=== PATIENT | female | born 1960 | race Caucasian/White ===

== ENCOUNTER 2017-06-08 17:14 | Observation (INO) | payer MEDICARE, MEDICAID, SELFPAY ==
[2017-06-08] VITALS (7 sets, daily range): BP systolic 146–157; BP diastolic 65–74; PULSE 63–88; RESP 16–32; TEMP 36.7–36.9; O2SAT 94–98; BMI 35.2; BMI 33.6
--- NOTE | 2017-06-08 17:37 | EKG12_ITS ---
Test Reason : CP Blood Pressure : / mmHG Vent. Rate : 083 BPM Atrial Rate : 083 BPM P-R Int : 174 ms QRS Dur : 108 ms QT Int : 386 ms P-R-T Axes : 030 -58 021 degrees QTc Int : 453 ms Normal sinus rhythm Left anterior fascicular block Abnormal ECG Confirmed by ALLYSON DEUTSCH, LETTY ([id number]), photograph editor EJSSY DAWN ([id number]) on 06/11/2017 2:13:55 PM Referred By: Confirmed By:LETTY VALADEZ MD
--- NOTE | 2017-06-08 17:37 | RAD_ITS ---
STUDY: X-RAY - LEFT SHOULDER REASON FOR EXAM: Female, 56 years old. Chest pain to left shoulder and neck TECHNIQUE: 4 view(s) of the shoulder. COMPARISON: None. FINDINGS: Normal glenohumeral articulation. Mild degenerative hypertrophy at the acromioclavicular joint. Normal acromion. Normal humeral head and visualized proximal humerus. The soft tissue structures are unremarkable. Normal visualized pulmonary apex. RAD/Shoulder min 2 Views IMPRESSION: No acute bony pathology of the shoulder. Electronically Signed: Fernando Walton DO at 18:15 EDT Tel [phone], Service support ,
--- NOTE | 2017-06-08 17:45 | RAD_ITS ---
STUDY: X-RAY CHEST REASON FOR EXAM: Female, 56 years old. Chest pain TECHNIQUE: Frontal and lateral views COMPARISON: December 02, 2013 FINDINGS: The lungs are clear and expanded. There is no demonstrated pleural abnormality. Normal size heart. Normal mediastinum and nathalie. Normal visualized pulmonary arteries. Normal visualized aortic arch and descending thoracic aorta. Mild degenerative changes of the thoracic spine. Normal visualized ribs, clavicles, and shoulders. There is no demonstrated abnormality of the visualized soft tissue structures of the upper abdomen. RAD/Chest PA and Lateral IMPRESSION: Normal x-ray examination of the chest. Electronically Signed: Fernando Walton DO at 18:16 EDT Tel [phone], Service support ,
[2017-06-08 17:59] LABS: Absolute Lymphocyte Count 3.46 X10^3/ul (0.83-4.51); Absolute Neutrophil Count 4.8 X10^3/uL (2.0-7.7); Basophil# 0.03 X10^3/uL; Basophil% 0.3 % (0-1); Eosinophil# 0.18 X10^3/uL; Hematocrit 47.4 % (37-47); Hemoglobin 15.7 g/dl (12.0-15.0); Lymphocyte # 3.46 X10^3/ul (4.0); Mean Corp Hgb Conc 33.1 g/gl (32-36); Mean Corpuscular Hgb 33.4 pg (27.0-32.0); Mean Corpuscular Volume 100.9 fL (81-99); Mean Platelet Vol. 10.6 fl (6.2-12.0); Monocyte# 0.42 X10^3/uL; Monocyte% 4.7 % (0-10); Neutrophil # 4.77 X10^3/uL (2.7-7.7); Neutrophil % 53.9 % (47-70); Platelet Count 179 K/mm3 (150-450); RBC Distribution Width CV 13.5 % (11.6-14.6); RBC Distribution Width SD 50.2 fl (35.1-43.9); White Blood Count 8.9 K/mm3 (4.4-11.0)
[2017-06-08] MEDS: Aspirin 81 MG TAB.CHEW 324 MG PO (18:01)
[2017-06-08 18:09] LABS: POSITIVE COUNT NO; POSITIVE DIFFERENTIAL NO; POSITIVE MORPHOLOGY NO
[2017-06-08 18:12] LABS: Anion Gap 9 (5-15); BUN 14 mg/dL (7-18); BUN/Creat Ratio 15.2 RATIO (10-20); Calcium,Total 10.6 mg/dL (8.5-10.1); Chloride 103 mmol/L (98-107); Creatinine, Serum 0.92 mg/dL (0.55-1.02); EST Glomerular Filtration Rate 66 mL/min (>60); Est Glom Filt Rate - Afr Amer 80 mL/min (>60); Estimated Creatinine Clearance 47.88 ml/min; Glucose 229 mg/dL (74-106); Potassium 3.8 mmol/L (3.5-5.1); Sodium Level 139 mmol/L (136-145)
--- NOTE | 2017-06-08 18:52 | ED.DCSUM_ITS ---
- ER Visit Summary Date of Service: 06/08/17 Chief Complaint: Chest pain History of Present Illness: The patient is a 56 F who presents with chest pain. She states over the last 2 weeks she has had left upper arm pain from her shoulder down to about the elbow. This is worse with movement or palpation. She had attributed this to a musculoskeletal etiology such as possible rotator cuff injury. However tonight she also developed chest pain. She complained of pain across her upper chest and radiating up into her neck. This is been intermittent over the last 2-1/2 hours. She states that it lasts about 10 minutes at a time and is associated with diaphoresis and sweats. She denies associated nausea vomiting or shortness of breath. There are no exacerbating or relieving factors. She does not have a history of coronary disease but does have diabetes hypertension hyperlipidemia family history of coronary disease in a sibling less than age 55 and she is a smoker. Physical Examination: Afebrile vitals are unremarkable Heart regular rate and rhythm Lungs are clear Abdomen soft 2+ radial pulses Patient has some anterior left shoulder tenderness but no chest or neck tenderness Test Results: EKG shows sinus rhythm with a left anterior fascicular block at a rate of 83. Shoulder x-ray is normal. Chest x-ray is normal. Laboratory studies are unremarkable with a negative troponin. Emergency Department Course and Treatment: She was given aspirin. Although she does have a reproducible component of shoulder pain she does not have reproducible chest pain. I would not expect a shoulder etiology to cause chest and neck pain and associated diaphoresis. Given her multiple cardiac risk factors I do feel she needs a rule out with repeat EKG enzymes and stress testing. Her ALIREZA risk score is 3, her heart score is 5. Treatment Plan: [] Disposition: Admit Impression: Chest pain Left shoulder pain This note was generated with [employer] dictation software. It may contain incorrect words, spelling, and punctuation that were not noted in review of the chart prior to signing ED Disposition - Plan for ED Patient: Chief Complaint: Chest Pain Referrals: Darlene Plascencia NP-C [Primary Care Provider] -
--- NOTE | 2017-06-08 19:41 | PCM.HP.STD ---
Problem List (1) Diabetes mellitus type 2 in obese Status: Chronic (2) Atypical chest pain Status: Acute (3) Hypertension Status: Chronic (4) Chronic back pain Status: Chronic (5) GERD (gastroesophageal reflux disease) Status: Chronic (6) COPD (chronic obstructive pulmonary disease) Status: Chronic History of Present Illness Date of Admission: 06/08/17 Chief Complaint: Chest pain today The patient is a 56 year old F with multiple comorbidities including COPD with active smoker about half a pack to a pack per day but no coronary artery disease history came to ER with sudden onset of chest pain which lasted for about 2 and half hours. She complained of left-sided chest pain, persistent with radiation to left neck along with diaphoresis but no shortness of breath, dizziness, near syncope or syncope. Prior to that, she had left arm/shoulder pain pain 2 weeks. ED, EKG shows normal sinus rhythm with LAD, LAFB at 83 bpm. No change from previous EKG in June 2013. [] Past Medical History Past Medical History (Chronic Problems): Chronic Problems Diabetes mellitus type 2 in obese (Chronic) Hypertension (Chronic) Chronic back pain (Chronic) GERD (gastroesophageal reflux disease) (Chronic) COPD (chronic obstructive pulmonary disease) (Chronic) Allergies No Known Allergies Allergy (Verified 06/08/17 17:27) Home Medications: Ambulatory Orders Medication Instructions Recorded Losartan Potassium [Cozaar] 25 mg PO DAILY 06/13/13 Multivitamins,Therapeutic 1 tablet PO DAILY 06/13/13 [Multivitamin] Polyethylene Glycol 3350 [Miralax] 17 gm PO DAILY PRN 06/13/13 Pravastatin [Pravachol] 80 mg PO DAILY 06/13/13 Pregabalin [Lyrica] 200 mg PO BID 06/13/13 Tizanidine HCl [Zanaflex] 4 mg PO TID PRN 06/13/13 Zolpidem Tartrate [Ambien] 10 mg PO QHS PRN PRN 06/13/13 Aspirin [Aspirin, Baby] 81 mg PO DAILY@0800 01/16/14 Budesonide/Formoterol 80-4.5 2 puff INHALATION BID 01/16/14 [Symbicort 80-4.5 Mcg Inhaler] Cholecalciferol (VIT D3) [Vitamin 1,000 unit PO DAILY 01/16/14 D3] Cyanocobalamin [Vitamin B12] 2,000 mg PO DAILY 01/16/14 Meloxicam [Mobic] 7.5 mg PO BID 09/17/15 Metformin HCl [Glucophage] 500 mg PO DAILY 09/17/15 Dexlansoprazole [Dexilant] 60 mg PO DAILY 11/22/16 Hydrocodone Bitartrate [Hysingla 40 mg PO DAILY 11/22/16 ER] Hydrocodone/Acetaminophen 1 each PO BID PRN 11/22/16 [Hydrocodon-Acetaminoph 7.5-325] Albuterol Sulfate [Ventolin Hfa] 2 puff INHALATION Q4H PRN PRN 06/08/17 Duloxetine HCl [Duloxetine HCl] 06/08/17 Estradiol [Estradiol] 06/08/17 Fluticasone 0.05% [Flonase Nasal 2 spray NASAL DAILY PRN 06/08/17 [place]] Lidocaine [Lidoderm Patch] 1 patch TOPICAL DAILY 06/08/17 Smoking Status: Current every day smoker Review of Systems Constitutional: Denies: Chills, Fever, Weight Change HEENT: Reports: Sinus Congestion. Denies: Head Aches, Sinus Drainage Cardiovascular: Reports: Chest Pain. Denies: Palpitations Respiratory: Denies: Cough, Shortness of breath at rest, Sputum production Gastrointestinal: Denies: Abdominal Pain, Nausea, Vomiting Genitourinary: Denies: Dysuria Musculoskeletal: Denies: Joint Pain, Joint Tenderness Skin: Denies: Rash, Wounds Neurological: Denies: Numbness, Tingling, Focal weakness Psychiatric: Denies: Anxiety, Depression, Homicidal Ideations, Suicidal Ideations Hematologic/ Lymphatic: Denies: Easy Bruising, Easy Bleeding VTE Information - Inpt Only VTE Present on Admission: No VTE Mechan Device Prophylaxis: SCD's VTE Pharm Prophylaxis ordered?: Yes Patient Problems: Active and Suspected Problems Atypical chest pain (Acute) - Physical Exam General: Alert, Oriented x3, Cooperative HEENT: Atraumatic, PERRLA, EOMI, Normocephalic Neck: Supple, No JVD, Negative Carotid Bruits Lungs: Clear to auscultation, No rhonchi, No wheeze, No rales, Diminished Cardiovascular: Regular rate, Normal S1, Normal S2, No murmurs Abdomen: Bowel Sounds Present, Soft, Non Tender, Non-Distended Extremities: No edema, Capillary Refill Less than 3 Seconds Skin: No rashes, No breakdown Musculoskeletal: No Tenderness to Palpation of Joints or Extremities Neurological: Cranial nerves II-XII grossly intact Psych/Mental Status: Normal Affect, Appropriate Vital Signs Temp Pulse Resp BP Pulse Ox 98.4 F 65 16 157/65 H 94 06/08/17 17:23 06/08/17 19:00 06/08/17 19:00 06/08/17 19:00 06/08/17 19:00 Assessment/Plan Active and Suspected Problems Atypical chest pain (Acute) The patient is a 56 year old F with multiple comorbidities including COPD with active smoker about half a pack to a pack per day but no coronary artery disease history came to ER with sudden onset of chest pain which lasted for about 2 and half hours. She complained of left-sided chest pain, persistent with radiation to left neck along with diaphoresis but no shortness of breath, dizziness, near syncope or syncope. Her chest pain aggravates on deep inspiration. Prior to that, she had left arm/shoulder pain pain 2 weeks. ED, EKG shows normal sinus rhythm with LAD, LAFB at 83 bpm. No change from previous EKG in June 2013. 1. Atypical chest pain pleuritic in nature rule out acute coronary syndrome: Her ALIREZA score is 3. She had a stress test and [facility] about in 2014 and was negative as per the patient. The patient is being admitted in PCU. Cycle cardiac enzymes. Treadmill nuclear stress test tomorrow morning. Continue aspirin, nitro ointment 1% as needed for chest pain, statin and losartan. 2. COPD with active smoker: Stable not in exacerbation. Smoking cessation counseling done. Continue Symbicort and albuterol inhaler as needed. Chest x-ray reported normal. 3. Hypertension: Blood pressure slightly elevated. On losartan 25 mg daily first dose now; titrate up if needed. 4. Diabetes mellitus type 2 with uncontrolled hyperglycemia: Glucose 229. A1c tomorrow a.m. Accu-Chek before meals and at bedtime and cover with NovoLog sliding scale. 5. Other comorbidities include chronic arthritis involving lumbar spine with chronic back pain, GERD/PUD and possible diabetic neuropathy: Home medication reconciliation done. On chronic pain medication including hydrocodone 7.5/325 twice daily as needed and hydrocodone extended release 40 mg daily. Discussed with the pharmacist. She is to OxyContin 50 mg twice daily and Vicodin 10/325 twice daily. DVT prophylaxis: On heparin 5000 subcu units twice daily and bilateral SCDs Laboratory Results 06/08/17 17:35: WBC 8.9, RBC 4.70, Hgb 15.7 H, Hct 47.4 H, MCV 100.9 H, MCH 33.4 H, MCHC 33.1, RDW 13.5, RDW Differential 50.2 H, Plt Count 179, MPV 10.6, Immature Gran % (Auto) 0.100, Neut % (Auto) 53.9, Lymph % (Auto) 39.0, [place] % (Auto) 4.7, Eos % (Auto) 2.0, Baso % (Auto) 0.3, Absolute Neuts (auto) 4.8, Absolute Lymphs (auto) 3.46, Total Counted Not Reportable 06/08/17 17:35: Sodium 139, Potassium 3.8, Chloride 103, Carbon Dioxide 27.0, Anion Gap 9, BUN 14, Creatinine 0.92, Estim Creat Clear Calc 47.88, Est GFR (MDRD) Af Amer 80, Est GFR (MDRD) Non-Af 66, BUN/Creatinine Ratio 15.2, Glucose 229 H, Calcium 10.6 H, Troponin I < 0.02 Clinical Impression(s) from Imaging Studies Shoulder X-Ray 06/08/17 17:37 IMPRESSION: No acute bony pathology of the shoulder. Electronically Signed: Fernando Walton DO at 18:15 EDT Tel [phone], Service support , Chest X-Ray 06/08/17 17:45 IMPRESSION: Normal x-ray examination of the chest. Code Visit OBSV E&M: 35755 Initial observation care L3
--- NOTE | 2017-06-08 19:54 | HP.PCM_ITS ---
Problem List (1) Diabetes mellitus type 2 in obese Status: Chronic (2) Atypical chest pain Status: Acute (3) Hypertension Status: Chronic (4) Chronic back pain Status: Chronic (5) GERD (gastroesophageal reflux disease) Status: Chronic (6) COPD (chronic obstructive pulmonary disease) Status: Chronic History of Present Illness Date of Admission: 06/08/17 Chief Complaint: Chest pain today The patient is a 56 year old F with multiple comorbidities including COPD with active smoker about half a pack to a pack per day but no coronary artery disease history came to ER with sudden onset of chest pain which lasted for about 2 and half hours. She complained of left-sided chest pain, persistent with radiation to left neck along with diaphoresis but no shortness of breath, dizziness, near syncope or syncope. Prior to that, she had left arm/shoulder pain pain 2 weeks. ED, EKG shows normal sinus rhythm with LAD, LAFB at 83 bpm. No change from previous EKG in June 2013. [] Past Medical History Past Medical History (Chronic Problems): Chronic Problems Diabetes mellitus type 2 in obese (Chronic) Hypertension (Chronic) Chronic back pain (Chronic) GERD (gastroesophageal reflux disease) (Chronic) COPD (chronic obstructive pulmonary disease) (Chronic) Allergies No Known Allergies Allergy (Verified 06/08/17 17:27) Home Medications: Ambulatory Orders Medication Instructions Recorded Losartan Potassium [Cozaar] 25 mg PO DAILY 06/13/13 Multivitamins,Therapeutic 1 tablet PO DAILY 06/13/13 [Multivitamin] Polyethylene Glycol 3350 [Miralax] 17 gm PO DAILY PRN 06/13/13 Pravastatin [Pravachol] 80 mg PO DAILY 06/13/13 Pregabalin [Lyrica] 200 mg PO BID 06/13/13 Tizanidine HCl [Zanaflex] 4 mg PO TID PRN 06/13/13 Zolpidem Tartrate [Ambien] 10 mg PO QHS PRN PRN 06/13/13 Aspirin [Aspirin, Baby] 81 mg PO DAILY@0800 01/16/14 Budesonide/Formoterol 80-4.5 2 puff INHALATION BID 01/16/14 [Symbicort 80-4.5 Mcg Inhaler] Cholecalciferol (VIT D3) [Vitamin 1,000 unit PO DAILY 01/16/14 D3] Cyanocobalamin [Vitamin B12] 2,000 mg PO DAILY 01/16/14 Meloxicam [Mobic] 7.5 mg PO BID 09/17/15 Metformin HCl [Glucophage] 500 mg PO DAILY 09/17/15 Dexlansoprazole [Dexilant] 60 mg PO DAILY 11/22/16 Hydrocodone Bitartrate [Hysingla 40 mg PO DAILY 11/22/16 ER] Hydrocodone/Acetaminophen 1 each PO BID PRN 11/22/16 [Hydrocodon-Acetaminoph 7.5-325] Albuterol Sulfate [Ventolin Hfa] 2 puff INHALATION Q4H PRN PRN 06/08/17 Duloxetine HCl [Duloxetine HCl] 06/08/17 Estradiol [Estradiol] 06/08/17 Fluticasone 0.05% [Flonase Nasal 2 spray NASAL DAILY PRN 06/08/17 [place]] Lidocaine [Lidoderm Patch] 1 patch TOPICAL DAILY 06/08/17 Smoking Status: Current every day smoker Review of Systems Constitutional: Denies: Chills, Fever, Weight Change HEENT: Reports: Sinus Congestion. Denies: Head Aches, Sinus Drainage Cardiovascular: Reports: Chest Pain. Denies: Palpitations Respiratory: Denies: Cough, Shortness of breath at rest, Sputum production Gastrointestinal: Denies: Abdominal Pain, Nausea, Vomiting Genitourinary: Denies: Dysuria Musculoskeletal: Denies: Joint Pain, Joint Tenderness Skin: Denies: Rash, Wounds Neurological: Denies: Numbness, Tingling, Focal weakness Psychiatric: Denies: Anxiety, Depression, Homicidal Ideations, Suicidal Ideations Hematologic/ Lymphatic: Denies: Easy Bruising, Easy Bleeding VTE Information - Inpt Only VTE Present on Admission: No VTE Mechan Device Prophylaxis: SCD's VTE Pharm Prophylaxis ordered?: Yes Patient Problems: Active and Suspected Problems Atypical chest pain (Acute) - Physical Exam General: Alert, Oriented x3, Cooperative HEENT: Atraumatic, PERRLA, EOMI, Normocephalic Neck: Supple, No JVD, Negative Carotid Bruits Lungs: Clear to auscultation, No rhonchi, No wheeze, No rales, Diminished Cardiovascular: Regular rate, Normal S1, Normal S2, No murmurs Abdomen: Bowel Sounds Present, Soft, Non Tender, Non-Distended Extremities: No edema, Capillary Refill Less than 3 Seconds Skin: No rashes, No breakdown Musculoskeletal: No Tenderness to Palpation of Joints or Extremities Neurological: Cranial nerves II-XII grossly intact Psych/Mental Status: Normal Affect, Appropriate Vital Signs Temp Pulse Resp BP Pulse Ox 98.4 F 65 16 157/65 H 94 06/08/17 17:23 06/08/17 19:00 06/08/17 19:00 06/08/17 19:00 06/08/17 19:00 Assessment/Plan Active and Suspected Problems Atypical chest pain (Acute) The patient is a 56 year old F with multiple comorbidities including COPD with active smoker about half a pack to a pack per day but no coronary artery disease history came to ER with sudden onset of chest pain which lasted for about 2 and half hours. She complained of left-sided chest pain, persistent with radiation to left neck along with diaphoresis but no shortness of breath, dizziness, near syncope or syncope. Her chest pain aggravates on deep inspiration. Prior to that, she had left arm/shoulder pain pain 2 weeks. ED, EKG shows normal sinus rhythm with LAD, LAFB at 83 bpm. No change from previous EKG in June 2013. 1. Atypical chest pain pleuritic in nature rule out acute coronary syndrome: Her ALIREZA score is 3. She had a stress test and [facility] about in 2014 and was negative as per the patient. The patient is being admitted in PCU. Cycle cardiac enzymes. Treadmill nuclear stress test tomorrow morning. Continue aspirin, nitro ointment 1% as needed for chest pain, statin and losartan. 2. COPD with active smoker: Stable not in exacerbation. Smoking cessation counseling done. Continue Symbicort and albuterol inhaler as needed. Chest x- ray reported normal. 3. Hypertension: Blood pressure slightly elevated. On losartan 25 mg daily first dose now; titrate up if needed. 4. Diabetes mellitus type 2 with uncontrolled hyperglycemia: Glucose 229. A1c tomorrow a.m. Accu-Chek before meals and at bedtime and cover with NovoLog sliding scale. 5. Other comorbidities include chronic arthritis involving lumbar spine with chronic back pain, GERD/PUD and possible diabetic neuropathy: Home medication reconciliation done. On chronic pain medication including hydrocodone 7.5/325 twice daily as needed and hydrocodone extended release 40 mg daily. Discussed with the pharmacist. She is to OxyContin 50 mg twice daily and Vicodin 10/325 twice daily. DVT prophylaxis: On heparin 5000 subcu units twice daily and bilateral SCDs Laboratory Results 06/08/17 17:35: WBC 8.9, RBC 4.70, Hgb 15.7 H, Hct 47.4 H, MCV 100.9 H, MCH 33.4 H, MCHC 33.1, RDW 13.5, RDW Differential 50.2 H, Plt Count 179, MPV 10.6, Immature Gran % (Auto) 0.100, Neut % (Auto) 53.9, Lymph % (Auto) 39.0, [place] % ( Auto) 4.7, Eos % (Auto) 2.0, Baso % (Auto) 0.3, Absolute Neuts (auto) 4.8, Absolute Lymphs (auto) 3.46, Total Counted Not Reportable 06/08/17 17:35: Sodium 139, Potassium 3.8, Chloride 103, Carbon Dioxide 27.0, Anion Gap 9, BUN 14, Creatinine 0.92, Estim Creat Clear Calc 47.88, Est GFR ( MDRD) Af Amer 80, Est GFR (MDRD) Non-Af 66, BUN/Creatinine Ratio 15.2, Glucose 229 H, Calcium 10.6 H, Troponin I < 0.02 Clinical Impression(s) from Imaging Studies Shoulder X-Ray 06/08/17 17:37 IMPRESSION: No acute bony pathology of the shoulder. Electronically Signed: Fernando Walton DO at 18:15 EDT Tel [phone], Service support , Chest X-Ray 06/08/17 17:45 IMPRESSION: Normal x-ray examination of the chest. Code Visit OBSV E&M: 51981 Initial observation care L3
[2017-06-08] MEDS: HYDROcodone Bitartrate/Apap 5/325 Tablet PO (20:29)
[2017-06-08] MEDS: 0.9% Normal Saline 1,000 ML 75 ML IV (20:29)
[2017-06-08] MEDS: 0.9% NaCl Peripheral Flush Adult/Peds IV (20:31)
[2017-06-08 21:01] LABS: Bedside Glucose 113 mg/dL (70-110)
[2017-06-08 21:30] LABS: D-Dimer Quantitative (DVT/PE) 0.39 FEU/ug/m (0.27-0.49)
[2017-06-08] MEDS: Albuterol 2.5 MG/3 ML VIAL.NEB. INHALATION (23:10)
[2017-06-08] MEDS: Budesonide Respules 0.5 MG/2 ML AMPUL.NEB. INHALATION (23:10)
[2017-06-08] MEDS: Famotidine 20 MG Tablet PO (23:38)
[2017-06-08] MEDS: Losartan Potassium 25 MG Tablet PO (23:39)
[2017-06-08] MEDS: Pravastatin 80 MG Tablet PO (23:40)
[2017-06-08] MEDS: Zolpidem Tartrate 5 MG Tablet PO (23:49)
[2017-06-08] MEDS: Pregabalin 50 MG Capsule 200 MG PO (23:50)
[2017-06-09] MEDS: tiZANidine HCl 2 MG Tablet 4 MG PO (00:02)
[2017-06-09] MEDS: oxyCODONE CR 15 MG Tablet PO ×2 (00:09→09:45)
[2017-06-09 02:50] VITALS: BP 106/72; PULSE 65; RESP 20; TEMP 36.6; O2SAT 94
[2017-06-09 03:24] VITALS: PULSE 61
--- NOTE | 2017-06-09 05:00 | EKG12_ITS ---
Test Reason : AM EKG Blood Pressure : / mmHG Vent. Rate : 062 BPM Atrial Rate : 062 BPM P-R Int : 188 ms QRS Dur : 104 ms QT Int : 420 ms P-R-T Axes : 036 -54 -06 degrees QTc Int : 426 ms Normal sinus rhythm Left axis deviation Nonspecific T wave abnormality Abnormal ECG When compared with ECG of 08-JUN-2017 17:18, MANUAL COMPARISON REQUIRED, DATA IS UNCONFIRMED Confirmed by ALLYSON DEUTSCH, LETTY ([id number]), publishing editor JESSY DAWN ([id number]) on 06/13/2017 2:33:29 PM Referred By: DR MONTANEZ Confirmed By:LETTY VALADEZ MD
[2017-06-09 06:18] LABS: Prothrombin Time (Protime)PT. 13.4 SECONDS (11.7-14.9)
[2017-06-09 06:19] LABS: Partial Thromboplast Time 31.9 Seconds (24.1-36.2)
[2017-06-09 06:20] LABS: Hematocrit 43.2 % (37-47); Hemoglobin 14.1 g/dl (12.0-15.0); Mean Corp Hgb Conc 32.6 g/gl (32-36); Mean Corpuscular Volume 101.2 fL (81-99); Mean Platelet Vol. 10.4 fl (6.2-12.0); Platelet Count 168 K/mm3 (150-450); RBC Distribution Width CV 13.8 % (11.6-14.6); RBC Distribution Width SD 51.3 fl (35.1-43.9); Red Blood Count 4.27 M/mm3 (4.2-5.4); White Blood Count 6.7 K/mm3 (4.4-11.0)
[2017-06-09 06:21] LABS: Bedside Glucose 181 mg/dL (70-110)
[2017-06-09] MEDS: Aspirin E.C. 81 MG Tablet PO (06:44)
[2017-06-09] MEDS: Losartan Potassium 25 MG Tablet PO (06:44)
[2017-06-09 06:50] LABS: Cholesterol 139 mg/dL (200); High Density Lipoprotein 41 mg/dL; Scan Indicated on CBC? Y/N NO; Thyroid Stim Hormone (TSH) 2.01 uIU/mL (0.358-3.74); Triglycerides 184 mg/dL; Very Low Density Lipoprotein 37 mg/dL (5-40)
[2017-06-09 07:05] VITALS: PULSE 67; RESP 18; O2SAT 96
[2017-06-09] MEDS: Budesonide Respules 0.5 MG/2 ML AMPUL.NEB. INHALATION (07:05)
[2017-06-09] MEDS: Albuterol 2.5 MG/3 ML VIAL.NEB. INHALATION (07:05)
[2017-06-09 08:01] VITALS: PULSE 63
[2017-06-09 08:51] LABS: Hemoglobin A1c 7.8 % (4.2-6.3)
[2017-06-09] MEDS: Multivitamins,Therapeutic Tablet 1 TABLET PO (09:31)
[2017-06-09] MEDS: Pantoprazole Sodium 40 MG Tablet PO (09:31)
[2017-06-09] MEDS: Famotidine 20 MG Tablet PO (09:32)
[2017-06-09] MEDS: Cyanocobalamin 500 MCG Tablet 1000 MCG PO (09:33)
[2017-06-09] MEDS: DULoxetine Hcl 30 MG Capsule PO (09:45)
[2017-06-09 09:46] LABS: Anion Gap 7 (5-15); BUN 13 mg/dL (7-18); BUN/Creat Ratio 15.9 RATIO (10-20); Calcium,Total 9.7 mg/dL (8.5-10.1); Chloride 107 mmol/L (98-107); Creatinine, Serum 0.82 mg/dL (0.55-1.02); EST Glomerular Filtration Rate 76 mL/min (>60); Est Glom Filt Rate - Afr Amer 92 mL/min (>60); Estimated Creatinine Clearance 53.72 ml/min; Glucose 176 mg/dL (74-106); Potassium 4.3 mmol/L (3.5-5.1); Sodium Level 140 mmol/L (136-145)
[2017-06-09] MEDS: Lidocaine 5% Patch 1 PATCH TOPICAL (09:46)
[2017-06-09] MEDS: Pregabalin 50 MG Capsule 200 MG PO ×2 (09:46→11:39)
[2017-06-09] MEDS: Glucerna Shake 120 ML LIQUID PO (09:47)
[2017-06-09 10:00] VITALS: BP 109/65; PULSE 68; RESP 16; TEMP 36.8; O2SAT 96
--- NOTE | 2017-06-09 10:07 | STRESSREP ---
Stress Test Report Exercise myocardial perfusion stress test. 56-year-old lady with a history of chest pain. Stress protocol Resting EKG demonstrates sinus bradycardia with a rate of 59 beats minute normal intervals and noted resting blood pressure is 132/72 mmHg. The patient exercised according to regular Enrique protocol for total duration of 6 minutes and 42 seconds the maximum heart rate attained was 131 bpm which was 80% of maximum predicted heart rate the maximum workload attained was 8 metabolic equivalents. The patient maintained sinus rhythm throughout the recording. At rest there were no ST or T-wave changes noted suggest ischemia peak exercise upsloping ST changes only were noted with no meet the criteria for ischemia. The resting blood pressure is 132/72 with a peak blood pressure 158/72 mmHg. Myocardial perfusion protocol. 12.0 mCi of technetium 99m sestamibi was injected at rest. The patient exercised according to regular Enrique protocol for 6 minutes 42 seconds attaining 80% of maximum predicted heart rate at peak exercise 35.8 mCi of technetium 99m sestamibi was injected stress images were obtained stress and rest images were reconstructed and compared in the short axis vertical long and horizontal long axis. Gated images were also obtained pre- Perfusion SPECT analysis: Review of the stress images demonstrate normal uptake of tracer noted in all areas of the myocardium. The resting images similarly demonstrate normal uptake of tracer noted in all areas of the myocardium. No areas of reversibility are noted suggest ischemia no previous infarct is noted. Gated SPECT analysis. The gated ejection fraction is 77%. Conclusion: Normal exercise myocardial perfusion stress test at a moderate workload. No clinical angina noted. Preserved ejection fraction.
--- NOTE | 2017-06-09 11:13 | PCM.DC ---
- Discharge Diagnoses Current Active Problems: Current Active and Chronic Problems Diabetes mellitus type 2 in obese (Chronic) Atypical chest pain (Acute) Hypertension (Chronic) Chronic back pain (Chronic) GERD (gastroesophageal reflux disease) (Chronic) COPD (chronic obstructive pulmonary disease) (Chronic) You will use the following diet at home:: Calorie/Carbohydrate Controlled (specify 1200, 1400, etc) - 1800 hue / day, Cardiac Your food should be the consistency of: Regular Your liquids should be the consistency of: Regular/Thin Discharge Activity: Return to Normal Activity Allergies/Adverse Reactions: Allergies No Known Allergies Allergy (Verified 06/08/17 17:27) Medications to take at Discharge Losartan Potassium [Cozaar] 25 mg PO DAILY 06/13/13 Multivitamins,Therapeutic [Multivitamin] 1 tablet PO DAILY 06/13/13 Polyethylene Glycol 3350 [Miralax] 17 gm PO DAILY PRN 06/13/13 Pravastatin [Pravachol] 80 mg PO DAILY 06/13/13 Pregabalin [Lyrica] 200 mg PO BID 06/13/13 Tizanidine HCl [Zanaflex] 4 mg PO TID PRN 06/13/13 Zolpidem Tartrate [Ambien] 10 mg PO QHS PRN PRN 06/13/13 Aspirin [Aspirin, Baby] 81 mg PO DAILY@0800 01/16/14 Budesonide/Formoterol 80-4.5 [Symbicort 80-4.5 Mcg Inhaler] 2 puff INHALATION BID 01/16/14 Cholecalciferol (VIT D3) [Vitamin D3] 1,000 unit PO DAILY 01/16/14 Cyanocobalamin [Vitamin B12] 2,000 mg PO DAILY 01/16/14 Meloxicam [Mobic] 7.5 mg PO BID 09/17/15 Dexlansoprazole [Dexilant] 60 mg PO QHS 11/22/16 Hydrocodone Bitartrate [Hysingla ER] 40 mg PO DAILY 11/22/16 Hydrocodone/Acetaminophen [Hydrocodone-Acetamin 7.5-325] 1 each PO BID PRN 11/22/16 Albuterol Sulfate [Ventolin Hfa] 2 puff INHALATION Q4H PRN PRN 06/08/17 Duloxetine HCl 30 mg PO DAILY 06/08/17 Estradiol 1 applicatio TOPICAL PRN PRN 06/08/17 Fluticasone 0.05% [Flonase Nasal [place]] 2 spray NASAL DAILY PRN 06/08/17 Lidocaine [Lidoderm Patch] 1 patch TOPICAL DAILY 06/08/17 Metformin HCl [Glucophage] 500 mg PO BID #30 tab 06/09/17 The following prescriptions were given: Metformin HCl [Glucophage] 500 mg PO BID #30 tab Primary Care Physician: Darlene Plascencia NP-C [Primary Care Provider] - Please follow up with your Primary Care Physician in: 1-2 weeks Please Follow Up With: orthopedic surgery When: 1-2 weeks Proposed Discharge Date: 06/09/17
[2017-06-09 11:14] VITALS: BP 116/68; PULSE 65; RESP 16; TEMP 36.8; O2SAT 96
[2017-06-09 11:46] LABS: Bedside Glucose 246 mg/dL (70-110)
--- NOTE | 2017-06-09 13:42 | PCM.DC.SUM ---
<Shiraz Schneider - Last Filed: 06/09/17 13:42> Discharge Date and Diagnosis Date of Admission: 06/08/17 Date of Discharge: 06/09/17 - Primary Discharge Diagnosis Chest pain - musculoskeletal GERD Nicotine abuse T2DM Obesity COPD - Secondary Discharge Diagnosis Chronic Problems Diabetes mellitus type 2 in obese (Chronic) Hypertension (Chronic) Chronic back pain (Chronic) GERD (gastroesophageal reflux disease) (Chronic) COPD (chronic obstructive pulmonary disease) (Chronic) Hospital Course and Treatment Imaging Results: RAD/Shoulder min 2 Views IMPRESSION: No acute bony pathology of the shoulder. RAD/Chest PA and Lateral IMPRESSION: Normal x-ray examination of the chest. Conclusion: Normal exercise myocardial perfusion stress test at a moderate workload. No clinical angina noted. Preserved ejection fraction. Operations: None Procedures: Stress test Summary of Care Provided: Physical exam on day of discharge: General: Resting comfortably NAD Psych: A/Ox3 normal affect HEENT: PEARRLA AT NC Neck: Supple NT CV: RRR no m/t/r/g/h Resp: CTA Abd: [id number] Soft NT no guarding or rigidity, obese Ext: DP2+= no edema Skin: W/D normal turgor Lymph/Heme: No active bleeding or adenopathy Neuro: CN2-12 intact Hospital course: The patient is a 56 year old F who presented to the ER with chest pain on the left side radiating into her neck and 2 weeks of prior left shoulder pain. She has a hx of t2DM, nicotine abuse, obesity, COPD, arthritis, GERD. In the ER she had negative troponin, negative EKG, and negative chest and shoulder xrays. She is admitted for chest pain workup as she has significant risk factors for coronary disease. She was maintained on telemetry with no events. Troponins were cycled which remained negative. Following morning she has stress test which was negative as well. We also checked her A1c while she was here as her blood sugars were elevated and it demonstrated poor control at 7.8. At this time I recommended that she increase her metformin from 500 daily to 500 twice daily. She also been recently recommended to follow-up with her orthopedic surgeon who did the rotator cuff on her right shoulder. She was complaining significantly that her shoulder pain neck pain and chest pain were related and I feel that this could be related to her underlying arthritis or possible soft tissue injury. She did report having injured her left shoulder 2 weeks ago when lifting a laundry basket. Encouraged her to follow-up with her orthopedic surgeon as well as with her PCP in 1-2 weeks. She was discharged home in stable condition. This patient was seen by Shiraz Schneider PA-C under the supervision of Doctor Mead. [] Discharge Diet: Low fat/ Low Cholesterol, 1600 Calorie Control Diet, 2000 mg Sodium Diet Discharge Activity: Return to Normal Activity Home Medications: Medications to take at Discharge Losartan Potassium [Cozaar] 25 mg PO DAILY 06/13/13 Multivitamins,Therapeutic [Multivitamin] 1 tablet PO DAILY 06/13/13 Polyethylene Glycol 3350 [Miralax] 17 gm PO DAILY PRN 06/13/13 Pravastatin [Pravachol] 80 mg PO DAILY 06/13/13 Pregabalin [Lyrica] 200 mg PO BID 06/13/13 Tizanidine HCl [Zanaflex] 4 mg PO TID PRN 06/13/13 Zolpidem Tartrate [Ambien] 10 mg PO QHS PRN PRN 06/13/13 Aspirin [Aspirin, Baby] 81 mg PO DAILY@0800 01/16/14 Budesonide/Formoterol 80-4.5 [Symbicort 80-4.5 Mcg Inhaler] 2 puff INHALATION BID 01/16/14 Cholecalciferol (VIT D3) [Vitamin D3] 1,000 unit PO DAILY 01/16/14 Cyanocobalamin [Vitamin B12] 2,000 mg PO DAILY 01/16/14 Meloxicam [Mobic] 7.5 mg PO BID 09/17/15 Dexlansoprazole [Dexilant] 60 mg PO QHS 11/22/16 Hydrocodone Bitartrate [Hysingla ER] 40 mg PO DAILY 11/22/16 Hydrocodone/Acetaminophen [Hydrocodone-Acetamin 7.5-325] 1 each PO BID PRN 11/22/16 Albuterol Sulfate [Ventolin Hfa] 2 puff INHALATION Q4H PRN PRN 06/08/17 Duloxetine HCl 30 mg PO DAILY 06/08/17 Estradiol 1 applicatio TOPICAL PRN PRN 06/08/17 Fluticasone 0.05% [Flonase Nasal [place]] 2 spray NASAL DAILY PRN 06/08/17 Lidocaine [Lidoderm Patch] 1 patch TOPICAL DAILY 06/08/17 Metformin HCl [Glucophage] 500 mg PO BID #30 tab 06/09/17 Following Prescrptions Were Given to Patient: Metformin HCl [Glucophage] 500 mg PO BID #30 tab Primary Care Physician: Darlene Plascencia NP-C [Primary Care Provider] - Please follow up with your Primary Care Physician in: 1-2 weeks Please Follow Up With: orthopedic surgery When: 1-2 weeks Disposition: Home Minutes spent on discharge:: 35 Patient Condition:: Stable Medical Necessity - Tobacco Use Smoking Status: Current every day smoker Tobacco Use: Cigarettes Meaningful Use Info Meaningful Use Diagnoses (Choose all that apply): None applicable <Sumi Mead - Last Filed: 06/09/17 14:14> Discharge Date and Diagnosis - Secondary Discharge Diagnosis Chronic Problems Diabetes mellitus type 2 in obese (Chronic) Hypertension (Chronic) Chronic back pain (Chronic) GERD (gastroesophageal reflux disease) (Chronic) COPD (chronic obstructive pulmonary disease) (Chronic) Hospital Course and Treatment Imaging Results: 06/09/17 05:55 Nuclear Stress Test - Treadmil [NM] AM (NON MEDS) Summary of Care Provided: The patient is a 56 year old F [] Code Visit Inpatient E&M: 95571 Disch Hosp
--- NOTE | 2017-06-09 14:03 | DS.PCM_ITS ---
<Shiraz Schneider - Last Filed: 06/09/17 13:42> Discharge Date and Diagnosis Date of Admission: 06/08/17 Date of Discharge: 06/09/17 - Primary Discharge Diagnosis Chest pain - musculoskeletal GERD Nicotine abuse T2DM Obesity COPD - Secondary Discharge Diagnosis Chronic Problems Diabetes mellitus type 2 in obese (Chronic) Hypertension (Chronic) Chronic back pain (Chronic) GERD (gastroesophageal reflux disease) (Chronic) COPD (chronic obstructive pulmonary disease) (Chronic) Hospital Course and Treatment Imaging Results: RAD/Shoulder min 2 Views IMPRESSION: No acute bony pathology of the shoulder. RAD/Chest PA and Lateral IMPRESSION: Normal x-ray examination of the chest. Conclusion: Normal exercise myocardial perfusion stress test at a moderate workload. No clinical angina noted. Preserved ejection fraction. Operations: None Procedures: Stress test Summary of Care Provided: Physical exam on day of discharge: General: Resting comfortably NAD Psych: A/Ox3 normal affect HEENT: PEARRLA AT NC Neck: Supple NT CV: RRR no m/t/r/g/h Resp: CTA Abd: [id number] Soft NT no guarding or rigidity, obese Ext: DP2+= no edema Skin: W/D normal turgor Lymph/Heme: No active bleeding or adenopathy Neuro: CN2-12 intact Hospital course: The patient is a 56 year old F who presented to the ER with chest pain on the left side radiating into her neck and 2 weeks of prior left shoulder pain. She has a hx of t2DM, nicotine abuse, obesity, COPD, arthritis, GERD. In the ER she had negative troponin, negative EKG, and negative chest and shoulder xrays. She is admitted for chest pain workup as she has significant risk factors for coronary disease. She was maintained on telemetry with no events. Troponins were cycled which remained negative. Following morning she has stress test which was negative as well. We also checked her A1c while she was here as her blood sugars were elevated and it demonstrated poor control at 7.8. At this time I recommended that she increase her metformin from 500 daily to 500 twice daily. She also been recently recommended to follow-up with her orthopedic surgeon who did the rotator cuff on her right shoulder. She was complaining significantly that her shoulder pain neck pain and chest pain were related and I feel that this could be related to her underlying arthritis or possible soft tissue injury. She did report having injured her left shoulder 2 weeks ago when lifting a laundry basket. Encouraged her to follow-up with her orthopedic surgeon as well as with her PCP in 1-2 weeks. She was discharged home in stable condition. This patient was seen by Shiraz Schneider PA-C under the supervision of Doctor Mead. [] Discharge Diet: Low fat/ Low Cholesterol, 1600 Calorie Control Diet, 2000 mg Sodium Diet Discharge Activity: Return to Normal Activity Home Medications: Medications to take at Discharge Losartan Potassium [Cozaar] 25 mg PO DAILY 06/13/13 Multivitamins,Therapeutic [Multivitamin] 1 tablet PO DAILY 06/13/13 Polyethylene Glycol 3350 [Miralax] 17 gm PO DAILY PRN 06/13/13 Pravastatin [Pravachol] 80 mg PO DAILY 06/13/13 Pregabalin [Lyrica] 200 mg PO BID 06/13/13 Tizanidine HCl [Zanaflex] 4 mg PO TID PRN 06/13/13 Zolpidem Tartrate [Ambien] 10 mg PO QHS PRN PRN 06/13/13 Aspirin [Aspirin, Baby] 81 mg PO DAILY@0800 01/16/14 Budesonide/Formoterol 80-4.5 [Symbicort 80-4.5 Mcg Inhaler] 2 puff INHALATION BID 01/16/14 Cholecalciferol (VIT D3) [Vitamin D3] 1,000 unit PO DAILY 01/16/14 Cyanocobalamin [Vitamin B12] 2,000 mg PO DAILY 01/16/14 Meloxicam [Mobic] 7.5 mg PO BID 09/17/15 Dexlansoprazole [Dexilant] 60 mg PO QHS 11/22/16 Hydrocodone Bitartrate [Hysingla ER] 40 mg PO DAILY 11/22/16 Hydrocodone/Acetaminophen [Hydrocodone-Acetamin 7.5-325] 1 each PO BID PRN 11/22 Albuterol Sulfate [Ventolin Hfa] 2 puff INHALATION Q4H PRN PRN 06/08/17 Duloxetine HCl 30 mg PO DAILY 06/08/17 Estradiol 1 applicatio TOPICAL PRN PRN 06/08/17 Fluticasone 0.05% [Flonase Nasal [place]] 2 spray NASAL DAILY PRN 06/08/17 Lidocaine [Lidoderm Patch] 1 patch TOPICAL DAILY 06/08/17 Metformin HCl [Glucophage] 500 mg PO BID #30 tab 06/09/17 Following Prescrptions Were Given to Patient: Metformin HCl [Glucophage] 500 mg PO BID #30 tab Primary Care Physician: Darlene Plascencia NP-C [Primary Care Provider] - Please follow up with your Primary Care Physician in: 1-2 weeks Please Follow Up With: orthopedic surgery When: 1-2 weeks Disposition: Home Minutes spent on discharge:: 35 Patient Condition:: Stable Medical Necessity - Tobacco Use Smoking Status: Current every day smoker Tobacco Use: Cigarettes Meaningful Use Info Meaningful Use Diagnoses (Choose all that apply): None applicable <Sumi Mead - Last Filed: 06/09/17 14:14> Discharge Date and Diagnosis - Secondary Discharge Diagnosis Chronic Problems Diabetes mellitus type 2 in obese (Chronic) Hypertension (Chronic) Chronic back pain (Chronic) GERD (gastroesophageal reflux disease) (Chronic) COPD (chronic obstructive pulmonary disease) (Chronic) Hospital Course and Treatment Imaging Results: 06/09/17 05:55 Nuclear Stress Test - Treadmil [NM] AM (NON MEDS) Summary of Care Provided: The patient is a 56 year old F [] Code Visit Inpatient E&M: 36729 Disch Hosp
== END 2017-06-09 11:14 | disposition home or self-care (01) ==
LOC: ED 17:39 → PCU 19:04
PROVIDERS: Admitting Provider Internal Medicine; Emergency Provider Emergency Medicine; Family Provider Nurse Practitioner Family; PCP Nurse Practitioner Family; Visit Provider Internal Medicine
DX: R07.89 Other chest pain (principal); M79.622 Pain in left upper arm; E11.9 Type 2 diabetes mellitus without complications; I10 Essential (primary) hypertension; E78.5 Hyperlipidemia, unspecified; I44.4 Left anterior fascicular block; E66.9 Obesity, unspecified; K21.9 Gastro-esophageal reflux disease without esophagitis; G89.29 Other chronic pain; M54.9 Dorsalgia, unspecified; J44.9 Chronic obstructive pulmonary disease, unspecified; Z71.3 Dietary counseling and surveillance; Z82.49 Family history of ischemic heart disease and other diseases of the circulatory system; Z79.899 Other long term (current) drug therapy; Z79.84 Long term (current) use of oral hypoglycemic drugs; Z68.33 Body mass index [BMI] 33.0-33.9, adult; F17.210 Nicotine dependence, cigarettes, uncomplicated
CPT/HCPCS: 36415; 71046; 73030; 78452; 80048; 80061; 82962; 83036; 84443; 84484; 85025; 85027; 85379; 85610; 85730; 93005; 93017; 94640; 96360; 96361; 97802; 99218; 99283; A9500; J7030; A4216; G0378

== ENCOUNTER 2017-12-16 18:22 | Emergency (ER) | payer OTHER, SELFPAY ==
[2017-12-16 18:23] VITALS: BP 126/77; PULSE 91; RESP 18; TEMP 36.5; O2SAT 95; BMI 32.3
--- NOTE | 2017-12-16 18:38 | RAD_ITS ---
STUDY: X-RAY - LEFT SHOULDER REASON FOR EXAM: Female, 57 years old. Left shoulder pain TECHNIQUE: 4 view(s) of the shoulder. COMPARISON: None. FINDINGS: There is mild degenerative arthrosis of the glenohumeral articulation. There is degenerative arthrosis of the acromioclavicular joint without inferior osseous spur formation. Normal acromion. Normal humeral head and visualized proximal humerus. The soft tissue structures are unremarkable. Normal visualized pulmonary apex. RAD/Shoulder min 2 Views IMPRESSION: Mild degenerative changes of the left shoulder Electronically Signed: Adrian Munoz DO at 19:22 EST Tel , Service support ,
--- NOTE | 2017-12-16 18:42 | ED.DCSUM_ITS ---
- ER Visit Summary Date of Service: 12/16/17 Chief Complaint: Left shoulder pain History of Present Illness: The patient is a 57 F presenting with left shoulder pain. She states it started on Sunday. She does not recall any specific injury or lifting. She states she had similar pain in June 2017. At that time she had a cortisone injection which improved her pain. Pain is worse with movement. She denies chest pain or shortness of breath. She is currently in pain management for her chronic back pain. She is on Vicodin, muscle relaxer, and just finished a course of prednisone. She denies fever or other complaints. Physical Examination: Vitals are stable. Patient is afebrile. Alert no acute distress. HEENT exam is unremarkable. Neck is supple. Lungs are clear and equal bilaterally. Heart is regular rate and rhythm. Extremities diffuse left shoulder tenderness with painful range of motion. Neurovascular intact distally. No erythema or warmth. Skin is warm and dry. No focal neurologic deficit. Remainder of exam is unremarkable. Emergency Department Course and Treatment: Patient is given morphine, Zofran IM. X-ray left shoulder shows mild degenerative changes of the left shoulder. On reevaluation, patient is feeling improved. She is advised to follow-up with her orthopedic surgeon and pain management. Advised return to ED for worsening complaints. Disposition: Discharge home Impression: Left shoulder pain This note was generated with [employer] dictation software. It may contain incorrect words, spelling, and punctuation that were not noted in review of the chart prior to signing ED Disposition - Plan for ED Patient: Chief Complaint: Upper Extremity Injury Referrals: Darlene Plascencia, MIKHAIL-C [Primary Care Provider] -
[2017-12-16] MEDS: Ondansetron 4 MG/2 ML Vial IM (18:46)
[2017-12-16] MEDS: morphine 8 MG/ML Syringe IM (18:46)
--- NOTE | 2017-12-16 19:38 | ED.DEP ---
ED Disposition - Plan for ED Patient: Chief Complaint: Upper Extremity Injury Instructions: ED Sprain Shoulder Referrals: Darlene Plascencia NP-C [Primary Care Provider] -
[2017-12-16 19:43] VITALS: BP 119/71; PULSE 76; RESP 16
== END 2017-12-16 19:47 | disposition home or self-care (01) ==
LOC: ED 18:46
PROVIDERS: Emergency Provider Emergency Medicine; Family Provider Nurse Practitioner Family; PCP Nurse Practitioner Family
DX: M25.512 Pain in left shoulder (principal); I10 Essential (primary) hypertension; E11.9 Type 2 diabetes mellitus without complications; Z79.82 Long term (current) use of aspirin; Z79.84 Long term (current) use of oral hypoglycemic drugs; Z79.899 Other long term (current) drug therapy; Z72.0 Tobacco use
CPT/HCPCS: 73030; 96372; 99282; J2405

== ENCOUNTER 2018-02-18 09:43 | Emergency (ER) | payer BC, MEDICAID, MEDICARE, SELFPAY ==
[2018-02-18 09:43] VITALS: BP 152/77; PULSE 82; RESP 18; TEMP 36.2; O2SAT 96; BMI 32.0
--- NOTE | 2018-02-18 09:55 | CT_ITS ---
STUDY: CT ABDOMEN AND PELVIS WITHOUT CONTRAST REASON FOR EXAM: Female, 57 years old. Left flank pain, history of kidney stones RADIATION DOSAGE (If Supplied By Facility): CTDIvol = ( 13.84 ) mGy, DLP = ( 653.37 ) mGycm TECHNIQUE: Transaxial images were obtained from the dome of the diaphragm to the symphysis pubis without oral contrast, and without intravenous contrast. Sagittal and coronal images were reconstructed. Individualized dose optimization techniques were used for this CT. COMPARISON: CT abdomen and pelvis 09/17/2015, 03/30/2015, 04/27/2014. FINDINGS: Body wall soft tissues: No acute process. Osseous structures: Scoliosis. Mild multilevel lumbar spondylosis contributing to mild foraminal narrowing at multiple levels L3-L4, L4-L5. Posterior shreya and pedicle screw fixation with laminectomy and interbody spacer at L5-S1. Mild hip DJD bilaterally. Inferior chest: Small focus of coronary calcium visible in the RCA. No cardiomegaly. Normal distal esophagus. Lung bases clear. Hepatobiliary: Hepatic steatosis with hepatomegaly, craniocaudal right liver 19.3 cm. Gallbladder surgically absent. Nondilated biliary tree. Pancreas: Moderately severe pancreatic atrophy. There are 3 borderline enlarged lymph nodes adjacent to the michelel hepatis, and head of the pancreas, the largest measuring short axis I cm. Spleen: Normal. Adrenal glands: Normal. Urogenital: 3 mm nonobstructing calyceal calculus of the right kidney superior pole calyx. No right hydronephrosis or hydroureter. Acute left hydronephrosis with perinephric stranding, plethora of the kidney, hydroureter, 4.5 x 6 mm calculus in the proximal 3rd of the ureter. Single punctate retained calyceal calculus, less than 2 mm, nonobstructing. No distal ureteral calculi. Normal urinary bladder. Uterus absent. No adnexal mass or cyst. Pelvic floor and sidewalls and retroperitoneum: No mass or adenopathy. Vasculature: No acute process. Stomach: No acute process. Small bowel and mesentery: No acute process. Large bowel: The appendix is not visible. Large bowel and rectum normal. Free fluid or free air: None. CT/Abdomen/Pelvis without Cont IMPRESSION: Acute urinary calculus passage on the left, with hydronephrosis and hydroureter. The calculus measures approximately 4.5 x 6 mm and lies within the proximal 3rd of the left ureter. There are single punctate nonobstructing calculi retained within each kidney. Hepatic steatosis with hepatomegaly. Prominent pancreatic atrophy. Electronically Signed: Pablo Muñoz MD at 11:10 EST Tel , Service support ,
[2018-02-18 10:21] VITALS: TEMP 36.2
[2018-02-18] MEDS: Morphine 4 MG/ML Syringe IV ×2 (10:32→12:33)
[2018-02-18] MEDS: 0.9% Normal Saline 1,000 ML 250 ML IV (10:32)
[2018-02-18] MEDS: Ondansetron 4 MG/2 ML Vial IV (10:33)
[2018-02-18 10:36] LABS: Absolute Lymphocyte Count 1.94 X10^3/ul (0.83-4.51); Absolute Neutrophil Count 7.3 X10^3/uL (2.0-7.7); Basophil# 0.03 X10^3/uL; Basophil% 0.3 % (0-1); Eosinophils% 1.9 % (0-5); Hematocrit 48.2 % (37-47); Hemoglobin 16.3 g/dl (12.0-15.0); Lymphocyte # 1.94 X10^3/ul (4.0); Lymphocyte % 18.8 % (19-41); Mean Corp Hgb Conc 33.8 g/gl (32-36); Mean Corpuscular Hgb 34.5 pg (27.0-32.0); Mean Corpuscular Volume 102.1 fL (81-99); Mean Platelet Vol. 10.7 fl (6.2-12.0); Monocyte# 0.86 X10^3/uL; Monocyte% 8.3 % (0-10); Neutrophil # 7.26 X10^3/uL (2.7-7.7); Neutrophil % 70.4 % (47-70); Platelet Count 180 K/mm3 (150-450); RBC Distribution Width CV 14.3 % (11.6-14.6); RBC Distribution Width SD 53.5 fl (35.1-43.9); Red Blood Count 4.72 M/mm3 (4.2-5.4); White Blood Count 10.3 K/mm3 (4.4-11.0)
[2018-02-18 10:37] LABS: POSITIVE COUNT NO; POSITIVE DIFFERENTIAL NO; POSITIVE MORPHOLOGY NO
[2018-02-18 10:48] LABS: Anion Gap 9 (5-15); BUN 18 mg/dL (7-18); BUN/Creat Ratio 18.3 RATIO (10-20); Calcium,Total 10.7 mg/dL (8.5-10.1); Chloride 101 mmol/L (98-107); Creatinine, Serum 0.98 mg/dL (0.55-1.02); EST Glomerular Filtration Rate 61 mL/min (>60); Est Glom Filt Rate - Afr Amer 74 mL/min (>60); Estimated Creatinine Clearance 48.89 ml/min; Glucose 188 mg/dL (74-106); Potassium 4.2 mmol/L (3.5-5.1); Sodium Level 137 mmol/L (136-145)
[2018-02-18 11:25] LABS: Mucous, Urine 0 SEEN /hpf (<or=2+)
[2018-02-18 11:28] LABS: Color, Urine Yellow (Yellow); Glucose, Dipstick Normal (Normal); Ketone-Dipstick Negative (Negative); Leukocyte Esterase-Dipstick 100 /ul (Negative); Nitrite-Dipstick Negative (Negative); Occult Blood-Urine 10 /ul (Negative); Protein-Dipstick Negative (Negative); Urine Bilirubin Dipstick Negative (Negative); Urine Clarity Sl. Cloudy (Clear); Urine Urobilinogen Normal (Normal)
[2018-02-18 11:50] LABS: Bacteria RARE /hpf (None Seen); Red Blood Cells-Urine 0-5 SEEN /hpf (0-5); Squamous Epithelial Cells - UA 0-5 SEEN /hpf (5-10); White Blood Cells 0-5 SEEN /hpf (0-5)
--- NOTE | 2018-02-18 12:22 | ED.DCSUM_ITS ---
- ER Visit Summary Date of Service: 02/18/18 Chief Complaint: Left flank pain History of Present Illness: The patient is a 57 F who [facility] She had abrupt onset of left flank pain at 3 AM. She describes it as a sharp pain senna 10 at worst and 7-10 currently. Is worsened by nothing relieved by nothing. She had nausea but no vomiting. She denies any diarrhea. Last bowel was yesterday. No melena hematochezia. No dysuria frequency. However, she does report she is having hematuria. This is similar to when she had kidney stones in the past Physical Examination: Vitals: Stable. Afebrile. General: Well-nourished and well-developed. Head: Normocephalic atraumatic. Neck: Supple, no lymphadenopathy. No JVD. Nontender. Cardiovascular: Regular rate and rhythm. No murmurs. Respiratory: No respiratory distress. Clear to auscultation bilaterally. Abdominal: Soft, mild left lower quadrant tenderness to palpation, nondistended, normal bowel sounds. No guarding, rebound, or peritoneal signs. Back: Nontender. No CVA tenderness. Extremities: Nontender, no edema. Skin: Normal color, no rash. Neurologic: Alert and oriented ?3. Cranial nerves II through XII are intact. Normal strength and sensation. Psych: Normal affect. Test Results: CBC is more for an H&H 16.3 and 48.2, lymphs lites of 19. Chem-7 is more for glucose 188 and calcium of 10.7. UA shows no evidence of infection. CT flank shows a 4.5 x 6 mm calculus proximal third of the left ureter. Emergency Department Course and Treatment: Patient had an IV placed. She was treated Toradol, morphine, and Zofran IV. She is resting comfortably. Treatment Plan: Patient will be discharged with naproxen and Zofran. States that she cannot have any further pain medications at home because she is in pain management. She will be instructed to follow-up Dr. Mcmullen in 1 week if not improving. Return to the emergency department for any worsening symptoms. Disposition: To home in improved and stable condition. Impression: 1. Left ureterolithiasis. This note was generated with [employer] software. It may contain incorrect words, spelling, and punctuation that were not noted in review of the chart prior to signing ED Disposition - Plan for ED Patient: Disposition: Home or Assisted Living Chief Complaint: Flank Pain Instructions: ED Stone Renal W Colic Prescriptions: Ondansetron [Zofran Odt] 4 mg PO Q8H PRN PRN #10 tablet PRN Reason: Nausea Naproxen [Naprosyn] 500 mg PO BID #14 tablet Referrals: Sandeep Mcmullen MD [STAFF PHYSICIAN] - 1 Week if not improving
[2018-02-18] MEDS: Ketorolac 30 MG/ML Syringe IV (12:34)
[2018-02-18 12:41] VITALS: PULSE 84; RESP 16; TEMP 36.6; O2SAT 97
== END 2018-02-18 12:44 | disposition home or self-care (01) ==
PROVIDERS: Emergency Provider Emergency Medicine; Family Provider Nurse Practitioner Family; PCP Nurse Practitioner Family
DX: N13.2 Hydronephrosis with renal and ureteral calculous obstruction (principal); Z87.442 Personal history of urinary calculi; E11.9 Type 2 diabetes mellitus without complications; I10 Essential (primary) hypertension; J44.9 Chronic obstructive pulmonary disease, unspecified; Z72.0 Tobacco use; Z79.82 Long term (current) use of aspirin; Z79.84 Long term (current) use of oral hypoglycemic drugs; Z79.899 Other long term (current) drug therapy
CPT/HCPCS: 74176; 80048; 81001; 85025; 96361; 96374; 96375; 96376; 99284; J7030; A4216; J2405

== ENCOUNTER → 2018-02-19 09:59 | Outpatient (CLI) | payer BC, MEDICARE, MEDICAID, SELFPAY ==
[2018-02-18 09:43] VITALS: BMI 32.0
--- NOTE | 2018-02-19 10:05 | EKG12_ITS ---
Test Reason : DM2 Blood Pressure : / mmHG Vent. Rate : 081 BPM Atrial Rate : 081 BPM P-R Int : 174 ms QRS Dur : 106 ms QT Int : 368 ms P-R-T Axes : 036 -55 -09 degrees QTc Int : 427 ms Normal sinus rhythm Left anterior fascicular block Nonspecific T wave abnormality Poor R wave progression Abnormal ECG Confirmed by GUILLERMINA DEUTSCH, PADMINI ([id number]), editor at large JESSY DAWN ([id number]) on 02/20/2018 1:54:09 PM Referred By: Darlene HAND Confirmed By:PADMINI SARMIENTO MD
== END ==
PROVIDERS: Family Provider Nurse Practitioner Family; PCP Nurse Practitioner Family; Referring Provider Nurse Practitioner Family; Visit Provider Nurse Practitioner Family
DX: E11.9 Type 2 diabetes mellitus without complications (principal)
CPT/HCPCS: 93005

== ENCOUNTER 2018-02-23 22:04 | Inpatient (IN) | payer MEDICARE, BC, MEDICAID, SELFPAY ==
[2018-02-23 22:05] VITALS: BP 131/90; PULSE 91; RESP 14; TEMP 37; O2SAT 96; BMI 34.2
--- NOTE | 2018-02-23 22:14 | ED.RN ---
pt asked if she had any alcohol to drink this evening due to the smell of alcohol on her breath. pt stated no I haven't drank in 10 years. pt informed that some medications that we give can be affect by ingestion on alcohol. She was upset and stated you can drug test me. I told her we hand no indication to drug test her and my only concern was her being adversely affected by medication. maame fraire, rn [id number]
--- NOTE | 2018-02-23 22:20 | CT_ITS ---
STUDY: CT ABDOMEN AND PELVIS WITHOUT CONTRAST REASON FOR EXAM: Female, 57 years old. Left flank pain RADIATION DOSAGE (If Supplied By Facility): CTDIvol = ( 24.87 ) mGy, DLP = ( 1096.50 ) mGycm TECHNIQUE: Transaxial 3.75 mm images were obtained from the dome of the diaphragm to the symphysis pubis without oral contrast, and without intravenous contrast. Sagittal and coronal images were reconstructed. This examination is limited for the evaluation of gastrointestinal, solid organs and vascular structures due to the lack of intravenous and oral contrast. Individualized dose optimization techniques were used for this CT. COMPARISON: CT abdomen pelvis 02/18/2018. 09/17/2015. FINDINGS: The visualized lung bases are unremarkable. The visualized portions of the heart are within normal limits. There is decreased attenuation of the enlarged liver consistent with steatosis. There is lobular liver contour. There are surgical clips in the gallbladder fossa consistent with a prior cholecystectomy. Normal spleen. There is fat deposition in the pancreas. Normal bilateral adrenal glands. Stable nonobstructing bilateral small renal calculi. Stable right perirenal stranding.. Small to the moderate left hydronephrosis and hydroureter with perirenal and ureteral stranding and an obstructing calculus of 0.6 cm previously seen in the proximal to mid left ureter currently the left proximal external iliac level in the mid pelvis Normal visualized stomach. Normal small intestine. There is moderate amount of fecal material. There is no obstruction. There are multiple colonic diverticula consistent with diverticulosis. The appendix is visualized and appears normal. There is diffuse atherosclerotic calcification of the abdominal aorta and pelvic arteries, without a demonstrated aneurysm. Normal inferior vena cava. Normal retroperitoneum. Normal urinary bladder. There is absence of the uterus consistent with a prior hysterectomy. Normal abdominal wall. Lower lumbar laminectomy with pedicle fusion. CT/Abdomen/Pelvis without Cont IMPRESSION: Mild to moderate left hydronephrosis and hydroureter with the previously seen proximally left ureteral calculus currently located in the left mid pelvis of 0.6cm. Stable bilateral nonobstructing small renal calculi, hepatomegaly, hepatic steatosis, cholecystectomy, hysterectomy, pancreas involution, atherosclerosis, osseous changes as above. Electronically Signed: Yovana Gerenwood MD at 23:25 EST , Service support ,
[2018-02-23 22:32] LABS: Absolute Lymphocyte Count 2.74 X10^3/ul (0.83-4.51); Absolute Neutrophil Count 7.9 X10^3/uL (2.0-7.7); Basophil# 0.04 X10^3/uL; Basophil% 0.3 % (0-1); Eosinophil# 0.41 X10^3/uL; Eosinophils% 3.4 % (0-5); Hematocrit 44.2 % (37-47); Lymphocyte # 2.74 X10^3/ul (4.0); Lymphocyte % 22.4 % (19-41); Mean Corp Hgb Conc 33.9 g/gl (32-36); Mean Corpuscular Hgb 34.2 pg (27.0-32.0); Mean Corpuscular Volume 100.9 fL (81-99); Mean Platelet Vol. 10.9 fl (6.2-12.0); Monocyte# 1.12 X10^3/uL; Monocyte% 9.2 % (0-10); Neutrophil # 7.86 X10^3/uL (2.7-7.7); Neutrophil % 64.4 % (47-70); POSITIVE COUNT NO; POSITIVE DIFFERENTIAL NO; POSITIVE MORPHOLOGY NO; Platelet Count 222 K/mm3 (150-450); RBC Distribution Width SD 51.3 fl (35.1-43.9); Red Blood Count 4.38 M/mm3 (4.2-5.4); White Blood Count 12.2 K/mm3 (4.4-11.0)
[2018-02-23] MEDS: HYDROmorphone 1 MG/ML Syringe IV (22:40)
[2018-02-23] MEDS: Ketorolac 30 MG/ML Syringe 15 MG IV (22:40)
[2018-02-23] MEDS: Ondansetron 4 MG/2 ML Vial IV (22:40)
[2018-02-23] MEDS: 0.9% Normal Saline 1,000 ML 125 ML IV (22:40)
[2018-02-23 22:42] LABS: Anion Gap 7 (5-15); BUN 16 mg/dL (7-18); BUN/Creat Ratio 11.4 RATIO (10-20); Calcium,Total 10.7 mg/dL (8.5-10.1); Chloride 103 mmol/L (98-107); EST Glomerular Filtration Rate 41 mL/min (>60); Est Glom Filt Rate - Afr Amer 49 mL/min (>60); Estimated Creatinine Clearance 31.08 ml/min; Glucose 233 mg/dL (74-106); Potassium 5.1 mmol/L (3.5-5.1); Sodium Level 137 mmol/L (136-145)
[2018-02-23 22:46] VITALS: BP 156/77; PULSE 80; PULSE 81; RESP 16; TEMP 37.1; O2SAT 95
--- NOTE | 2018-02-23 22:52 | ED.VISSUMM ---
- ER Visit Summary Date of Service: 02/23/18 Chief Complaint: [Flank pain] History of Present Illness: The patient is a 57 F [presents to the emergency department with left-sided flank pain that started about a week ago. Patient was seen in the emergency department 5 days ago diagnosed with a ureteral stone on the left measuring approximately 6 x 4.5 mm. Patient states that she had been doing relatively well although she is had some hematuria intermittently. Pain became more severe today. Patient also states she has not had a good bowel movement in over 8 days. Patient's been using laxatives at home. She denies any fevers. Patient had some nausea.] Physical Examination: [HEENT-PERRLA, EOMI. Cranial nerves II through XII grossly intact. TMs clear. Mucous membranes moist. No adenopathy. Cardiovascular-regular rate and rhythm without murmur or ectopy Lungs-clear to auscultation, chest wall stable without crepitus or subcu emphysema Abdomen-normoactive bowel sounds, soft. Patient does have some tenderness palpation over left lower quadrant with some guarding. Patient has CVA tenderness on the left. There is no rebound, rigidity, or perineal signs. Extremities-intact ?4, normal range of motion, normal pulses, atraumatic] Test Results: [CBC with differential showed a white count 12.2, hemoglobin 15, hematocrit 44, platelets 222. Chemistries unremarkable. BUN was 16 and creatinine 1.4. Glucose was 233. Urinalysis showed 500 leukocyte esterase, 5-10 WBCs, 5-10 RBCs, rare bacteria. CT scan of the abdomen pelvis without contrast showed a 6 mm stone left mid pelvis which is more distal than 5 days ago however patient continues to have mild to moderate hydroureter and hydronephrosis.] Emergency Department Course and Treatment: Patient was medicated with Toradol, Zofran, and Dilaudid. She had good improvement in her pain. [] Treatment Plan: [Admit for pain control and possible evaluation for intervention given the stone is 6 mm and may or may not pass.] Disposition: [Admit] Impression: [Urolithiasis Intractable pain] This note was generated with [employer] software. It may contain incorrect words, spelling, and punctuation that were not noted in review of the chart prior to signing ED Disposition - Plan for ED Patient: Chief Complaint: Flank Pain Referrals: Darlene Plascencia, [employer] [Primary Care Provider] -
[2018-02-23 22:57] LABS: Mucous, Urine 0 SEEN /hpf (<or=2+); Squamous Epithelial Cells - UA 0 SEEN /hpf (5-10)
[2018-02-23 23:02] LABS: Color, Urine Yellow (Yellow); Glucose, Dipstick 50 mg/dl (Normal); Ketone-Dipstick Negative (Negative); Leukocyte Esterase-Dipstick 500 /ul (Negative); Nitrite-Dipstick Negative (Negative); Occult Blood-Urine 250 /ul (Negative); Protein-Dipstick Negative (Negative); Urine Bilirubin Dipstick Negative (Negative); Urine Clarity Clear (Clear); Urine Urobilinogen Normal (Normal)
[2018-02-23 23:10] LABS: Bacteria RARE /hpf (None Seen); Red Blood Cells-Urine 5-10 SEEN /hpf (0-5); White Blood Cells 5-10 SEEN /hpf (0-5)
--- NOTE | 2018-02-23 23:40 | PCM.HP.STD ---
Problem List (1) Nephrolithiasis Status: Acute (2) REINALDO (acute kidney injury) Status: Acute (3) Obesity (BMI 30.0-34.9) Status: Chronic (4) Diabetes mellitus type 2 in obese Status: Chronic (5) Hypertension Status: Chronic Qualifiers: Hypertension type: essential hypertension Qualified Code(s): I10 - Essential (primary) hypertension (6) Chronic back pain Status: Chronic Qualifiers: Back pain location: back pain in unspecified location Back pain laterality: unspecified Qualified Code(s): M54.9 - Dorsalgia, unspecified; G89.29 - Other chronic pain (7) GERD (gastroesophageal reflux disease) Status: Chronic Qualifiers: Esophagitis presence: esophagitis presence not specified Qualified Code(s): K21.9 - Gastro-esophageal reflux disease without esophagitis (8) COPD (chronic obstructive pulmonary disease) Status: Chronic Qualifiers: COPD type: unspecified COPD Qualified Code(s): J44.9 - Chronic obstructive pulmonary disease, unspecified (9) Tobacco use Status: Chronic History of Present Illness Date of Admission: 02/23/18 Chief Complaint: L flank pain, ongoing, recent kidney stone diagnosis 1 week prior The patient is a 57 y/o F w/ PMHx: Obesity, HTN, HLD, Diabetes mellitus type II, Chronic Pain Syndrome, GERD, Chronic COPD, Tobacco use who presents to the [facility] ED on 02/23/18 with history of ongoing L flank discomfort, severe in nature, 10/10 with notable nausea without emesis, hematuria x 1 week w/ ED evaluation on 02/18/18 secondary to symptoms w/ CT A/P notable for kidney stone who now re-presents to the [facility] secondary to ongoing symptoms, not improving with no associated fever or chills. She notes secondary to increased pain regimen she has had recently constipation. Prior ED with CT A/P at that time w/ noted acute urinary calculus passage on the left with hydronephrosis and hydroureter with calculus measuring 4.5 x 6 mm and lying within the proximal third of the left ureter. Current work-up in the ED included T 98.6, heart rate 91, BP 131/90, 96% on room air, CBC with WBC 12.2, hemoglobin 15, platelets 222 with left shift, BMP with BUN/creatinine 16/1.40 with prior baseline noted 0.9, glucose 233, calcium 10.7, urinalysis with no evidence of acute infection, CT abdomen and pelvis with mild to moderate left hydronephrosis and hydroureter with previously seen proximal left ureteral caliculus currently located in the left mid pelvis of 0.6 cm, stable bilateral nonobstructing small renal calculi, hepatomegaly, hepatic steatosis, cholecystectomy, hysterectomy, pancreas involution, atherosclerosis, osseous changes. In the ED patient administered normal saline, Dilaudid, Toradol, Zofran. Past Medical History Past Medical History (Chronic Problems): Chronic Problems Diabetes mellitus type 2 in obese (Chronic) Hypertension (Chronic) Chronic back pain (Chronic) GERD (gastroesophageal reflux disease) (Chronic) COPD (chronic obstructive pulmonary disease) (Chronic) Obesity (BMI 30.0-34.9) (Chronic) Tobacco use (Chronic) Allergies No Known Allergies Allergy (Verified 02/23/18 22:10) Home Medications: Ambulatory Orders Medication Instructions Recorded Losartan Potassium [Cozaar] 25 mg PO DAILY 06/13/13 Multivitamins,Therapeutic 1 tablet PO DAILY 06/13/13 [Multivitamin] Polyethylene Glycol 3350 [Miralax] 17 gm PO DAILY PRN 06/13/13 Pravastatin [Pravachol] 80 mg PO DAILY 06/13/13 Pregabalin [Lyrica] 200 mg PO BID 06/13/13 Tizanidine HCl [Zanaflex] 4 mg PO TID PRN 06/13/13 Zolpidem Tartrate [Ambien] 10 mg PO QHS PRN PRN 06/13/13 Aspirin [Aspirin, Baby] 81 mg PO DAILY@0800 01/16/14 Budesonide/Formoterol 80-4.5 2 puff INHALATION BID 01/16/14 [Symbicort 80-4.5 Mcg Inhaler] Cholecalciferol (VIT D3) [Vitamin 1,000 unit PO DAILY 01/16/14 D3] Meloxicam [Mobic] 7.5 mg PO BID 09/17/15 Dexlansoprazole [Dexilant] 60 mg PO QHS 11/22/16 Hydrocodone Bitartrate [Hysingla 40 mg PO DAILY 11/22/16 ER] Albuterol Sulfate [Ventolin Hfa] 2 puff INHALATION Q4H PRN PRN 06/08/17 Duloxetine HCl 30 mg PO DAILY 06/08/17 Lidocaine [Lidoderm Patch] 1 patch TOPICAL DAILY 06/08/17 Metformin HCl [Glucophage] 500 mg PO BID #30 tab 06/09/17 Hydrocodone/Acetaminophen 1 tab PO BID 02/18/18 [Hydrocodone-Acetamin 10-325 mg] Ondansetron [Zofran Odt] 4 mg PO Q8H PRN PRN #10 tablet 02/18/18 Ascorbic Acid/Ascorbate Sodium 500 mg PO TID 02/24/18 [Vitamin C 500 mg Wafer] Surgical History: - - Appendectomy, cholecystectomy, hysterectomy, right shoulder surgery, lumbar back surgery. 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 Tobacco Use: Cigarettes Alcohol: None Drugs: None - *Family History Maternal History Items: Diabetes, Hypertension Paternal History Items: Diabetes, Heart Disease, Hypertension Review of Systems Constitutional: Reports: Anorexia, Malaise, Weakness, Fatigue. Denies: Chills, Fever, Weight Change HEENT: Denies: Head Aches, Sinus Congestion, Sinus Drainage Cardiovascular: Denies: Chest Pain, Palpitations Respiratory: Denies: Cough, Shortness of breath at rest, Sputum production Gastrointestinal: Reports: Abdominal Pain, Constipation, Nausea. Denies: Vomiting Genitourinary: Reports: Hematuria. Denies: Dysuria Musculoskeletal: Reports: Back Pain, Joint Pain, Neck Pain. Denies: Joint Tenderness Skin: Denies: Rash, Wounds Neurological: Denies: Numbness, Tingling, Focal weakness Psychiatric: Reports: Anxiety, Depression. Denies: Homicidal Ideations, Suicidal Ideations Hematologic/ Lymphatic: Denies: Easy Bruising, Easy Bleeding VTE Information - Inpt Only VTE Present on Admission: No VTE Mechan Device Prophylaxis: SCD's VTE Pharm Prophylaxis ordered?: Yes Patient Problems: Active and Suspected Problems Nephrolithiasis (Acute) REINALDO (acute kidney injury) (Acute) Subjective: Seated upright in the ED bed, uncomfortable appearing. Objective: Physical Examination: General: awake, alert, oriented x 3 and cooperative, seated upright in the ED bed, fatigued and uncomfortable appearing. Skin: normal color, turgor, no icterus, cyanosis. HEENT: AT/NC, EOMI, PERRLA, dry MM, no carotid bruits or JVD noted. Lungs: Diminished breath sounds bases, moderate effort, mild soft end expiratory wheeze occasionally, no rhonchi or rales noted. Heart: Regular rate and rhythm; no gallop, rub audible. Abdomen: soft, obese, L flank discomfort and L sided TTP, ND, normal BS, no HSM. Extremities: no cyanosis, clubbing, or edema. Neurological: patient awake, alert, oriented x 3; cognitive function intact; pupils equally reactive to light and accomodation; cranial nerves II-XII grossly normal, moving all 4 extremities, no focal deficits, strength moderately to severely globally decreased secondary to acute presentation. Psychiatric: affect appears fatigued, no acute evidence of depressive or anxiety feelings. - Physical Exam Vital Signs Temp Pulse Resp BP Pulse Ox 98.8 F 81 16 156/77 H 95 02/23/18 22:46 02/23/18 22:46 02/23/18 22:46 02/23/18 22:46 02/23/18 22:46 Oxygen Delivery Method Room Air Weight: 175 lb 0.752 oz Body Mass Index (BMI) 34.2 Laboratory Tests Past 24 Hrs 02/23/18 02/23/18 02/23/18 22:20 22:20 22:49 WBC 12.2 H RBC 4.38 Hgb 15.0 Hct 44.2 MCV 100.9 H MCH 34.2 H MCHC 33.9 RDW 14.0 RDW Differential 51.3 H Plt Count 222 MPV 10.9 Immature Gran % (Auto) 0.300 Neut % (Auto) 64.4 Lymph % (Auto) 22.4 [place] % (Auto) 9.2 Eos % (Auto) 3.4 Baso % (Auto) 0.3 Absolute Neuts (auto) 7.9 H Absolute Lymphs (auto) 2.74 Total Counted Not Reportable Sodium 137 Potassium 5.1 Chloride 103 Carbon Dioxide 27.0 Anion Gap 7 BUN 16 Creatinine 1.40 H Estim Creat Clear Calc 31.08 Est GFR (MDRD) Af Amer 49 L Est GFR (MDRD) Non-Af 41 L BUN/Creatinine Ratio 11.4 Glucose 233 H Calcium 10.7 H Urine Color Yellow Urine Clarity Clear Urine pH 7.0 Ur Specific [place] 1.010 Urine Protein Negative Urine Glucose (UA) 50 H Urine Ketones Negative Urine Occult Blood 250 H Urine Nitrite Negative Urine Bilirubin Negative Urine Urobilinogen Normal Ur Leukocyte Esterase 500 H Urine RBC 5-10 SEEN Urine WBC 5-10 SEEN Ur Squamous Epith Cells 0 SEEN Urine Bacteria RARE Urine Mucus 0 SEEN Assessment/Plan All Active Problems Atypical chest pain (Acute) Nephrolithiasis (Acute) REINALDO (acute kidney injury) (Acute) The patient is a 57 y/o F w/ PMHx: Obesity, HTN, HLD, Diabetes mellitus type II, Chronic Pain Syndrome, GERD, Chronic COPD, Tobacco use who presents to the [facility] ED on 02/23/18 with history of ongoing L flank discomfort, severe in nature, 11/14 with notable nausea without emesis, hematuria x 1 week. (1) Acute Flank Pain, secondary to Acute Nephrolithiasis: WBC w/ 12.2 w/ L shift, UA not remarkable, CT abdomen and pelvis with mild to moderate left hydronephrosis and hydroureter with previously seen proximal left ureteral caliculus currently located in the left mid pelvis of 0.6 cm, stable bilateral nonobstructing small renal calculi, hepatomegaly, hepatic steatosis, cholecystectomy, hysterectomy, pancreas involution, atherosclerosis, osseous changes.. Will admit to MS, maintain on aggressive hydration, defer abx as UA not marked appearing, afebrile, maintain NPO for possible intervention needs if ongoing pain, not improving, worsened renal function, IV/Oral pain regimen, PRN anti-emetics, monitor I&Os. Given size of calculus may possibly pass; however, no increased Cr, ongoing pain over 1 week, will request urology involvement. (2) Acute kidney injury: Secondary to acute nephrolithasis as noted, poor intake. Admission BUN/Cr 16/1.40, prior baseline creatinine noted to be 0.9. Will hydrate, hold nephrotoxic medications and repeat chemistry in AM. (3) Hypertension: Holding ARB given mild REINALDO, PRN hydralazine in interim. (4) Hyperlipidemia: Continue home statin regimen. (5) Chronic COPD: ATC duonebs, PRN albuterol, HOB, IS parameters. (6) Chronic Pain Syndrome: Chronic back pain, prior lumbar surgery, pending cervical intervention, holding mobic and IBU given REINALDO, continue home cymbalta, will continue Lyrica but if worsened renal function will need to discontinue, as well as hydrocodone bitartrate to maintain baseline with additional IV/oral as needed regimen for acute presentation. (7) Diabetes mellitus type II w/ Hyperglycemia: Hold oral home regimen, NPO status, HgbA1c pending, accu checks w/ ISS. (8) Obesity: Weight loss and lifestyle changes encouraged. (9) Anxiety and Depression: Continue home cymbalta regimen. (10) GERD: PPI. (11) DVT Prophylaxis: SCDs, heparin. Code Visit OBSV E&M: 08768 Initial observation care L3
[2018-02-23 23:50] VITALS: BP 133/49; PULSE 80; RESP 13; RESP 16; TEMP 36.8; O2SAT 93
[2018-02-24] VITALS (8 sets, daily range): BP systolic 127–147; BP diastolic 61–72; PULSE 70–82; RESP 16–20; TEMP 36.4–37.4; O2SAT 93–98; BMI 32.5
[2018-02-24 00:55] LABS: Magnesium 2.2 mg/dL (1.6-2.6)
[2018-02-24] MEDS: 0.9% Normal Saline 1,000 ML 125 ML IV ×2 (00:59→06:39)
[2018-02-24] MEDS: Magnesium Hydroxide 30 ML UDC PO ×2 (01:18→15:31)
[2018-02-24] MEDS: Pregabalin 50 MG Capsule 200 MG PO ×3 (01:18→21:08)
[2018-02-24] MEDS: oxyCODONE 5 MG Tablet PO ×2 (01:19→08:12)
[2018-02-24] MEDS: Temazepam 15 MG Capsule PO (01:19)
[2018-02-24] MEDS: Pravastatin 80 MG Tablet PO ×2 (01:19→21:07)
[2018-02-24] MEDS: tiZANidine HCl 2 MG Tablet 4 MG PO (01:19)
[2018-02-24] MEDS: HYDROmorphone 1 MG/ML Syringe IV ×5 (06:29→21:59)
[2018-02-24] MEDS: Ondansetron 4 MG/2 ML Vial IV (06:30)
[2018-02-24] MEDS: 0.9% NaCl Peripheral Flush Adult/Peds IV ×4 (06:30→18:48)
[2018-02-24 06:37] LABS: Absolute Lymphocyte Count 2.94 X10^3/ul (0.83-4.51); Absolute Neutrophil Count 5.1 X10^3/uL (2.0-7.7); Basophil# 0.03 X10^3/uL; Basophil% 0.3 % (0-1); Eosinophils% 3.2 % (0-5); Hematocrit 39.8 % (37-47); Hemoglobin 13.3 g/dl (12.0-15.0); Lymphocyte # 2.94 X10^3/ul (4.0); Lymphocyte % 31.6 % (19-41); Mean Corp Hgb Conc 33.4 g/gl (32-36); Mean Corpuscular Hgb 33.4 pg (27.0-32.0); Mean Platelet Vol. 10.6 fl (6.2-12.0); Monocyte# 0.88 X10^3/uL; Monocyte% 9.5 % (0-10); Neutrophil # 5.11 X10^3/uL (2.7-7.7); Neutrophil % 55.1 % (47-70); Platelet Count 177 K/mm3 (150-450); RBC Distribution Width CV 13.8 % (11.6-14.6); RBC Distribution Width SD 50.1 fl (35.1-43.9); Red Blood Count 3.98 M/mm3 (4.2-5.4); White Blood Count 9.3 K/mm3 (4.4-11.0)
[2018-02-24 06:39] LABS: POSITIVE COUNT NO; POSITIVE DIFFERENTIAL NO; POSITIVE MORPHOLOGY NO
[2018-02-24 06:50] LABS: Bedside Glucose 138 mg/dL (70-110)
[2018-02-24 06:59] LABS: Anion Gap 7 (5-15); BUN 19 mg/dL (7-18); BUN/Creat Ratio 14.6 RATIO (10-20); Calcium,Total 9.9 mg/dL (8.5-10.1); Chloride 106 mmol/L (98-107); EST Glomerular Filtration Rate 45 mL/min (>60); Est Glom Filt Rate - Afr Amer 54 mL/min (>60); Estimated Creatinine Clearance 35.16 ml/min; Glucose 166 mg/dL (74-106); Potassium 4.7 mmol/L (3.5-5.1); Sodium Level 140 mmol/L (136-145)
[2018-02-24] MEDS: Ipratropium/Albuterol Sulfate 3 ML AMPUL.NEB INHALATION ×3 (07:07→19:35)
[2018-02-24 07:39] LABS: Hemoglobin A1c 8.2 % (4.2-6.3)
--- NOTE | 2018-02-24 08:03 | PN_ITS ---
Patient Problems: Active and Suspected Problems Nephrolithiasis (Acute) REINALDO (acute kidney injury) (Acute) Subjective: Patient seen and examined. Her pain is controlled at the time of exam. Denies any fever or chills or dysuria or hematuria. Urology consulted, plans on intervention on 02/25/2018. Vitals/I&O's: Vital Signs Temp Pulse Resp BP Pulse Ox 99.4 F H 75 16 147/63 H 96 02/24/18 00:56 02/24/18 00:56 02/24/18 00:56 02/24/18 00:56 02/24/18 00:56 Oxygen Delivery Method Room Air Weight: 78.1 kg Body Mass Index (BMI) 32.5 Intake and Output for Last 24 Hours 02/22/18 02/23/18 02/24/18 23:59 23:59 23:59 Intake Total 597 / 597 Output Total 150 / 150 Balance 447 / 447 General: Alert, Oriented x3, Cooperative, No apparent distress, - - obese HEENT: Atraumatic, PERRLA, EOMI, Normocephalic Oral: Moist Mucosa Neck: Supple, No JVD, Negative Carotid Bruits Lungs: Clear to auscultation, Normal air movement Cardiovascular: Regular rate, Regular Rhythm, Normal S1, Normal S2, No murmurs Abdomen: Bowel Sounds Present, Soft, Non-Distended, No Hepato-splenomegaly, Tender - left flank tenderness Extremities: No edema, Capillary Refill Less than 3 Seconds Skin: No rashes, No breakdown Musculoskeletal: No Tenderness to Palpation of Joints or Extremities Lymphatic: No Cervical, Supraclavicular, or Inguinal Adenopathy Neurological: Cranial nerves II-XII grossly intact, Neuro grossly intact Psych/Mental Status: Normal Affect, Appropriate Laboratory Results 02/23/18 22:20: WBC 12.2 H, RBC 4.38, Hgb 15.0, Hct 44.2, MCV 100.9 H, MCH 34.2 H, MCHC 33.9, RDW 14.0, RDW Differential 51.3 H, Plt Count 222, MPV 10.9, Immature Gran % (Auto) 0.300, Neut % (Auto) 64.4, Lymph % (Auto) 22.4, [place] % (Auto) 9.2, Eos % (Auto) 3.4, Baso % (Auto) 0.3, Absolute Neuts (auto) 7.9 H, Absolute Lymphs (auto) 2.74, Total Counted Not Reportable 02/23/18 22:20: Sodium 137, Potassium 5.1, Chloride 103, Carbon Dioxide 27.0, Anion Gap 7, BUN 16, Creatinine 1.40 H, Estim Creat Clear Calc 31.08, Est GFR (MDRD) Af Amer 49 L, Est GFR (MDRD) Non-Af 41 L, BUN/Creatinine Ratio 11.4, Glucose 233 H, Calcium 10.7 H 02/23/18 22:20: Magnesium 2.2 02/23/18 22:49: Urine Color Yellow, Urine Clarity Clear, Urine pH 7.0, Ur Specific [place] 1.010, Urine Protein Negative, Urine Glucose (UA) 50 H, Urine Ketones Negative, Urine Occult Blood 250 H, Urine Nitrite Negative, Urine Bilirubin Negative, Urine Urobilinogen Normal, Ur Leukocyte Esterase 500 H, Urine RBC 5-10 SEEN, Urine WBC 5-10 SEEN, Ur Squamous Epith Cells 0 SEEN, Urine Bacteria RARE, Urine Mucus 0 SEEN 02/24/18 05:55: WBC 9.3, RBC 3.98 L, Hgb 13.3, Hct 39.8, MCV 100.0 H, MCH 33.4 H , MCHC 33.4, RDW 13.8, RDW Differential 50.1 H, Plt Count 177, MPV 10.6, Immature Gran % (Auto) 0.300, Neut % (Auto) 55.1, Lymph % (Auto) 31.6, [place] % (Auto) 9.5, Eos % (Auto) 3.2, Baso % (Auto) 0.3, Absolute Neuts (auto) 5.1, Absolute Lymphs (auto) 2.94, Total Counted Not Reportable 02/24/18 05:55: Sodium 140, Potassium 4.7, Chloride 106, Carbon Dioxide 27.0, Anion Gap 7, BUN 19 H, Creatinine 1.30 H, Estim Creat Clear Calc 35.16, Est GFR (MDRD) Af Amer 54 L, Est GFR (MDRD) Non-Af 45 L, BUN/Creatinine Ratio 14.6, Glucose 166 H, Calcium 9.9 02/24/18 05:55: Hemoglobin A1c 8.2 H 02/24/18 06:33: POC Glucose 138 H Current Medications Acetaminophen (Tylenol) 650 mg PO Q6H PRN PRN PRN Reason: Non-cardiac pain (mod-severe) Al Hydroxide/Mg Hydroxide (Mylanta Ii) 30 ml PO Q6H PRN PRN PRN Reason: Gastric burning Albuterol Sulfate (Ventolin Aerosols) 2.5 mg INHALATION Q2H PRN PRN PRN Reason: dyspnea, wheezing Albuterol/Ipratropium (Duoneb) 3 ml INHALATION Q6HWA.RT [facility] Last Admin: 02/24/18 07:07 Dose: 3 ml Aspirin (Aspirin, Baby) 81 mg PO DAILY@0800 CANDACE Duloxetine HCl (Cymbalta) 30 mg PO DAILY [facility] Fluticasone Propionate (Flonase Nasal [place]) 2 spray NASAL DAILY PRN PRN Reason: ALLERGIES Heparin Sodium (Porcine) (Heparin Na) 5,000 unit SC Q12 [facility] Hydralazine HCl (Apresoline Iv) 10 mg IV Q4H PRN PRN PRN Reason: SBP > 160 Hydromorphone HCl (Dilaudid Inj) 1 mg IV Q3H PRN PRN PRN Reason: SEVERE PAIN (6-10/10) Last Admin: 02/24/18 06:29 Dose: 1 mg Sodium Chloride () 1,000 mls @ 125 mls/hr IV .Q8H CANDACE Last Admin: 02/24/18 06:39 Dose: 125 mls/hr Lidocaine (Lidoderm Patch) 1 patch TOPICAL DAILY [facility]; Protocol Magnesium Hydroxide (Milk Of Magnesia) 30 ml PO DAILY PRN PRN PRN Reason: Constipation Last Admin: 02/24/18 01:18 Dose: 30 ml Nicotine (Nicoderm Cq (Pbkc)) 21 mg TRANSDERM. DAILY [facility] Last Admin: 02/24/18 01:18 Dose: 21 mg Non-Formulary Medication (Hydrocodone Bitartrate) 40 mg PO DAILY [facility] Ondansetron HCl (Zofran) 4 mg IV Q8H PRN PRN PRN Reason: NAUSEA/VOMITING Last Admin: 02/24/18 06:30 Dose: 4 mg Oxycodone HCl (Oxyir) 5 - 10 mg PO Q4H PRN PRN PRN Reason: SEVERE PAIN (6-10/10) Last Admin: 02/24/18 01:19 Dose: 10 mg Pantoprazole Sodium (Protonix) 40 mg PO QHS [facility] Polyethylene Glycol (Miralax) 17 gm PO DAILY PRN PRN PRN Reason: Constipation Pravastatin Sodium (Pravachol) 80 mg PO QHS [facility] Last Admin: 02/24/18 01:19 Dose: 80 mg Pregabalin (Lyrica) 200 mg PO BID [facility] Last Admin: 02/24/18 01:18 Dose: 200 mg Sodium Chloride () 5 - 15 ml IV UD PRN PRN Reason: SALINE FLUSH Last Admin: 02/24/18 06:30 Dose: 10 ml Temazepam (Restoril) 15 mg PO QHS PRN PRN PRN Reason: insomnia Last Admin: 02/24/18 01:19 Dose: 15 mg Tizanidine HCl (Zanaflex) 4 mg PO TID PRN PRN PRN Reason: SPASMS Last Admin: 02/24/18 01:19 Dose: 4 mg Medical Necessity - Tobacco Use Smoking Status: Current every day smoker Tobacco Use: Cigarettes Assessment/Plan All Active Problems Atypical chest pain (Acute) Nephrolithiasis (Acute) REINALDO (acute kidney injury) (Acute) 57 y/o female with PMHx of Type 2 DM, hypertension, hyperlipidemia, obesity, nicotine dependence comes in with complains of left flank pain and found to have an obstructing proximal left ureteral calculus, 0.6cm. 1. Acute left obstructing proximal ureter nephrolithiasis with hydroureter and hydronephrosis, 0.6 cm, urology consulted, pain controlled, continue gentle IV fluids, intervention planned for 02/25/2018 2. REINALDO, post-renal, related to obstruction from kidney stone, continue gentle IV fluids, continue to trend labs. 3. Hypertension, fairly controlled, on losartan. Losartan on hold on account of AKA, on as needed hydralazine, continue to monitor 4. Type 2 DM, on metformin, metformin on hold, on insulin sliding scale with Accu-Cheks. 5. Hyperlipidemia, on statin 6. Obesity, BMI 3.5, diet and exercises recommended. 7. Nicotine dependence, on replacement 8. DVT prophylaxis with heparin subcu Code Visit Inpatient E&M: 90662 Subs Hosp L2
[2018-02-24] MEDS: Aspirin 81 MG TAB.CHEW PO (08:12)
[2018-02-24] MEDS: DULoxetine Hcl 30 MG Capsule PO (08:12)
[2018-02-24] MEDS: Lidocaine 5% Patch 1 PATCH TOPICAL (08:12)
[2018-02-24] MEDS: Heparin Injection (Vial) 5,000 UNIT/ML VIAL 5000 UNIT SC ×2 (08:13→21:08)
[2018-02-24] MEDS: Polyethylene Glycol 3350 17 GM PACKET PO (08:20)
--- NOTE | 2018-02-24 09:39 | PCM.CONS.U ---
Reason for Consult Date of Consultation: 02/24/18 Reason for Consultation: left ureteral calculi History of Present Illness: The patient is a 57 year old female admitted with a 5-6mm left ureteral calculi. patient stable, I have been asked to see her. Past Medical History Past Medical History (Chronic Problems): Chronic Problems Diabetes mellitus type 2 in obese (Chronic) Hypertension (Chronic) Chronic back pain (Chronic) GERD (gastroesophageal reflux disease) (Chronic) COPD (chronic obstructive pulmonary disease) (Chronic) Obesity (BMI 30.0-34.9) (Chronic) Tobacco use (Chronic) Allergies No Known Allergies Allergy (Verified 02/23/18 22:10) Home Medications: Ambulatory Orders Medication Instructions Recorded Losartan Potassium [Cozaar] 25 mg PO DAILY 06/13/13 Multivitamins,Therapeutic 1 tablet PO DAILY 06/13/13 [Multivitamin] Polyethylene Glycol 3350 [Miralax] 17 gm PO DAILY PRN 06/13/13 Pravastatin [Pravachol] 80 mg PO QHS 06/13/13 Pregabalin [Lyrica] 200 mg PO BID 06/13/13 Tizanidine HCl [Zanaflex] 4 mg PO TID PRN 06/13/13 Zolpidem Tartrate [Ambien] 10 mg PO QHS PRN PRN 06/13/13 Aspirin [Aspirin, Baby] 81 mg PO DINNER 01/16/14 Budesonide/Formoterol 80-4.5 2 puff INHALATION BID 01/16/14 [Symbicort 80-4.5 Mcg Inhaler] Cholecalciferol (VIT D3) [Vitamin 1,000 unit PO DAILY 01/16/14 D3] Meloxicam [Mobic] 7.5 mg PO BID 09/17/15 Dexlansoprazole [Dexilant] 60 mg PO QHS 11/22/16 Hydrocodone Bitartrate [Hysingla 40 mg PO DAILY 11/22/16 ER] Albuterol Sulfate [Ventolin Hfa] 2 puff INHALATION Q4H PRN PRN 06/08/17 Duloxetine HCl 30 mg PO DAILY 06/08/17 Lidocaine [Lidoderm Patch] 1 patch TOPICAL DAILY 06/08/17 Metformin HCl [Glucophage] 500 mg PO BID #30 tab 06/09/17 Hydrocodone/Acetaminophen 1 tab PO BID 02/18/18 [Hydrocodone-Acetamin 10-325 mg] Ondansetron [Zofran Odt] 4 mg PO Q8H PRN PRN #10 tablet 02/18/18 Ascorbic Acid/Ascorbate Sodium 500 mg PO TID 02/24/18 [Vitamin C 500 mg Wafer] Surgical History: noncontributory, - - Appendectomy, cholecystectomy, hysterectomy, right shoulder surgery, lumbar back surgery. 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 Lives: Spouse/ Significant Other Smoking Status: Current every day smoker Tobacco Use: Cigarettes Alcohol: None Drugs: None - *Family History Maternal History Items: Diabetes, Hypertension Paternal History Items: Diabetes, Heart Disease, Hypertension Review of Systems Constitutional: Denies: Chills, Fever, Weight Change HEENT: Denies: Head Aches, Sinus Congestion, Sinus Drainage Cardiovascular: Denies: Chest Pain, Palpitations Respiratory: Denies: Cough, Shortness of breath at rest, Sputum production Gastrointestinal: Reports: Abdominal Pain Genitourinary: Denies: Dysuria Musculoskeletal: Denies: Joint Pain, Joint Tenderness Physical Exam - Physical Exam Vital Signs Temp 98.1 F 02/24/18 08:21 Pulse 74 02/24/18 08:21 Resp 18 02/24/18 08:21 BP 127/70 H 02/24/18 08:21 Pulse Ox 94 02/24/18 08:21 Intake & Output 02/22/18 02/23/18 02/24/18 23:59 23:59 23:59 Intake Total 597 / 597 Output Total 150 / 150 Balance 447 / 447 Weight: 79.4 kg 78.1 kg Intake: IV fluid/meds 597 / 597 Output: Urine 150 / 150 Laboratory Tests Past 24 Hrs 02/23/18 02/23/18 02/23/18 22:20 22:20 22:20 WBC 12.2 H RBC 4.38 Hgb 15.0 Hct 44.2 MCV 100.9 H MCH 34.2 H MCHC 33.9 RDW 14.0 RDW Differential 51.3 H Plt Count 222 MPV 10.9 Immature Gran % (Auto) 0.300 Neut % (Auto) 64.4 Lymph % (Auto) 22.4 [place] % (Auto) 9.2 Eos % (Auto) 3.4 Baso % (Auto) 0.3 Absolute Neuts (auto) 7.9 H Absolute Lymphs (auto) 2.74 Total Counted Not Reportable Sodium 137 Potassium 5.1 Chloride 103 Carbon Dioxide 27.0 Anion Gap 7 BUN 16 Creatinine 1.40 H Estim Creat Clear Calc 31.08 Est GFR (MDRD) Af Amer 49 L Est GFR (MDRD) Non-Af 41 L BUN/Creatinine Ratio 11.4 Glucose 233 H Hemoglobin A1c Calcium 10.7 H Magnesium 2.2 Urine Color Urine Clarity Urine pH Ur Specific [place] Urine Protein Urine Glucose (UA) Urine Ketones Urine Occult Blood Urine Nitrite Urine Bilirubin Urine Urobilinogen Ur Leukocyte Esterase Urine RBC Urine WBC Ur Squamous Epith Cells Urine Bacteria Urine Mucus 02/23/18 02/24/18 02/24/18 22:49 05:55 05:55 WBC 9.3 RBC 3.98 L Hgb 13.3 Hct 39.8 MCV 100.0 H MCH 33.4 H MCHC 33.4 RDW 13.8 RDW Differential 50.1 H Plt Count 177 MPV 10.6 Immature Gran % (Auto) 0.300 Neut % (Auto) 55.1 Lymph % (Auto) 31.6 [place] % (Auto) 9.5 Eos % (Auto) 3.2 Baso % (Auto) 0.3 Absolute Neuts (auto) 5.1 Absolute Lymphs (auto) 2.94 Total Counted Not Reportable Sodium 140 Potassium 4.7 Chloride 106 Carbon Dioxide 27.0 Anion Gap 7 BUN 19 H Creatinine 1.30 H Estim Creat Clear Calc 35.16 Est GFR (MDRD) Af Amer 54 L Est GFR (MDRD) Non-Af 45 L BUN/Creatinine Ratio 14.6 Glucose 166 H Hemoglobin A1c Calcium 9.9 Magnesium Urine Color Yellow Urine Clarity Clear Urine pH 7.0 Ur Specific [place] 1.010 Urine Protein Negative Urine Glucose (UA) 50 H Urine Ketones Negative Urine Occult Blood 250 H Urine Nitrite Negative Urine Bilirubin Negative Urine Urobilinogen Normal Ur Leukocyte Esterase 500 H Urine RBC 5-10 SEEN Urine WBC 5-10 SEEN Ur Squamous Epith Cells 0 SEEN Urine Bacteria RARE Urine Mucus 0 SEEN 02/24/18 05:55 WBC RBC Hgb Hct MCV MCH MCHC RDW RDW Differential Plt Count MPV Immature Gran % (Auto) Neut % (Auto) Lymph % (Auto) [place] % (Auto) Eos % (Auto) Baso % (Auto) Absolute Neuts (auto) Absolute Lymphs (auto) Total Counted Sodium Potassium Chloride Carbon Dioxide Anion Gap BUN Creatinine Estim Creat Clear Calc Est GFR (MDRD) Af Amer Est GFR (MDRD) Non-Af BUN/Creatinine Ratio Glucose Hemoglobin A1c 8.2 H Calcium Magnesium Urine Color Urine Clarity Urine pH Ur Specific [place] Urine Protein Urine Glucose (UA) Urine Ketones Urine Occult Blood Urine Nitrite Urine Bilirubin Urine Urobilinogen Ur Leukocyte Esterase Urine RBC Urine WBC Ur Squamous Epith Cells Urine Bacteria Urine Mucus Assessment/Plan All Active Problems Atypical chest pain (Acute) Nephrolithiasis (Acute) REINALDO (acute kidney injury) (Acute) admitted for left ureteral calculi will plan for intervention on sunday either ureteroscopy and laser or just a stent npo at midnight.
[2018-02-24 11:51] LABS: Bedside Glucose 232 mg/dL (70-110)
[2018-02-24] MEDS: 0.9% Normal Saline 1,000 ML 100 ML IV (15:22)
[2018-02-24] MEDS: Insulin Lispro 100 UNIT/ML INSULN.PEN SQ ×2 (15:22→21:07)
[2018-02-24 15:46] LABS: Bedside Glucose 227 mg/dL (70-110)
[2018-02-24] MEDS: Acetaminophen 325 MG Tablet 650 MG PO (20:30)
--- NOTE | 2018-02-24 20:32 | NURSING ---
Medicated with Tylenol for pain level of 6. Advised pt that she was not due for Dilaudid yet and that she had scheduled Oxy & Lyrica that could be given a little early.
[2018-02-24] MEDS: Pantoprazole Sodium 40 MG Tablet PO (21:07)
[2018-02-24 21:20] LABS: Bedside Glucose 259 mg/dL (70-110)
[2018-02-25] VITALS (14 sets, daily range): BP systolic 99–154; BP diastolic 54–80; PULSE 69–81; RESP 16–20; TEMP 36–37.5; O2SAT 92–99; BMI 32.5
[2018-02-25] MEDS: Bisacodyl 10 MG Suppository RECTAL (00:33)
[2018-02-25] MEDS: Ondansetron 4 MG/2 ML Vial IV ×2 (01:50→10:45)
[2018-02-25] MEDS: 0.9% Normal Saline 1,000 ML 100 ML IV ×3 (01:50→18:03)
[2018-02-25] MEDS: HYDROmorphone 1 MG/ML Syringe IV ×3 (01:50→08:03)
--- NOTE | 2018-02-25 05:00 | EKG12_ITS ---
Test Reason : AM EKG Blood Pressure : / mmHG Vent. Rate : 070 BPM Atrial Rate : 070 BPM P-R Int : 174 ms QRS Dur : 100 ms QT Int : 364 ms P-R-T Axes : 050 -56 -11 degrees QTc Int : 393 ms Normal sinus rhythm Left axis deviation Poor R wave progression Abnormal ECG Confirmed by GUILLERMINA DEUTSCH, PADMINI ([id number]), film editor supervisor JESSY DAWN ([id number] on 02/27/2018 1:56:21 PM Referred By: Sienna Winchester Confirmed By:PADMINI SARMIENTO MD
[2018-02-25 06:24] LABS: Absolute Lymphocyte Count 2.59 X10^3/ul (0.83-4.51); Absolute Neutrophil Count 4.4 X10^3/uL (2.0-7.7); Basophil# 0.02 X10^3/uL; Basophil% 0.2 % (0-1); Eosinophil# 0.24 X10^3/uL; Hematocrit 38.8 % (37-47); Hemoglobin 12.7 g/dl (12.0-15.0); Lymphocyte # 2.59 X10^3/ul (4.0); Lymphocyte % 32.1 % (19-41); Mean Corp Hgb Conc 32.7 g/gl (32-36); Mean Corpuscular Hgb 33.5 pg (27.0-32.0); Mean Corpuscular Volume 102.4 fL (81-99); Mean Platelet Vol. 10.8 fl (6.2-12.0); Monocyte# 0.83 X10^3/uL; Monocyte% 10.3 % (0-10); Neutrophil # 4.38 X10^3/uL (2.7-7.7); Neutrophil % 54.2 % (47-70); Platelet Count 184 K/mm3 (150-450); RBC Distribution Width CV 14.1 % (11.6-14.6); RBC Distribution Width SD 51.7 fl (35.1-43.9); Red Blood Count 3.79 M/mm3 (4.2-5.4); White Blood Count 8.1 K/mm3 (4.4-11.0)
[2018-02-25 06:28] LABS: Anion Gap 5 (5-15); BUN 16 mg/dL (7-18); BUN/Creat Ratio 13.1 RATIO (10-20); Calcium,Total 9.8 mg/dL (8.5-10.1); Chloride 106 mmol/L (98-107); Creatinine, Serum 1.22 mg/dL (0.55-1.02); EST Glomerular Filtration Rate 48 mL/min (>60); Est Glom Filt Rate - Afr Amer 58 mL/min (>60); Estimated Creatinine Clearance 37.47 ml/min; Glucose 191 mg/dL (74-106); Sodium Level 139 mmol/L (136-145)
[2018-02-25 06:42] LABS: POSITIVE COUNT NO; POSITIVE DIFFERENTIAL NO; POSITIVE MORPHOLOGY NO
[2018-02-25 06:51] LABS: Bedside Glucose 202 mg/dL (70-110)
[2018-02-25] MEDS: Insulin Lispro 100 UNIT/ML INSULN.PEN SQ ×4 (07:01→22:58)
[2018-02-25] MEDS: Ipratropium/Albuterol Sulfate 3 ML AMPUL.NEB INHALATION ×2 (07:15→19:32)
[2018-02-25] MEDS: Pregabalin 50 MG Capsule 200 MG PO ×2 (07:48→22:57)
[2018-02-25] MEDS: DULoxetine Hcl 30 MG Capsule PO (07:49)
[2018-02-25] MEDS: Acetaminophen 325 MG Tablet 650 MG PO (07:49)
[2018-02-25] MEDS: Magnesium Hydroxide 30 ML UDC PO (07:50)
[2018-02-25] MEDS: 0.9% NaCl Peripheral Flush Adult/Peds IV ×3 (08:03→10:45)
[2018-02-25 08:51] LABS: Hemoglobin A1c 8.4 % (4.2-6.3)
[2018-02-25] MEDS: Ketorolac 30 MG/ML Syringe IV (09:23)
[2018-02-25 11:06] LABS: Bedside Glucose 183 mg/dL (70-110)
--- NOTE | 2018-02-25 12:41 | PCM.OPRPT ---
Report of Operation Date of Procedure: 02/25/18 Pre-Operative Diagnosis: Left ureteral calculi causing hydronephrosis and obstruction Post-Operative Diagnosis: same Surgery/Procedure Performed:: Cystoscopy, balloon dilation of the ureter, left ureteroscopy laser lithotripsy of the stone no stent Description of Surgical Findings:: 57-year-old female with a history of ureteral calculi presented to the hospital with obstructing large mid left ureteral calculi with a high-grade obstruction. 57-year-old female taken back to the operating room after smooth induction of anesthesia she was placed in dorsolithotomy position the urethra and vaginal area prepped and draped in usual sterile fashion went into the bladder with a 21 [place] rigid cystourethroscope cannulated the left ureteral orifice there was fabienne blood coming out of the orifice I then advanced the balloon dilator over the wire and balloon dilated the distal ureter left the wire in place and then next the wire I went in with a 7.9 [place] rigid offset ureteroscope was able to get up to the ureter quite easily got to the mid ureter and encountered the stone I then used a laser 270 ?m fiber laser laser the stone with settings of 0.6 J and 6 Hz after lasering the stone completely then I basketed some of the fragments and also some of the debris in the ureter until the urine was clear and I worked my way down the ureter stone fragments were passing are quite small side not to leave a stent patient anesthetic is currently being reversed. Patient's bladder was drained. Type of Anesthesia:: General Drains: none - Admit VTE Documentation VTE Present on Admission: No VTE Mechan Device Prophylaxis: SCD's
--- NOTE | 2018-02-25 12:44 | OP.PCM_ITS ---
Report of Operation Date of Procedure: 02/25/18 Pre-Operative Diagnosis: Left ureteral calculi causing hydronephrosis and obstruction Post-Operative Diagnosis: same Surgery/Procedure Performed:: Cystoscopy, balloon dilation of the ureter, left ureteroscopy laser lithotripsy of the stone no stent Description of Surgical Findings:: 57-year-old female with a history of ureteral calculi presented to the hospital with obstructing large mid left ureteral calculi with a high-grade obstruction. 57-year-old female taken back to the operating room after smooth induction of anesthesia she was placed in dorsolithotomy position the urethra and vaginal area prepped and draped in usual sterile fashion went into the bladder with a 21 [place] rigid cystourethroscope cannulated the left ureteral orifice there was fa[place] blood coming out of the orifice I then advanced the balloon dilator over the wire and balloon dilated the distal ureter left the wire in place and then next the wire I went in with a 7.9 [place] rigid offset ureteroscope was able to get up to the ureter quite easily got to the mid ureter and encountered the stone I then used a laser 270 ?m fiber laser laser the stone with settings of 0.6 J and 6 Hz after lasering the stone completely then I basketed some of the fragments and also some of the debris in the ureter until the urine was clear and I worked my way down the ureter stone fragments were passing are quite small side not to leave a stent patient anesthetic is currently being reversed. Patient's bladder was drained. Type of Anesthesia:: General Drains: none - Admit VTE Documentation VTE Present on Admission: No VTE Mechan Device Prophylaxis: SCD's
--- NOTE | 2018-02-25 13:11 | PCM.PN.HOSP ---
Patient Problems: Active and Suspected Problems Nephrolithiasis (Acute) REINALDO (acute kidney injury) (Acute) Subjective: Patient was seen and examined. Complains of severe pain in the left side. Denies any fever or chills or shortness of breath. Going for cystoscopy, uteroscopy and lithotripsy today. 12 point ROS was negative Objective: General: Alert, Oriented x3, Cooperative, No apparent distress, - - obese HEENT: Atraumatic, PERRLA, EOMI, Normocephalic Oral: Moist Mucosa Neck: Supple, No JVD, Negative Carotid Bruits Lungs: Clear to auscultation, Normal air movement Cardiovascular: Regular rate, Regular Rhythm, Normal S1, Normal S2, No murmurs Abdomen: Bowel Sounds Present, Soft, Non-Distended, No Hepato-splenomegaly, Tender - left flank tenderness Extremities: No edema, Capillary Refill Less than 3 Seconds Skin: No rashes, No breakdown Musculoskeletal: No Tenderness to Palpation of Joints or Extremities Lymphatic: No Cervical, Supraclavicular, or Inguinal Adenopathy Neurological: Cranial nerves II-XII grossly intact, Neuro grossly intact Psych/Mental Status: Normal Affect, Appropriate Vitals/I&O's: Vital Signs Temp Pulse Resp BP Pulse Ox 98.0 F 81 18 122/61 H 96 02/25/18 10:47 02/25/18 10:47 02/25/18 10:47 02/25/18 10:47 02/25/18 10:47 Oxygen Delivery Method Room Air Weight: 78.1 kg Body Mass Index (BMI) 32.5 Intake and Output for Last 24 Hours 02/23/18 02/24/18 02/25/18 23:59 23:59 23:59 Intake Total 2757 / 2757 1721 / 1721 Output Total 1900 / 1900 1950 / 1950 Balance 857 / 857 -229 / -229 Laboratory Results 02/24/18 15:15: POC Glucose 227 H 02/24/18 21:06: POC Glucose 259 H 02/25/18 05:35: WBC 8.1, RBC 3.79 L, Hgb 12.7, Hct 38.8, MCV 102.4 H, MCH 33.5 H, MCHC 32.7, RDW 14.1, RDW Differential 51.7 H, Plt Count 184, MPV 10.8, Immature Gran % (Auto) 0.200, Neut % (Auto) 54.2, Lymph % (Auto) 32.1, [place] % (Auto) 10.3 H, Eos % (Auto) 3.0, Baso % (Auto) 0.2, Absolute Neuts (auto) 4.4, Absolute Lymphs (auto) 2.59, Total Counted Not Reportable 02/25/18 05:35: Sodium 139, Potassium 5.0, Chloride 106, Carbon Dioxide 28.0, Anion Gap 5, BUN 16, Creatinine 1.22 H, Estim Creat Clear Calc 37.47, Est GFR (MDRD) Af Amer 58 L, Est GFR (MDRD) Non-Af 48 L, BUN/Creatinine Ratio 13.1, Glucose 191 H, Calcium 9.8 02/25/18 05:35: Hemoglobin A1c 8.4 H 02/25/18 06:40: POC Glucose 202 H 02/25/18 10:56: POC Glucose 183 H Current Medications Acetaminophen (Tylenol) 650 mg PO Q6H PRN PRN PRN Reason: Non-cardiac pain (mod-severe) Last Admin: 02/25/18 07:49 Dose: 650 mg Al Hydroxide/Mg Hydroxide (Mylanta Ii) 30 ml PO Q6H PRN PRN PRN Reason: Gastric burning Albuterol Sulfate (Ventolin Aerosols) 2.5 mg INHALATION Q2H PRN PRN PRN Reason: dyspnea, wheezing Albuterol/Ipratropium (Duoneb) 3 ml INHALATION Q6HWA.RT [facility] Last Admin: 02/25/18 07:15 Dose: 3 ml Aspirin (Aspirin, Baby) 81 mg PO DAILY@0800 [facility] Last Admin: 02/25/18 07:43 Dose: Not Given Dextrose (D50w Syringe) 0 gm IV X1 PRN; Protocol PRN Reason: Hypoglycemia Duloxetine HCl (Cymbalta) 30 mg PO DAILY [facility] Last Admin: 02/25/18 07:49 Dose: 30 mg Fluticasone Propionate (Flonase Nasal [place]) 2 spray NASAL DAILY PRN PRN Reason: ALLERGIES Glucagon () 1 mg IM .X1 PRN PRN Reason: Hypoglycemia Heparin Sodium (Porcine) (Heparin Na) 5,000 unit SC Q12 [facility] Last Admin: 02/25/18 07:43 Dose: Not Given Hydralazine HCl (Apresoline Iv) 10 mg IV Q4H PRN PRN PRN Reason: SBP > 160 Hydromorphone HCl (Dilaudid Inj) 1 mg IV Q3H PRN PRN PRN Reason: SEVERE PAIN (6-10/10) Last Admin: 02/25/18 08:03 Dose: 1 mg Sodium Chloride () 1,000 mls @ 100 mls/hr IV .Q10H [facility] Last Admin: 02/25/18 10:59 Dose: 100 mls/hr Insulin Human Lispro (Humalog Kwikpen (Bkc)) 0 unit SQ ACHS [facility]; Protocol Last Admin: 02/25/18 10:56 Dose: 1 units Lidocaine (Lidoderm Patch) 1 patch TOPICAL DAILY [facility]; Protocol Last Admin: 02/25/18 09:19 Dose: Not Given Magnesium Hydroxide (Milk Of Magnesia) 30 ml PO DAILY PRN PRN PRN Reason: Constipation Last Admin: 02/25/18 07:50 Dose: 30 ml Nicotine (Nicoderm Cq (Pbkc)) 21 mg TRANSDERM. DAILY [facility] Last Admin: 02/25/18 09:16 Dose: Not Given Ondansetron HCl (Zofran) 4 mg IV Q8H PRN PRN PRN Reason: NAUSEA/VOMITING Last Admin: 02/25/18 10:45 Dose: 4 mg Oxycodone HCl (Oxyir) 5 - 10 mg PO Q4H PRN PRN PRN Reason: SEVERE PAIN (6-10/10) Last Admin: 02/24/18 08:12 Dose: 10 mg Oxycodone HCl (Oxycontin) 20 mg PO BID [facility] Last Admin: 02/25/18 07:49 Dose: 20 mg Pantoprazole Sodium (Protonix) 40 mg PO QHS [facility] Last Admin: 02/24/18 21:07 Dose: 40 mg Polyethylene Glycol (Miralax) 17 gm PO DAILY PRN PRN PRN Reason: Constipation Last Admin: 02/24/18 08:20 Dose: 17 gm Pravastatin Sodium (Pravachol) 80 mg PO QHS [facility] Last Admin: 02/24/18 21:07 Dose: 80 mg Pregabalin (Lyrica) 200 mg PO BID [facility] Last Admin: 02/25/18 07:48 Dose: 200 mg Senna/Docusate Sodium (Senokot-S, Judy-Colace) 2 tablet PO DAILY PRN PRN PRN Reason: CONSTIPATION Sodium Chloride () 5 - 15 ml IV UD PRN PRN Reason: SALINE FLUSH Last Admin: 02/25/18 10:45 Dose: 10 ml Temazepam (Restoril) 15 mg PO QHS PRN PRN PRN Reason: insomnia Last Admin: 02/24/18 01:19 Dose: 15 mg Tizanidine HCl (Zanaflex) 4 mg PO TID PRN PRN PRN Reason: SPASMS Last Admin: 02/24/18 01:19 Dose: 4 mg Medical Necessity - Tobacco Use Smoking Status: Current every day smoker Tobacco Use: Cigarettes Assessment/Plan All Active Problems Atypical chest pain (Acute) Nephrolithiasis (Acute) REINALDO (acute kidney injury) (Acute) 57 y/o female with PMHx of Type 2 DM, hypertension, hyperlipidemia, obesity, nicotine dependence comes in with complains of left flank pain and found to have an obstructing proximal left ureteral calculus, 0.6cm. 1. Acute left obstructing proximal ureter nephrolithiasis with hydroureter and hydronephrosis, 0.6 cm, urology consulted, Going for cystoscopy, ureteroscopy and lithotripsy today, continue IV fluids, continue pain control, follow-up with urological recommendation postprocedure 2. REINALDO, post-renal, related to obstruction from kidney stone, resolving, will continue to trend labs 3. Hypertension, controlled, on losartan. Losartan on hold on account of REINALDO, on as needed hydralazine, will resume Losartan after procedure is successful and patient improves. 4. Type 2 DM, on metformin, metformin on hold, Bs are slightly uncontrolled, on insulin sliding scale with Accu-Cheks. 5. Hyperlipidemia, on statin 6. Obesity, BMI 3.5, diet and exercises recommended. 7. Nicotine dependence, on replacement 8. DVT prophylaxis with heparin subcu Code Visit Inpatient E&M: 78866 Subs Hosp L2
--- NOTE | 2018-02-25 13:15 | PN_ITS ---
Patient Problems: Active and Suspected Problems Nephrolithiasis (Acute) REINALDO (acute kidney injury) (Acute) Subjective: Patient was seen and examined. Complains of severe pain in the left side. Denies any fever or chills or shortness of breath. Going for cystoscopy, uteroscopy and lithotripsy today. 12 point ROS was negative Objective: General: Alert, Oriented x3, Cooperative, No apparent distress, - - obese HEENT: Atraumatic, PERRLA, EOMI, Normocephalic Oral: Moist Mucosa Neck: Supple, No JVD, Negative Carotid Bruits Lungs: Clear to auscultation, Normal air movement Cardiovascular: Regular rate, Regular Rhythm, Normal S1, Normal S2, No murmurs Abdomen: Bowel Sounds Present, Soft, Non-Distended, No Hepato-splenomegaly, Tender - left flank tenderness Extremities: No edema, Capillary Refill Less than 3 Seconds Skin: No rashes, No breakdown Musculoskeletal: No Tenderness to Palpation of Joints or Extremities Lymphatic: No Cervical, Supraclavicular, or Inguinal Adenopathy Neurological: Cranial nerves II-XII grossly intact, Neuro grossly intact Psych/Mental Status: Normal Affect, Appropriate Vitals/I&O's: Vital Signs Temp Pulse Resp BP Pulse Ox 98.0 F 81 18 122/61 H 96 02/25/18 10:47 02/25/18 10:47 02/25/18 10:47 02/25/18 10:47 02/25/18 10:47 Oxygen Delivery Method Room Air Weight: 78.1 kg Body Mass Index (BMI) 32.5 Intake and Output for Last 24 Hours 02/23/18 02/24/18 02/25/18 23:59 23:59 23:59 Intake Total 2757 / 2757 1721 / 1721 Output Total 1900 / 1900 1950 / 1950 Balance 857 / 857 -229 / -229 Laboratory Results 02/24/18 15:15: POC Glucose 227 H 02/24/18 21:06: POC Glucose 259 H 02/25/18 05:35: WBC 8.1, RBC 3.79 L, Hgb 12.7, Hct 38.8, MCV 102.4 H, MCH 33.5 H , MCHC 32.7, RDW 14.1, RDW Differential 51.7 H, Plt Count 184, MPV 10.8, Immature Gran % (Auto) 0.200, Neut % (Auto) 54.2, Lymph % (Auto) 32.1, [place] % (Auto) 10.3 H, Eos % (Auto) 3.0, Baso % (Auto) 0.2, Absolute Neuts (auto) 4.4, Absolute Lymphs (auto) 2.59, Total Counted Not Reportable 02/25/18 05:35: Sodium 139, Potassium 5.0, Chloride 106, Carbon Dioxide 28.0, Anion Gap 5, BUN 16, Creatinine 1.22 H, Estim Creat Clear Calc 37.47, Est GFR (MDRD) Af Amer 58 L, Est GFR (MDRD) Non-Af 48 L, BUN/Creatinine Ratio 13.1, Glucose 191 H, Calcium 9.8 02/25/18 05:35: Hemoglobin A1c 8.4 H 02/25/18 06:40: POC Glucose 202 H 02/25/18 10:56: POC Glucose 183 H Current Medications Acetaminophen (Tylenol) 650 mg PO Q6H PRN PRN PRN Reason: Non-cardiac pain (mod-severe) Last Admin: 02/25/18 07:49 Dose: 650 mg Al Hydroxide/Mg Hydroxide (Mylanta Ii) 30 ml PO Q6H PRN PRN PRN Reason: Gastric burning Albuterol Sulfate (Ventolin Aerosols) 2.5 mg INHALATION Q2H PRN PRN PRN Reason: dyspnea, wheezing Albuterol/Ipratropium (Duoneb) 3 ml INHALATION Q6HWA.RT [facility] Last Admin: 02/25/18 07:15 Dose: 3 ml Aspirin (Aspirin, Baby) 81 mg PO DAILY@0800 [facility] Last Admin: 02/25/18 07:43 Dose: Not Given Dextrose (D50w Syringe) 0 gm IV X1 PRN; Protocol PRN Reason: Hypoglycemia Duloxetine HCl (Cymbalta) 30 mg PO DAILY [facility] Last Admin: 02/25/18 07:49 Dose: 30 mg Fluticasone Propionate (Flonase Nasal [place]) 2 spray NASAL DAILY PRN PRN Reason: ALLERGIES Glucagon () 1 mg IM .X1 PRN PRN Reason: Hypoglycemia Heparin Sodium (Porcine) (Heparin Na) 5,000 unit SC Q12 [facility] Last Admin: 02/25/18 07:43 Dose: Not Given Hydralazine HCl (Apresoline Iv) 10 mg IV Q4H PRN PRN PRN Reason: SBP > 160 Hydromorphone HCl (Dilaudid Inj) 1 mg IV Q3H PRN PRN PRN Reason: SEVERE PAIN (6-10/10) Last Admin: 02/25/18 08:03 Dose: 1 mg Sodium Chloride () 1,000 mls @ 100 mls/hr IV .Q10H [facility] Last Admin: 02/25/18 10:59 Dose: 100 mls/hr Insulin Human Lispro (Humalog Kwikpen (Bkc)) 0 unit SQ ACHS [facility]; Protocol Last Admin: 02/25/18 10:56 Dose: 1 units Lidocaine (Lidoderm Patch) 1 patch TOPICAL DAILY [facility]; Protocol Last Admin: 02/25/18 09:19 Dose: Not Given Magnesium Hydroxide (Milk Of Magnesia) 30 ml PO DAILY PRN PRN PRN Reason: Constipation Last Admin: 02/25/18 07:50 Dose: 30 ml Nicotine (Nicoderm Cq (Pbkc)) 21 mg TRANSDERM. DAILY [facility] Last Admin: 02/25/18 09:16 Dose: Not Given Ondansetron HCl (Zofran) 4 mg IV Q8H PRN PRN PRN Reason: NAUSEA/VOMITING Last Admin: 02/25/18 10:45 Dose: 4 mg Oxycodone HCl (Oxyir) 5 - 10 mg PO Q4H PRN PRN PRN Reason: SEVERE PAIN (6-10/10) Last Admin: 02/24/18 08:12 Dose: 10 mg Oxycodone HCl (Oxycontin) 20 mg PO BID [facility] Last Admin: 02/25/18 07:49 Dose: 20 mg Pantoprazole Sodium (Protonix) 40 mg PO QHS [facility] Last Admin: 02/24/18 21:07 Dose: 40 mg Polyethylene Glycol (Miralax) 17 gm PO DAILY PRN PRN PRN Reason: Constipation Last Admin: 02/24/18 08:20 Dose: 17 gm Pravastatin Sodium (Pravachol) 80 mg PO QHS [facility] Last Admin: 02/24/18 21:07 Dose: 80 mg Pregabalin (Lyrica) 200 mg PO BID [facility] Last Admin: 02/25/18 07:48 Dose: 200 mg Senna/Docusate Sodium (Senokot-S, Judy-Colace) 2 tablet PO DAILY PRN PRN PRN Reason: CONSTIPATION Sodium Chloride () 5 - 15 ml IV UD PRN PRN Reason: SALINE FLUSH Last Admin: 02/25/18 10:45 Dose: 10 ml Temazepam (Restoril) 15 mg PO QHS PRN PRN PRN Reason: insomnia Last Admin: 02/24/18 01:19 Dose: 15 mg Tizanidine HCl (Zanaflex) 4 mg PO TID PRN PRN PRN Reason: SPASMS Last Admin: 02/24/18 01:19 Dose: 4 mg Medical Necessity - Tobacco Use Smoking Status: Current every day smoker Tobacco Use: Cigarettes Assessment/Plan All Active Problems Atypical chest pain (Acute) Nephrolithiasis (Acute) REINALDO (acute kidney injury) (Acute) 57 y/o female with PMHx of Type 2 DM, hypertension, hyperlipidemia, obesity, nicotine dependence comes in with complains of left flank pain and found to have an obstructing proximal left ureteral calculus, 0.6cm. 1. Acute left obstructing proximal ureter nephrolithiasis with hydroureter and hydronephrosis, 0.6 cm, urology consulted, Going for cystoscopy, ureteroscopy and lithotripsy today, continue IV fluids, continue pain control, follow-up with urological recommendation postprocedure 2. REINALDO, post-renal, related to obstruction from kidney stone, resolving, will continue to trend labs 3. Hypertension, controlled, on losartan. Losartan on hold on account of REINALDO, on as needed hydralazine, will resume Losartan after procedure is successful and patient improves. 4. Type 2 DM, on metformin, metformin on hold, Bs are slightly uncontrolled, on insulin sliding scale with Accu-Cheks. 5. Hyperlipidemia, on statin 6. Obesity, BMI 3.5, diet and exercises recommended. 7. Nicotine dependence, on replacement 8. DVT prophylaxis with heparin subcu Code Visit Inpatient E&M: 98148 Subs Hosp L2
[2018-02-25 13:46] LABS: Bedside Glucose 148 mg/dL (70-110)
[2018-02-25] MEDS: Senna/Docusate Sodium 1 Tablet 2 TABLET PO (14:59)
[2018-02-25] MEDS: Polyethylene Glycol 3350 17 GM PACKET PO (14:59)
[2018-02-25] MEDS: Phenazopyridine 95 MG Tablet PO (16:39)
[2018-02-25 16:41] LABS: Bedside Glucose 204 mg/dL (70-110)
[2018-02-25] MEDS: Temazepam 15 MG Capsule PO (22:57)
[2018-02-25] MEDS: Pravastatin 80 MG Tablet PO (22:58)
[2018-02-25] MEDS: Pantoprazole Sodium 40 MG Tablet PO (22:58)
[2018-02-25] MEDS: Heparin Injection (Vial) 5,000 UNIT/ML VIAL 5000 UNIT SC (22:58)
[2018-02-25 23:11] LABS: Bedside Glucose 246 mg/dL (70-110)
[2018-02-26] MEDS: 0.9% Normal Saline 1,000 ML 100 ML IV ×2 (02:34→11:59)
[2018-02-26] MEDS: Phenazopyridine 95 MG Tablet PO (02:34)
[2018-02-26] MEDS: Bisacodyl 10 MG Suppository RECTAL (02:34)
[2018-02-26] MEDS: Acetaminophen 325 MG Tablet 650 MG PO (02:41)
[2018-02-26 02:48] VITALS: BP 122/62; PULSE 85; RESP 16; TEMP 38.1; O2SAT 94
[2018-02-26] MEDS: Insulin Lispro 100 UNIT/ML INSULN.PEN SQ ×2 (06:45→11:49)
[2018-02-26] MEDS: Magnesium Hydroxide 30 ML UDC PO (06:46)
[2018-02-26 06:48] VITALS: TEMP 37.2
[2018-02-26 06:55] LABS: Bedside Glucose 155 mg/dL (70-110)
[2018-02-26 07:36] VITALS: BP 114/63; PULSE 69; PULSE 70; RESP 18; TEMP 36.8; O2SAT 95
[2018-02-26] MEDS: Aspirin 81 MG TAB.CHEW PO (07:46)
--- NOTE | 2018-02-26 08:43 | PCM.DC ---
- Discharge Diagnoses Current Active Problems: Current Active and Chronic Problems Nephrolithiasis (Acute) REINALDO (acute kidney injury) (Acute) Obesity (BMI 30.0-34.9) (Chronic) Tobacco use (Chronic) Reason(s) for Visit for Discharge Instructions: Abdominal pain You will use the following diet at home:: Calorie/Carbohydrate Controlled (specify 1200, 1400, etc), Cardiac Your food should be the consistency of: Regular Your liquids should be the consistency of: Regular/Thin Discharge Activity: Return to Normal Activity Additional Instructions: Complete your antibiotics as prescribed. Continue to hydrate yourself. Follow-up with [facility] primary doctor within a week for repeat blood work. Follow-up with urologist as planned. Allergies/Adverse Reactions: Allergies No Known Allergies Allergy (Verified 02/23/18 22:10) Medications to take at Discharge Losartan Potassium [Cozaar] 25 mg PO DAILY 06/13/13 Multivitamins,Therapeutic [Multivitamin] 1 tablet PO DAILY 06/13/13 Polyethylene Glycol 3350 [Miralax] 17 gm PO DAILY PRN 06/13/13 Pravastatin [Pravachol] 80 mg PO QHS 06/13/13 Pregabalin [Lyrica] 200 mg PO BID 06/13/13 Tizanidine HCl [Zanaflex] 4 mg PO TID PRN 06/13/13 Zolpidem Tartrate [Ambien] 10 mg PO QHS PRN PRN 06/13/13 Aspirin [Aspirin, Baby] 81 mg PO DINNER 01/16/14 Budesonide/Formoterol 80-4.5 [Symbicort 80-4.5 Mcg Inhaler] 2 puff INHALATION BID 01/16/14 Cholecalciferol (VIT D3) [Vitamin D3] 1,000 unit PO DAILY 01/16/14 Dexlansoprazole [Dexilant] 60 mg PO QHS 11/22/16 Hydrocodone Bitartrate [Hysingla ER] 40 mg PO DAILY 11/22/16 Albuterol Sulfate [Ventolin Hfa] 2 puff INHALATION Q4H PRN PRN 06/08/17 Duloxetine HCl 30 mg PO DAILY 06/08/17 Lidocaine [Lidoderm Patch] 1 patch TOPICAL DAILY 06/08/17 Metformin HCl [Glucophage] 500 mg PO BID #30 tab 06/09/17 Hydrocodone/Acetaminophen [Hydrocodone-Acetamin 10-325 mg] 1 tab PO BID 02/18/18 Ondansetron [Zofran Odt] 4 mg PO Q8H PRN PRN #10 tablet 02/18/18 Ascorbic Acid/Ascorbate Sodium [Vitamin C 500 mg Wafer] 500 mg PO TID 02/24/18 Acetaminophen [Tylenol Tablet] 650 mg PO Q6H PRN PRN tablet 02/26/18 Cefdinir [Omnicef [equiv]] 300 mg PO Q12H #14 capsule 02/26/18 Nicotine [Nicoderm Cq] 21 mg TRANSDERM. DAILY #30 patch 02/26/18 Senna/Docusate Sodium [Senokot-S] 2 tablet PO DAILY PRN PRN #60 tablet 02/26/18 The following prescriptions were given: Cefdinir [Omnicef [equiv]] 300 mg PO Q12H #14 capsule Nicotine [Nicoderm Cq] 21 mg TRANSDERM. DAILY #30 patch Senna/Docusate Sodium [Senokot-S] 2 tablet PO DAILY PRN PRN #60 tablet PRN Reason: CONSTIPATION Primary Care Physician: Darlene Plascencia SOCIAL MEDIA STRATEGIST-C [Primary Care Provider] - Please follow up with your Primary Care Physician in: within 2 weeks Test Results: Test results from this visit will be discussed in further detail at your follow-up appointment, if applicable. Please Follow Up With: Sandeep Mcmullen MD When: within 2 weeks or as scheduled Proposed Discharge Date: 02/26/18
--- NOTE | 2018-02-26 08:47 | DCINST_ITS ---
- Discharge Diagnoses Current Active Problems: Current Active and Chronic Problems Nephrolithiasis (Acute) REINALDO (acute kidney injury) (Acute) Obesity (BMI 30.0-34.9) (Chronic) Tobacco use (Chronic) Reason(s) for Visit for Discharge Instructions: Abdominal pain You will use the following diet at home:: Calorie/Carbohydrate Controlled (specify 1200, 1400, etc), Cardiac Your food should be the consistency of: Regular Your liquids should be the consistency of: Regular/Thin Discharge Activity: Return to Normal Activity Additional Instructions: Complete your antibiotics as prescribed. Continue to hydrate yourself. Follow-up with [facility] primary doctor within a week for repeat blood work. Follow-up with urologist as planned. Allergies/Adverse Reactions: Allergies No Known Allergies Allergy (Verified 02/23/18 22:10) Medications to take at Discharge Losartan Potassium [Cozaar] 25 mg PO DAILY 06/13/13 Multivitamins,Therapeutic [Multivitamin] 1 tablet PO DAILY 06/13/13 Polyethylene Glycol 3350 [Miralax] 17 gm PO DAILY PRN 06/13/13 Pravastatin [Pravachol] 80 mg PO QHS 06/13/13 Pregabalin [Lyrica] 200 mg PO BID 06/13/13 Tizanidine HCl [Zanaflex] 4 mg PO TID PRN 06/13/13 Zolpidem Tartrate [Ambien] 10 mg PO QHS PRN PRN 06/13/13 Aspirin [Aspirin, Baby] 81 mg PO DINNER 01/16/14 Budesonide/Formoterol 80-4.5 [Symbicort 80-4.5 Mcg Inhaler] 2 puff INHALATION BID 01/16/14 Cholecalciferol (VIT D3) [Vitamin D3] 1,000 unit PO DAILY 01/16/14 Dexlansoprazole [Dexilant] 60 mg PO QHS 11/22/16 Hydrocodone Bitartrate [Hysingla ER] 40 mg PO DAILY 11/22/16 Albuterol Sulfate [Ventolin Hfa] 2 puff INHALATION Q4H PRN PRN 06/08/17 Duloxetine HCl 30 mg PO DAILY 06/08/17 Lidocaine [Lidoderm Patch] 1 patch TOPICAL DAILY 06/08/17 Metformin HCl [Glucophage] 500 mg PO BID #30 tab 06/09/17 Hydrocodone/Acetaminophen [Hydrocodone-Acetamin 10-325 mg] 1 tab PO BID 02/18/18 Ondansetron [Zofran Odt] 4 mg PO Q8H PRN PRN #10 tablet 02/18/18 Ascorbic Acid/Ascorbate Sodium [Vitamin C 500 mg Wafer] 500 mg PO TID 02/24/18 Acetaminophen [Tylenol Tablet] 650 mg PO Q6H PRN PRN tablet 02/26/18 Cefdinir [Omnicef [equiv]] 300 mg PO Q12H #14 capsule 02/26/18 Nicotine [Nicoderm Cq] 21 mg TRANSDERM. DAILY #30 patch 02/26/18 Senna/Docusate Sodium [Senokot-S] 2 tablet PO DAILY PRN PRN #60 tablet 02/26/18 The following prescriptions were given: Cefdinir [Omnicef [equiv]] 300 mg PO Q12H #14 capsule Nicotine [Nicoderm Cq] 21 mg TRANSDERM. DAILY #30 patch Senna/Docusate Sodium [Senokot-S] 2 tablet PO DAILY PRN PRN #60 tablet PRN Reason: CONSTIPATION Primary Care Physician: Darlene Plascencia OPERATIONS SUPERVISOR 2ND SHIFT-C [Primary Care Provider] - Please follow up with your Primary Care Physician in: within 2 weeks Test Results: Test results from this visit will be discussed in further detail at your follow- up appointment, if applicable. Please Follow Up With: Sandeep Mcmullen MD When: within 2 weeks or as scheduled Proposed Discharge Date: 02/26/18
--- NOTE | 2018-02-26 10:56 | PCM.DC.SUM ---
Discharge Date and Diagnosis Date of Admission: 02/23/18 Date of Discharge: 02/26/18 - Primary Discharge Diagnosis Active and Suspected Problems Nephrolithiasis (Acute) REINALDO (acute kidney injury) (Acute) Constipation Suspected complicated UTI - Secondary Discharge Diagnosis Chronic Problems Diabetes mellitus type 2 in obese (Chronic) Hypertension (Chronic) Chronic back pain (Chronic) GERD (gastroesophageal reflux disease) (Chronic) COPD (chronic obstructive pulmonary disease) (Chronic) Obesity (BMI 30.0-34.9) (Chronic) Tobacco use (Chronic) Hospital Course and Treatment Imaging Results: Clinical Impression(s) from Imaging Studies Abdomen/Pelvis CT 02/23/18 22:20 IMPRESSION: Mild to moderate left hydronephrosis and hydroureter with the previously seen proximally left ureteral calculus currently located in the left mid pelvis of 0.6cm. Stable bilateral nonobstructing small renal calculi, hepatomegaly, hepatic steatosis, cholecystectomy, hysterectomy, pancreas involution, atherosclerosis, osseous changes as above. Electronically Signed: Yovana Greenwood MD at 23:25 EST , Service support , Urology - Dr. Mcmullen Operations: None Procedures: - - Cystoscopy, ureteroscopy, lithotripsy Summary of Care Provided: 57 y/o female with PMHx of Type 2 DM, hypertension, hyperlipidemia, obesity, nicotine dependence comes in with complains of left flank pain and found to have an obstructing proximal left ureteral calculus, 0.6cm. 1. Acute left obstructing proximal ureter nephrolithiasis with hydroureter and hydronephrosis, 0.6 cm, s/p cystoscopy, ureteroscopy and lithotripsy, will follow up with urology in the outpatient. 2. Episode of fever, recent urological instrumentation, will treat as suspected complicated UTI with IV cefdinir for 7 days 3. REINALDO, post-renal, related to obstruction from kidney stone, improved 4. Hypertension, controlled, on losartan. Losartan was held on account of REINALDO, resumed at discharge. 5. Constipation, likely opioid-induced, on bowel regimen, resolved Subjective: Patient was seen and examined. Complained of constipation for 11 days. Previous stool regimen have not helped. Had a cystoscopy/ureteroscopy done yesterday. No more abdominal pain; just abdominal discomfort from constipation. ROS was negative. Objective: Physical exam: General: Alert, Oriented x3, Cooperative, No apparent distress, - - obese HEENT: Atraumatic, PERRLA, EOMI, Normocephalic Oral: Moist Mucosa Neck: Supple, No JVD, Negative Carotid Bruits Lungs: Clear to auscultation, Normal air movement Cardiovascular: Regular rate, Regular Rhythm, Normal S1, Normal S2, No murmurs Abdomen: Bowel Sounds Present, Soft, Non-Distended, No Hepato-splenomegaly, Tender - left flank tenderness Extremities: No edema, Capillary Refill Less than 3 Seconds Skin: No rashes, No breakdown Musculoskeletal: No Tenderness to Palpation of Joints or Extremities Lymphatic: No Cervical, Supraclavicular, or Inguinal Adenopathy Neurological: Cranial nerves II-XII grossly intact, Neuro grossly intact Psych/Mental Status: Normal Affect, Appropriate - Physical Exam Vital Signs Temp Pulse Resp BP Pulse Ox 98.3 F 70 18 114/63 95 02/26/18 07:36 02/26/18 07:36 02/26/18 07:36 02/26/18 07:36 02/26/18 07:36 Oxygen Flow Rate (L/min) 2 Oxygen Delivery Method Room Air Weight: 78.1 kg Body Mass Index (BMI) 32.5 Finger Stick Blood Glucose 148 Intake and Output for Last 24 Hours 02/24/18 02/25/18 02/26/18 23:59 23:59 23:59 Intake Total 2757 / 2757 2871 / 2871 2565 / 2565 Output Total 1900 / 1900 2200 / 2200 1400 / 1400 Balance 857 / 857 671 / 671 1165 / 1165 POC Glucose 02/26/18 02/25/18 02/25/18 06:42 22:56 16:32 POC Glucose 155 H 246 H 204 H 02/25/18 02/25/18 13:42 10:56 POC Glucose 148 H 183 H Discharge Diet: Low fat/ Low Cholesterol, 2000 mg Sodium Diet, Carb Control Diet Discharge Activity: Return to Normal Activity Home Medications: Medications to take at Discharge Losartan Potassium [Cozaar] 25 mg PO DAILY 06/13/13 Multivitamins,Therapeutic [Multivitamin] 1 tablet PO DAILY 06/13/13 Polyethylene Glycol 3350 [Miralax] 17 gm PO DAILY PRN 06/13/13 Pravastatin [Pravachol] 80 mg PO QHS 06/13/13 Pregabalin [Lyrica] 200 mg PO BID 06/13/13 Tizanidine HCl [Zanaflex] 4 mg PO TID PRN 06/13/13 Zolpidem Tartrate [Ambien] 10 mg PO QHS PRN PRN 06/13/13 Aspirin [Aspirin, Baby] 81 mg PO DINNER 01/16/14 Budesonide/Formoterol 80-4.5 [Symbicort 80-4.5 Mcg Inhaler] 2 puff INHALATION BID 01/16/14 Cholecalciferol (VIT D3) [Vitamin D3] 1,000 unit PO DAILY 01/16/14 Dexlansoprazole [Dexilant] 60 mg PO QHS 11/22/16 Hydrocodone Bitartrate [Hysingla ER] 40 mg PO DAILY 11/22/16 Albuterol Sulfate [Ventolin Hfa] 2 puff INHALATION Q4H PRN PRN 06/08/17 Duloxetine HCl 30 mg PO DAILY 06/08/17 Lidocaine [Lidoderm Patch] 1 patch TOPICAL DAILY 06/08/17 Metformin HCl [Glucophage] 500 mg PO BID #30 tab 06/09/17 Hydrocodone/Acetaminophen [Hydrocodone-Acetamin 10-325 mg] 1 tab PO BID 02/18/18 Ondansetron [Zofran Odt] 4 mg PO Q8H PRN PRN #10 tablet 02/18/18 Ascorbic Acid/Ascorbate Sodium [Vitamin C 500 mg Wafer] 500 mg PO TID 02/24/18 Acetaminophen [Tylenol Tablet] 650 mg PO Q6H PRN PRN tablet 02/26/18 Cefdinir [Omnicef [equiv]] 300 mg PO Q12H #14 capsule 02/26/18 Nicotine [Nicoderm Cq] 21 mg TRANSDERM. DAILY #30 patch 02/26/18 Senna/Docusate Sodium [Senokot-S] 2 tablet PO DAILY PRN PRN #60 tablet 02/26/18 Following Prescrptions Were Given to Patient: Cefdinir [Omnicef [equiv]] 300 mg PO Q12H #14 capsule Nicotine [Nicoderm Cq] 21 mg TRANSDERM. DAILY #30 patch Senna/Docusate Sodium [Senokot-S] 2 tablet PO DAILY PRN PRN #60 tablet PRN Reason: CONSTIPATION Primary Care Physician: Darlene Plascencia NP-C [Primary Care Provider] - Please follow up with your Primary Care Physician in: within 2 weeks Please Follow Up With: Sandeep Mcmullen MD When: within 2 weeks or as scheduled Disposition: Home Minutes spent on discharge:: 45 Patient Condition:: Stable Medical Necessity - Tobacco Use Smoking Status: Current every day smoker Tobacco Use: Cigarettes Meaningful Use Info Meaningful Use Diagnoses (Choose all that apply): None applicable Code Visit Inpatient E&M: 07429 Disch Hosp
[2018-02-26] MEDS: Pregabalin 50 MG Capsule 200 MG PO (11:46)
[2018-02-26] MEDS: Heparin Injection (Vial) 5,000 UNIT/ML VIAL 5000 UNIT SC (11:48)
[2018-02-26] MEDS: DULoxetine Hcl 30 MG Capsule PO (11:48)
[2018-02-26] MEDS: Lidocaine 5% Patch 1 PATCH TOPICAL (11:48)
[2018-02-26 11:56] LABS: Bedside Glucose 190 mg/dL (70-110)
[2018-02-26 12:25] LABS: Anion Gap 5 (5-15); BUN 15 mg/dL (7-18); BUN/Creat Ratio 11.1 RATIO (10-20); Calcium,Total 9.5 mg/dL (8.5-10.1); Chloride 108 mmol/L (98-107); Creatinine, Serum 1.35 mg/dL (0.55-1.02); EST Glomerular Filtration Rate 43 mL/min (>60); Est Glom Filt Rate - Afr Amer 52 mL/min (>60); Estimated Creatinine Clearance 33.86 ml/min; Glucose 174 mg/dL (74-106); Potassium 4.9 mmol/L (3.5-5.1); Sodium Level 141 mmol/L (136-145)
[2018-02-26 13:30] VITALS: BP 148/72; PULSE 82; RESP 18; TEMP 36.5; O2SAT 97
--- NOTE | 2018-02-26 13:36 | CASEMGMT ---
RN CM Assessment. Intro role of CM to patient who states she lives independently with her . No DME use @ this time. Pt drives or has family drive her. No aides/HHC at home and pt declined any needs @ this time. PCP: Darlene Plascencia ADVANCED MANUFACTURING ENGINEER [facility]: [facility] Prescription Coverage: yes through insurance [place] PLAN: Home on dc. No needs identified @ this time. GA Gant BSN ACM
[2018-02-26 13:54] VITALS: PULSE 80; RESP 16; O2SAT 97
[2018-02-26] MEDS: Ipratropium/Albuterol Sulfate 3 ML AMPUL.NEB INHALATION (13:54)
--- NOTE | 2018-03-01 13:36 | CASEMGMT ---
GA SORENSON Discharge Follow-Up Phone Call. ZECHARIAH: Shola Strata: 4 Discharge Date: 02-26-18 Adm Dx: Nephrolithiasis. Call placed to pt to inquire about how she has been feeling since she left the hospital. Pt states, I'm feeling a little bit better today. Pt states she was very tired yesterday but today is getting better. Pt states she was able to slat pickler her new prescriptions except for the Nicotine patches. Pt states they were not covered under her insurance and that they were too expensivet to pay for [id number]. Pt states she is getting new insurance next month and is going to see if it is covered under her new insurance. Pt states she is aware of both of the appts coming up with Darlene Plascencia and with Dr Mcmullen. She states she has no questions about the discharge instructions or medications. GA SORENSON thanked pt for choosing [facility]. Juan CAMERON RN, CM
--- OUTSIDE RECORDS SUMMARY | 2018-04-29 10:53 | XMS RPT_ITS ---
:1960 Author Organization OHIP Support Name Relationship Address Phone COVER JR CARLITA Unavailable [address] + [place] [address] D Unavailable Unavailable Unavailable JUSTICE, GEO Unavailable [address] + [place] [address] COVER JR, CARLITA Unavailable [address] + [place] [address] D Unavailable Unavailable Unavailable JUSTICE, GEO Unavailable [address] + [place] [address] COVER JR, CARLITA Unavailable [address] + [place] [address] D Unavailable Unavailable Unavailable JUSTICE, GEO Unavailable [address] + [place] [address] COVER JR, CARLITA Unavailable [address] + [place] [address] D Unavailable Unavailable Unavailable JUSTICE, GEO Unavailable [address] + [place] [address] COVER JR, CARLITA Unavailable [address] + [place] [address] D Unavailable Unavailable Unavailable JUSTICE, GEO Unavailable [address] + [place] [address] COVER JR, CARLITA Unavailable [address] + [place] [address] D Unavailable Unavailable Unavailable JUSTICE, GEO Unavailable [address] + [place] [address] COVER JR, CARLITA Unavailable [address] + [place] [address] D Unavailable Unavailable Unavailable JUSTICE, GEO Unavailable [address] + [place] [address] JUSTICE, MAGGIE Unavailable COVER,SENIA + COVER CARLITA FITZPATRICK Unavailable [address] + [place] [address] D Unavailable Unavailable Unavailable KANG COOKE Unavailable [address] + [place] [address] JUSTICEKANGEN Unavailable COVER,SENIA + JUSTICEKANGEN Unavailable COVER,SENIA + JUSTICEKANGEN Unavailable COVER,SENIA + JUSTICEKANGEN Unavailable [address] + [place] [address] JUSTICEKANGEN Unavailable [address] + [place] [address] D Unavailable Unavailable Unavailable JUSTICE, GEO Unavailable [address] + [place] [address] D Unavailable Unavailable Unavailable JUSTICE, GEO Unavailable [address] + [place] [address] D Unavailable Unavailable Unavailable JUSTICE, GEO Unavailable [address] + [place] [address] D Unavailable Unavailable Unavailable JUSTICE, GEO Unavailable [address] + [place] [address] D Unavailable Unavailable Unavailable JUSTICE, GEO Unavailable [address] + [place] [address] KANG COOKEN Unavailable COVER,SENIA + KANG COOKEN Unavailable COVER,SENIA + Care Team Providers Name Role Phone Glenn Vogel Primary Care Unavailable Lars Polk Attending Unavailable Glenn Vogel Attending Unavailable Glenn Vogel Referring Unavailable Glenn Vogel Primary Care Unavailable Glenn Vogel Primary Care Unavailable White, Sienna Admitting Unavailable White, Sienna Referring Unavailable Sandeep Mcmullen Consulting Unavailable Paintsil, Modale Attending Unavailable White, Sienna Admitting Unavailable White, Sienna Attending Unavailable White, Sienna Referring Unavailable Swimelissat Glenn HAND Primary Care Unavailable White, Sienna Consulting Unavailable White, Sienna Admitting Unavailable Paintsil, Modale Attending Unavailable White, Sienna Referring Unavailable Thais HAND Glenn Primary Care Unavailable Sandeep Mcmullen Consulting Unavailable Paintsil, Modale Consulting Unavailable White, Sienna Admitting Unavailable Paintsil, Modale Attending Unavailable White, Sienna Referring Unavailable Swihart HEAD WRESTLING COACH, Glenn Primary Care Unavailable Benedict, Aiden Consulting Unavailable Paintsil, Modale Consulting Unavailable White, Sienna Admitting Unavailable Paintsil, Modale Attending Unavailable White, Sienna Referring Unavailable Swihart HEAD WRESTLING COACH, Glenn Primary Care Unavailable Benedict, Aiden Consulting Unavailable Paintsil, Modale Consulting Unavailable Swihart HEAD WRESTLING COACH, Glenn Primary Care Unavailable Nathanael, Dilshad Admitting Unavailable Paintsil, Modale Attending Unavailable Nathanael, Dilshad Admitting Unavailable Nathanael, Dilshad Attending Unavailable Swihart HEAD WRESTLING COACH, Glenn Primary Care Unavailable Nathanael, Dilshad Consulting Unavailable Nathanael, Dilshad Admitting Unavailable Shiraz Schneider Attending Unavailable Swihart HEAD WRESTLING COACH, Glenn Primary Care Unavailable Paintsil, Modale Consulting Unavailable Gustavo, Rafy Attending Unavailable Gustavo, Rafy Attending Unavailable Nathanael, Dilshad Referring Unavailable Swihart HEAD WRESTLING COACH, Glenn Primary Care Unavailable Iris Arias Attending Unavailable REKHA CHAMBERS Attending Unavailable SWIHART HANDS HANGER, GLENN L Primary Care Unavailable Lina Lam Attending Unavailable Lina Lam Attending Unavailable FautaKarena sampson Attending Unavailable Swierz, Adeline Primary Care Unavailable Karena Laurent Attending Unavailable No Family Physician given Primary Care Unavailable Karena Laurent Attending Unavailable Swihart, Glenn HEAD WRESTLING COACH Primary Care Unavailable Meet Lara Attending Unavailable No Family Physician given Primary Care Unavailable PROBLEMS PROBLEMS DATE TYPE CONDITION / CODE ATTENDING STATUS SOURCE Unknown E11.9 - Type 2 Swihart HEAD WRESTLING COACH, Active [place] 9 diabetes mellitus [facility] without complications Hospital / E11.9(ICD-10) Repository Unknown R10.9 - Unspecified Felicitas, Active [place] 9 abdominal pain / [facility] R10.9(ICD-10) Hospital Repository Unknown R07.9 - Chest pain, Gustavo, Rafy Active [place] 8 unspecified / Community R07.9(ICD-10) Hospital Repository Unknown R07.89 - Other chest Gustavo, Rafy Active [place] 8 pain / R07.89(ICD-10) [facility] Repository Unknown R94.31 - Abnormal Gustavo, Rafy Active [place] 8 electrocardiogram Community [ECG] [EKG] / Hospital R94.31(ICD-10) Repository Unknown I44.4 - Left anterior Gustavo, [place] Active [place] 8 fascicular block / Community I44.4(ICD-10) Hospital Repository Admitting Unknown / UNK(Unknown) [facility]ressa [facility] 8 diagnosis [facility] Repository PROCEDURES PROCEDURES No Procedure Records FoundRESULTS RESULTS EMERGENCY DEPARTMENT Observed: 02/28/2018 Status: F Source: [place] SUMMARY 4:12 PM [facility] [facility] Medical Records Department [address] [address] Emergency Department Summary 02/23/18 2252 MR#: [id number] Acct: [id number] Name: JACOBY COOK Rep #: [id number] : 1960 57 From: Amy Mcneil DO PCP: Glenn Vogel Status: DIS IN - ER Visit Summary Date of Service: 02/23/18 Chief Complaint: [Flank pain] History of Present Illness: The patient is a 57 F [presents to the emergency department with left-sided flank pain that started about a week ago. Patient was seen in the emergency department 5 days ago diagnosed with a ureteral stone on the left measuring approximately 6 x 4.5 mm. Patient states that she had been doing relatively well although she is had some hematuria intermittently. Pain became more severe today. Patient also states she has not had a good bowel movement in over 8 days. Patient's been using laxatives at home. She denies any fevers. Patient had some nausea.] Physical Examination: [HEENT-PERRLA, EOMI. Cranial nerves II through XII grossly intact. TMs clear. Mucous membranes moist. No adenopathy. Cardiovascular-regular rate and rhythm without murmur or ectopy Lungs-clear to auscultation, chest wall stable without crepitus or subcu emphysema Abdomen-normoactive bowel sounds, soft. Patient does have some tenderness palpation over left lower quadrant with some guarding. Patient has CVA tenderness on the left. There is no rebound, rigidity, or perineal signs. Extremities-intact 4, normal range of motion, normal pulses, atraumatic] Test Results: [CBC with differential showed a white count 12.2, hemoglobin 15, hematocrit 44, platelets 222. Chemistries unremarkable. BUN was 16 and creatinine 1.4. Glucose was 233. Urinalysis showed 500 leukocyte esterase, 5-10 WBCs, 5-10 RBCs, rare bacteria. CT scan of the abdomen pelvis without contrast showed a 6 mm stone left mid pelvis which is more distal than 5 days ago however patient continues to have mild to moderate hydroureter and hydronephrosis.] Emergency Department Course and Treatment: Patient was medicated with Toradol, Zofran, and Dilaudid. She had good improvement in her pain. [] Treatment Plan: [Admit for pain control and possible evaluation for intervention given the stone is 6 mm and may or may not pass.] Disposition: [Admit] Impression: [Urolithiasis Intractable pain] This note was generated with [employer] dictation software. It may contain incorrect words, spelling, and punctuation that were not noted in review of the chart prior to signing ED Disposition - Plan for ED Patient: Chief Complaint: Flank Pain Referrals: Glenn Plascencia, MIKHAIL-C [Primary Care Provider] - What to do if you have Problems For any increased pain, shortness of breath, bleeding, nausea or vomiting, chest pain, or any unexpected problems, contact your Primary Care Provider. Call [facility] ([phone]) or report to the closest Emergency Room. Call 911 if necessary. 02/28/18 1612 <Electronically signed by Amy Mcneil DO> Date Amy Mcneil DO Cosigner Signature (If Indicated): Date CC: Glenn HAND 12 LEAD ELECTROCARDIOGRAM Observed: 02/27/2018 Status: F Source: [place] 1:57 PM [facility] [facility] Cardiovascular Services [address] [place] [address] 12 Lead EKG 02/25/18 0521 MR#: [id number] Acct: [id number] Name: JACOBY COOK Rep #: [id number] : 1960 57 From: Akshat Sarmiento MD Attending Dr: Sumi Mead MD Status: DIS IN Ordering Dr: Bill Dias MD Date: 02/25/18 [place] [facility] [facility] [place] C Admitted: 02/23/18 Test Reason : AM EKG Blood Pressure : / mmHG Vent. Rate : 070 BPM Atrial Rate : 070 BPM P-R Int : 174 ms QRS Dur : 100 ms QT Int : 364 ms P-R-T Axes : 050 -56 -11 degrees QTc Int : 393 ms Normal sinus rhythm Left axis deviation Poor R wave progression Abnormal ECG Confirmed by GUILLERMINA DEUTSCH, AKSHAT ([id number]), online content editor JESSY DAWN ([id number]) on 02/27/2018 1:56:21 PM Referred By: Sienna Winchester Confirmed By:AKSHAT SARMIENTO MD 02/27/18 1356 Date Akshat Sarmiento MD CC: Sumi Mead MD; Sienna Winchester; Bill Dias MD; Glenn HAND Signed DISCHARGE SUMMARY Observed: 02/26/2018 Status: F Source: [place] 4:01 PM [facility] [facility] Medical Records Department [address] [facility] [address] Discharge Summary 02/26/18 1056 MR#: [id number] Acct: [id number] Name: JACOBY COOK Rep #: [id number] : 1960 57 From: Sumi Mead MD PCP: Glenn Vogel Status: DIS IN Y [place] [facility] [id number] Discharge Date and Diagnosis Date of Admission: 02/23/18 Date of Discharge: 02/26/18 - Primary Discharge Diagnosis Active and Suspected Problems Nephrolithiasis (Acute) REINALDO (acute kidney injury) (Acute) Constipation Suspected complicated UTI - Secondary Discharge Diagnosis Chronic Problems Diabetes mellitus type 2 in obese (Chronic) Hypertension (Chronic) Chronic back pain (Chronic) GERD (gastroesophageal reflux disease) (Chronic) COPD (chronic obstructive pulmonary disease) (Chronic) Obesity (BMI 30.0-34.9) (Chronic) Tobacco use (Chronic) Hospital Course and Treatment Imaging Results: Clinical Impression(s) from Imaging Studies Abdomen/Pelvis CT 02/23/18 22:20 IMPRESSION: Mild to moderate left hydronephrosis and hydroureter with the previously seen proximally left ureteral calculus currently located in the left mid pelvis of 0.6cm. Stable bilateral nonobstructing small renal calculi, hepatomegaly, hepatic steatosis, cholecystectomy, hysterectomy, pancreas involution, atherosclerosis, osseous changes as above. Electronically Signed: Yovana Greenwood MD at 23:25 EST , Service support , Urology - Dr. Mcmullen Operations: None Procedures: - - Cystoscopy, ureteroscopy, lithotripsy Summary of Care Provided: 57 y/o female with PMHx of Type 2 DM, hypertension, hyperlipidemia, obesity, nicotine dependence comes in with complains of left flank pain and found to have an obstructing proximal left ureteral calculus, 0.6cm. 1. Acute left obstructing proximal ureter nephrolithiasis with hydroureter and hydronephrosis, 0.6 cm, s/p cystoscopy, ureteroscopy and lithotripsy, will follow up with urology in the outpatient. 2. Episode of fever, recent urological instrumentation, will treat as suspected complicated UTI with IV cefdinir for 7 days 3. REINALDO, post-renal, related to obstruction from kidney stone, improved 4. Hypertension, controlled, on losartan. Losartan was held on account of REINALDO, resumed at discharge. 5. Constipation, likely opioid-induced, on bowel regimen, resolved Subjective: Patient was seen and examined. Complained of constipation for 11 days. Previous stool regimen have not helped. Had a cystoscopy/ureteroscopy done yesterday. No more abdominal pain; just abdominal discomfort from constipation. ROS was negative. Objective: Physical exam: General: Alert, Oriented x3, Cooperative, No apparent distress, - - obese HEENT: Atraumatic, PERRLA, EOMI, Normocephalic Oral: Moist Mucosa Neck: Supple, No JVD, Negative Carotid Bruits Lungs: Clear to auscultation, Normal air movement Cardiovascular: Regular rate, Regular Rhythm, Normal S1, Normal S2, No murmurs Abdomen: Bowel Sounds Present, Soft, Non-Distended, No Hepato- splenomegaly, Tender - left flank tenderness Extremities: No edema, Capillary Refill Less than 3 Seconds Skin: No rashes, No breakdown Musculoskeletal: No Tenderness to Palpation of Joints or Extremities Lymphatic: No Cervical, Supraclavicular, or Inguinal Adenopathy Neurological: Cranial nerves II-XII grossly intact, Neuro grossly intact Psych/Mental Status: Normal Affect, Appropriate - Physical Exam Vital Signs Temp Pulse Resp BP Pulse Ox 98.3 F 70 18 114/63 95 02/26/18 07:36 02/26/18 07:36 02/26/18 07:36 02/26/18 07:36 02/26/18 07:36 Oxygen Flow Rate (L/min) 2 Oxygen Delivery Method Room Air Weight: 78.1 kg Body Mass Index (BMI) 32.5 Finger Stick Blood Glucose 148 Intake and Output for Last 24 Hours Intake Total 2757 / 2757 2871 / 2871 2565 / 2565 Output Total 1900 / 1900 2200 / 2200 1400 / 1400 Balance 857 / 857 671 / 671 1165 / 1165 POC Glucose POC Glucose 155 H 246 H 204 H POC Glucose 148 H 183 H Discharge Diet: Low fat/ Low Cholesterol, 2000 mg Sodium Diet, Carb Control Diet Discharge Activity: Return to Normal Activity Home Medications: Medications to take at Discharge Losartan Potassium [Cozaar] 25 mg PO DAILY 06/13/13 Multivitamins,Therapeutic [Multivitamin] 1 tablet PO DAILY 06/13/13 Polyethylene Glycol 3350 [Miralax] 17 gm PO DAILY PRN 06/13/13 Pravastatin [Pravachol] 80 mg PO QHS 06/13/13 Pregabalin [Lyrica] 200 mg PO BID 06/13/13 Tizanidine HCl [Zanaflex] 4 mg PO TID PRN 06/13/13 Zolpidem Tartrate [Ambien] 10 mg PO QHS PRN PRN 06/13/13 Aspirin [Aspirin, Baby] 81 mg PO DINNER 01/16/14 Budesonide/Formoterol 80-4.5 [Symbicort 80-4.5 Mcg Inhaler] 2 puff INHALATION BID 01/16/14 Cholecalciferol (VIT D3) [Vitamin D3] 1,000 unit PO DAILY 01/16/14 Dexlansoprazole [Dexilant] 60 mg PO QHS 11/22/16 Hydrocodone Bitartrate [Hysingla ER] 40 mg PO DAILY 11/22/16 Albuterol Sulfate [Ventolin Hfa] 2 puff INHALATION Q4H PRN PRN 06/08/17 Duloxetine HCl 30 mg PO DAILY 06/08/17 Lidocaine [Lidoderm Patch] 1 patch TOPICAL DAILY 06/08/17 Metformin HCl [Glucophage] 500 mg PO BID #30 tab 06/09/17 Hydrocodone/Acetaminophen [Hydrocodone-Acetamin 10-325 mg] 1 tab PO BID 02/18/18 Ondansetron [Zofran Odt] 4 mg PO Q8H PRN PRN #10 tablet 02/18/18 Ascorbic Acid/Ascorbate Sodium [Vitamin C 500 mg Wafer] 500 mg PO TID 02/24/18 Acetaminophen [Tylenol Tablet] 650 mg PO Q6H PRN PRN tablet 02/26/18 Cefdinir [Omnicef [equiv]] 300 mg PO Q12H #14 capsule 02/26/18 Nicotine [Nicoderm Cq] 21 mg TRANSDERM. DAILY #30 patch 02/26/18 Senna/Docusate Sodium [Senokot-S] 2 tablet PO DAILY PRN PRN #60 tablet 02/26/18 Following Prescrptions Were Given to Patient: Cefdinir [Omnicef [equiv]] 300 mg PO Q12H #14 capsule Nicotine [Nicoderm Cq] 21 mg TRANSDERM. DAILY #30 patch Senna/Docusate Sodium [Senokot-S] 2 tablet PO DAILY PRN PRN #60 tablet PRN Reason: CONSTIPATION Primary Care Physician: Glenn Plascencia NP-C [Primary Care Provider] - Please follow up with your Primary Care Physician in: within 2 weeks Please Follow Up With: Sandeep Mcmullen MD When: within 2 weeks or as scheduled Disposition: Home Minutes spent on discharge:: 45 Patient Condition:: Stable Medical Necessity - Tobacco Use Smoking Status: Current every day smoker Tobacco Use: Cigarettes Meaningful Use Info Meaningful Use Diagnoses (Choose all that apply): None applicable Code Visit Inpatient E AND M: 78310 Disch Hosp 02/26/18 1601 <Electronically signed by Sumi Mead MD> Date Sumi Mead MD Cosigner Signature (if applicable): Date CC: Sumi Mead MD; Glenn HAND Signed BASIC METABOLIC Collected: 02/26/2018 Status: F Source: [place] PROFILE (BMP) 11:55 AM [facility] [place] TYPE CODE TESTS RESULT OUT OF RANGE REFERENCE UNITS LAB L501.0100 74-106 mg/dL High GLU 174 Result Comment: Fasting Glucose result greater than or equal to 126 mg/dL suggests DIABETES MELLITUS per A.D.A. criteria. Please note revised GLUCOSE reference range effective 2017. LAB L501.1000 7-18 mg/dL Normal BUN 15 LAB L501.1100 0.55-1.02 mg/dL High CREAT,SERUM 1.35 Result Comment: The validity of the calculated GFR AND GFRAA in patients over 70 years has not been determined. Clinical correlation is essential. LAB L501.1110 >60 mL/min Low EST GFR 43 Result Comment: Non- GFR Calc LAB L501.1115 >60 mL/min Low EST GFR - AA 52 Result Comment: GFR Calc LAB L501.1255 ml/min Normal Estimated CRCL 33.86 LAB L501.1300 10-20 RATIO Normal BUN/CRE 11.1 LAB L501.2200 8.5-10 mg/dL Normal .1 CA 9.5 LAB L501.5300 136-14 mmol/L Normal 5 NA 141 LAB L501.5600 3.5-5. mmol/L Normal 1 K 4.9 LAB L501.5900 98-107 mmol/L High CL 108 LAB L501.6100 21.0-3 mmol/L Normal 2.0 CO2 28.0 LAB L501.6200 5-15 Normal GAP 5 Performed By: #### L500.2500 #### [facility] [address] [place], [address] BEDSIDE GLUCOSE Collected: 02/26/2018 Status: F Source: [place] 11:44 AM [facility] [place] TYPE CODE TESTS RESULT OUT OF REFERENCE UNITS RANGE LAB L501.080 70-110 mg/dL High BEDSIDE GLU 190 Result Comment: MANAGEMENT OF PATIENT CARE PER NURSING PROTOCOL Performed By: #### L501.080 #### [facility] Point of Care [address] [place] [place] [address] DISCHARGE INSTRUCTION Observed: 02/26/2018 Status: F Source: [place] 10:56 AM [facility] [place] [facility] Medical Records Department [address] [place] [address] Instructions for Home/Discharge Instructions 02/26/18 0843 MR#: [id number] Acct: [id number] Name: JACOBY COOK Rep #: [id number] : 1960 57 From: Sumi Mead MD PCP: Glenn Vogel Status: ADM IN - Discharge Diagnoses Current Active Problems: Current Active and Chronic Problems Nephrolithiasis (Acute) REINALDO (acute kidney injury) (Acute) Obesity (BMI 30.0-34.9) (Chronic) Tobacco use (Chronic) Reason(s) for Visit for Discharge Instructions: Abdominal pain You will use the following diet at home:: Calorie/Carbohydrate Controlled (specify 1200, 1400, etc), Cardiac Your food should be the consistency of: Regular Your liquids should be the consistency of: Regular/Thin Discharge Activity: Return to Normal Activity Additional Instructions: Complete your antibiotics as prescribed. Continue to hydrate yourself. Follow-up with [facility] primary doctor within a week for repeat blood work. Follow-up with urologist as planned. Allergies/Adverse Reactions: Allergies No Known Allergies Allergy (Verified 02/23/18 22:10) Medications to take at Discharge Losartan Potassium [Cozaar] 25 mg PO DAILY 06/13/13 Multivitamins,Therapeutic [Multivitamin] 1 tablet PO DAILY 06/13/13 Polyethylene Glycol 3350 [Miralax] 17 gm PO DAILY PRN 06/13/13 Pravastatin [Pravachol] 80 mg PO QHS 06/13/13 Pregabalin [Lyrica] 200 mg PO BID 06/13/13 Tizanidine HCl [Zanaflex] 4 mg PO TID PRN 06/13/13 Zolpidem Tartrate [Ambien] 10 mg PO QHS PRN PRN 06/13/13 Aspirin [Aspirin, Baby] 81 mg PO DINNER 01/16/14 Budesonide/Formoterol 80-4.5 [Symbicort 80-4.5 Mcg Inhaler] 2 puff INHALATION BID 01/16/14 Cholecalciferol (VIT D3) [Vitamin D3] 1,000 unit PO DAILY 01/16/14 Dexlansoprazole [Dexilant] 60 mg PO QHS 11/22/16 Hydrocodone Bitartrate [Hysingla ER] 40 mg PO DAILY 11/22/16 Albuterol Sulfate [Ventolin Hfa] 2 puff INHALATION Q4H PRN PRN 06/08/17 Duloxetine HCl 30 mg PO DAILY 06/08/17 Lidocaine [Lidoderm Patch] 1 patch TOPICAL DAILY 06/08/17 Metformin HCl [Glucophage] 500 mg PO BID #30 tab 06/09/17 Hydrocodone/Acetaminophen [Hydrocodone-Acetamin 10-325 mg] 1 tab PO BID 02/18/18 Ondansetron [Zofran Odt] 4 mg PO Q8H PRN PRN #10 tablet 02/18/18 Ascorbic Acid/Ascorbate Sodium [Vitamin C 500 mg Wafer] 500 mg PO TID 02/24/18 Acetaminophen [Tylenol Tablet] 650 mg PO Q6H PRN PRN tablet 02/26/18 Cefdinir [Omnicef [equiv]] 300 mg PO Q12H #14 capsule 02/26/18 Nicotine [Nicoderm Cq] 21 mg TRANSDERM. DAILY #30 patch 02/26/18 Senna/Docusate Sodium [Senokot-S] 2 tablet PO DAILY PRN PRN #60 tablet 02/26/18 The following prescriptions were given: Cefdinir [Omnicef [equiv]] 300 mg PO Q12H #14 capsule Nicotine [Nicoderm Cq] 21 mg TRANSDERM. DAILY #30 patch Senna/Docusate Sodium [Senokot-S] 2 tablet PO DAILY PRN PRN #60 tablet PRN Reason: CONSTIPATION Primary Care Physician: Glenn Plascencia, ENTER[employer] SYSTEM[employer] ADMINISTRATOR-C [Primary Care Provider] - Please follow up with your Primary Care Physician in: within 2 weeks Test Results: Test results from this visit will be discussed in further detail at your follow-up appointment, if applicable. Please Follow Up With: Sandeep Mcmullen MD When: within 2 weeks or as scheduled Proposed Discharge Date: 02/26/18 02/26/18 1056 <Electronically signed by Sumi Mead MD> Date Sumi Mead MD CC: Glenn HAND; Sandeep Mcmullen MD Signed BEDSIDE GLUCOSE Collected: 02/26/2018 Status: F Source: [place] 6:42 AM [facility] [place] TYPE CODE TESTS RESULT OUT OF REFERENCE UNITS RANGE LAB L501.080 70-110 mg/dL High BEDSIDE GLU 155 Result Comment: MANAGEMENT OF PATIENT CARE PER NURSING PROTOCOL Performed By: #### L501.080 #### [facility] Point of Care [address] [place] [address] BEDSIDE GLUCOSE Collected: 02/25/2018 Status: F Source: [place] 10:56 PM [facility] [place] TYPE CODE TESTS RESULT OUT OF REFERENCE UNITS RANGE LAB L501.080 70-110 mg/dL High BEDSIDE GLU 246 Result Comment: MANAGEMENT OF PATIENT CARE PER NURSING PROTOCOL Performed By: #### L501.080 #### [facility] Point of Care [address] [place] [address] BEDSIDE GLUCOSE Collected: 02/25/2018 Status: F Source: [place] 4:32 PM [facility] [place] TYPE CODE TESTS RESULT OUT OF REFERENCE UNITS RANGE LAB L501.080 70-110 mg/dL High BEDSIDE GLU 204 Result Comment: MANAGEMENT OF PATIENT CARE PER NURSING PROTOCOL Performed By: #### L501.080 #### [facility] Point of Care [address] [place] [address] BEDSIDE GLUCOSE Collected: 02/25/2018 Status: F Source: [place] 1:42 PM [facility] REPOSITORY TYPE CODE TESTS RESULT OUT OF REFERENCE UNITS RANGE LAB L501.080 70-110 mg/dL High BEDSIDE GLU 148 Result Comment: MANAGEMENT OF PATIENT CARE PER NURSING PROTOCOL Performed By: #### L501.080 #### [facility] Point of Care [address] [address] OPERATIVE REPORT Observed: 02/25/2018 Status: F Source: [place] 12:44 PM [facility] [place] [facility] Medical Records Department [address] [place] [id number] Operative Report 02/25/18 1241 MR#: [id number] Acct: [id number] Name: JACOBY COOK Rep #: [id number] : 1960 57 From: Sandeep Mcmullen MD PCP: Glenn Vogel Status: ADM IN Location: [place] [address] Report of Operation Date of Procedure: 02/25/18 Pre-Operative Diagnosis: Left ureteral calculi causing hydronephrosis and obstruction Post-Operative Diagnosis: same Surgery/Procedure Performed:: Cystoscopy, balloon dilation of the ureter, left ureteroscopy laser lithotripsy of the stone no stent Description of Surgical Findings:: 57-year-old female with a history of ureteral calculi presented to the hospital with obstructing large mid left ureteral calculi with a high-grade obstruction. 57-year-old female taken back to the operating room after smooth induction of anesthesia she was placed in dorsolithotomy position the urethra and vaginal area prepped and draped in usual sterile fashion went into the bladder with a 21 Stateless rigid cystourethroscope cannulated the left ureteral orifice there was fabienne blood coming out of the orifice I then advanced the balloon dilator over the wire and balloon dilated the distal ureter left the wire in place and then next the wire I went in with a 7.9 Stateless rigid offset ureteroscope was able to get up to the ureter quite easily got to the mid ureter and encountered the stone I then used a laser 270 m fiber laser laser the stone with settings of 0.6 J and 6 Hz after lasering the stone completely then I basketed some of the fragments and also some of the debris in the ureter until the urine was clear and I worked my way down the ureter stone fragments were passing are quite small side not to leave a stent patient anesthetic is currently being reversed. Patient's bladder was drained. Type of Anesthesia:: General Drains: none - Admit VTE Documentation VTE Present on Admission: No VTE Mechan Device Prophylaxis: SCD's 02/25/18 1244 <Electronically signed by Sandeep Mcmullen MD> Date Sandeep Mcmullen MD CC: Sienna Winchester; Glenn HAND; Sandeep Mcmullen MD Signed BEDSIDE GLUCOSE Collected: 02/25/2018 Status: F Source: [place] 10:56 AM [facility] [place] TYPE CODE TESTS RESULT OUT OF REFERENCE UNITS RANGE LAB L501.080 70-110 mg/dL High BEDSIDE GLU 183 Result Comment: MANAGEMENT OF PATIENT CARE PER NURSING PROTOCOL Performed By: #### L501.080 #### [facility] Point of Care [address] [place] [place] [address] BEDSIDE GLUCOSE Collected: 02/25/2018 Status: F Source: [place] 6:40 AM [facility] [place] TYPE CODE TESTS RESULT OUT OF REFERENCE UNITS RANGE LAB L501.080 70-110 mg/dL High BEDSIDE GLU 202 Result Comment: MANAGEMENT OF PATIENT CARE PER NURSING PROTOCOL Performed By: #### L501.080 #### [facility] Point of Care [address] [facility] [place] [address] BASIC METABOLIC Collected: 02/25/2018 Status: F Source: [place] PROFILE (BMP) 5:35 AM [facility] [place] TYPE CODE TESTS RESULT OUT OF RANGE REFERENCE UNITS LAB L501.0100 74-106 mg/dL High GLU 191 Result Comment: Fasting Glucose result greater than or equal to 126 mg/dL suggests DIABETES MELLITUS per A.D.A. criteria. Please note revised GLUCOSE reference range effective 2017. LAB L501.1000 7-18 mg/dL Normal BUN 16 LAB L501.1100 0.55-1.02 mg/dL High CREAT,SERUM 1.22 Result Comment: The validity of the calculated GFR AND GFRAA in patients over 70 years has not been determined. Clinical correlation is essential. LAB L501.1110 >60 mL/min Low EST GFR 48 Result Comment: Non- GFR Calc LAB L501.1115 >60 mL/min Low EST GFR - AA 58 Result Comment: GFR Calc LAB L501.1255 ml/min Normal Estimated CRCL 37.47 LAB L501.1300 10-20 RATIO Normal BUN/CRE 13.1 LAB L501.2200 8.5-10 mg/dL Normal .1 CA 9.8 LAB L501.5300 136-14 mmol/L Normal 5 NA 139 LAB L501.5600 3.5-5. mmol/L Normal 1 K 5.0 LAB L501.5900 98-107 mmol/L Normal CL 106 LAB L501.6100 21.0-3 mmol/L Normal 2.0 CO2 28.0 LAB L501.6200 5-15 Normal GAP 5 Performed By: #### L500.2500 #### [facility] [address], [address] CBC W/DIFF, AUTOMATED Collected: 02/25/2018 Status: F Source: [place] 5:35 AM [facility] [facility] [place] TYPE CODE TESTS RESULT OUT OF RANGE REFERENCE UNITS LAB L100.1000 4.4-11.0 K/mm3 Normal WBC 8.1 LAB L100.1200 4.2-5.4 M/mm3 Low RBC 3.79 LAB L100.1300 12.0-15.0 g/dl Normal HGB 12.7 LAB L100.1400 37-47 % Normal HCT 38.8 LAB L100.1500 81-99 fL High MCV 102.4 LAB L100.1600 27.0-32.0 pg High MCH 33.5 LAB L100.1700 32-36 g/gl Normal MCHC 32.7 LAB L100.1810 11.6-14.6 % Normal RDW CV 14.1 LAB L100.1820 35.1-43.9 fl High RDW SD 51.7 LAB L100.1900 150-450 K/mm3 Normal PLT 184 LAB L100.2000 6.2-12.0 fl Normal MPV 10.8 LAB L100.2100 47-70 % Normal NEUT% 54.2 LAB L100.2200 19-41 % Normal LY% 32.1 LAB L100.2300 0-10 % High MONO% 10.3 LAB L100.2400 0-5 % Normal EO% 3.0 LAB L100.2500 0-1 % Normal BASO% 0.2 LAB L100.2550 0.0-0.9 % Normal IM GRAN % 0.200 Result Comment: IG% - Immature Granulocytes (promyelocytes, myelocytes and metamyelocytes) > 1% indicates that a LEFT SHIFT is Present. LAB L100.2620 2.0-7.7 X10 3/uL Normal Absolute Neut 4.4 LAB L100.2720 0.83-4.51 X10 3/ul Normal Absolute Lymph 2.59 Performed By: #### L100.0100 #### [facility] [address] [facility] [place], [address] HEMOGLOBIN A1C Collected: 02/25/2018 Status: F Source: [place] 5:35 AM [facility] [place] TYPE CODE TESTS RESULT OUT OF RANGE REFERENCE UNITS LAB L501.9985 4.2-6.3 % High HGB A1C 8.4 Performed By: #### L501.9985 #### [facility] [address] [facility] [facility] [address] BEDSIDE GLUCOSE Collected: 02/24/2018 Status: F Source: [place] 9:06 PM [facility] [facility] [place] TYPE CODE TESTS RESULT OUT OF REFERENCE UNITS RANGE LAB L501.080 70-110 mg/dL High BEDSIDE GLU 259 Result Comment: MANAGEMENT OF PATIENT CARE PER NURSING PROTOCOL Performed By: #### L501.080 #### [facility] Point of Care [address] [facility] [place] [address] BEDSIDE GLUCOSE Collected: 02/24/2018 Status: F Source: [place] 3:15 PM [facility] [place] TYPE CODE TESTS RESULT OUT OF REFERENCE UNITS RANGE LAB L501.080 70-110 mg/dL High BEDSIDE GLU 227 Result Comment: MANAGEMENT OF PATIENT CARE PER NURSING PROTOCOL Performed By: #### L501.080 #### [facility] Point of Care [address] [place] [address] BEDSIDE GLUCOSE Collected: 02/24/2018 Status: F Source: [place] 11:27 AM [facility] [place] TYPE CODE TESTS RESULT OUT OF REFERENCE UNITS RANGE LAB L501.080 70-110 mg/dL High BEDSIDE GLU 232 Result Comment: MANAGEMENT OF PATIENT CARE PER NURSING PROTOCOL Performed By: #### L501.080 #### [facility] Point of Care [address] [place] [address] CONSULTATION Observed: 02/24/2018 Status: F Source: [place] 9:42 AM [facility] [facility] Medical Records Department [address] [place] [address] Consultation 02/24/18 0939 MR#: [id number] Acct: [id number] Name: JACOBY COOK Rep #: [id number] : 1960 57 From: Sandeep Mcmullen MD PCP: Glenn Vogel Status: ADM TAMMIE Y Location: [place] [address] Reason for Consult Date of Consultation: 02/24/18 Reason for Consultation: left ureteral calculi History of Present Illness: The patient is a 57 year old female admitted with a 5-6mm left ureteral calculi. patient stable, I have been asked to see her. Past Medical History Past Medical History (Chronic Problems): Chronic Problems Diabetes mellitus type 2 in obese (Chronic) Hypertension (Chronic) Chronic back pain (Chronic) GERD (gastroesophageal reflux disease) (Chronic) COPD (chronic obstructive pulmonary disease) (Chronic) Obesity (BMI 30.0-34.9) (Chronic) Tobacco use (Chronic) Allergies No Known Allergies Allergy (Verified 02/23/18 22:10) Home Medications: Ambulatory Orders Medication Instructions Recorded Losartan Potassium [Cozaar] 25 mg PO DAILY 06/13/13 Surgical History: noncontributory, - - Appendectomy, cholecystectomy, hysterectomy, right shoulder surgery, lumbar back surgery. 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 Lives: Spouse/ Significant Other Smoking Status: Current every day smoker Tobacco Use: Cigarettes Alcohol: None Drugs: None - *Family History Maternal History Items: Diabetes, Hypertension Paternal History Items: Diabetes, Heart Disease, Hypertension Review of Systems Constitutional: Denies: Chills, Fever, Weight Change HEENT: Denies: Head Aches, Sinus Congestion, Sinus Drainage Cardiovascular: Denies: Chest Pain, Palpitations Respiratory: Denies: Cough, Shortness of breath at rest, Sputum production Gastrointestinal: Reports: Abdominal Pain Genitourinary: Denies: Dysuria Musculoskeletal: Denies: Joint Pain, Joint Tenderness Physical Exam - Physical Exam Vital Signs Temp 98.1 F 02/24/18 08:21 Pulse 74 02/24/18 08:21 Resp 18 02/24/18 08:21 BP 127/70 H 02/24/18 08:21 Pulse Ox 94 02/24/18 08:21 Intake AND Output Laboratory Tests Past 24 Hrs WBC 12.2 H RBC 4.38 Hgb 15.0 Hct 44.2 MCV 100.9 H MCH 34.2 H MCHC 33.9 RDW 14.0 WBC 9.3 RBC 3.98 L Hgb 13.3 WBC RBC Hgb Hct MCV MCH Assessment/Plan All Active Problems Atypical chest pain (Acute) Nephrolithiasis (Acute) REINALDO (acute kidney injury) (Acute) admitted for left ureteral calculi will plan for intervention on sunday either ureteroscopy and laser or just a stent npo at midnight. 02/24/18 0942 <Electronically signed by Sandeep Mcmullen MD> Date Sandeep Mcmullen MD Cosigner Signature (if applicable): Date CC: Sienna Winchester; Glenn HAND; Sandeep Mcmullen MD Signed BEDSIDE GLUCOSE Collected: 02/24/2018 Status: F Source: [place] 6:33 AM [facility] [facility] [place] TYPE CODE TESTS RESULT OUT OF REFERENCE UNITS RANGE LAB L501.080 70-110 mg/dL High BEDSIDE GLU 138 Result Comment: MANAGEMENT OF PATIENT CARE PER NURSING PROTOCOL Performed By: #### L501.080 #### [facility] Point of Care [address] [place], [place] [address] CBC W/DIFF, AUTOMATED Collected: 02/24/2018 Status: F Source: [place] 5:55 AM [facility] [place] TYPE CODE TESTS RESULT OUT OF RANGE REFERENCE UNITS LAB L100.1000 4.4-11.0 K/mm3 Normal WBC 9.3 LAB L100.1200 4.2-5.4 M/mm3 Low RBC 3.98 LAB L100.1300 12.0-15.0 g/dl Normal HGB 13.3 LAB L100.1400 37-47 % Normal HCT 39.8 LAB L100.1500 81-99 fL High MCV 100.0 LAB L100.1600 27.0-32.0 pg High MCH 33.4 LAB L100.1700 32-36 g/gl Normal MCHC 33.4 LAB L100.1810 11.6-14.6 % Normal RDW CV 13.8 LAB L100.1820 35.1-43.9 fl High RDW SD 50.1 LAB L100.1900 150-450 K/mm3 Normal PLT 177 LAB L100.2000 6.2-12.0 fl Normal MPV 10.6 LAB L100.2100 47-70 % Normal NEUT% 55.1 LAB L100.2200 19-41 % Normal LY% 31.6 LAB L100.2300 0-10 % Normal MONO% 9.5 LAB L100.2400 0-5 % Normal EO% 3.2 LAB L100.2500 0-1 % Normal BASO% 0.3 LAB L100.2550 0.0-0.9 % Normal IM GRAN % 0.300 Result Comment: IG% - Immature Granulocytes (promyelocytes, myelocytes and metamyelocytes) > 1% indicates that a LEFT SHIFT is Present. LAB L100.2620 2.0-7.7 X10 3/uL Normal Absolute Neut 5.1 LAB L100.2720 0.83-4.51 X10 3/ul Normal Absolute Lymph 2.94 Performed By: #### L100.0100 #### [facility] [address] [place], [place], [address] BASIC METABOLIC Collected: 02/24/2018 Status: F Source: [place] PROFILE (BMP) 5:55 AM [facility] [facility] [place] TYPE CODE TESTS RESULT OUT OF RANGE REFERENCE UNITS LAB L501.0100 74-106 mg/dL High GLU 166 Result Comment: Fasting Glucose result greater than or equal to 126 mg/dL suggests DIABETES MELLITUS per A.D.A. criteria. Please note revised GLUCOSE reference range effective 2017. LAB L501.1000 7-18 mg/dL High BUN 19 LAB L501.1100 0.55-1.02 mg/dL High CREAT,SERUM 1.30 Result Comment: The validity of the calculated GFR AND GFRAA in patients over 70 years has not been determined. Clinical correlation is essential. LAB L501.1110 >60 mL/min Low EST GFR 45 Result Comment: Non- GFR Calc LAB L501.1115 >60 mL/min Low EST GFR - AA 54 Result Comment: GFR Calc LAB L501.1255 ml/min Normal Estimated CRCL 35.16 LAB L501.1300 10-20 RATIO Normal BUN/CRE 14.6 LAB L501.2200 8.5-10 mg/dL Normal .1 CA 9.9 LAB L501.5300 136-14 mmol/L Normal 5 NA 140 LAB L501.5600 3.5-5. mmol/L Normal 1 K 4.7 LAB L501.5900 98-107 mmol/L Normal CL 106 LAB L501.6100 21.0-3 mmol/L Normal 2.0 CO2 27.0 LAB L501.6200 5-15 Normal GAP 7 Performed By: #### L500.2500 #### [facility] [address] [facility] [place], [address] HEMOGLOBIN A1C Collected: 02/24/2018 Status: F Source: [place] 5:55 AM [facility] [facility] [place] TYPE CODE TESTS RESULT OUT OF RANGE REFERENCE UNITS LAB L501.9985 4.2-6.3 % High HGB A1C 8.2 Performed By: #### L501.9985 #### [facility] [address] [facility] [place], [place], [address] HISTORY AND PHYSICAL Observed: 02/24/2018 Status: F Source: [place] EXAM 12:38 AM [facility] [facility] Medical Records Department [address] [place] [id number] History and Physical 02/23/18 2340 MR#: [id number] Acct: [id number] Name: JACOBY COOK Rep #: [id number] : 1960 57 From: Sienna Winchester PCP: Glenn Vogel Status: ADM TAMMIE Y Location: [place] [address] Problem List (1) Nephrolithiasis Status: Acute (2) REINALDO (acute kidney injury) Status: Acute (3) Obesity (BMI 30.0-34.9) Status: Chronic (4) Diabetes mellitus type 2 in obese Status: Chronic (5) Hypertension Status: Chronic Qualifiers: Hypertension type: essential hypertension Qualified Code(s): I10 - Essential (primary) hypertension (6) Chronic back pain Status: Chronic Qualifiers: Back pain location: back pain in unspecified location Back pain laterality: unspecified Qualified Code(s): M54.9 - Dorsalgia, unspecified; G89.29 - Other chronic pain (7) GERD (gastroesophageal reflux disease) Status: Chronic Qualifiers: Esophagitis presence: esophagitis presence not specified Qualified Code(s): K21.9 - Gastro-esophageal reflux disease without esophagitis (8) COPD (chronic obstructive pulmonary disease) Status: Chronic Qualifiers: COPD type: unspecified COPD Qualified Code(s): J44.9 - Chronic obstructive pulmonary disease, unspecified (9) Tobacco use Status: Chronic History of Present Illness Date of Admission: 02/23/18 Chief Complaint: L flank pain, ongoing, recent kidney stone diagnosis 1 week prior The patient is a 57 y/o F w/ PMHx: Obesity, HTN, HLD, Diabetes mellitus type II, Chronic Pain Syndrome, GERD, Chronic COPD, Tobacco use who presents to the [facility] ED on 02/23/18 with history of ongoing L flank discomfort, severe in nature, 10/10 with notable nausea without emesis, hematuria x 1 week w/ ED evaluation on 02/18/18 secondary to symptoms w/ CT A/P notable for kidney stone who now re-presents to the [facility] secondary to ongoing symptoms, not improving with no associated fever or chills. She notes secondary to increased pain regimen she has had recently constipation. Prior ED with CT A/P at that time w/ noted acute urinary calculus passage on the left with hydronephrosis and hydroureter with calculus measuring 4.5 x 6 mm and lying within the proximal third of the left ureter. Current work-up in the ED included T 98.6, heart rate 91, BP 131/90, 96% on room air, CBC with WBC 12.2, hemoglobin 15, platelets 222 with left shift, BMP with BUN/creatinine 16/1.40 with prior baseline noted 0.9, glucose 233, calcium 10.7, urinalysis with no evidence of acute infection, CT abdomen and pelvis with mild to moderate left hydronephrosis and hydroureter with previously seen proximal left ureteral caliculus currently located in the left mid pelvis of 0.6 cm, stable bilateral nonobstructing small renal calculi, hepatomegaly, hepatic steatosis, cholecystectomy, hysterectomy, pancreas involution, atherosclerosis, osseous changes. In the ED patient administered normal saline, Dilaudid, Toradol, Zofran. Past Medical History Past Medical History (Chronic Problems): Chronic Problems Diabetes mellitus type 2 in obese (Chronic) Hypertension (Chronic) Chronic back pain (Chronic) GERD (gastroesophageal reflux disease) (Chronic) COPD (chronic obstructive pulmonary disease) (Chronic) Obesity (BMI 30.0-34.9) (Chronic) Tobacco use (Chronic) Allergies No Known Allergies Allergy (Verified 02/23/18 22:10) Home Medications: Ambulatory Orders Medication Instructions Recorded Losartan Potassium [Cozaar] 25 mg PO DAILY 06/13/13 Surgical History: - - Appendectomy, cholecystectomy, hysterectomy, right shoulder surgery, lumbar back surgery. 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 Tobacco Use: Cigarettes Alcohol: None Drugs: None - *Family History Maternal History Items: Diabetes, Hypertension Paternal History Items: Diabetes, Heart Disease, Hypertension Review of Systems Constitutional: Reports: Anorexia, Malaise, Weakness, Fatigue. Denies: Chills, Fever, Weight Change HEENT: Denies: Head Aches, Sinus Congestion, Sinus Drainage Cardiovascular: Denies: Chest Pain, Palpitations Respiratory: Denies: Cough, Shortness of breath at rest, Sputum production Gastrointestinal: Reports: Abdominal Pain, Constipation, Nausea. Denies: Vomiting Genitourinary: Reports: Hematuria. Denies: Dysuria Musculoskeletal: Reports: Back Pain, Joint Pain, Neck Pain. Denies: Joint Tenderness Skin: Denies: Rash, Wounds Neurological: Denies: Numbness, Tingling, Focal weakness Psychiatric: Reports: Anxiety, Depression. Denies: Homicidal Ideations, Suicidal Ideations Hematologic/ Lymphatic: Denies: Easy Bruising, Easy Bleeding VTE Information - Inpt Only VTE Present on Admission: No VTE Mechan Device Prophylaxis: SCD's VTE Pharm Prophylaxis ordered?: Yes Patient Problems: Active and Suspected Problems Nephrolithiasis (Acute) REINALDO (acute kidney injury) (Acute) Subjective: Seated upright in the ED bed, uncomfortable appearing. Objective: Physical Examination: General: awake, alert, oriented x 3 and cooperative, seated upright in the ED bed, fatigued and uncomfortable appearing. Skin: normal color, turgor, no icterus, cyanosis. HEENT: AT/NC, EOMI, PERRLA, dry MM, no carotid bruits or JVD noted. Lungs: Diminished breath sounds bases, moderate effort, mild soft end expiratory wheeze occasionally, no rhonchi or rales noted. Heart: Regular rate and rhythm; no gallop, rub audible. Abdomen: soft, obese, L flank discomfort and L sided TTP, ND, normal BS, no HSM. Extremities: no cyanosis, clubbing, or edema. Neurological: patient awake, alert, oriented x 3; cognitive function intact; pupils equally reactive to light and accomodation; cranial nerves II-XII grossly normal, moving all 4 extremities, no focal deficits, strength moderately to severely globally decreased secondary to acute presentation. Psychiatric: affect appears fatigued, no acute evidence of depressive or anxiety feelings. - Physical Exam Vital Signs Temp Pulse Resp BP Pulse Ox 98.8 F 81 16 156/77 H 95 02/23/18 22:46 02/23/18 22:46 02/23/18 22:46 02/23/18 22:46 02/23/18 22:46 Oxygen Delivery Method Room Air Weight: 175 lb 0.752 oz Body Mass Index (BMI) 34.2 Laboratory Tests Past 24 Hrs WBC 12.2 H Assessment/Plan All Active Problems Atypical chest pain (Acute) Nephrolithiasis (Acute) REIANLDO (acute kidney injury) (Acute) The patient is a 57 y/o F w/ PMHx: Obesity, HTN, HLD, Diabetes mellitus type II, Chronic Pain Syndrome, GERD, Chronic COPD, Tobacco use who presents to the [facility] ED on 02/23/18 with history of ongoing L flank discomfort, severe in nature, 10/10 with notable nausea without emesis, hematuria x 1 week. (1) Acute Flank Pain, secondary to Acute Nephrolithiasis: WBC w/ 12.2 w/ L shift, UA not remarkable, CT abdomen and pelvis with mild to moderate left hydronephrosis and hydroureter with previously seen proximal left ureteral caliculus currently located in the left mid pelvis of 0.6 cm, stable bilateral nonobstructing small renal calculi, hepatomegaly, hepatic steatosis, cholecystectomy, hysterectomy, pancreas involution, atherosclerosis, osseous changes.. Will admit to MS, maintain on aggressive hydration, defer abx as UA not marked appearing, afebrile, maintain NPO for possible intervention needs if ongoing pain, not improving, worsened renal function, IV/Oral pain regimen, PRN anti-emetics, monitor I AND Os. Given size of calculus may possibly pass; however, no increased Cr, ongoing pain over 1 week, will request urology involvement. (2) Acute kidney injury: Secondary to acute nephrolithasis as noted, poor intake. Admission BUN/Cr 16/1.40, prior baseline creatinine noted to be 0.9. Will hydrate, hold nephrotoxic medications and repeat chemistry in AM. (3) Hypertension: Holding ARB given mild REINALDO, PRN hydralazine in interim. (4) Hyperlipidemia: Continue home statin regimen. (5) Chronic COPD: ATC duonebs, PRN albuterol, HOB, IS parameters. (6) Chronic Pain Syndrome: Chronic back pain, prior lumbar surgery, pending cervical intervention, holding mobic and IBU given REINALDO, continue home cymbalta, will continue Lyrica but if worsened renal function will need to discontinue, as well as hydrocodone bitartrate to maintain baseline with additional IV/oral as needed regimen for acute presentation. (7) Diabetes mellitus type II w/ Hyperglycemia: Hold oral home regimen, NPO status, HgbA1c pending, accu checks w/ ISS. (8) Obesity: Weight loss and lifestyle changes encouraged. (9) Anxiety and Depression: Continue home cymbalta regimen. (10) GERD: PPI. (11) DVT Prophylaxis: SCDs, heparin. Code Visit OBSV E AND M: [id number] Initial observation care L3 02/24/18 0038 <Electronically signed by Sienna Winchester > Date Sienna Masoud Winchester Cosigner Signature: Date (if applicable) CC: Sienna Winchester; Glenn HAND Signed URINALYSIS, COMPLETE Collected: 02/23/2018 Status: F Source: [place] 10:49 PM [facility] [place] Order Comment: Order Date: 02/23/18 Has pt arrived? Y How was Urine Obtained? CLEAN CATCH TYPE CODE TESTS RESULT OUT OF RANGE REFERENCE UNITS LAB L400.3000 Yellow COLOR Normal Yellow LAB L400.3050 Clear Normal CLARITY Clear LAB L400.3200 Normal mg/dl High 50 GLUCOSE, UR LAB L400.3300 Negative mg/dL Normal BILIRUBIN URINE Negative LAB L400.3400 Negative mg/dl Normal KETONE UR Negative LAB L400.3465 1.002-1.030 Normal SP.GR. DIPSTX 1.010 LAB L400.3550 5.0 - 8.0 pH UR Normal 7.0 LAB L400.3600 Negative mg/dl PROT Normal DIPSTX Negative LAB L400.3700 Normal mg/dl Normal UROBILI Normal LAB L400.3750 Negative Normal NITRITE UR Negative LAB L400.3780 Negative /ul High OCCULT BLOOD-UR 250 LAB L400.3800 Negative /ul High LEUK ESTERASE 500 LAB L400.4050 0-5 /hpf WBC Normal 5-10 SEEN LAB L400.4100 0-5 /hpf Normal RBC-UA 5-10 SEEN LAB L400.4150 5-10 /hpf SQUAM 0 Normal EPI SEEN LAB L400.4300 None Seen /hpf Normal BACTERIA RARE LAB L400.4350 <or=2+ /hpf 0 Normal MUCUS, URINE SEEN Performed By: #### L400.0001 #### [facility] [address] [place], [address] ABDOMEN/PELVIS WITHOUT Observed: 02/23/2018 Status: F Source: [place] CONT 10:21 PM [facility] [place] [facility] Imaging Services [address] [place] [address] Abdomen/Pelvis without Cont MR#: [id number] Acct: [id number] Name: JACOBY COOK Rep #: [id number] : 1960 F 57 From: Yovana Greenwood MD PCP: Glenn Vogel Status: REG ER Study: Abdomen/Pelvis without Cont Date of Exam: 02/23/18 Exam# [id number] Ordering Dr: Amy Mcneil DO STUDY: CT ABDOMEN AND PELVIS WITHOUT CONTRAST REASON FOR EXAM: Female, 57 years old. Left flank pain RADIATION DOSAGE (If Supplied By Facility): CTDIvol = ( 24.87 ) mGy, DLP = ( 1096.50 ) mGycm TECHNIQUE: Transaxial 3.75 mm images were obtained from the dome of the diaphragm to the symphysis pubis without oral contrast, and without intravenous contrast. Sagittal and coronal images were reconstructed. This examination is limited for the evaluation of gastrointestinal, solid organs and vascular structures due to the lack of intravenous and oral contrast. Individualized dose optimization techniques were used for this CT. COMPARISON: CT abdomen pelvis 02/18/2018. 09/17/2015. FINDINGS: The visualized lung bases are unremarkable. The visualized portions of the heart are within normal limits. There is decreased attenuation of the enlarged liver consistent with steatosis. There is lobular liver contour. There are surgical clips in the gallbladder fossa consistent with a prior cholecystectomy. Normal spleen. There is fat deposition in the pancreas. Normal bilateral adrenal glands. Stable nonobstructing bilateral small renal calculi. Stable right perirenal stranding.. Small to the moderate left hydronephrosis and hydroureter with perirenal and ureteral stranding and an obstructing calculus of 0.6 cm previously seen in the proximal to mid left ureter currently the left proximal external iliac level in the mid pelvis Normal visualized stomach. Normal small intestine. There is moderate amount of fecal material. There is no obstruction. There are multiple colonic diverticula consistent with diverticulosis. The appendix is visualized and appears normal. There is diffuse atherosclerotic calcification of the abdominal aorta and pelvic arteries, without a demonstrated aneurysm. Normal inferior vena cava. Normal retroperitoneum. Normal urinary bladder. There is absence of the uterus consistent with a prior hysterectomy. Normal abdominal wall. Lower lumbar laminectomy with pedicle fusion. CT/Abdomen/Pelvis without Cont IMPRESSION: Mild to moderate left hydronephrosis and hydroureter with the previously seen proximally left ureteral calculus currently located in the left mid pelvis of 0.6cm. Stable bilateral nonobstructing small renal calculi, hepatomegaly, hepatic steatosis, cholecystectomy, hysterectomy, pancreas involution, atherosclerosis, osseous changes as above. Electronically Signed: Yovana Greenwood MD at 23:25 EST , Service support , CC: Glenn HAND; Amy Mcneil DO Apparatus Cleaner: Signed CBC W/DIFF, AUTOMATED Collected: 02/23/2018 Status: F Source: [place] 10:20 PM [facility] [place] TYPE CODE TESTS RESULT OUT OF RANGE REFERENCE UNITS LAB L100.1000 4.4-11.0 K/mm3 High WBC 12.2 LAB L100.1200 4.2-5.4 M/mm3 Normal RBC 4.38 LAB L100.1300 12.0-15.0 g/dl Normal HGB 15.0 LAB L100.1400 37-47 % Normal HCT 44.2 LAB L100.1500 81-99 fL High MCV 100.9 LAB L100.1600 27.0-32.0 pg High MCH 34.2 LAB L100.1700 32-36 g/gl Normal MCHC 33.9 LAB L100.1810 11.6-14.6 % Normal RDW CV 14.0 LAB L100.1820 35.1-43.9 fl High RDW SD 51.3 LAB L100.1900 150-450 K/mm3 Normal PLT 222 LAB L100.2000 6.2-12.0 fl Normal MPV 10.9 LAB L100.2100 47-70 % Normal NEUT% 64.4 LAB L100.2200 19-41 % Normal LY% 22.4 LAB L100.2300 0-10 % Normal MONO% 9.2 LAB L100.2400 0-5 % Normal EO% 3.4 LAB L100.2500 0-1 % Normal BASO% 0.3 LAB L100.2550 0.0-0.9 % Normal IM GRAN % 0.300 Result Comment: IG% - Immature Granulocytes (promyelocytes, myelocytes and metamyelocytes) > 1% indicates that a LEFT SHIFT is Present. LAB L100.2620 2.0-7.7 X10 3/uL High Absolute Neut 7.9 LAB L100.2720 0.83-4.51 X10 3/ul Normal Absolute Lymph 2.74 Performed By: #### L100.0100 #### [facility] [address] [place], [address] BASIC METABOLIC Collected: 02/23/2018 Status: F Source: [place] PROFILE (BMP) 10:20 PM [facility] [place] TYPE CODE TESTS RESULT OUT OF RANGE REFERENCE UNITS LAB L501.0100 74-106 mg/dL High GLU 233 Result Comment: Glucose result greater than or equal to 200 mg/dL suggests DIABETES MELLITUS per A.D.A. criteria. Please note revised GLUCOSE reference range effective 2017. LAB L501.1000 7-18 mg/dL Normal BUN 16 LAB L501.1100 0.55-1.02 mg/dL High CREAT,SERUM 1.40 Result Comment: The validity of the calculated GFR AND GFRAA in patients over 70 years has not been determined. Clinical correlation is essential. LAB L501.1110 >60 mL/min Low EST GFR 41 Result Comment: Non- GFR Calc LAB L501.1115 >60 mL/min Low EST GFR - AA 49 Result Comment: GFR Calc LAB L501.1255 ml/min Normal Estimated CRCL 31.08 LAB L501.1300 10-20 RATIO Normal BUN/CRE 11.4 LAB L501.2200 8.5-10 mg/dL High .1 CA 10.7 LAB L501.5300 136-14 mmol/L Normal 5 NA 137 LAB L501.5600 3.5-5. mmol/L Normal 1 K 5.1 Result Comment: Slight Hemolysis, Result may be falsely increased. LAB L501.5900 98-107 mmol/L Normal CL 103 LAB L501.6100 21.0-32.0 mmol/L Normal CO2 27.0 LAB L501.6200 5-15 Normal 7 GAP Performed By: #### L500.2500 #### [facility] [address] [place], [address] MAGNESIUM Collected: 02/23/2018 Status: F Source: [place] 10:20 PM [facility] [place] TYPE CODE TESTS RESULT OUT OF RANGE REFERENCE UNITS LAB L501.5200 1.6-2.6 mg/dL Normal MG 2.2 Result Comment: Slight Hemolysis, Result may be falsely increased. Performed By: #### L501.5200 #### [facility] [address] [place], [address] EMERGENCY DEPARTMENT Observed: 02/22/2018 Status: F Source: [place] SUMMARY 12:13 AM [facility] [place] [facility] Medical Records Department [address] [place] [address] Emergency Department Summary 02/18/18 1221 MR#: [id number] Acct: [id number] Name: JACOBY COOK Rep #: [id number] : 1960 57 From: Lars Polk MD PCP: Glenn Vogel Status: DEP ER - ER Visit Summary Date of Service: 02/18/18 Chief Complaint: Left flank pain History of Present Illness: The patient is a 57 F who [facility]. She had abrupt onset of left flank pain at 3 AM. She describes it as a sharp pain senna 10 at worst and 7-10 currently. Is worsened by nothing relieved by nothing. She had nausea but no vomiting. She denies any diarrhea. Last bowel was yesterday. No melena hematochezia. No dysuria frequency. However, she does report she is having hematuria. This is similar to when she had kidney stones in the past Physical Examination: Vitals: Stable. Afebrile. General: Well-nourished and well-developed. Head: Normocephalic atraumatic. Neck: Supple, no lymphadenopathy. No JVD. Nontender. Cardiovascular: Regular rate and rhythm. No murmurs. Respiratory: No respiratory distress. Clear to auscultation bilaterally. Abdominal: Soft, mild left lower quadrant tenderness to palpation, nondistended, normal bowel sounds. No guarding, rebound, or peritoneal signs. Back: Nontender. No CVA tenderness. Extremities: Nontender, no edema. Skin: Normal color, no rash. Neurologic: Alert and oriented 3. Cranial nerves II through XII are intact. Normal strength and sensation. Psych: Normal affect. Test Results: CBC is more for an H AND H 16.3 and 48.2, lymphs lites of 19. Chem-7 is more for glucose 188 and calcium of 10.7. UA shows no evidence of infection. CT flank shows a 4.5 x 6 mm calculus proximal third of the left ureter. Emergency Department Course and Treatment: Patient had an IV placed. She was treated Toradol, morphine, and Zofran IV. She is resting comfortably. Treatment Plan: Patient will be discharged with naproxen and Zofran. States that she cannot have any further pain medications at home because she is in pain management. She will be instructed to follow-up Dr. Mcmullen in 1 week if not improving. Return to the emergency department for any worsening symptoms. Disposition: To home in improved and stable condition. Impression: 1. Left ureterolithiasis. This note was generated with Green[employer] Reality dictation software. It may contain incorrect words, spelling, and punctuation that were not noted in review of the chart prior to signing ED Disposition - Plan for ED Patient: Disposition: Home or Assisted Living Chief Complaint: Flank Pain Instructions: ED Stone Renal W Colic Prescriptions: Ondansetron [Zofran Odt] 4 mg PO Q8H PRN PRN #10 tablet PRN Reason: Nausea Naproxen [Naprosyn] 500 mg PO BID #14 tablet Referrals: Sandeep Mcmullen MD [STAFF PHYSICIAN] - 1 Week if not improving What to do if you have Problems For any increased pain, shortness of breath, bleeding, nausea or vomiting, chest pain, or any unexpected problems, contact your Primary Care Provider. Call [facility] ([phone]) or report to the closest Emergency Room. Call 911 if necessary. 02/22/18 0013 <Electronically signed by Lars Polk MD> Date Lars Polk MD Cosigner Signature (If Indicated): Date CC: Glenn HAND 12 LEAD ELECTROCARDIOGRAM Observed: 02/20/2018 Status: F Source: [place] 1:54 PM [facility] [place] [facility] Cardiovascular Services [address] [place] [address] 12 Lead EKG 02/19/18 1021 MR#: [id number] Acct: [id number] Name: JACOBY COOK Rep #: [id number] : 1960 57 From: Akshat Sarmiento MD Attending Dr: Glenn Vogel Status: REG CLI Ordering Dr: Glenn Plascencia ENTERPRISE SYSTEMS ADMINISTRATOR-C Date: 02/19/18 Location: [facility] Sex: F C Admitted: Test Reason : DM2 Blood Pressure : / mmHG Vent. Rate : 081 BPM Atrial Rate : 081 BPM P-R Int : 174 ms QRS Dur : 106 ms QT Int : 368 ms P-R-T Axes : 036 -55 -09 degrees QTc Int : 427 ms Normal sinus rhythm Left anterior fascicular block Nonspecific T wave abnormality Poor R wave progression Abnormal ECG Confirmed by GUILLERMINA DEUTSCH, AKSHAT ([id number]), online content editor JESSY DAWN ([id number]) on 02/20/2018 1:54:09 PM Referred By: Glenn HAND Confirmed By:AKSHAT SARMIENTO MD 02/20/18 0868 Date Akshat Sarmiento MD CC: Glenn HAND Signed CBC AND DIFFERENTIAL Collected: 02/19/2018 Status: F Source: [place] 9:45 AM CLINIC REFERENCE REPOSITORY TYPE CODE TESTS RESULT OUT OF REFERENCE UNITS RANGE LAB WBC(LOINC) 3.70-11.00 k/uL WBC 10.74 LAB RBC(LOINC) 3.90-5.20 m/uL RBC 4.19 LAB HGB(LOINC) 11.5-15.5 g/dL Hemoglobin 13.9 LAB HCT(LOINC) 36.0-46.0 % Hematocrit 43.5 LAB MCV(LOINC) 80.0-100.0 fL MCV High 103.8 LAB MCH(LOINC) 26.0-34.0 pG MCH 33.2 LAB MCHC(LOINC 30.5-36.0 g/dL ) MCHC 32.0 LAB RDWCV(LOIN 11.5-15.0 % C) RDW-CV 14.6 LAB PLTCT(LOIN 150-400 k/uL C) Platelet Count 171 LAB MPV(LOINC) 9.0-12.7 fL MPV 11.8 LAB ANEUT(LOIN % C) Neut% 59.2 LAB AANEUT(PATRICIO 1.45-7.50 k/uL NC) Abs Neut 6.36 LAB ALYMP(LOIN % C) Lymph% 28.3 LAB AALYMP(PATRICIO 1.00-4.00 k/uL NC) Abs Lymph 3.04 LAB AMONO(LOIN % C) [place]% 9.0 LAB AAMONO(PATRICIO <0.87 k/uL NC) Abs [place] High 0.97 LAB AEOS(LOINC % ) Eosin% 2.9 LAB AAEOS(LOIN <0.46 k/uL C) Abs Eosin 0.31 LAB ABASO(LOIN % C) Baso% 0.6 LAB AABASO(PATRICIO <0.11 k/uL NC) Abs Baso 0.06 LAB AUNRBC(PATRICIO 0 /100 WBC NC) NRBCs 0.0 LAB ABNRBC(PATRICIO <0.01 k/uL NC) Absolute nRBC <0.01 LAB DTYP(LOINC ) DTYPE ADIFF Performed By: #### CBCDIF, CMP, LIPB, HBA1C, VITD #### [facility] Routine Lab [address] [facility] [place] [address] COMP METABOLIC PANEL Collected: 02/19/2018 Status: F Source: [place] 9:45 AM CLINIC REFERENCE REPOSITORY TYPE CODE TESTS RESULT OUT OF REFERENCE UNITS RANGE LAB TP(LOINC) 6.3-8.0 g/dL Protein, Total 6.7 LAB ALB(LOINC) 3.9-4.9 g/dL Low Albumin 3.8 LAB CA(LOINC) 8.5-10.2 mg/dL Calcium, High Total 11.3 LAB TBIL(LOINC 0.2-1.3 mg/dL ) Bilirubin, Total 0.2 LAB ALKP(LOINC 34-123 U/L ) Alkaline Phosphatase 44 LAB AST(LOINC) 13-35 U/L AST 35 LAB GLU(LOINC) 74-99 mg/dL Glucose High 200 LAB BUN(LOINC) 7-21 mg/dL BUN High 23 LAB CRET(LOINC 0.58-0.96 mg/dL ) Creatinine High 1.26 LAB NA(LOINC) 136-144 mmol/L Sodium 138 LAB K(LOINC) 3.7-5.1 mmol/L Potassium 4.8 LAB CL(LOINC) 97-105 mmol/L Chloride 100 LAB CO2(LOINC) 22-30 mmol/L CO2 25 LAB AGAP(LOINC 9-18 mmol/L ) Anion Gap 13 LAB ALT(LOINC) 7-38 U/L ALT High 51 LAB GFRAA(LOIN C) eGFR- 53 Amer. LAB GFRNAA(PATRICIO . NC) eGFR-All Other Races 43 Performed By: #### CBCDIF, CMP, LIPB, HBA1C, VITD #### [facility] Routine Lab [address] [place], [place] [address] LIPID PANEL, BASIC Collected: 02/19/2018 Status: F Source: [place] 9:45 AM CLINIC REFERENCE REPOSITORY TYPE CODE TESTS RESULT OUT OF REFERENCE UNITS RANGE LAB CHOL(LOINC <200 mg/dL ) Cholesterol 116 LAB TRIGLY(PATRICIO <150 mg/dL NC) Triglyceride High 155 LAB HDL(LOINC) >39 mg/dL Low HDL-Cholesterol 37 LAB LDL(LOINC) <100 mg/dL LDL-Cholesterol 48 LAB NONHDL(PATRICIO <130 mg/dL NC) Non HDL Cholesterol 79 LAB FT(LOINC) hrs Fasting Time 12 LAB VLDL(LOINC <30 mg/dL ) VLDL High Cholesterol 31 LAB TCHDL(LOIN <5.10 C) TC:HDL Ratio 3.14 LAB LDLHDL(PATRICIO <2.54 NC) LDL:HDL Ratio 1.30 Performed By: #### CBCDIF, CMP, LIPB, HBA1C, VITD #### [facility] Routine Lab [address] [place] [address] HEMOGLOBIN A1C Collected: 02/19/2018 Status: F Source: [place] 9:45 AM CLINIC REFERENCE REPOSITORY TYPE CODE TESTS RESULT OUT OF REFERENCE UNITS RANGE LAB HGBA1C(PATRICIO 4.3-5.6 % NC) High Hemoglobin A1c 8.0 LAB HBA0(LOINC mg/dL ) Est. Average Glucose 183 Performed By: #### CBCDIF, CMP, LIPB, HBA1C, VITD #### [facility] Routine Lab [address] [address] VITAMIN D 25 HYDROXY Collected: 02/19/2018 Status: F Source: [place] 9:[address] [facility] REFERENCE REPOSITORY TYPE CODE TESTS RESULT OUT OF REFERENCE UNITS RANGE LAB VITD(LOINC) 31.0-80.0 ng/mL Vitamin D 25 37.6 Hydroxy Performed By: #### CBCDIF, CMP, LIPB, HBA1C, VITD #### [facility] Routine Lab [address] [address] URINALYSIS, COMPLETE Collected: 02/18/2018 Status: F Source: [place] 11:20 AM [facility] [place] Order Comment: How was Urine Obtained? SALES SERVICE COORDINATOR TO SPECIFY TYPE CODE TESTS RESULT OUT OF RANGE REFERENCE UNITS LAB L400.3000 Yellow COLOR Normal Yellow LAB L400.3050 Clear Normal CLARITY Sl. Cloudy LAB L400.3200 Normal mg/dl Normal GLUCOSE, UR Normal LAB L400.3300 Negative mg/dL Normal BILIRUBIN URINE Negative LAB L400.3400 Negative mg/dl Normal KETONE UR Negative LAB L400.3465 1.002-1.030 Normal SP.GR. DIPSTX 1.020 LAB L400.3550 5.0 - 8.0 pH UR Normal 6.0 LAB L400.3600 Negative mg/dl PROT Normal DIPSTX Negative LAB L400.3700 Normal mg/dl Normal UROBILI Normal LAB L400.3750 Negative Normal NITRITE UR Negative LAB L400.3780 Negative /ul High 10 OCCULT BLOOD-UR LAB L400.3800 Negative /ul High LEUK ESTERASE 100 LAB L400.4050 0-5 /hpf WBC Normal 0-5 SEEN LAB L400.4100 0-5 /hpf Normal RBC-UA 0-5 SEEN LAB L400.4150 5-10 /hpf SQUAM Normal EPI 0-5 SEEN LAB L400.4300 None Seen /hpf Normal BACTERIA RARE LAB L400.4350 <or=2+ /hpf 0 Normal MUCUS, URINE SEEN Performed By: #### L400.0001 #### [facility] [address] [place], [address] CBC W/DIFF, AUTOMATED Collected: 02/18/2018 Status: F Source: [place] 10:20 AM [facility] [place] TYPE CODE TESTS RESULT OUT OF RANGE REFERENCE UNITS LAB L100.1000 4.4-11.0 K/mm3 Normal WBC 10.3 LAB L100.1200 4.2-5.4 M/mm3 Normal RBC 4.72 LAB L100.1300 12.0-15.0 g/dl High HGB 16.3 LAB L100.1400 37-47 % High HCT 48.2 LAB L100.1500 81-99 fL High MCV 102.1 LAB L100.1600 27.0-32.0 pg High MCH 34.5 LAB L100.1700 32-36 g/gl Normal MCHC 33.8 LAB L100.1810 11.6-14.6 % Normal RDW CV 14.3 LAB L100.1820 35.1-43.9 fl High RDW SD 53.5 LAB L100.1900 150-450 K/mm3 Normal PLT 180 LAB L100.2000 6.2-12.0 fl Normal MPV 10.7 LAB L100.2100 47-70 % High NEUT% 70.4 LAB L100.2200 19-41 % Low LY% 18.8 LAB L100.2300 0-10 % Normal MONO% 8.3 LAB L100.2400 0-5 % Normal EO% 1.9 LAB L100.2500 0-1 % Normal BASO% 0.3 LAB L100.2550 0.0-0.9 % Normal IM GRAN % 0.300 Result Comment: IG% - Immature Granulocytes (promyelocytes, myelocytes and metamyelocytes) > 1% indicates that a LEFT SHIFT is Present. LAB L100.2620 2.0-7.7 X10 3/uL Normal Absolute Neut 7.3 LAB L100.2720 0.83-4.51 X10 3/ul Normal Absolute Lymph 1.94 Performed By: #### L100.0100 #### [facility] [address], [address] BASIC METABOLIC Collected: 02/18/2018 Status: F Source: [place] PROFILE (BMP) 10:20 AM [facility] [place] TYPE CODE TESTS RESULT OUT OF RANGE REFERENCE UNITS LAB L501.0100 74-106 mg/dL High GLU 188 Result Comment: Fasting Glucose result greater than or equal to 126 mg/dL suggests DIABETES MELLITUS per A.D.A. criteria. Please note revised GLUCOSE reference range effective 2017. LAB L501.1000 7-18 mg/dL Normal BUN 18 LAB L501.1100 0.55-1.02 mg/dL Normal CREAT,SERUM 0.98 Result Comment: The validity of the calculated GFR AND GFRAA in patients over 70 years has not been determined. Clinical correlation is essential. LAB L501.1110 >60 mL/min Normal EST GFR 61 Result Comment: Non- GFR Calc LAB L501.1115 >60 mL/min Normal EST GFR - AA 74 Result Comment: GFR Calc LAB L501.1255 ml/min Normal Estimated CRCL 48.89 LAB L501.1300 10-20 RATIO Normal BUN/CRE 18.3 LAB L501.2200 8.5-10 mg/dL High .1 CA 10.7 LAB L501.5300 136-14 mmol/L Normal 5 NA 137 LAB L501.5600 3.5-5. mmol/L Normal 1 K 4.2 LAB L501.5900 98-107 mmol/L Normal CL 101 LAB L501.6100 21.0-3 mmol/L Normal 2.0 CO2 27.0 LAB L501.6200 5-15 Normal GAP 9 Performed By: #### L500.2500 #### [facility] [address], [address] ABDOMEN/PELVIS WITHOUT Observed: 02/18/2018 Status: F Source: [place] CONT 9:56 AM [facility] [place] [facility] Imaging Services [address] [place] [address] Abdomen/Pelvis without Cont MR#: [id number] Acct: [id number] Name: JACOBY COOK Rep #: [id number] : 1960 F 57 From: Pablo Muñoz MD PCP: Glenn Vogel Status: REG ER Study: Abdomen/Pelvis without Cont Date of Exam: 02/18/18 Exam# [id number] Ordering Dr: Lars Polk MD STUDY: CT ABDOMEN AND PELVIS WITHOUT CONTRAST REASON FOR EXAM: Female, 57 years old. Left flank pain, history of kidney stones RADIATION DOSAGE (If Supplied By Facility): CTDIvol = ( 13.84 ) mGy, DLP = ( 653.37 ) mGycm TECHNIQUE: Transaxial images were obtained from the dome of the diaphragm to the symphysis pubis without oral contrast, and without intravenous contrast. Sagittal and coronal images were reconstructed. Individualized dose optimization techniques were used for this CT. COMPARISON: CT abdomen and pelvis 09/17/2015, 03/30/2015, 04/27/2014. FINDINGS: Body wall soft tissues: No acute process. Osseous structures: Scoliosis. Mild multilevel lumbar spondylosis contributing to mild foraminal narrowing at multiple levels L3-L4, L4-L5. Posterior shreya and pedicle screw fixation with laminectomy and interbody spacer at L5-S1. Mild hip DJD bilaterally. Inferior chest: Small focus of coronary calcium visible in the RCA. No cardiomegaly. Normal distal esophagus. Lung bases clear. Hepatobiliary: Hepatic steatosis with hepatomegaly, craniocaudal right liver 19.3 cm. Gallbladder surgically absent. Nondilated biliary tree. Pancreas: Moderately severe pancreatic atrophy. There are 3 borderline enlarged lymph nodes adjacent to the michelle hepatis, and head of the pancreas, the largest measuring short axis I cm. Spleen: Normal. Adrenal glands: Normal. Urogenital: 3 mm nonobstructing calyceal calculus of the right kidney superior pole calyx. No right hydronephrosis or hydroureter. Acute left hydronephrosis with perinephric stranding, plethora of the kidney, hydroureter, 4.5 x 6 mm calculus in the proximal 3rd of the ureter. Single punctate retained calyceal calculus, less than 2 mm, nonobstructing. No distal ureteral calculi. Normal urinary bladder. Uterus absent. No adnexal mass or cyst. Pelvic floor and sidewalls and retroperitoneum: No mass or adenopathy. Vasculature: No acute process. Stomach: No acute process. Small bowel and mesentery: No acute process. Large bowel: The appendix is not visible. Large bowel and rectum normal. Free fluid or free air: None. CT/Abdomen/Pelvis without Cont IMPRESSION: Acute urinary calculus passage on the left, with hydronephrosis and hydroureter. The calculus measures approximately 4.5 x 6 mm and lies within the proximal 3rd of the left ureter. There are single punctate nonobstructing calculi retained within each kidney. Hepatic steatosis with hepatomegaly. Prominent pancreatic atrophy. Electronically Signed: Pablo Muñoz MD at 11:10 EST Tel , Service support , CC: Glenn HAND; Lars Polk MD Apparatus Cleaner: Signed DISCHARGE INSTRUCTION Observed: 12/16/2017 Status: F Source: [place] 7:39 PM [facility] [place] [facility] Medical Records Department [address] [place] [address] Discharge Instruction 12/16/171937 MR#: [id number] Acct: [id number] Name: JACOBY COOK Rep #: [id number] : 1960 57 From: Iris Arias MD PCP: Glenn Vogel Status: REG ER ED Disposition - Plan for ED Patient: Chief Complaint: Upper Extremity Injury Instructions: ED Sprain Shoulder Referrals: Glenn Plascencia, MIKHAIL-C [Primary Care Provider] - What to do if you have Problems For any increased pain, shortness of breath, bleeding, nausea or vomiting, chest pain, or any unexpected problems, contact your Primary Care Provider. Call [facility] ([phone]) or report to the closest Emergency Room. Call 911 if necessary. 12/16/171938 <Electronically signed by Iris Arias MD> Date Iris Arias MD Cosigner Signature (If Indicated): Date CC: Glenn HAND EMERGENCY DEPARTMENT Observed: 12/16/2017 Status: F Source: [place] SUMMARY 7:38 PM [facility] [place] [facility] Medical Records Department [address] [place] [address] Emergency Department Summary 12/16/17 1840 MR#: [id number] Acct: [id number] Name: JACOBY COOK Rep #: [id number] : 1960 57 From: Iris Arias MD PCP: Glenn Vogel Status: REG ER - ER Visit Summary Date of Service: 12/16/17 Chief Complaint: Left shoulder pain History of Present Illness: The patient is a 57 F presenting with left shoulder pain. She states it started on Sunday. She does not recall any specific injury or lifting. She states she had similar pain in June 2017. At that time she had a cortisone injection which improved her pain. Pain is worse with movement. She denies chest pain or shortness of breath. She is currently in pain management for her chronic back pain. She is on Vicodin, muscle relaxer, and just finished a course of prednisone. She denies fever or other complaints. Physical Examination: Vitals are stable. Patient is afebrile. Alert no acute distress. HEENT exam is unremarkable. Neck is supple. Lungs are clear and equal bilaterally. Heart is regular rate and rhythm. Extremities diffuse left shoulder tenderness with painful range of motion. Neurovascular intact distally. No erythema or warmth. Skin is warm and dry. No focal neurologic deficit. Remainder of exam is unremarkable. Emergency Department Course and Treatment: Patient is given morphine, Zofran IM. X-ray left shoulder shows mild degenerative changes of the left shoulder. On reevaluation, patient is feeling improved. She is advised to follow-up with her orthopedic surgeon and pain management. Advised return to ED for worsening complaints. Disposition: Discharge home Impression: Left shoulder pain This note was generated with [employer] dictation software. It may contain incorrect words, spelling, and punctuation that were not noted in review of the chart prior to signing ED Disposition - Plan for ED Patient: Chief Complaint: Upper Extremity Injury Referrals: Glenn Plascencia, ENTERPRISE SYSTEMS ADMINISTRATOR-C [Primary Care Provider] - What to do if you have Problems For any increased pain, shortness of breath, bleeding, nausea or vomiting, chest pain, or any unexpected problems, contact your Primary Care Provider. Call [facility] ([phone]) or report to the closest Emergency Room. Call 911 if necessary. 12/16/171937 <Electronically signed by Iris Arias MD> Date Iris Arias MD Cosigner Signature (If Indicated): Date CC: Glenn HAND SHOULDER MIN 2 VIEWS Observed: 12/16/2017 Status: F Source: [place] 6:38 PM [facility] Imaging Services [address] [address] Shoulder min 2 Views MR#: [id number] Acct: [id number] Name: JACOBY COOK Rep #: [id number] : 1960 F 57 From: Adrian Munoz DO PCP: Glenn Vogel Status: REG ER Study: Shoulder min 2 Views Date of Exam: 12/16/17 Exam# [id number] Ordering Dr: Iris Arias MD STUDY: X-RAY - LEFT SHOULDER REASON FOR EXAM: Female, 57 years old. Left shoulder pain TECHNIQUE: 4 view(s) of the shoulder. COMPARISON: None. FINDINGS: There is mild degenerative arthrosis of the glenohumeral articulation. There is degenerative arthrosis of the acromioclavicular joint without inferior osseous spur formation. Normal acromion. Normal humeral head and visualized proximal humerus. The soft tissue structures are unremarkable. Normal visualized pulmonary apex. RAD/Shoulder min 2 Views IMPRESSION: Mild degenerative changes of the left shoulder Electronically Signed: Adrian Munoz DO at 19:22 EST Tel , Service support , CC: Iris Arias MD; Glenn HAND Apparatus Cleaner: Signed CBC AND DIFFERENTIAL Collected: 11/20/2017 Status: F Source: [place] 8:40 AM CLINIC REFERENCE REPOSITORY TYPE CODE TESTS RESULT OUT OF REFERENCE UNITS RANGE LAB WBC(LOINC) 3.70-11.00 k/uL WBC 7.92 LAB RBC(LOINC) 3.90-5.20 m/uL RBC 5.03 LAB HGB(LOINC) 11.5-15.5 g/dL High Hemoglobin 16.7 LAB HCT(LOINC) 36.0-46.0 % High Hematocrit 50.9 LAB MCV(LOINC) 80.0-100.0 fL MCV High 101.2 LAB MCH(LOINC) 26.0-34.0 pG MCH 33.2 LAB MCHC(LOINC 30.5-36.0 g/dL ) MCHC 32.8 LAB RDWCV(LOIN 11.5-15.0 % C) RDW-CV 13.2 LAB PLTCT(LOIN 150-400 k/uL C) Platelet Count 197 LAB MPV(LOINC) 9.0-12.7 fL MPV 12.1 LAB ANEUT(LOIN % C) Neut% 43.1 LAB AANEUT(PATRICIO 1.45-7.50 k/uL NC) Abs Neut 3.39 LAB ALYMP(LOIN % C) Lymph% 45.2 LAB AALYMP(PATRICIO 1.00-4.00 k/uL NC) Abs Lymph 3.58 LAB AMONO(LOIN % C) [place]% 8.3 LAB AAMONO(PATRICIO <0.87 k/uL NC) Abs [place] 0.66 LAB AEOS(LOINC % ) Eosin% 2.8 LAB AAEOS(LOIN <0.46 k/uL C) Abs Eosin 0.22 LAB ABASO(LOIN % C) Baso% 0.6 LAB AABASO(PATRICIO <0.11 k/uL NC) Abs Baso 0.05 LAB AUNRBC(PATRICIO 0 /100 WBC NC) NRBCs 0.0 LAB ABNRBC(PATRICIO <0.01 k/uL NC) Absolute nRBC <0.01 LAB DTYP(LOINC ) DTYPE ADIFF Performed By: #### CBCDIF, CMP, LIPB, TSH, FT4, HBA1C, VITD #### [facility] Routine Lab [address] [place], [place] [address] COMP METABOLIC PANEL Collected: 11/20/2017 Status: F Source: [place] 8:40 AM CLINIC REFERENCE REPOSITORY TYPE CODE TESTS RESULT OUT OF REFERENCE UNITS RANGE LAB TP(LOINC) 6.3-8.0 g/dL Protein, Total 7.6 LAB ALB(LOINC) 3.9-4.9 g/dL Albumin 4.2 LAB CA(LOINC) 8.5-10.2 mg/dL Calcium, High Total 11.8 LAB TBIL(LOINC 0.2-1.3 mg/dL ) Bilirubin, Total 0.4 LAB ALKP(LOINC 34-123 U/L ) Alkaline Phosphatase 61 LAB AST(LOINC) 13-35 U/L AST High 51 LAB GLU(LOINC) 74-99 mg/dL Glucose High 192 LAB BUN(LOINC) 7-21 mg/dL BUN 17 LAB CRET(LOINC 0.58-0.96 mg/dL ) Creatinine 0.85 LAB NA(LOINC) 136-144 mmol/L Sodium 140 LAB K(LOINC) 3.7-5.1 mmol/L Potassium 5.1 LAB CL(LOINC) 97-105 mmol/L Low Chloride 96 LAB CO2(LOINC) 22-30 mmol/L CO2 High 31 LAB AGAP(LOINC 9-18 mmol/L ) Anion Gap 13 LAB ALT(LOINC) 7-38 U/L ALT High 43 LAB GFRAA(LOIN C) eGFR- >60 Amer. LAB GFRNAA(PATRICIO . NC) eGFR-All Other Races >60 Performed By: #### CBCDIF, CMP, LIPB, TSH, FT4, HBA1C, VITD #### [facility] Routine Lab [address], [place] [address] LIPID PANEL, BASIC Collected: 11/20/2017 Status: F Source: [place] 8:40 AM CLINIC REFERENCE REPOSITORY TYPE CODE TESTS RESULT OUT OF REFERENCE UNITS RANGE LAB CHOL(LOINC <200 mg/dL ) Cholesterol 139 LAB TRIGLY(PATRICIO <150 mg/dL NC) Triglyceride High 177 LAB HDL(LOINC) >39 mg/dL Low HDL-Cholesterol 39 LAB LDL(LOINC) <100 mg/dL LDL-Cholesterol 65 LAB NONHDL(PATRICIO <130 mg/dL NC) Non HDL Cholesterol 100 LAB FT(LOINC) hrs Fasting Time 12 LAB VLDL(LOINC <30 mg/dL ) VLDL High Cholesterol 35 LAB TCHDL(LOIN <5.10 C) TC:HDL Ratio 3.56 LAB LDLHDL(PATRICIO <2.54 NC) LDL:HDL Ratio 1.67 Performed By: #### CBCDIF, CMP, LIPB, TSH, FT4, HBA1C, VITD #### [facility] Routine Lab [address] [place], [place] [address] TSH Collected: 11/20/2017 Status: F Source: [place] 8:40 AM CLINIC REFERENCE REPOSITORY TYPE CODE TESTS RESULT OUT OF RANGE REFERENCE UNITS LAB TSH(LOINC) 0.400-5.500 uU/mL TSH 4.100 Performed By: #### CBCDIF, CMP, LIPB, TSH, FT4, HBA1C, VITD #### [facility] Routine Lab [address] [place] [address] FREE T4 Collected: 11/20/2017 Status: F Source: [place] 8:[address] [facility] REFERENCE REPOSITORY TYPE CODE TESTS RESULT OUT OF RANGE REFERENCE UNITS LAB FT4(LOINC) 0.9-1.7 ng/dL Free T4 1.4 Performed By: #### CBCDIF, CMP, LIPB, TSH, FT4, HBA1C, VITD #### [facility] Routine Lab [address] [place] [address] HEMOGLOBIN A1C Collected: 11/20/2017 Status: F Source: [place] 8:[address] [facility] REFERENCE REPOSITORY TYPE CODE TESTS RESULT OUT OF REFERENCE UNITS RANGE LAB HGBA1C(PATRICIO 4.3-5.6 % NC) High Hemoglobin A1c 9.4 LAB HBA0(LOINC mg/dL ) Est. Average Glucose 223 Performed By: #### CBCDIF, CMP, LIPB, TSH, FT4, HBA1C, VITD #### [facility] Routine Lab [address] [place] [address] VITAMIN D 25 HYDROXY Collected: 11/20/2017 Status: F Source: [place] 8:[address] [facility] REFERENCE REPOSITORY TYPE CODE TESTS RESULT OUT OF REFERENCE UNITS RANGE LAB VITD(LOINC) 31.0-80.0 ng/mL Vitamin D 25 58.7 Hydroxy Performed By: #### CBCDIF, CMP, LIPB, TSH, FT4, HBA1C, VITD #### [facility] Routine Lab [address] [place] [address] ALBUMIN/CREAT RATIO Collected: 11/20/2017 Status: F Source: [place] 8:[address] [facility] REFERENCE REPOSITORY TYPE CODE TESTS RESULT OUT OF REFERENCE UNITS RANGE LAB UCRR(LOINC) 20-300 mg/dL Creatinine,Uri 207.6 ne,Ran LAB UALBR(LOINC 0.0-23.0 mg/L ) High Albumin Urine 30.4 Random LAB UALBCR(LOIN 0-30 mg/g C) Albumin/Creat 15 Ratio Performed By: #### UACR #### [facility] Routine Lab [address] [place], [place] [address] CBC AND DIFFERENTIAL Collected: 08/10/2017 Status: F Source: [place] 8:12 PM CLINIC REFERENCE REPOSITORY TYPE CODE TESTS RESULT OUT OF REFERENCE UNITS RANGE LAB WBC(LOINC) 3.70-11.00 k/uL WBC 7.78 LAB RBC(LOINC) 3.90-5.20 m/uL RBC 4.66 LAB HGB(LOINC) 11.5-15.5 g/dL Hemoglobin 15.5 LAB HCT(LOINC) 36.0-46.0 % High Hematocrit 46.5 LAB MCV(LOINC) 80.0-100.0 fL MCV 99.8 LAB MCH(LOINC) 26.0-34.0 pG MCH 33.3 LAB MCHC(LOINC 30.5-36.0 g/dL ) MCHC 33.3 LAB RDWCV(LOIN 11.5-15.0 % C) RDW-CV 14.2 LAB PLTCT(LOIN 150-400 k/uL C) Platelet Count 236 LAB MPV(LOINC) 9.0-12.7 fL MPV 11.8 LAB ANEUT(LOIN % C) Neut% 42.6 LAB AANEUT(PATRICIO 1.45-7.50 k/uL NC) Abs Neut 3.31 LAB ALYMP(LOIN % C) Lymph% 46.0 LAB AALYMP(PATRICIO 1.00-4.00 k/uL NC) Abs Lymph 3.58 LAB AMONO(LOIN % C) [place]% 7.2 LAB AAMONO(PATRICIO <0.87 k/uL NC) Abs [place] 0.56 LAB AEOS(LOINC % ) Eosin% 3.3 LAB AAEOS(LOIN <0.46 k/uL C) Abs Eosin 0.26 LAB ABASO(LOIN % C) Baso% 0.9 LAB AABASO(PATRICIO <0.11 k/uL NC) Abs Baso 0.07 LAB AUNRBC(PATRICIO 0 /100 WBC NC) NRBCs 0.0 LAB ABNRBC(PATRICIO <0.01 k/uL NC) Absolute nRBC <0.01 LAB DTYP(LOINC ) DTYPE ADIFF Performed By: #### CBCDIF, CMP, LIPB, TSH, FT4, HBA1C, VITD #### [facility] Routine Lab [address] [place], [place] [address] COMP METABOLIC PANEL Collected: 08/10/2017 Status: F Source: [place] 8:12 PM CLINIC REFERENCE REPOSITORY TYPE CODE TESTS RESULT OUT OF REFERENCE UNITS RANGE LAB TP(LOINC) 6.3-8.0 g/dL Protein, Total 6.7 LAB ALB(LOINC) 3.9-4.9 g/dL Albumin 4.0 LAB CA(LOINC) 8.5-10.2 mg/dL Calcium, High Total 10.9 LAB TBIL(LOINC 0.2-1.3 mg/dL ) Bilirubin, Total 0.3 LAB ALKP(LOINC 32-117 U/L ) Alkaline Phosphatase 51 LAB AST(LOINC) 13-35 U/L AST High 56 LAB GLU(LOINC) 74-99 mg/dL Glucose High 150 LAB BUN(LOINC) 7-21 mg/dL BUN 18 LAB CRET(LOINC 0.58-0.96 mg/dL ) Creatinine 0.76 LAB NA(LOINC) 136-144 mmol/L Sodium 141 LAB K(LOINC) 3.7-5.1 mmol/L Potassium 4.5 LAB CL(LOINC) 97-105 mmol/L Chloride 101 LAB CO2(LOINC) 22-30 mmol/L CO2 28 LAB AGAP(LOINC 9-18 mmol/L ) Anion Gap 12 LAB ALT(LOINC) 7-38 U/L ALT High 59 LAB GFRAA(LOIN C) eGFR- >60 Amer. LAB GFRNAA(PATRICIO . NC) eGFR-All Other Races >60 Performed By: #### CBCDIF, CMP, LIPB, TSH, FT4, HBA1C, VITD #### [facility] Routine Lab [address] [place], [place] [address] LIPID PANEL, BASIC Collected: 08/10/2017 Status: F Source: [place] 8:12 PM CLINIC REFERENCE REPOSITORY TYPE CODE TESTS RESULT OUT OF REFERENCE UNITS RANGE LAB CHOL(LOINC <200 mg/dL ) Cholesterol 170 LAB TRIGLY(PATRICIO <150 mg/dL NC) Triglyceride High 220 LAB HDL(LOINC) >39 mg/dL HDL-Cholesterol 40 LAB LDL(LOINC) <100 mg/dL LDL-Cholesterol 86 LAB NONHDL(PATRICIO <130 mg/dL NC) Non HDL High Cholesterol 130 LAB FT(LOINC) hrs Fasting Time 12 LAB VLDL(LOINC <30 mg/dL ) VLDL High Cholesterol 44 LAB TCHDL(LOIN <5.10 C) TC:HDL Ratio 4.25 LAB LDLHDL(PATRICIO <2.54 NC) LDL:HDL Ratio 2.15 Performed By: #### CBCDIF, CMP, LIPB, TSH, FT4, HBA1C, VITD #### [facility] Routine Lab [address] [place] [address] TSH Collected: 08/10/2017 Status: F Source: [place] 8:12 PM CLINIC REFERENCE REPOSITORY TYPE CODE TESTS RESULT OUT OF RANGE REFERENCE UNITS LAB TSH(LOINC) 0.400-5.500 uU/mL TSH 3.090 Performed By: #### CBCDIF, CMP, LIPB, TSH, FT4, HBA1C, VITD #### [facility] Routine Lab [address] [place] [address] FREE T4 Collected: 08/10/2017 Status: F Source: [place] 8:12 PM CLINIC REFERENCE REPOSITORY TYPE CODE TESTS RESULT OUT OF RANGE REFERENCE UNITS LAB FT4(LOINC) 0.9-1.7 ng/dL Free T4 1.4 Performed By: #### CBCDIF, CMP, LIPB, TSH, FT4, HBA1C, VITD #### [facility] Routine Lab [address] [place] [address] HEMOGLOBIN A1C Collected: 08/10/2017 Status: F Source: [place] 8:12 PM CLINIC REFERENCE REPOSITORY TYPE CODE TESTS RESULT OUT OF REFERENCE UNITS RANGE LAB HGBA1C(PATRICIO 4.3-5.6 % NC) High Hemoglobin A1c 7.5 LAB HBA0(LOINC mg/dL ) Est. Average Glucose 169 Performed By: #### CBCDIF, CMP, LIPB, TSH, FT4, HBA1C, VITD #### [facility] Routine Lab [address] [place], [place] [address] VITAMIN D 25 HYDROXY Collected: 08/10/2017 Status: F Source: [place] 8:12 PM CLINIC REFERENCE REPOSITORY TYPE CODE TESTS RESULT OUT OF REFERENCE UNITS RANGE LAB VITD(LOINC) 31.0-80.0 ng/mL Low Vitamin D 25 30.7 Hydroxy Performed By: #### CBCDIF, CMP, LIPB, TSH, FT4, HBA1C, VITD #### [facility] Routine Lab [address] [place], [place] [address] 12 LEAD ELECTROCARDIOGRAM Observed: 06/13/2017 Status: F Source: [place] 2:33 PM [facility] [place] Cardiovascular Services [address] [place] [address] 12 Lead EKG 06/09/17521 MR#: [id number] Acct: [id number] Name: JACOBY COOK Rep #: [id number] : 1960 56 From: Rafy Chen MD Attending Dr: Sumi Mead MD Status: DIS TAMMIE Ordering Dr: Dilshad Montanez MD Date: 06/09/17 Location: [facility] Sex: F C Admitted: 06/08/17 Test Reason : AM EKG Blood Pressure : / mmHG Vent. Rate : 062 BPM Atrial Rate : 062 BPM P-R Int : 188 ms QRS Dur : 104 ms QT Int : 420 ms P-R-T Axes : 036 -54 -06 degrees QTc Int : 426 ms Normal sinus rhythm Left axis deviation Nonspecific T wave abnormality Abnormal ECG When compared with ECG of 08-JUN-2017 17:18, MANUAL COMPARISON REQUIRED, DATA IS UNCONFIRMED Confirmed by GUSTAVO DEUTSCH, RAFY ([id number]), online content editor JESSY DAWN ([id number]) on 06/13/2017 2:33:29 PM Referred By: DR MONTANEZ Confirmed By:RAFY CHEN MD 06/13/17 1433 Date Rafy Chen MD CC: Sumi Mead MD; Glenn HAND; Dilshad Montanez MD Signed XR SHOULDER MINIMUM 2 Observed: 06/12/2017 Status: F Source: [facility] VIEWS LEFT 8:25 AM [facility] [place] REPOSITORY ORIGINAL XR SHOULDER MINIMUM 2 VIEWS LEFT CLINICAL STATEMENT: shoulder pain, Shoulder pain for one month, getting worse. No known injury Comparison: 10/24/2015 FINDINGS: No fracture or dislocation of the shoulder is seen. The coracoclavicular and acromioclavicular relationships are maintained. The humerus appears appropriately seated within the glenoid. The in cluded thoracic structures are unremarkable. IMPRESSION: No acute fracture or subluxation. I have personally reviewed the images of this examination and agree with the resident's findings and interpretation. Interpreted By: Juliet Deluca MD Preliminary Report By: Calixto Pritchard MD Electronically Signed By: Juliet Deluca MD Dictated Date: 06/12/2017 8:32:17 AM Prelim Date: 06/12/2017 8:33:20 AM Sign Date: 06/12/2017 8:48:15 AM 12 LEAD ELECTROCARDIOGRAM Observed: 06/11/2017 Status: F Source: [place] 2:14 PM [facility] Cardiovascular Services [address] [place] [address] 12 Lead EKG 06/08/17 1718 MR#: [id number] Acct: [id number] Name: JACOBY COOK Rep #: [id number] : 1960 56 From: Rafy Chen MD Attending Dr: Sumi Mead MD Status: DIS TAMMIE Ordering Dr: Pawel Abdi MD Date: 06/08/17 Location: [facility] Sex: F C Admitted: 06/08/17 Test Reason : CP Blood Pressure : / mmHG Vent. Rate : 083 BPM Atrial Rate : 083 BPM P-R Int : 174 ms QRS Dur : 108 ms QT Int : 386 ms P-R-T Axes : 030 -58 021 degrees QTc Int : 453 ms Normal sinus rhythm Left anterior fascicular block Abnormal ECG Confirmed by RAFY CHEN MD ([id number]), online content editor JESSY DAWN ([id number]) on 06/11/2017 2:13:55 PM Referred By: Confirmed By:RAFY CHEN MD 06/11/17 1414 Date Rafy Chen MD CC: Sumi Mead MD; Glenn HAND; Pawel Abdi MD Signed DISCHARGE SUMMARY Observed: 06/09/2017 Status: F Source: [place] 2:14 PM [facility] Medical Records Department [address] [address] Discharge Summary 06/09/17 1342 MR#: [id number] Acct: [id number] Name: JACOBY COOK Rep #: [id number] : 1960 56 From: Shiraz GUEVARA PCP: Glenn Vogel Status: DIS TAMMIE Y Location: [place] [address] <Shiraz Schneider - Last Filed: 06/09/17 13:42> Discharge Date and Diagnosis Date of Admission: 06/08/17 Date of Discharge: 06/09/17 - Primary Discharge Diagnosis Chest pain - musculoskeletal GERD Nicotine abuse T2DM Obesity COPD - Secondary Discharge Diagnosis Chronic Problems Diabetes mellitus type 2 in obese (Chronic) Hypertension (Chronic) Chronic back pain (Chronic) GERD (gastroesophageal reflux disease) (Chronic) COPD (chronic obstructive pulmonary disease) (Chronic) Hospital Course and Treatment Imaging Results: RAD/Shoulder min 2 Views IMPRESSION: No acute bony pathology of the shoulder. RAD/Chest PA and Lateral IMPRESSION: Normal x-ray examination of the chest. Conclusion: Normal exercise myocardial perfusion stress test at a moderate workload. No clinical angina noted. Preserved ejection fraction. Operations: None Procedures: Stress test Summary of Care Provided: Physical exam on day of discharge: General: Resting comfortably NAD Psych: A/Ox3 normal affect HEENT: [place] AT NC Neck: Supple NT CV: RRR no m/t/r/g/h Resp: CTA Abd: [id number] Soft NT no guarding or rigidity, obese Ext: DP2+= no edema Skin: W/D normal turgor Lymph/Heme: No active bleeding or adenopathy Neuro: CN2-12 intact Hospital course: The patient is a 56 year old F who presented to the ER with chest pain on the left side radiating into her neck and 2 weeks of prior left shoulder pain. She has a hx of t2DM, nicotine abuse, obesity, COPD, arthritis, GERD. In the ER she had negative troponin, negative EKG, and negative chest and shoulder xrays. She is admitted for chest pain workup as she has significant risk factors for coronary disease. She was maintained on telemetry with no events. Troponins were cycled which remained negative. Following morning she has stress test which was negative as well. We also checked her A1c while she was here as her blood sugars were elevated and it demonstrated poor control at 7.8. At this time I recommended that she increase her metformin from 500 daily to 500 twice daily. She also been recently recommended to follow-up with her orthopedic surgeon who did the rotator cuff on her right shoulder. She was complaining significantly that her shoulder pain neck pain and chest pain were related and I feel that this could be related to her underlying arthritis or possible soft tissue injury. She did report having injured her left shoulder 2 weeks ago when lifting a laundry basket. Encouraged her to follow-up with her orthopedic surgeon as well as with her PCP in 1-2 weeks. She was discharged home in stable condition. This patient was seen by Shiraz Schneider PA-C under the supervision of Doctor Mead. [] Discharge Diet: Low fat/ Low Cholesterol, 1600 Calorie Control Diet, 2000 mg Sodium Diet Discharge Activity: Return to Normal Activity Home Medications: Medications to take at Discharge Losartan Potassium [Cozaar] 25 mg PO DAILY 06/13/13 Multivitamins,Therapeutic [Multivitamin] 1 tablet PO DAILY 06/13/13 Polyethylene Glycol 3350 [Miralax] 17 gm PO DAILY PRN 06/13/13 Pravastatin [Pravachol] 80 mg PO DAILY 06/13/13 Pregabalin [Lyrica] 200 mg PO BID 06/13/13 Tizanidine HCl [Zanaflex] 4 mg PO TID PRN 06/13/13 Zolpidem Tartrate [Ambien] 10 mg PO QHS PRN PRN 06/13/13 Aspirin [Aspirin, Baby] 81 mg PO DAILY@0800 01/16/14 Budesonide/Formoterol 80-4.5 [Symbicort 80-4.5 Mcg Inhaler] 2 puff INHALATION BID 01/16/14 Cholecalciferol (VIT D3) [Vitamin D3] 1,000 unit PO DAILY 01/16/14 Cyanocobalamin [Vitamin B12] 2,000 mg PO DAILY 01/16/14 Meloxicam [Mobic] 7.5 mg PO BID 09/17/15 Dexlansoprazole [Dexilant] 60 mg PO QHS 11/22/16 Hydrocodone Bitartrate [Hysingla ER] 40 mg PO DAILY 11/22/16 Hydrocodone/Acetaminophen [Hydrocodone-Acetamin 7.5-325] 1 each PO BID PRN 11/22/16 Albuterol Sulfate [Ventolin Hfa] 2 puff INHALATION Q4H PRN PRN 06/08/17 Duloxetine HCl 30 mg PO DAILY 06/08/17 Estradiol 1 applicatio TOPICAL PRN PRN 06/08/17 Fluticasone 0.05% [Flonase Nasal [place]] 2 spray NASAL DAILY PRN 06/08/17 Lidocaine [Lidoderm Patch] 1 patch TOPICAL DAILY 06/08/17 Metformin HCl [Glucophage] 500 mg PO BID #30 tab 06/09/17 Following Prescrptions Were Given to Patient: Metformin HCl [Glucophage] 500 mg PO BID #30 tab Primary Care Physician: Glenn Plascencia NP-C [Primary Care Provider] - Please follow up with your Primary Care Physician in: 1-2 weeks Please Follow Up With: orthopedic surgery When: 1-2 weeks Disposition: Home Minutes spent on discharge:: 35 Patient Condition:: Stable Medical Necessity - Tobacco Use Smoking Status: Current every day smoker Tobacco Use: Cigarettes Meaningful Use Info Meaningful Use Diagnoses (Choose all that apply): None applicable <Paintsil,Modale - Last Filed: 06/09/17 14:14> Discharge Date and Diagnosis - Secondary Discharge Diagnosis Chronic Problems Diabetes mellitus type 2 in obese (Chronic) Hypertension (Chronic) Chronic back pain (Chronic) GERD (gastroesophageal reflux disease) (Chronic) COPD (chronic obstructive pulmonary disease) (Chronic) Hospital Course and Treatment Imaging Results: 06/09/17 05:55 Nuclear Stress Test - Treadmil [NM] AM (NON MEDS) Summary of Care Provided: The patient is a 56 year old F [] Code Visit Inpatient E AND M: 20301 Disch Hosp 06/09/17 1404 <Electronically signed by Shiraz GUEVARA> Date Shiraz GUEVARA 06/09/17 1414<Electronically signed by Sumi Mead MD> Cosigner Signature (if applicable): Date Sumi Mead MD CC: ISMAEL Schneider; Sumi Mead MD; Glenn HAND Signed BEDSIDE GLUCOSE Collected: 06/09/2017 Status: F Source: [place] 11:36 AM [facility] [place] TYPE CODE TESTS RESULT OUT OF REFERENCE UNITS RANGE LAB L501.080 70-110 mg/dL High BEDSIDE GLU 246 Result Comment: MANAGEMENT OF PATIENT CARE PER NURSING PROTOCOL Performed By: #### L501.080 #### [facility] Point of Care [address] [facility] [place] [address] DISCHARGE INSTRUCTION Observed: 06/09/2017 Status: F Source: [place] 11:14 AM [facility] [place] Medical Records Department [address] [place] [address] Instructions for Home/Discharge Instructions 06/09/17 1113 MR#: [id number] Acct: [id number] Name: JACOBY COOK Rep #: [id number] : 1960 56 From: Shiraz GUEVARA PCP: Glenn Vogel Status: ADM TAMMIE - Discharge Diagnoses Current Active Problems: Current Active and Chronic Problems Diabetes mellitus type 2 in obese (Chronic) Atypical chest pain (Acute) Hypertension (Chronic) Chronic back pain (Chronic) GERD (gastroesophageal reflux disease) (Chronic) COPD (chronic obstructive pulmonary disease) (Chronic) You will use the following diet at home:: Calorie/Carbohydrate Controlled (specify 1200, 1400, etc) - 1800 hue / day, Cardiac Your food should be the consistency of: Regular Your liquids should be the consistency of: Regular/Thin Discharge Activity: Return to Normal Activity Allergies/Adverse Reactions: Allergies No Known Allergies Allergy (Verified 06/08/17 17:27) Medications to take at Discharge Losartan Potassium [Cozaar] 25 mg PO DAILY 06/13/13 Multivitamins,Therapeutic [Multivitamin] 1 tablet PO DAILY 06/13/13 Polyethylene Glycol 3350 [Miralax] 17 gm PO DAILY PRN 06/13/13 Pravastatin [Pravachol] 80 mg PO DAILY 06/13/13 Pregabalin [Lyrica] 200 mg PO BID 06/13/13 Tizanidine HCl [Zanaflex] 4 mg PO TID PRN 06/13/13 Zolpidem Tartrate [Ambien] 10 mg PO QHS PRN PRN 06/13/13 Aspirin [Aspirin, Baby] 81 mg PO DAILY@0800 01/16/14 Budesonide/Formoterol 80-4.5 [Symbicort 80-4.5 Mcg Inhaler] 2 puff INHALATION BID 01/16/14 Cholecalciferol (VIT D3) [Vitamin D3] 1,000 unit PO DAILY 01/16/14 Cyanocobalamin [Vitamin B12] 2,000 mg PO DAILY 01/16/14 Meloxicam [Mobic] 7.5 mg PO BID 09/17/15 Dexlansoprazole [Dexilant] 60 mg PO QHS 11/22/16 Hydrocodone Bitartrate [Hysingla ER] 40 mg PO DAILY 11/22/16 Hydrocodone/Acetaminophen [Hydrocodone-Acetamin 7.5-325] 1 each PO BID PRN 11/22/16 Albuterol Sulfate [Ventolin Hfa] 2 puff INHALATION Q4H PRN PRN 06/08/17 Duloxetine HCl 30 mg PO DAILY 06/08/17 Estradiol 1 applicatio TOPICAL PRN PRN 06/08/17 Fluticasone 0.05% [Flonase Nasal [place]] 2 spray NASAL DAILY PRN 06/08/17 Lidocaine [Lidoderm Patch] 1 patch TOPICAL DAILY 06/08/17 Metformin HCl [Glucophage] 500 mg PO BID #30 tab 06/09/17 The following prescriptions were given: Metformin HCl [Glucophage] 500 mg PO BID #30 tab Primary Care Physician: Glenn Plascencia, MIKHAIL-C [Primary Care Provider] - Please follow up with your Primary Care Physician in: 1-2 weeks Please Follow Up With: orthopedic surgery When: 1-2 weeks Proposed Discharge Date: 06/09/17 06/09/17 1114 <Electronically signed by Shiraz GUEVARA> Date Shiraz GUEVARA CC: Glenn HAND STRESS REPORT Observed: 06/09/2017 Status: F Source: [place] 10:10 AM [facility] [place] Cardiovascular Services [address] [address] MR#: [id number] Acct: [id number] Name: JACOBY COOK Rep #: [id number] : 1960 56 From: Rafy Chen MD Primary Care: Glenn Vogel Status: ADM TAMMIE Ordering Dr: Sex: F C Stress Test Report Exercise myocardial perfusion stress test. 56-year-old lady with a history of chest pain. Stress protocol Resting EKG demonstrates sinus bradycardia with a rate of 59 beats minute normal intervals and noted resting blood pressure is 132/72 mmHg. The patient exercised according to regular Enrique protocol for total duration of 6 minutes and 42 seconds the maximum heart rate attained was 131 bpm which was 80% of maximum predicted heart rate the maximum workload attained was 8 metabolic equivalents. The patient maintained sinus rhythm throughout the recording. At rest there were no ST or T-wave changes noted suggest ischemia peak exercise upsloping ST changes only were noted with no meet the criteria for ischemia. The resting blood pressure is 132/72 with a peak blood pressure 158/72 mmHg. Myocardial perfusion protocol. 12.0 mCi of technetium 99m sestamibi was injected at rest. The patient exercised according to regular Enrique protocol for 6 minutes 42 seconds attaining 80% of maximum predicted heart rate at peak exercise 35.8 mCi of technetium 99m sestamibi was injected stress images were obtained stress and rest images were reconstructed and compared in the short axis vertical long and horizontal long axis. Gated images were also obtained pre- Perfusion SPECT analysis: Review of the stress images demonstrate normal uptake of tracer noted in all areas of the myocardium. The resting images similarly demonstrate normal uptake of tracer noted in all areas of the myocardium. No areas of reversibility are noted suggest ischemia no previous infarct is noted. Gated SPECT analysis. The gated ejection fraction is 77%. Conclusion: Normal exercise myocardial perfusion stress test at a moderate workload. No clinical angina noted. Preserved ejection fraction. 06/09/17 1010 <Electronically signed by Rafy Chen MD> Date Rafy Chen MD CC: Sumi Mead MD; Glenn HAND Date Dictated: 06/09/17 1007 Date Transcribed: 06/09/17 1007 Apparatus Cleaner: CO Signed TROPONIN-I Collected: 06/09/2017 Status: F Source: [place] 9:03 AM [facility] Order Comment: 'TROP' Serial specimen #1, #2, #3, or #4: 4 TYPE CODE TESTS RESULT OUT OF RANGE REFERENCE UNITS LAB L501.4010 <0.06 ng/mL Normal < 0.02 TROPONIN-I Result Comment: TROPONIN-I EXPECTED VALUES <0.05 NEGATIVE 0.06 - 0.59 AT RISK OF MO > OR = 0.60 SUGGEST MO Performed By: #### L501.4010 #### [facility] [address] [place], [place], [id number] BEDSIDE GLUCOSE Collected: 06/09/2017 Status: F Source: [place] 6:04 AM [facility] TYPE CODE TESTS RESULT OUT OF REFERENCE UNITS RANGE LAB L501.080 70-110 mg/dL High BEDSIDE GLU 181 Result Comment: MANAGEMENT OF PATIENT CARE PER NURSING PROTOCOL Performed By: #### L501.080 #### [facility] Point of Care [address] [facility] [place], [place] [address] PROTHROMBIN TIME W/INR Collected: 06/09/2017 Status: F Source: [place] 5:00 AM [facility] TYPE CODE TESTS RESULT OUT OF RANGE REFERENCE UNITS LAB L300.4150 11.7-14.9 SECONDS Normal PROTIME 13.4 LAB L300.4200 Normal INR 1.0 Performed By: #### L300.3900, L300.4310 #### [facility] [address] [place], [address] PARTIAL THROMBOPLAST Collected: 06/09/2017 Status: F Source: [place]LLY TIME 5:00 AM [facility] TYPE CODE TESTS RESULT OUT OF RANGE REFERENCE UNITS LAB L300.4310 24.1-36.2 Seconds Normal PTT 31.9 Performed By: #### L300.3900, L300.4310 #### [facility] [address] [place], [address] LIPID PROFILE Collected: 06/09/2017 Status: F Source: [place] 5:00 AM [facility] TYPE CODE TESTS RESULT OUT OF RANGE REFERENCE UNITS LAB L501.4900 200 mg/dL Normal CHOL 139 Result Comment: <200 mg/dL Desirable 200-240 mg/dL Borderline >240 mg/dL High Risk LAB L501.5000 mg/dL Normal TRIG 184 Result Comment: The drugs N-Acetylcysteine and Metamizole may falsely depress this assay. Serum Triglycerides Reference Interval Normal <150 mg/dL Borderline high 150 - 199 mg/dL High 200 - 499 mg/dL Very High > or = 500 mg/dL LAB L501.6400 mg/dL Normal HDL 41 Result Comment: The drugs N-Acetylcysteine and Metamizole may falsely depress this assay. Reference Range HDL <40 mg/dL Low HDL Cholesterol HDL >or= 60 mg/dL High HDL Cholesterol LAB L501.6500 0-130 mg/dL Normal LDL 61 LAB L501.6600 5-40 mg/dL Normal VLDL 37 Performed By: #### L500.4100, L501.9520 #### [facility] [address] [place], [address] THYROID STIM HORMONE Collected: 06/09/2017 Status: F Source: KELLY (TSH) 5:00 AM [facility] TYPE CODE TESTS RESULT OUT OF RANGE REFERENCE UNITS LAB L501.9520 0.358-3.74 uIU/mL Normal TSH 2.01 Performed By: #### L500.4100, L501.9520 #### [facility] [address] [place], [address] CBC-COMPLETE BLOOD CNT Collected: 06/09/2017 Status: F Source: KELLY NO DIFF 5:00 AM [facility] TYPE CODE TESTS RESULT OUT OF RANGE REFERENCE UNITS LAB L100.1000 4.4-11.0 K/mm3 Normal WBC 6.7 LAB L100.1200 4.2-5.4 M/mm3 Normal RBC 4.27 LAB L100.1300 12.0-15.0 g/dl Normal HGB 14.1 LAB L100.1400 37-47 % Normal HCT 43.2 LAB L100.1500 81-99 fL High MCV 101.2 LAB L100.1600 27.0-32.0 pg High MCH 33.0 LAB L100.1700 32-36 g/gl Normal MCHC 32.6 LAB L100.1810 11.6-14.6 % Normal RDW CV 13.8 LAB L100.1820 35.1-43.9 fl High RDW SD 51.3 LAB L100.1900 150-450 K/mm3 Normal PLT 168 LAB L100.2000 6.2-12.0 fl Normal MPV 10.4 Performed By: #### L100.0500 #### [facility] [address] [place], [place], [address] HEMOGLOBIN A1C Collected: 06/09/2017 Status: F Source: [place] 5:00 AM [facility] TYPE CODE TESTS RESULT OUT OF RANGE REFERENCE UNITS LAB L501.9985 4.2-6.3 % High HGB A1C 7.8 Performed By: #### L501.9985 #### [facility] [address] [place], [address] BASIC METABOLIC Collected: 06/09/2017 Status: F Source: [place]LLY PROFILE (BMP) 5:00 AM [facility] TYPE CODE TESTS RESULT OUT OF RANGE REFERENCE UNITS LAB L501.0100 74-106 mg/dL High GLU 176 Result Comment: Fasting Glucose result greater than or equal to 126 mg/dL suggests DIABETES MELLITUS per A.D.A. criteria. Please note revised GLUCOSE reference range effective 2017. LAB L501.1000 7-18 mg/dL Normal BUN 13 LAB L501.1100 0.55-1.02 mg/dL Normal CREAT,SERUM 0.82 Result Comment: The validity of the calculated GFR AND GFRAA in patients over 70 years has not been determined. Clinical correlation is essential. LAB L501.1110 >60 mL/min Normal EST GFR 76 Result Comment: Non- GFR Calc LAB L501.1115 >60 mL/min Normal EST GFR - AA 92 Result Comment: GFR Calc LAB L501.1255 ml/min Normal Estimated CRCL 53.72 LAB L501.1300 10-20 RATIO Normal BUN/CRE 15.9 LAB L501.2200 8.5-10 mg/dL Normal .1 CA 9.7 LAB L501.5300 136-14 mmol/L Normal 5 NA 140 LAB L501.5600 3.5-5. mmol/L Normal 1 K 4.3 LAB L501.5900 98-107 mmol/L Normal CL 107 LAB L501.6100 21.0-3 mmol/L Normal 2.0 CO2 26.0 LAB L501.6200 5-15 Normal GAP 7 Performed By: #### L500.2500 #### [facility] [address] [facility] [place], [place], [address] TROPONIN-I Collected: 06/09/2017 Status: F Source: [place] 1:05 AM [facility] Order Comment: 'TROP' Serial specimen #1, #2, #3, or #4: 3 TYPE CODE TESTS RESULT OUT OF RANGE REFERENCE UNITS LAB L501.4010 <0.06 ng/mL Normal < 0.02 TROPONIN-I Result Comment: TROPONIN-I EXPECTED VALUES <0.05 NEGATIVE 0.06 - 0.59 AT RISK OF MO > OR = 0.60 SUGGEST MO Performed By: #### L501.4010 #### [facility] [address] [facility] [facility] [place], [place], [id number] TROPONIN-I Collected: 06/08/2017 Status: F Source: [place]LLY 9:13 PM [facility] Order Comment: 'TROP' Serial specimen #1, #2, #3, or #4: 2 TYPE CODE TESTS RESULT OUT OF RANGE REFERENCE UNITS LAB L501.4010 <0.06 ng/mL Normal < 0.02 TROPONIN-I Result Comment: TROPONIN-I EXPECTED VALUES <0.05 NEGATIVE 0.06 - 0.59 AT RISK OF MO > OR = 0.60 SUGGEST MO Performed By: #### L501.4010 #### [facility] [address] [place], [address] BEDSIDE GLUCOSE Collected: 06/08/2017 Status: F Source: [place] 8:53 PM [facility] TYPE CODE TESTS RESULT OUT OF REFERENCE UNITS RANGE LAB L501.080 70-110 mg/dL High BEDSIDE GLU 113 Result Comment: MANAGEMENT OF PATIENT CARE PER NURSING PROTOCOL Performed By: #### L501.080 #### [facility] Point of Care [address] [place] [address] HISTORY AND PHYSICAL Observed: 06/08/2017 Status: F Source: [place] EXAM 7:56 PM [facility] Medical Records Department [address] [facility] [place] [address] History and Physical 06/08/17 194 MR#: [id number] Acct: [id number] Name: JACOBY COOK Rep #: [id number] : 1960 56 From: Dilshad Montanze MD PCP: Glenn Vogel Status: ADM TAMMIE Y Location: [place] [address] Problem List (1) Diabetes mellitus type 2 in obese Status: Chronic (2) Atypical chest pain Status: Acute (3) Hypertension Status: Chronic (4) Chronic back pain Status: Chronic (5) GERD (gastroesophageal reflux disease) Status: Chronic (6) COPD (chronic obstructive pulmonary disease) Status: Chronic History of Present Illness Date of Admission: 06/08/17 Chief Complaint: Chest pain today The patient is a 56 year old F with multiple comorbidities including COPD with active smoker about half a pack to a pack per day but no coronary artery disease history came to ER with sudden onset of chest pain which lasted for about 2 and half hours. She complained of left-sided chest pain, persistent with radiation to left neck along with diaphoresis but no shortness of breath, dizziness, near syncope or syncope. Prior to that, she had left arm/shoulder pain pain 2 weeks. ED, EKG shows normal sinus rhythm with LAD, LAFB at 83 bpm. No change from previous EKG in June 2013. [] Past Medical History Past Medical History (Chronic Problems): Chronic Problems Diabetes mellitus type 2 in obese (Chronic) Hypertension (Chronic) Chronic back pain (Chronic) GERD (gastroesophageal reflux disease) (Chronic) COPD (chronic obstructive pulmonary disease) (Chronic) Allergies No Known Allergies Allergy (Verified 06/08/17 17:27) Home Medications: Ambulatory Orders Medication Instructions Recorded Losartan Potassium [Cozaar] 25 mg PO DAILY 06/13/13 Multivitamins,Therapeutic 1 tablet PO DAILY 06/13/13 Smoking Status: Current every day smoker Review of Systems Constitutional: Denies: Chills, Fever, Weight Change HEENT: Reports: Sinus Congestion. Denies: Head Aches, Sinus Drainage Cardiovascular: Reports: Chest Pain. Denies: Palpitations Respiratory: Denies: Cough, Shortness of breath at rest, Sputum production Gastrointestinal: Denies: Abdominal Pain, Nausea, Vomiting Genitourinary: Denies: Dysuria Musculoskeletal: Denies: Joint Pain, Joint Tenderness Skin: Denies: Rash, Wounds Neurological: Denies: Numbness, Tingling, Focal weakness Psychiatric: Denies: Anxiety, Depression, Homicidal Ideations, Suicidal Ideations Hematologic/ Lymphatic: Denies: Easy Bruising, Easy Bleeding VTE Information - Inpt Only VTE Present on Admission: No VTE Mechan Device Prophylaxis: SCD's VTE Pharm Prophylaxis ordered?: Yes Patient Problems: Active and Suspected Problems Atypical chest pain (Acute) - Physical Exam General: Alert, Oriented x3, Cooperative HEENT: Atraumatic, PERRLA, EOMI, Normocephalic Neck: Supple, No JVD, Negative Carotid Bruits Lungs: Clear to auscultation, No rhonchi, No wheeze, No rales, Diminished Cardiovascular: Regular rate, Normal S1, Normal S2, No murmurs Abdomen: Bowel Sounds Present, Soft, Non Tender, Non-Distended Extremities: No edema, Capillary Refill Less than 3 Seconds Skin: No rashes, No breakdown Musculoskeletal: No Tenderness to Palpation of Joints or Extremities Neurological: Cranial nerves II-XII grossly intact Psych/Mental Status: Normal Affect, Appropriate Vital Signs Temp Pulse Resp BP Pulse Ox 98.4 F 65 16 157/65 H 94 06/08/17 17:23 06/08/17 19:00 06/08/17 19:00 06/08/17 19:00 06/08/17 19:00 Assessment/Plan Active and Suspected Problems Atypical chest pain (Acute) The patient is a 56 year old F with multiple comorbidities including COPD with active smoker about half a pack to a pack per day but no coronary artery disease history came to ER with sudden onset of chest pain which lasted for about 2 and half hours. She complained of left-sided chest pain, persistent with radiation to left neck along with diaphoresis but no shortness of breath, dizziness, near syncope or syncope. Her chest pain aggravates on deep inspiration. Prior to that, she had left arm/shoulder pain pain 2 weeks. ED, EKG shows normal sinus rhythm with LAD, LAFB at 83 bpm. No change from previous EKG in June 2013. 1. Atypical chest pain pleuritic in nature rule out acute coronary syndrome: Her ALIREZA score is 3. She had a stress test and [facility] about in 2014 and was negative as per the patient. The patient is being admitted in PCU. Cycle cardiac enzymes. Treadmill nuclear stress test tomorrow morning. Continue aspirin, nitro ointment 1% as needed for chest pain, statin and losartan. 2. COPD with active smoker: Stable not in exacerbation. Smoking cessation counseling done. Continue Symbicort and albuterol inhaler as needed. Chest x-ray reported normal. 3. Hypertension: Blood pressure slightly elevated. On losartan 25 mg daily first dose now; titrate up if needed. 4. Diabetes mellitus type 2 with uncontrolled hyperglycemia: Glucose 229. A1c tomorrow a.m. Accu-Chek before meals and at bedtime and cover with NovoLog sliding scale. 5. Other comorbidities include chronic arthritis involving lumbar spine with chronic back pain, GERD/PUD and possible diabetic neuropathy: Home medication reconciliation done. On chronic pain medication including hydrocodone 7.5/325 twice daily as needed and hydrocodone extended release 40 mg daily. Discussed with the pharmacist. She is to OxyContin 50 mg twice daily and Vicodin 10/325 twice daily. DVT prophylaxis: On heparin 5000 subcu units twice daily and bilateral SCDs Laboratory Results 06/08/17 17:35: WBC 8.9, RBC 4.70, Hgb 15.7 H, Hct 47.4 H, MCV 100.9 H, MCH 33.4 H, MCHC 33.1, RDW 13.5, RDW Differential 50.2 H, Plt Count 179, MPV 10.6, Immature Gran % (Auto) 0.100, Neut % (Auto) 53.9, Lymph % (Auto) 39.0, [place] % (Auto) 4.7, Eos % (Auto) 2.0, Baso % (Auto) 0.3, Absolute Neuts (auto) 4.8, Absolute Lymphs (auto) 3.46, Total Counted Not Reportable 06/08/17 17:35: Sodium 139, Potassium 3.8, Chloride 103, Carbon Dioxide 27.0, Anion Gap 9, BUN 14, Creatinine 0.92, Estim Creat Clear Calc 47.88, Est GFR (MDRD) Af Amer 80, Est GFR (MDRD) Non-Af 66, BUN/Creatinine Ratio 15.2, Glucose 229 H, Calcium 10.6 H, Troponin I < 0.02 Clinical Impression(s) from Imaging Studies Shoulder X-Ray 06/08/17 17:37 IMPRESSION: No acute bony pathology of the shoulder. Electronically Signed: Fernando Walton DO at 18:15 EDT Tel [phone], Service support , Chest X-Ray 06/08/17 17:45 IMPRESSION: Normal x-ray examination of the chest. Code Visit OBSV E AND M: 12078 Initial observation care L3 06/08/171955 <Electronically signed by Dilshad Montanez MD> Date Dilshad Montanez MD Cosigner Signature: Date (if applicable) CC: Glenn HAND; Dilshad Montanez MD Signed EMERGENCY DEPARTMENT Observed: 06/08/2017 Status: F Source: [place] SUMMARY 6:52 PM [facility] Medical Records Department [address] [address] [address] Emergency Department Summary 06/08/17 151 MR#: [id number] Acct: [id number] Name: JACOBY COOK Rep #: [id number] : 1960 56 From: Pawel Abdi MD PCP: Glenn Vogel Status: REG ER - ER Visit Summary Date of Service: 06/08/17 Chief Complaint: Chest pain History of Present Illness: The patient is a 56 F who presents with chest pain. She states over the last 2 weeks she has had left upper arm pain from her shoulder down to about the elbow. This is worse with movement or palpation. She had attributed this to a musculoskeletal etiology such as possible rotator cuff injury. However tonight she also developed chest pain. She complained of pain across her upper chest and radiating up into her neck. This is been intermittent over the last 2-1/2 hours. She states that it lasts about 10 minutes at a time and is associated with diaphoresis and sweats. She denies associated nausea vomiting or shortness of breath. There are no exacerbating or relieving factors. She does not have a history of coronary disease but does have diabetes hypertension hyperlipidemia family history of coronary disease in a sibling less than age 55 and she is a smoker. Physical Examination: Afebrile vitals are unremarkable Heart regular rate and rhythm Lungs are clear Abdomen soft 2+ radial pulses Patient has some anterior left shoulder tenderness but no chest or neck tenderness Test Results: EKG shows sinus rhythm with a left anterior fascicular block at a rate of 83. Shoulder x-ray is normal. Chest x-ray is normal. Laboratory studies are unremarkable with a negative troponin. Emergency Department Course and Treatment: She was given aspirin. Although she does have a reproducible component of shoulder pain she does not have reproducible chest pain. I would not expect a shoulder etiology to cause chest and neck pain and associated diaphoresis. Given her multiple cardiac risk factors I do feel she needs a rule out with repeat EKG enzymes and stress testing. Her ALIREZA risk score is 3, her heart score is 5. Treatment Plan: [] Disposition: Admit Impression: Chest pain Left shoulder pain This note was generated with [employer] dictation software. It may contain incorrect words, spelling, and punctuation that were not noted in review of the chart prior to signing ED Disposition - Plan for ED Patient: Chief Complaint: Chest Pain Referrals: Glenn Plascencia, [employer] [Primary Care Provider] - What to do if you have Problems For any increased pain, shortness of breath, bleeding, nausea or vomiting, chest pain, or any unexpected problems, contact your Primary Care Provider. Call [facility] ([phone]) or report to the closest Emergency Room. Call 911 if necessary. 06/08/17 1852 <Electronically signed by Pawel Abdi MD> Date Pawel Abdi MD Cosigner Signature (If Indicated): Date CC: Glenn HAND SHOULDER MIN 2 VIEWS Observed: 06/08/2017 Status: F Source: [place] 5:38 PM [facility] Imaging Services [address] [place] [address] Shoulder min 2 Views MR#: [id number] Acct: [id number] Name: JACOBY COOK Rep #: [id number] : 1960 F 56 From: Fernando Walton DO PCP: Glenn Vogel Status: REG ER Study: Shoulder min 2 Views Date of Exam: 06/08/17 Exam# [id number] Ordering Dr: Pawel Abdi MD STUDY: X-RAY - LEFT SHOULDER REASON FOR EXAM: Female, 56 years old. Chest pain to left shoulder and neck TECHNIQUE: 4 view(s) of the shoulder. COMPARISON: None. FINDINGS: Normal glenohumeral articulation. Mild degenerative hypertrophy at the acromioclavicular joint. Normal acromion. Normal humeral head and visualized proximal humerus. The soft tissue structures are unremarkable. Normal visualized pulmonary apex. RAD/Shoulder min 2 Views IMPRESSION: No acute bony pathology of the shoulder. Electronically Signed: Fernando Walton DO at 18:15 EDT Tel [phone], Service support , CC: Glenn HAND; Pawel Abdi MD Apparatus Cleaner: Signed CHEST PA AND LATERAL Observed: 06/08/2017 Status: F Source: [place] 5:38 PM [facility] Imaging Services [address] [address] Chest PA and Lateral MR#: [id number] Acct: [id number] Name: JACOBY COOK Rep #: [id number] : 1960 F 56 From: Fernando Walton DO PCP: Glenn Vogel Status: REG ER Study: Chest PA and Lateral Date of Exam: 06/08/17 Exam# [id number] Ordering Dr: Pawel Abdi MD STUDY: X-RAY CHEST REASON FOR EXAM: Female, 56 years old. Chest pain TECHNIQUE: Frontal and lateral views COMPARISON: December 02, 2013 FINDINGS: The lungs are clear and expanded. There is no demonstrated pleural abnormality. Normal size heart. Normal mediastinum and nathalie. Normal visualized pulmonary arteries. Normal visualized aortic arch and descending thoracic aorta. Mild degenerative changes of the thoracic spine. Normal visualized ribs, clavicles, and shoulders. There is no demonstrated abnormality of the visualized soft tissue structures of the upper abdomen. RAD/Chest PA and Lateral IMPRESSION: Normal x-ray examination of the chest. Electronically Signed: Fernando Walton DO at 18:16 EDT Tel [phone], Service support , CC: Glenn HAND; Pawel Abdi MD Apparatus Cleaner: Signed CBC W/DIFF, AUTOMATED Collected: 06/08/2017 Status: F Source: [place] 5:35 PM [facility] TYPE CODE TESTS RESULT OUT OF RANGE REFERENCE UNITS LAB L100.1000 4.4-11.0 K/mm3 Normal WBC 8.9 LAB L100.1200 4.2-5.4 M/mm3 Normal RBC 4.70 LAB L100.1300 12.0-15.0 g/dl High HGB 15.7 LAB L100.1400 37-47 % High HCT 47.4 LAB L100.1500 81-99 fL High MCV 100.9 LAB L100.1600 27.0-32.0 pg High MCH 33.4 LAB L100.1700 32-36 g/gl Normal MCHC 33.1 LAB L100.1810 11.6-14.6 % Normal RDW CV 13.5 LAB L100.1820 35.1-43.9 fl High RDW SD 50.2 LAB L100.1900 150-450 K/mm3 Normal PLT 179 LAB L100.2000 6.2-12.0 fl Normal MPV 10.6 LAB L100.2100 47-70 % Normal NEUT% 53.9 LAB L100.2200 19-41 % Normal LY% 39.0 LAB L100.2300 0-10 % Normal MONO% 4.7 LAB L100.2400 0-5 % Normal EO% 2.0 LAB L100.2500 0-1 % Normal BASO% 0.3 LAB L100.2550 0.0-0.9 % Normal IM GRAN % 0.100 Result Comment: IG% - Immature Granulocytes (promyelocytes, myelocytes and metamyelocytes) > 1% indicates that a LEFT SHIFT is Present. LAB L100.2620 2.0-7.7 X10 3/uL Normal Absolute Neut 4.8 LAB L100.2720 0.83-4.51 X10 3/ul Normal Absolute Lymph 3.46 Performed By: #### L100.0100 #### [facility] [address] [place], [address] BASIC METABOLIC Collected: 06/08/2017 Status: F Source: [place] PROFILE (BMP) 5:35 PM [facility] Order Comment: 'TROP' Serial specimen #1, #2, #3, or #4: 1 TYPE CODE TESTS RESULT OUT OF RANGE REFERENCE UNITS LAB L501.0100 74-106 mg/dL High GLU 229 Result Comment: Glucose result greater than or equal to 200 mg/dL suggests DIABETES MELLITUS per A.D.A. criteria. Please note revised GLUCOSE reference range effective 2017. LAB L501.1000 7-18 mg/dL Normal BUN 14 LAB L501.1100 0.55-1.02 mg/dL Normal CREAT,SERUM 0.92 Result Comment: The validity of the calculated GFR AND GFRAA in patients over 70 years has not been determined. Clinical correlation is essential. LAB L501.1110 >60 mL/min Normal EST GFR 66 Result Comment: Non- GFR Calc LAB L501.1115 >60 mL/min Normal EST GFR - AA 80 Result Comment: GFR Calc LAB L501.1255 ml/min Normal Estimated CRCL 47.88 LAB L501.1300 10-20 RATIO Normal BUN/CRE 15.2 LAB L501.2200 8.5-10 mg/dL High .1 CA 10.6 LAB L501.5300 136-14 mmol/L Normal 5 NA 139 LAB L501.5600 3.5-5. mmol/L Normal 1 K 3.8 LAB L501.5900 98-107 mmol/L Normal CL 103 LAB L501.6100 21.0-3 mmol/L Normal 2.0 CO2 27.0 LAB L501.6200 5-15 Normal GAP 9 Performed By: #### L500.2500, L501.4010 #### [facility] [address] [place], [address] TROPONIN-I Collected: 06/08/2017 Status: F Source: [place] 5:35 PM [facility] Order Comment: 'TROP' Serial specimen #1, #2, #3, or #4: 1 TYPE CODE TESTS RESULT OUT OF RANGE REFERENCE UNITS LAB L501.4010 <0.06 ng/mL Normal < 0.02 TROPONIN-I Result Comment: TROPONIN-I EXPECTED VALUES <0.05 NEGATIVE 0.06 - 0.59 AT RISK OF MO > OR = 0.60 SUGGEST MO Performed By: #### L500.2500, L501.4010 #### [facility] [address], [address] D-DIMER QUANTITATIVE Collected: 06/08/2017 Status: F Source: [place]LLY (DVT/PE) 5:35 PM [facility] TYPE CODE TESTS RESULT OUT OF RANGE REFERENCE UNITS LAB L300.8000 0.27-0.49 FEU/ug/m Normal D-DIMER 0.39 QUANT Result Comment: NORMAL D-Dimer level (<0.50) indicates no DVT or PE. Performed By: #### L300.8000 #### [facility] [address], [address] FLUOROSCOPY IN OR/PAIN Observed: 05/23/2017 Status: F Source: [facility] MGT 9:35 AM [facility] REPOSITORY FLUOROSCOPY IN OR/PAIN MGT Ordering Physician: Lina Lam DO 05/23/2017 9:35 AM [facility] FLUOROSCOPY Clinical Statement: Low back pain FINDINGS: 61 seconds fluoroscopy time was utilized by Dr. Lam. 8 C-arm images of the lumbar spine were obtained. IMPRESSION: 61 seconds fluoroscopy time utilized by Dr. Lam. ---- Electronic Signature on File ---- Signed By: Charles Arroyo MD FACR [email or web address] Dictated: 05/23/2017 10:57 AM Signed: 05/23/2017 10:58 AM Reported By: CHARLES ARROYO M.D. Signed By: CHARLES ARROYO M.D. CBC AND DIFFERENTIAL Collected: 04/11/2017 Status: F Source: [place] 10:04 AM CLINIC REFERENCE REPOSITORY TYPE CODE TESTS RESULT OUT OF REFERENCE UNITS RANGE LAB WBC(LOINC) 3.70-11.00 k/uL WBC 6.78 LAB RBC(LOINC) 3.90-5.20 m/uL RBC 4.88 LAB HGB(LOINC) 11.5-15.5 g/dL High Hemoglobin 16.1 LAB HCT(LOINC) 36.0-46.0 % High Hematocrit 48.6 LAB MCV(LOINC) 80.0-100.0 fL MCV 99.6 LAB MCH(LOINC) 26.0-34.0 pG MCH 33.0 LAB MCHC(LOINC 30.5-36.0 g/dL ) MCHC 33.1 LAB RDWCV(LOIN 11.5-15.0 % C) RDW-CV 13.6 LAB PLTCT(LOIN 150-400 k/uL C) Platelet Count 185 LAB MPV(LOINC) 9.0-12.7 fL MPV 11.2 LAB ANEUT(LOIN % C) Neut% 44.5 LAB AANEUT(PATRICIO 1.45-7.50 k/uL NC) Abs Neut 3.00 LAB ALYMP(LOIN % C) Lymph% 43.1 LAB AALYMP(PATRICIO 1.00-4.00 k/uL NC) Abs Lymph 2.92 LAB AMONO(LOIN % C) [place]% 7.8 LAB AAMONO(PATRICIO <0.87 k/uL NC) Abs [place] 0.53 LAB AEOS(LOINC % ) Eosin% 3.7 LAB AAEOS(LOIN <0.46 k/uL C) Abs Eosin 0.25 LAB ABASO(LOIN % C) Baso% 0.9 LAB AABASO(PATRICIO <0.11 k/uL NC) Abs Baso 0.06 LAB AUNRBC(PATRICIO 0 /100 WBC NC) NRBCs 0.0 LAB ABNRBC(PATRICIO <0.01 k/uL NC) Absolute nRBC <0.01 LAB DTYP(LOINC ) DTYPE ADIFF COMP METABOLIC PANEL Collected: 04/11/2017 Status: F Source: [place] 10:04 AM CLINIC REFERENCE REPOSITORY TYPE CODE TESTS RESULT OUT OF REFERENCE UNITS RANGE LAB TP(LOINC) 6.3-8.0 g/dL Protein, Total 7.2 LAB ALB(LOINC) 3.9-4.9 g/dL Albumin 4.1 LAB CA(LOINC) 8.5-10.2 mg/dL Calcium, High Total 10.6 LAB TBIL(LOINC 0.2-1.3 mg/dL ) Bilirubin, Total 0.3 LAB ALKP(LOINC 32-117 U/L ) Alkaline Phosphatase 49 LAB AST(LOINC) 13-35 U/L AST High 50 LAB GLU(LOINC) 74-99 mg/dL Glucose High 127 LAB BUN(LOINC) 7-21 mg/dL BUN 17 LAB CRET(LOINC 0.58-0.96 mg/dL ) Creatinine 0.85 LAB NA(LOINC) 136-144 mmol/L Sodium 138 LAB K(LOINC) 3.7-5.1 mmol/L Potassium 4.7 LAB CL(LOINC) 97-105 mmol/L Chloride 98 LAB CO2(LOINC) 22-30 mmol/L CO2 27 LAB AGAP(LOINC 9-18 mmol/L ) Anion Gap 13 LAB ALT(LOINC) 7-38 U/L ALT High 47 LAB GFRAA(LOIN C) eGFR- >60 Amer. LAB GFRNAA(PATRICIO . NC) eGFR-All Other Races >60 LIPID PANEL, BASIC Collected: 04/11/2017 Status: F Source: [place] 10:04 AM CLINIC REFERENCE REPOSITORY TYPE CODE TESTS RESULT OUT OF REFERENCE UNITS RANGE LAB CHOL(LOINC <200 mg/dL ) Cholesterol 152 LAB TRIGLY(PATRICIO <150 mg/dL NC) Triglyceride High 157 LAB HDL(LOINC) >39 mg/dL HDL-Cholesterol 45 LAB LDL(LOINC) <100 mg/dL LDL-Cholesterol 76 LAB NONHDL(PATRICIO <130 mg/dL NC) Non HDL Cholesterol 107 LAB FT(LOINC) hrs Fasting Time 15 LAB VLDL(LOINC <30 mg/dL ) VLDL High Cholesterol 31 LAB TCHDL(LOIN <5.10 C) TC:HDL Ratio 3.38 LAB LDLHDL(PATRICIO <2.54 NC) LDL:HDL Ratio 1.69 FREE T4 Collected: 04/11/2017 Status: F Source: [place] 10:04 AM CLINIC REFERENCE REPOSITORY TYPE CODE TESTS RESULT OUT OF RANGE REFERENCE UNITS LAB FT4(LOINC) 0.9-1.7 ng/dL Free T4 1.3 TSH Collected: 04/11/2017 Status: F Source: [place] 10:04 AM CLINIC REFERENCE REPOSITORY TYPE CODE TESTS RESULT OUT OF RANGE REFERENCE UNITS LAB TSH(LOINC) 0.400-5.500 uU/mL TSH 2.700 PTH, INTACT Collected: 04/11/2017 Status: F Source: [place] 10:04 AM CLINIC REFERENCE REPOSITORY TYPE CODE TESTS RESULT OUT OF REFERENCE UNITS RANGE LAB PTH(LOINC) 15-65 pg/mL PTH, Intact 26 HEMOGLOBIN A1C Collected: 04/11/2017 Status: F Source: [place] 10:04 AM CLINIC REFERENCE REPOSITORY TYPE CODE TESTS RESULT OUT OF REFERENCE UNITS RANGE LAB HGBA1C(PATRICIO 4.3-5.6 % NC) High Hemoglobin A1c 7.2 LAB HBA0(LOINC mg/dL ) Est. Average Glucose 160 VITAMIN D 25 HYDROXY Collected: 04/11/2017 Status: F Source: [place] 10:04 AM CLINIC REFERENCE REPOSITORY TYPE CODE TESTS RESULT OUT OF REFERENCE UNITS RANGE LAB VITD(LOINC) 31.0-80.0 ng/mL Low Vitamin D 25 29.9 Hydroxy ALT Collected: 11/28/2016 Status: F Source: [place] 8:59 AM CLINIC REFERENCE REPOSITORY TYPE CODE TESTS RESULT OUT OF RANGE REFERENCE UNITS LAB ALT(LOINC) 7-38 U/L High ALT 43 AST Collected: 11/28/2016 Status: F Source: [place] 8:59 AM CLINIC REFERENCE REPOSITORY TYPE CODE TESTS RESULT OUT OF RANGE REFERENCE UNITS LAB AST(LOINC) 13-35 U/L High AST 41 BASIC METABOLIC PANL Collected: 11/28/2016 Status: F Source: [place] 8:59 AM CLINIC REFERENCE REPOSITORY TYPE CODE TESTS RESULT OUT OF REFERENCE UNITS RANGE LAB GLU(LOINC) 74-99 mg/dL Glucose High 118 LAB BUN(LOINC) 7-21 mg/dL BUN High 24 LAB CRET(LOINC 0.58-0.96 mg/dL ) Creatinine 0.83 LAB NA(LOINC) 136-144 mmol/L Sodium 139 LAB K(LOINC) 3.7-5.1 mmol/L Potassium 4.8 LAB CL(LOINC) 97-105 mmol/L Chloride 99 LAB CO2(LOINC) 22-30 mmol/L CO2 28 LAB AGAP(LOINC 9-18 mmol/L ) Anion Gap 12 LAB CA(LOINC) 8.5-10.2 mg/dL Calcium, High Total 11.1 LAB GFRAA(LOIN C) eGFR- >60 Amer. LAB GFRNAA(PATRICIO . NC) eGFR-All Other Races >60 LIPID PANEL, BASIC Collected: 11/28/2016 Status: F Source: [place] 8:59 AM CLINIC REFERENCE REPOSITORY TYPE CODE TESTS RESULT OUT OF REFERENCE UNITS RANGE LAB TRIGLY(PATRICIO 30-149 mg/dL NC) Triglyceride 114 LAB CHOL(LOINC 100-199 mg/dL ) Cholesterol 174 LAB HDL(LOINC) >55 mg/dL Low HDL-Cholesterol 53 LAB VLDL(LOINC 6-40 mg/dL ) VLDL Cholesterol 23 LAB LDL(LOINC) 60-129 mg/dL LDL-Cholesterol 98 LAB FT(LOINC) hrs Fasting Time 12 LAB TCHDL(LOIN 1.00-5.00 C) TC:HDL Ratio 3.28 LAB LDLHDL(PATRICIO 0.50-3.55 NC) LDL:HDL Ratio 1.85 LAB NONHDL(PATRICIO 90-159 mg/dL NC) Non HDL Cholesterol 121 HEMOGLOBIN A1C Collected: 11/28/2016 Status: F Source: [place] 8:59 AM CLINIC REFERENCE REPOSITORY TYPE CODE TESTS RESULT OUT OF REFERENCE UNITS RANGE LAB HGBA1C(PATRICIO 4.3-5.6 % NC) High Hemoglobin A1c 7.5 LAB HBA0(LOINC mg/dL ) Est. Average Glucose 169 CBC AND DIFFERENTIAL Collected: 08/04/2016 Status: F Source: [place] 8:31 AM CLINIC REFERENCE REPOSITORY TYPE CODE TESTS RESULT OUT OF REFERENCE UNITS RANGE LAB WBC(LOINC) 3.70-11.00 k/uL WBC 6.55 LAB RBC(LOINC) 3.90-5.20 m/uL RBC 4.49 LAB HGB(LOINC) 11.5-15.5 g/dL Hemoglobin 15.3 LAB HCT(LOINC) 36.0-46.0 % High Hematocrit 47.2 LAB MCV(LOINC) 80.0-100.0 fL MCV High 105.1 LAB MCH(LOINC) 26.0-34.0 pG MCH High 34.1 LAB MCHC(LOINC 30.5-36.0 g/dL ) MCHC 32.4 LAB RDWCV(LOIN 11.5-15.0 % C) RDW-CV 14.1 LAB PLTCT(LOIN 150-400 k/uL C) Platelet Count 207 LAB MPV(LOINC) 9.0-12.7 fL MPV 11.9 LAB ANEUT(LOIN % C) Neut% 30.6 LAB AANEUT(PATRICIO 1.45-7.50 k/uL NC) Abs Neut 2.00 LAB ALYMP(LOIN % C) Lymph% 55.1 LAB AALYMP(PATRICIO 1.00-4.00 k/uL NC) Abs Lymph 3.61 LAB AMONO(LOIN % C) [place]% 8.5 LAB AAMONO(PATRICIO 0.00-0.86 k/uL NC) Abs [place] 0.56 LAB AEOS(LOINC % ) Eosin% 5.2 LAB AAEOS(LOIN 0.00-0.45 k/uL C) Abs Eosin 0.34 LAB ABASO(LOIN % C) Baso% 0.6 LAB AABASO(PATRICIO 0.00-0.10 k/uL NC) Abs Baso 0.04 LAB AUNRBC(PATRICIO 0 /100 WBC NC) NRBCs 0.0 LAB NRBC(LOINC 0 /100 WBC ) NRBCs 0 LAB ABNRBC(PATRICIO k/uL NC) Absolute nRBC 0.00 LAB DTYP(LOINC ) DTYPE ADIFF ALT Collected: 08/04/2016 Status: F Source: [place] 8:31 AM CLINIC REFERENCE REPOSITORY TYPE CODE TESTS RESULT OUT OF RANGE REFERENCE UNITS LAB ALT(LOINC) 7-38 U/L High ALT 45 AST Collected: 08/04/2016 Status: F Source: [place] 8:31 AM CLINIC REFERENCE REPOSITORY TYPE CODE TESTS RESULT OUT OF RANGE REFERENCE UNITS LAB AST(LOINC) 13-35 U/L High AST 45 BASIC METABOLIC PANL Collected: 08/04/2016 Status: F Source: [place] 8:31 AM CLINIC REFERENCE REPOSITORY TYPE CODE TESTS RESULT OUT OF REFERENCE UNITS RANGE LAB GLU(LOINC) 74-99 mg/dL Glucose High 170 LAB BUN(LOINC) 7-21 mg/dL BUN High 25 LAB CRET(LOINC 0.58-0.96 mg/dL ) Creatinine 0.89 LAB NA(LOINC) 136-144 mmol/L Sodium 142 LAB K(LOINC) 3.7-5.1 mmol/L Potassium 5.1 LAB CL(LOINC) 97-105 mmol/L Chloride 101 LAB CO2(LOINC) 22-30 mmol/L CO2 26 LAB AGAP(LOINC 9-18 mmol/L ) Anion Gap 15 LAB CA(LOINC) 8.5-10.2 mg/dL Calcium, High Total 10.7 LAB GFRAA(LOIN C) eGFR- >60 Amer. LAB GFRNAA(PATRICIO . NC) eGFR-All Other Races >60 LIPID PANEL, BASIC Collected: 08/04/2016 Status: F Source: [place] 8:31 AM CLINIC REFERENCE REPOSITORY TYPE CODE TESTS RESULT OUT OF REFERENCE UNITS RANGE LAB TRIGLY(PATRICIO 30-149 mg/dL NC) Triglyceride High 364 LAB CHOL(LOINC 100-199 mg/dL ) Cholesterol 135 LAB HDL(LOINC) >55 mg/dL Low HDL-Cholesterol 29 LAB VLDL(LOINC 6-40 mg/dL ) VLDL High Cholesterol 73 LAB LDL(LOINC) 60-129 mg/dL Low LDL-Cholesterol 33 LAB FT(LOINC) hrs Fasting Time 12 LAB TCHDL(LOIN 1.00-5.00 C) TC:HDL Ratio 4.66 LAB LDLHDL(PATRICIO 0.50-3.55 NC) LDL:HDL Ratio 1.14 LAB NONHDL(PATRICIO 90-159 mg/dL NC) Non HDL Cholesterol 106 HEMOGLOBIN A1C Collected: 08/04/2016 Status: F Source: [place] 8:31 AM CLINIC REFERENCE REPOSITORY TYPE CODE TESTS RESULT OUT OF REFERENCE UNITS RANGE LAB HGBA1C(PATRICIO 4.3-5.6 % NC) High Hemoglobin A1c 6.9 LAB HBA0(LOINC mg/dL ) Est. Average Glucose 151 ALLERGIES ALLERGIES DATE TYPE / CODE NAME / CODE REACTION SEVERITY SOURCE 02/23/2018 Drug No Known Unknown [facility] Allergy/4160 Allergies/F00 Hospital 49762(SNOMED 5777085(RXNOR Repository CT) M) ENCOUNTERS ENCOUNTERS ADMIT/DISCHARGE ACCOUNT NUMBER ADMITTING ENCOUNTER LOCATION SOURCE CLASS 02/23/2018/02/26/19 [id number] [place] ding:[id number] Repository : OT404Avm: 1 02/23/2018 [id number] [place], Ambulatory BMSBuilding: [place] BMS.[facility] Repository 02/23/2018 [id number] [place], Ambulatory BMSBuilding: [place] BMS.[facility] Repository 02/23/2018 [id number] [place], Ambulatory BMSBuilding: [place] BMS.[facility] Repository 02/23/2018 [id number] [place], Ambulatory BMSBuilding: [place] BMS.[facility] Repository 02/19/2018 [id number] Ambulatory [facility] ding:[facility] Repository 02/18/2018/02/18/19 [id number] Emergency [address] ding:ED Repository 01/17/2018 [id number] [place] [facility] [place] ng:H.PM 12/16/2017/12/17/19 [id number] Emergency [address] ding:ED Repository 12/11/2017 [id number] [place] [facility] [place] ng:H.PM 10/11/2017 [id number] Amb[place] [facility] [place] ng:H.PM 07/23/2017 [id number] [place] [facility] [place] ng:H.PM 06/12/2017/06/13/19 [id number] Emergency BBuilding:[address] Repository 06/09/2017/06/10/19 [id number] Ambulatory BMSBuilding: [address] Repository 06/09/2017/06/10/19 [id number] Ambulatory BMSBuilding: [address] Repository 06/08/2017/06/10/19 [id number] [facility], Ambulatory [address] ding:PCURoom Repository : [id number]: 1 06/08/2017 [id number] [facility], Ambulatory BMSBuilding: [facility] Repository 06/08/2017 [id number] [facility], Ambulatory BMSBuilding: [facility] Repository 05/23/2017 [id number] Inpatient [facility] Repository ng:H.PM 04/24/2017 [id number] [place] [facility] [place] ng:H.PM PAYERS PAYERS ENCOUNTER GUARANTOR PAYER SUBSCRIBER SOURCE 02/23/2018 MAGGIE [id number] [place] Insurance:KYLE PRUITT: [place] [id number] Number: Repository [id number]: (330 [id number] [phone] (HP) Date:1154-79-76WL [address] [place] [address] 94866BK: 02/23/2018 Secondary MAGGIE R Kelly Insurance:ANTHEMPolic JUSTICEDOB: Community y Number: [id number] House Health [id number] Repository Date:9024-08-03CU [address] [place] [address] 17902EP: 02/23/2018 Tertiary NOT GIVENUNK [place] Insurance:SELF PAY [facility] Number: Effective Repository Date:2018-02-23 02/23/2018 MAGGIE R Primary JACOBY M Kelly [id number] [place] Insurance:ANTHEM JUSTICEDOB: Community [place] [id number] ADV[place]APolicy Number: Repository [id number]: (330 [id number] [phone] (HP) Date:3148-85-13JH [address] [place] [address] 24306UI: 02/23/2018 Secondary MAGGIE R [place] Insurance:ANTHEMPolic JUSTICEDOB: Community y Number: [id number] House Health [id number] Repository Date:3416-44-86MI [address] [place] [address] 58168MW: 02/23/2018 Tertiary NOT GIVENUNK [place] Insurance:SELF PAY [facility] Number: Effective Repository Date:2018-02-23 02/23/2018 MAGGIE R Primary JACOBY M [place] [id number] [place] Insurance:ANTHEM JUSTICEDOB: Community [place] [id number] ADV[place]APolicy Number: Repository [id number]: (330) [id number] [phone] (HP) Date:2457-70-00CE [address] [place] [address] 25244XE: 02/23/2018 Secondary MAGGIE R [place] Insurance:ANTHEMPolic JUSTICEDOB: Community y Number: [id number] House Health [id number] Repository Date:2043-16-28JP [address] [place] [address] 24780IA: 02/23/2018 Tertiary NOT GIVENUNK [place] Insurance:SELF PAY [facility] Number: Effective Repository Date:2018-02-23 02/23/2018 MAGGIE R Primary MAGGIE R Kelly [id number] [place] Insurance:ANTHEMPolic JUSTICEDOB: [facility] y Number: [id number] Baptist Hospital-[id number] Repository 81608Krr: (330) Date:3043-23-03CE [phone] () [address] [place] [address] 67831MD: 02/23/2018 Secondary JACOBY M [place] Insurance:ANTHEM JUSTICEDOB: Community MEDICARE SENIOR [id number] Hospital ADVANTAPolicy Number: Repository [id number] Date:1039-06-03DW [address] [place] [address] 91920HE: 02/23/2018 Tertiary NOT GIVENUNK [place] Insurance:SELF PAY [facility] Number: Effective Repository Date:2018-02-23 02/23/2018 MAGGIE R Primary JACOBY M [place] [id number] [place] Insurance:ANTHEM JUSTICEDOB: Community [place] [id number] ADV[place]APolicy Number: Repository [id number]: 330 [id number] [phone] (HP) Date:8930-84-33TZ [address] [place] [address] 01624PM: 02/23/2018 Secondary MAGGIE R Kelly Insurance:ANTHEMPolic JUSTICEDOB: Community y Number: [id number] House Health [id number] Repository Date:1109-35-57KO [address]NGUMJQG, [place] [address]NM: 02/23/2018 Tertiary NOT GIVENUNK [place] Insurance:SELF PAY [facility] Number: Effective Repository Date:2018-02-23 02/19/2018 MAGGIE R Primary MAGGIE R [place] [id number] [place] Insurance:ANTHEMPolic JUSTICEDOB: [facility] y Number: [id number] Baptist Hospital-[id number] Repository 44425Wtr: (330) Date:8253-51-57UX [phone] () [id number] [place] [address]SH: 02/19/2018 Secondary JACOBY M [place] Insurance:ANTHEM JUSTICEDOB: Community MEDICARE SENIOR [id number] Hospital ADVANTAPolicy Number: Repository [id number] Date:9223-28-36JI [address]GAUDNV [place] [address]GG: 02/19/2018 Tertiary JACOBY M [place] Insurance:MEDICAIDPol JUSTICEDOB: [facility] Number: [id number] Hospital [id number] Repository Date:2018-02-19 02/19/2018 Tertiary NOT GIVENUNK [place] Insurance:SELF PAY [facility] Number: Effective Repository Date:2018-02-19 02/18/2018 MAGGIE R Primary MAGGIE R Kelly [id number] [place] Insurance:ANTHEMPolic JUSTICEDOB: [facility] y Number: [id number] Baptist Hospital-[id number] Repository 396[address]Rvi: (330) Date:8723-04-61YF [phone] () [id number] [place] [address] 84842PK: 02/18/2018 Secondary JACOBY M [place] Insurance:[facility] JUSTICEDOB: [facility] [id number] Hospital Number: Repository [id number] Date:8950-29-02MS [address] [place] [address] 632[address]SL: 02/18/2018 Tertiary JACOBY M [place] Insurance:ANTHEM JUSTICEDOB: Community MEDICARE SENIOR [id number] Hospital AD[facility]ANTSent[facility] Hospitaly Number: Repository [id number] Date:9456-23-04KE [address]TUPUDFK [place] [address]BH: 02/18/2018 Tertiary NOT GIVENUNK [place] Insurance:SELF PAY [facility] Number: Effective Repository Date:2018-02-18 01/17/2018 JACOBY Bailey Primary Insurance:[facility] JACOBY [facility] [id number] [facility] Number: Repository [place]MO k[place] [id number] 48[address]Yzd: (330) Date:7165-34-16Mju [phone] () Joe Saini[address] [address]RL: 12/16/2017 MAGGIE Coyne Primary JACOBY Baliey Kelly [id number] [place] Insurance:[facility] JUSTICEDOB: [facility] [id number] [id number] Hospital [place] Number: Repository 90[address]Lea: 330 [id number] [phone] (HP) Date:9336-59-65HP [address]IWUIUUC, [place] [address]FL: 12/16/2017 Secondary NOT GIVENUNK Kelly Insurance:SELF PAY [facility] Number: Effective Repository Date:2017-12-16 12/11/2017 JACOBY Bailey Primary Insurance:[facility] JACOBY [facility] [id number] [facility] Number: Repository [place] [id number]: (330) Date:1071-44-98Olp [phone] () Joe Healy[address] [address]FV: 10/11/2017 JACOBY M Primary Insurance:[facility] JACOBY Guzmán [id number] [facility] Number: Repository [place] [id number]: (330) Date:0222-69-55Oxh [phone] () Joe Healy[address] [address]NX: 07/23/2017 JACOBY M Primary Insurance:[facility] JACOBY [facility] [id number] [facility] Number: Repository [place]ISTA [place] [id number] [address]Vqn: (330) Date:9668-63-68Spx [phone] (HP) Joe Calderon [address] [place] [address]GC: 06/12/2017 JACOBY M Primary JACOBY M [facility] JUSTICEDOB: Insurance:ANTHEM JUSTICEDOB: Foundation MEDIB[facility]UEWell[facility]ar[facility] Hospitaly [id number] Repository [place] Number: [address] [facility] H[facility]PITALBAUTISTAELMDALE, [place] [id number] [place] [address]~[id number] Date:2017-06-12 20909Dzw: 330) @AO.COMTel: [phone] [phone] Name:ZACK Cheng ()Tel: (000) ()Tel: (547) 053733Yrojvmz, [place] [phone] (WP) [phone] () 565[address]ZN: 06/09/2017 Maggie Primary JACOBY Bailey Kelly [id number] [place] Insurance:ANTHEM JUSTICEDOB: [place] [id number] [place] ADV[place]APolicy Number: Repository [id number]: 330) [id number] [phone] (HP) Date:8838-32-21HJ NADIA [address] [place] [address] 17856PK: 06/09/2017 Secondary JACOBY M [place] Insurance:MEDICAIDPol JUSTICEDOB: [facility] Number: [id number] Hospital [id number] Repository Date:2017-06-08 06/09/2017 Tertiary NOT GIVENUNK [place] Insurance:SELF PAY [facility] Number: Effective Repository Date:2017-06-09 06/09/2017 Maggie Primary JACOBY Bailey Kelly [id number] [place] Insurance:ANTHEM JUSTICEDOB: [place] [id number] [place]APolicy Number: Repository [id number]: 330 [id number] [phone] (HP) Date:6001-81-74FI [address]SVSPDMN[address] [place] [address] 039[address]JA: 06/09/2017 Secondary JACOBY M [place] Insurance:MEDICAIDPol JUSTICEDOB: Community icy Number: [id number] Hospital [id number] Repository Date:2017-06-08 06/09/2017 Tertiary NOT GIVENUNK [place] Insurance:SELF PAY [facility] Number: Effective Repository Date:2017-06-09 06/08/2017 Maggie Primary JACOBYHER Leo Hernándezoster [id number] [place] Insurance:ANTHEM JUSTICEDOB: [place] [id number] [place]AP[place] Number: Repository [id number]: 330 [id number] [phone] (HP) Date:0469-19-47WB [address]AOVRBWG[address] [place] [address] 61165DR: 06/08/2017 Secondary JACOBY M Kelly Insurance:MEDICAIDPol JUSTICEDOB: Community icy Number: [id number] Hospital [id number] Repository Date:2017-06-08 06/08/2017 Tertiary NOT GIVENUNK Kelly Insurance:SELF PAY [facility] Number: Effective Repository Date:2017-06-08 06/08/2017 Maggie Primary JACOBY M [place] [id number] [place] Insurance:ANTHEM JUSTICEDOB: [place] [id number] [place] AD[place]APolicy Number: Repository [id number]: 330 [id number] [phone] (HP) Date:0321-86-67BN [address]UCBVDPN [place] [address]FY: 06/08/2017 Secondary JACOBY M [place] Insurance:MEDICAIDPol JUSTICEDOB: Community icy Number: [id number] Hospital [id number] Repository Date:2017-06-08 06/08/2017 Tertiary NOT GIVENUNK [place] Insurance:SELF PAY Community [facility] Number: Effective Repository Date:2017-06-08 06/08/2017 Maggie Primary JACOBY Bailey Kelly [id number] [place] Insurance:ANTHEM JUSTICEDOB: Community [place] MED[place] SENIOR [id number] Hospital RdSmitbautista [place] ADVANTAPolicy Number: Repository [id number]: (330) [id number] (HP) Date:[id number] [id number] [place] [address]WR: 06/08/2017 Secondary JACOBY Bailey Kelly Insurance:MEDICAIDPol JUSTICEDOB: Community y Number: [id number] [id number] Repository Date:2017-06-08 06/08/2017 Tertiary NOT GIVENUNK Kelly Insurance:SELF PAY [facility] Number: Effective Repository Date:2017-06-08 05/23/2017 JACOBY Bailey Primary Insurance:[facility]Y [facility] [id number] [facility] Number: Repository [place], [place] [id number]: (330) Date:[id number] [phone] (HP) Rosariokarthikraul [address] [address]VM: 04/24/2017 JACOBY Bailey Primary Insurance:[facility] JACOBY [facility] [id number] [facility] Number: Repository [place], [place] [id number]: (330) Date:[id number] [phone] (HP) Rosario[address] [address]XF:
== END 2018-02-26 15:18 | disposition home or self-care (01) | DRG 670 ==
LOC: ED 22:59 → MS3 02-24 00:20
PROVIDERS: Anesthesiology; Urology; Admitting Provider Family Medicine; Emergency Provider Emergency Medicine; Family Provider Nurse Practitioner Family; PCP Nurse Practitioner Family; Referring Provider Family Medicine; Visit Provider Internal Medicine
PROC: 0TJ98ZZ Inspection of Ureter, Via Natural or Artificial Opening Endoscopic (ICD-10-PCS; CPT 52352; principal; 2018-02-25 11:50)
DX: N13.2 Hydronephrosis with renal and ureteral calculous obstruction (principal); N17.9 Acute kidney failure, unspecified; E11.9 Type 2 diabetes mellitus without complications; E78.5 Hyperlipidemia, unspecified; E66.9 Obesity, unspecified; I10 Essential (primary) hypertension; F17.210 Nicotine dependence, cigarettes, uncomplicated; K59.00 Constipation, unspecified; K21.9 Gastro-esophageal reflux disease without esophagitis; N39.0 Urinary tract infection, site not specified; G89.29 Other chronic pain; M54.9 Dorsalgia, unspecified; J44.9 Chronic obstructive pulmonary disease, unspecified; Z68.32 Body mass index [BMI] 32.0-32.9, adult; Z79.84 Long term (current) use of oral hypoglycemic drugs
CPT/HCPCS: 36415; 74176; 80048; 81001; 82962; 83036; 83735; 85025; 93005; 94640; 99282; 99406; J7030; A4216; J2405

== ENCOUNTER → 2018-03-12 09:33 | Outpatient (CLI) | payer MEDICARE, BC, SELFPAY ==
[2018-02-25 10:47] VITALS: BMI 32.5
--- NOTE | 2018-03-12 09:36 | RAD_ITS ---
STUDY: X-RAY - ABDOMEN/PELVIS REASON FOR EXAM: Female, 57 years old. Left-sided kidney stone follow-up. Right-sided pain. TECHNIQUE: Two AP supine views of the abdomen and pelvis. COMPARISON: CT abdomen pelvis 02/23/2018. FINDINGS: There is obesity, the entirety of soft tissue is not imaged. There is an unremarkable bowel gas pattern. There is no demonstrated free abdominal air. Status post cholecystectomy. Stable enlarged liver. The distal left ureteral calculus at the sacroiliac joint level as seen on CT is not visualized on current exam. Normal soft tissue structures. There are diffuse degenerative changes of the visualized lumbar spine, sacroiliac and joints with postsurgical changes lower lumbar spine and laminectomy.. RAD/Abdomen Single View IMPRESSION: Previously seen obstructing distal left ureteral calculus is not visualized currently. The previously seen small nonobstructing right mid renal calculus is not visualized. Hepatomegaly, cholecystectomy, postsurgical osseous changes, obesity, nonobstructive bowel gas pattern. Electronically Signed: Yovana Greenwood MD at 5:59 EST , Service support ,
== END ==
PROVIDERS: Family Provider Nurse Practitioner Family; PCP Nurse Practitioner Family; Referring Provider Urology; Visit Provider Urology
DX: N20.0 Calculus of kidney (principal)
CPT/HCPCS: 74018

== ENCOUNTER 2018-06-21 09:08 | Emergency (ER) | payer OTHER, MEDICARE, SELFPAY ==
[2018-02-25 10:47] VITALS: BMI 32.5
[2018-06-21 09:08] VITALS: BP 159/84; PULSE 72; RESP 17; TEMP 35.7; O2SAT 95; BMI 32.8
--- NOTE | 2018-06-21 09:45 | ED.VIS.BACK ---
History of Present Illness Chief Complaint: Back Informant: Patient, Significant Other Onset: Yesterday - Worse Context: Sudden Onset Injury: - - Patient states she was sitting when the discomfort started Timing: Continuous Quality: Dull Location: Lumbar, Buttock, Left Leg - Posterior left leg to toes Current Severity: Mild Maximum Severity: Moderate Relieved by: Nothing Associated Symptoms: - - Patient reports chronic numbness left leg. She denies bowel bladder dysfunction. She denies saddle paresthesia or anesthesia. She denies foot drop. She denies weakness in her quadricep muscles going up or down steps. She would prefer to stand versus sitting. Narrative: Patient is a middle-aged woman with history of L5-S1 fusion by Dr. Prince Massey. She recently had cervical disc surgery with an anterior approach. She presents because exacerbation of chronic low back pain with radicular pain. Only new symptom is increased pain. Prior similar symptoms: Yes Recent Illness/Hospitalization: Yes Past Medical History - Allergies and Home Meds Allergies/Adverse Reactions: Allergies No Known Allergies Allergy (Verified 06/21/18 09:12) Primary Care Physician: Darlene Plascencia NP-C [Primary Care Provider] - Doctor,Your [STAFF PHYSICIAN] - 5-7 Days Prior records reviewed: Yes Surgical History: noncontributory, - - Appendectomy, cholecystectomy, hysterectomy, right shoulder surgery, lumbar back surgery. Lives: Spouse/ Significant Other Smoking Status: Current every day smoker Alcohol: None Drugs: None - Family History Maternal Family History: Reports: Diabetes, Hypertension Paternal Family History: Reports: Diabetes, Heart Disease, Hypertension Review of Systems General: Denies: Chills, Fever, Sweats Eyes: Denies: Visual changes - bilaterally, Blurred Vision - bilaterally, Diplopia ENT: Denies: Rhinorrhea, Sore throat Cardiovascular: Denies: Chest pain, Palpitations Respiratory: Denies: Dyspnea, Cough, Dyspnea on exertion Gastrointestinal: Denies: Abdominal pain, Nausea, Vomiting, Diarrhea, Constipation, Melena, Hematochezia, -, - Genitourinary: Denies: Dysuria, Hematuria, Frequency Musculoskeletal: Reports: Back pain, Extremity Pain. Denies: Myalgias, Arthralgias, Neck pain, Swelling Skin: Denies: Rash, Wounds Neurological: Reports: Parasthesia - Left lower extremity, which is chronic, Numbness - Left lower extremity, which is chronic, -. Denies: Headache, Weakness Endocrine: Denies: Polyuria, Polydipsia Hematologic: Denies: Easy bruising, Easy bleeding Allergy: Denies: Uticaria, Swelling of the mouth Physical Exam Vital Signs/Narrative: Vital Signs Temp Pulse Resp BP Pulse Ox 06/21/18 09:08 96.2 F L 72 17 159/84 H 95 Inital Vital Signs reviewed: Yes General: Well nourished, Well developed, Obese Head: Normocephalic, Atraumatic Eyes: Perrl, EOMI. Negative for: Pale conjunctiva, Scleral icterus, - ENT: Moist mucous membranes, No rhinorrhea Cardiovascular: Regular rate, Regular rhythm, No murmurs, Normal S1, Normal S2 Abdomen: Soft, Nontender, Nondistended, Normal bowel sounds, No masses Rectal: Deferred Back: Normal Inspection, Nontender, Surgical Scar, Well-Healed, Negative SLR - Right, Positive SLR - Left, - - Negative crossover test. Negative for: Spinal tenderness, Paraspinal Tenderness, CVA tenderness, Positive SLR - Right, Negative SLR - Left Extremeties: Nontender, No edema, Strong Pulses - 2+ PT and DP, Symmetric. Negative for: Tenderness Skin: Normal color, No rash, No Trauma. Negative for: Cyanosis, Jaundice Neuro: Alert, Oriented, Normal Strength, Normal Sensation, Normal DTR. Negative for: Normal Gait - Slight limp noted. Patient able to walk on heels and toes. Patient able to perform 1 legged squat right and left. Reflexes: Right Patellar, Right Achilles, Left Patellar, Left Achilles, - - Patella and ankle reflex are 2+ and symmetric. EHL is intact bilaterally.. Negative for: Right Clonus, Right Babinski, Left Clonus, Left Babinski Psychological: Depressed Diagnostic/Tx/Re-eval - Medical Decision Making With positive straight leg test and pain consistent with sciatica will treat her pain with 4 mg of morphine and 15 mg of Toradol IV push. She also received 4 mill grams of Zofran to prevent nausea and vomiting secondary to morphine. Goal is to control pain. She does have opiate analgesia at home. Since there is no history of trauma imaging was not obtained. She does not meet criteria for emergent MRI. Patient was reassessed at 1040. She reports improvement. She will receive an additional dose of morphine and will reassess in 30 to 60 minutes. ED Disposition - Plan for ED Patient: Disposition: Home or Assisted Living Diagnosis: Acute left-sided low back pain without sciatica Instructions: ED Sciatica Referrals: Darlene Plascencia NP-C [Primary Care Provider] - Doctor,Your [STAFF PHYSICIAN] - 5-7 Days
[2018-06-21] MEDS: Morphine 4 MG/ML Syringe IV ×2 (09:50→11:32)
[2018-06-21] MEDS: Ketorolac 15 MG/ML Vial IV (09:50)
[2018-06-21] MEDS: Ondansetron 4 MG/2 ML Vial IV (09:50)
[2018-06-21 11:51] VITALS: BP 124/69; PULSE 77; RESP 15; O2SAT 98
== END 2018-06-21 11:52 | disposition home or self-care (01) ==
PROVIDERS: Emergency Provider Emergency Medicine; Family Provider Nurse Practitioner Family; PCP Nurse Practitioner Family
DX: M54.5 Low back pain (principal); G89.29 Other chronic pain; Z98.1 Arthrodesis status; F17.200 Nicotine dependence, unspecified, uncomplicated
CPT/HCPCS: 96374; 96375; 96376; 99283; A4216; J2405

== ENCOUNTER 2018-07-06 07:56 | Emergency (ER) | payer OTHER, MEDICARE, SELFPAY ==
[2018-07-06 07:58] VITALS: BP 113/76; PULSE 80; RESP 16; TEMP 36.6; O2SAT 97; BMI 32.8
--- NOTE | 2018-07-06 08:19 | ED.DCSUM_ITS ---
- ER Visit Summary Date of Service: 07/06/18 Chief Complaint: Back pain History of Present Illness: The patient is a 57 F who presents with back pain that has been getting worse over the past 3 days. Patient was seen here recently and was given injections of morphine and Toradol. Patient states this did help initially. Patient states she followed up with her pain management physician who prescribed a Medrol Dosepak. Patient states this is not helping much. Patient states it has caused her blood sugars to be elevated. Patient states she fell after her recent cervical fusion surgery. Patient denies any recent trauma or injury. Patient states the pain is over the lower lumbar area and radiates to her buttock and down to her left foot. Patient admits to some numbness and tingling in her foot. Patient denies any bowel or bladder changes. Patient denies any saddle anesthesia. Physical Examination: Vital signs are stable. Patient is afebrile. Patient is in no acute distress. Musculoskeletal exam reveals tenderness and spasm of the left lumbar paraspinal muscles. There is no bony crepitance or step-off. Range of motion was limited in all motions of the lumbar spine secondary to pain. Straight leg was positive on the left at approximately 60 degrees of flexion. Strength is 5/5 bilaterally in the lower extremities. Deep tendon reflexes were 2+/4 in the patellar and Achilles reflexes bilaterally. Emergency Department Course and Treatment: Patient was given an injection of morphine, Norflex, and Toradol. Patient was given repeat dose of morphine. Patient states that she felt somewhat better after this while she is laying flat. Patient states she does have increasing pain with movement. Patient was given a dose of Dilaudid. Patient was instructed to continue her pain medications at home. Patient was instructed to follow-up with her pain management physician in 5 to 7 days. Patient understood and was agreeable with the plan. All questions were answered. Disposition: Discharge home Impression: 1. Acute exacerbation of chronic back pain This note was generated with [employer] dictation software. It may contain incorrect words, spelling, and punctuation that were not noted in review of the chart prior to signing ED Disposition - Plan for ED Patient: Disposition: Home or Assisted Living Diagnosis: Acute exacerbation of chronic low back pain Instructions: ED Neck Back Pain General Referrals: Darlene Plascencia, MIKHAIL-C [Primary Care Provider] - 3-5 Days
[2018-07-06] MEDS: Morphine 4 MG/ML Syringe IM ×2 (08:40→10:07)
[2018-07-06] MEDS: Orphenadrine 60 MG/2 ML Ampul IM (08:41)
[2018-07-06] MEDS: Ketorolac 15 MG/ML Vial IM (08:41)
[2018-07-06] MEDS: HYDROmorphone 0.5 MG/0.5 ML SYRINGE IM (11:24)
[2018-07-06 11:34] VITALS: BP 124/67; PULSE 67; RESP 18; O2SAT 96
== END 2018-07-06 11:35 | disposition home or self-care (01) ==
LOC: ED 08:26
PROVIDERS: Emergency Provider Emergency Medicine; Family Provider Nurse Practitioner Family; PCP Nurse Practitioner Family
DX: M54.5 Low back pain (principal); G89.29 Other chronic pain; E11.9 Type 2 diabetes mellitus without complications; Z79.84 Long term (current) use of oral hypoglycemic drugs; Z79.82 Long term (current) use of aspirin; Z79.899 Other long term (current) drug therapy; Z72.0 Tobacco use
CPT/HCPCS: 96372; 99282

== ENCOUNTER → 2018-11-01 13:03 | Outpatient (CLI) | payer OTHER, MEDICARE, SELFPAY ==
--- NOTE | 2018-11-01 13:05 | BI_ITS ---
MAMMOGRAPHY - BILATERAL SCREENING REASON FOR EXAM: Female, 58 years old. Routine annual screening examination. PERTINENT HISTORY: Grandmother with breast cancer. Remote right stereotactic breast biopsy. TECHNIQUE: Digital bilateral breast todd (3D mammographic acquisition) in the CC and MLO projections. 2-D mediolateral oblique (MLO) and craniocaudad (CC) views of both breasts were obtained. CAD: Full Field Digital Mammography with Computer Added Detection was performed. COMPARISON: Comparison is made with prior study dated February 19, 2017 and February 14, 2013. FINDINGS: Breast Composition: The breasts are almost entirely fatty. There are no dominant masses or suspicious calcifications. A tissue clip marker is seen in the inferior central portion of the right breast. No other significant abnormalities are identified. There has been no significant change since the prior study. BI/SCREEN MAMM (CAD) W/TODD BILAT IMPRESSION: Stable bilateral screening mammogram. Yearly follow-up mammogram recommended. (A) ASSESSMENT CATEGORY: BIRADS Category 2: Benign. A letter regarding these results will be sent to the patient by the facility within 30 days. Approximately 10% of breast cancers are not detected by mammography. A normal mammogram should not delay biopsy of a clinically suspicious abnormality. [id number] Electronically Signed: Zafar Sue, at 10:32 EDT , Service support ,
== END ==
PROVIDERS: Family Provider Nurse Practitioner Family; PCP Nurse Practitioner Family
DX: Z12.31 Encounter for screening mammogram for malignant neoplasm of breast (principal); Z80.3 Family history of malignant neoplasm of breast
CPT/HCPCS: 77063; 77067

== ENCOUNTER → 2019-09-12 08:50 | Outpatient (CLI) | payer MEDICARE, SELFPAY ==
[2019-09-12 09:09] LABS: Hematocrit 42.7 % (37-47); Hemoglobin 13.9 g/dL (12.0-15.0); Mean Corp Hgb Conc 32.6 g/dL (32-36); Mean Corpuscular Hgb 32.4 pg (27.0-32.0); Mean Corpuscular Volume 99.5 fL (81-99); Mean Platelet Vol. 10.7 fl (6.2-12.0); Platelet Count 188 K/mm3 (150-450); RBC Distribution Width CV 14.2 % (11.6-14.6); RBC Distribution Width SD 52.3 fl (35.1-43.9); Red Blood Count 4.29 M/mm3 (4.2-5.4); White Blood Count 7.1 K/mm3 (4.4-11.0)
[2019-09-12 09:27] LABS: ALB/GLOB Ratio 0.7 RATIO (0.9-2.4); AST(SGOT) 49 U/L (15-37); Alanine Aminotransfer ALT/SGPT 48 U/L (13-56); Albumin, Serum 3.4 g/dL (3.2-5.0); Alkaline Phosphatase 49 U/L (45-117); Anion Gap 7 (5-15); BUN 11 mg/dL (7-18); BUN/Creat Ratio 11.8 RATIO (10-20); Calcium,Total 10.5 mg/dL (8.5-10.1); Chloride 102 mmol/L (98-107); Cholesterol 121 mg/dL (200); Creatinine, Serum 0.94 mg/dL (0.55-1.02); EST Glomerular Filtration Rate 65 mL/min (>60); Est Glom Filt Rate - Afr Amer 78 mL/min (>60); Globulin 4.6 g/dL (2.2-4.2); Glucose 161 mg/dL (74-106); High Density Lipoprotein 44 mg/dL; Potassium 4.4 mmol/L (3.5-5.1); Sodium Level 137 mmol/L (136-145); Triglycerides 166 mg/dL; Very Low Density Lipoprotein 33 mg/dL (5-40)
[2019-09-12 09:30] LABS: Hemoglobin A1c 7.5 % (3.8-5.6)
== END ==
PROVIDERS: PCP Nurse Practitioner Family; Referring Provider Nurse Practitioner Family; Visit Provider Nurse Practitioner Family
DX: E11.65 Type 2 diabetes mellitus with hyperglycemia (principal); I10 Essential (primary) hypertension; E78.2 Mixed hyperlipidemia
CPT/HCPCS: 36415; 80053; 80061; 83036; 85027

== ENCOUNTER 2019-10-12 20:29 | Emergency (ER) | payer MEDICARE, SELFPAY ==
[2019-10-12 20:30] VITALS: BP 143/91; PULSE 100; RESP 18; TEMP 36.7; O2SAT 97; BMI 34.3
--- NOTE | 2019-10-12 20:47 | ED.DCSUM_ITS ---
History of Present Illness Chief Complaint: Upper Extremity Injury Informant: Patient Onset: Today Current Severity: Moderate Maximum Severity: Moderate Narrative: She presents after mechanical fall at home. She was wearing some [id number] slippers and fell. She did put her right hand out to catch her self. She is complaining of pain to the right wrist as well as abrasions to the left forearm. She did not strike her head or lose consciousness. She is not on anticoagulants. - Past Medical History (1) Nephrolithiasis Status: Resolved (2) COPD (chronic obstructive pulmonary disease) Status: Chronic (3) Chronic back pain Status: Chronic (4) Diabetes mellitus type 2 in obese Status: Chronic (5) GERD (gastroesophageal reflux disease) Status: Chronic (6) Hypertension Status: Chronic Past Medical History - Allergies and Home Meds Allergies/Adverse Reactions: Allergies No Known Allergies Allergy (Verified 10/12/19 20:32) Primary Care Physician: Darlene Plascencia COMPUTER NUMERICAL CONTROL PROGRAMMER, COMPUTER NUMERICAL CONTROL PROGRAMMER-C [Primary Care Provider] - Surgical History: noncontributory, - - Appendectomy, cholecystectomy, hysterectomy, right shoulder surgery, lumbar back surgery. Lives: Spouse/ Significant Other Smoking Status: Never smoker - Family History Maternal Family History: Reports: Diabetes, Hypertension Paternal Family History: Reports: Diabetes, Heart Disease, Hypertension Review of Systems General: Denies: Chills, Fever Eyes: Denies: Visual changes - bilaterally ENT: Denies: Bilateral ear pain Cardiovascular: Denies: Chest pain Respiratory: Denies: Dyspnea, Cough Gastrointestinal: Denies: Abdominal pain, Nausea, Vomiting, Diarrhea Musculoskeletal: Reports: Extremity Pain Skin: Reports: Wounds Neurological: Denies: Headache Hematologic: Denies: Easy bruising, Easy bleeding Allergy: Denies: Uticaria Physical Exam Vital Signs/Narrative: Vital Signs Temp Pulse Resp BP Pulse Ox 10/12/19 20:30 98.1 F 100 18 143/91 H 97 Inital Vital Signs reviewed: Yes General: Well nourished, Well developed Head: Normocephalic, Atraumatic Eyes: EOMI ENT: Moist mucous membranes Neck: Supple, - - No C-spine tenderness. Cardiovascular: Regular rate, Regular rhythm Respiratory: No distress, CTA bilaterally Abdomen: Soft, Nontender, Nondistended Extremities: - - Diffuse tenderness around the right wrist. No obvious de formity. Palpable pulses noted. Good cap refill and sensation distally. She can wiggle fingers. No tenderness at the elbow or shoulder. Abrasions noted to the mid left forearm without bony tenderness. Neurological: Alert, Oriented x3 Psychological: Normal affect Diagnostic/Tx/Re-eval Impressions Wrist X-Ray 10/12/19 21:05 IMPRESSION: 1. Unremarkable wrist. Electronically Signed: Darcy Henderson, at 21:17 EDT Tel , Service support , 10/12/19 21:05 Wrist min 3 Views [RAD] Stat - Medical Decision Making She was given 1 tab of Thorp here. Left forearm abrasions are cleansed and dressed by nursing staff. Right wrist x-ray reveals no evidence of fracture. She will be placed in a Velcro wrist splint. She follows with an orthopedic doctor in [place] as needed and will see them as needed. ED Disposition - Plan for ED Patient: Disposition: Home or Assisted Living Diagnosis: Fall, Wrist sprain Instructions: ED Sprain Wrist Referrals: Darlene Plascencia COMPUTER NUMERICAL CONTROL PROGRAMMER, COMPUTER NUMERICAL CONTROL PROGRAMMER-C [Primary Care Provider] - 1 Week if not improving Additional Instructions: You can follow-up with your orthopedist in [place] if not improving.
--- NOTE | 2019-10-12 21:05 | RAD_ITS ---
STUDY: X-RAY - RIGHT WRIST REASON FOR EXAM: Female, 59 years old. Fall right wrist pain TECHNIQUE: 3 view(s) of the wrist were obtained. COMPARISON: None. FINDINGS: The bones of the wrist are intact and located. Mineralization is normal. Soft tissues are intact. RAD/Wrist min 3 Views IMPRESSION: 1. Unremarkable wrist. Electronically Signed: Darcy Henderson, at 21:17 EDT Tel , Service support ,
[2019-10-12] MEDS: HYDROcodone Bitartrate/Apap 5/325 Tablet PO (21:17)
[2019-10-12] MEDS: Diphth,Pertuss(Acell),Tet Vac 0.5 ML Vial IM (21:17)
[2019-10-12 21:32] VITALS: BP 126/62; PULSE 90; RESP 15; O2SAT 96
== END 2019-10-12 21:51 | disposition home or self-care (01) ==
PROVIDERS: Emergency Provider Emergency Medicine; PCP Nurse Practitioner Family
DX: S63.501A Unspecified sprain of right wrist, initial encounter (principal); E66.9 Obesity, unspecified; W19.XXXA Unspecified fall, initial encounter
CPT/HCPCS: 73110; 90471; 90715; 99283

== ENCOUNTER → 2019-10-15 15:27 | Outpatient (CLI) | payer MEDICARE, SELFPAY ==
[2019-10-12 20:30] VITALS: BMI 34.3
--- NOTE | 2019-10-15 15:31 | RAD_ITS ---
STUDY: X-RAY - RIGHT WRIST REASON FOR EXAM: Female, 59 years old. RIGHT WRIST PAIN AFTER FALL 2 DAYS AGO TECHNIQUE: 2 view(s) of the wrist were obtained. COMPARISON: None. FINDINGS: There is a nondisplaced ulnar styloid process fracture. Normal radiocarpal articulation. Normal distal radioulnar articulation. Normal carpal bones. Normal carpal articulations. Normal carpometacarpal articulation of the thumb. Normal second through fifth carpometacarpal articulations. Normal visualized metacarpal bones. The soft tissue structures are unremarkable. RAD/Wrist 2 Views IMPRESSION: Nondisplaced ulnar styloid process fracture. Electronically Signed: Aly Hunt MD at 16:17 EDT , Service support ,
--- NOTE | 2019-10-15 15:38 | RAD_ITS ---
STUDY: X-RAY - RIGHT RADIUS AND ULNA REASON FOR EXAM: Female, 59 years old. RIGHT FOREARM PAIN AFTER FALL 2 DAYS AGO TECHNIQUE: 2 view(s) of the forearm. COMPARISON: None. FINDINGS: There is no demonstrated soft tissue swelling. Normal visualized radius. Normal visualized ulna. RAD/Forearm 2 Views IMPRESSION: Normal x-ray examination of the radius and ulna. Electronically Signed: Aly Hunt MD at 16:15 EDT , Service support ,
== END ==
PROVIDERS: PCP Nurse Practitioner Family; Referring Provider Nurse Practitioner Family; Visit Provider Nurse Practitioner Family
DX: M79.601 Pain in right arm (principal)
CPT/HCPCS: 73090; 73100

== ENCOUNTER 2019-11-17 06:58 | Day surgery (SDC) | payer MEDICARE, SELFPAY ==
[2019-10-30 09:49] VITALS: BMI 34.3
--- NOTE | 2019-11-17 06:00 | HP_ITS ---
Intake Vital Signs 10/30/19 BMI 34.3 10/30/19 Height 5 ft 10/30/19 Weight: 173 lb 4 oz 10/30/19 BMI 33.8 10/30/19 BP 131/84 H 10/30/19 Blood Pressure Location Lt brachial 10/30/19 Position Sitting 10/30/19 Respiration 20 H 10/30/19 Pulse 103 H 10/30/19 Pulse Source Monitor 10/30/19 Temp 97.8 F 10/30/19 Temp Source Temporal 10/30/19 Pulse Oximetry (%) 95 10/30/19 Oxygen Delivery Method room air Intake Visit Reasons: CSCOPE/ EGD, GERD, CONSTIPATION Chief Complaint: c-scope/EGD consult [employer]acer Required: No Accompanied by: Is patient in pain?: No Allergies No Known Allergies Allergy (Verified 10/30/19 09:36) Medications Losartan Potassium [Cozaar] 25 mg PO DAILY 06/13/13 [History Confirmed 10/30/19] Multivitamins,Therapeutic [Multivitamin] 1 tab PO DAILY 06/13/13 [History Confirmed 10/30/19] Pravastatin [Pravachol] 80 mg PO QHS 06/13/13 [History Confirmed 10/30/19] Pregabalin [Lyrica] 200 mg PO BID 06/13/13 [History Confirmed 10/30/19] Aspirin [Aspirin, Baby] 81 mg PO DINNER 01/16/14 [History Confirmed 10/30/19] Cholecalciferol (VIT D3) [Vitamin D3] 1,000 unit PO DAILY 01/16/14 [History Confirmed 10/30/19] Albuterol Sulfate [Ventolin Hfa] 2 puff INHALATION Q4H PRN PRN 06/08/17 [History Confirmed 10/30/19] Duloxetine HCl 30 mg PO DAILY 06/08/17 [History Confirmed 10/30/19] metFORMIN HCl [Glucophage] 500 mg PO BID #30 tab 06/09/17 [Rx Confirmed 10/30/19] Ascorbic Acid/Ascorbate Sodium [Vitamin C 500 mg Wafer] 500 mg PO TID 02/24/18 [History Confirmed 10/30/19] Acetaminophen [Tylenol Tablet] 650 mg PO Q6H PRN PRN tab 02/26/18 [Rx Confirmed 10/30/19] dexlansoprazole 60 mg capsule,biphase delayed release 60 mg PO QHS 10/30/19 [History Confirmed 10/30/19] insulin glargine 100 unit/mL subcutaneous solution 20 unit SC QPM 10/30/19 [History Confirmed 10/30/19] lansoprazole 15 mg capsule,delayed release 15 mg PO DAILY 10/30/19 [History Confirmed 10/30/19] meloxicam 7.5 mg tablet 7.5 mg PO DAILY 10/30/19 [History Confirmed 10/30/19] oxycodone myristate 13.5 mg capsule sprinkle extend release 12hr(DON'T CRUSH) 13.5 mg PO BID 10/30/19 [History Confirmed 10/30/19] oxycodone-acetaminophen 5 mg-325 mg tablet 1 tab PO TID PRN 10/30/19 [History Confirmed 10/30/19] pregabalin 200 mg capsule 200 mg PO BID 10/30/19 [History Confirmed 10/30/19] PFSH Medical History Depression with anxiety (Acute) Fracture of right wrist (Acute) Arthritis (Acute) History of back problems (Acute) Diabetes mellitus type 2 in obese (Chronic) Atypical chest pain (Acute) Hypertension (Chronic) Chronic back pain (Chronic) GERD (gastroesophageal reflux disease) (Chronic) COPD (chronic obstructive pulmonary disease) (Chronic) Nephrolithiasis (Resolved) REINALDO (acute kidney injury) (Acute) Obesity (BMI 30.0-34.9) (Chronic) Tobacco use (Chronic) Surgical History History of (Acute) History of cholecystectomy (Acute) History of discectomy (Acute) History of fusion of cervical spine (Acute) History of hysterectomy (Acute) history right shoulder surgery (Acute) Family History Mother Arthritis Diabetes Heart disease Hypertension High cholesterol Sister Asthma Arthritis Diabetes Grandmother Colon cancer Aunt Lupus Daughter Seizures Social History (Updated 11/05/19 @ 12:[address] Saulo Torres MD) Smoking Status: Never smoker alcohol intake: never substance use type: does not use HPI HPI HPI: JACOBY COOK, is a 59 F who presents to the office today for HPI HPI Surgical H&P: Yes HPI: JACOBY COOK, is a 59 F who presents to the office today for Evaluation for endoscopy. Patient has been experiencing some epigastric abdominal pain with meals. She has occasional nausea and vomiting but no blood in no signs of coffee grounds. She is also been noticing some right lower quadrant abdominal discomfort with her bowel movements she has a history of constipation she has had no blood in her stools. The last time she has had any scopes was in 1985 both an upper and lower but I do not have any reports from this. ROS General General: Yes fatigue; no weight change, appetite, colon cancer, breast cancer or weakness HEENT HEENT: Yes difficulty swallowing and eye surgery; no eye injury, swollen glands or hoarseness Endo Endocrine: Yes diabetes mellitus; no thyroid disease, thyroid cancer, Hair loss, heat intolerance or cold intolerance Skin Skin: No rash or changing moles Breast Breast: No left breast lump, right breast lump, nipple discharge, breast pain, abnormal mammogram, abnormal US or breast enlargement Musc Musculoskeletal: Yes back problems and arthritis; no rheumatoid arthritis, gout or joint pain Cardio Cardiovascular: Yes high blood pressure; no murmur, pacemaker, heart disease, atrial fibrillation, heart attack, heart stent, palpitations, shortness of breat with exertion or chest pain Psych Psychiatric: Yes depression and anxiety; no hearing voices Resp Respiratory: No shortness of breath, No sleep apnea, No cough, Yes COPD, No asthma, No emphysema, No wheezing Gastro Gastrointestinal: Yes abdominal pain, Yes nausea or vomiting, Yes diarrhea, Yes constipation, No blood in stool, Yes acid reflux, Yes hemorrhoids, No ulcers, No gallbladder problem, No black,tarry stools Eulogio Hematologic: Yes blood thinners, No blood disorders, No bleeding, No anemia, No blood clots Neuro Neurologic: No system reviewed and no additional complaints, except as docu, No as per HPI, No abnormal walking, No abnormal hearing, No abnormal movements, No abnormal speech, No behavioral changes, No burning sensations, No confusion, No seizure-like activity, No unsteadiness, No dizziness, No localized weakness, No frequent falls, No headache(s), No lack of coordination, No loss of vision, No memory loss, Yes numbness, No other visual disturbances, No radiating pain, No restless legs, No sensory deficit, No fainting, Yes tingling, No tremor(s), No weakness, No other Exam Const General: no acute distress, well developed, well hydrated Orientation: oriented to person, oriented to place, oriented to time [facility] Head: normocephalic, atraumatic Ears: external ears normal Mouth: moist mucous membranes Eyes Sclera: sclerae normal Pupils: normal by confrontation Neck Neck: no lymphadenopathy noted Neck mass: No Thyroid: thyroid normal, symmetrical Chest Chest palpation & inspection: normal inspection of the chest Breast Palpation: No nipple discharge Resp Effort & Inspection: normal respiratory effort Auscultation: clear to auscultation bilaterally Percussion: percussion normal Cardio Rate: regular rate Rhythm: regular rhythm Heart Sounds: no murmurs GI Palpation: soft, no hepatosplenomegaly, no masses, nontender Rectal Exam: other Other: Rectal exam deferred. Extrem General: normal to inspection, no clubbing, cyanosis or edema Assessment & Plan Problems 1. Epigastric pain R10.13 2. Nausea and vomiting, intractability of vomiting not specified, unspecified vomiting type R11.2 3. Encounter for screening colonoscopy Z12.11 Plan I have discussed the above with the patient. I have offered the patient colonoscopy As well as an EGD for evaluation. I have explained the risks/benefits of the procedure and described the procedure. I have discussed the risks with the patient, including but not limited to: infection, bleeding, perforation of the GI tract requiring emergency surgery, inability to complete the procedure, injury to any internal organs, complications of anesthesia, etc. - the patient understands and agrees to proceed. I have answered all the patient's questions to the patient's satisfaction and the patient has no further questions. The patient has been given instructions for the colon cleansing preparation. Coding Level of Care Code Off vis,new,level 3 Diagnoses Epigastric pain R10.13 Nausea and vomiting, intractability of vomiting not specified, unspecified vomiting type R11.2 ??Vomiting type: unspecified ??Vomiting Intractability: unspecified Encounter for screening colonoscopy Z12.11 COVID (Procedure Consent) Procedure Criteria Procedure Criteria: Yes Elective The surgeon/proceduralist and patient have discussed in detail the risk of exposure to and/or potential harm posed by the COVID-19 virus with having a surgery/procedure at this time versus the risk of? delaying the surgery/procedure. It is not possible to know either the risk of delaying the surgery or procedure or chance of getting an infection with perfect accuracy, but a joint decision was made between the patient and the surgeon/proceduralist ?to proceed at this time with the scheduled surgery/procedure as indicated on the consent form. I have re-examined the patient. There are no clinical changes since date of exam.
[2019-11-17 07:28] VITALS: BP 126/58; PULSE 84; RESP 14; TEMP 36.6; O2SAT 93; BMI 32.3
[2019-11-17 07:50] LABS: Bedside Glucose 180 mg/dL (70-110)
[2019-11-17] MEDS: Lactated Ringers 1,000 ML 100 ML IV (07:50)
--- NOTE | 2019-11-17 08:00 | COLBX_PTH ---
PATIENT: JACOBY COOK LOC: EN U#:[id number] AGE/SX: 59/F ROOM: RE11/17/[address]: Dr. Saulo Torres MD : 1960 BED: DIS: 11/17/2019 SPEC #: [id number] RECD: 11/17/19 11:53 STATUS: RHONDA DARIEL #: [id number] MERLIN: 11/17/19 08:[address]: Saulo Torres DEPT: SURGICAL PATHOLOGY RECD BY: Mary Sal ENTERED: 11/17/19 12:16 SP TYPE: COLON BX OTHR DR: Darlene Plascencia, MARKETING INSTRUCTOR-C [facility] Tissues: Gastric mucous membrane Procedures: Surgery Specimen Level IV HEADER OPERATION: Colonoscopy, EGD ([facility]) PRE-OP DIAGNOSIS: Epigastric pain, nausea and vomiting. TISSUE SUBMITTED: Antrum biopsy for H. pylori and path MICROSCOPIC DIAGNOSIS Gastric antrum, biopsy: Mild chronic inflammation. See comment. AM:catalino 11/18/19 COMMENT The results of immunohistochemistry for Helicobacter pylori will be reported separately ([id number]). MICROSCOPIC DESCRIPTION Slides are reviewed. GROSS DESCRIPTION Received in fixative is one container labeled with the patient's name and designated antrum. The specimen consists of multiple irregular fragments of light singh soft tissue that in aggregate measure 0.7 x 0.3 x 0.1 cm. The specimen is totally submitted in one cassette. / AM:catalino 11/17/19 TC:3 CPT: 79387
--- NOTE | 2019-11-17 08:00 | IMM_PTH ---
PATIENT: JACOBY COOK LOC: EN U#:[id number] AGE/SX: 59/F ROOM: RE11/17/[address]: Dr. Saulo Torres MD : 1960 BED: DIS: 11/17/2019 SPEC #: [id number] RECD: 11/17/19 13:39 STATUS: RHONDA REQ #: [id number] MERLIN: 11/17/19 08:[address]: Saulo Torres DEPT: IMMUNOHISTOCHEMISTRY RECD BY: Philly Rush ENTERED: 11/17/19 13:40 SP TYPE: IMMUNO OTHR DR: Darlene Plascencia, AUTOMOTIVE SERVICE MANAGEMENT TEACHER-C [facility] Tissues: Stomach, NOS Procedures: H Pylori (initial) PHYSICIAN & INSTITUTION [place] [address] SPECIMEN INFORMATION: Tissue Source: Antrum biopsy Clinical Info: Epigastric pain, nausea and vomiting Specimen Number: [id number] CPT code: 13182 METHODOLOGY: Deparaffinized sections of prefer/formalin-fixed tissue or PAP/DQ stained slides are incubated with monoclonal/polyclonal antibodies/oligonucleotide probes. Localization is made via biotin free immunoperoxidase method. Appropriate controls are performed and reacted as expected. Results on target cell population are indicated in the following table: RESULTS: ANTIBODY / CLONE RESULT H Pylori (polyclonal) negative These tests were developed and their performance characteristics determined by [facility]. They may not have been cleared or approved by the U.S. Food and Drug Administration. The FDA has determined that such clearance or approval is not necessary. INTERPRETATION: Antrum biopsy: Negative for Helicobacter pylori organisms. AM:catalino 11/18/19
--- NOTE | 2019-11-17 08:26 | OP.EGD_ITS ---
Patient Name: Estela Kenney Procedure Date: 11/17/2019 8:03 AM Date of : 1960 Age: 59 Procedure: Upper GI endoscopy Indications: Epigastric abdominal pain, Nausea with vomiting Providers: Saulo Torres MD Referring MD: Flor Thorne [facility] Medicines: See the Anesthesia note for documentation of the administered medications Patient Profile: This is a 59 year old female. Refer to note in patient chart for documentation of history and physical. Complications: No immediate complications. Procedure: Pre-Anesthesia Assessment: - Prior to the procedure, a History and Physical was performed, and patient medications and allergies were reviewed. The patient's tolerance of previous anesthesia was also reviewed. The risks and benefits of the procedure and the sedation options and risks were discussed with the patient. All questions were answered, and informed consent was obtained. Prior Anticoagulants: The patient has taken no previous anticoagulant or antiplatelet agents. ASA Grade Assessment: II - A patient with mild systemic disease. After reviewing the risks and benefits, the patient was deemed in satisfactory condition to undergo the procedure. After obtaining informed consent, the endoscope was passed under direct vision. Throughout the procedure, the patient's blood pressure, pulse, and oxygen saturations were monitored continuously. The gastroscope was introduced through the mouth, and advanced to the second part of duodenum. The upper GI endoscopy was accomplished without difficulty. The patient tolerated the procedure well. Scope In: 8:14:25 AM Scope Out: 8:17:21 AM Total Procedure Duration Time 0 hours 2 minutes 56 seconds Findings: The examined esophagus was normal. Diffuse moderately erythematous mucosa without bleeding was found in the entire examined stomach. Biopsies were taken with a cold forceps for Helicobacter pylori testing. The examined duodenum was normal. No biopsies or other specimens were collected for this exam. Impression: - Normal esophagus. - Erythematous mucosa in the stomach. Biopsied. - Normal examined duodenum. No specimens collected. Recommendation: - Discharge patient to home. - Resume previous diet. - Continue present medications. - Await pathology results. - Repeat upper endoscopy at appointment to be scheduled for surveillance. - Return to my office in 1 week. - Use Prilosec OTC 20 mg PO daily. Procedure Code(s): --- Professional --- 08287, Esophagogastroduodenoscopy, flexible, transoral; with biopsy, single or multiple Diagnosis Code(s): --- Professional --- K31.89, Other diseases of stomach and duodenum R10.13, Epigastric pain R11.2, Nausea with vomiting, unspecified CPT copyright 2017 [employer]. All rights reserved. The codes documented in this report are preliminary and upon cotton expert review may be revised to meet current compliance requirements. MD Saulo Mathis MD 11/17/2019 8:26:20 AM This report has been signed electronically. Number of Addenda: 0 Note Initiated On: 11/17/2019 8:03 AM
--- NOTE | 2019-11-17 08:26 | OP.CCLET_ITS ---
11/17/2019 [place] Mati [facility] Re : Upper GI endoscopy procedure for Estela Parisi [facility] This procedure was performed on Sunday, November 17, 2019. My impressions and recommendations are as follows: Impressions : - Normal esophagus. - Erythematous mucosa in the stomach. Biopsied. - Normal examined duodenum. No specimens collected. Recommendations : - Discharge patient to home. - Resume previous diet. - Continue present medications. - Await pathology results. - Repeat upper endoscopy at appointment to be scheduled for surveillance. - Return to my office in 1 week. - Use Prilosec OTC 20 mg PO daily. My findings are described in the full procedure note, which is enclosed. If I can be of further assistance, please feel free to contact me at Doctor phone number(s): , Fax: [phone], Work: . Sincerely, MD Saulo Mathis MD 11/17/2019 8:26:20 AM This report has been signed electronically.
[2019-11-17 08:29] VITALS: BP 107/65; BP 126/58; PULSE 85; RESP 16; TEMP 36.7; O2SAT 92
--- NOTE | 2019-11-17 08:31 | OP.CCLET_ITS ---
11/17/2019 [place] [facility] Re : Colonoscopy procedure for Estela Parisi [facility] This procedure was performed on Sunday, November 17, 2019. My impressions and recommendations are as follows: Impressions : - The procedure was aborted due to inadequate bowel prep. - Stool in the rectum. - No specimens collected. - The procedure was aborted. Recommendations : - Discharge patient to home. - Resume previous diet. - Continue present medications. - Repeat colonoscopy at next available appointment (within 3 months) because the bowel preparation was poor. We will need to use GoLYTELY for the next bowel prep. - Return to my office in 1 week. My findings are described in the full procedure note, which is enclosed. If I can be of further assistance, please feel free to contact me at Doctor phone number(s): , Fax: [phone], Work: . Sincerely, MD Saulo Mathis MD 11/17/2019 8:30:52 AM This report has been signed electronically.
--- NOTE | 2019-11-17 08:31 | OP.COLON_ITS ---
Patient Name: Estela Kenney Procedure Date: 11/17/2019 8:17 AM Date of : 1960 Age: 59 Procedure: Colonoscopy Indications: Screening for colorectal malignant neoplasm Providers: Saulo Torres MD Referring MD: Flor Thorne [facility] Medicines: See the Anesthesia note for documentation of the administered medications Patient Profile: This is a 59 year old female. Refer to note in patient chart for documentation of history and physical. Last Colonoscopy: 1985. Complications: No immediate complications. Procedure: Pre-Anesthesia Assessment: - Prior to the procedure, a History and Physical was performed, and patient medications and allergies were reviewed. The patient's tolerance of previous anesthesia was also reviewed. The risks and benefits of the procedure and the sedation options and risks were discussed with the patient. All questions were answered, and informed consent was obtained. Prior Anticoagulants: The patient has taken no previous anticoagulant or antiplatelet agents. ASA Grade Assessment: II - A patient with mild systemic disease. After reviewing the risks and benefits, the patient was deemed in satisfactory condition to undergo the procedure. After I obtained informed consent, the scope was passed under direct vision. Throughout the procedure, the patient's blood pressure, pulse, and oxygen saturations were monitored continuously. The adult colonoscope was introduced through the anus with the intention of advancing to the cecum. The scope was advanced to the sigmoid colon before the procedure was aborted. Medications were given. The colonoscopy was aborted due to inadequate bowel prep. Scope In: 8:19:11 AM Scope Out: 8:20:52 AM Total Procedure Duration Time 0 hours 1 minute 41 seconds Findings: Copious quantities of solid stool was found in the rectum, precluding visualization. Impression: - The procedure was aborted due to inadequate bowel prep. - Stool in the rectum. - No specimens collected. - The procedure was aborted. Recommendation: - Discharge patient to home. - Resume previous diet. - Continue present medications. - Repeat colonoscopy at next available appointment (within 3 months) because the bowel preparation was poor. We will need to use GoLYTELY for the next bowel prep. - Return to my office in 1 week. Procedure Code(s): --- Professional --- 19194, 53, Colonoscopy, flexible; diagnostic, including collection of specimen(s) by brushing or washing, when performed (separate procedure) Diagnosis Code(s): --- Professional --- Z12.11, Encounter for screening for malignant neoplasm of colon Z53.8, Procedure and treatment not carried out for other reasons CPT copyright 2017 [employer]. All rights reserved. The codes documented in this report are preliminary and upon signal operator review may be revised to meet current compliance requirements. MD Saulo Mathis MD 11/17/2019 8:30:52 AM This report has been signed electronically. Number of Addenda: 0 Note Initiated On: 11/17/2019 8:17 AM
[2019-11-17 08:32] VITALS: BP 107/65; BP 126/58; PULSE 82; RESP 16; O2SAT 92
[2019-11-17 08:34] VITALS: BP 106/63; BP 126/58; PULSE 79; RESP 16; O2SAT 93
[2019-11-17 08:38] VITALS: BP 107/61; BP 126/58; PULSE 77; RESP 16; TEMP 36.6; O2SAT 92
[2019-11-17 09:12] VITALS: BP 126/58
== END 2019-11-17 09:13 | disposition home or self-care (01) ==
LOC: EN 06:58 → AC 06:59
PROVIDERS: Anesthesiology; Visit Provider Surgery
PROC: 0DJD8ZZ Inspection of Lower Intestinal Tract, Via Natural or Artificial Opening Endoscopic (ICD-10-PCS; CPT 45378; principal; 2019-11-17 07:55)
DX: Z12.11 Encounter for screening for malignant neoplasm of colon (principal); M19.90 Unspecified osteoarthritis, unspecified site; K21.9 Gastro-esophageal reflux disease without esophagitis; E11.9 Type 2 diabetes mellitus without complications; R11.2 Nausea with vomiting, unspecified; R10.13 Epigastric pain; E66.9 Obesity, unspecified; I10 Essential (primary) hypertension; J44.9 Chronic obstructive pulmonary disease, unspecified; Z79.82 Long term (current) use of aspirin; Z79.899 Other long term (current) drug therapy; Z79.4 Long term (current) use of insulin; Z53.09 Procedure and treatment not carried out because of other contraindication
CPT/HCPCS: 43239; G0121; 82962; 87635; 88305; 88342; C9803; J7120; J2405; U0003

== ENCOUNTER 2019-12-03 09:49 | Day surgery (SDC) | payer MEDICARE, SELFPAY ==
[2019-12-03] VITALS (7 sets, daily range): BP systolic 121–146; BP diastolic 63–73; PULSE 70–80; RESP 16; TEMP 36.6; O2SAT 92–95; BMI 32.4
--- NOTE | 2019-12-03 10:29 | HP_ITS ---
Intake Vital Signs 10/30/19 BMI 34.3 10/30/19 Height 5 ft 10/30/19 Weight: 173 lb 4 oz 10/30/19 BMI 33.8 10/30/19 BP 131/84 H 10/30/19 Blood Pressure Location Lt brachial 10/30/19 Position Sitting 10/30/19 Respiration 20 H 10/30/19 Pulse 103 H 10/30/19 Pulse Source Monitor 10/30/19 Temp 97.8 F 10/30/19 Temp Source Temporal 10/30/19 Pulse Oximetry (%) 95 10/30/19 Oxygen Delivery Method room air Intake Visit Reasons: CSCOPE/ EGD, GERD, CONSTIPATION Chief Complaint: c-scope/EGD consult Ink Grinder Required: No Accompanied by: Is patient in pain?: No Allergies No Known Allergies Allergy (Verified 10/30/19 09:36) Medications Losartan Potassium [Cozaar] 25 mg PO DAILY 06/13/13 [History Confirmed 10/30/19] Multivitamins,Therapeutic [Multivitamin] 1 tab PO DAILY 06/13/13 [History Confirmed 10/30/19] Pravastatin [Pravachol] 80 mg PO QHS 06/13/13 [History Confirmed 10/30/19] Pregabalin [Lyrica] 200 mg PO BID 06/13/13 [History Confirmed 10/30/19] Aspirin [Aspirin, Baby] 81 mg PO DINNER 01/16/14 [History Confirmed 10/30/19] Cholecalciferol (VIT D3) [Vitamin D3] 1,000 unit PO DAILY 01/16/14 [History Confirmed 10/30/19] Albuterol Sulfate [Ventolin Hfa] 2 puff INHALATION Q4H PRN PRN 06/08/17 [History Confirmed 10/30/19] Duloxetine HCl 30 mg PO DAILY 06/08/17 [History Confirmed 10/30/19] metFORMIN HCl [Glucophage] 500 mg PO BID #30 tab 06/09/17 [Rx Confirmed 10/30/19] Ascorbic Acid/Ascorbate Sodium [Vitamin C 500 mg Wafer] 500 mg PO TID 02/24/18 [History Confirmed 10/30/19] Acetaminophen [Tylenol Tablet] 650 mg PO Q6H PRN PRN tab 02/26/18 [Rx Confirmed 10/30/19] dexlansoprazole 60 mg capsule,biphase delayed release 60 mg PO QHS 10/30/19 [History Confirmed 10/30/19] insulin glargine 100 unit/mL subcutaneous solution 20 unit SC QPM 10/30/19 [History Confirmed 10/30/19] lansoprazole 15 mg capsule,delayed release 15 mg PO DAILY 10/30/19 [History Confirmed 10/30/19] meloxicam 7.5 mg tablet 7.5 mg PO DAILY 10/30/19 [History Confirmed 10/30/19] oxycodone myristate 13.5 mg capsule sprinkle extend release 12hr(DON'T CRUSH) 13.5 mg PO BID 10/30/19 [History Confirmed 10/30/19] oxycodone-acetaminophen 5 mg-325 mg tablet 1 tab PO TID PRN 10/30/19 [History Confirmed 10/30/19] pregabalin 200 mg capsule 200 mg PO BID 10/30/19 [History Confirmed 10/30/19] PFSH Medical History Depression with anxiety (Acute) Fracture of right wrist (Acute) Arthritis (Acute) History of back problems (Acute) Diabetes mellitus type 2 in obese (Chronic) Atypical chest pain (Acute) Hypertension (Chronic) Chronic back pain (Chronic) GERD (gastroesophageal reflux disease) (Chronic) COPD (chronic obstructive pulmonary disease) (Chronic) Nephrolithiasis (Resolved) REINALDO (acute kidney injury) (Acute) Obesity (BMI 30.0-34.9) (Chronic) Tobacco use (Chronic) Surgical History History of (Acute) History of cholecystectomy (Acute) History of discectomy (Acute) History of fusion of cervical spine (Acute) History of hysterectomy (Acute) history right shoulder surgery (Acute) Family History Mother Arthritis Diabetes Heart disease Hypertension High cholesterol Sister Asthma Arthritis Diabetes Grandmother Colon cancer Aunt Lupus Daughter Seizures Social History (Updated 11/05/19 @ 12:[address] Saulo Torres MD) Smoking Status: Never smoker alcohol intake: never substance use type: does not use HPI HPI Surgical H&P: Yes HPI: JACOBY COOK, is a 59 F who presents to the office today for Evaluation for endoscopy. Patient has been experiencing some epigastric abdominal pain with meals. She has occasional nausea and vomiting but no blood in no signs of coffee grounds. She is also been noticing some right lower quadrant abdominal discomfort with her bowel movements she has a history of constipation she has had no blood in her stools. The last time she has had any scopes was in 1985 both an upper and lower but I do not have any reports from this. ROS General General: Yes fatigue; no weight change, appetite, colon cancer, breast cancer or weakness HEENT HEENT: Yes difficulty swallowing and eye surgery; no eye injury, swollen glands or hoarseness Endo Endocrine: Yes diabetes mellitus; no thyroid disease, thyroid cancer, Hair loss, heat intolerance or cold intolerance Skin Skin: No rash or changing moles Breast Breast: No left breast lump, right breast lump, nipple discharge, breast pain, abnormal mammogram, abnormal US or breast enlargement Musc Musculoskeletal: Yes back problems and arthritis; no rheumatoid arthritis, gout or joint pain Cardio Cardiovascular: Yes high blood pressure; no murmur, pacemaker, heart disease, atrial fibrillation, heart attack, heart stent, palpitations, shortness of breat with exertion or chest pain Psych Psychiatric: Yes depression and anxiety; no hearing voices Resp Respiratory: No shortness of breath, No sleep apnea, No cough, Yes COPD, No asthma, No emphysema, No wheezing Gastro Gastrointestinal: Yes abdominal pain, Yes nausea or vomiting, Yes diarrhea, Yes constipation, No blood in stool, Yes acid reflux, Yes hemorrhoids, No ulcers, No gallbladder problem, No black,tarry stools Eulogio Hematologic: Yes blood thinners, No blood disorders, No bleeding, No anemia, No blood clots Neuro Neurologic: No system reviewed and no additional complaints, except as docu, No as per HPI, No abnormal walking, No abnormal hearing, No abnormal movements, No abnormal speech, No behavioral changes, No burning sensations, No confusion, No seizure-like activity, No unsteadiness, No dizziness, No localized weakness, No frequent falls, No headache(s), No lack of coordination, No loss of vision, No memory loss, Yes numbness, No other visual disturbances, No radiating pain, No restless legs, No sensory deficit, No fainting, Yes tingling, No tremor(s), No weakness, No other Exam Const General: no acute distress, well developed, well hydrated Orientation: oriented to person, oriented to place, oriented to time [facility] Head: normocephalic, atraumatic Ears: external ears normal Mouth: moist mucous membranes Eyes Sclera: sclerae normal Pupils: normal by confrontation Neck Neck: no lymphadenopathy noted Neck mass: No Thyroid: thyroid normal, symmetrical Chest Chest palpation & inspection: normal inspection of the chest Breast Palpation: No nipple discharge Resp Effort & Inspection: normal respiratory effort Auscultation: clear to auscultation bilaterally Percussion: percussion normal Cardio Rate: regular rate Rhythm: regular rhythm Heart Sounds: no murmurs GI Palpation: soft, no hepatosplenomegaly, no masses, nontender Rectal Exam: other Other: Rectal exam deferred. Extrem General: normal to inspection, no clubbing, cyanosis or edema Assessment & Plan Problems 1. Epigastric pain R10.13 2. Nausea and vomiting, intractability of vomiting not specified, unspecified vomiting type R11.2 3. Encounter for screening colonoscopy Z12.11 Plan I have discussed the above with the patient. I have offered the patient colonoscopy As well as an EGD for evaluation. I have explained the risks/benefits of the procedure and described the procedure. I have discussed the risks with the patient, including but not limited to: infection, bleeding, perforation of the GI tract requiring emergency surgery, inability to complete the procedure, injury to any internal organs, complications of anesthesia, etc. - the patient understands and agrees to proceed. I have answered all the patient's questions to the patient's satisfaction and the patient has no further questions. The patient has been given instructions for the colon cleansing preparation. Coding Level of Care Code Off vis,new,level 3 Diagnoses Epigastric pain R10.13 Nausea and vomiting, intractability of vomiting not specified, unspecified vomiting type R11.2 ??Vomiting type: unspecified ??Vomiting Intractability: unspecified Encounter for screening colonoscopy Z12.11 COVID (Procedure Consent) Procedure Criteria Procedure Criteria: Yes Elective The surgeon/proceduralist and patient have discussed in detail the risk of exposure to and/or potential harm posed by the COVID-19 virus with having a surgery/procedure at this time versus the risk of? delaying the surgery/procedure. It is not possible to know either the risk of delaying the surgery or procedure or chance of getting an infection with perfect accuracy, but a joint decision was made between the patient and the surgeon/proceduralist ?to proceed at this time with the scheduled surgery/procedure as indicated on the consent form. I have re-examined the patient. There are no clinical changes since date of exam.
[2019-12-03] MEDS: Lactated Ringers 1,000 ML 100 ML IV (10:31)
--- NOTE | 2019-12-03 11:33 | OP.COLON_ITS ---
Patient Name: Estela Kenney Procedure Date: 12/03/2019 11:08 AM Date of : 1960 Age: 59 Procedure: Colonoscopy Indications: Screening for colorectal malignant neoplasm Providers: Saulo Torres MD Referring MD: Flor Thorne [facility] Medicines: See the Anesthesia note for documentation of the administered medications Patient Profile: This is a 59 year old female. Refer to note in patient chart for documentation of history and physical. Last Colonoscopy: more than 10 years ago. Complications: No immediate complications. Procedure: Pre-Anesthesia Assessment: - Prior to the procedure, a History and Physical was performed, and patient medications and allergies were reviewed. The patient's tolerance of previous anesthesia was also reviewed. The risks and benefits of the procedure and the sedation options and risks were discussed with the patient. All questions were answered, and informed consent was obtained. Prior Anticoagulants: The patient has taken no previous anticoagulant or antiplatelet agents. ASA Grade Assessment: III - A patient with severe systemic disease. After reviewing the risks and benefits, the patient was deemed in satisfactory condition to undergo the procedure. After I obtained informed consent, the scope was passed under direct vision. Throughout the procedure, the patient's blood pressure, pulse, and oxygen saturations were monitored continuously. The adult colonoscope was introduced through the anus and advanced to the cecum, identified by appendiceal orifice and ileocecal valve. The colonoscopy was performed without difficulty. The patient tolerated the procedure well. The quality of the bowel preparation was good. Scope In: 11:11:04 AM Scope Withdrawal Time 0 hours 7 minutes 23 seconds Scope Out: 11:29:13 AM Total Procedure Duration Time 0 hours 18 minutes 9 seconds Findings: Non-bleeding internal hemorrhoids were found during retroflexion. The hemorrhoids were mild and small. No biopsies or other specimens were collected for this exam. A few small-mouthed diverticula were found in the sigmoid colon. No biopsies or other specimens were collected for this exam. The exam was otherwise without abnormality. Impression: - Non-bleeding internal hemorrhoids. No specimens collected. - Diverticulosis in the sigmoid colon. No specimens collected. - The examination was otherwise normal. Recommendation: - Discharge patient to home. - Resume previous diet. - Continue present medications. - Repeat colonoscopy in 10 years for screening purposes. - Return to primary care physician PRN. Procedure Code(s): --- Professional --- 67582, Colonoscopy, flexible; diagnostic, including collection of specimen(s) by brushing or washing, when performed (separate procedure) Diagnosis Code(s): --- Professional --- Z12.11, Encounter for screening for malignant neoplasm of colon K64.8, Other hemorrhoids K57.30, Diverticulosis of large intestine without perforation or abscess without bleeding CPT copyright 2017 [employer]. All rights reserved. The codes documented in this report are preliminary and upon torch cutter review may be revised to meet current compliance requirements. MD Saulo Mathis MD 12/03/2019 11:33:30 AM This report has been signed electronically. Number of Addenda: 0 Note Initiated On: 12/03/2019 11:08 AM
--- NOTE | 2019-12-03 11:34 | OP.CCLET_ITS ---
12/03/2019 [place] [facility] Re : Colonoscopy procedure for Estela Parisi [facility] This procedure was performed on Tuesday, December 03, 2019. My impressions and recommendations are as follows: Impressions : - Non-bleeding internal hemorrhoids. No specimens collected. - Diverticulosis in the sigmoid colon. No specimens collected. - The examination was otherwise normal. Recommendations : - Discharge patient to home. - Resume previous diet. - Continue present medications. - Repeat colonoscopy in 10 years for screening purposes. - Return to primary care physician PRN. My findings are described in the full procedure note, which is enclosed. If I can be of further assistance, please feel free to contact me at Doctor phone number(s): , Fax: [phone], Work: . Sincerely, MD Saulo Mathis MD 12/03/2019 11:33:30 AM This report has been signed electronically.
== END 2019-12-03 12:28 | disposition home or self-care (01) ==
LOC: EN 09:49 → AC 09:50
PROVIDERS: Anesthesiology; Visit Provider Surgery
PROC: 0DJD8ZZ Inspection of Lower Intestinal Tract, Via Natural or Artificial Opening Endoscopic (ICD-10-PCS; CPT 45378; principal; 2019-12-03 10:55)
DX: Z12.11 Encounter for screening for malignant neoplasm of colon (principal); Z20.828 Contact with and (suspected) exposure to other viral communicable diseases; K57.30 Diverticulosis of large intestine without perforation or abscess without bleeding; K64.8 Other hemorrhoids; K21.9 Gastro-esophageal reflux disease without esophagitis; K59.00 Constipation, unspecified; M19.90 Unspecified osteoarthritis, unspecified site; E11.9 Type 2 diabetes mellitus without complications; I10 Essential (primary) hypertension; J44.9 Chronic obstructive pulmonary disease, unspecified; F41.8 Other specified anxiety disorders; E66.9 Obesity, unspecified; Z68.32 Body mass index [BMI] 32.0-32.9, adult; Z79.899 Other long term (current) drug therapy; Z79.82 Long term (current) use of aspirin; Z79.4 Long term (current) use of insulin; R11.2 Nausea with vomiting, unspecified
CPT/HCPCS: G0121; 87635; C9803; J7120; J1610; J2405; U0003

== ENCOUNTER → 2020-01-06 20:00 | Outpatient (CLI) | payer MEDICARE, SELFPAY | DX: G47.10 Hypersomnia, unspecified (principal) | CPT/HCPCS: 95810 ==

== ENCOUNTER → 2020-01-13 13:25 | Outpatient (CLI) | payer MEDICARE, SELFPAY ==
[2019-12-03 10:25] VITALS: BMI 32.4
--- NOTE | 2020-01-13 13:26 | BI_ITS ---
MAMMOGRAPHY - BILATERAL SCREENING REASON FOR EXAM: Female, 59 years old. Routine annual screening examination. PERTINENT HISTORY: Grandmother with breast cancer. TECHNIQUE: Digital bilateral breast todd (3D mammographic acquisition) in the CC and MLO projections. 2-D mediolateral oblique (MLO) and craniocaudad (CC) views of both breasts were obtained. CAD: Full Field Digital Mammography with Computer Added Detection was performed. COMPARISON: Comparison is made with prior study dated 11/01/2018 and 02/19/2017. FINDINGS: Breast Composition: The breasts are almost entirely fatty. There are no dominant masses or suspicious calcifications. A tissue clip marker is once again seen in the deep slightly inferior medial aspect of the right breast. No other significant abnormalities are identified. There has been no significant change since the prior study. BI/SCREEN MAMM (CAD) W/TODD BILAT IMPRESSION: Stable bilateral screening mammogram. Yearly follow-up mammogram recommended. (A) ASSESSMENT CATEGORY: BIRADS Category 2: Benign. A letter regarding these results will be sent to the patient by the facility within 30 days. Approximately 10% of breast cancers are not detected by mammography. A normal mammogram should not delay biopsy of a clinically suspicious abnormality. [id number] Electronically Signed: Zafar Sue, at 14:41 EST , Service support ,
== END ==
DX: Z12.31 Encounter for screening mammogram for malignant neoplasm of breast (principal)
CPT/HCPCS: 77063; 77067

== ENCOUNTER → 2020-03-12 09:54 | Outpatient (CLI) | payer MEDICARE, SELFPAY ==
[2019-12-03 10:25] VITALS: BMI 32.4
[2020-03-12 11:04] LABS: ALB/GLOB Ratio 0.8 RATIO (0.9-2.4); AST(SGOT) 41 U/L (15-37); Alanine Aminotransfer ALT/SGPT 42 U/L (13-56); Albumin, Serum 3.5 g/dL (3.2-5.0); Alkaline Phosphatase 55 U/L (45-117); Anion Gap 6 (5-15); BUN 12 mg/dL (7-18); BUN/Creat Ratio 12.5 RATIO (10-20); Calcium,Total 10.7 mg/dL (8.5-10.1); Chloride 104 mmol/L (98-107); Creatinine, Serum 0.96 mg/dL (0.55-1.02); EST Glomerular Filtration Rate 63 mL/min (>60); Est Glom Filt Rate - Afr Amer 76 mL/min (>60); Globulin 4.5 g/dL (2.2-4.2); Glucose 217 mg/dL (74-106); Potassium 4.1 mmol/L (3.5-5.1); Sodium Level 136 mmol/L (136-145)
[2020-03-12 11:05] LABS: Hemoglobin A1c 8.8 % (3.8-5.6)
[2020-03-12 11:09] LABS: Microalbumin,Random Urine 56.1 mg/L (NO RANGE EST.); Microalbumin:Creatinine Ratio 36.4 mg/g CRE (<30 mg/g CRE)
--- NOTE | 2020-03-12 11:10 | EKG12_ITS ---
Test Reason : Blood Pressure : / mmHG Vent. Rate : 096 BPM Atrial Rate : 096 BPM P-R Int : 154 ms QRS Dur : 104 ms QT Int : 358 ms P-R-T Axes : 047 -55 018 degrees QTc Int : 452 ms Normal sinus rhythm Left anterior fascicular block Poor R wave progression Abnormal ECG Confirmed by GUILLERMINA DEUTSCH, PADMINI ([id number]), editorial clerk AMAURY LENNON ([id number]) on 03/15/2020 1:22:20 PM Referred By: Stef Wildre Confirmed By:PADMINI SARMIENTO MD
[2020-03-12 18:40] LABS: Xtra Tube EP Lab EXTRA TUBE
== END ==
PROVIDERS: Nurse Practitioner Adult Health; Referring Provider Family Medicine; Visit Provider Family Medicine
DX: R10.31 Right lower quadrant pain (principal); E11.9 Type 2 diabetes mellitus without complications; G25.81 Restless legs syndrome; K57.92 Diverticulitis of intestine, part unspecified, without perforation or abscess without bleeding
CPT/HCPCS: 36415; 80053; 82043; 82570; 83036; 93005

== ENCOUNTER → 2020-05-20 07:14 | Outpatient (CLI) | payer MEDICARE, SELFPAY ==
[2020-05-06 15:07] VITALS: BMI 34.4
--- NOTE | 2020-05-20 07:16 | ECHOD_ITS ---
Reason For Study: Murmur Procedure This was a 2D Doppler, Color Flow transthoracic echocardiogram. The study was technically difficult. Exam performed in department. Left Ventricle Normal LV size. Left ventricular systolic function is normal. The estimated ejection fraction is 70 %. No evidence for diastolic dysfunction. No regional wall motion abnormalities noted. Right Ventricle Normal RV size. Normal systolic function. Atria Normal left atrium. Normal right atrium. No doppler evidence for ASD. Mitral Valve There is no mitral annular calcification. Normal mitral valve. Trivial mitral valve insufficiency. Tricuspid Valve Normal tricuspid valve. Trivial tricuspid valve insufficiency. Right ventricular systolic pressure estimated to be 22 mmHg. Aortic Valve Trisinus/trileaflet aortic valve. Mild focal aortic valve thickening. Pulmonic Valve The pulmonic valve is not well visualized. Great Vessels Normal sized aortic root. Pericardium/Pleural No pericardial effusion. MMode/2D Measurements & Calculations LVIDd: 3.8 cm IVSd: 1.2 cm Ao root diam: 2.9 cm LVIDs: 2.0 cm LVPWd: 1.1 cm RVDd: 3.0 cm FS: 46.4 % LAV(MOD-bp): 25.8 ml LVAd ap4: 19.3 cm2 SV(MOD-sp4): 29.9 ml LAV(MOD-bp) Indexed: 14.5 ml/m2 EDV(MOD-sp4): 44.5 ml LAV(MOD-sp2): 24.3 ml EDV(sp4-el): 44.9 ml LAV(MOD-sp4): 26.9 ml LVAs ap4: 10.0 cm2 ESV(MOD-sp4): 14.6 ml ESV(sp4-el): 13.9 ml EF(MOD-sp4): 67.2 % EF(sp4-el): 69.1 % SV(sp4-el): 31.0 ml LA A4 area: 12.8 cm2 RA A4 area: 12.1 cm2 Doppler Measurements & Calculations MV E max carson: 82.0 cm/sec Lat Peak E' Carson: 9.4 cm/sec Med Peak E' Carson: 6.7 cm/sec MV A max carson: 88.0 cm/sec E/E' lat: 8.7 E/E' med: 12.2 MV E/A: 0.93 Ao V2 max: 169.0 cm/sec LV V1 max: 123.7 cm/sec PA V2 max: 133.7 cm/sec Ao max P.4 mmHg LV V1 max P.1 mmHg TR max carson: 218.8 cm/sec TR max P.2 mmHg ECHO/Echo Complete Interpretation Summary The study was technically difficult. Left ventricular systolic function is normal. The estimated ejection fraction is 70 %. Trivial mitral valve insufficiency. Trivial tricuspid valve insufficiency. Mild focal aortic valve thickening. Right ventricular systolic pressure estimated to be 22 mmHg. No evidence for diastolic dysfunction. Ordering Physician: Akshat Caraballo Referring Physician: Akshat Caraballo Performed By: Marie Olmedo [facility]
--- NOTE | 2020-05-20 09:45 | RAD_ITS ---
STUDY: X-RAY CHEST REASON FOR EXAM: Female, 59 years old. chest pain TECHNIQUE: PA and lateral views of the chest. COMPARISON: 06/08/2017 FINDINGS: Status post anterior cervical discectomy and fusion lower cervical spine. The lungs are clear and expanded. There is no demonstrated pleural abnormality. Normal size heart. Normal mediastinum and nathalie. Normal visualized pulmonary arteries. Normal visualized aortic arch and descending thoracic aorta. Normal visualized thoracic spine. Normal visualized ribs, clavicles, and shoulders. There is no demonstrated abnormality of the visualized soft tissue structures of the upper abdomen. RAD/Chest PA and Lateral IMPRESSION: Normal x-ray examination of the chest. Electronically Signed: Pablo Dumont MD at 9:37 EDT Tel , Service support ,
--- NOTE | 2020-05-20 10:01 | STRESSREP_ITS ---
Stress Test Report Date: 05-20-2020 Procedure: Pharmacologic stress nuclear imaging study Indications: Chest pain; abnormal ECG Consent: Per the patient Procedure: The patient underwent pharmacologic (Regadenoson 0.4mg ) evaluation with a peak heart rate of 94 beats per minute (59% %predicted maximal heart rate) and a peak blood pressure of 150/70 mmHg. The baseline ECG demonstrated sinus rhythm. The peak pharmacologic ECG demonstrated no obvious ECG changes. There was an isolated PVC in recovery. There was no complaint of chest discomfort during pharmacologic infusion or recovery. The examination was discontinued secondary to completion of protocol. Impression: 1. Pharmacologic (Regadenoson) evaluation 2. Peak pharmacologic ECG with no obvious ECG changes. 3. There were no cardiac dysrhythmias pretest, during pharmacologic infusion, or recovery. 4. Nuclear images pending Myocardial perfusion imaging study: Technique: The patient was injected with 10.6 millicuries of technetium 99m Cardiolite and subsequently rest SPECT Cardiolite nuclear imaging was obtained in the horizontal long, vertical long, and short axis views. The patient underwent pharmacologic (Regadenoson) evaluation with a peak heart rate of 94 beats per minute (59% percent predicted maximal heart rate) and a peak blood pressure of 150/70 mmHg. The patient was injected with 33.7 millicuries of technetium 99m Cardiolite and subsequently stress SPECT Cardiolite nuclear imaging was obtained in the horizontal long, vertical long, and short axis views. A gated Cardiolite study at peak stress was obtained. Interpretation: Rest and stress SPECT Cardiolite nuclear imaging status post realignment, normalization, and attenuation correction demonstrate relative uniform tracer uptake and myocardial perfusion appearing within normal limits. There is end systolic thickening and brightening. The gated Cardiolite study demonstrates myocardial thickening and inward wall motion. The reported LVEF is 85%. Impression: 1. Rest and stress SPECT Cardiolite nuclear imaging demonstrate relative uniform tracer uptake and myocardial perfusion appearing within normal limits. 2. The gated Cardiolite study reports an LVEF of 85%. This note was generated with [employer] software. It may contain incorrect words, spelling, and punctuation that were not noted in checking the note before signing.
== END ==
PROVIDERS: Referring Provider Internal Medicine Cardiovascular Disease; Visit Provider Internal Medicine Cardiovascular Disease
DX: R07.89 Other chest pain (principal); R01.1 Cardiac murmur, unspecified; R94.31 Abnormal electrocardiogram [ECG] [EKG]; I10 Essential (primary) hypertension
CPT/HCPCS: 71046; 78452; 93017; 93306; A9500; A4216; J2785

== ENCOUNTER 2020-07-15 15:02 | Outpatient (RCR) | payer MEDICARE, SELFPAY ==
[2020-05-06 15:07] VITALS: BMI 34.4
--- NOTE | 2020-07-15 16:16 | HP.PTEVAL ---
Patient's Visit Information JACOBY COOK is a 59 year old F referred to Physical Therapy by JOSE Hwang with a diagnosis of INTERVERTBRAL DISC DISPLACEMENT ,LUMBAR SCACRAL REGION. Date of Evaluation: 07/15/20 Physical Therapist: Roque Benitez PT, Cert MDT, [facility] - Visit Plan Frequency: 1 VISITS Plan: ALONG WITH COMORBITIES,THIS PATIENT WILL BENIFIT FROM SCOOTER DUE TO DECREASE ENDURANCE WALKING 150 FT BEFORE RESTING WITH CANE ,STANDING < LESS 10MIN ,DECREASE BALANCE SCORES ON CATRSIB,AND FUNCTIONAL GAIT ASSESSEMENT ,H/O FALLS ,WEAKNESS IN LEGS ,BACK AND LEG PAIN WITH H/O OF LUMBAR FUSION AND SCOOTER WILL BENIFIT SIGNIFICANTLY TO IMPROVE ABILITY TO PARTICIPATE IN MRADL'S AND WILLINGNESS TO USE THE SCOOTER IN HOME THUS SCOOTER WILL BENIFIT TO MAXIMIZE LEVEL OF FUNCTIONAL INDEPENANCE.PATIENT IS UNABLE TO USE PUSH MANUAL W/C DUE TO WEAKNES AND PAIN IN SHOULDER. - Subjective This 59 y/o female presents to physical therapy with evaluation with scooter. Patient major c/o has difficulty walking 400 ft with cane due to weakness and SOB along with LBP. Patient has had 2 lumbar surgeries in lumbar 1995 fusion lumbar fusion ,2019 lumbar fusion L3 - S1 and cervical fusion 2019. Pain is located upper back to lumbar with radicular symptoms. Aggravating factors < than 10 min standing ,walking about 150 pain increases. Patient us unable to bend or lift .Patient asends/desends steps one step at time. C/O parathesia in left > right leg. Patient had fall 6 months ago . Patient fracture right wrist walking out of house. Coughing/sneezing -.Bowel/bladder -. Patient sleeps with sleeping pill. Patient has h/o vertigo. Patient condition will benefit from scooter to maximize functional I with gait and and moblity in community and in home. SOCIAL: . VOCATION: disability - Pain Bilateral Back Pain Intensity (Out of 10): 3 Pain Intensity Range: 10 Bilateral Lower Extremity Pain Intensity (Out of 10): 8 Pain Intensity Range: 10 Comment: walking - Objective POSTURE: mild forward posture. GAIT: 2 point pattern with cane ~ 400 ft slow yadira mild forward posture. NEURO: C/O parathesia/tingling in legs .,light touch intact, reflexes L3-4,L4-5,L5 S1 1/3. SYMMTRIES : align. BALANCE: fair+ with cane. STAIRS: one step at time with rails. MMT : quads/hams 4-/5,hip flexion 3+/5,ankle 4/5,hip abduction 3+/5. BUE MMT : 4-/5 SHOULDER 3+/5. FLEXABILITY: hamstrings min tight - Balance Scores Functional Gait Assessment Score: 8 % Disability: 73.3400 CATSIB Score (Max score 120 seconds): 60 - Goals Goal 1:: RECOMMEND SCOOTER FOR MOBLITY TO USE IN HOME AND COOMUNITY - Rehabilitation Potential Physical Therapy Diagnosis: THIS PATIENT WILL BENIFIT FROM SCOOTER DUE TO DECREASE ENDURANCE WALKING 150 FT BEFORE RESTING WITH CANE ,STANDING < LESS 10MIN ,DECREASE BALANCE SCORES ON CATSIB,AND FUNCTIONAL GAIT ASSESSEMENT ,H/O FALLS ,WEAKNESS IN LEGS ,BACK AND LEG PAIN WITH H/O OF LUMBAR FUSION AND SCOOTER WILL BENIFIT SIGNIFICANTLY TO IMPROVE ABILITY TO PARTICIPATE IN MRADL'S AND WILLINGNESS TO USE THE SCOOTER IN HOME THUS SCOOTER WILL BENIFIT TO MAXIMIZE LEVEL OF FUNCTIONAL INDEPENANCE.PATIENT IS UNABLE TO USE PUSH MANUAL W/C DUE TO WEAKNES AND PAIN IN SHOULDER Rehabilitation Potential: Good - Anticipated Interventions Patient/Client Instruction: Educate patient on: Condition, Plan of Care For the Purpose of:: Other Other: KRISTEN Thank you for the opportunity to evaluate your patient. For Medicare and Medicare HMO plans, please review the plan of care and approve it. It will need to be FAXED BACK to us at [phone] for Medicare purposes. For Medicare only, by signing this I certify the plan of care. Please let me know if there are questions or concerns regarding this plan of care. Physician Signature: Date:
== END 2020-07-15 19:00 | disposition home or self-care (01) ==
LOC: PT 15:02
PROVIDERS: Referring Provider Nurse Practitioner Adult Health; Visit Provider Nurse Practitioner Adult Health
DX: M51.27 Other intervertebral disc displacement, lumbosacral region (principal)
CPT/HCPCS: 97162

== ENCOUNTER 2020-09-03 15:38 | Inpatient (IN) | payer MEDICARE, SELFPAY ==
[2020-08-19 15:40] VITALS: BMI 32.7
[2020-09-03 15:39] VITALS: BP 106/52
[2020-09-03 15:40] VITALS: PULSE 64; RESP 15; TEMP 36.9; O2SAT 95; BMI 36.3
--- NOTE | 2020-09-03 16:51 | EKG12_ITS ---
Test Reason : BACK PAIN Blood Pressure : / mmHG Vent. Rate : 059 BPM Atrial Rate : 059 BPM P-R Int : 182 ms QRS Dur : 110 ms QT Int : 412 ms P-R-T Axes : 015 -48 017 degrees QTc Int : 407 ms Sinus bradycardia Left anterior fascicular block Poor R wave progression Abnormal ECG Confirmed by GUILLERMINA DEUTSCH, PADMINI ([id number]), society editor AMAURY LENNON ([id number]) on 09/09/2020 1:11:58 PM Referred By: DEON Confirmed By:PADMINI SARMIENTO MD
--- NOTE | 2020-09-03 16:52 | EDS_ITS ---
HPI History of Present Illness Chief Complaint: Back Informant: patient and spouse/S.O. Onset/Context/Timing Onset: Month(s) (6) Context: Gradual Onset Timing: Intermittent and Waxes and wanes Current Severity: Severe Maximum Severity: Severe Associated Symptoms Associated Symptoms: Tingling intermittently in all 4 extremities, this a.m. was RUE Narrative Narrative: Patient has been having progressively worsening confusion, lethargy, speech problems, nonsensical thinking and speech, tremors of arms and legs all since February according to the spouse, when she had her Covid vaccines. She had back surgery a year or so before that, January 2019, as well as in her neck at the same time due to disc issues. She has had weakness in her leg since the surgery but has been able to ambulate. She and the state that her legs and arms have been progressively weakening in the past 6 or so months, the patient states it has been in all 4 extremities equally and symmetrically, nothing ascending. She has not lost control of her bladder or bowels, but she has been falling due to the weakness in her legs and dropping things due to the weakness in her arms. The states she has hit her head multiple times. She was rolling out of bed but he bought something to prevent that, but when he is at work and she is at home she is still falling. Yesterday and today were especially bad with regards to lethargy, confusion, weakness, and more of the tremor. PFSH [facility] Medical History Abnormal EKG REINALDO (acute kidney injury) Arthritis Atypical chest pain Chronic back pain COPD (chronic obstructive pulmonary disease) Depression with anxiety Diabetes mellitus type 2 in obese Essential hypertension Fracture of right wrist GERD (gastroesophageal reflux disease) History of back problems Left anterior fascicular block (LAFB) Nephrolithiasis Obesity (BMI 30.0-34.9) Tobacco use Home Medications multivitamin with folic acid 1 tab PO DAILY 06/13/13 [History Last Taken 02/23/18 08:00] pravastatin 80 mg PO QHS 06/13/13 [History Last Taken 02/23/18 20:00] dexlansoprazole 60 mg capsule,biphase delayed release 60 mg PO QHS 10/30/19 [History Last Taken Unknown] metformin 1,000 mg PO BID 11/10/19 [History Last Taken 11/17/19 06:30 1000 MG] cetirizine 10 mg tablet 10 mg PO DAILY PRN 04/20/20 [History Last Taken Unknown] duloxetine 60 mg capsule,delayed release 60 mg PO DAILY 04/20/20 [History Last Taken Unknown] glimepiride 1 mg tablet 1 mg PO DAILY 04/20/20 [History Last Taken Unknown] losartan 25 mg tablet 25 mg PO DAILY 04/20/20 [History Last Taken Unknown] oxycodone myristate 13.5 mg capsule sprinkle extend release 12hr(DON'T CRUSH) 13.5 mg PO BID 04/20/20 [History Last Taken Unknown] polyethylene glycol 3350 17 gram oral powder packet 17 g PO .3xweek ea 04/20/20 [History Last Taken Unknown] zolpidem 10 mg tablet 10 mg PO QHS PRN 04/20/20 [History Last Taken Unknown] aspirin 81 mg tablet,delayed release 81 mg PO DAILY 05/06/20 [History Last Taken Unknown] cyclobenzaprine 10 mg tablet 10 ea PO TID 05/06/20 [History Last Taken Unknown] docusate sodium 100 mg capsule 100 mg PO BID 05/06/20 [History Last Taken Unknown] famotidine 20 mg tablet 20 mg PO BID 05/06/20 [History Last Taken Unknown] insulin glargine 100 unit/mL subcutaneous solution 35 unit SC QHS ml 05/06/20 [History Last Taken Unknown] meloxicam 7.5 mg tablet 7.5 ea PO BID 05/06/20 [History Last Taken Unknown] oxycodone-acetaminophen 5 mg-325 mg tablet 1 tab PO TID PRN tablet 05/06/20 [History Last Taken Unknown] pregabalin 100 mg capsule 100 mg PO BID cap 05/06/20 [History Last Taken Unknown] propranolol 60 mg capsule,24 hr,extended release 60 mg PO DAILY 08/19/20 [History Last Taken Unknown] Allergy/AdvReac Type Severity Reaction Status Date / Time No Known Allergies Allergy Verified 09/03/20 15:45 Family History Mother Arthritis Diabetes Heart disease Hypertension High cholesterol Sister Asthma Arthritis Diabetes Grandmother Colon cancer Aunt Lupus Daughter Seizures Sister Diabetes Surgical History History of History of cholecystectomy History of discectomy History of fusion of cervical spine History of hysterectomy history right shoulder surgery Social History Smoking Status: Former smoker how long ago did patient quit smokin year ago alcohol intake: never substance use type: does not use caffeine: Yes Type: carbonated beverages Number of servings: 1 ROS ROS ED Constitutional Constitutional ED: Reports as per HPI, lethargy and malaise; Denies chills or fever(s) Eyes Eyes: Denies change in vision or diplopia ENT ENT ED: Denies rhinorrhea or sore throat Cardiovascular Cardiovascular: Denies chest pain or palpitations Respiratory/Chest Respiratory/Chest: Denies cough or dyspnea Gastrointestinal Gastrointestinal: Denies abdominal pain, diarrhea, nausea or vomiting Genitourinary Genitourinary ED: Denies dysuria or hematuria Musculoskeletal Musculoskeletal: Denies back pain or neck pain Integumentary Denies abscess or rash Neurologic Neurologic: Reports as per HPI, paresthesias RUE, RLE, LUE and LLE, tremor(s) and weakness; Denies headache(s) or syncope Psychiatric Psychiatric: Denies anxiety or suicidal thoughts EXAM Physical Exam Const Vital Signs: 09/03/20 15:39 09/03/20 15:40 09/03/20 19:39 Temperature 98.4 F Temperature Source Oral Pulse Rate 64 66 Respiratory Rate 15 16 Blood Pressure 106/52 L 104/79 Blood Pressure Mean 70 87 Pulse Ox 95 99 Oxygen Delivery Method Room Air Room Air Positive well nourished and well developed General Appearance ED: well developed and NAD HEENT Reports moist mucous membranes normocephalic and atraumatic Eyes PERRL and EOMs intact bilaterally Neck full ROM and supple Resp normal respiratory effort and clear to auscultation bilaterally Cardio regular rate, regular rhythm and no murmurs GI non-tender and non-distended Auscultation: normoactive bowel sounds Palpation: soft Back/Spine no CVA tenderness General Back: other FROM Extremity normal to inspection General Extremety ED: Negative for edema, pulses abnormal or tenderness General Extremity: Negative for edema or pulses abnormal Neuro CN's II-XII intact bilaterally and no sensory deficits noted Neuro Narrative: Frequent tremors, seems to occur in all 4 extremities simultaneously, very brief like myoclonus. 4/5 strength throughout all 4 extremities fairly equal throughout all muscle groups. [place] Coma Scale: document GCS findings To Voice Obeys Commands Confused 13 Sensorium / Orientation: awake, alert, oriented to person and orientation impaired; Negative for oriented to place or oriented to time Meningeal Signs: no meningeal signs Speech: speech abnormal Details: Positive for other (Occasionally slurred, occasionally nonsensical, at times sounds normal) Motor Exam: muscle tone normal throughout, general weakness and clonus absent Deep Tendon Reflexes: Rt Biceps (C5, C6): 2+, Lt Biceps (C5, C6): 2+, Rt Patellar (L4): 2+, Rt Ankle (S1): 1+ and Lt Ankle (S1): 1+ Deep Tendon Reflexes Back: Rt Patellar (L4): 2+, Rt Ankle (S1): 1+ and Lt Ankle (S1): 1+ Plantar Reflex: Downgoing: bilateral Skin no rashes or lesions noted and no wounds MDM MDM MDM Narrative Medical decision making narrative: Screening labs and imaging were obtained, results as noted below were reviewed. She appears to have acute renal failure with hyperkalemia, she does not have any major EKG changes from it but it is at 6.1. She was given Kayexalate for that. Her blood counts are good, she appears to have a urine infection, when discussing this with the patient and they state that she has some antibiotics that she occasionally takes when she feels like she is getting a urine infection and apparently she took 1 of these yesterday and they have no idea what the antibiotic is but it is only 1 pill taken once. On reevaluation her blood pressure is 80s/50s, so the rest of a septic work-up was obtained, she was given a fluid bolus, antibiotics after cultures sent, and plan is for admission. Lab Data Attestation: I reviewed the patient's lab results. Labs: Laboratory Results - last 24 hr 09/03/20 09/03/20 09/03/20 17:10 17:10 17:10 WBC 8.3 RBC 4.15 L Hgb 13.5 Hct 43.2 MCV 104.1 H MCH 32.5 H MCHC 31.3 L RDW Std Deviation 56.8 H RDW Coeff of Autumn 14.7 H Plt Count 213 MPV 10.7 Immature Gran % (Auto) 0.400 Neut % (Auto) 47.9 Lymph % (Auto) 38.0 Imperial % (Auto) 9.5 Eos % (Auto) 3.5 Baso % (Auto) 0.7 Absolute Neuts (auto) 4.0 Absolute Lymphs (auto) 3.15 Nucleated RBC % 0 Sodium 140 Potassium 6.1 H* Chloride 108 H Carbon Dioxide 24.0 Anion Gap 8 BUN 46 H Creatinine 2.93 H Estim Creat Clear Calc 14.48 Est GFR (MDRD) Af Amer 21 L Est GFR (MDRD) Non-Af 17 L BUN/Creatinine Ratio 15.7 Glucose 103 Calcium 9.8 Total Bilirubin 0.40 AST 63 H ALT 44 Alkaline Phosphatase 38 L Troponin I High Sens 8.5 Total Protein 7.7 Albumin 3.6 Globulin 4.1 Albumin/Globulin Ratio 0.9 Urine Color Urine Clarity Urine pH Ur Specific [place] Urine Protein Urine Glucose (UA) Urine Ketones Urine Occult Blood Urine Nitrite Urine Bilirubin Urine Urobilinogen Ur Leukocyte Esterase Urine RBC Urine WBC Ur Squamous Epith Cells Ur Renal Epithelial Cell Urine Bacteria Hyaline Casts Urine Mucus Urine Opiates Screen Urine Methadone Screen Ur Barbiturates Screen Ur Phencyclidine Scrn Ur Amphetamines Screen U Methamphetamin-MDMA U Benzodiazepines Scrn Urine Cocaine Screen U Cannabinoids Screen Ur Drug Screen Comment Ethyl Alcohol < 3.0 09/03/20 09/03/20 18:26 18:26 WBC RBC Hgb Hct MCV MCH MCHC RDW Std Deviation RDW Coeff of Autumn Plt Count MPV Immature Gran % (Auto) Neut % (Auto) Lymph % (Auto) Imperial % (Auto) Eos % (Auto) Baso % (Auto) Absolute Neuts (auto) Absolute Lymphs (auto) Nucleated RBC % Sodium Potassium Chloride Carbon Dioxide Anion Gap BUN Creatinine Estim Creat Clear Calc Est GFR (MDRD) Af Amer Est GFR (MDRD) Non-Af BUN/Creatinine Ratio Glucose Calcium Total Bilirubin AST ALT Alkaline Phosphatase Troponin I High Sens Total Protein Albumin Globulin Albumin/Globulin Ratio Urine Color Rosita Urine Clarity Clear Urine pH 5.0 Ur Specific Ipava 1.025 Urine Protein 30 H Urine Glucose (UA) Normal Urine Ketones 5 H Urine Occult Blood 10 H Urine Nitrite Negative Urine Bilirubin 3 H Urine Urobilinogen 1 H Ur Leukocyte Esterase 500 H Urine RBC 0 SEEN Urine WBC 10-25 SEEN Ur Squamous Epith Cells 0-5 SEEN Ur Renal Epithelial Cell 0-5 SEEN Urine Bacteria 0 SEEN Hyaline Casts 10-25 SEEN Urine Mucus 0 SEEN Urine Opiates Screen POSITIVE H Urine Methadone Screen NEGATIVE Ur Barbiturates Screen NEGATIVE Ur Phencyclidine Scrn NEGATIVE Ur Amphetamines Screen NEGATIVE U Methamphetamin-MDMA NEGATIVE U Benzodiazepines Scrn NEGATIVE Urine Cocaine Screen NEGATIVE U Cannabinoids Screen NEGATIVE Ur Drug Screen Comment Ethyl Alcohol Radiography Chest X-Ray - ED: 1 View, Read by ED Physician and No Acute Disease Diagnostic Testing: Radiology Impression Chest X-Ray 09/03/20 17:05 IMPRESSION: No acute cardiopulmonary process. Electronically Signed: Kristin Crouch MD at 17:45 EDT Tel , Service support , Brain CT 09/03/20 17:20 IMPRESSION: No acute intracranial hemorrhage or mass effect. Electronically Signed: Dale Rios MD ([place]) at 17:33 EDT , Service support , EKG Initial EKG: Attestation: I personally reviewed and interpreted this EKG as follows: Interpretation: Sinus Rhythm, No Acute Injury Pattern and LAFB Prior EKG tracings: available for review Prior: Unchanged Discharge Plan Dx/Rx/DC Orders Clinical Impression: Acute encephalopathy, REINALDO (acute kidney injury), Occasional tremors, Acute hyperkalemia, Sepsis due to urinary tract infection Disposition Disposition: Acute Care Hospital [facility]
--- NOTE | 2020-09-03 17:05 | RAD_ITS ---
STUDY: X-RAY CHEST REASON FOR EXAM: Female, 59 years old. Weakness TECHNIQUE: Single frontal view of the chest. COMPARISON: 05/20/2020 FINDINGS: There is no new focal consolidation. Normal size heart. Normal mediastinum and nathalie. Normal visualized pulmonary arteries. Normal visualized aortic arch and descending thoracic aorta. Normal visualized thoracic spine. Normal visualized ribs, clavicles, and shoulders. There are postsurgical changes of the cervical spine. There is no demonstrated abnormality of the visualized soft tissue structures of the upper abdomen. RAD/Chest 1 View (Portable) IMPRESSION: No acute cardiopulmonary process. Electronically Signed: Kristin Crouch MD at 17:45 EDT Tel , Service support ,
--- NOTE | 2020-09-03 17:20 | CT_ITS ---
STUDY: CT BRAIN WITHOUT CONTRAST REASON FOR EXAM: Female, 59 years old. confusion, tremors RADIATION DOSAGE (If Supplied By Facility): CTDIvol = ( 44.99 ) mGy, DLP = ( 796.11 ) mGycm TECHNIQUE: Transaxial CT imaging of the brain was performed without administration of intravenous contrast material. Individualized dose optimization techniques were used for this CT. COMPARISON: No relevant priors. FINDINGS: Normal soft tissue structures. Normal calvarium. Normal size ventricles and extra-axial spaces for the patient''s age. Small ossification along the posterior/parietal calvarium on image 33 of series 4 likely represents a calcified meningioma. No underlying mass effect; doubtful clinical significance. Normal white matter tracts of the cerebral hemispheres. Normal basal ganglia and thalami. Normal brainstem. Normal cerebellum. There is no intracranial hemorrhage. There are no findings of an acute ischemic infarction. Normal visualized paranasal sinuses. CT/Brain/Head without Contrast IMPRESSION: No acute intracranial hemorrhage or mass effect. Electronically Signed: Dale Rios MD ([place]) at 17:33 EDT , Service support ,
[2020-09-03 17:29] LABS: Absolute Lymphocyte Count 3.15 X10^3/uL (0.83-4.51); Basophil# 0.06 X10^3/uL; Basophil% 0.7 % (0-1); Eosinophil# 0.29 X10^3/uL; Eosinophils% 3.5 % (0-5); Hematocrit 43.2 % (37-47); Hemoglobin 13.5 g/dL (12.0-15.0); Lymphocyte # 3.15 X10^3/ul (0.83-4.51); Mean Corp Hgb Conc 31.3 g/dL (32-36); Mean Corpuscular Hgb 32.5 pg (27.0-32.0); Mean Corpuscular Volume 104.1 fL (81-99); Mean Platelet Vol. 10.7 fl (6.2-12.0); Monocyte# 0.79 X10^3/uL; Monocyte% 9.5 % (0-10); NRBC Flagged by Analyzer 0 % (0-5); Neutrophil # 3.98 X10^3/uL (2.7-7.7); Neutrophil % 47.9 % (47-70); Platelet Count 213 K/mm3 (150-450); RBC Distribution Width CV 14.7 % (11.6-14.6); RBC Distribution Width SD 56.8 fl (35.1-43.9); Red Blood Count 4.15 M/mm3 (4.2-5.4); White Blood Count 8.3 K/mm3 (4.4-11.0)
[2020-09-03 17:56] LABS: ALB/GLOB Ratio 0.9 RATIO (0.9-2.4); AST(SGOT) 63 U/L (15-37); Alanine Aminotransfer ALT/SGPT 44 U/L (13-56); Albumin, Serum 3.6 g/dL (3.2-5.0); Alkaline Phosphatase 38 U/L (45-117); Anion Gap 8 (5-15); BUN 46 mg/dL (7-18); BUN/Creat Ratio 15.7 RATIO (10-20); Calcium,Total 9.8 mg/dL (8.5-10.1); Chloride 108 mmol/L (98-107); Creatinine, Serum 2.93 mg/dL (0.55-1.02); EST Glomerular Filtration Rate 17 mL/min (>60); Est Glom Filt Rate - Afr Amer 21 mL/min (>60); Estimated Creatinine Clearance 14.48 ml/min; Globulin 4.1 g/dL (2.2-4.2); Glucose 103 mg/dL (74-106); Potassium 6.1 mmol/L (3.5-5.1); Protein, Total 7.7 g/dL (6.4-8.2); Sodium Level 140 mmol/L (136-145); Troponin-I HS 8.5 pg/mL (3.0-53.7)
[2020-09-03 18:15] LABS: Alcohol, Blood (Medical)-Serum < 3.0 mg/dL
[2020-09-03 18:38] LABS: Bacteria 0 SEEN /hpf (None Seen); Mucous, Urine 0 SEEN /hpf (<or=2+); Red Blood Cells-Urine 0 SEEN /hpf (0-5)
[2020-09-03 18:39] LABS: Color, Urine Amber (Yellow); Glucose, Dipstick Normal (Normal); Ketone-Dipstick 5 mg/dl (Negative); Leukocyte Esterase-Dipstick 500 /ul (Negative); Nitrite-Dipstick Negative (Negative); Occult Blood-Urine 10 /ul (Negative); Protein-Dipstick 30 mg/dl (Negative); Specific Gravity, Urine 1.025 (1.002-1.030); Urine Clarity Clear (Clear); Urine Urobilinogen 1 mg/dl (Normal)
[2020-09-03 18:40] LABS: Urine Bilirubin Dipstick 3 mg/dL (Negative)
[2020-09-03 18:45] LABS: Squamous Epithelial Cells - UA 0-5 SEEN /hpf (5-10); White Blood Cells 10-25 SEEN /hpf (0-5)
[2020-09-03 18:46] LABS: Hyaline Cast 10-25 SEEN /lpf (0-5)
[2020-09-03 18:48] LABS: Renal Epithelial Cells 0-5 SEEN /hpf (0-5)
[2020-09-03 18:54] LABS: Amphetamine Urine VISTA NEGATIVE (<1000 ng/mL); Barbiturate Urine VISTA NEGATIVE (< 200 ng/mL); Benzodiazepine Urine VISTA NEGATIVE (< 200 ng/mL); Cocaine Urine VISTA NEGATIVE (< 300 ng/mL); Ecstacy Urine VISTA NEGATIVE (< 500 ng/mL); Methadone Urine VISTA NEGATIVE (< 300 ng/mL); PCP Urine VISTA NEGATIVE (< 25 ng/mL); THC Urine VISTA NEGATIVE (< 50 ng/mL); Vista UDS pH Range 5
[2020-09-03 19:39] VITALS: BP 104/79; PULSE 66; RESP 16; O2SAT 99
--- NOTE | 2020-09-03 19:52 | PCM.HP.STD ---
HPI - General General Date of Admission: 09/03/20 Date of Service: 09/03/20 Chief Complaint: Worsening weakness, debility since back surgery, Confusion/fatigue HPI Narrative The patient is a 59 y/o F w/ PMHx: Anxiety and Depression, Obesity, GERD, Diabetes mellitus type II, HTN, HLD, Chronic COPD, Tobacco use, Chronic cervical back pain s/p intervention 01/2019 who presents to the [facility] ED on 09/03/20 with complaint of ongoing weakness to her legs since the surgery with difficulty ambulating as well as worsened debility also in upper extremities more pronounced both but not ascending over the last 6 months with no alteration or loss of bowel or bladder but frequent falls secondary to her weakness including unfortunate trauma to the head with recent worsening tremors, confusion and lethargy prompting to bring him to the ED for evaluation. Patient also with reported speech difficulty and nonsensical thinking which has been ongoing since February following COVID vaccinations per spouse report but upon further questioning does not specifically state that this was following vaccination just the approximate timeline. Work-up in the ED included T 98.4, heart rate 64, BP 106/52, respiratory rate 15, 95 to 96% on room air, CBC with WBC 8.3, hemoglobin 13.5, platelet 213 without marked shift, CMP with potassium 6.1, chloride 108, BUN/: 46/2.93, AST/ALT 63/44, alk phos 38, high-sensitivity troponin 8.5, urinalysis with specific gravity 1.025, protein 30, ketone 5, occult blood 10, negative nitrite, leukocyte esterase 500, urine WBCs 10-25, 0 urine bacteria noted, UDS with positive opiates otherwise negative, ethyl alcohol less than 3, CT the brain with no acute intracranial findings. [facility] Medical History Abnormal EKG REINALDO (acute kidney injury) Arthritis Atypical chest pain Chronic back pain COPD (chronic obstructive pulmonary disease) Depression with anxiety Diabetes mellitus type 2 in obese Essential hypertension Fracture of right wrist GERD (gastroesophageal reflux disease) History of back problems Left anterior fascicular block (LAFB) Nephrolithiasis Obesity (BMI 30.0-34.9) Tobacco use Home Medications multivitamin with folic acid 1 tab PO DAILY 06/13/13 [History Last Taken 02/23/18 08:00] pravastatin 80 mg PO QHS 06/13/13 [History Last Taken 02/23/18 20:00] dexlansoprazole 60 mg capsule,biphase delayed release 60 mg PO QHS 10/30/19 [History Last Taken Unknown] metformin 1,000 mg PO BID 11/10/19 [History Last Taken 11/17/19 06:30 1000 MG] cetirizine 10 mg tablet 10 mg PO DAILY PRN 04/20/20 [History Last Taken Unknown] duloxetine 60 mg capsule,delayed release 60 mg PO DAILY 04/20/20 [History Last Taken Unknown] glimepiride 1 mg tablet 1 mg PO DAILY 04/20/20 [History Last Taken Unknown] losartan 25 mg tablet 25 mg PO DAILY 04/20/20 [History Last Taken Unknown] oxycodone myristate 13.5 mg capsule sprinkle extend release 12hr(DON'T CRUSH) 13.5 mg PO BID 04/20/20 [History Last Taken Unknown] polyethylene glycol 3350 17 gram oral powder packet 17 g PO .3xweek ea 04/20/20 [History Last Taken Unknown] zolpidem 10 mg tablet 10 mg PO QHS PRN 04/20/20 [History Last Taken Unknown] aspirin 81 mg tablet,delayed release 81 mg PO DAILY 05/06/20 [History Last Taken Unknown] cyclobenzaprine 10 mg tablet 10 ea PO TID 05/06/20 [History Last Taken Unknown] docusate sodium 100 mg capsule 100 mg PO BID 05/06/20 [History Last Taken Unknown] famotidine 20 mg tablet 20 mg PO BID 05/06/20 [History Last Taken Unknown] insulin glargine 100 unit/mL subcutaneous solution 35 unit SC QHS ml 05/06/20 [History Last Taken Unknown] meloxicam 7.5 mg tablet 7.5 ea PO BID 05/06/20 [History Last Taken Unknown] oxycodone-acetaminophen 5 mg-325 mg tablet 1 tab PO TID PRN tablet 05/06/20 [History Last Taken Unknown] pregabalin 100 mg capsule 100 mg PO BID cap 05/06/20 [History Last Taken Unknown] propranolol 60 mg capsule,24 hr,extended release 60 mg PO DAILY 08/19/20 [History Last Taken Unknown] Allergy/AdvReac Type Severity Reaction Status Date / Time No Known Allergies Allergy Verified 09/03/20 15:45 Family History Mother Arthritis Diabetes Heart disease Hypertension High cholesterol Sister Asthma Arthritis Diabetes Grandmother Colon cancer Aunt Lupus Daughter Seizures Sister Diabetes Surgical History History of History of cholecystectomy History of discectomy History of fusion of cervical spine History of hysterectomy history right shoulder surgery Social History (Updated 09/03/20 @ 22:[address] Sienna Winchester MD) household members: spouse Smoking Status: Former smoker how long ago did patient quit smokin year ago alcohol intake: never substance use type: does not use caffeine: Yes Type: carbonated beverages Number of servings: 1 ROS ROS Narrative Admission Review of Systems: CONSTITUTIONAL: No weight loss, fever, chills, + weakness or fatigue. HEENT: Eyes: No visual loss, blurred vision, double vision or yellow sclerae. Ears, Nose, Throat: No hearing loss, sneezing, congestion, runny nose or sore throat. SKIN: No rash or itching, lesions, wounds. CARDIOVASCULAR: No chest pain, chest pressure or chest discomfort, palpitations, edema, orthopnea, syncopal events. RESPIRATORY: No shortness of breath, cough or sputum, wheezing, hemoptysis. GASTROINTESTINAL: No anorexia, nausea, vomiting or diarrhea, abdominal pain, melena, BRBPR. GENITOURINARY: No dysuria, frequency, urgency or retention. NEUROLOGICAL: + Tremors, extremity jerking, generalized weakness, paresthesias, No headache, dizziness, syncope, paralysis, ataxia, focal weakness, change in bowel or bladder control, seizure. MUSCULOSKELETAL: + muscle, back pain, joint pain or stiffness. HEMATOLOGIC: + anemia, bleeding or bruising. LYMPHATICS: No enlarged nodes. No history of splenectomy. PSYCHIATRIC: + history of depression or anxiety. ENDOCRINOLOGIC: No reports of sweating, cold or heat intolerance. No polyuria or polydipsia. ALLERGIES: No history of asthma, hives, eczema or rhinitis. Vital Signs Vital Signs Vital Signs: 09/03/20 15:39 09/03/20 15:40 Temperature 98.4 F Temperature Source Oral Pulse Rate 64 Respiratory Rate 15 Blood Pressure 106/52 L Blood Pressure Mean 70 Pulse Ox 95 Oxygen Delivery Method Room Air Weight Weight: 186 lb 4.65 oz Body Mass Index (BMI) 36.3 Physical Exam Narrative In the physical Examination: General: Awakens to stimuli, initially sleeping and very lethargic, more alert over time, oriented to self, place and year but did take some time to respond, eyes are bloodshot, fatigued appearing, remains cooperative, seated upright in the ED bed, no acute distress, did witness some mild jerking of her lower extremities while sleeping no specific jerking upon awakening despite startle. Skin: Normal color, normal turgor, no icterus, no cyanosis. HEENT: AT/NC, EOMI, PERRLA, dry MM, no carotid bruits or JVD noted. Lungs: Mildly diminished breath sounds, greater BL bases, moderate effort, no rales, ronchi or wheezing. Heart: Regular rate and rhythm; no gallop, rub audible. Abdomen: Soft, obese, NTTP, ND, distant normal BS, no obvious HSM. Extremities: No cyanosis, clubbing, or edema. Neurological: Awakens to stimuli, initially sleeping and very lethargic, more alert over time, oriented to self, place and year but did take some time to respond, eyes are bloodshot, fatigued appearing, remains cooperative, seated upright in the ED bed, no acute distress, did witness some mild jerking of her lower extremities while sleeping no specific jerking upon awakening despite startle, cognitive function improved, initially very lethargic, suspect near baseline intact; pupils equally reactive to light and accommodation, cranial nerves II-XII grossly normal, moving all 4 extremities, no specific focal deficits, strength moderately to severely globally decreased, negative Babinski. Psychiatric: Affect appears fatigued, flat no acute evidence of depressive or anxiety feelings. Results Lab / Micro Data Result Diagrams: 09/03/20 17:10 09/03/20 17:10 Labs: Laboratory Results - last 24 hr 09/03/20 17:10: WBC 8.3, RBC 4.15 L, Hgb 13.5, Hct 43.2, MCV 104.1 H, MCH 32.5 H, MCHC 31.3 L, RDW Std Deviation 56.8 H, RDW Coeff of Autumn 14.7 H, Plt Count 213, MPV 10.7, Immature Gran % (Auto) 0.400, Neut % (Auto) 47.9, Lymph % (Auto) 38.0, [place] % (Auto) 9.5, Eos % (Auto) 3.5, Baso % (Auto) 0.7, Absolute Neuts (auto) 4.0, Absolute Lymphs (auto) 3.15, Nucleated RBC % 0 09/03/20 17:10: Sodium 140, Potassium 6.1 H*, Chloride 108 H, Carbon Dioxide 24.0, Anion Gap 8, BUN 46 H, Creatinine 2.93 H, Estim Creat Clear Calc 14.48, Est GFR (MDRD) Af Amer 21 L, Est GFR (MDRD) Non-Af 17 L, BUN/Creatinine Ratio 15.7, Glucose 103, Calcium 9.8, Total Bilirubin 0.40, AST 63 H, ALT 44, Alkaline Phosphatase 38 L, Troponin I High Sens 8.5, Total Protein 7.7, Albumin 3.6, Globulin 4.1, Albumin/Globulin Ratio 0.9 09/03/20 17:10: Ethyl Alcohol < 3.0 09/03/20 18:26: Urine Opiates Screen POSITIVE H, Urine Methadone Screen NEGATIVE, Ur Barbiturates Screen NEGATIVE, Ur Phencyclidine Scrn NEGATIVE, Ur Amphetamines Screen NEGATIVE, U Methamphetamin-MDMA NEGATIVE, U Benzodiazepines Scrn NEGATIVE, Urine Cocaine Screen NEGATIVE, U Cannabinoids Screen NEGATIVE, Ur Drug Screen Comment 09/03/20 18:26: Urine Color Rosita, Urine Clarity Clear, Urine pH 5.0, Ur Specific [place] 1.025, Urine Protein 30 H, Urine Glucose (UA) Normal, Urine Ketones 5 H, Urine Occult Blood 10 H, Urine Nitrite Negative, Urine Bilirubin 3 H, Urine Urobilinogen 1 H, Ur Leukocyte Esterase 500 H, Urine RBC 0 SEEN, Urine WBC 10-25 SEEN, Ur Squamous Epith Cells 0-5 SEEN, Ur Renal Epithelial Cell 0-5 SEEN, Urine Bacteria 0 SEEN, Hyaline Casts 10-25 SEEN, Urine Mucus 0 SEEN Radiology Impression Chest X-Ray 09/03/20 17:05 IMPRESSION: No acute cardiopulmonary process. Electronically Signed: Kristin Crouch MD at 17:45 EDT Tel , Service support , Brain CT 09/03/20 17:20 IMPRESSION: No acute intracranial hemorrhage or mass effect. Electronically Signed: Dale Rios MD ([place]) at 17:33 EDT , Service support , Assessment & Plan Assessment/Plan (1) Acute hyperkalemia: PLAN: The patient is a 59 y/o F w/ PMHx: Anxiety and Depression, Obesity, GERD, Diabetes mellitus type II, HTN, HLD, Chronic COPD, Tobacco use, Chronic cervical back pain s/p intervention 01/2019 who presents to the [facility] ED on 09/03/20 with complaint of ongoing weakness to her legs since the surgery with difficulty ambulating as well as worsened debility also in upper extremities more pronounced both but not ascending over the last 6 months with no alteration or loss of bowel or bladder but frequent falls secondary to her weakness including unfortunate trauma to the head with recent worsening tremors, confusion and lethargy prompting to bring him to the ED for evaluation. 1. Acute Encephalopathy secondary to Acute Urinary Tract Infection, #2: UA upon ED evaluation remarkable, pending UCx, continue IVFs, monitor I/Os, continue IV Rocephin w/ transition as able pending sensitivities and speciation. 2. Acute kidney injury: Unclear specific etiology but suspect hypovolemic component with concurrent suspected UTI. Admission BUN/Cr 46/2.93, prior baseline creatinine noted to be 0.9. Will hydrate, hold nephrotoxic medications and repeat chemistry in AM. If no improvement would plan FeNa and renal ultrasound assessment. 3. Hyperkalemia: Admission potassium 6.1, will aggressively hydrate, likely associated with as noted recent REINALDO with possible UTI, administered single dose Kayexalate in the ED, repeat potassium this evening. 4. Worsening Diffuse Weakness, Paresthesias, Tremors, Myoclonus: Presentation as not been ascending, occurring equally, will maintain on telemetry, continue neuro checks, will plan to obtain MRI brain with and without contrast as well as MRI cervical spine given timeline but will wait for improvement of her renal function prior to obtaining, would plan to obtain following imaging Neurology consultation. May need to consider EMG outpatient. From description per spouse significant extremity jerking seems to occur when she is falling asleep and also upon awakening or being startled more consistent almost with hypnogogic jerking but given poor historian preference to be cautious. 5. Diabetes mellitus type II with peripheral neuropathy: Hold oral home regimen, continue home insulin regimen, ADA diet, accu checks w/ ISS, continue patient home pregabalin regimen however if renal function worsens further would require alteration. 6. Chronic pain syndrome, chronic back pain, cervical: Patient is on long-acting and short acting narcotic therapy, given presentation with renal dysfunction will hold long-acting and transition to short acting regimen with oral and IV breakthrough with hold for sedation. 7. Anxiety and depression: We will continue patient home duloxetine regimen. 8. Chronic COPD: Not on chronic regimen, as needed albuterol, head of bed and I-S. 9. Chronic constipation: We will continue bowel regimen. 10. Hypertension: Holding patient home losartan, continue propranolol, as needed hydralazine. 11. Obesity: Weight loss and lifestyle changes encouraged. 12. Hyperlipidemia: Continue home statin regimen. 13. DVT prophylaxis: SCDs, heparin. Charges/Coding Visit Charges Inpatient E&M: 83566 Init Hosp L3
[2020-09-03] MEDS: Ceftriaxone 1 GM/50 ML BAG IV (19:59)
[2020-09-03] MEDS: 0.9% Normal Saline 1,000 ML 999 ML IV (19:59)
[2020-09-03 20:31] LABS: Lactic Acid 3.5 mmol/L (0.4-1.9)
[2020-09-03 20:37] VITALS: BP 104/79; PULSE 66; RESP 16; TEMP 36.9; O2SAT 99
[2020-09-03] MEDS: Sodium Polystyrene Sulfonate 15 GM/60 ML UDC PO (20:39)
[2020-09-03 21:15] VITALS: BP 105/62; PULSE 64; RESP 18; TEMP 37; O2SAT 92
[2020-09-03 21:19] LABS: Magnesium 2.1 mg/dL (1.6-2.6)
[2020-09-03 21:30] VITALS: BMI 35.1
[2020-09-03] MEDS: 0.9% Normal Saline 1,000 ML 125 ML IV (21:35)
[2020-09-03] MEDS: Pregabalin 50 MG Capsule 100 MG PO (23:13)
[2020-09-03] MEDS: Heparin Injection (Vial) 5,000 UNIT/ML VIAL 5000 UNIT SC (23:14)
[2020-09-03] MEDS: Docusate Sodium 100 MG Capsule PO (23:14)
[2020-09-03] MEDS: Pantoprazole Sodium 40 MG Tablet PO (23:14)
[2020-09-03] MEDS: Pravastatin 80 MG Tablet PO (23:14)
[2020-09-03 23:25] LABS: Bedside Glucose 51 mg/dL (70-110)
[2020-09-03 23:32] VITALS: PULSE 63
[2020-09-03 23:59] LABS: Anion Gap 5 (5-15); BUN 49 mg/dL (7-18); BUN/Creat Ratio 16.3 RATIO (10-20); Calcium,Total 9.5 mg/dL (8.5-10.1); Chloride 112 mmol/L (98-107); EST Glomerular Filtration Rate 17 mL/min (>60); Est Glom Filt Rate - Afr Amer 20 mL/min (>60); Estimated Creatinine Clearance 14.15 ml/min; Glucose 57 mg/dL (74-106); Potassium 6.1 mmol/L (3.5-5.1); Sodium Level 140 mmol/L (136-145)
[2020-09-04] VITALS (11 sets, daily range): BP systolic 104–112; BP diastolic 46–68; PULSE 61–68; RESP 16–20; TEMP 36.8–37.2; O2SAT 94–97
[2020-09-04] LABS: Reflex Lactate? Y
[2020-09-04 00:25] LABS: Lactic Acid 2.5 mmol/L (0.4-1.9)
[2020-09-04 00:26] LABS: Bedside Glucose 67 mg/dL (70-110)
[2020-09-04] MEDS: Sodium Polystyrene Sulfonate 15 GM/60 ML UDC PO (01:06)
[2020-09-04] MEDS: 0.9% Saline Lock 10 ML Syringe IV (01:09)
[2020-09-04] MEDS: Dextrose 50%-Water 25 GM/50 ML DISP.SYRIN IV (01:10)
[2020-09-04] MEDS: Insulin Lispro 100 UNIT/ML INSULN.PEN SC ×4 (01:10→22:16)
[2020-09-04] MEDS: Albuterol 2.5 MG/3 ML VIAL.NEB. INHALATION (01:16)
[2020-09-04] MEDS: Calcium Gluconate 1 GM/10 ML Vial IV (01:21)
[2020-09-04 02:26] LABS: Bedside Glucose 180 mg/dL (70-110)
[2020-09-04 03:28] LABS: Anion Gap 6 (5-15); BUN 48 mg/dL (7-18); BUN/Creat Ratio 18.4 RATIO (10-20); Calcium,Total 9.3 mg/dL (8.5-10.1); Chloride 112 mmol/L (98-107); Creatinine, Serum 2.61 mg/dL (0.55-1.02); EST Glomerular Filtration Rate 20 mL/min (>60); Est Glom Filt Rate - Afr Amer 24 mL/min (>60); Estimated Creatinine Clearance 16.26 ml/min; Glucose 167 mg/dL (74-106); Potassium 5.5 mmol/L (3.5-5.1); Sodium Level 140 mmol/L (136-145)
[2020-09-04 06:07] LABS: Absolute Lymphocyte Count 3.37 X10^3/uL (0.83-4.51); Absolute Neutrophil Count 1.9 X10^3/uL (2.0-7.7); Basophil# 0.02 X10^3/uL; Basophil% 0.3 % (0-1); Eosinophil# 0.21 X10^3/uL; Eosinophils% 3.5 % (0-5); Hematocrit 36.4 % (37-47); Hemoglobin 11.6 g/dL (12.0-15.0); Lymphocyte # 3.37 X10^3/ul (0.83-4.51); Lymphocyte % 55.6 % (19-41); Mean Corp Hgb Conc 31.9 g/dL (32-36); Mean Corpuscular Hgb 33.2 pg (27.0-32.0); Mean Corpuscular Volume 104.3 fL (81-99); Mean Platelet Vol. 10.9 fl (6.2-12.0); Monocyte# 0.59 X10^3/uL; Monocyte% 9.7 % (0-10); NRBC Flagged by Analyzer 0 % (0-5); Neutrophil # 1.86 X10^3/uL (2.7-7.7); Neutrophil % 30.7 % (47-70); Platelet Count 156 K/mm3 (150-450); RBC Distribution Width CV 14.8 % (11.6-14.6); RBC Distribution Width SD 57.1 fl (35.1-43.9); Red Blood Count 3.49 M/mm3 (4.2-5.4); White Blood Count 6.1 K/mm3 (4.4-11.0)
[2020-09-04] MEDS: 0.9% Normal Saline 1,000 ML 125 ML IV ×2 (06:10→16:19)
[2020-09-04 06:41] LABS: Bedside Glucose 94 mg/dL (70-110)
[2020-09-04 06:44] LABS: ALB/GLOB Ratio 0.9 RATIO (0.9-2.4); AST(SGOT) 44 U/L (15-37); Alanine Aminotransfer ALT/SGPT 33 U/L (13-56); Albumin, Serum 2.9 g/dL (3.2-5.0); Alkaline Phosphatase 32 U/L (45-117); Anion Gap 8 (5-15); BUN 46 mg/dL (7-18); BUN/Creat Ratio 17.8 RATIO (10-20); Calcium,Total 9.1 mg/dL (8.5-10.1); Chloride 112 mmol/L (98-107); Creatinine, Serum 2.58 mg/dL (0.55-1.02); EST Glomerular Filtration Rate 20 mL/min (>60); Est Glom Filt Rate - Afr Amer 24 mL/min (>60); Estimated Creatinine Clearance 16.45 ml/min; Globulin 3.4 g/dL (2.2-4.2); Glucose 107 mg/dL (74-106); Potassium 5.3 mmol/L (3.5-5.1); Protein, Total 6.3 g/dL (6.4-8.2); Sodium Level 142 mmol/L (136-145); Thyroid Stim Hormone (TSH) 1.09 uIU/mL (0.358-3.74)
[2020-09-04] MEDS: Docusate Sodium 100 MG Capsule PO (07:46)
[2020-09-04] MEDS: Aspirin E.C. 81 MG Tablet PO (07:47)
[2020-09-04] MEDS: DULoxetine Hcl 60 MG Capsule PO (07:47)
[2020-09-04] MEDS: Heparin Injection (Vial) 5,000 UNIT/ML VIAL 5000 UNIT SC ×2 (07:47→22:15)
[2020-09-04] MEDS: Polyethylene Glycol 3350 17 GM PACKET PO (07:48)
[2020-09-04] MEDS: Pregabalin 50 MG Capsule 100 MG PO ×2 (07:55→22:26)
[2020-09-04] MEDS: Glucerna Shake 120 ML LIQUID PO ×3 (07:56→16:19)
--- NOTE | 2020-09-04 11:03 | PN.HOSP_ITS ---
Documented by User: Angeles Jauregui NP, MEDICAL IMAGING SPECIALIST-C 09/04/20 11:27 Subjective Subjective Patient seen and examined. Complains of generalized weakness. Denies unilateral weakness, focal deficits, vision or speech changes. Patient states she has had memory difficulties for the past year. Denies fever, chills. Objective Data Objective Data Vital Signs: Vital Signs Temp Pulse Resp BP Pulse Ox 98.8 F 62 18 104/57 L 95 09/04/20 07:42 09/04/20 07:42 09/04/20 07:42 09/04/20 07:42 09/04/20 07:42 Oxygen Delivery Method Room Air Weight: 186 lb 4.65 oz Body Mass Index (BMI) 35.1 Intake & Output: Intake and Output for Last 24 Hours 09/02/20 09/03/20 09/04/20 23:59 23:59 23:59 Intake Total 1590 / 1590 1360.41 / 1360.41 Balance 1590 / 1590 1360.41 / 1360.41 Lab / Micro Data Result Diagrams: 09/04/20 05:31 09/04/20 05:31 Labs: Laboratory Results - last 24 hr 09/03/20 17:10: WBC 8.3, RBC 4.15 L, Hgb 13.5, Hct 43.2, MCV 104.1 H, MCH 32.5 H , MCHC 31.3 L, RDW Std Deviation 56.8 H, RDW Coeff of Autumn 14.7 H, Plt Count 213, MPV 10.7, Immature Gran % (Auto) 0.400, Neut % (Auto) 47.9, Lymph % (Auto) 38.0, [place] % (Auto) 9.5, Eos % (Auto) 3.5, Baso % (Auto) 0.7, Absolute Neuts (auto) 4.0, Absolute Lymphs (auto) 3.15, Nucleated RBC % 0 09/03/20 17:10: Sodium 140, Potassium 6.1 H*, Chloride 108 H, Carbon Dioxide 24.0, Anion Gap 8, BUN 46 H, Creatinine 2.93 H, Estim Creat Clear Calc 14.48, Est GFR (MDRD) Af Amer 21 L, Est GFR (MDRD) Non-Af 17 L, BUN/Creatinine Ratio 15.7, Glucose 103, Calcium 9.8, Total Bilirubin 0.40, AST 63 H, ALT 44, Alkaline Phosphatase 38 L, Troponin I High Sens 8.5, Total Protein 7.7, Albumin 3.6, Globulin 4.1, Albumin/Globulin Ratio 0.9 09/03/20 17:10: Ethyl Alcohol < 3.0 09/03/20 17:10: Phosphorus 5.0 H, Magnesium 2.1 09/03/20 18:26: Urine Opiates Screen POSITIVE H, Urine Methadone Screen NEGATIVE, Ur Barbiturates Screen NEGATIVE, Ur Phencyclidine Scrn NEGATIVE, Ur Amphetamines Screen NEGATIVE, U Methamphetamin-MDMA NEGATIVE, U Benzodiazepines Scrn NEGATIVE, Urine Cocaine Screen NEGATIVE, U Cannabinoids Screen NEGATIVE, Ur Drug Screen Comment 09/03/20 18:26: Urine Color Rosita, Urine Clarity Clear, Urine pH 5.0, Ur Specific [place] 1.025, Urine Protein 30 H, Urine Glucose (UA) Normal, Urine Ketones 5 H, Urine Occult Blood 10 H, Urine Nitrite Negative, Urine Bilirubin 3 H, Urine Urobilinogen 1 H, Ur Leukocyte Esterase 500 H, Urine RBC 0 SEEN, Urine WBC 10-25 SEEN, Ur Squamous Epith Cells 0-5 SEEN, Ur Renal Epithelial Cell 0-5 SEEN, Urine Bacteria 0 SEEN, Hyaline Casts 10-25 SEEN, Urine Mucus 0 SEEN 09/03/20 18:50: Lactic Acid 3.5 H* 09/03/20 23:03: Sodium 140, Potassium 6.1 H*, Chloride 112 H, Carbon Dioxide 23.0, Anion Gap 5, BUN 49 H, Creatinine 3.00 H, Estim Creat Clear Calc 14.15, Est GFR (MDRD) Af Amer 20 L, Est GFR (MDRD) Non-Af 17 L, BUN/Creatinine Ratio 16.3, Glucose 57 L, Calcium 9.5 09/03/20 23:07: POC Glucose 51 L 09/03/20 23:10: Lactic Acid 2.5 H* 09/04/20 00:18: POC Glucose 67 L 09/04/20 02:14: POC Glucose 180 H 09/04/20 03:00: Sodium 140, Potassium 5.5 H, Chloride 112 H, Carbon Dioxide 22.0, Anion Gap 6, BUN 48 H, Creatinine 2.61 H, Estim Creat Clear Calc 16.26, Est GFR (MDRD) Af Amer 24 L, Est GFR (MDRD) Non-Af 20 L, BUN/Creatinine Ratio 18.4, Glucose 167 H, Calcium 9.3 09/04/20 05:31: WBC 6.1, RBC 3.49 L, Hgb 11.6 L, Hct 36.4 L, MCV 104.3 H, MCH 33.2 H, MCHC 31.9 L, RDW Std Deviation 57.1 H, RDW Coeff of Autumn 14.8 H, Plt Count 156, MPV 10.9, Immature Gran % (Auto) 0.200, Neut % (Auto) 30.7 L, Lymph % (Auto) 55.6 H, [place] % (Auto) 9.7, Eos % (Auto) 3.5, Baso % (Auto) 0.3, Absolute Neuts (auto) 1.9 L, Absolute Lymphs (auto) 3.37, Nucleated RBC % 0 09/04/20 05:31: Sodium 142, Potassium 5.3 H, Chloride 112 H, Carbon Dioxide 22.0, Anion Gap 8, BUN 46 H, Creatinine 2.58 H, Estim Creat Clear Calc 16.45, Est GFR (MDRD) Af Amer 24 L, Est GFR (MDRD) Non-Af 20 L, BUN/Creatinine Ratio 17.8, Glucose 107 H, Calcium 9.1, Total Bilirubin 0.30, AST 44 H, ALT 33, Alkaline Phosphatase 32 L, Total Protein 6.3 L, Albumin 2.9 L, Globulin 3.4, Albumin/Globulin Ratio 0.9, TSH 1.09 09/04/20 06:32: POC Glucose 94 Radiography Diagnostic Testing: Radiology Impression Chest X-Ray 09/03/20 17:05 IMPRESSION: No acute cardiopulmonary process. Electronically Signed: Kristin Crouch MD at 17:45 EDT Tel , Service support , Brain CT 09/03/20 17:20 IMPRESSION: No acute intracranial hemorrhage or mass effect. Electronically Signed: Dale Rios MD ([place]) at 17:33 EDT , Service support , Physical Exam Const alert, oriented x3 and no apparent distress Orientation / Consciousness: awake, oriented to person, oriented to place and or iented to time HEENT normocephalic and moist oral mucous membranes Eyes PERRL, EOMs intact bilaterally and conjunctivae normal Neck no lymphadenopathy Resp normal respiratory effort and clear to auscultation bilaterally Cardio regular rate, regular rhythm and no murmurs Peripheral Pulses: pulses 2+ throughout GI normal to inspection, nondistended, normoactive bowel sounds, non-tender and non-distended Extremity normal to inspection Skin no rashes or lesions noted Lesions: no lesions Rashes: no rashes Trauma: no lacerations or abrasions Neuro CN's II-XII intact bilaterally, no focal motor deficits, no sensory deficits noted and deep tendon reflexes 2+ bilaterally Psych mental status grossly normal Mood & Affect: flat affect Assessment & Plan Assessment/Plan (1) Acute encephalopathy: (2) REINALDO (acute kidney injury): (3) UTI (urinary tract infection): PLAN: 1. Acute metabolic and infectious encephalopathy secondary to acute UTI, acute kidney injury-patient reports she has had some underlying confusion for at least 1 year. Mental status improving. Continue treatment of underlying processes. 2. Acute UTI-IV Rocephin pending cultures 3. Acute kidney injury with hyperkalemia-prior kidney function appears normal. IV fluids, trend BMP. Will check urine studies and renal ultrasound as well. 4. Worsening generalized weakness, paresthesias, myoclonus-plan for MRI of brain with and without contrast and MRI of cervical spine pending improvement in renal function. PT/OT. Case management consult. Will need outpatient neuro and spine surgery follow-up. 5. Type 2 diabetes [id number] with sliding scale insulin. Oral regimen on hold. 6. Chronic pain syndrome-on chronic opioid regimen 7. Anxiety/depression-on duloxetine. 8. Chronic COPD-as needed albuterol aerosol. 9. Hypertension-stable, continue losartan, propanolol. 10. Hyperlipidemia-continue statin 11. Obesity-encouraged diet lifestyle modifications. DVT prophylaxis-Heparin subcu This patient was seen by JOSE Damian under the supervision of Dr. Parker. Documented by User: Dr. Todd Parker MD 09/04/20 12:26 Objective Data Lab / Micro Data Result Diagrams: 09/04/20 05:31 09/04/20 05:31 Assessment & Plan Addt'l Comments This patient was seen in conjunction with JOSE Damian . I have independently interviewed and examined the patient and reviewed pertinent historical, laboratory, and other data. Please refer to JOSE Damian note for details of this patient's presentation, findings, and recommendations. I have reviewed JOSE Damian note and concur with documented findings. In brief, patient is a 59-year-old lady admitted with altered mental status and assessment of acute metabolic encephalopathy secondary to acute cystitis made admitted to a monitored bed for further management. Patient was also found to have acute kidney injury with hyperkalemia on admission Physical Examination: GENERAL: cooperative but appears ill looking HEENT: Atraumatic; EYES; Anicteric, Normal Conjunctiva NECK; supple, normal thyroid, RESPIRATORY: Diminished to auscultation CARDIOVASCULAR: Regular S1 S2, GI: soft, normoactive bowel sounds, : No Renal angle tenderness; EXTREMITIES: No edema, no clubbing, MUSCULOSKELETAL: no muscle waisting NEURO: Awake; no lateralizing signs. SKIN: No Rash PSYCH; Flat affect Assessment: 1. Acute metabolic encephalopathy 2. Acute cystitis 3. Acute kidney injury 4. Hyperkalemia 5. Physical deconditioning 6. Diabetes mellitus type 2 7. Depression with anxiety 8. Essential potential 9. Dyslipidemia 10. Chronic pain syndrome 11. Obesity with BMI of 36.4 12. COPD 13. DVT prophylaxis Recommendations: 1. I have discussed the results of my overview and impressions with the patient 2. Options for management were reviewed Charges/Coding Visit Charges Inpatient E&M: 27276 Subs Hosp L3
--- NOTE | 2020-09-04 11:12 | US_ITS ---
EXAM: US RETROPERITONEAL COMPLETE, RENAL CLINICAL INDICATION: Acute kidney ultrasound TECHNIQUE: Grayscale and color Doppler sonographic evaluation of the retroperitoneum was performed. This report was created using [employer] report generation technology. COMPARISON: None. FINDINGS: RIGHT KIDNEY: No hydronephrosis. No shadowing calculus. No perinephric collection is demonstrated. LEFT KIDNEY: No hydronephrosis. No shadowing calculus. No perinephric collection is demonstrated. BLADDER: Urinary bladder is distended with volume measuring approximately 921 mL. US/Kidney and Bladder IMPRESSION: Significantly distended (nearly 1 L volume) urinary bladder. INGRAM catheter should be considered, if clinically appropriate. Electronically Signed: Dale Rios MD ([place]) at 14:29 EDT , Service support ,
--- NOTE | 2020-09-04 12:36 | CASEMGMT ---
GA SORENSON assessment: Face to Face with patient for initial transition planning/care coordination assessment. RN DELTA introduced self and role at [facility], pt voices understanding and consent to assessment. Pt is sitting up in chair in no distress. Pt is A/Ox4 and answers all questions appropriately. Care providers, pharmacy, and demographics verified. Presentation: back surgery in 01/24 and pt with muscle tremors/weakness Admitting dx: Encephalopathy, UTI, REINALDO, Hyperkalemia PCP: Flor Thorne Specialists: [facility], cardio; [facility] neuro Preferred Pharmacy: [facility] Insurance: [facility] Prescription Benefit: [facility] Living Will/HPOA: Pt does not have LW/HPOA but would like AD info and info provided. LNOK: Travis Kenney, ; Dakota Petty Jr, son Living Arrangements: Pt lives with in 1 story home and states has had difficulty caring for self lately. Pt states has been having difficulty with ADL's and works. Transportation: Pt states [address] and states no transportation concerns. DME/HHC: Pt states has the following DME: shower chair, cane, walker and scooter. Pt states no need for any further DME. Pt states no hx of HHC or SNF, but per /pt, may need rehab prior to returning home. Pt states some concerns with going home at time of discharge. Pt is disabled. Pt states does not smoke cigarettes or drink ETOH. Pt states no further concerns/needs. CM to follow for PT/OT evals and any further discharge planning/needs. Advised pt to ask for CM if any further questions/concerns/needs arise, voices understanding. Pt Goal: Home Plan: [place]
[2020-09-04 15:02] LABS: Urine Sodium 72 mmol/L (Not Establ.)
--- NOTE | 2020-09-04 20:09 | NURSING ---
Bladder scanned for 833 ml at this time. .
--- NOTE | 2020-09-04 20:30 | NURSING ---
Straight cathed for 1100 at this time.
[2020-09-04] MEDS: Pravastatin 80 MG Tablet PO (22:17)
[2020-09-04] MEDS: Pantoprazole Sodium 40 MG Tablet PO (22:18)
[2020-09-04] MEDS: Ceftriaxone 1 GM/50 ML BAG IV (22:25)
[2020-09-04 22:40] LABS: Bedside Glucose 222 mg/dL (70-110)
[2020-09-04] MEDS: Acetaminophen 325 MG Tablet 650 MG PO (22:40)
[2020-09-05] VITALS (10 sets, daily range): BP systolic 110–155; BP diastolic 45–65; PULSE 58–73; RESP 16–18; TEMP 35.8–37.2; O2SAT 95–97
[2020-09-05] MEDS: 0.9% Normal Saline 1,000 ML 125 ML IV ×2 (00:16→08:24)
[2020-09-05] MEDS: oxyCODONE 5 MG Tablet PO ×2 (00:21→11:12)
--- NOTE | 2020-09-05 03:23 | NURSING ---
Pt continues to only void small amounts since straight cath. Bladder scanned for 523 at this time. Inserted 16 F orosco x 1 attempt at this time. 600 ml urine returned. Secured to right leg with stat lock.
[2020-09-05 06:03] LABS: Absolute Lymphocyte Count 2.15 X10^3/uL (0.83-4.51); Absolute Neutrophil Count 1.6 X10^3/uL (2.0-7.7); Basophil# 0.03 X10^3/uL; Basophil% 0.7 % (0-1); Eosinophil# 0.15 X10^3/uL; Eosinophils% 3.4 % (0-5); Hematocrit 35.7 % (37-47); Hemoglobin 11.5 g/dL (12.0-15.0); Lymphocyte # 2.15 X10^3/ul (0.83-4.51); Lymphocyte % 48.8 % (19-41); Mean Corp Hgb Conc 32.2 g/dL (32-36); Mean Corpuscular Volume 102.6 fL (81-99); Mean Platelet Vol. 10.7 fl (6.2-12.0); Monocyte# 0.44 X10^3/uL; NRBC Flagged by Analyzer 0 % (0-5); Neutrophil # 1.62 X10^3/uL (2.7-7.7); Neutrophil % 36.6 % (47-70); Platelet Count 135 K/mm3 (150-450); RBC Distribution Width CV 14.5 % (11.6-14.6); RBC Distribution Width SD 54.2 fl (35.1-43.9); Red Blood Count 3.48 M/mm3 (4.2-5.4); White Blood Count 4.4 K/mm3 (4.4-11.0)
[2020-09-05 06:30] LABS: Anion Gap 4 (5-15); BUN 27 mg/dL (7-18); BUN/Creat Ratio 21.6 RATIO (10-20); Calcium,Total 9.5 mg/dL (8.5-10.1); Chloride 114 mmol/L (98-107); Creatinine, Serum 1.25 mg/dL (0.55-1.02); EST Glomerular Filtration Rate 46 mL/min (>60); Est Glom Filt Rate - Afr Amer 56 mL/min (>60); Estimated Creatinine Clearance 33.95 ml/min; Glucose 117 mg/dL (74-106); Potassium 5.3 mmol/L (3.5-5.1); Sodium Level 142 mmol/L (136-145)
[2020-09-05 07:00] LABS: Bedside Glucose 105 mg/dL (70-110)
[2020-09-05] MEDS: Docusate Sodium 100 MG Capsule PO ×2 (08:24→21:20)
[2020-09-05] MEDS: Glucerna Shake 120 ML LIQUID PO ×3 (08:24→16:08)
[2020-09-05] MEDS: Heparin Injection (Vial) 5,000 UNIT/ML VIAL 5000 UNIT SC ×2 (08:25→21:20)
[2020-09-05] MEDS: DULoxetine Hcl 60 MG Capsule PO (08:25)
[2020-09-05] MEDS: Aspirin E.C. 81 MG Tablet PO (08:25)
[2020-09-05] MEDS: Propranolol LA 60 MG Capsule PO (08:28)
[2020-09-05] MEDS: Pregabalin 50 MG Capsule 100 MG PO ×2 (08:28→21:30)
--- NOTE | 2020-09-05 10:42 | PCM.PN.HOSP ---
Documented by User: Angeles Jauregui NP, [employer] 09/05/20 11:00 Subjective Subjective Patient seen and examined. Ingram in place due to retention. Patient continues to report generalized weakness, no new symptoms or complaints. Amendable to SNF for rehab at discharge. Objective Data Objective Data Vital Signs: Vital Signs Temp Pulse Resp BP Pulse Ox 96.4 F L 71 18 127/57 H 95 09/05/20 08:20 09/05/20 08:20 09/05/20 08:20 09/05/20 08:20 09/05/20 08:20 Oxygen Delivery Method Room Air Weight: 188 lb 14.978 oz Body Mass Index (BMI) 35.1 Intake & Output: Intake and Output for Last 24 Hours 09/03/20 09/04/20 09/05/20 23:59 23:59 23:59 Intake Total 1590 / 1590 2410.41 / 2910.41 2793.75 / 2793.75 Output Total / 5 1900 / 1900 Balance 1590 / 1590 1485.41 / 885.41 893.75 / 893.75 Medical Nutrition Assessment Dietitian: Nutrition Therapy Diagnosis Start: 09/04/20 11:00 Freq: Status: Active Protocol: Document 09/04/20 11:14 GELY (Rec: 09/04/20 11:14 GELY [id number]) Nutrition Malnutrition Evidence of Malnutrition Exists No Intake Problem Inadequate Oral Intake Etiology related to acute illness ( encephalopathy) Signs/Symptoms as evidenced by not feeling like eating and po intake only fair at meals. Status Active Problem Recommendation Dietitian Recommendations/Changes Will continue diet as ordered Will continue oral nutrition supplement at [facility]. Lab / Micro Data Result Diagrams: 09/05/20 04:45 09/05/20 04:45 Labs: Laboratory Results - last 24 hr 09/04/20 14:10: Ur Random Sodium 72, Urine Creatinine 137.00 09/04/20 22:13: POC Glucose 222 H 09/05/20 04:45: WBC 4.4, RBC 3.48 L, Hgb 11.5 L, Hct 35.7 L, MCV 102.6 H, MCH 33.0 H, MCHC 32.2, RDW Std Deviation 54.2 H, RDW Coeff of Autumn 14.5, Plt Count 135 L, MPV 10.7, Immature Gran % (Auto) 0.500, Neut % (Auto) 36.6 L, Lymph % (Auto) 48.8 H, [place] % (Auto) 10.0, Eos % (Auto) 3.4, Baso % (Auto) 0.7, Absolute Neuts (auto) 1.6 L, Absolute Lymphs (auto) 2.15, Nucleated RBC % 0 09/05/20 04:45: Sodium 142, Potassium 5.3 H, Chloride 114 H, Carbon Dioxide 24.0, Anion Gap 4 L, BUN 27 H, Creatinine 1.25 H, Estim Creat Clear Calc 33.95, Est GFR (MDRD) Af Amer 56 L, Est GFR (MDRD) Non-Af 46 L, BUN/Creatinine Ratio 21.6 H, Glucose 117 H, Calcium 9.5 09/05/20 06:30: POC Glucose 105 Micro: Microbiology 09/03/20 18:35 Urine, Clean Catch Urine Culture - Preliminary Culture exhibits no growth. Radiography Diagnostic Testing: Radiology Impression Renal Ultrasound 09/04/20 11:12 IMPRESSION: Significantly distended (nearly 1 L volume) urinary bladder. INGRAM catheter should be considered, if clinically appropriate. Electronically Signed: Dale Rios MD (Brooks) at 14:29 EDT , Service support , Physical Exam Const alert, oriented x3 and no apparent distress Orientation / Consciousness: awake, oriented to person, oriented to place and oriented to time HEENT normocephalic and moist oral mucous membranes Eyes PERRL, EOMs intact bilaterally and conjunctivae normal Neck no lymphadenopathy Resp normal respiratory effort and clear to auscultation bilaterally Cardio regular rate, regular rhythm and no murmurs Peripheral Pulses: pulses 2+ throughout GI normal to inspection, nondistended, normoactive bowel sounds, non-tender and non-distended Extremity normal to inspection Skin no rashes or lesions noted Lesions: no lesions Rashes: no rashes Trauma: no lacerations or abrasions Neuro CN's II-XII intact bilaterally, no focal motor deficits, no sensory deficits noted and deep tendon reflexes 2+ bilaterally Psych mental status grossly normal Mood & Affect: flat affect Assessment & Plan Assessment/Plan (1) UTI (urinary tract infection): (2) Acute encephalopathy: (3) REINALDO (acute kidney injury): PLAN: 1. Acute metabolic encephalopathy-patient reports she has had some underlying confusion for at least 1 year. Mental status improved. Continue treatment of underlying processes. 2. Acute UTI-ruled out. Urine culture with no growth. Rocephin discontinued. 3. Acute kidney injury with hyperkalemia-prior kidney function appears normal. Renal ultrasound showed no hydronephrosis however significantly distended urinary bladder. Ingram placed for retention with improvement in creatinine. FENa 0.5% indicating prerenal. DC further IV fluids. Suspect REINALDO due to retention. Will need voiding trial prior to DC. Trend BMP. 4. Worsening generalized weakness, paresthesias, myoclonus- MRI of brain with and without contrast and MRI of cervical spine ordered. PT/OT. Case management consult. Will need outpatient neuro and spine surgery follow-up. Amenable to SNF for rehab at discharge. 5. Type 2 diabetes [id number]-[id number] with sliding scale insulin. Oral regimen on hold. 6. Chronic pain syndrome-on chronic opioid regimen 7. Anxiety/depression-on duloxetine. 8. Chronic COPD-as needed albuterol aerosol. 9. Hypertension-stable, continue losartan, propanolol. 10. Hyperlipidemia-continue statin 11. Obesity-encouraged diet lifestyle modifications. DVT prophylaxis-Heparin subcu Discharge planning: SNF at discharge pending acceptance, imaging results. This patient was seen by JOSE Damian under the supervision of Dr. Parker. Documented by User: Dr. Todd Parker MD 09/05/20 11:35 Objective Data Lab / Micro Data Result Diagrams: 09/05/20 04:45 09/05/20 04:45 Assessment & Plan Addt'l Comments This patient was seen in conjunction with JOSE Damian . I have independently interviewed and examined the patient and reviewed pertinent historical, laboratory, and other data. Please refer to Angeles Juventino, [employer] note for details of this patient's presentation, findings, and recommendations. I have reviewed JOSE Damian note and concur with documented findings. In brief, patient is a 59-year-old lady admitted with altered mental status and assessment of acute metabolic encephalopathy secondary to acute cystitis made admitted to a monitored bed for further management. Patient was also found to have acute kidney injury with hyperkalemia on admission 09/05/2020; urine cultures came back and grew mixed organisms. Patient however remains significantly deconditioned plan therefore is for patient to be discharged to longterm facility pending insurance approval Physical Examination: GENERAL: cooperative but appears ill looking HEENT: Atraumatic; EYES; Anicteric, Normal Conjunctiva NECK; supple, normal thyroid, RESPIRATORY: Diminished to auscultation CARDIOVASCULAR: Regular S1 S2, GI: soft, normoactive bowel sounds, : No Renal angle tenderness; EXTREMITIES: No edema, no clubbing, MUSCULOSKELETAL: no muscle waisting NEURO: Awake; no lateralizing signs. SKIN: No Rash PSYCH; Flat affect Assessment: 1. Acute metabolic encephalopathy 2. Acute cystitis 3. Acute kidney injury 4. Hyperkalemia 5. Physical deconditioning 6. Diabetes mellitus type 2 7. Depression with anxiety 8. Essential potential 9. Dyslipidemia 10. Chronic pain syndrome 11. Obesity with BMI of 36.4 12. COPD 13. DVT prophylaxis Recommendations: 1. I have discussed the results of my overview and impressions with the patient 2. Options for management were reviewed Charges/Coding Visit Charges Inpatient E&M: 92952 Subs Hosp L2
[2020-09-05] MEDS: Insulin Lispro 100 UNIT/ML INSULN.PEN SC ×3 (11:14→21:20)
[2020-09-05] MEDS: Sodium Polystyrene Sulfonate 15 GM/60 ML UDC 30 GM PO (11:20)
[2020-09-05] MEDS: Acetaminophen 325 MG Tablet 650 MG PO (16:12)
[2020-09-05] MEDS: Pantoprazole Sodium 40 MG Tablet PO (21:24)
[2020-09-05] MEDS: Pravastatin 80 MG Tablet PO (21:24)
[2020-09-06] MEDS: oxyCODONE 5 MG Tablet PO ×2 (01:24→08:09)
[2020-09-06 03:00] VITALS: PULSE 65
[2020-09-06 03:30] VITALS: BP 158/65; PULSE 68; RESP 14; TEMP 36.8; O2SAT 95
[2020-09-06] MEDS: Acetaminophen 325 MG Tablet 650 MG PO (03:31)
[2020-09-06 05:36] LABS: Absolute Lymphocyte Count 2.18 X10^3/uL (0.83-4.51); Absolute Neutrophil Count 3.2 X10^3/uL (2.0-7.7); Basophil# 0.02 X10^3/uL; Basophil% 0.3 % (0-1); Eosinophil# 0.12 X10^3/uL; Hemoglobin 11.7 g/dL (12.0-15.0); Lymphocyte # 2.18 X10^3/ul (0.83-4.51); Lymphocyte % 36.6 % (19-41); Mean Corp Hgb Conc 33.4 g/dL (32-36); Mean Corpuscular Hgb 33.1 pg (27.0-32.0); Mean Corpuscular Volume 98.9 fL (81-99); Mean Platelet Vol. 10.6 fl (6.2-12.0); Monocyte# 0.48 X10^3/uL; Monocyte% 8.1 % (0-10); NRBC Flagged by Analyzer 0 % (0-5); Neutrophil # 3.15 X10^3/uL (2.7-7.7); Neutrophil % 52.8 % (47-70); Platelet Count 127 K/mm3 (150-450); RBC Distribution Width SD 51.4 fl (35.1-43.9); Red Blood Count 3.54 M/mm3 (4.2-5.4)
[2020-09-06 05:53] LABS: Anion Gap 6 (5-15); BUN 16 mg/dL (7-18); BUN/Creat Ratio 17.7 RATIO (10-20); Calcium,Total 9.6 mg/dL (8.5-10.1); Chloride 112 mmol/L (98-107); EST Glomerular Filtration Rate 67 mL/min (>60); Est Glom Filt Rate - Afr Amer 81 mL/min (>60); Estimated Creatinine Clearance 47.15 ml/min; Glucose 121 mg/dL (74-106); Potassium 4.2 mmol/L (3.5-5.1); Sodium Level 142 mmol/L (136-145)
[2020-09-06 07:00] VITALS: PULSE 71
[2020-09-06] MEDS: Glucerna Shake 120 ML LIQUID PO ×2 (08:10→12:03)
--- NOTE | 2020-09-06 09:00 | MRI_ITS ---
STUDY: MRI BRAIN WITH AND WITHOUT CONTRAST REASON FOR EXAM: Female, 59 years old. Weakness, confusion, tremors TECHNIQUE: Standardized multiplanar fat and water weighted pulse sequences were obtained. 17 ml IV Dotarem was administered for the contrast portion of the examination. COMPARISON: CT 09/03/2020 FINDINGS: Normal size of the ventricles and extra-axial spaces for the patient''s age. Normal white matter tracts of the supratentorial brain. There is no evidence for recent intracranial ischemia or other cause of cytotoxic edema on diffusion weighted imaging (DWI). Normal T2* images of the brain without demonstrated susceptibility artifact. There is no demonstrated hemosiderin stain. Normal bilateral basal ganglia. Normal thalami. There is no extra-axial fluid accumulation. Normal flow voids within the major intracranial circulation suggesting patency by spin echo criteria. Normal venous enhancement. There is no enhancing intra-axial or extra-axial abnormality. Normal sella turcica, pituitary gland, infundibular stalk, optic chiasm and hypothalamus. Normal tectal plate and pineal gland. Normal midbrain, mateus and medulla. Normal cerebellum. Normal basal cisterns. Normal bilateral temporal bones. Normal bilateral internal auditory canals. There are bilateral ocular lens implants with otherwise normal intraorbital contents. Normal visualized paranasal sinuses. Normal calvarium and skull base. Normal visualized soft tissue structures. Normal visualized upper cervical spine. MRI/Brain W/WO Contrast IMPRESSION: Normal unenhanced and enhanced MRI of the brain. Electronically Signed: Pablo Dumont MD at 11:12 EDT Tel , Service support ,
--- NOTE | 2020-09-06 09:00 | MRI_ITS ---
STUDY: MRI CERVICAL SPINE WITHOUT CONTRAST REASON FOR EXAM: Female, 59 years old. weakness, parasthesias TECHNIQUE: Standardized fat and water weighted pulse sequences were obtained in the sagittal and axial planes. COMPARISON: None FINDINGS: Normal foramen magnum and brainstem-cervical cord junction. Normal craniovertebral junction. Normal anterior atlantoaxial articulation. Normal odontoid process. Normal cervical lordosis. Normal vertebral bodies and posterior osseous elements. C2-3: Normal endplates. Normal disc height, signal and morphology. Normal central canal and intervertebral neural foramina. C3-4: Normal endplates. Normal disc height, signal and morphology. Normal central canal and intervertebral neural foramina. C4-5: Normal endplates. Normal disc height, signal and morphology. Normal central canal and intervertebral neural foramina. C5-6: Status post anterior cervical discectomy and fusion with anatomic alignment with moderate spinal stenosis with abutment of the right hemicord. C6-7: Status post anterior cervical discectomy and fusion with anatomic alignment and moderate spinal stenosis. C7-T1: Normal endplates. Normal disc height, signal and morphology. Normal central canal and intervertebral neural foramina. Normal cervical cord. Normal visualized soft tissue structures. MRI/Spine Cervical (Routine) IMPRESSION: Postsurgical changes as described above. Electronically Signed: Pablo Dumont MD at 11:15 EDT Tel , Service support ,
[2020-09-06] MEDS: Pregabalin 50 MG Capsule 100 MG PO (11:49)
[2020-09-06] MEDS: Docusate Sodium 100 MG Capsule PO (11:49)
[2020-09-06] MEDS: Polyethylene Glycol 3350 17 GM PACKET PO (11:50)
[2020-09-06] MEDS: Propranolol LA 60 MG Capsule PO (11:50)
[2020-09-06] MEDS: Aspirin E.C. 81 MG Tablet PO (11:50)
--- NOTE | 2020-09-06 11:50 | CASEMGMT ---
Social Work Met with patient in room per Angeles Jiménez for possible assisted placement. Patient spouse and patient daughter present. Patient agreeable to this social secretary speaking openly with family present. This social secretary inquired about discharge plan and possible assisted. Patient reports I am feeling much better. Patient spouse reports plan for patient to return to home with spouse. Patient sister plans to check in with patient during the day when patient spouse is working. Patient is requesting for home health care, physical and occupational therapy to work towards strengthening and endurance. Patient request for home health to be set up through [facility] ([facility]). Patient also request for an order for a shower chair and grab bars. Patient aware that there is no guarantee of DME being covered but a script can be provided with doctor/N.P. finds appropriate. Dr. Chappell then entering the room. Patient family with multiple questions about medical needs/status. This social secretary leaving room. Talia KOROMA CM update on above information and is to make referral to [facility] This social secretary to follow for scripts for requested DME. Will continue to follow as needed. Isaac MONTANO, SHANA
[2020-09-06] MEDS: Heparin Injection (Vial) 5,000 UNIT/ML VIAL 5000 UNIT SC (11:51)
[2020-09-06] MEDS: Insulin Lispro 100 UNIT/ML INSULN.PEN SC (11:52)
[2020-09-06 12:00] VITALS: BP 146/72; PULSE 70; RESP 16; TEMP 36.7; O2SAT 95
--- NOTE | 2020-09-06 12:05 | CASEMGMT ---
Per Beba HOLLAND, pt/ would like to go home with [facility] for PT/OT. Order placed and message left with Leilani at [facility] in regards to same. Pt still has orosco in place but will have removed and voiding trial prior to discharge. SN to be added if pt needs orosco to go home. CM to follow. Brad KOROMA CM
[2020-09-06 12:15] LABS: Bedside Glucose 204 mg/dL (70-110)
--- NOTE | 2020-09-06 12:27 | CASEMGMT ---
Social Work Signed script for shower chair and grab bars provided to patient and patient spouse. Isaac Betts MSW, SHARIFAS
[2020-09-06 13:00] VITALS: PULSE 72
--- NOTE | 2020-09-06 13:07 | DCINST_ITS ---
Discharge Instructions Diet Discharge Diet: Carb Control Diet Activity Discharge Activity: Return to Normal Activity Dressing / Incision Call your doctor if you observe: Inability to urinate, Shortness of breath, Dizziness and Chest pain Follow Up Care Test Results: Test results from this visit will be discussed in further detail at your follow-up appointment, if applicable. Discharge Plan Admission Admit Date/Time: 09/03/20 20:54 Primary Reason for Your Visit: Confusion, weakness Attending Provider: Stef Chappell [facility] Orders/Prescriptions Prescriptions: Continued oxycodone-acetaminophen [Percocet] 5-325 mg tablet 1 tab PO TID PRN (Reason: Pain Or Fever) RF: 0 Lantus U-100 Insulin 100 unit/mL solution 35 unit SC QHS RF: 0 pregabalin 100 mg capsule 100 mg PO BID RF: 0 meloxicam 7.5 mg tablet 7.5 ea PO BID RF: 0 aspirin [Adult Low Dose Aspirin] 81 mg tablet,delayed release (DR/EC) 81 mg PO DAILY RF: 0 docusate sodium 100 mg capsule 100 mg PO BID RF: 0 cetirizine 10 mg tablet 10 mg PO DAILY PRN (Reason: Pain) RF: 0 duloxetine 60 mg capsule,delayed release(DR/EC) 60 mg PO DAILY RF: 0 glimepiride 1 mg tablet 1 mg PO DAILY RF: 0 losartan 25 mg tablet 25 mg PO DAILY RF: 0 polyethylene glycol 3350 [Miralax] 17 gram powder in packet 17 g PO .3xweek RF: 0 Xtampza ER 13.5 mg cap,sprinkl,ER12hr(DONT CRUSH) 13.5 mg PO BID RF: 0 zolpidem 10 mg tablet 10 mg PO QHS PRN (Reason: Sleep) RF: 0 famotidine 20 mg tablet 20 mg PO BID RF: 0 propranolol [Inderal LA] 60 mg capsule,extended release 24 hr 60 mg PO DAILY RF: 0 pravastatin 80 MG tablet 80 mg PO QHS RF: 0 multivitamin with folic acid 1 TABLET tablet 1 tab PO DAILY RF: 0 dexlansoprazole 60 mg capsule,biphase delayed releas 60 mg PO QHS RF: 0 metformin 1,000 MG tablet 1,000 mg PO BID RF: 0 Discontinued cyclobenzaprine 10 mg tablet 10 ea PO TID RF: 0 Referrals / Follow Up: Damion Castillo MD [STAFF PHYSICIAN] - [facility] [Primary [facility] Provider[facility] - In 1 Week Disposition Disposition (needs filled in before D/C Order can be placed): Home Health Service
[2020-09-06] MEDS: DULoxetine Hcl 60 MG Capsule PO (13:19)
--- NOTE | 2020-09-06 13:20 | PCM.DC.SUM ---
Documented by User: Angeles Jauregui NP, [employer] 09/06/20 13:41 Providers Date of Admission: 09/03/20 Date of Discharge: 09/06/20 Primary Care Physician: [facility] Reason For Visit: ENCEPHALOPATHY, UTI, REINALDO,HYPER K Diagnosis Discharge Diagnosis (1) UTI (urinary tract infection): Status: Acute Code(s): N39.0 - Urinary tract infection, site not specified (2) Acute encephalopathy: Status: Acute Code(s): G93.40 - Encephalopathy, unspecified (3) REINALDO (acute kidney injury): Status: Acute Code(s): N17.9 - Acute kidney failure, unspecified Medications at Discharge Home Medications multivitamin with folic acid 1 tab PO DAILY 06/13/13 pravastatin 80 mg PO QHS 06/13/13 dexlansoprazole 60 mg capsule,biphase delayed release 60 mg PO QHS 10/30/19 metformin 1,000 mg PO BID 11/10/19 cetirizine 10 mg tablet 10 mg PO DAILY PRN 04/20/20 duloxetine 60 mg capsule,delayed release 60 mg PO DAILY 04/20/20 glimepiride 1 mg tablet 1 mg PO DAILY 04/20/20 losartan 25 mg tablet 25 mg PO DAILY 04/20/20 oxycodone myristate 13.5 mg capsule sprinkle extend release 12hr(DON'T CRUSH) 13.5 mg PO BID 04/20/20 polyethylene glycol 3350 17 gram oral powder packet 17 g PO .3xweek ea 04/20/20 zolpidem 10 mg tablet 10 mg PO QHS PRN 04/20/20 aspirin 81 mg tablet,delayed release 81 mg PO DAILY 05/06/20 docusate sodium 100 mg capsule 100 mg PO BID 05/06/20 famotidine 20 mg tablet 20 mg PO BID 05/06/20 insulin glargine 100 unit/mL subcutaneous solution 35 unit SC QHS ml 05/06/20 meloxicam 7.5 mg tablet 7.5 ea PO BID 05/06/20 oxycodone-acetaminophen 5 mg-325 mg tablet 1 tab PO TID PRN tablet 05/06/20 pregabalin 100 mg capsule 100 mg PO BID cap 05/06/20 propranolol 60 mg capsule,24 hr,extended release 60 mg PO DAILY 08/19/20 Hospital Course Operations None Procedures None Summary of Care Provided Minutes Spent on Discharge: 35 Hospital Course: Patient is a 59-year-old female admitted 09/03/2020 due to worsening weakness, confusion. 1. Acute metabolic encephalopathy-patient reports she has had some underlying confusion for at least 1 year. Mental status improved. Continue treatment of underlying processes. Suspect related to polypharmacy as well. Home muscle relaxer discontinued. Home with home health/therapies at discharge. 2. Acute UTI-ruled out. Urine culture with no growth. Rocephin discontinued. 3. Acute kidney injury with hyperkalemia-prior kidney function appears normal. Renal ultrasound showed no hydronephrosis however significantly distended urinary bladder. Madison placed for retention and creatinine returned to normal. FENa 0.5% indicating prerenal. DC further IV fluids. REINALDO due to retention. Voiding trial prior to discharge. If patient has recurrent retention, will need urology referral. 4. Worsening generalized weakness, paresthesias, myoclonus- MRI of brain with and without contrast and MRI of cervical spine unremarkable. Will need outpatient neuro and spine surgery follow-up. Referred to neurology for further outpatient evaluation. Follow-up with primary spine surgeon for routine follow-up as well. 5. Type 2 diabetes mellitus-continue home oral regimen. 6. Chronic pain syndrome-on chronic opioid regimen. 7. Anxiety/depression-on duloxetine. 8. Chronic COPD-not on regimen. 9. Hypertension-stable, continue losartan, propanolol. 10. Hyperlipidemia-continue statin 11. Obesity-encouraged diet lifestyle modifications. Physical Exam Const alert, oriented x3 and no apparent distress Orientation / Consciousness: awake, oriented to person, oriented to place and oriented to time HEENT normocephalic and moist oral mucous membranes Eyes PERRL, EOMs intact bilaterally and conjunctivae normal Neck no lymphadenopathy Resp normal respiratory effort and clear to auscultation bilaterally Cardio regular rate, regular rhythm and no murmurs Peripheral Pulses: pulses 2+ throughout GI normal to inspection, nondistended, normoactive bowel sounds, non-tender and non-distended Extremity normal to inspection Skin no rashes or lesions noted Lesions: no lesions Rashes: no rashes Trauma: no lacerations or abrasions Neuro CN's II-XII intact bilaterally, no focal motor deficits, no sensory deficits noted and deep tendon reflexes 2+ bilaterally Psych mental status grossly normal Mood & Affect: flat affect Patient seen and examined prior to discharge. Physical assessment as noted above. Patient is stable for discharge with follow up recommendations as noted above. This patient was seen by JOSE Damian under the supervision of Dr. Chappell. Medical Records Data Medical Nutrition Assessment Dietitian: Nutrition Therapy Diagnosis Start: 09/04/20 11:00 Freq: Status: Active Protocol: Document 09/04/20 11:14 [facility] (Rec: 09/04/20 11:14 [facility] [id number]) Nutrition Malnutrition Evidence of Malnutrition Exists No Intake Problem Inadequate Oral Intake Etiology related to acute illness ( encephalopathy) Signs/Symptoms as evidenced by not feeling like eating and po intake only fair at meals. Status Active Problem Recommendation Dietitian Recommendations/Changes Will continue diet as ordered Will continue oral nutrition supplement at [facility]. Weight / BMI Weight Weight: 185 lb 6.54 oz Body Mass Index (BMI) 35.1 ABG / Lab / Microbiology Data Result Diagrams: 09/06/20 04:58 09/06/20 04:58 Laboratory: Laboratory Results - last 24 hr 09/06/20 04:58: WBC 6.0, RBC 3.54 L, Hgb 11.7 L, Hct 35.0 L, MCV 98.9, MCH 33.1 H, MCHC 33.4, RDW Std Deviation 51.4 H, RDW Coeff of Autumn 14.0, Plt Count 127 L, MPV 10.6, Immature Gran % (Auto) 0.200, Neut % (Auto) 52.8, Lymph % (Auto) 36.6, Lamar % (Auto) 8.1, Eos % (Auto) 2.0, Baso % (Auto) 0.3, Absolute Neuts (auto) 3.2, Absolute Lymphs (auto) 2.18, Nucleated RBC % 0 09/06/20 04:58: Sodium 142, Potassium 4.2, Chloride 112 H, Carbon Dioxide 24.0, Anion Gap 6, BUN 16, Creatinine 0.90, Estim Creat Clear Calc 47.15, Est GFR (MDRD) Af Amer 81, Est GFR (MDRD) Non-Af 67, BUN/Creatinine Ratio 17.7, Glucose 121 H, Calcium 9.6 09/06/20 11:44: POC Glucose 204 H Microbiology: Microbiology 09/03/20 19:51 Blood Culture (Wb) - Venous Blood Culture - Preliminary No growth in 48 hours. 09/03/20 19:51 Blood Culture (Wb) - Venous Blood Culture - Preliminary No growth in 48 hours. 09/03/20 18:35 Urine, Clean Catch Urine Culture - Final Mixed Gram Positive Organisms Radiography Diagnostic Testing: Radiology Impression Brain MRI 09/06/20 09:00 IMPRESSION: Normal unenhanced and enhanced MRI of the brain. Electronically Signed: Pablo Dumont MD at 11:12 EDT Tel , Service support , Cervical Spine MRI 09/06/20 09:00 IMPRESSION: Postsurgical changes as described above. Electronically Signed: Pablo Dumont MD at 11:15 EDT Tel , Service support , D/C Instructions Discharge Diet: Carb Control Diet Call your doctor if you observe: Inability to urinate, Shortness of breath, Dizziness and Chest pain Meaningful Use Info Meaningful Use Diagnoses (Choose all that apply): None applicable Discharge Plan Admission Admit Date/Time: 09/03/20 20:54 Primary Reason for Your Visit: Confusion, weakness Attending Provider: Stef Chappell [facility] Orders[facility]Prescriptions Prescriptions: Continued oxycodone-acetaminophen [Percocet] 5-325 mg tablet 1 tab PO TID PRN (Reason: Pain Or Fever) RF: 0 Lantus U-100 Insulin 100 unit/mL solution 35 unit SC QHS RF: 0 pregabalin 100 mg capsule 100 mg PO BID RF: 0 meloxicam 7.5 mg tablet 7.5 ea PO BID RF: 0 aspirin [Adult Low Dose Aspirin] 81 mg tablet,delayed release (DR/EC) 81 mg PO DAILY RF: 0 docusate sodium 100 mg capsule 100 mg PO BID RF: 0 cetirizine 10 mg tablet 10 mg PO DAILY PRN (Reason: Pain) RF: 0 duloxetine 60 mg capsule,delayed release(DR/EC) 60 mg PO DAILY RF: 0 glimepiride 1 mg tablet 1 mg PO DAILY RF: 0 losartan 25 mg tablet 25 mg PO DAILY RF: 0 polyethylene glycol 3350 [Miralax] 17 gram powder in packet 17 g PO .3xweek RF: 0 Xtampza ER 13.5 mg cap,sprinkl,ER12hr(DONT CRUSH) 13.5 mg PO BID RF: 0 zolpidem 10 mg tablet 10 mg PO QHS PRN (Reason: Sleep) RF: 0 famotidine 20 mg tablet 20 mg PO BID RF: 0 propranolol [Inderal LA] 60 mg capsule,extended release 24 hr 60 mg PO DAILY RF: 0 pravastatin 80 MG tablet 80 mg PO QHS RF: 0 multivitamin with folic acid 1 TABLET tablet 1 tab PO DAILY RF: 0 dexlansoprazole 60 mg capsule,biphase delayed releas 60 mg PO QHS RF: 0 metformin 1,000 MG tablet 1,000 mg PO BID RF: 0 Discontinued cyclobenzaprine 10 mg tablet 10 ea PO TID RF: 0 Referrals / Follow Up: Damion Castillo MD [STAFF PHYSICIAN] - Within 2 Weeks (Office should call you to schedule apt, if you don't hear from them by 09/07/2020 please call them. ) [facility] [Primary Care Provider] - 09/14/20 2:20 pm Disposition Disposition (needs filled in before D/C Order can be placed): Home Health Service Documented by User: Dr. Stef Chappell DO 09/06/20 15:09 Providers Date of Admission: 09/03/20 Reason For Visit: ENCEPHALOPATHY, UTI, REINALDO,HYPER K Medications at Discharge Home Medications multivitamin with folic acid 1 tab PO DAILY 06/13/13 pravastatin 80 mg PO QHS 06/13/13 dexlansoprazole 60 mg capsule,biphase delayed release 60 mg PO QHS 10/30/19 metformin 1,000 mg PO BID 11/10/19 cetirizine 10 mg tablet 10 mg PO DAILY PRN 04/20/20 duloxetine 60 mg capsule,delayed release 60 mg PO DAILY 04/20/20 glimepiride 1 mg tablet 1 mg PO DAILY 04/20/20 losartan 25 mg tablet 25 mg PO DAILY 04/20/20 oxycodone myristate 13.5 mg capsule sprinkle extend release 12hr(DON'T CRUSH) 13.5 mg PO BID 04/20/20 polyethylene glycol 3350 17 gram oral powder packet 17 g PO .3xweek ea 04/20/20 zolpidem 10 mg tablet 10 mg PO QHS PRN 04/20/20 aspirin 81 mg tablet,delayed release 81 mg PO DAILY 05/06/20 docusate sodium 100 mg capsule 100 mg PO BID 05/06/20 famotidine 20 mg tablet 20 mg PO BID 05/06/20 insulin glargine 100 unit/mL subcutaneous solution 35 unit SC QHS ml 05/06/20 meloxicam 7.5 mg tablet 7.5 ea PO BID 05/06/20 oxycodone-acetaminophen 5 mg-325 mg tablet 1 tab PO TID PRN tablet 05/06/20 pregabalin 100 mg capsule 100 mg PO BID cap 05/06/20 propranolol 60 mg capsule,24 hr,extended release 60 mg PO DAILY 08/19/20 Hospital Course Summary of Care Provided Minutes Spent on Discharge: 36 Hospital Course: 59-year-old female presents with confusion. Urinary tract infection ruled out as urinalysis was fairly unremarkable and urine culture was polymicrobial indicative of not sure infection. However the patient did have acute kidney injury likely related to urinary retention. Madison catheter was placed. Madison catheter was removed today and patient will have a post void residual. Patient does require the catheter being placed patient will need to follow-up with urology as outpatient. Likely contributing to this was patient's polypharmacy. Patient is on extended oxycodone, Percocet, Lyrica as well as cyclobenzaprine. Advised patient discontinue cyclobenzaprine moving forward and follow pain management doctor to see how better pain medications can be better optimized to help mitigate confusion episodes. Patient did have acute kidney injury upon arrival were creatinine was 3. After the catheter was placed her creatinine is steadily improved and upon discharge her creatinine is down to 0.9. Patient did have an MRI of her brain that was unremarkable and a etiology of her confusion. It is possible the patient's acute kidney injury that there may been metabolite buildup with her polypharmacy that may have enhance her confusion. Patient is now back to her baseline. Patient does have tremors in her upper extremities appear to be worse with stress. Talked with the patient's family that follow-up neurology would be in her best interest for evaluation. I am suspecting is probably more of an essential tremor rather than Parkinson's but neurology evaluation will help delineate this. Physical Exam Const alert and oriented x3 HEENT normocephalic Cardio regular rate and regular rhythm GI normal to inspection, nondistended, normoactive bowel sounds Extremity normal to inspection ABG / Lab / Microbiology Data Result Diagrams: 09/06/20 04:58 09/06/20 04:58 Discharge Plan Admission Admit Date/Time: 09/03/20 20:54 Primary Reason for Your Visit: Confusion, weakness Attending Provider: Stef Chappell [facility] Orders/Prescriptions Prescriptions: Continued oxycodone-acetaminophen [Percocet] 5-325 mg tablet 1 tab PO TID PRN (Reason: Pain Or Fever) RF: 0 Lantus U-100 Insulin 100 unit/mL solution 35 unit SC QHS RF: 0 pregabalin 100 mg capsule 100 mg PO BID RF: 0 meloxicam 7.5 mg tablet 7.5 ea PO BID RF: 0 aspirin [Adult Low Dose Aspirin] 81 mg tablet,delayed release (DR/EC) 81 mg PO DAILY RF: 0 docusate sodium 100 mg capsule 100 mg PO BID RF: 0 cetirizine 10 mg tablet 10 mg PO DAILY PRN (Reason: Pain) RF: 0 duloxetine 60 mg capsule,delayed release(DR/EC) 60 mg PO DAILY RF: 0 glimepiride 1 mg tablet 1 mg PO DAILY RF: 0 losartan 25 mg tablet 25 mg PO DAILY RF: 0 polyethylene glycol 3350 [Miralax] 17 gram powder in packet 17 g PO .3xweek RF: 0 Xtampza ER 13.5 mg cap,sprinkl,ER12hr(DONT CRUSH) 13.5 mg PO BID RF: 0 zolpidem 10 mg tablet 10 mg PO QHS PRN (Reason: Sleep) RF: 0 famotidine 20 mg tablet 20 mg PO BID RF: 0 propranolol [Inderal LA] 60 mg capsule,extended release 24 hr 60 mg PO DAILY RF: 0 pravastatin 80 MG tablet 80 mg PO QHS RF: 0 multivitamin with folic acid 1 TABLET tablet 1 tab PO DAILY RF: 0 dexlansoprazole 60 mg capsule,biphase delayed releas 60 mg PO QHS RF: 0 metformin 1,000 MG tablet 1,000 mg PO BID RF: 0 Discontinued cyclobenzaprine 10 mg tablet 10 ea PO TID RF: 0 Referrals / Follow Up: Damion Castillo MD [STAFF PHYSICIAN] - Within 2 Weeks (Office should call you to schedule apt, if you don't hear from them by 09/07/2020 please call them. ) [facility] [Primary Care Provider] - 09/14/20 2:20 pm Disposition Disposition (needs filled in before D/C Order can be placed): Home Health Service Charges/Coding Visit Charges Inpatient E&M: 29699 Disch Hosp
--- NOTE | 2020-09-06 14:00 | PHA.DC.MR ---
Pharmacy Service has performed discharge medication reconciliation for this patient. The patient's discharge medication list was reviewed for discrepancies and discrepancies were resolved. Home Medications multivitamin with folic acid 1 tab PO DAILY 06/13/13 pravastatin 80 mg PO QHS 06/13/13 dexlansoprazole 60 mg capsule,biphase delayed release 60 mg PO QHS 10/30/19 metformin 1,000 mg PO BID 11/10/19 cetirizine 10 mg tablet 10 mg PO DAILY PRN 04/20/20 duloxetine 60 mg capsule,delayed release 60 mg PO DAILY 04/20/20 glimepiride 1 mg tablet 1 mg PO DAILY 04/20/20 losartan 25 mg tablet 25 mg PO DAILY 04/20/20 oxycodone myristate 13.5 mg capsule sprinkle extend release 12hr(DON'T CRUSH) 13.5 mg PO BID 04/20/20 polyethylene glycol 3350 17 gram oral powder packet 17 g PO .3xweek ea 04/20/20 zolpidem 10 mg tablet 10 mg PO QHS PRN 04/20/20 aspirin 81 mg tablet,delayed release 81 mg PO DAILY 05/06/20 docusate sodium 100 mg capsule 100 mg PO BID 05/06/20 famotidine 20 mg tablet 20 mg PO BID 05/06/20 insulin glargine 100 unit/mL subcutaneous solution 35 unit SC QHS ml 05/06/20 meloxicam 7.5 mg tablet 7.5 ea PO BID 05/06/20 oxycodone-acetaminophen 5 mg-325 mg tablet 1 tab PO TID PRN tablet 05/06/20 pregabalin 100 mg capsule 100 mg PO BID cap 05/06/20 propranolol 60 mg capsule,24 hr,extended release 60 mg PO DAILY 08/19/20
[2020-09-06 16:59] VITALS: BP 158/73; PULSE 62; RESP 16; TEMP 36.7; O2SAT 97
--- NOTE | 2020-09-07 13:13 | CASEMGMT ---
GA SORENSON Discharge Follow-Up Phone Call. [place]: 11 Strata: 3 Discharge Date: 09/06/20 Adm Dx: Encephalopathy, UTI, REINALDO, HyperK Attempted to call pt to inquire about how she has been doing since being discharged from the hospital. Call went immediately to x 2 attempts. Call placed to pt's husbands # and RN DELTA spoke w/him. He states he is not home currently, but that he could talk w/this RN DELTA. He was made aware RN DELTA unable to reach his and that calls went straight to . He states that her phone has been acting up and I'll check on it when I get home. He states pt has been doing really good. He states he does not have any questions about the discharge instructions or medications and pt has stopped taking the muscle relaxer as instructed, stating, I got rid of them already. He is aware of the appt @ [facility] on 09/14 and states pt is planning on calling to schedule an appt w/Dr Castillo this afternoon. He states [facility] has not contacted them for SOC yet. He was made aware there may be a message from them on his 's VM if the calls are not going through. RN DELTA informed this RN DELTA could reach out to [facility] to let them know to call pt's if unable to reach pt via her #. He voices appreciation. He also voices appreciation for [facility] helping his get better. Call placed to [facility] and left for Leilani to try and reach pt/ via his #, if unable to reach pt via hers. Juan CAMERON RN, CM
== END 2020-09-06 17:05 | disposition home health service (06) | DRG 682 ==
LOC: ED 19:47 → PCU 21:00
PROVIDERS: Internal Medicine; Nurse Practitioner Family; Admitting Provider Family Medicine; Emergency Provider Emergency Medicine
DX: N17.9 Acute kidney failure, unspecified (principal); G93.41 Metabolic encephalopathy; E87.5 Hyperkalemia; R33.9 Retention of urine, unspecified; J44.9 Chronic obstructive pulmonary disease, unspecified; G89.4 Chronic pain syndrome; I10 Essential (primary) hypertension; E78.5 Hyperlipidemia, unspecified; E66.9 Obesity, unspecified; M19.90 Unspecified osteoarthritis, unspecified site; F41.8 Other specified anxiety disorders; R29.6 Repeated falls; E11.42 Type 2 diabetes mellitus with diabetic polyneuropathy; K21.9 Gastro-esophageal reflux disease without esophagitis; Z79.891 Long term (current) use of opiate analgesic; Z68.36 Body mass index [BMI] 36.0-36.9, adult; Z79.899 Other long term (current) drug therapy; Z79.4 Long term (current) use of insulin; Z87.891 Personal history of nicotine dependence
CPT/HCPCS: 36415; 70450; 70553; 71045; 72141; 76770; 80048; 80053; 80307; 81001; 82077; 82570; 82962; 83605; 83735; 84100; 84300; 84443; 84484; 85025; 87040; 87086; 87088; 93005; 94640; 97162; 97166; 97530; 97535; 97802; 99251; 99285; A9575; J7030; J7040; A4216; G0463; J0610

== ENCOUNTER → 2020-09-17 14:15 | Outpatient (CLI) | payer MEDICARE, SELFPAY ==
[2020-09-03 21:30] VITALS: BMI 35.1
[2020-09-17 17:16] LABS: HIV - WCH Non-Reactive (Nonreactive); Vitamin B12 353 pg/mL (211-911)
[2020-09-17 17:22] LABS: ALB/GLOB Ratio 0.8 RATIO (0.9-2.4); AST(SGOT) 42 U/L (15-37); Alanine Aminotransfer ALT/SGPT 55 U/L (13-56); Albumin, Serum 3.5 g/dL (3.2-5.0); Alkaline Phosphatase 41 U/L (45-117); Anion Gap 7 (5-15); BUN 19 mg/dL (7-18); BUN/Creat Ratio 20.5 RATIO (10-20); Calcium,Total 10.8 mg/dL (8.5-10.1); Chloride 104 mmol/L (98-107); Creatinine, Serum 0.93 mg/dL (0.55-1.02); EST Glomerular Filtration Rate 65 mL/min (>60); Est Glom Filt Rate - Afr Amer 79 mL/min (>60); Globulin 4.5 g/dL (2.2-4.2); Glucose 131 mg/dL (74-106); Potassium 5.5 mmol/L (3.5-5.1); Sodium Level 138 mmol/L (136-145); Thyroid Stim Hormone (TSH) 1.46 uIU/mL (0.358-3.74)
[2020-09-20 14:08] LABS: Immunoglobulin A 267 mg/dL (87-352); Immunoglobulin G 1080 mg/dL (586-1602); PROEL- A/G Ratio 0.8 (0.7-1.7); PROEL- Albumin 3.3 g/dL (2.9-4.4); PROEL- Alpha-1 Globulin 0.3 g/dL (0.0-0.4); PROEL- Alpha-2 Globulin 1.2 g/dL (0.4-1.0); PROEL- Beta Globulin 1.2 g/dL (0.7-1.3); PROEL- Gamma Globulin 1.2 g/dL (0.4-1.8); PROEL- Globulin, Total 3.9 g/dL (2.2-3.9); PROEL- TOTAL PROTEIN 7.2 g/dL (6.0-8.5)
[2020-09-20 16:26] LABS: Immunoglobulin M 225 mg/dL (26-217)
== END ==
PROVIDERS: Referring Provider Psychiatry & Neurology Neurology; Visit Provider Psychiatry & Neurology Neurology
DX: R20.2 Paresthesia of skin (principal); B20 Human immunodeficiency virus [HIV] disease; R73.09 Other abnormal glucose
CPT/HCPCS: 36415; 80053; 82607; 82746; 82784; 83036; 83921; 84165; 84443; 86334; 86703

== ENCOUNTER → 2020-10-05 09:16 | Outpatient (CLI) | payer MEDICARE, SELFPAY ==
[2020-10-05 10:18] LABS: Absolute Lymphocyte Count 2.98 X10^3/uL (0.83-4.51); Absolute Neutrophil Count 3.5 X10^3/uL (2.0-7.7); Basophil# 0.06 X10^3/uL; Basophil% 0.8 % (0-1); Eosinophil# 0.33 X10^3/uL; Eosinophils% 4.4 % (0-5); Hematocrit 39.5 % (37-47); Hemoglobin 12.9 g/dL (12.0-15.0); Lymphocyte # 2.98 X10^3/ul (0.83-4.51); Lymphocyte % 39.6 % (19-41); Mean Corp Hgb Conc 32.7 g/dL (32-36); Mean Corpuscular Hgb 33.2 pg (27.0-32.0); Mean Corpuscular Volume 101.5 fL (81-99); Mean Platelet Vol. 10.4 fl (6.2-12.0); Monocyte# 0.65 X10^3/uL; Monocyte% 8.6 % (0-10); NRBC Flagged by Analyzer 0 % (0-5); Neutrophil % 46.5 % (47-70); Platelet Count 212 K/mm3 (150-450); RBC Distribution Width CV 14.6 % (11.6-14.6); RBC Distribution Width SD 54.3 fl (35.1-43.9); Red Blood Count 3.89 M/mm3 (4.2-5.4); White Blood Count 7.5 K/mm3 (4.4-11.0)
[2020-10-05 10:39] LABS: PTHIN 37.3 pg/mL (18.4-80.1)
[2020-10-05 10:42] LABS: ALB/GLOB Ratio 0.8 RATIO (0.9-2.4); AST(SGOT) 30 U/L (15-37); Alanine Aminotransfer ALT/SGPT 39 U/L (13-56); Albumin, Serum 3.5 g/dL (3.2-5.0); Alkaline Phosphatase 45 U/L (45-117); Anion Gap 6 (5-15); BUN 27 mg/dL (7-18); BUN/Creat Ratio 23.5 RATIO (10-20); Calcium,Total 10.7 mg/dL (8.5-10.1); Chloride 105 mmol/L (98-107); Creatinine, Serum 1.15 mg/dL (0.55-1.02); EST Glomerular Filtration Rate 51 mL/min (>60); Est Glom Filt Rate - Afr Amer 62 mL/min (>60); Globulin 4.3 g/dL (2.2-4.2); Glucose 181 mg/dL (74-106); Magnesium 1.8 mg/dL (1.6-2.6); Potassium 5.4 mmol/L (3.5-5.1); Protein, Total 7.8 g/dL (6.4-8.2); Sodium Level 135 mmol/L (136-145)
[2020-10-05 10:44] LABS: Vitamin D,25 Hydroxy 38.5 ng/mL
== END ==
PROVIDERS: Referring Provider Nurse Practitioner Adult Health; Visit Provider Nurse Practitioner Adult Health
DX: E83.52 Hypercalcemia (principal); N39.0 Urinary tract infection, site not specified
CPT/HCPCS: 36415; 80053; 82306; 82330; 83735; 83970; 85025

== ENCOUNTER → 2020-10-07 16:03 | Outpatient (CLI) | payer MEDICARE, SELFPAY ==
[2020-10-07 17:04] LABS: 24HR UR TOTAL VOLUME 1750 ml; Calcium Urine pH Range 1
[2020-10-07 17:15] LABS: (24 HR) Urine Calcium < 5.0 mg/24 HR (42.0-353.0)
== END ==
PROVIDERS: Visit Provider Nurse Practitioner Adult Health
DX: E83.52 Hypercalcemia (principal)
CPT/HCPCS: 81050; 82340

== ENCOUNTER → 2020-10-12 12:54 | Outpatient (CLI) | payer MEDICARE, SELFPAY ==
--- NOTE | 2020-10-12 13:28 | BD_ITS ---
STUDY: DUAL ENERGY X-RAY ABSORPTIOMETRY / DXA REASON FOR EXAM: Female, 60 years old. M810 TECHNIQUE: Bone Mineral Density (BMD) measurements of lumbar spine and bilateral hips were obtained. COMPARISON: None. FINDINGS: Lumbar Spine (L1-L4): g/cm2 (0.929) / T-score (-0.5) / Z-score (1.0) Findings are suggestive of normal bone density with a low fracture risk. Left Femur Total: g/cm2 (0.728) / T-score (-1.8) / Z-score (-0.7) Left Femoral Neck: g/cm2 (0.551) / T-score (-2.7) / Z-score (-1.3) Right Femur Total: g/cm2 (0.793) / T-score (-1.2) / Z-score (-0.2) Right Femoral Neck: g/cm2 (0.571) / T-score (-2.5) / Z-score (-1.1) BD/Dexa Bone Density Study IMPRESSION: The patient is considered osteoporotic as outlined below according to World Pablo Organization (WHO) criteria with a high fracture risk. Reference Information: The T-score is the number of standard deviations above or below the standard which is normal for young adults at their peak bone mineral density. The World Health Organization (WHO) interprets the T-scores as follows: Above -1 Normal bone density Between -1 and -2.5 Osteopenia Equal to / or below -2.5 Osteoporosis As a practical clinical guideline, osteopenia may be graded as follows: Mild -1 through -1.5 Moderate -1.6 through -2.0 Severe -2.1 through -2.4 The Z-score is the number of standard deviations above or below age-matched controls. A Z-score of less than -1.5 would be considered abnormal. References: 1. NIH Osteoporosis and Related Bone Diseases www osteo.org 2. International Society for Clinical Densitometry www iscd.org 3. National Osteoporosis Foundation www nof.org Electronically Signed: Zafar Sue MD at 15:24 EDT , Service support ,
[2020-10-12 14:36] LABS: Vitamin B12 812 pg/mL (211-911)
[2020-10-12 15:21] LABS: Iron 116 ug/dL (50-170); Iron Binding Capacity,Total 390 ug/dL (250-450); Magnesium 2.1 mg/dL (1.6-2.6); PERCENT IRON SATURATION 29.7 % (15.0-55.0); Phosphorus 3.7 mg/dL (2.5-4.9)
[2020-10-14 19:48] LABS: Thyroid Peroxidase AB 9 IU/mL (0-34)
== END ==
PROVIDERS: Referring Provider Nurse Practitioner Adult Health; Visit Provider Nurse Practitioner Adult Health
DX: M81.0 Age-related osteoporosis without current pathological fracture (principal); E83.52 Hypercalcemia; D64.9 Anemia, unspecified
CPT/HCPCS: 36415; 77080; 82607; 82746; 83540; 83550; 83735; 84100; 86376

== ENCOUNTER → 2020-10-15 14:54 | Outpatient (CLI) | payer MEDICARE, SELFPAY | PROVIDERS: Referring Provider Nurse Practitioner Adult Health; Visit Provider Nurse Practitioner Adult Health | DX: E83.52 Hypercalcemia (principal); D64.9 Anemia, unspecified | CPT/HCPCS: 82274 ==

== ENCOUNTER 2020-12-08 18:33 | Emergency (ER) | payer MEDICARE, OTHER, SELFPAY ==
[2020-12-08 18:34] VITALS: BP 92/69; PULSE 81; RESP 16; TEMP 35.7; O2SAT 93; BMI 33.7
--- NOTE | 2020-12-08 20:05 | RAD_ITS ---
STUDY: X-RAY - LEFT HUMERUS REASON FOR EXAM: Female, 60 years old. Injury TECHNIQUE: 3 view(s) of the humerus. COMPARISON: None. FINDINGS: Normal visualized humerus. There is no demonstrated fracture or osseous destructive process. There is no demonstrated soft tissue abnormality. RAD/Humerus min 2 Views IMPRESSION: Normal x-ray examination of the humerus. Electronically Signed: Jose Rafael Titus MD at 21:05 EDT Tel , Service support ,
--- NOTE | 2020-12-08 20:05 | RAD_ITS ---
STUDY: X-RAY - LEFT SHOULDER REASON FOR EXAM: Female, 60 years old. Injury TECHNIQUE: 4 view(s) of the shoulder. COMPARISON: None. FINDINGS: Normal glenohumeral articulation. There is degenerative arthrosis of the acromioclavicular joint without inferior osseous spur formation. Normal acromion. Normal humeral head and visualized proximal humerus. The soft tissue structures are unremarkable. Normal visualized pulmonary apex. RAD/Shoulder min 2 Views IMPRESSION: Intact shoulder. Electronically Signed: Jose Rafael Titus MD at 21:08 EDT Tel , Service support ,
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
[2020-12-08 21:35] VITALS: BP 141/88; PULSE 75
== END 2020-12-08 21:36 | disposition home or self-care (01) ==
PROVIDERS: Emergency Provider Emergency Medicine
DX: S46.912A Strain of unspecified muscle, fascia and tendon at shoulder and upper arm level, left arm, initial encounter (principal); E11.9 Type 2 diabetes mellitus without complications; I10 Essential (primary) hypertension; K21.9 Gastro-esophageal reflux disease without esophagitis; Z79.4 Long term (current) use of insulin; Z79.82 Long term (current) use of aspirin; Z87.891 Personal history of nicotine dependence; V89.2XXA Person injured in unspecified motor-vehicle accident, traffic, initial encounter; Y92.410 Unspecified street and highway as the place of occurrence of the external cause
CPT/HCPCS: 73030; 73060; 99282

== ENCOUNTER 2021-01-31 14:03 | Observation (INO) | payer MEDICARE, OTHER, SELFPAY ==
[2021-01-31 14:04] VITALS: BP 146/100; PULSE 70; RESP 16; TEMP 36.7; O2SAT 93; BMI 33.8
--- NOTE | 2021-01-31 14:56 | EKG12_ITS ---
Test Reason : FALL Blood Pressure : / mmHG Vent. Rate : 066 BPM Atrial Rate : 468 BPM P-R Int : 166 ms QRS Dur : 098 ms QT Int : 396 ms P-R-T Axes : 039 -50 -12 degrees QTc Int : 415 ms atrial fibrillation Left anterior fascicular block Nonspecific ST and T wave abnormality Abnormal ECG Confirmed by ALLYSON DEUTSCH, LETTY ([id number]), design editor MENDY BOYD ([id number]) on 02/03/2021 9:15:18 AM Referred By: WALE Confirmed By:LETTY VALADEZ MD
--- NOTE | 2021-01-31 14:57 | ED.VIS.FALL ---
HPI HPI - Fall History of Present Illness Chief Complaint: Fall Informant: patient Occured/Mechanism Occurred: Today and Yesterday Associated Symptoms Associated Symptoms: Positive for Weakness; Negative for Parasthesias, Loss of function, Inability to ambulate, Loss of consciousness and Amnesia Narrative Narrative: 60-year-old female history of diabetes chronic back pain. Says she has been shaky and weak the last couple days at home. She fell getting in the bed on and again today. Increasing sleep decreasing energy. Said she had a similar event in October she was admitted to hospital for UTI. She denies any nausea, vomiting or diarrhea. She denies any fever or chills. She denies any cough or shortness of breath. No chest or abdominal pain. Prior similar symptoms: Yes Recent Illness/Hospitalization: No PFSH PFSH Medical History Abnormal EKG REINALDO (acute kidney injury) Arthritis Atypical chest pain Chronic back pain COPD (chronic obstructive pulmonary disease) Depression with anxiety Diabetes mellitus type 2 in obese Essential hypertension Fracture of right wrist GERD (gastroesophageal reflux disease) History of back problems Left anterior fascicular block (LAFB) Nephrolithiasis Obesity (BMI 30.0-34.9) Occasional tremors Tobacco use Home Medications multivitamin with folic acid 1 tab PO DAILY 06/13/13 [History Last Taken 02/23/18 08:00] pravastatin 80 mg PO QHS 06/13/13 [History Last Taken 02/23/18 20:00] dexlansoprazole 60 mg capsule,biphase delayed release 60 mg PO QHS 10/30/19 [History Last Taken Unknown] metformin 1,000 mg PO BID 11/10/19 [History Last Taken 11/17/19 06:30 1000 MG] cetirizine 10 mg tablet 10 mg PO DAILY PRN 04/20/20 [History Last Taken Unknown] duloxetine 60 mg capsule,delayed release 60 mg PO DAILY 04/20/20 [History Last Taken Unknown] losartan 25 mg tablet 25 mg PO DAILY 04/20/20 [History Last Taken Unknown] polyethylene glycol 3350 17 gram oral powder packet 17 g PO .3xweek ea 04/20/20 [History Last Taken Unknown] zolpidem 10 mg tablet 10 mg PO QHS PRN 04/20/20 [History Last Taken Unknown] aspirin 81 mg tablet,delayed release 81 mg PO DAILY 05/06/20 [History Last Taken Unknown] famotidine 20 mg tablet 20 mg PO BID 05/06/20 [History Last Taken Unknown] insulin glargine 100 unit/mL subcutaneous solution 40 unit SC QHS ml 05/06/20 [History Last Taken Unknown] meloxicam 7.5 mg tablet 7.5 ea PO BID 05/06/20 [History Last Taken Unknown] oxycodone-acetaminophen 5 mg-325 mg tablet 1 tab PO TID PRN tablet 05/06/20 [History Last Taken Unknown] pregabalin 100 mg capsule 100 mg PO TID cap 05/06/20 [History Last Taken Unknown] ascorbic acid (vitamin C) [Vitamin C] 500 mg PO DAILY 01/31/21 [History Last Taken Unknown] cholecalciferol (vitamin D3) [Vitamin D3] 125 mcg PO DAILY 01/31/21 [History Last Taken Unknown] sennosides [Senna-Ex] 15 mg PO BID PRN 01/31/21 [History Last Taken Unknown] tizanidine 4 mg PO Q8H PRN 01/31/21 [History Last Taken Unknown] lchvygz-gdrs-xwviw-oreg-capryl cap PO 01/31/21 [History Last Taken Unknown] vitamin B complex 1 cap PO DAILY 01/31/21 [History Last Taken Unknown] Allergy/AdvReac Type Severity Reaction Status Date / Time No Known Allergies Allergy Verified 01/31/21 14:06 Family History Mother Arthritis Diabetes Heart disease Hypertension High cholesterol Sister Asthma Arthritis Diabetes Grandmother Colon cancer Aunt Lupus Daughter Seizures Sister Diabetes Surgical History History of History of cholecystectomy History of discectomy History of fusion of cervical spine History of hysterectomy history right shoulder surgery Social History household members: spouse Smoking Status: Former smoker how long ago did patient quit smokin year ago alcohol intake: never substance use type: does not use caffeine: Yes Type: carbonated beverages Number of servings: 1 ROS ROS ED ROS Narrative Generalized weakness. Constitutional Constitutional ED: Denies chills, fever(s) or subjective Eyes Eyes: Denies change in vision ENT ENT ED: Denies ear pain, rhinorrhea or sore throat Cardiovascular Cardiovascular: Denies chest pain or palpitations Respiratory/Chest Respiratory/Chest: Denies cough, dyspnea or sputum Gastrointestinal Gastrointestinal: Denies abdominal pain, constipation, diarrhea, nausea or vomiting Genitourinary Genitourinary ED: Denies dysuria Musculoskeletal Musculoskeletal: Denies myalgias Integumentary Denies rash Neurologic Neurologic: Denies headache(s) Psychiatric Psychiatric: Denies depression Endocrine Endocrinology: Denies polyuria Hematologic/Lymphatic Hematologic/Lymphatic: Denies easy bruising Allergic/Immunologic Allergic/Immunologic ED: Denies urticaria EXAM Physical Exam Narrative Exam Narrative: 60-year-old female no acute distress vital signs are stable and afebrile. She is lying in bed. HEENT exam unremarkable atraumatic. Pupils round reactive to light. Moist mucous membranes. Neck nontender no lymphadenopathy. Lungs clear to auscultation bilaterally. Heart regular rhythm no murmur. Chest were nontender. Abdomen obese soft nontender normal bowel sounds no peritoneal signs. Pelvic girdle intact. Has full flexion and extension of both hips knees ankles and feet. Dorsi plantarflexion intact. Are nontender no deformity left upper extremity is nontender. Right upper extremity has a bruise on her proximal forearm but is really not tender she has full flexion-extension at the shoulder elbow and wrist. Normal steward/stewardess room strength in the right hand. Neurologically she is awake and alert with no focal motor deficits. Const Vital Signs: 01/31/21 14:04 01/31/21 14:08 01/31/21 18:07 Temperature 98.0 F Temperature Source Temporal Pulse Rate 70 71 Respiratory Rate 16 18 Respiratory Effort Normal Respiratory Depth Normal Respiratory Pattern Normal Blood Pressure 146/100 H 93/70 Blood Pressure Mean 115 77 Pulse Ox 93 92 Oxygen Delivery Method Room Air Room Air 01/31/21 19:28 Temperature 98.1 F Temperature Source Temporal Pulse Rate 73 Respiratory Rate 18 Respiratory Effort Respiratory Depth Respiratory Pattern Blood Pressure 121/57 H Blood Pressure Mean 78 Pulse Ox 96 Oxygen Delivery Method Room Air Positive well nourished, well developed and obese; Negative for cachectic, contractures or unkempt General Appearance ED: well developed and NAD; Negative for unkempt, cachectic or contractures Nutritional Appearance: obese; Negative for cachectic HEENT Reports normocephalic atraumatic; Negative for trauma or tenderness Eyes PERRL and EOMs intact bilaterally General Eye ED: Negative for pale conjunctiva or scleral icterus Neck full ROM, no lymphadenopathy and supple General: Negative for tenderness Chest Wall inspection of chest normal and palpation of chest normal Resp normal respiratory effort, no retractions and clear to auscultation bilaterally Auscultation: Negative for rales, rhonchi or wheezes Cardio regular rate, regular rhythm, S1 normal heart sound, S2 normal heart sound and no murmurs Rate: Negative for bradycardia or tachycardic Rhythm: Negative for abnormal rhythm GI non-tender, non-distended and no masses Auscultation: normoactive bowel sounds Palpation: soft; Negative for guarding or rebound tenderness present Back/Spine no CVA tenderness General Back: Negative for CVA tenderness Cervical Spine: Negative for cervical spine tenderness Thoracic Spine / Upper Back: Negative for thoracic spinal tenderness Lumbar Spine / Lower Back: Negative for lumbar spinal tenderness Extremity normal to inspection, full ROM, normal capillary refill, no joint enlargement, no clubbing, cyanosis or edema, no calf tenderness and no pedal edema Extremity Narrative: Contusion right forearm but no bony tenderness or deformity. Normal range of motion. Neuro oriented x3, moves all extremities and no focal motor deficits Sensorium / Orientation: alert, oriented to person, oriented to place and oriented to time; Negative for orientation impaired, confused, lethargic or stuporous Motor Exam: strength 5/5 throughout Psych mental status grossly normal and thought process normal Appearance: Negative for unkempt Attitude: No agitated Mood & Affect: Negative for depressed or tearful Skin Lesions: no lesions and No lesion noted Rashes: no rashes and rashes noted Trauma: Negative for abrasion, laceration or puncture MDM MDM MDM Narrative Medical decision making narrative: 60 female with generalized weakness has had falls both yesterday and today. Had a similar event several months ago secondary to UTI. Screening labs and urinalysis are being obtained. Repeat exam patient is doing well at 7 PM. She will be started on IV Rocephin and Zithromax for her reported pneumonia. I did send a Covid test but clinically this does not come across as Covid. I have the hospitalist on page for admission. Lab Data Attestation: I reviewed the patient's lab results. Lab results narrative: CBC is elevated at 22.5. Hemoglobin 12.7. Platelets 168. Electrolytes show potassium of 6.0 gap of 7 BUN of 52 creatinine 2.55 which are elevated obviously. Liver enzymes are slightly elevated. BUN and creatinine are consistent with acute kidney injury and acute dehydration. She was given a liter of fluids will be given a second. Urine shows 5-10 white cells no reds no bacteria and no nitrates. Bladder scan was done due to history of urinary retention and it was only 78. Labs: Laboratory Results - last 24 hr 01/31/21 01/31/21 01/31/21 15:18 15:18 15:18 WBC 22.5 H RBC 3.78 L Hgb 12.7 Hct 39.5 MCV 104.5 H MCH 33.6 H MCHC 32.2 RDW Std Deviation 57.7 H RDW Coeff of Autumn 14.9 H Plt Count 168 MPV 10.7 Immature Gran % (Auto) 0.700 Neut % (Auto) 76.7 H Lymph % (Auto) 16.3 L Will % (Auto) 5.2 Eos % (Auto) 0.7 Baso % (Auto) 0.4 Absolute Neuts (auto) 17.3 H Absolute Lymphs (auto) 3.68 Nucleated RBC % 0 Sodium 138 Potassium 6.0 H* Chloride 106 Carbon Dioxide 25.0 Anion Gap 7 BUN 52 H Creatinine 2.55 H Estim Creat Clear Calc 17.26 Est GFR (MDRD) Af Amer 25 L Est GFR (MDRD) Non-Af 20 L BUN/Creatinine Ratio 20.4 H Glucose 132 H Calcium 10.1 Total Bilirubin 0.60 AST 75 H ALT 57 H Alkaline Phosphatase 37 L Total Protein 7.3 Albumin 2.8 L Globulin 4.5 H Albumin/Globulin Ratio 0.6 L Urine Color Rosita Urine Clarity Clear Urine pH 5.0 Ur Specific Jacobson 1.025 Urine Protein 30 H Urine Glucose (UA) Normal Urine Ketones 5 H Urine Occult Blood Negative Urine Nitrite Negative Urine Bilirubin 1 H Urine Urobilinogen Normal Ur Leukocyte Esterase 500 H Urine RBC 0 SEEN Urine WBC 5-10 SEEN Ur Squamous Epith Cells 0-5 SEEN Urine Bacteria 0 SEEN Hyaline Casts 0-5 SEEN Urine Mucus 0 SEEN Radiography Diagnostic Testing: Clinical Impression(s) from Imaging Studies Chest X-Ray 01/31/21 15:30 IMPRESSION: Right more than left basilar infiltrate suggesting pneumonia, new. Electronically Signed: Dale Rios MD (Brooks) at 15:43 EST , Service support , Chest x-ray single portable view shows what looks like a right lower lobe infiltrate cannot rule out left. Interpreted by myself and the radiologist. Rhythm Strip Rhythm Strip: Sinus Rhythm Rate: 66 Ectopy: None EKG Initial EKG: Attestation: I personally reviewed and interpreted this EKG as follows: Interpretation: Sinus Rhythm and No Acute Injury Pattern Comments: Sinus rhythm rate of 66 no acute signs of PR or ischemia. Prior EKG tracings: not available for review Discharge Plan Dx/Rx/DC Orders Clinical Impression: Fall, Leukocytosis, Pneumonia, Acute kidney injury, Acute dehydration Disposition Disposition: Acute Care [facility]
--- NOTE | 2021-01-31 15:08 | EKG12_ITS ---
Test Reason : FALL Blood Pressure : / mmHG Vent. Rate : 066 BPM Atrial Rate : 234 BPM P-R Int : 164 ms QRS Dur : 096 ms QT Int : 404 ms P-R-T Axes : 010 -51 -08 degrees QTc Int : 423 ms Sinus vs Ectopic Atrial Rhythm Left anterior fascicular block Nonspecific ST and T wave abnormality Poor R wave progression Abnormal ECG Confirmed by GUILLERMINA DEUTSCH, PADMINI ([id number]), image editor AMAURY LENNON ([id number]) on 02/17/2021 8:57:00 AM Referred By: WALE Confirmed By:PADMINI SARMIENTO MD
--- NOTE | 2021-01-31 15:30 | RAD_ITS ---
STUDY: X-RAY CHEST REASON FOR EXAM: Female, 60 years old. weakness TECHNIQUE: AP COMPARISON: 09/03/2020 FINDINGS: Cervical fusion hardware of the lower cervical spine. Ill-defined airspace disease in the right more than left lung base new since the prior study. There is no demonstrated pleural abnormality. Normal size heart. Normal mediastinum and nathalie. Normal visualized pulmonary arteries. Normal visualized aortic arch and descending thoracic aorta. No acute bony process. There is no demonstrated abnormality of the visualized soft tissue structures of the upper abdomen. RAD/Chest 1 View (Portable) IMPRESSION: Right more than left basilar infiltrate suggesting pneumonia, new. Electronically Signed: Dale Rios MD (Brooks) at 15:43 EST , Service support ,
[2021-01-31 15:32] LABS: Bacteria 0 SEEN /hpf (None Seen); Mucous, Urine 0 SEEN /hpf (<or=2+); Red Blood Cells-Urine 0 SEEN /hpf (0-5)
[2021-01-31 15:33] LABS: Absolute Lymphocyte Count 3.68 X10^3/uL (0.83-4.51); Absolute Neutrophil Count 17.3 X10^3/uL (2.0-7.7); Basophil# 0.08 X10^3/uL; Basophil% 0.4 % (0-1); Eosinophil# 0.16 X10^3/uL; Eosinophils% 0.7 % (0-5); Hematocrit 39.5 % (37-47); Hemoglobin 12.7 g/dL (12.0-15.0); Lymphocyte # 3.68 X10^3/ul (0.83-4.51); Lymphocyte % 16.3 % (19-41); Mean Corp Hgb Conc 32.2 g/dL (32-36); Mean Corpuscular Hgb 33.6 pg (27.0-32.0); Mean Corpuscular Volume 104.5 fL (81-99); Mean Platelet Vol. 10.7 fl (6.2-12.0); Monocyte# 1.18 X10^3/uL; Monocyte% 5.2 % (0-10); NRBC Flagged by Analyzer 0 % (0-5); Neutrophil # 17.29 X10^3/uL (2.7-7.7); Neutrophil % 76.7 % (47-70); Platelet Count 168 K/mm3 (150-450); RBC Distribution Width CV 14.9 % (11.6-14.6); RBC Distribution Width SD 57.7 fl (35.1-43.9); Red Blood Count 3.78 M/mm3 (4.2-5.4); White Blood Count 22.5 K/mm3 (4.4-11.0)
[2021-01-31 15:39] LABS: Color, Urine Amber (Yellow); Glucose, Dipstick Normal (Normal); Ketone-Dipstick 5 mg/dl (Negative); Leukocyte Esterase-Dipstick 500 /ul (Negative); Nitrite-Dipstick Negative (Negative); Occult Blood-Urine Negative /ul (Negative); Protein-Dipstick 30 mg/dl (Negative); Specific Gravity, Urine 1.025 (1.002-1.030); Urine Clarity Clear (Clear); Urine Urobilinogen Normal (Normal)
[2021-01-31 15:45] LABS: Urine Bilirubin Dipstick 1 mg/dL (Negative)
[2021-01-31 15:52] LABS: Hyaline Cast 0-5 SEEN /lpf (0-5); Squamous Epithelial Cells - UA 0-5 SEEN /hpf (5-10); White Blood Cells 5-10 SEEN /hpf (0-5)
[2021-01-31 16:08] LABS: ALB/GLOB Ratio 0.6 RATIO (0.9-2.4); AST(SGOT) 75 U/L (15-37); Alanine Aminotransfer ALT/SGPT 57 U/L (13-56); Albumin, Serum 2.8 g/dL (3.2-5.0); Alkaline Phosphatase 37 U/L (45-117); Anion Gap 7 (5-15); BUN 52 mg/dL (7-18); BUN/Creat Ratio 20.4 RATIO (10-20); Calcium,Total 10.1 mg/dL (8.5-10.1); Chloride 106 mmol/L (98-107); Creatinine, Serum 2.55 mg/dL (0.55-1.02); EST Glomerular Filtration Rate 20 mL/min (>60); Est Glom Filt Rate - Afr Amer 25 mL/min (>60); Estimated Creatinine Clearance 17.26 ml/min; Globulin 4.5 g/dL (2.2-4.2); Glucose 132 mg/dL (74-106); Protein, Total 7.3 g/dL (6.4-8.2); Sodium Level 138 mmol/L (136-145)
[2021-01-31] MEDS: 0.9% Normal Saline 1,000 ML 1000 ML IV (16:11)
[2021-01-31 18:07] VITALS: BP 93/70; PULSE 71; RESP 18; O2SAT 92
--- NOTE | 2021-01-31 18:56 | PCM.HP.STD ---
HPI - General General Date of Admission: 01/31/21 Date of Service: 01/31/21 Chief Complaint: Fall, weakness, cough, low grade T, chills, nausea, occasional emesis, loose stool x 1. HPI Narrative The patient is a 60 y/o F w/ PMHx: Chronic COPD, Anxiety and Depression, Diabetes mellitus type II, Known Tremors with prior admission for general weakness/paresthesias/tremors/myoclonus with MRI of the brain as well as cervical spine without acute finding with recommended follow-up outpatient with neurology and spine given surgery prior, GERD, HTN, HLD, Obesity, Chronic cervical back pain who presents to the [facility] ED on 01/31/21 with history of onset of fall the day prior and on day of presentation with generalized weakness and reported shakiness over the 3-4 days with difficulty getting in and out of bed with increasing fatigue and lethargy similar to her prior evaluation 10/26/20 with reported low-grade temperatures, chills, nausea, emesis, loose stool x 1 as well as nonproductive cough, prompting re-evaluation. Patient has had StepOut vaccination series x2 and she notes that she had a booster on 01/27/2021. Work-up in the ED include T 98, heart rate 70, BP initially 146/100 with most recent repeat 93/70, respiratory rate 16, 92 to 93% on room air, CBC with WBC 22.5, hemoglobin 12.7, platelet 168 with left shift, CMP with potassium 6.0, BUN/creatinine 52/2.55, glucose 132, total bilirubin 0.6, AST/ALT 75/57, alk phos 30, urinalysis with specific gravity 1.025, negative nitrite, urine leukocyte esterase 500, urine WC is 5-10 with no urine bacteria, chest x-ray with right more than left basilar infiltrate suggestive of pneumonia new from prior. In the ED patient ministered normal saline bolus 2 L, Rocephin and azithromycin. [facility] Medical History Abnormal EKG REINALDO (acute kidney injury) Arthritis Atypical chest pain Chronic back pain COPD (chronic obstructive pulmonary disease) Depression with anxiety Diabetes mellitus type 2 in obese Essential hypertension Fracture of right wrist GERD (gastroesophageal reflux disease) History of back problems Left anterior fascicular block (LAFB) Nephrolithiasis Obesity (BMI 30.0-34.9) Occasional tremors Tobacco use Home Medications multivitamin with folic acid 1 tab PO DAILY 06/13/13 [History Last Taken 02/23/18 08:00] pravastatin 80 mg PO QHS 06/13/13 [History Last Taken 02/23/18 20:00] dexlansoprazole 60 mg capsule,biphase delayed release 60 mg PO QHS 10/30/19 [History Last Taken Unknown] metformin 1,000 mg PO BID 11/10/19 [History Last Taken 11/17/19 06:30 1000 MG] cetirizine 10 mg tablet 10 mg PO DAILY PRN 04/20/20 [History Last Taken Unknown] duloxetine 60 mg capsule,delayed release 60 mg PO DAILY 04/20/20 [History Last Taken Unknown] losartan 25 mg tablet 25 mg PO DAILY 04/20/20 [History Last Taken Unknown] polyethylene glycol 3350 17 gram oral powder packet 17 g PO .3xweek ea 04/20/20 [History Last Taken Unknown] zolpidem 10 mg tablet 10 mg PO QHS PRN 04/20/20 [History Last Taken Unknown] aspirin 81 mg tablet,delayed release 81 mg PO DAILY 05/06/20 [History Last Taken Unknown] famotidine 20 mg tablet 20 mg PO BID 05/06/20 [History Last Taken Unknown] insulin glargine 100 unit/mL subcutaneous solution 40 unit SC QHS ml 05/06/20 [History Last Taken Unknown] meloxicam 7.5 mg tablet 7.5 ea PO BID 05/06/20 [History Last Taken Unknown] oxycodone-acetaminophen 5 mg-325 mg tablet 1 tab PO TID PRN tablet 05/06/20 [History Last Taken Unknown] pregabalin 100 mg capsule 100 mg PO TID cap 05/06/20 [History Last Taken Unknown] ascorbic acid (vitamin C) [Vitamin C] 500 mg PO DAILY 01/31/21 [History Last Taken Unknown] cholecalciferol (vitamin D3) [Vitamin D3] 125 mcg PO DAILY 01/31/21 [History Last Taken Unknown] sennosides [Senna-Ex] 15 mg PO BID PRN 01/31/21 [History Last Taken Unknown] tizanidine 4 mg PO Q8H PRN 01/31/21 [History Last Taken Unknown] dyuugoq-umyx-maxqw-oreg-capryl cap PO 01/31/21 [History Last Taken Unknown] vitamin B complex 1 cap PO DAILY 01/31/21 [History Last Taken Unknown] Allergy/AdvReac Type Severity Reaction Status Date / Time No Known Allergies Allergy Verified 01/31/21 14:06 Family History Mother Arthritis Diabetes Heart disease Hypertension High cholesterol Sister Asthma Arthritis Diabetes Grandmother Colon cancer Aunt Lupus Daughter Seizures Sister Diabetes Surgical History History of History of cholecystectomy History of discectomy History of fusion of cervical spine History of hysterectomy history right shoulder surgery Social History household members: spouse Smoking Status: Former smoker how long ago did patient quit smokin year ago alcohol intake: never substance use type: does not use caffeine: Yes Type: carbonated beverages Number of servings: 1 ROS ROS Narrative Admission Review of Systems: CONSTITUTIONAL: No weight loss, + fever, chills, weakness or fatigue. HEENT: Eyes: No visual loss, blurred vision, double vision or yellow sclerae. Ears, Nose, Throat: No hearing loss, sneezing, congestion, runny nose or sore throat. SKIN: No rash or itching, lesions, wounds. CARDIOVASCULAR: No chest pain, chest pressure or chest discomfort, palpitations, edema, orthopnea, syncopal events. RESPIRATORY:+ shortness of breath, cough without marked sputum, No wheezing, hemoptysis. GASTROINTESTINAL: + anorexia, nausea, vomiting,diarrhea, abdominal pain, No melena, BRBPR. GENITOURINARY: No dysuria, frequency, urgency or retention. NEUROLOGICAL: + LH, dizziness. No headache, syncope, paralysis, ataxia, numbness or tingling in the extremities, focal weakness, change in bowel or bladder control, seizure. MUSCULOSKELETAL: + muscle, back pain, joint pain or stiffness. HEMATOLOGIC: No anemia, bleeding or bruising. LYMPHATICS: No enlarged nodes. No history of splenectomy. PSYCHIATRIC: No history of depression or anxiety. ENDOCRINOLOGIC: No reports of sweating, cold or heat intolerance. No polyuria or polydipsia. ALLERGIES: No history of asthma, hives, eczema or rhinitis. Vital Signs Vital Signs Vital Signs: 01/31/21 14:04 12/27/21 14:08 01/31/21 18:07 Temperature 98.0 F Temperature Source Temporal Pulse Rate 70 71 Respiratory Rate 16 18 Respiratory Effort Normal Respiratory Depth Normal Respiratory Pattern Normal Blood Pressure 146/100 H 93/70 Blood Pressure Mean 115 77 Pulse Ox 93 92 Oxygen Delivery Method Room Air Room Air Weight Weight: 179 lb Body Mass Index (BMI) 33.8 Physical Exam Narrative Physical Examination: General: Awake, alert, oriented x 3 and cooperative, seated upright in the ED bed, fatigued and ill appearing, no evidence of respiratory distress. Skin: Normal color, normal turgor, no icterus, no cyanosis. HEENT: AT/NC, EOMI, PERRLA, dry MM, no carotid bruits or JVD noted. Lungs: Diminished, > BL bases, moderate effort, no evidence of distress, no rales, ronchi or wheezing. Heart: Regular rate and rhythm; no gallop, rub audible. Abdomen: Soft, obese, mild generalized discomfort which is chronic, no obvious distention, mildly distant hyperactive bowel sounds, no obvious HSM. Extremities: No cyanosis, clubbing, or edema. Neurological: Patient awake, alert, oriented x 3, cognitive function intact; pupils equally reactive to light and accommodation, cranial nerves II-XII grossly normal, moving all 4 extremities, no focal deficits, strength moderately to severely global decrease secondary to acute presentation. Psychiatric: Affect appears fatigued, ill-appearing, no acute evidence of depressive or anxiety feelings. Results Lab / Micro Data Result Diagrams: 01/31/21 15:18 01/31/21 15:18 Labs: Laboratory Results - last 24 hr 01/31/21 15:18: WBC 22.5 H, RBC 3.78 L, Hgb 12.7, Hct 39.5, MCV 104.5 H, MCH 33.6 H, MCHC 32.2, RDW Std Deviation 57.7 H, RDW Coeff of Autumn 14.9 H, Plt Count 168, MPV 10.7, Immature Gran % (Auto) 0.700, Neut % (Auto) 76.7 H, Lymph % (Auto) 16.3 L, [place] % (Auto) 5.2, Eos % (Auto) 0.7, Baso % (Auto) 0.4, Absolute Neuts (auto) 17.3 H, Absolute Lymphs (auto) 3.68, Nucleated RBC % 0 01/31/21 15:18: Sodium 138, Potassium 6.0 H*, Chloride 106, Carbon Dioxide 25.0, Anion Gap 7, BUN 52 H, Creatinine 2.55 H, Estim Creat Clear Calc 17.26, Est GFR (MDRD) Af Amer 25 L, Est GFR (MDRD) Non-Af 20 L, BUN/Creatinine Ratio 20.4 H, Glucose 132 H, Calcium 10.1, Total Bilirubin 0.60, AST 75 H, ALT 57 H, Alkaline Phosphatase 37 L, Total Protein 7.3, Albumin 2.8 L, Globulin 4.5 H, Albumin/Globulin Ratio 0.6 L 01/31/21 15:18: Urine Color Rosita, Urine Clarity Clear, Urine pH 5.0, Ur Specific [place] 1.025, Urine Protein 30 H, Urine Glucose (UA) Normal, Urine Ketones 5 H, Urine Occult Blood Negative, Urine Nitrite Negative, Urine Bilirubin 1 H, Urine Urobilinogen Normal, Ur Leukocyte Esterase 500 H, Urine RBC 0 SEEN, Urine WBC 5-10 SEEN, Ur Squamous Epith Cells 0-5 SEEN, Urine Bacteria 0 SEEN, Hyaline Casts 0-5 SEEN, Urine Mucus 0 SEEN Rhythm Strip Rhythm Strip: Sinus Rhythm Rate: 66 Ectopy: None Radiology Impression Chest X-Ray 01/31/21 15:30 IMPRESSION: Right more than left basilar infiltrate suggesting pneumonia, new. Electronically Signed: Dale Rios MD ([place]) at 15:43 EST , Service support , Assessment & Plan Assessment/Plan (1) Pneumonia: QUALIFIERS: Pneumonia type: due to unspecified organism Laterality: bilateral Lung location: unspecified part of lung Qualified Code(s): J18.9 - Pneumonia, unspecified organism (2) Acute kidney injury: PLAN: The patient is a 60 y/o F w/ PMHx: Chronic COPD, Anxiety and Depression, Diabetes mellitus type II, Known Tremors with prior admission for general weakness/paresthesias/tremors/myoclonus with MRI of the brain as well as cervical spine without acute finding with recommended follow-up outpatient with neurology and spine given surgery prior, GERD, HTN, HLD, Obesity, Chronic cervical back pain who presents to the [facility] ED on 01/31/21 with history of onset of fall the day prior and on day of presentation with generalized weakness and reported shakiness over the 3-4 days with difficulty getting in and out of bed with increasing fatigue and lethargy similar to her prior evaluation 10/26/20 with reported low-grade temperatures, chills, nausea, emesis, loose stool x 1 as well as nonproductive cough, prompting re-evaluation. #1. Fatigue, malaise with frequent falls, adult failure to thrive, multifactorial secondary to primarily Acute Bilateral Pneumonia with mild hypoxia, Unclear organism: CXR in the ED w/ BL PNA. Will admit to MS telemetry, maintain on oxygen with wean as tolerated to room air, continue ATC duonebs, PRN albuterol, maintained on IV Rocephin and Azithromycin, HOB, IS parameters w/ pending sputum cultures, respiratory viral panel and urine antigens. Pending COVID testing per ED, continue treatment as noted, maintain on fall precautions, continue hydration as noted, plan repeat labs this evening and in a.m., will obtain PT/OT/case management consultations for discharge planning. #2. Acute kidney injury: Secondary to likely hypovolemia. Patient with prior similar admission with retention at that time with Madison placement necessary. Admission BUN/Cr 52/2.55, prior baseline creatinine noted to be 0.9-1.1. Will assure no urinary retention with Madison placement if appropriate, continue to aggressively hydrate, hold nephrotoxic medications and repeat chemistry in AM. If no improvement would plan FeNa and renal ultrasound assessment. #3. Hyperkalemia: Admission potassium 6.0 in the setting of acute kidney injury as noted, in the ED patient only administered normal saline 1 L bolus x1, will give continued aggressive IV fluids as noted above, will plan repeat potassium in 2 hours and if remains elevated will necessitate further regimen #4. Elevated LFTs/transaminitis: Admission AST/ALT 75/57, alk phos 37, normal total bilirubin 0.6, potentially related with acute presentation, continue aggressive hydration, repeat CMP in a.m. temporarily holding patient statin therapy. #5. Diabetes mellitus type II with peripheral neuropathy: Hold oral home regimen, continue home insulin regimen, ADA diet, accu checks w/ ISS, continue patient home pregabalin regimen however if renal function worsens further would require alteration. #6. Chronic pain syndrome, chronic back pain, cervical: Give patient severity of pain as discussed with her we will continue her short acting regimen however if renal function worsens may necessitate alteration. Will change patient on renally dosed for current creatinine clearance patient pregabalin as well as tizanidine. #7. Anxiety and depression: We will continue patient home duloxetine regimen however if renal functions worsens will need to hold. #8. Chronic COPD: Not on chronic regimen, as needed albuterol, head of bed and I-S. #9. Chronic constipation: We will continue bowel regimen. #10. Hypertension: Holding patient home losartan, continue propranolol, as needed hydralazine. #11. Obesity: Weight loss and lifestyle changes encouraged. #12. Hyperlipidemia: Temporarily holding statin regimen given mild LFT elevations, resume once appropriate. #13. DVT prophylaxis: SCDs, heparin. #14. CODE STATUS: Full code. Charges/Coding Visit Charges Inpatient E&M: 25770 Init Hosp L3
[2021-01-31] MEDS: 0.9% Normal Saline 1,000 ML 999 ML IV (19:07)
[2021-01-31] MEDS: Ceftriaxone 1 GM/50 ML BAG IV (19:27)
[2021-01-31 19:28] VITALS: BP 121/57; PULSE 73; RESP 18; TEMP 36.7; O2SAT 96
[2021-01-31 21:26] VITALS: RESP 20; BMI 36.1
--- NOTE | 2021-01-31 21:26 | PCS.PANDOC ---
PANDEMIC DOCUMENTATION INITIATED: Date: 09/20/2020 Time: 190
[2021-01-31 21:40] VITALS: BP 110/59; PULSE 79; RESP 20; TEMP 36.6; O2SAT 96
[2021-01-31] MEDS: Insulin Lispro 100 UNIT/ML INSULN.PEN SC (22:31)
[2021-01-31] MEDS: Heparin Injection (Vial) 5,000 UNIT/ML VIAL 5000 UNIT SC (22:34)
[2021-01-31] MEDS: 0.9% Normal Saline 1,000 ML 150 ML IV (22:36)
[2021-01-31] MEDS: Pregabalin 50 MG Capsule PO (22:37)
[2021-01-31] MEDS: 0.9% Saline Lock 10 ML Syringe IV (22:37)
[2021-01-31] MEDS: oxyCODONE 5 MG Tablet PO (22:38)
[2021-01-31 22:41] LABS: Anion Gap 6 (5-15); BUN 43 mg/dL (7-18); BUN/Creat Ratio 21.9 RATIO (10-20); Calcium,Total 8.9 mg/dL (8.5-10.1); Chloride 107 mmol/L (98-107); Creatinine, Serum 1.96 mg/dL (0.55-1.02); EST Glomerular Filtration Rate 27 mL/min (>60); Est Glom Filt Rate - Afr Amer 33 mL/min (>60); Estimated Creatinine Clearance 21.38 ml/min; Glucose 233 mg/dL (74-106); Potassium 4.9 mmol/L (3.5-5.1); Sodium Level 137 mmol/L (136-145)
[2021-02-01] VITALS (16 sets, daily range): BP systolic 127–140; BP diastolic 48–82; PULSE 66–88; RESP 18–20; TEMP 36.5–37.1; O2SAT 92–98
[2021-02-01 00:11] LABS: Bedside Glucose 183 mg/dL (70-110)
[2021-02-01] MEDS: 0.9% Normal Saline 1,000 ML 150 ML IV ×4 (04:18→18:57)
[2021-02-01] MEDS: Acetaminophen 325 MG Tablet 650 MG PO ×3 (05:41→23:07)
[2021-02-01 06:45] LABS: Absolute Lymphocyte Count 2.68 X10^3/uL (0.83-4.51); Absolute Neutrophil Count 9.6 X10^3/uL (2.0-7.7); Basophil# 0.04 X10^3/uL; Basophil% 0.3 % (0-1); Eosinophil# 0.17 X10^3/uL; Eosinophils% 1.3 % (0-5); Hemoglobin 10.9 g/dL (12.0-15.0); Lymphocyte # 2.68 X10^3/ul (0.83-4.51); Lymphocyte % 20.3 % (19-41); Mean Corp Hgb Conc 32.1 g/dL (32-36); Mean Corpuscular Volume 105.9 fL (81-99); Monocyte# 0.69 X10^3/uL; Monocyte% 5.2 % (0-10); NRBC Flagged by Analyzer 0 % (0-5); Neutrophil # 9.56 X10^3/uL (2.7-7.7); Neutrophil % 72.4 % (47-70); Platelet Count 125 K/mm3 (150-450); RBC Distribution Width CV 14.8 % (11.6-14.6); RBC Distribution Width SD 58.2 fl (35.1-43.9); Red Blood Count 3.21 M/mm3 (4.2-5.4); White Blood Count 13.2 K/mm3 (4.4-11.0)
[2021-02-01 07:00] LABS: Bedside Glucose 107 mg/dL (70-110)
[2021-02-01 07:17] LABS: ALB/GLOB Ratio 0.5 RATIO (0.9-2.4); AST(SGOT) 55 U/L (15-37); Alanine Aminotransfer ALT/SGPT 48 U/L (13-56); Alkaline Phosphatase 29 U/L (45-117); Anion Gap 5 (5-15); BUN 32 mg/dL (7-18); BUN/Creat Ratio 25.2 RATIO (10-20); Calcium,Total 8.7 mg/dL (8.5-10.1); Chloride 112 mmol/L (98-107); Creatinine, Serum 1.27 mg/dL (0.55-1.02); EST Glomerular Filtration Rate 45 mL/min (>60); Est Glom Filt Rate - Afr Amer 55 mL/min (>60); Estimated Creatinine Clearance 32.99 ml/min; Globulin 4.3 g/dL (2.2-4.2); Glucose 109 mg/dL (74-106); Potassium 5.3 mmol/L (3.5-5.1); Protein, Total 6.3 g/dL (6.4-8.2); Sodium Level 137 mmol/L (136-145)
[2021-02-01] MEDS: Ipratropium/Albuterol Sulfate 3 ML AMPUL.NEB INHALATION ×3 (07:25→19:52)
--- NOTE | 2021-02-01 07:44 | PN.HOSP_ITS ---
Subjective Subjective Patient is a 60-year-old lady admitted with progressive generalized weakness with lethargy. Imaging studies obtained on admission demonstrated right more than left bibasilar infiltrate suggesting pneumonia. She was also found to have leukocytosis as well as acute kidney injury admitted to regular nursing floor fo r further management Objective Data Objective Data Vital Signs: Vital Signs Temp Pulse Resp BP Pulse Ox 97.7 F L 82 20 H 131/64 H 93 02/01/21 03:18 02/01/21 07:24 02/01/21 07:24 02/01/21 03:18 02/01/21 07:24 Oxygen Delivery Method Room Air Weight: 84 kg Body Mass Index (BMI) 36.1 Intake & Output: Intake and Output for Last 24 Hours 01/30/21 01/31/21 02/01/21 23:59 23:59 23:59 Intake Total 2305 / 2305 1040 / 1040 Balance 2305 / 2305 1040 / 1040 Lab / Micro Data Result Diagrams: 02/01/21 06:30 02/01/21 06:30 Labs: Laboratory Results - last 24 hr 01/31/21 15:18: WBC 22.5 H, RBC 3.78 L, Hgb 12.7, Hct 39.5, MCV 104.5 H, MCH 33.6 H, MCHC 32.2, RDW Std Deviation 57.7 H, RDW Coeff of Autumn 14.9 H, Plt Count 168, MPV 10.7, Immature Gran % (Auto) 0.700, Neut % (Auto) 76.7 H, Lymph % (Auto) 16.3 L, [place] % (Auto) 5.2, Eos % (Auto) 0.7, Baso % (Auto) 0.4, Absolute Neuts (auto) 17.3 H, Absolute Lymphs (auto) 3.68, Nucleated RBC % 0 01/31/21 15:18: Sodium 138, Potassium 6.0 H*, Chloride 106, Carbon Dioxide 25.0, Anion Gap 7, BUN 52 H, Creatinine 2.55 H, Estim Creat Clear Calc 17.26, Est GFR (MDRD) Af Amer 25 L, Est GFR (MDRD) Non-Af 20 L, BUN/Creatinine Ratio 20.4 H, Glucose 132 H, Calcium 10.1, Total Bilirubin 0.60, AST 75 H, ALT 57 H, Alkaline Phosphatase 37 L, Total Protein 7.3, Albumin 2.8 L, Globulin 4.5 H, Albumin/Globulin Ratio 0.6 L 01/31/21 15:18: Urine Color Rosita, Urine Clarity Clear, Urine pH 5.0, Ur Specific [place] 1.025, Urine Protein 30 H, Urine Glucose (UA) Normal, Urine Ketones 5 H, Urine Occult Blood Negative, Urine Nitrite Negative, Urine Bilirubin 1 H, Urine Urobilinogen Normal, Ur Leukocyte Esterase 500 H, Urine RBC 0 SEEN, Urine WBC 5-10 SEEN, Ur Squamous Epith Cells 0-5 SEEN, Urine Bacteria 0 SEEN, Hyaline Casts 0-5 SEEN, Urine Mucus 0 SEEN 01/31/21 21:57: Sodium 137, Potassium 4.9, Chloride 107, Carbon Dioxide 24.0, Anion Gap 6, BUN 43 H, Creatinine 1.96 H, Estim Creat Clear Calc 21.38, Est GFR (MDRD) Af Amer 33 L, Est GFR (MDRD) Non-Af 27 L, BUN/Creatinine Ratio 21.9 H, Glucose 233 H, Calcium 8.9 01/31/21 22:29: POC Glucose 183 H 02/01/21 06:30: WBC 13.2 H, RBC 3.21 L, Hgb 10.9 L, Hct 34.0 L, MCV 105.9 H, MCH 34.0 H, MCHC 32.1, RDW Std Deviation 58.2 H, RDW Coeff of Autumn 14.8 H, Plt Count 125 L, MPV 10.0, Immature Gran % (Auto) 0.500, Neut % (Auto) 72.4 H, Lymph % (Auto) 20.3, [place] % (Auto) 5.2, Eos % (Auto) 1.3, Baso % (Auto) 0.3, Absolute Neuts (auto) 9.6 H, Absolute Lymphs (auto) 2.68, Nucleated RBC % 0 02/01/21 06:30: Sodium 137, Potassium 5.3 H, Chloride 112 H, Carbon Dioxide 20.0 L, Anion Gap 5, BUN 32 H, Creatinine 1.27 H, Estim Creat Clear Calc 32.99, Est GFR (MDRD) Af Amer 55 L, Est GFR (MDRD) Non-Af 45 L, BUN/Creatinine Ratio 25.2 H , Glucose 109 H, Calcium 8.7, Total Bilirubin 0.40, AST 55 H, ALT 48, Alkaline Phosphatase 29 L, Total Protein 6.3 L, Albumin 2.0 L, Globulin 4.3 H, Albumin/Globulin Ratio 0.5 L 02/01/21 06:36: POC Glucose 107 Micro: Microbiology 01/31/21 22:20 Mucosa - Nasopharyngeal Respiratory Panel (PCR) - Final 01/31/21 21:57 Urine, Clean Catch Legionella Antigen - Final 01/31/21 21:57 Urine, Clean Catch Streptococcus pneumoniae Antigen (M - Final 01/31/21 18:56 Nasal Secretion SARS-CoV-2 Antigen (Rapid) - Final Radiography Diagnostic Testing: Radiology Impression Chest X-Ray 01/31/21 15:30 IMPRESSION: Right more than left basilar infiltrate suggesting pneumonia, new. Electronically Signed: Dale Rios MD ([place]) at 15:43 EST , Service support , Rhythm Strip Rhythm Strip: Sinus Rhythm Rate: 66 Ectopy: None Physical Exam Narrative GENERAL: cooperative HEENT: Atraumatic; EYES; Anicteric, Normal Conjunctiva NECK; supple, normal thyroid, RESPIRATORY: Diminished to auscultation CARDIOVASCULAR: Regular S1 S2, GI: soft, normoactive bowel sounds, : No Renal angle tenderness; EXTREMITIES: No edema, no clubbing, MUSCULOSKELETAL: no muscle waisting NEURO: Awake; no lateralizing signs. SKIN: No Rash PSYCH; Flat affect Assessment & Plan Assessment/Plan (1) Pneumonia: QUALIFIERS: Laterality: bilateral Lung location: unspecified part of lung Pneumonia type: due to unspecified organism Qualified Code(s): J18.9 - Pneumonia, unspecified organism (2) Acute kidney injury: PLAN: Patient is a 60-year-old lady admitted with progressive generalized weakness with lethargy. Imaging studies obtained on admission demonstrated right more than left bibasilar infiltrate suggesting pneumonia. She was also found to have leukocytosis as well as acute kidney injury admitted to regular nursing floor for further management 1. Pneumonia - Suspected to be secondary to streptococcal pneumonia, Blood and sputum cultures sent. Patient placed on Rocephin and Zithromax and placed on oxygen titrated to keep Pulse Ox greater than 90 2. Acute cystitis -Patient presented with mild pyuria with WBC count 5-10. Her current antibiotic regimen for pneumonia should cover for her cystitis 3. Acute kidney injury ?Started on IV fluid with subsequent monitoring of electrolytes ordered 4. Hyperkalemia -Secondary to above monitoring 5. Chronic pain syndrome ?Patient is on Lyrica and Cymbalta did continue 6. Diabetes mellitus type II -patient's oral hypoglycemics held. Placed on long acting insulin, Accu-Cheks a.c. and at bedtime and covered with sliding scale insulin 7. Class II obesity with BMI of 36.2 ?Weight loss advised 8. Physical deconditioning - Requested for PT OT eval and psychiatric social worker supervisor to assist with discharge planning 9. Dyslipidemia ?Patient is on pravastatin at home 10. GERD ?Patient is on PPI 11. DVT prophylaxis ?SC heparin Charges/Coding Visit Charges Inpatient E&M: 85183 Subs Hosp L3
[2021-02-01] MEDS: Aspirin E.C. 81 MG Tablet PO (08:15)
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
[2021-02-01] MEDS: Heparin Injection (Vial) 5,000 UNIT/ML VIAL 5000 UNIT SC ×2 (11:11→21:12)
[2021-02-01] MEDS: DULoxetine Hcl 60 MG Capsule PO (11:11)
[2021-02-01] MEDS: Ascorbic Acid 500 MG Tablet PO (11:11)
[2021-02-01] MEDS: Pregabalin 50 MG Capsule PO ×2 (11:14→21:13)
--- NOTE | 2021-02-01 11:46 | PCM.DC.SUM ---
Providers Date of Admission: 01/31/21 Primary Care Physician: [facility] Reason For Visit: PNA,REINALDO,HYPERKALEMIA,ELEVATED LFTS Diagnosis Discharge Diagnosis (1) Pneumonia: Status: Acute Code(s): J18.9 - Pneumonia, unspecified organism Qualifiers: Pneumonia type: due to unspecified organism Laterality: bilateral Lung location: unspecified part of lung Qualified Code(s): J18.9 - Pneumonia, unspecified organism (2) Acute kidney injury: Status: Acute Code(s): N17.9 - Acute kidney failure, unspecified Medications at Discharge Home Medications multivitamin with folic acid 1 tab PO DAILY 06/13/13 pravastatin 80 mg PO QHS 06/13/13 dexlansoprazole 60 mg capsule,biphase delayed release 60 mg PO QHS 10/30/19 metformin 1,000 mg PO BID 11/10/19 cetirizine 10 mg tablet 10 mg PO DAILY PRN 04/20/20 duloxetine 60 mg capsule,delayed release 60 mg PO DAILY 04/20/20 losartan 25 mg tablet 25 mg PO DAILY 04/20/20 polyethylene glycol 3350 17 gram oral powder packet 17 g PO .3xweek ea 04/20/20 zolpidem 10 mg tablet 10 mg PO QHS PRN 04/20/20 aspirin 81 mg tablet,delayed release 81 mg PO DAILY 05/06/20 famotidine 20 mg tablet 20 mg PO BID 05/06/20 insulin glargine 100 unit/mL subcutaneous solution 40 unit SC QHS ml 05/06/20 meloxicam 7.5 mg tablet 7.5 ea PO BID 05/06/20 oxycodone-acetaminophen 5 mg-325 mg tablet 1 tab PO TID PRN tablet 05/06/20 pregabalin 100 mg capsule 100 mg PO TID cap 05/06/20 ascorbic acid (vitamin C) [Vitamin C] 500 mg PO DAILY 01/31/21 cholecalciferol (vitamin D3) [Vitamin D3] 125 mcg PO DAILY 01/31/21 sennosides 15 mg PO BID PRN 01/31/21 tizanidine 4 mg PO Q8H PRN 01/31/21 fsmueed-ypxp-mwpnm-oreg-capryl cap PO 01/31/21 vitamin B complex 1 cap PO DAILY 01/31/21 azithromycin 500 mg PO DAILY 5 Days #5 tab 02/01/21 cefpodoxime 200 mg PO BID #10 tab 02/01/21 Weight / BMI Weight Weight: 84 kg Body Mass Index (BMI) 36.1 ABG / Lab / Microbiology Data Result Diagrams: 02/01/21 06:30 02/01/21 06:30 Laboratory: Laboratory Results - last 24 hr 01/31/21 15:18: WBC 22.5 H, RBC 3.78 L, Hgb 12.7, Hct 39.5, MCV 104.5 H, MCH 33.6 H, MCHC 32.2, RDW Std Deviation 57.7 H, RDW Coeff of Autumn 14.9 H, Plt Count 168, MPV 10.7, Immature Gran % (Auto) 0.700, Neut % (Auto) 76.7 H, Lymph % (Auto) 16.3 L, Brule % (Auto) 5.2, Eos % (Auto) 0.7, Baso % (Auto) 0.4, Absolute Neuts (auto) 17.3 H, Absolute Lymphs (auto) 3.68, Nucleated RBC % 0 01/31/21 15:18: Sodium 138, Potassium 6.0 H*, Chloride 106, Carbon Dioxide 25.0, Anion Gap 7, BUN 52 H, Creatinine 2.55 H, Estim Creat Clear Calc 17.26, Est GFR (MDRD) Af Amer 25 L, Est GFR (MDRD) Non-Af 20 L, BUN/Creatinine Ratio 20.4 H, Glucose 132 H, Calcium 10.1, Total Bilirubin 0.60, AST 75 H, ALT 57 H, Alkaline Phosphatase 37 L, Total Protein 7.3, Albumin 2.8 L, Globulin 4.5 H, Albumin/Globulin Ratio 0.6 L 01/31/21 15:18: Urine Color Rosita, Urine Clarity Clear, Urine pH 5.0, Ur Specific [place] 1.025, Urine Protein 30 H, Urine Glucose (UA) Normal, Urine Ketones 5 H, Urine Occult Blood Negative, Urine Nitrite Negative, Urine Bilirubin 1 H, Urine Urobilinogen Normal, Ur Leukocyte Esterase 500 H, Urine RBC 0 SEEN, Urine WBC 5-10 SEEN, Ur Squamous Epith Cells 0-5 SEEN, Urine Bacteria 0 SEEN, Hyaline Casts 0-5 SEEN, Urine Mucus 0 SEEN 01/31/21 21:57: Sodium 137, Potassium 4.9, Chloride 107, Carbon Dioxide 24.0, Anion Gap 6, BUN 43 H, Creatinine 1.96 H, Estim Creat Clear Calc 21.38, Est GFR (MDRD) Af Amer 33 L, Est GFR (MDRD) Non-Af 27 L, BUN/Creatinine Ratio 21.9 H, Glucose 233 H, Calcium 8.9 01/31/21 22:29: POC Glucose 183 H 02/01/21 06:30: WBC 13.2 H, RBC 3.21 L, Hgb 10.9 L, Hct 34.0 L, MCV 105.9 H, MCH 34.0 H, MCHC 32.1, RDW Std Deviation 58.2 H, RDW Coeff of Autumn 14.8 H, Plt Count 125 L, MPV 10.0, Immature Gran % (Auto) 0.500, Neut % (Auto) 72.4 H, Lymph % (Auto) 20.3, Brule % (Auto) 5.2, Eos % (Auto) 1.3, Baso % (Auto) 0.3, Absolute Neuts (auto) 9.6 H, Absolute Lymphs (auto) 2.68, Nucleated RBC % 0 02/01/21 06:30: Sodium 137, Potassium 5.3 H, Chloride 112 H, Carbon Dioxide 20.0 L, Anion Gap 5, BUN 32 H, Creatinine 1.27 H, Estim Creat Clear Calc 32.99, Est GFR (MDRD) Af Amer 55 L, Est GFR (MDRD) Non-Af 45 L, BUN/Creatinine Ratio 25.2 H, Glucose 109 H, Calcium 8.7, Total Bilirubin 0.40, AST 55 H, ALT 48, Alkaline Phosphatase 29 L, Total Protein 6.3 L, Albumin 2.0 L, Globulin 4.3 H, Albumin/Globulin Ratio 0.5 L 02/01/21 06:36: POC Glucose 107 Microbiology: Microbiology 01/31/21 22:20 Mucosa - Nasopharyngeal Respiratory Panel (PCR) - Final 01/31/21 21:57 Urine, Clean Catch Legionella Antigen - Final 01/31/21 21:57 Urine, Clean Catch Streptococcus pneumoniae Antigen (M - Final 01/31/21 18:56 Nasal Secretion SARS-CoV-2 Antigen (Rapid) - Final Radiography Diagnostic Testing: Radiology Impression Chest X-Ray 01/31/21 15:30 IMPRESSION: Right more than left basilar infiltrate suggesting pneumonia, new. Electronically Signed: Dale Rios MD (Brooks) at 15:43 EST , Service support , Discharge Plan Admission Admit Date/Time: 01/31/21 20:17 Attending Provider: Todd Parker [facility] Orders/Prescriptions Prescriptions: New azithromycin 500 mg tablet 500 mg PO DAILY 5 Days Qty: 5 RF: 0 cefpodoxime 200 mg tablet 200 mg PO BID Qty: 10 RF: 0 Continued oxycodone-acetaminophen [Percocet] 5-325 mg tablet 1 tab PO TID PRN (Reason: Pain Or Fever) RF: 0 Lantus U-100 Insulin 100 unit/mL solution 40 unit SC QHS RF: 0 pregabalin 100 mg capsule 100 mg PO TID RF: 0 meloxicam 7.5 mg tablet 7.5 ea PO BID RF: 0 aspirin [Adult Low Dose Aspirin] 81 mg tablet,delayed release (DR/EC) 81 mg PO DAILY RF: 0 cetirizine 10 mg tablet 10 mg PO DAILY PRN (Reason: Pain) RF: 0 duloxetine 60 mg capsule,delayed release(DR/EC) 60 mg PO DAILY RF: 0 losartan 25 mg tablet 25 mg PO DAILY RF: 0 polyethylene glycol 3350 [Miralax] 17 gram powder in packet 17 g PO .3xweek RF: 0 zolpidem 10 mg tablet 10 mg PO QHS PRN (Reason: Sleep) RF: 0 famotidine 20 mg tablet 20 mg PO BID RF: 0 pravastatin 80 MG tablet 80 mg PO QHS RF: 0 multivitamin with folic acid 1 TABLET tablet 1 tab PO DAILY RF: 0 dexlansoprazole 60 mg capsule,biphase delayed releas 60 mg PO QHS RF: 0 metformin 1,000 MG tablet 1,000 mg PO BID RF: 0 tizanidine 4 mg Tablet 4 mg PO Q8H PRN (Reason: .) RF: 0 ascorbic acid (vitamin C) [Vitamin C] 500 mg Tablet 500 mg PO DAILY RF: 0 sennosides 15 mg Tablet 15 mg PO BID PRN (Reason: Constipation) RF: 0 vitamin B complex Capsule 1 cap PO DAILY RF: 0 cholecalciferol (vitamin D3) [Vitamin D3] 125 mcg (5,000 unit) Tablet 125 mcg PO DAILY RF: 0 rewfdxk-tkhg-pdorv-oreg-capryl 100 mg-150 mg- 50 mg-150 mg Capsule PO RF: 0 [facility] - Charges/Coding Visit Charges Inpatient E&M: 24557 Disch Hosp
[2021-02-01 12:11] LABS: Bedside Glucose 164 mg/dL (70-110)
[2021-02-01] MEDS: Insulin Lispro 100 UNIT/ML INSULN.PEN SC ×3 (12:30→21:09)
--- NOTE | 2021-02-01 15:18 | CHAPLAIN ---
Type of Pastoral Visit _x__ Initial Visit ___ Follow-up Visit ___ On-call Visit ___ General Patient Visit ___ Spiritual Assessment ___ Family Conference ___ Bereavement ___ Rapid Response ___ Code Blue ___ Other (describe below) Pastoral Care Referral From _x__ Patient ___ Family ___ Nurse ___ Physician ___ Felt Pad Cutter ___ Entry Level Drafter ___ Other (describe below) Sacrament/Intervention _x__ Active listening ___ Anointing ___ Hindu ___ Bereavement ___ Communion ___ Cee exploration ___ ___ Life review _x__ Prayer ___ Reconciliation ___ Sacrament of Sick _x__ Supportive presence ___ Wedding ___ Other (describe below) Pastoral Comments
[2021-02-01 16:40] LABS: Bedside Glucose 157 mg/dL (70-110)
[2021-02-01] MEDS: Ceftriaxone 1 GM/50 ML BAG IV (21:03)
[2021-02-01 21:31] LABS: Bedside Glucose 153 mg/dL (70-110)
[2021-02-02] VITALS (10 sets, daily range): BP systolic 130–172; BP diastolic 73–82; PULSE 62–79; RESP 16–24; TEMP 36.5–37.3; O2SAT 94–98
[2021-02-02] MEDS: oxyCODONE 5 MG Tablet PO ×2 (00:24→10:56)
[2021-02-02] MEDS: 0.9% Normal Saline 1,000 ML 150 ML IV ×2 (00:59→08:35)
[2021-02-02] MEDS: Ipratropium/Albuterol Sulfate 3 ML AMPUL.NEB INHALATION ×2 (01:00→06:59)
[2021-02-02] MEDS: Acetaminophen 325 MG Tablet 650 MG PO (06:11)
[2021-02-02] MEDS: tiZANidine HCl 2 MG Tablet PO (06:16)
[2021-02-02] MEDS: hydrALAZINE 20 MG/ML Vial 10 MG IV (06:35)
[2021-02-02 06:46] LABS: Bedside Glucose 93 mg/dL (70-110)
--- NOTE | 2021-02-02 08:15 | NURSING ---
PER RESPITORY, AYE, PT REFUSING BREATHING TREATMENT AND TALKING ABOUT LEAVING AMA. PT COOPERATIVE WHEN THIS NURSE AND MARIO ECHOLS ASSESSED HIM. PT DID TAKE BREATHING TREATMENT AT THIS TIME.
[2021-02-02] MEDS: DULoxetine Hcl 60 MG Capsule PO (08:38)
[2021-02-02] MEDS: Ascorbic Acid 500 MG Tablet PO (08:38)
[2021-02-02] MEDS: Aspirin E.C. 81 MG Tablet PO (08:38)
[2021-02-02] MEDS: Heparin Injection (Vial) 5,000 UNIT/ML VIAL 5000 UNIT SC (08:40)
[2021-02-02] MEDS: Pregabalin 50 MG Capsule PO (08:40)
[2021-02-02] MEDS: proCHLORPERazine 10 MG/2 ML Vial 5 MG IV (08:47)
[2021-02-02] MEDS: 0.9% Saline Lock 10 ML Syringe IV (08:48)
--- NOTE | 2021-02-02 09:15 | PCM.DC ---
Discharge Instructions Diet Discharge Diet: Low fat / Low cholesterol, 1800 Calorie Control Diet and 2000 mg Sodium Diet Activity Discharge Activity: Return to Normal Activity Weight Bearing Status: Weight bearing as tolerated Dressing / Incision Call your doctor if you observe: Fever of 101 or Higher, Coldness, Increased Pain, Numbness or Tingling, Change in Color, Inability to urinate, Inability to have a bowel movement, Using more than 1 pad per hour, Shortness of breath, Dizziness, Fainting spells, Swelling in the ankles, Chest pain, Prolonged hiccupping, Increased palpitations (irregular heartbeat) and Calf discomfort Follow Up Care Test Results: Test results from this visit will be discussed in further detail at your follow-up appointment, if applicable. Discharge Plan Admission Admit Date/Time: 01/31/21 20:17 Primary Reason for Your Visit: Bilateral pneumonia Attending Provider: Dilshad Huffman [facility] Inst[facility] Additional Instructions / Restrictions: BMP in 1 week and follow with PCP for REINALDO Discharge Orders/Prescriptions Prescriptions: New amlodipine 10 mg Tablet 5 mg PO DAILY Qty: 30 RF: 0 levofloxacin 500 mg tablet 500 mg PO DAILY Qty: 5 RF: 0 Continued oxycodone-acetaminophen [Percocet] 5-325 mg tablet 1 tab PO TID PRN (Reason: Pain Or Fever) RF: 0 pregabalin 100 mg capsule 100 mg PO TID RF: 0 aspirin [Adult Low Dose Aspirin] 81 mg tablet,delayed release (DR/EC) 81 mg PO DAILY RF: 0 cetirizine 10 mg tablet 10 mg PO DAILY PRN (Reason: Pain) RF: 0 duloxetine 60 mg capsule,delayed release(DR/EC) 60 mg PO DAILY RF: 0 polyethylene glycol 3350 [Miralax] 17 gram powder in packet 17 g PO .3xweek RF: 0 famotidine 20 mg tablet 20 mg PO BID RF: 0 pravastatin 80 MG tablet 80 mg PO QHS RF: 0 multivitamin with folic acid 1 TABLET tablet 1 tab PO DAILY RF: 0 dexlansoprazole 60 mg capsule,biphase delayed releas 60 mg PO QHS RF: 0 metformin 1,000 MG tablet 1,000 mg PO BID RF: 0 ascorbic acid (vitamin C) [Vitamin C] 500 mg Tablet 500 mg PO DAILY RF: 0 sennosides 15 mg Tablet 15 mg PO BID PRN (Reason: Constipation) RF: 0 vitamin B complex Capsule 1 cap PO DAILY RF: 0 cholecalciferol (vitamin D3) [Vitamin D3] 125 mcg (5,000 unit) Tablet 125 mcg PO DAILY RF: 0 Lantus U-100 Insulin 100 unit/mL solution 40 unit SC QHS Qty: 0 RF: 0 Changed tizanidine 4 mg Tablet 2 mg PO Q8H PRN (Reason: .) Qty: 0 RF: 0 zolpidem 10 mg tablet 5 mg PO QHS PRN (Reason: Sleep) Qty: 0 RF: 0 Held losartan 25 mg tablet 25 mg PO DAILY RF: 0 Hold Instructions: Hold for 1 week with repeat BMP in 1 week until kidney function returns to normal. Follow-up PCP Discontinued meloxicam 7.5 mg tablet 7.5 ea PO BID RF: 0 euartnd-wfan-houps-oreg-capryl 100 mg-150 mg- 50 mg-150 mg Capsule PO RF: 0 Referrals / Follow Up: Constance Reyes MD [STAFF PHYSICIAN] - In 1 Week ([facility] Thorne [Primary Care Provider] - In 1 Week Disposition Disposition (needs filled in before D/C Order can be placed): Home, Self Care
--- NOTE | 2021-02-02 09:15 | PCM.DC.SUM ---
Providers Date of Admission: 01/31/21 Date of Discharge: 02/02/21 Primary Care Physician: [facility] Reason For Visit: PNA,REINALDO,HYPERKALEMIA,ELEVATED LFTS Diagnosis Discharge Diagnosis (1) Pneumonia: Status: Acute Code(s): J18.9 - Pneumonia, unspecified organism Qualifiers: Laterality: bilateral Lung location: unspecified part of lung Pneumonia type: due to unspecified organism Qualified Code(s): J18.9 - Pneumonia, unspecified organism (2) Acute kidney injury: Status: Acute Code(s): N17.9 - Acute kidney failure, unspecified Medications at Discharge Home Medications multivitamin with folic acid 1 tab PO DAILY 06/13/13 pravastatin 80 mg PO QHS 06/13/13 dexlansoprazole 60 mg capsule,biphase delayed release 60 mg PO QHS 10/30/19 metformin 1,000 mg PO BID 11/10/19 cetirizine 10 mg tablet 10 mg PO DAILY PRN 04/20/20 duloxetine 60 mg capsule,delayed release 60 mg PO DAILY 04/20/20 losartan 25 mg tablet 25 mg PO DAILY 04/20/20 polyethylene glycol 3350 17 gram oral powder packet 17 g PO .3xweek ea 04/20/20 aspirin 81 mg tablet,delayed release 81 mg PO DAILY 05/06/20 famotidine 20 mg tablet 20 mg PO BID 05/06/20 oxycodone-acetaminophen 5 mg-325 mg tablet 1 tab PO TID PRN tablet 05/06/20 pregabalin 100 mg capsule 100 mg PO TID cap 05/06/20 ascorbic acid (vitamin C) [Vitamin C] 500 mg PO DAILY 01/31/21 cholecalciferol (vitamin D3) [Vitamin D3] 125 mcg PO DAILY 01/31/21 sennosides 15 mg PO BID PRN 01/31/21 vitamin B complex 1 cap PO DAILY 01/31/21 Lantus U-100 Insulin 40 unit SC QHS #0 ml 02/02/21 amlodipine 5 mg PO DAILY #30 tab 02/02/21 levofloxacin 500 mg PO DAILY #5 tab 02/02/21 tizanidine 2 mg PO Q8H PRN #0 tab 02/02/21 zolpidem 5 mg PO QHS PRN #0 tab 02/02/21 Hospital Course Summary of Care Provided Hospital Course: Patient is a 60-year-old lady admitted with progressive generalized weakness with lethargy. Imaging studies obtained on admission demonstrated right more than left bibasilar infiltrate suggesting pneumonia. She was also found to have leukocytosis as well as acute kidney injury admitted to regular nursing floor for further management 1. Bilateral pneumonia most probably secondary Streptococcus pneumonia: Patient was started on IV Rocephin and Zithromax and oxygen to keep pulse ox more than 90%. Patient is discharged on Levaquin for 5 more days to complete a total of 7 days of antibiotic treatment. 2. Acute cystitis: UA shows 5-10 WBC. No urine culture available. On Levaquin. 3. Acute kidney injury most likely due to infection: Patient admitted with creatinine 2.55, improved to 1.27 with IV fluid normal saline. Previous creatinine was 0.93 on 09/17. 4. Hyperkalemia -Secondary to above monitoring 5. Chronic pain syndrome ?Patient is on Lyrica and Cymbalta did continue 6. Diabetes mellitus type II -patient's oral hypoglycemics held. Placed on long acting insulin, Accu-Cheks a.c. and at bedtime and covered with sliding scale insulin 7. Class II obesity with BMI of 36.2 ?Weight loss advised 8. Physical deconditioning - Requested for PT OT eval and social media coordinator to assist with discharge planning 9. Dyslipidemia ?Patient is on pravastatin at home 10. GERD ?Patient is on PPI 11. Hypertension: BP was high 172/79. Started on amlodipine. Blood pressure improved. DVT prophylaxis ?SC heparin Discharge medication reconciliation done. Discharge follow-up instructions completed. Discharge process discussed with the patient and all questions were answered to patient's satisfaction. Patient advised to hold losartan for 1 week and repeat BMP follow-up PCP to decide about resumption of losartan. In the meantime prescription given for amlodipine as patient blood pressure was elevated. Dose of tizanidine decreased. Meloxicam discontinued. Total time spent, exact 35 minutes on discharge meds reconciliation, examination, coordination of care with nurses and ancillary staff, review of imaging and blood test and discussion with the patient on follow-up instructions Physical Exam Narrative Seen and examined. No fever last 48 hours. No shortness of breath or tachypnea. Patient denies history of COPD, asthma but has history of smoking in the past quit a year ago. Physical exam General: Alert, Oriented x3, Cooperative HEENT: Atraumatic, PERRLA, EOMI, Normocephalic Oral: No Gingival or Mucosal Lesions/ Ulcerations Neck: Supple, No JVD, Negative Carotid Bruits Lungs: Air entry diminished in bilateral lung bases. No crepitation/rhonchi Cardiovascular: Regular rate, Regular Rhythm, Normal S1, Normal S2, No murmurs Abdomen: Bowel Sounds Present, Soft, Non Tender, Non-Distended : No renal angle tenderness. No suprapubic tenderness. Extremities: No edema, Capillary Refill Less than 3 Seconds Skin: No rashes, No breakdown Musculoskeletal: No Tenderness to Palpation of Joints or Extremities Neurological: Cranial nerves II-XII grossly intact, DTR 2+/4 Psych/Mental Status: Normal Affect, Appropriate. Weight / BMI Weight Weight: 186 lb 8.177 oz Body Mass Index (BMI) 36.1 ABG / Lab / Microbiology Data Result Diagrams: 02/01/21 06:30 02/01/21 06:30 Laboratory: Laboratory Results - last 24 hr 02/01/21 11:37: POC Glucose 164 H 02/01/21 16:12: POC Glucose 157 H 02/01/21 21:08: POC Glucose 153 H 02/02/21 06:13: POC Glucose 93 Microbiology: Microbiology 01/31/21 22:20 Mucosa - Nasopharyngeal Respiratory Panel (PCR) - Final 01/31/21 21:57 Urine, Clean Catch Legionella Antigen - Final 01/31/21 21:57 Urine, Clean Catch Streptococcus pneumoniae Antigen (M - Final 01/31/21 18:56 Nasal Secretion SARS-CoV-2 Antigen (Rapid) - Final Meaningful Use Info Meaningful Use Diagnoses (Choose all that apply): None applicable Discharge Plan Admission Admit Date/Time: 01/31/21 20:17 Primary Reason for Your Visit: Bilateral pneumonia Attending Provider: Dilshad Huffman Primary Care Provider: [facility] Borjas Instructions Additional Instructions / Restrictions: BMP in 1 week and follow with PCP for REINALDO Discharge Orders/Prescriptions Prescriptions: New amlodipine 10 mg Tablet 5 mg PO DAILY Qty: 30 RF: 0 levofloxacin 500 mg tablet 500 mg PO DAILY Qty: 5 RF: 0 Continued oxycodone-acetaminophen [Percocet] 5-325 mg tablet 1 tab PO TID PRN (Reason: Pain Or Fever) RF: 0 pregabalin 100 mg capsule 100 mg PO TID RF: 0 aspirin [Adult Low Dose Aspirin] 81 mg tablet,delayed release (DR/EC) 81 mg PO DAILY RF: 0 cetirizine 10 mg tablet 10 mg PO DAILY PRN (Reason: Pain) RF: 0 duloxetine 60 mg capsule,delayed release(DR/EC) 60 mg PO DAILY RF: 0 polyethylene glycol 3350 [Miralax] 17 gram powder in packet 17 g PO .3xweek RF: 0 famotidine 20 mg tablet 20 mg PO BID RF: 0 pravastatin 80 MG tablet 80 mg PO QHS RF: 0 multivitamin with folic acid 1 TABLET tablet 1 tab PO DAILY RF: 0 dexlansoprazole 60 mg capsule,biphase delayed releas 60 mg PO QHS RF: 0 metformin 1,000 MG tablet 1,000 mg PO BID RF: 0 ascorbic acid (vitamin C) [Vitamin C] 500 mg Tablet 500 mg PO DAILY RF: 0 sennosides 15 mg Tablet 15 mg PO BID PRN (Reason: Constipation) RF: 0 vitamin B complex Capsule 1 cap PO DAILY RF: 0 cholecalciferol (vitamin D3) [Vitamin D3] 125 mcg (5,000 unit) Tablet 125 mcg PO DAILY RF: 0 Lantus U-100 Insulin 100 unit/mL solution 40 unit SC QHS Qty: 0 RF: 0 Changed tizanidine 4 mg Tablet 2 mg PO Q8H PRN (Reason: .) Qty: 0 RF: 0 zolpidem 10 mg tablet 5 mg PO QHS PRN (Reason: Sleep) Qty: 0 RF: 0 Held losartan 25 mg tablet 25 mg PO DAILY RF: 0 Hold Instructions: Hold for 1 week with repeat BMP in 1 week until kidney function returns to normal. Follow-up PCP Discontinued meloxicam 7.5 mg tablet 7.5 ea PO BID RF: 0 vuhyrmx-srth-lkizq-oreg-capryl 100 mg-150 mg- 50 mg-150 mg Capsule PO RF: 0 Referrals / Follow Up: Constance Reyes MD [STAFF PHYSICIAN] - In 1 Week ([facility] Thorne [Primary Care Provider] - In 1 Week Disposition Disposition (needs filled in before D/C Order can be placed): Home, Self Care Charges/Coding Visit Charges Inpatient E&M: 86578 Disch Hosp
[2021-02-02] MEDS: amLODIPine 10 MG Tablet PO (10:55)
[2021-02-02] MEDS: Insulin Lispro 100 UNIT/ML INSULN.PEN SC (11:08)
[2021-02-02 11:45] LABS: Bedside Glucose 153 mg/dL (70-110)
--- NOTE | 2021-02-02 11:50 | CASEMGMT ---
No therapy recommended for PT, pt on RA. Pt to dc home today.
== END 2021-02-02 13:00 | disposition home or self-care (01) | DRG 194 ==
LOC: ED 19:03 → MS3 20:52
PROVIDERS: Internal Medicine; Admitting Provider Family Medicine; Emergency Provider Emergency Medicine; Visit Provider Internal Medicine
DX: J18.9 Pneumonia, unspecified organism (principal); N17.9 Acute kidney failure, unspecified; J44.0 Chronic obstructive pulmonary disease with (acute) lower respiratory infection; E11.42 Type 2 diabetes mellitus with diabetic polyneuropathy; Z79.4 Long term (current) use of insulin; K59.09 Other constipation; N30.00 Acute cystitis without hematuria; G89.4 Chronic pain syndrome; E78.5 Hyperlipidemia, unspecified; E66.9 Obesity, unspecified; Z68.36 Body mass index [BMI] 36.0-36.9, adult; Z87.891 Personal history of nicotine dependence; E87.5 Hyperkalemia; K21.9 Gastro-esophageal reflux disease without esophagitis; I10 Essential (primary) hypertension; E86.0 Dehydration; F41.8 Other specified anxiety disorders; M19.90 Unspecified osteoarthritis, unspecified site; S50.11XA Contusion of right forearm, initial encounter; X58.XXXA Exposure to other specified factors, initial encounter; R25.1 Tremor, unspecified; Z79.899 Other long term (current) drug therapy
CPT/HCPCS: 96376; 36415; 71045; 80048; 80053; 81001; 82962; 85025; 87426; 87449; 87633; 93005; 94640; 96361; 96365; 96366; 96367; 96372; 96375; 97162; 97166; 97530; 99218; 99285; J7030; P9612; A4216; G0378

== ENCOUNTER 2021-02-28 12:07 | Outpatient (CLI) | payer MEDICARE, SELFPAY ==
[2021-02-28 12:48] LABS: Absolute Lymphocyte Count 4.67 X10^3/uL (0.83-4.51); Absolute Neutrophil Count 6.2 X10^3/uL (2.0-7.7); Basophil# 0.06 X10^3/uL; Basophil% 0.5 % (0-1); Eosinophils% 1.6 % (0-5); Hematocrit 45.2 % (37-47); Hemoglobin 15.1 g/dL (12.0-15.0); Lymphocyte # 4.67 X10^3/ul (0.83-4.51); Lymphocyte % 37.3 % (19-41); Mean Corp Hgb Conc 33.4 g/dL (32-36); Mean Corpuscular Hgb 33.3 pg (27.0-32.0); Mean Corpuscular Volume 99.6 fL (81-99); Monocyte# 1.26 X10^3/uL; Monocyte% 10.1 % (0-10); NRBC Flagged by Analyzer 0.2 % (0-5); Neutrophil # 6.17 X10^3/uL (2.7-7.7); Neutrophil % 49.3 % (47-70); Platelet Count 251 K/mm3 (150-450); RBC Distribution Width CV 14.2 % (11.6-14.6); RBC Distribution Width SD 51.3 fl (35.1-43.9); Red Blood Count 4.54 M/mm3 (4.2-5.4); White Blood Count 12.5 K/mm3 (4.4-11.0)
[2021-02-28 13:28] LABS: Anion Gap 10 (5-15); BUN 31 mg/dL (7-18); BUN/Creat Ratio 25.8 RATIO (10-20); Calcium,Total 11.2 mg/dL (8.5-10.1); Chloride 103 mmol/L (98-107); EST Glomerular Filtration Rate 48 mL/min (>60); Est Glom Filt Rate - Afr Amer 59 mL/min (>60); Glucose 139 mg/dL (74-106); Potassium 4.7 mmol/L (3.5-5.1); Sodium Level 137 mmol/L (136-145)
== END 2021-02-28 23:59 | disposition short-term general hospital (02) ==
LOC: LABSPEC 12:09 → LAB 03-01 06:26
PROVIDERS: Visit Provider Nurse Practitioner Adult Health
DX: J18.9 Pneumonia, unspecified organism (principal); D72.829 Elevated white blood cell count, unspecified
CPT/HCPCS: 36415; 80048; 85025

== ENCOUNTER 2021-03-16 12:48 | Outpatient (CLI) | payer MEDICARE, SELFPAY ==
[2021-03-16 14:21] LABS: ALB/GLOB Ratio 0.8 RATIO (0.9-2.4); AST(SGOT) 32 U/L (15-37); Alanine Aminotransfer ALT/SGPT 39 U/L (13-56); Albumin, Serum 3.5 g/dL (3.2-5.0); Alkaline Phosphatase 39 U/L (45-117); Anion Gap 8 (5-15); BUN 19 mg/dL (7-18); BUN/Creat Ratio 18.6 RATIO (10-20); Chloride 104 mmol/L (98-107); Creatinine, Serum 1.02 mg/dL (0.55-1.02); EST Glomerular Filtration Rate 58 mL/min (>60); Est Glom Filt Rate - Afr Amer 71 mL/min (>60); Globulin 4.2 g/dL (2.2-4.2); Glucose 185 mg/dL (74-106); Potassium 4.9 mmol/L (3.5-5.1); Protein, Total 7.7 g/dL (6.4-8.2); Sodium Level 138 mmol/L (136-145)
[2021-03-16 14:24] LABS: PTHIN 30.3 pg/mL (18.4-80.1)
[2021-03-16 14:29] LABS: Vitamin D,25 Hydroxy 27.4 ng/mL
== END 2021-03-16 23:59 | disposition home or self-care (01) ==
LOC: LAB 12:50
DX: E83.52 Hypercalcemia (principal)
CPT/HCPCS: 36415; 80053; 82306; 82330; 83970

== ENCOUNTER 2021-03-18 15:49 | Outpatient (CLI) | payer MEDICARE, OTHER, SELFPAY | END 2021-03-18 23:59 | disposition home or self-care (01) | PROVIDERS: Visit Provider Nurse Practitioner Adult Health | DX: E83.52 Hypercalcemia (principal) | CPT/HCPCS: 81050 ==

== ENCOUNTER 2021-04-10 12:17 | Outpatient (CLI) | payer MEDICARE, SELFPAY ==
[2021-04-10 12:28] LABS: Absolute Lymphocyte Count 4.07 X10^3/uL (0.83-4.51); Absolute Neutrophil Count 3.2 X10^3/uL (2.0-7.7); Basophil# 0.07 X10^3/uL; Basophil% 0.8 % (0-1); Eosinophil# 0.42 X10^3/uL; Hematocrit 41.4 % (37-47); Hemoglobin 13.7 g/dL (12.0-15.0); Lymphocyte # 4.07 X10^3/ul (0.83-4.51); Lymphocyte % 48.2 % (19-41); Mean Corp Hgb Conc 33.1 g/dL (32-36); Mean Corpuscular Hgb 33.5 pg (27.0-32.0); Mean Corpuscular Volume 101.2 fL (81-99); Mean Platelet Vol. 10.5 fl (6.2-12.0); Monocyte# 0.63 X10^3/uL; Monocyte% 7.5 % (0-10); NRBC Flagged by Analyzer 0 % (0-5); Neutrophil # 3.22 X10^3/uL (2.7-7.7); Neutrophil % 38.1 % (47-70); Platelet Count 222 K/mm3 (150-450); RBC Distribution Width CV 14.1 % (11.6-14.6); RBC Distribution Width SD 51.7 fl (35.1-43.9); Red Blood Count 4.09 M/mm3 (4.2-5.4); White Blood Count 8.4 K/mm3 (4.4-11.0)
[2021-04-10 13:15] LABS: BNP,B-Type NATRIURETIC PEPTIDE 24.6 pg/mL (0-100)
== END 2021-04-10 23:59 | disposition home or self-care (01) ==
LOC: LAB 12:17
PROVIDERS: Visit Provider Nurse Practitioner Adult Health
DX: R06.02 Shortness of breath (principal)
CPT/HCPCS: 36415; 83880; 85025

== ENCOUNTER 2021-05-03 15:16 | Outpatient (CLI) | payer MEDICARE, OTHER, SELFPAY ==
--- NOTE | 2021-05-03 15:19 | BI_ITS ---
MAMMOGRAPHY - BILATERAL SCREENING REASON FOR EXAM: Female, 60 years old. Routine annual screening examination. PERTINENT HISTORY: Grandmother with breast cancer. Remote right stereotactic breast biopsy. TECHNIQUE: Digital bilateral breast todd (3D mammographic acquisition) in the CC and MLO projections. 2-D mediolateral oblique (MLO) and craniocaudad (CC) views of both breasts were obtained. CAD: Full Field Digital Mammography with Computer Added Detection was performed. COMPARISON: Comparison is made with prior study dated 01/13/2020 and 11/01/2018. FINDINGS: Breast Composition: The breasts are almost entirely fatty. There are no dominant masses or suspicious calcifications. Stable small benign-appearing bilateral axillary lymph nodes. No other significant abnormalities are identified. There has been no significant change since the prior study. BI/SCRN MAMM (CAD)W/TODD BILAT IMPRESSION: Stable bilateral screening mammogram. Yearly follow-up mammogram recommended. (A) ASSESSMENT CATEGORY: BIRADS Category 2: Benign. A letter regarding these results will be sent to the patient by the facility within 30 days. Approximately 10% of breast cancers are not detected by mammography. A normal mammogram should not delay biopsy of a clinically suspicious abnormality. [id number] Electronically Signed: Zafar Sue MD at 8:11 EDT ,
== END 2021-05-03 23:59 | disposition home or self-care (01) ==
LOC: OPBI 15:17
PROVIDERS: Visit Provider Nurse Practitioner Adult Health
DX: Z12.31 Encounter for screening mammogram for malignant neoplasm of breast (principal)
CPT/HCPCS: 77063; 77067

== ENCOUNTER 2021-05-03 15:49 | Outpatient (CLI) | payer MEDICARE, SELFPAY ==
--- NOTE | 2021-05-03 16:01 | RAD_ITS ---
EXAM: AP chest. HISTORY: PNEUMONIA TECHNIQUE: XR Chest 2 Views PA and lateral. COMPARISON: AP upright exam January 31, 2021. LIMITATIONS: None. HEART: Normal size. TUBES/LINES: None. LUNGS: Normal. PLEURA: Normal. MEDIASTINUM: Normal. BONES/SOFT TISSUES: Postoperative change at the cervicothoracic junction again noted. Postoperative change at L3-L4 partially included. Mild scoliosis or mild rotated positioning. OTHER: Cholecystectomy clips. CONCLUSION: No acute intrathoracic abnormality. Previously seen subtle basilar opacities have resolved. Electronically Signed: Lydia Hoffman MD at 5:13 EDT , RAD/Chest PA and Lateral
== END 2021-05-03 23:59 | disposition home or self-care (01) ==
LOC: LAB 15:51 → RAD 15:53
PROVIDERS: Visit Provider Nurse Practitioner Adult Health
DX: J18.9 Pneumonia, unspecified organism (principal)
CPT/HCPCS: 71046

== ENCOUNTER → 2021-07-26 | Outpatient (CLI) | payer MEDICARE, SELFPAY ==
[2021-07-26 18:07] LABS: Vitamin D,25 Hydroxy 36.2 ng/mL
[2021-07-26 18:09] LABS: PTHIN 14.3 pg/mL (18.4-80.1)
[2021-07-26 18:51] LABS: Anion Gap 9 (5-15); BUN 22 mg/dL (7-18); BUN/Creat Ratio 17.6 RATIO (10-20); Calcium,Total 11.9 mg/dL (8.5-10.1); Chloride 105 mmol/L (98-107); Creatinine, Serum 1.25 mg/dL (0.55-1.02); EST Glomerular Filtration Rate 46 mL/min (>60); Est Glom Filt Rate - Afr Amer 56 mL/min (>60); Glucose 223 mg/dL (74-106); Sodium Level 137 mmol/L (136-145)
== END | disposition home or self-care (01) ==
LOC: BIMLAB 11:44
PROVIDERS: Visit Provider Internal Medicine Endocrinology, Diabetes & Metabolism
DX: E21.3 Hyperparathyroidism, unspecified (principal); E83.52 Hypercalcemia; M81.0 Age-related osteoporosis without current pathological fracture; E55.9 Vitamin D deficiency, unspecified
CPT/HCPCS: 36415; 80048; 82306; 83970

== ENCOUNTER → 2021-08-04 | Outpatient (CLI) | payer MEDICARE, SELFPAY ==
[2021-08-04 13:09] VITALS: BP 146/74; PULSE 82; RESP 16; TEMP 36.1; O2SAT 95; BMI 34.3
[2021-08-04] MEDS: DENOSUMAB 60 MG/ML SC (13:12)
== END | disposition home or self-care (01) ==
LOC: MEDOUTP 12:56
PROVIDERS: Referring Provider Internal Medicine Endocrinology, Diabetes & Metabolism; Visit Provider Internal Medicine Endocrinology, Diabetes & Metabolism
DX: M81.0 Age-related osteoporosis without current pathological fracture (principal)
CPT/HCPCS: 96372; J0897

== ENCOUNTER → 2022-01-02 | Outpatient (CLI) | payer MEDICARE, SELFPAY ==
[2022-01-02 13:08] LABS: Vitamin D,25 Hydroxy 42.3 ng/mL
[2022-01-02 13:25] LABS: ALB/GLOB Ratio 0.9 RATIO (0.9-2.4); AST(SGOT) 50 U/L (15-37); Alanine Aminotransfer ALT/SGPT 48 U/L (13-56); Albumin, Serum 3.6 g/dL (3.2-5.0); Alkaline Phosphatase 30 U/L (45-117); Anion Gap 11 (5-15); BUN 32 mg/dL (7-18); BUN/Creat Ratio 18.7 RATIO (10-20); Calcium,Total 10.5 mg/dL (8.5-10.1); Chloride 105 mmol/L (98-107); Cholesterol 136 mg/dL (200); Creatinine, Serum 1.71 mg/dL (0.55-1.02); EST Glomerular Filtration Rate 32 mL/min (>60); Est Glom Filt Rate - Afr Amer 39 mL/min (>60); Glucose 143 mg/dL (74-106); High Density Lipoprotein 42 mg/dL; Protein, Total 7.6 g/dL (6.4-8.2); Sodium Level 136 mmol/L (136-145); Triglycerides 219 mg/dL; Very Low Density Lipoprotein 44 mg/dL (5-40)
[2022-01-02 14:02] LABS: PTHIN 42.9 pg/mL (18.4-80.1)
[2022-01-02 14:44] LABS: Microalbumin,Random Urine 35.4 mg/L (NO RANGE EST.); Microalbumin:Creatinine Ratio 18.9 mg/g CRE (<30 mg/g CRE)
== END | disposition home or self-care (01) ==
PROVIDERS: Referring Provider Internal Medicine Endocrinology, Diabetes & Metabolism; Visit Provider Internal Medicine Endocrinology, Diabetes & Metabolism
DX: E55.9 Vitamin D deficiency, unspecified (principal); E11.69 Type 2 diabetes mellitus with other specified complication; M81.0 Age-related osteoporosis without current pathological fracture; E83.52 Hypercalcemia; E66.9 Obesity, unspecified; I10 Essential (primary) hypertension
CPT/HCPCS: 80053; 80061; 82043; 82306; 82570; 82784; 83970; 84165; 84166; 86334

== ENCOUNTER → 2022-02-03 | Outpatient (CLI) | payer MEDICARE, SELFPAY ==
[2022-02-03 13:09] VITALS: BP 109/57; PULSE 114; O2SAT 95
[2022-02-03] MEDS: DENOSUMAB 60 MG/ML SC (13:11)
== END | disposition home or self-care (01) ==
LOC: MEDOUTP 13:01
PROVIDERS: Referring Provider Internal Medicine Endocrinology, Diabetes & Metabolism; Visit Provider Internal Medicine Endocrinology, Diabetes & Metabolism
DX: M81.0 Age-related osteoporosis without current pathological fracture (principal)
CPT/HCPCS: 96372; J0897

== ENCOUNTER → 2022-05-09 | Outpatient (CLI) | payer MEDICARE, SELFPAY ==
--- NOTE | 2022-05-09 13:37 | BI_ITS ---
MAMMOGRAPHY - BILATERAL SCREENING REASON FOR EXAM: Female, 61 years old. Routine annual screening examination. PERTINENT HISTORY: Grandmother with breast cancer. Remote right stereotactic breast biopsy. TECHNIQUE: Digital bilateral breast todd (3D mammographic acquisition) in the CC and MLO projections. 2-D mediolateral oblique (MLO) and craniocaudad (CC) views of both breasts were obtained. CAD: Full Field Digital Mammography with Computer Added Detection was performed. COMPARISON: Comparison is made with prior examination May 03, 2021 and January 13, 2020. FINDINGS: Breast Composition: The breasts are almost entirely fatty. There are no dominant masses or suspicious calcifications. Stable benign appearing bilateral axillary lymph nodes. A tissue clip marker is seen in the deep inferior central portion of the right breast. No other significant abnormalities are identified. There has been no significant change since the prior study. BI/SCRN MAMM (CAD)W/TODD BILAT IMPRESSION: Stable bilateral screening mammogram. Yearly follow-up mammogram recommended. (A) ASSESSMENT CATEGORY: BIRADS Category 2: Benign. A letter regarding these results will be sent to the patient by the facility within 30 days. Approximately 10% of breast cancers are not detected by mammography. A normal mammogram should not delay biopsy of a clinically suspicious abnormality. [id number] Electronically Signed: Zafar Sue MD at 15:35 EDT ,
== END | disposition home or self-care (01) ==
LOC: OPBI 13:35
PROVIDERS: Visit Provider Internal Medicine Endocrinology, Diabetes & Metabolism
DX: Z12.31 Encounter for screening mammogram for malignant neoplasm of breast (principal)
CPT/HCPCS: 77063; 77067

== ENCOUNTER → 2022-06-01 | Outpatient (CLI) | payer MEDICARE, SELFPAY ==
[2022-06-01 09:24] LABS: Hematocrit 36.9 % (37-47); Hemoglobin 11.6 g/dL (12.0-15.0); Mean Corp Hgb Conc 31.4 g/dL (32-36); Mean Corpuscular Hgb 28.5 pg (27.0-32.0); Mean Corpuscular Volume 90.7 fL (81-99); Mean Platelet Vol. 10.5 fl (6.2-12.0); Platelet Count 164 K/mm3 (150-450); RBC Distribution Width CV 15.5 % (11.6-14.6); RBC Distribution Width SD 51.1 fl (35.1-43.9); Red Blood Count 4.07 M/mm3 (4.2-5.4); White Blood Count 5.5 K/mm3 (4.4-11.0)
[2022-06-01 09:52] LABS: Vitamin D,25 Hydroxy 68.8 ng/mL
[2022-06-01 10:01] LABS: ALB/GLOB Ratio 0.8 RATIO (0.9-2.4); AST(SGOT) 39 U/L (15-37); Alanine Aminotransfer ALT/SGPT 37 U/L (13-56); Albumin, Serum 3.5 g/dL (3.2-5.0); Alkaline Phosphatase 27 U/L (45-117); Anion Gap 4 (5-15); BUN 19 mg/dL (7-18); Calcium,Total 11.3 mg/dL (8.5-10.1); Chloride 108 mmol/L (98-107); Cholesterol 152 mg/dL (200); Creatinine, Serum 1.36 mg/dL (0.55-1.02); EST Glomerular Filtration Rate 42 mL/min (>60); Est Glom Filt Rate - Afr Amer 50 mL/min (>60); Globulin 4.6 g/dL (2.2-4.2); Glucose 135 mg/dL (74-106); High Density Lipoprotein 38 mg/dL; Magnesium 1.8 mg/dL (1.6-2.6); Potassium 5.2 mmol/L (3.5-5.1); Protein, Total 8.1 g/dL (6.4-8.2); Sodium Level 138 mmol/L (136-145); Thyroid Stim Hormone (TSH) 3.33 uIU/mL (0.358-3.74); Triglycerides 321 mg/dL; Very Low Density Lipoprotein 64 mg/dL (5-40)
== END | disposition home or self-care (01) ==
LOC: LAB 08:48
DX: E78.5 Hyperlipidemia, unspecified (principal); I10 Essential (primary) hypertension; R25.2 Cramp and spasm
CPT/HCPCS: 36415; 80053; 80061; 82306; 83735; 84443; 85027

== ENCOUNTER → 2022-06-30 | Outpatient (CLI) | payer MEDICARE, SELFPAY ==
[2022-06-30 09:06] LABS: Hemoglobin A1c 7.2 % (3.8-5.6)
== END | disposition home or self-care (01) ==
LOC: LAB 08:10
PROVIDERS: Visit Provider Internal Medicine Endocrinology, Diabetes & Metabolism
DX: E11.69 Type 2 diabetes mellitus with other specified complication (principal); E66.9 Obesity, unspecified
CPT/HCPCS: 36415; 83036

== ENCOUNTER → 2022-07-14 | Outpatient (CLI) | payer MEDICARE, SELFPAY ==
[2022-07-14 11:32] LABS: PTHIN 22.4 pg/mL (18.4-80.1)
[2022-07-14 11:36] LABS: Vitamin D,25 Hydroxy 66.8 ng/mL
[2022-07-14 11:44] LABS: ALB/GLOB Ratio 0.9 RATIO (0.9-2.4); AST(SGOT) 32 U/L (15-37); Alanine Aminotransfer ALT/SGPT 28 U/L (13-56); Albumin, Serum 3.6 g/dL (3.2-5.0); Alkaline Phosphatase 34 U/L (45-117); Anion Gap 7 (5-15); BUN 24 mg/dL (7-18); BUN/Creat Ratio 17.5 RATIO (10-20); Chloride 110 mmol/L (98-107); Creatinine, Serum 1.37 mg/dL (0.55-1.02); EST Glomerular Filtration Rate 41 mL/min (>60); Est Glom Filt Rate - Afr Amer 50 mL/min (>60); Globulin 4.1 g/dL (2.2-4.2); Glucose 112 mg/dL (74-106); Protein, Total 7.7 g/dL (6.4-8.2); Sodium Level 138 mmol/L (136-145)
== END | disposition home or self-care (01) ==
LOC: LAB 10:27
PROVIDERS: Referring Provider Internal Medicine Endocrinology, Diabetes & Metabolism; Visit Provider Internal Medicine Endocrinology, Diabetes & Metabolism
DX: E55.9 Vitamin D deficiency, unspecified (principal); E11.22 Type 2 diabetes mellitus with diabetic chronic kidney disease; N18.30 Chronic kidney disease, stage 3 unspecified; M81.0 Age-related osteoporosis without current pathological fracture
CPT/HCPCS: 80053; 82306; 83970

== ENCOUNTER 2022-08-04 12:49 | Outpatient (CLI) | payer MEDICARE, SELFPAY ==
[2022-08-04 13:29] VITALS: BP 113/56; PULSE 84; RESP 16; TEMP 36.2; O2SAT 100; BMI 31.0
[2022-08-04] MEDS: DENOSUMAB 60 MG/ML SC (13:30)
== END 2022-08-04 12:50 | disposition home or self-care (01) ==
LOC: MEDOUTP 12:50
PROVIDERS: Referring Provider Internal Medicine Endocrinology, Diabetes & Metabolism; Visit Provider Internal Medicine Endocrinology, Diabetes & Metabolism
DX: M81.0 Age-related osteoporosis without current pathological fracture (principal)
CPT/HCPCS: 96372; J0897

== ENCOUNTER 2023-02-02 09:48 | Outpatient (CLI) | payer MEDICARE, SELFPAY ==
[2023-02-02 09:54] VITALS: BP 139/67; PULSE 83; RESP 16; TEMP 35.9; BMI 32.0
[2023-02-02] MEDS: DENOSUMAB 60 MG/ML SC (09:57)
--- OUTSIDE RECORDS SUMMARY | 2023-02-02 10:20 | XMS RPT_ITS | CCD ---
Author Name Unknown Address [address] [place] [address] Organization [facility] Care Team Providers Care Geophysical Party Chief Name Role Phone Janusz Elaine CNP Primary Care Provider Juventino WEB SERVICES PROFESSIONAL, Mahamed Primary Care Provider [phone] Juventino WEB SERVICES PROFESSIONAL, Mahamed Primary Care Provider [phone] Juventino WEB SERVICES PROFESSIONAL, Mahamed Primary Care Provider CHARLENE JAUREGUISSICA Primary Care Unavailable Juventino WEB SERVICES PROFESSIONAL, Mahamed Primary Care Provider [phone] LINA VIEIRA Attending Unavailable MARYANNEYOJANA BISHOP Referring [...] BEE)] Drug Allergy 03-21-2022 Other: See Comments [facility] Medications Current Medications Medication Drug Class(es) Dates [...] sources) Taking high risk medication; Translations: [Other chcf (current) drug therapy] Episodic Other connective tissue [...] aftercare (17 sources) 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; Translations: [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] Onset: 08-06-2018 05-17-2022 Episodic Other aftercare (1 source) Other chcf (current) drug therapy; Translations: [High risk medication [...] 152.4 cm Lina Vieira DO Work Phone: [facility] 11-07-2022 14:40-0400 Body weight 73.94 kg Lina Vieira DO Work Phone: [facility] 11-07-2022 14:40-0400 Diastolic blood pressure 62 mm[Hg] Lina Vieira DO Work Phone: [facility] 11-07-2022 14:40-0400 Heart rate 85 /min Lina Vieira DO Work Phone: [facility] 11-07-2022 14:40-0400 Respiratory rate 18 /min Lina Vieira DO Work Phone: [facility] 11-07-2022 14:40-0400 SaO2% (BldA) [Mass fraction] 98 % Lina Vieira DO Work Phone: [facility] 11-07-2022 14:40-0400 Systolic blood pressure 113 mm[Hg] Lina Vieira DO Work Phone: [facility] 08-15-2022 14:51-0400 Body height 152.4 cm Yojana Maryanne SHAKER SCREEN OPERATOR.PODODERMATOLOGIST Work Phone: [facility] 08-15-2022 14:51-0400 Body weight 72.12 kg Yojana Taholah SHAKER SCREEN OPERATOR.PODODERMATOLOGIST Work Phone: [facility] 08-15-2022 14:51-0400 Diastolic blood pressure 71 mm[Hg] Yojana Maryanne SHAKER SCREEN OPERATOR.PODODERMATOLOGIST Work Phone: [facility] 08-15-2022 14:51-0400 Heart rate 78 /min Yojana Maryanne SHAKER SCREEN OPERATOR.PODODERMATOLOGIST Work Phone: [facility] 08-15-2022 14:51-0400 Respiratory rate 19 /min Yojana Taholah SHAKER SCREEN OPERATOR.PODODERMATOLOGIST Work Phone: [facility] 08-15-2022 14:51-0400 SaO2% (BldA) [Mass fraction] 97 % Yojana Maryanne SHAKER SCREEN OPERATOR.PODODERMATOLOGIST Work Phone: [facility] 08-15-2022 14:51-0400 Systolic blood pressure 148 mm[Hg] Yojana Maryanne SHAKER SCREEN OPERATOR.PODODERMATOLOGIST Work Phone: [facility] 05-17-2022 14:23-0400 Body height 155.4 cm Yojana Maryanne SHAKER SCREEN OPERATOR.PODODERMATOLOGIST Work Phone: [facility] 05-17-2022 14:23-0400 Body weight 75.75 kg Yojana Maryanne SHAKER SCREEN OPERATOR.PODODERMATOLOGIST Work Phone: [facility] 05-17-2022 14:23-0400 Diastolic blood pressure 68 mm[Hg] Yojana Maryanne SHAKER SCREEN OPERATOR.PODODERMATOLOGIST Work Phone: [facility] 05-17-2022 14:23-0400 Heart rate 101 /min Yojana Taholah SHAKER SCREEN OPERATOR.PODODERMATOLOGIST Work Phone: [facility] 05-17-2022 14:23-0400 Respiratory rate 19 /min Yojana Taholah SHAKER SCREEN OPERATOR.PODODERMATOLOGIST Work Phone: [facility] 05-17-2022 14:23-0400 SaO2% (BldA) [Mass fraction] 95 % Yojana Taholah SHAKER SCREEN OPERATOR.PODODERMATOLOGIST Work Phone: [facility] 05-17-2022 14:23-0400 Systolic blood pressure 138 mm[Hg] Yojana Taholah SHAKER SCREEN OPERATOR.PODODERMATOLOGIST Work Phone: [facility] 02-15-2022 14:19-0500 Diastolic blood pressure 80 mm[Hg] Yojana Taholah SHAKER SCREEN OPERATOR.PODODERMATOLOGIST Work Phone: [facility] 02-15-2022 14:19-0500 Heart rate 105 /min Yojana Maryanne SHAKER SCREEN OPERATOR.PODODERMATOLOGIST Work Phone: [facility] 02-15-2022 14:19-0500 SaO2% (BldA) [Mass fraction] 98 % Yojana Taholah SHAKER SCREEN OPERATOR.PODODERMATOLOGIST Work Phone: [facility] 02-15-2022 14:19-0500 Systolic blood pressure 131 mm[Hg] Yojana Maryanne SHAKER SCREEN OPERATOR.PODODERMATOLOGIST Work Phone: [facility] 08-15-2021 15:13-0400 Body height 152.4 cm [facility] Maryanne SHAKER SCREEN OPERATOR.PODODERMATOLOGIST Work Phone: [facility] 08-15-2021 15:13-0400 Body weight 79.83 kg [facility] Taholah SHAKER SCREEN OPERATOR.PODODERMATOLOGIST Work Phone: [facility] 08-15-2021 15:13-0400 Diastolic blood pressure 79 mm[Hg] [facility] Taholah SHAKER SCREEN OPERATOR.PODODERMATOLOGIST Work Phone: [facility] 08-15-2021 15:13-0400 Heart rate 79 /min [facility] SHAKER SCREEN OPERATOR.PODODERMATOLOGIST Work Phone: [facility] 08-15-2021 15:13-0400 Respiratory rate 19 /min [facility] Maryanne SHAKER SCREEN OPERATOR.PODODERMATOLOGIST Work Phone: [facility] 08-15-2021 15:13-0400 SaO2% (BldA) [Mass fraction] 98 % [facility] SHAKER SCREEN OPERATOR.PODODERMATOLOGIST Work Phone: [facility] 08-15-2021 15:13-0400 Systolic blood pressure 168 mm[Hg] [facility] SHAKER SCREEN OPERATOR.PODODERMATOLOGIST Work Phone: [facility] Encounters Encounter Date Encounter Type Care Provider Facility Start: 01-14-2023 Katherine Vee DO Work Phone: Pain Management Procedures Date Procedure Procedure Detail Performing Clinician Start: 09-05-2022 Us retroperitoneal r eal time w/image complete [facility] Provider Plan of Treatment Date Care Activity Detail Author Start: 03-24-2032 Urine microalbumin profile DTaP,Tdap,Td Vaccine (3 - Td or Tdap) [facility] Start: 11-08-2023 BP Controlled (<130/80) BP Con trolled (<130/80) [facility] Start: 10-06-2022 Covid-19 Vaccine () Covid-19 Vaccine () [facility] Start: 10-06-2022 Influenza vaccination C [facility] Start: 08-15-2022 End: 10-15-2022 TOXASSURE FLEX 23, URINE TOXASSURE FLEX 23, URINE Lab Routine High risk medication use Expected: 08/15/2022, Expires: 10/15/2022 [facility] Work Phone: Immunizations Immunization Date Immunization Notes Care Provider Zaria jaime 11-23-2021 influenza virus vacc ine, unspecified formulation Yojana Madden SHAKER SCREEN OPERATOR.PODODERMATOLOGIST Work Phone: [facility] 06-28-2020 COVID-19 original vaccine, age 12+ yr, monovalent (PFIZER-BIONTECH - PURPLE TOP) Yojana Madden SHAKER SCREEN OPERATOR.PODODERMATOLOGIST Work Phone: [facility] 05-31-2020 COVID-19 original vaccine, age 12+ yr, monovalent (PFIZER-BIONTECH - PURPLE TOP) Yojana Madden SHAKER SCREEN OPERATOR.PODODERMATOLOGIST Work Phone: [facility] 05-13-2020 COVID-19 vaccine, ag e 12+ yr (PFIZER-BIONTECH - PURPLE TOP) Lina Vieira DO Work Phone: [facility] 04-22-2020 COVID-19 vaccine, ag e 12+ yr (PFIZER-BIONTECH - PURPLE TOP) Lina Vieira DO Work Phone: [facility] Payers Date Payer Category Payer Unknown ANTHEM BLUE CROS S AND BLUE SHIELD ANTHEM MEDIBLUE O [id number] 2018-Present [phone] [address] [place] [address] [facility] [id number] 2018 Unknown [id number] 2008 Unknown [id number] 2008 Unknown [id number] 2008 Unknown [id number] Social History Date Type Detail Facility Start: 07-28-2020 End: 05-17-2022 Tobacco smoking status NHIS Ex-smoker [facility] History of tobacco use Cigarette Smoker [facility] Start: 07-28-2020 End: 08-15-2022 Cigarettes smoked current (pack per day) - Reported 1 [facility] Start: 07-28-2020 End: 05-17-2022 Tobacco use and exposure Smokeless tobacco non-user [facility] Start: 07-28-2020 End: 11-07-2022 Alcohol intake Current non-drinker of alcohol (finding) [facility] Start: 1960 Sex Assigned At Female [facility] Start: 08-05-2021 End: 12-23-2021 Exposure to SARS-CoV-2 (event) Not sure [facility] History of tobacco use Current smoker [facility] Start: 08-15-2022 End: 11-07-2022 Tobacco use panel [facility] National Score (1-10 0), lower number is lower risk 62 [facility] Start: 04-13-2021 Gender identity Identifies as female gender (finding) [facility] Start: 04-13-2021 Sexual orientation Heterosexual (bull kelly) [facility] Medical Equipment Procedure Code Equipment Code Equipment Origin al Text Equipment Identifier Dates Yro-Hr-X-Kind Implant - [id number] Start: 05-13-2014 Clinical Notes 05-12-2015 to 11-07-2022 Patient InstructionsLina Vieira DO - 11/07/2022 2:30 PM EDTTelephone Encounter - Yoel Padgett APRN.DECISION SCIENCE ANALYST - 10/19/2022 8:08 PM OSITOTMahamed Perez RDMS - 09/05/2022 1:00 PM EDT Note Date & Type Note Facility 11-07-2022 Note HNO ID: [id number] Author: Lina Vieira DO Service: ? Author Type: Physician Type: Progress Notes Filed: 11/11/2022 9:43 AM Note Text: Summary: Pain Management follow-up DATE: November 07, 2022 claim # [id number] DOI: 03/09/2008 Allowed diagnosis: S43.401A, S33.5XXA, S40.011A, S50.11XA, S30.0XA, S46.011A, M54.17, S43.431A, M25.811, M51.27, M75.41, M19.077, M48.061 Chief Complaint: Lower back ___ History of Present Illness: Estela Kenney is a 62 year old female being seen at [facility] for a evaluation [...] (htn) Sister other (more content not included)... [facility] 11-07-2022 Instructions Lina Vieira DO - 11/07/2022 [...] transfer of care to Dr. Gold in [place], [place] documented in this encounter [facility] 11-07-2022 History of Presen t illness Narrative Summary: Pain Management follow-up DATE: November 07, 2022 claim # [id number] DOI: 03/09/2008 Allowed diagnosis: S43.401A, S33.5XXA, S40.011A, S50.11XA, S30.0XA, S46.011A, M54.17, S43.431A, M25.811, M51.27, M75.41, M19.077, M48.061 Chief Complaint: Lower back ___ History of Present Illness: Estela Kenney is a 62 year old female being seen at [facility] for a evaluation [...] mg by mouth twice daily as needed. [employer] JUSTICE 2 SENSOR kit apply 1 SENSOR [...] this encounter was entered by Vijaya Matthews medical accountant for Dr. Lina Vieira on November 07, [...] November 07, 2022. documented in this encounter [facility] 10-19-2022 Miscellaneous Notes The following approved medication [...] Last UDS: No results found for: SUMM @FLOW([id number])@ No results found for: SUMM No results found for: SUMMAR Please review and advise. Rita Ayala RN documented in this encounter [facility] 10-05-2022 Miscellaneous Notes Summary: Health Maintenance Review Items addressed in this encounter: Health Maintenance Review Able to close encounter. Candace Ely MA October 05, 2022 6:43 AM 6:43 AM documented in this encounter [facility] 10-04-2022 Miscellaneous Notes Summary: Follow up Appt changed Items addressed in this encounter: Health Maintenance Review Follow up appt changed Able to close encounter. Candace Ely MA October 04, 2022 2:49 PM 2:49 PM documented in this encounter [facility] 09-20-2022 Miscellaneous Notes The following approved medication [...] September 21, 2022. Authorizing Provider: YOJANA MADDEN APRN.PODODERMATOLOGIST Patient phones requesting refills as follows: Requested [...] Last UDS: No results found for: SUMM @FLOW([id number])@ No results found for: SUMM No results found for: SUMMAR Please review and advise. Rita Ayala RN documented in this encounter [facility] 09-05-2022 Note HNO ID: [id number] Author: Mahamed Perez RDMS Service: ? Author Type: [place] Type: Progress Notes Filed: 09/05/2022 2:14 PM [...] RDMS RVT September 05, 2022 2:14 PM [facility] 09-05-2022 History of Presen t illness [...] 2022 2:14 PM documented in this encounter [facility] 09-01-2022 Miscellaneous Notes I sent an e-mail regarding the status of the C-9 for left L3-S1 SNRB. Graciela September 01, 2022 11:00 AM documented in this encounter [facility] 08-22-2022 Miscellaneous Notes Xtampnegrito sharp approved through [facility] Approved 08/22/22-08/23/23 I indexed approval letter Keri Aguiar MA August 22, 2022 5:18 PM documented in this encounter [facility] 08-22-2022 Miscellaneous Notes Xtampza er pa sent to [facility] through [employer] with 2 ov notes,soapp,uds, and contract. Keri Aguiar MA August 22, 2022 3:50 PM documented in this encounter [facility] 08-15-2022 Note HNO ID: [id number] Author: Yojana Madden APRN.PODODERMATOLOGIST Service: ? Author Type: Clinical Nurse Specialist Type: Progress Notes Filed: 08/15/2022 3:37 PM Note Text: SUBJECTIVE: Estela Kenney presents to [facility] for a follow-up appointment for back pain [facility] Last seen by me on 05/17/22 with [...] bilaterally.Negative Fabere sign bilaterally ASSESSMENT: claim # [id number] DOI: 03/09/2008 Allowed diagnosis: S43.401A, S33.5XXA, S40.011A, [...] consistent UDS re (more content not included)... [facility] 08-15-2022 Instructions Yojana Madden APRN.PODODERMATOLOGIST - 08/15/2022 3:26 PM EDT Continue Flexeril [...] in 3 months documented in this encounter [facility] 08-15-2022 History of Presen t illness Narrative SUBJECTIVE: Estela Bailey Pablito presents to [facility] for a follow-up appointment for back pain [facility] Last seen by me on 05/17/22 with [...] bilaterally.Negative Fabere sign bilaterally ASSESSMENT: claim # [id number] DOI: 03/09/2008 Allowed diagnosis: S43.401A, S33.5XXA, S40.011A, [...] August 15, 2022 documented in this encounter [facility] 05-17-2022 Note HNO ID: [id number] Author: Yojana Madden APRN.PODODERMATOLOGIST Service: ? Author Type: Clinical Nurse Specialist Type: Progress Notes Filed: 05/17/2022 2:41 PM Note Text: SUBJECTIVE: Estela Kenney presents to [facility] for a follow-up appointment for back pain [facility] Last seen by tori dumont 02/15/22 with [...] daughter Psych: Mood and affect appropriate. 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 [facility] 05-17-2022 Instructions Yojana Madden APRN.CNS - 05/17/2022 2:31 PM EDT Continue Flexeril PRN Continue Xtampza and percocet These medications helps patient perform ADL, interact with family and friends.No misuse or aberrant behaviors detected. OAARS reviewed and consistent UDS reviewed and consistent Sumbit C9 and order UDS Continue lyrica 100mg TID Continue Mobic Followup in 3 months in office documented in this encounter [facility] 05-17-2022 History of Presen t illness Narrative SUBJECTIVE: Estela Kenney presents to [facility] for a follow-up appointment for back pain [facility] Last seen by tori dumont 02/15/22 with [...] daughter Psych: Mood and affect appropriate. Skin: [place], warm, and dry Pulm: no conversational shortness [...] Negative Fabere sign bilaterally ASSESSMENT: claim # [id number] DOI: 03/09/2008 Allowed diagnosis: S43.401A, S33.5XXA, S40.011A, [...] May 17, 2022 documented in this encounter [facility] 04-23-2022 Miscellaneous Notes The following approved medication [...] April 25, 2022. Authorizing Provider: YOJANA MADDEN APRN.PODODERMATOLOGIST Patient phones requesting refills as follows: Requested [...] Last UDS: No results found for: SUMM @FLOW([id number])@ No results found for: SUMM No results found for: SUMMAR Please review and advise. Rita Ayala RN documented in this encounter [facility] 03-23-2022 Miscellaneous Notes The following approved medication [...] March 26, 2022. Authorizing Provider: YOJANA MADDEN APRN.PODODERMATOLOGIST Patient phones requesting refills as follows: Requested [...] Last UDS: No results found for: SUMM @FLOW([id number])@ No results found for: SUMM No results found for: SUMMAR Please review and advise. Elizabeth Ray RN documented in this encounter [facility] 02-15-2022 Note HNO ID: [id number] Author: Yojana Madden APRN.PODODERMATOLOGIST Service: ? Author Type: Clinical Nurse Specialist Type: Progress Notes Filed: 02/15/2022 3:34 PM Note Text: SUBJECTIVE: Estela Kenney presents to [facility] for a follow-up appointment for back pain [facility] Last seen by me on 11/15/21 Plan [...] Negative Fabere sign bilaterally ASSESSMENT: claim # [id number] DOI: 03/09/2008 Allowed diagnosis: S43.401A, S33.5XXA, S40.011A, [...] understanding. Yojana Madden APRN.SAVANNA February 15, 2022 [facility] 02-15-2022 Instructions Yojana Madden APRN.PODODERMATOLOGIST - 02/15/2022 3:04 PM EST Continue Flexeril [...] months in office documented in this encounter [facility] 02-15-2022 History of Presen t illness Narrative SUBJECTIVE: Estela Kenney presents to [facility] for a follow-up appointment for back pain [facility] Last seen by me on 11/15/21 Plan [...] Negative Fabere sign bilaterally ASSESSMENT: claim # [id number] DOI: 03/09/2008 Allowed diagnosis: S43.401A, S33.5XXA, S40.011A, [...] February 15, 2022 documented in this encounter [facility] 01-16-2022 Miscellaneous Notes The following approved medication [...] Rita Ayala RN documented in this encounter [facility] 12-19-2021 Miscellaneous Notes The following approved medication [...] three times daily. Authorizing Provider: YOJANA MADDEN APRN.PODODERMATOLOGIST Patient phones requesting refills as follows: Requested [...] Mahamed Nguyen RN documented in this encounter [facility] 12-12-2021 Miscellaneous Notes I left a message to reschedule her procedure. Graciela December 12, 2021 3:58 PM documented in this encounter [facility] 12-12-2021 Miscellaneous Notes I spoke with Tory at [facility] regarding changing the SNRB from Right sided to the left side. She gave a verbal authorization to change the sides. She will fax that to me once it has been processed. Graciela Dhaliwal December 12, 2021 2:01 PM documented in this encounter [facility] 12-12-2021 Miscellaneous Notes Pt notified of the [...] 12-15-21; she has been referred to an field director with scheduled appt on 01-05-22. Please advise if change in injection POC. Thank you. Kristyn Edwards RN documented in this encounter [facility] 11-15-[address] Vieira, I received approval for right sided SNRB L3-S1. Please build a case for that to be scheduled Dec 15 @ 1:30. Graciela Paz November 15, 2021 11:17 AM documented in this encounter [facility] 10-24-2021 Miscellaneous Notes The following approved medication requests have been transmitted electronically. Requested Prescriptions Signed Prescriptions Disp Refills meloxicam (MOBIC) 7.5 mg tablet 60 tablet 0 Sig: Take 1 tablet by mouth twice daily. With food. Authorizing Provider: YOJANA MADDEN APRN.PODODERMATOLOGIST Patient phones requesting refills as follows: Requested Prescriptions Pending Prescriptions Disp Refills meloxicam (MOBIC) 7.5 mg tablet 60 tablet 0 Sig: Take 1 tablet by mouth twice daily. With food. Please review and advise. Mahamed Nguyen RN documented in this encounter [facility] 10-19-2021 Miscellaneous Notes The following approved medication [...] October 20, 2021. Authorizing Provider: YOJANA MADDEN APRN.PODODERMATOLOGIST Patient phones requesting refills as follows: Requested [...] Rita Ayala RN documented in this encounter [facility] 09-19-2021 Miscellaneous Notes The following approved medication [...] Mahamed Nguyen RN documented in this encounter [facility] 09-19-2021 Miscellaneous Notes The following approved medication [...] three times daily. Authorizing Provider: YOJANA MADDEN APRN.PODODERMATOLOGIST Patient phones requesting refills as follows: Requested [...] Karena Guajardo RN documented in this encounter [facility] 08-15-2021 Instructions Yojana Madden APRN.PODODERMATOLOGIST - 08/15/2021 3:35 PM EDT Continue Flexeril [...] months in office documented in this encounter [facility] 08-15-2021 History of Presen t illness Narrative Patient was last seen by Dr. Vieira on 05/16/2021 for back pain. [facility] Last procedure: 02/24/2021 Right SNRT BLK 01/20/21 [...] UDS. 9) Followup in 3 months with WEB SERVICES PROFESSIONAL. Pain level:4/10 Denies any ED visits or [...] bilaterally, Negative Fabere sign bilaterally claim # [id number] DOI: 03/09/2008 Allowed diagnosis: S43.401A, S33.5XXA, S40.011A, S50.11XA, S30.0XA, S46.011A, M54.17, S43.431A, M25.811, M51.27, M75.41, M19.077, M48.061 documented in this encounter [facility] 07-26-2021 Miscellaneous Notes Patient phones requesting refills [...] Rita Ayala RN documented in this encounter [facility] documented as of this encounter (statuses as of 05/18/2022) [facility] History of Past illness Narrative* Problem Noted Date Diagnosed Date Resolved Date Tremors of nervous system 07/28/2020 Gastroesophageal reflux disease 05/12/2015 05/12/2015 Dysphagia 05/12/2015 05/12/2015 Smoking 04/14/2014 05/17/2022 documented as of this encounter (statuses as of 08/16/2022) [facility] History of Past illness Narrative* Problem Noted Date Diagnosed Date Resolved Date Tremors of nervous system 07/28/2020 Gastroesophageal reflux disease 05/12/2015 05/12/2015 Dysphagia 05/12/2015 05/12/2015 Smoking 04/14/2014 05/17/2022 documented as of this encounter (statuses as of 08/17/2022) [facility] History of Past illness Narrative* Problem Noted Date Diagnosed Date Resolved Date Tremors of nervous system 07/28/2020 Gastroesophageal reflux disease 05/12/2015 05/12/2015 Dysphagia 05/12/2015 05/12/2015 Smoking 04/14/2014 05/17/2022 documented as of this encounter (statuses as of 08/22/2022) [address]23-2021 History of Past illness Narrative* Problem Noted Date Diagnosed Date Resolved Date Tremors of nervous system 07/28/2020 Gastroesophageal reflux disease 05/12/2015 05/12/2015 Dysphagia 05/12/2015 05/12/2015 Smoking 04/14/2014 05/17/2022 documented as of this encounter (statuses as of 08/23/2022) [address]23-[address]21 History of Past illness Narrative* Problem Noted Date Diagnosed Date Resolved Date Tremors of nervous system 07/28/2020 Gastroesophageal reflux disease 05/12/2015 05/12/2015 Dysphagia 05/12/2015 05/12/2015 Smoking 04/14/2014 05/17/2022 documented as of this encounter (statuses as of 08/23/2022) [address]23-2021 History of Past illness Narrative* Problem Noted Date Diagnosed Date Resolved Date Tremors of nervous system 07/28/2020 Gastroesophageal reflux disease 05/12/2015 05/12/2015 Dysphagia 05/12/2015 05/12/2015 Smoking 04/14/2014 05/17/2022 documented as of this encounter (statuses as of 09/01/2022) [address]23-2021 History of Past illness Narrative* Problem Noted Date Diagnosed Date Resolved Date Tremors of nervous system 07/28/2020 Gastroesophageal reflux disease 05/12/2015 05/12/2015 Dysphagia 05/12/2015 05/12/2015 Smoking 04/14/2014 05/17/2022 documented as of this encounter (statuses as of 09/21/2022) [address]23-2021 History of Past illness Narrative* Problem Noted Date Diagnosed Date Resolved Date Tremors of nervous system 07/28/2020 Gastroesophageal reflux disease 05/12/2015 05/12/2015 Dysphagia 05/12/2015 05/12/2015 Smoking 04/14/2014 05/17/2022 documented as of this encounter (statuses as of 10/04/2022) [address]23-2021 History of Past illness Narrative* Problem Noted Date Diagnosed Date Resolved Date Tremors of nervous system 07/28/2020 Gastroesophageal reflux disease 05/12/2015 05/12/2015 Dysphagia 05/12/2015 05/12/2015 Smoking 04/14/2014 05/17/2022 documented as of this encounter (statuses as of 10/05/2022) [facility]2021 History of Past illness Narrative* Problem Noted Date Diagnosed Date Resolved Date Tremors of nervous system 07/28/2020 Gastroesophageal reflux disease 05/12/2015 05/12/2015 Dysphagia 05/12/2015 05/12/2015 Smoking 04/14/2014 05/17/2022 documented as of this encounter (statuses as of 10/20/2022) [facility] History of Past illness Narrative* Problem Noted Date Diagnosed Date Resolved Date Tremors of nervous system 07/28/2020 Gastroesophageal reflux disease 05/12/2015 05/12/2015 Dysphagia 05/12/2015 05/12/2015 Smoking 04/14/2014 05/17/2022 documented as of this encounter (statuses as of 11/11/2022) [facility] History of Past illness Narrative* Problem Noted Date Diagnosed Date Resolved Date Tremors of nervous system 07/28/2020 Gastroesophageal reflux disease 05/12/2015 05/12/2015 Dysphagia 05/12/2015 05/12/2015 Smoking 04/14/2014 05/17/2022 documented as of this encounter (statuses as of 11/11/2022) [facility] History of Past illness Narrative* Problem Noted Date Diagnosed Date Resolved Date Tremors of nervous system 07/28/2020 Gastroesophageal reflux disease 05/12/2015 05/12/2015 Dysphagia 05/12/2015 05/12/2015 Smoking 04/14/2014 05/17/2022 documented as of this encounter (statuses as of 12/10/2022) [facility] History of Past illness Narrative* Problem Noted Date Diagnosed Date Resolved Date Tremors of nervous system 07/28/2020 Gastroesophageal reflux disease 05/12/2015 05/12/2015 Dysphagia 05/12/2015 05/12/2015 Smoking 04/14/2014 05/17/2022 documented as of this encounter (statuses as of 12/18/2022) [facility] History of Past illness Narrative* Problem Noted Date Diagnosed Date Resolved Date Tremors of nervous system 07/28/2020 Gastroesophageal reflux disease 05/12/2015 05/12/2015 Dysphagia 05/12/2015 05/12/2015 Smoking 04/14/2014 05/17/2022 documented as of this encounter (statuses as of 01/15/2023) [facility] History of Past illness Narrative* Problem Noted Date Resolved Date Gastroesophageal reflux disease 05/12/2015 05/12/2015 Dysphagia 05/12/2015 05/12/2015 documented as of this encounter (statuses as of 07/27/2021) [facility] History of Past illness Narrative* Problem Noted Date Resolved Date Gastroesophageal reflux disease 05/12/2015 05/12/2015 Dysphagia 05/12/2015 05/12/2015 documented as of this encounter (statuses as of 08/15/2021) [facility] History of Past illness Narrative* Problem Noted Date Resolved Date Gastroesophageal reflux disease 05/12/2015 05/12/2015 Dysphagia 05/12/2015 05/12/2015 documented as of this encounter (statuses as of 08/15/2021) [facility] History of Past illness Narrative* Problem Noted Date Resolved Date Gastroesophageal reflux disease 05/12/2015 05/12/2015 Dysphagia 05/12/2015 05/12/2015 documented as of this encounter (statuses as of 08/21/2021) [facility] History of Past illness Narrative* Problem Noted Date Resolved Date Gastroesophageal reflux disease 05/12/2015 05/12/2015 Dysphagia 05/12/2015 05/12/2015 documented as of this encounter (statuses as of 09/19/2021) [facility] History of Past illness Narrative* Problem Noted Date Resolved Date Gastroesophageal reflux disease 05/12/2015 05/12/2015 Dysphagia 05/12/2015 05/12/2015 documented as of this encounter (statuses as of 09/19/2021) [facility] History of Past illness Narrative* Problem Noted Date Resolved Date Gastroesophageal reflux disease 05/12/2015 05/12/2015 Dysphagia 05/12/2015 05/12/2015 documented as of this encounter (statuses as of 10/19/2021) [address]06-2016 History of Past illness Narrative* Problem Noted Date Resolved Date Gastroesophageal reflux disease 05/12/2015 05/12/2015 Dysphagia 05/12/2015 05/12/2015 documented as of this encounter (statuses as of 10/24/2021) [address]06-2016 History of Past illness Narrative* Problem Noted Date Resolved Date Gastroesophageal reflux disease 05/12/2015 05/12/2015 Dysphagia 05/12/2015 05/12/2015 documented as of this encounter (statuses as of 11/03/2021) [address]06-2016 History of Past illness Narrative* Problem Noted Date Resolved Date Gastroesophageal reflux disease 05/12/2015 05/12/2015 Dysphagia 05/12/2015 05/12/2015 documented as of this encounter (statuses as of 11/15/2021) [address]06-2016 History of Past illness Narrative* Problem Noted Date Resolved Date Gastroesophageal reflux disease 05/12/2015 05/12/2015 Dysphagia 05/12/2015 05/12/2015 documented as of this encounter (statuses as of 12/12/2021) [address]06-2016 History of Past illness Narrative* Problem Noted Date Resolved Date Gastroesophageal reflux disease 05/12/2015 05/12/2015 Dysphagia 05/12/2015 05/12/2015 documented as of this encounter (statuses as of 12/19/2021) [address]06-2016 History of Past illness Narrative* Problem Noted Date Resolved Date Gastroesophageal reflux disease 05/12/2015 05/12/2015 Dysphagia 05/12/2015 05/12/2015 documented as of this encounter (statuses as of 01/16/2022) [address]06-2016 History of Past illness Narrative* Problem Noted Date Resolved Date Gastroesophageal reflux disease 05/12/2015 05/12/2015 Dysphagia 05/12/2015 05/12/2015 documented as of this encounter (statuses as of 02/15/2022) [address]06-2016 History of Past illness Narrative* Problem Noted Date Resolved Date Gastroesophageal reflux disease 05/12/2015 05/12/2015 Dysphagia 05/12/2015 05/12/2015 documented as of this encounter (statuses as of 03/23/2022) [facility] History of Past illness Narrative* Problem Noted Date Resolved Date Gastroesophageal reflux disease 05/12/2015 05/12/2015 Dysphagia 05/12/2015 05/12/2015 documented as of this encounter (statuses as of 04/23/2022) [facility] note* Diagnosis Chronic bilateral low back pain with bilateral sciatica- Primary [facility] [place] [facility] Diagnosis Sprain of right shoulder, unspecified [...] without neurogenic claudication [facility] Diagnosis Chronic bilateral low back pain with bilateral sciatica Spinal stenosis, lumbar region, without neurogenic claudication documented in this encounter [facility] note* Diagnosis Chronic bilateral low back pain with bilateral sciatica Spinal stenosis, lumbar region, without neurogenic claudication Lumbar radiculopathy Thoracic or lumbosacral neuritis or radiculitis, unspecified [facility] [place] [facility]* Diagnosis Radiculopathy, lumbar region- Primary Thoracic or lumbosacral neuritis or radiculitis, unspecified Radiculopathy, lumbar region Thoracic or lumbosacral neuritis or radiculitis, unspecified [facility] [place] [facility]* Diagnosis Spinal stenosis, lumbar region, without neurogenic claudication Chronic bilateral low back pain with bilateral sciatica Radiculopathy, lumbar region Thoracic or lumbosacral neuritis or radiculitis, unspecified [facility] [place] [facility]* Diagnosis Spinal stenosis, lumbar region, without [...] radiculitis, unspecified [facility] [place] [facility] Diagnosis Spinal stenosis, lumbar region, without neurogenic claudication Chronic bilateral low back pain with bilateral sciatica [facility] [place] [facility] Diagnosis Spinal stenosis, lumbar region, without neurogenic claudication Chronic bilateral low back pain with bilateral sciatica [facility] [place] [facility] Diagnosis Spinal stenosis, lumbar region, without neurogenic claudication Chronic bilateral low back pain with bilateral sciatica 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 Lumbar sprain, sequela High risk medication use Encounter for long-term (current) use of other medications [facility] [place] [facility]* Diagnosis Lumbar sprain, sequela- Primary Spinal stenosis, lumbar region, without neurogenic claudication Chronic bilateral low back pain with bilateral sciatica High risk medication use Encounter for long-term (current) use of other medications [facility] [place] [facility] Diagnosis Spinal stenosis, lumbar region, without neurogenic claudication Chronic bilateral low back pain with bilateral sciatica [facility] Diagnosis Spinal stenosis, lumbar region, without neurogenic claudication Chronic bilateral low back pain with bilateral sciatica [facility] [place] [facility] Diagnosis Lumbar sprain, sequela- Primary Strain of tendon of right rotator cuff, sequela Spinal stenosis, lumbar region, without neurogenic claudication Chronic bilateral low back pain with bilateral sciatica Type 2 diabetes mellitus without complication, with long-term current use of insulin (HCC) documented [facility] [place] [facility]* Diagnosis Spinal stenosis, lumbar region, without neurogenic claudication [facility] Spinal stenosis, lumbar region, without neurogenic claudication documented in this encounter [facility] Summary Purpose Family History No Family History Records FoundNo Family History Records FoundNo Family History Records FoundNo Family History Records FoundNo Family History Records Found Advance Directives No Advanced Directives Records FoundDocuments on File Type Date Recorded 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 Gluing Expl anation Advance Directive(s) 05/12/2015 11:59 AM Advance Directive(s) 04/30/2015 10:47 AM Additional Source Comments INFORMATION SOURCE (unrecogn ized section and content) DATE CREATED AUTHOR AUTHOR'S ORGANIZ ATION 10/08/2020 [facility] DATE CREATED AUTHOR AUTHOR'S ORGANIZ ATION 05/17/2021 [facility] [place] DATE CREATED AUTHOR AUTHOR'S ORGANIZ ATION 09/07/2022 [facility] DATE CREATED AUTHOR AUTHOR'S ORGANIZ ATION 01/20/2023 [facility] Source Comments (unrecognize d section and content) In the event this informatio n is protected by the Federal Confidentiality of Alcohol and Drug Abuse Patient Records regulations: The Federal rules restrict any use of the information to criminally investigate or prosecute any alcohol or drug abuse patient.[facility] the event this information is protected by the Federal Confidentiality of Alcohol and Drug Abuse Patient Records regulations: The Federal rules restrict any use of the information to criminally investigate or prosecute any alcohol or drug abuse patient.[facility] the event this information is protected by the Federal Confidentiality of Alcohol and Drug Abuse Patient Records regulations: The Federal rules restrict any use of the information to criminally investigate or prosecute any alcohol or drug abuse patient.[facility] the event this information is protected by the Federal Confidentiality of Alcohol and Drug Abuse Patient Records regulations: The Federal rules restrict any use of the information to criminally investigate or prosecute any alcohol or drug abuse patient.[facility] CenterIn the event this information is protected by the Federal Confidentiality of Alcohol and Drug Abuse Patient Records regulations: The Federal rules restrict any use of the information to criminally investigate or prosecute any alcohol or drug abuse patient.[facility] CenterIn the event this information is protected by the Federal Confidentiality of Alcohol and Drug Abuse Patient Records regulations: The Federal rules restrict any use of the information to criminally investigate or prosecute any alcohol or drug abuse patient.[facility] CenterIn the event this information is protected by the Federal Confidentiality of Alcohol and Drug Abuse Patient Records regulations: The Federal rules restrict any use of the information to criminally investigate or prosecute any alcohol or drug abuse patient.[facility] CenterIn the event this information is protected by the Federal Confidentiality of Alcohol and Drug Abuse Patient Records regulations: The Federal rules restrict any use of the information to criminally investigate or prosecute any alcohol or drug abuse patient.[facility] CenterIn the event this information is protected by the Federal Confidentiality of Alcohol and Drug Abuse Patient Records regulations: The Federal rules restrict any use of the information to criminally investigate or prosecute any alcohol or drug abuse patient.[facility] CenterIn the event this information is protected by the Federal Confidentiality of Alcohol and Drug Abuse Patient Records regulations: The Federal rules restrict any use of the information to criminally investigate or prosecute any alcohol or drug abuse patient.[facility] CenterIn the event this information is protected by the Federal Confidentiality of Alcohol and Drug Abuse Patient Records regulations: The Federal rules restrict any use of the information to criminally investigate or prosecute any alcohol or drug abuse patient.[facility] CenterIn the event this information is protected by the Federal Confidentiality of Alcohol and Drug Abuse Patient Records regulations: The Federal rules restrict any use of the information to criminally investigate or prosecute any alcohol or drug abuse patient.[facility] CenterIn the event this information is protected by the Federal Confidentiality of Alcohol and Drug Abuse Patient Records regulations: The Federal rules restrict any use of the information to criminally investigate or prosecute any alcohol or drug abuse patient.[facility] CenterIn the event this information is protected by the Federal Confidentiality of Alcohol and Drug Abuse Patient Records regulations: The Federal rules restrict any use of the information to criminally investigate or prosecute any alcohol or drug abuse patient.[facility] CenterIn the event this information is protected by the Federal Confidentiality of Alcohol and Drug Abuse Patient Records regulations: The Federal rules restrict any use of the information to criminally investigate or prosecute any alcohol or drug abuse patient.[facility] CenterIn the event this information is protected by the Federal Confidentiality of Alcohol and Drug Abuse Patient Records regulations: The Federal rules restrict any use of the information to criminally investigate or prosecute any alcohol or drug abuse patient.[facility] CenterIn the event this information is protected by the Federal Confidentiality of Alcohol and Drug Abuse Patient Records regulations: The Federal rules restrict any use of the information to criminally investigate or prosecute any alcohol or drug abuse patient.[facility] CenterIn the event this information is protected by the Federal Confidentiality of Alcohol and Drug Abuse Patient Records regulations: The Federal rules restrict any use of the information to criminally investigate or prosecute any alcohol or drug abuse patient.[facility] CenterIn the event this information is protected by the Federal Confidentiality of Alcohol and Drug Abuse Patient Records regulations: The Federal rules restrict any use of the information to criminally investigate or prosecute any alcohol or drug abuse patient.[facility] CenterIn the event this information is protected by the Federal Confidentiality of Alcohol and Drug Abuse Patient Records regulations: The Federal rules restrict any use of the information to criminally investigate or prosecute any alcohol or drug abuse patient.[facility] CenterIn the event this information is protected by the Federal Confidentiality of Alcohol and Drug Abuse Patient Records regulations: The Federal rules restrict any use of the information to criminally investigate or prosecute any alcohol or drug abuse patient.[facility] CenterIn the event this information is protected by the Federal Confidentiality of Alcohol and Drug Abuse Patient Records regulations: The Federal rules restrict any use of the information to criminally investigate or prosecute any alcohol or drug abuse patient.[facility] CenterIn the event this information is protected by the Federal Confidentiality of Alcohol and Drug Abuse Patient Records regulations: The Federal rules restrict any use of the information to criminally investigate or prosecute any alcohol or drug abuse patient.[facility] CenterIn the event this information is protected by the Federal Confidentiality of Alcohol and Drug Abuse Patient Records regulations: The Federal rules restrict any use of the information to criminally investigate or prosecute any alcohol or drug abuse patient.[facility] CenterIn the event this information is protected by the Federal Confidentiality of Alcohol and Drug Abuse Patient Records regulations: The Federal rules restrict any use of the information to criminally investigate or prosecute any alcohol or drug abuse patient.[facility] CenterIn the event this information is protected by the Federal Confidentiality of Alcohol and Drug Abuse Patient Records regulations: The Federal rules restrict any use of the information to criminally investigate or prosecute any alcohol or drug abuse patient.[facility] the event this information is protected by the Federal Confidentiality of Alcohol and Drug Abuse Patient Records regulations: The Federal rules restrict any use of the information to criminally investigate or prosecute any alcohol or drug abuse patient.[facility] CenterIn the event this information is protected by the Federal Confidentiality of Alcohol and Drug Abuse Patient Records regulations: The Federal rules restrict any use of the information to criminally investigate or prosecute any alcohol or drug abuse patient.[facility] CenterIn the event this information is protected by the Federal Confidentiality of Alcohol and Drug Abuse Patient Records regulations: The Federal rules restrict any use of the information to criminally investigate or prosecute any alcohol or drug abuse patient.[facility] CenterIn the event this information is protected by the Federal Confidentiality of Alcohol and Drug Abuse Patient Records regulations: The Federal rules restrict any use of the information to criminally investigate or prosecute any alcohol or drug abuse patient.[facility] CenterIn the event this information is protected by the Federal Confidentiality of Alcohol and Drug Abuse Patient Records regulations: The Federal rules restrict any use of the information to criminally investigate or prosecute any alcohol or drug abuse patient.[facility] CenterIn the event this information is protected by the Federal Confidentiality of Alcohol and Drug Abuse Patient Records regulations: The Federal rules restrict any use of the information to criminally investigate or prosecute any alcohol or drug abuse patient.[facility] CenterIn the event this information is protected by the Federal Confidentiality of Alcohol and Drug Abuse Patient Records regulations: The Federal rules restrict any use of the information to criminally investigate or prosecute any alcohol or drug abuse patient.[facility] CenterIn the event this information is protected by the Federal Confidentiality of Alcohol and Drug Abuse Patient Records regulations: The Federal rules restrict any use of the information to criminally investigate or prosecute any alcohol or drug abuse patient.[facility] CenterIn the event this information is protected by the Federal Confidentiality of Alcohol and Drug Abuse Patient Records regulations: The Federal rules restrict any use of the information to criminally investigate or prosecute any alcohol or drug abuse patient.[facility] Reason for Visit (unrecogniz ed section and content) Specialty Diagnoses / Procedures Referred By Scarlett moses Referred To Contact PAIN MANAGEMENT Diagnoses Unspecified sprain of right shoulder joint, initial encounter S43.401A, S33.5XXA, S40.011A, S50.11XA, S30.0XA, S46.011A, M54.17, S43.431A, M25.811, M51.27, M75.41, M19.077, M48.061 Procedures EST PATIENT VISIT LEVEL 1 Yojana Madden APRN.PODODERMATOLOGIST [address] [address] [facility] [address] [place] [address] Referral ID Status Reason Start Date Expiration Date Visits Re quested Visits Authorized [id number] Closed 05/17/2022 08/15/2022 1 1 Specialty Diagnoses / Procedures Referred By Scarlett moses Referred To Contact Internal Medicine / PAIN MANAGEMENT Diagnoses 3 Month Follow Up Procedures REFERRAL TO [facility] FINANCIAL COUNSELOR EST PATIENT Self Yojana Madden, SHAKER SCREEN OPERATOR.PODODERMATOLOGIST [address] [place] [address] Referral ID Status Reason Start Date Expiration Date V isits Requested Visits Authorized [id number] Closed Financial Clearance Not Required 02/15/2022 05/14/2022 [...] follow up Procedures EST PATIENT Yojana Madden, SHAKER SCREEN OPERATOR.PODODERMATOLOGIST [address] [place] [address] Yojana Madden, SHAKER SCREEN OPERATOR.PODODERMATOLOGIST [address] [place] [address] Referral ID Status Reason Start Date Expiration Date Visits Requested Visits Authorized [id number] Pending Review Patient Cleared - Admin/Chair man/Directo [...] Procedures REFERRAL TO [facility] FINANCIAL COUNSELOR UDS 19806, 56997, 49582, [id number] Yojana Madden, SHAKER SCREEN OPERATOR.PODODERMATOLOGIST [address] [place] [address] [facility] [address] [place] [address] Referral ID Status Reason Start Date Expiration Date Visits Re quested Visits Authorized [id number] Closed 08/16/2022 11/14/2022 1 1 Reason Comments Radiology US Reason Onset Date Comments Refill Request 12/16/2022 Reason Onset Date Comments Refill Request 01/14/2023 Care Teams (unrecognized sec tion and content) Geophysical Party Chief Relationship Specialty Start Date End Date Janusz Elaine CNP [address] [place] [address] PCP - General Internal Medicine 03/28/21 Geophysical Party Chief Relationship Specialty Start Date End Date Janusz Elaine CNP [address] [place] [address] PCP - General Internal Medicine 03/28/21 Geophysical Party Chief Relationship Specialty Start Date End Date Janusz Elaine CNP [address] [place] [address] PCP - General Internal Medicine 03/28/21 Geophysical Party Chief Relationship Specialty Start Date End Date Janusz Elaine CNP [address] [place] [address] PCP - General Internal Medicine 03/28/21 Geophysical Party Chief Relationship Specialty Start Date End Date Janusz Elaine CNP [address] [place] [address] PCP - General Internal Medicine 03/28/21 Geophysical Party Chief Relationship Specialty Start Date End Date Janusz Elaine, DECISION SCIENCE ANALYST [address] [facility] [place] [address] PCP - General Internal Medicine 03/28/21 Geophysical Party Chief Relationship Specialty Start Date End Date Janusz Elaine, DECISION SCIENCE ANALYST [address] [place] [address] PCP - General Internal Medicine 03/28/21 Geophysical Party Chief Relationship Specialty Start Date End Date Janusz Elaine, DECISION SCIENCE ANALYST [address] [place] [address] PCP - General Internal Medicine 03/28/21 Geophysical Party Chief Relationship Specialty Start Date End Date Mahamed Jauregui NP [address] [facility] [place] [place] [address] PCP - General Family Medicine 12/02/21 Geophysical Party Chief Relationship Specialty Start Date End Date Mahamed Jauregui NP [address] [facility] [place] [place] [address] PCP - General Family Medicine 12/02/21 Geophysical Party Chief Relationship Specialty Start Date End Date Mahamed Jauregui NP [address] [facility] [place] [place] [address] PCP - General Family Medicine 12/02/21 Geophysical Party Chief Relationship Specialty Start Date End Date Mahamed Jauregui NP [address] [facility] [place] [place] [address] PCP - General Family Medicine 12/02/21 Geophysical Party Chief Relationship Specialty Start Date End Date Mahamed Jauregui NP [address] [facility] [place] [place] [address] PCP - General Family Medicine 12/02/21 Geophysical Party Chief Relationship Specialty Start Date End Date Mahamed Jauregui NP [address] [place] [address] PCP - General Family Medicine 12/02/21 Geophysical Party Chief Relationship Specialty Start Date End Date Mahamed Jauregui NP [address] [place] [address] PCP - General Family Medicine 12/02/21 Geophysical Party Chief Relationship Specialty Start Date End Date Mahamed Jauregui NP [address] [place] [address] PCP - General Family Medicine 12/02/21 Geophysical Party Chief Relationship Specialty Start Date End Date Mahamed Jauregui NP [address] [place] [address] PCP - General Family Medicine 12/02/21 Geophysical Party Chief Relationship Specialty Start Date End Date Mahamed Jauregui NP [address] [place] [address] PCP - General Family Medicine 12/02/21 Geophysical Party Chief Relationship Specialty Start Date End Date Mahamed Jauregui NP [address] [place] [address] PCP - General Family Medicine 12/02/21 Geophysical Party Chief Relationship Specialty Start Date End Date Mahamed Jauregui NP PCP - General Family Medicine 12/02/21 Geophysical Party Chief Relationship Specialty Start Date End Date Mahamed Jauregui NP PCP - General Family Medicine 12/02/21 Geophysical Party Chief Relationship Specialty Start Date End Date Mahamed Jauregui NP PCP - General Family Medicine 12/02/21 Geophysical Party Chief Relationship Specialty Start Date End Date Mahamed Jauregui NP PCP - General Family Medicine 12/02/21 Geophysical Party Chief Relationship Specialty Start Date End Date Mahmaed Jauregui NP PCP - General Family Medicine 12/02/21 Geophysical Party Chief Relationship Specialty Start Date End Date Mahamed Jauregui NP PCP - General Family Medicine 12/02/21 Geophysical Party Chief Relationship Specialty Start Date End Date Mahamed Jauregui NP PCP - General Family Medicine 12/02/21 Geophysical Party Chief Relationship Specialty Start Date End Date Mahamed Jauregui NP PCP - General Family Medicine 12/02/21 Geophysical Party Chief Relationship Specialty Start Date End Date Mahamed [...] BE BASED ON THE PRIMARY CLINICAL RECORDS. [employer] [facility]. provides no warranty or guarantee of the accuracy or completeness of information in this document.
== END 2023-02-02 09:49 | disposition home or self-care (01) ==
LOC: MEDOUTP 09:48
PROVIDERS: Referring Provider Internal Medicine Endocrinology, Diabetes & Metabolism; Visit Provider Internal Medicine Endocrinology, Diabetes & Metabolism
DX: M81.0 Age-related osteoporosis without current pathological fracture (principal)
CPT/HCPCS: 96372; J0897

== ENCOUNTER → 2023-02-02 | Outpatient (CLI) | payer MEDICARE, SELFPAY ==
--- OUTSIDE RECORDS SUMMARY | 2023-02-02 09:55 | XMS RPT_ITS | CCD ---
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 SPINE SURGERY HX TOOTH EXTRACTION TOTAL ABDOMINAL HYSTERECT W/WO RMVL TUBE OVARY 02/05/2003 Hysterectomy, CURTIS BSO FAMILY HISTORY Problem Relation Age of Onset Heart Mother Stroke Mother Diabetes Mother Heart Father 55 of heart attack other (agent orange) Father Tuberculosis Father Heart Sister 53 of heart attack Heart Sister 52 of heart attack Diabetes Sister Obesity Sister Diabetes Sister other (htn) Sister other (stomach issues) Sister Diabetes Brother other (back issues) Brother other (htn) Brother Social History Tobacco Use Smoking status: Former Packs/day: 1.00 Years: 30.00 Additional pack years: 0.00 Total pack years: 30.00 Types: Cigarettes Smokeless tobacco: Never Substance Use Topics Alcohol use: No Drug use: No Work Status: disabled Allergies: Bee Venom Protein (* Other: See Comments Current Outpatient Medications Medication Sig cyclobenzaprine (FLEXERIL) 10 mg tablet Take 1 tablet by mouth three times daily. oxyCODONE myristate (XTAMPZA ER) 13.5 mg CSpT Take 1 capsule by mouth every 12 hours for 30 days. Do not start before October 21, 2022. oxyCODONE-acetaminophen (PERCOCET) 5-325 mg tablet Take 1 tablet by mouth three times daily as needed for pain for up to 30 days. Do not start before October 21, 2022. pregabalin (LYRICA) 100 mg capsule Take 1 capsule by mouth three times daily for 30 days. Do not start before October 21, 2022. nystatin (MYCOSTATIN) cream Zinc Sulfate 25 mg zinc (110 mg) tab Take by mouth. ascorbic acid, vitamin C, (VITAMIN C) 500 mg tablet Take by mouth. cyanocobalamin, vitamin B-12, 5,000 mcg subl denosumab (PROLIA) 60 mg/mL Denosumab (Prolia) 60 mg/mL syringe Active 60 MG SC every 6 months July 27, 2021 12:00am docusate sodium (COLACE) 100 mg capsule Take by mouth. EPINEPHrine (EPIPEN) 0.3 mg/0.3 mL auto-injector inject 0.3 milliliters INTO MUSCLE OF OUTER THIGH ONCE WITH ONSET OF ALLERGIC REACTION famotidine (PEPCID) 20 mg tablet Take 20 mg by mouth twice daily as needed. [employer] JUSTICE 2 SENSOR kit apply 1 SENSOR to back OF UPPER ARM REMOVE AND REPLACE every 14 d... (REFER TO PRESCRIPTION NOTES). fluticasone (FLONASE) 50 mcg/actuation nasal spray fluticasone propionate 50 mcg/actuation nasal spray,suspension instill 1 spray into each nostril twice a day glimepiride (AMARYL) 4 mg tablet Take 4 mg by mouth once daily. lansoprazole (PREVACID) 30 mg capsule metFORMIN (GLUCOPHAGE) 1,000 mg tablet Take 1,000 mg by mouth twice daily. multivitamin-ferrous fumarate-folic acid (SPECTRAVITE ULTRA WOMEN) oxybutynin XL (DITROPAN XL) 5 mg 24 hr tablet Take 5 mg by mouth once daily. DROPLET PEN NEEDLE 32 gauge x 02/08 use 1 NEEDLE to inject MEDICATION subcutaneously once daily pravastatin (PRAVACHOL) 80 mg tablet Take 80 mg by mouth. VITAMIN B COMPLEX ORAL Take by mouth. Zinc Sulfate 25 mg zinc (110 mg) tab Take by mouth. Cetirizine (ZYRTEC) 10 mg cap Take 10 mg by mouth once daily. losartan (COZAAR) 50 mg tablet Take 0.5 tablets by mouth once daily. insulin glargine (LANTUS SOLOSTAR U-100 INSULIN) 100 unit/mL (3 mL) Inject 40 Units subcutaneously daily at bedtime. DEXLANSOPRAZOLE (DEXILANT ORAL) Take by mouth. albuterol HFA (PROVENTIL HFA, VENTOLIN HFA) 90 mcg/actuation inhaler Inhale 2 Puffs as instructed. budesonide-formoterol (SYMBICORT) 160-4.5 mcg/actuation inhaler Inhale 2 Puffs as instructed twice daily. Albuterol Sulfate 0.63 mg/3 mL nebulizer solution Use 1 Ampule via nebulizer every 6 hours as needed. Cholecalciferol, Vitamin D3, 25 mcg (1,000 unit) cap Take 1,000 Units by mouth once daily. aspirin, enteric coated 81 mg EC tablet Take 81 mg by mouth once daily. MULTIVIT &MINERALS/FERROUS FUM (MULTI VITAMIN ORAL) Take 1 tablet by mouth. polyethylene glycol 3350 17 gram/dose powder Take by mouth 3 times a WEEK. meloxicam (MOBIC) 7.5 mg tablet Take 1 tablet by mouth twice daily. With food. No current facility-administered medications for this visit. PHYSICAL EXAMINATION: Vitals: BP 113/62 Pulse 85 Resp 18 Ht 5' 0 (1.52m) Wt 163 lb (73.9kg) SpO2 98% BMI 31.83 kg/(m^2). GENERAL: General appearance: Well appearing, in no acute distress, alert. No antalgic gait, no cane or walker noted Psych: Mood and affect appropriate. Skin: Skin color, texture, turgor normal, no rashes or lesions. Pulm: no conversational shortness of breath or cough Musculoskeletal: Minimal difficulty with ascend and descend from sitting position.Positive tenderness to palpation in the lumbar paraspinal muscles and gluteal without spasms. Deferred toe and heel raise Deferred knee bend due to balance. Lumbar range of motion with guarded stiff movements throughout Strength is 4/5 BLE positive straight leg raise from sitting position bilaterally.Negative Fabere sign bilaterally ASSESSMENT: Lumbar sprain, sequela (primary encounter diagnosis) Chronic bilateral low back pain with bilateral sciatica Strain of tendon of right rotator cuff, sequela Allowed diagnosis: S43.401A, S33.5XXA, S40.011A, S50.11XA, S30.0XA, S46.011A, M54.17, S43.431A, M25.811, M51.27, M75.41, M19.077, M48.061 Patient is stable. Chronic pain is persistent. Medications are helping Estela Kenney to have an improved quality of life. Patient compliance with Opioid Contract: patient is compliant PDMP website checked and validated. [place] report reviewed on November 07, 2022 by Vijaya Matthews and is consistent with the patients medical history and medication intake. PLAN: The patient understands the goal of our treatment is a reduction in pain and/or an improved level of functioning with activities of daily living. If at any time the patient does not feel the medications are helping them to achieve these goals, the medications may be discontinued. The patient reports a reduction in pain and/or an improved level of functioning with activities of daily living, denies any significant adverse effects, is compliant with the pain management agreement and there are no signs of medication misuse, abuse or diversion; therefore, the medications will be continued. The documentation for this encounter was entered by Vijaya Matthews director of medical services for Dr. Lina Vieira on November 07, 2022 I, Dr. Lina Vieira, personally performed the services described in this documentation. All medical record entries made by the scribe were at my direction and in my presence. I have reviewed the chart and discharge instructions and agree that the record reflects my personal performance and is accurate and complete. Electronically Signed: Dr. Vieira. November 07, 2022. documented in this encounter [facility] 10-19-2022 Miscellaneous Notes The following approved medication requests have been transmitted electronically. Requested Prescriptions Signed Prescriptions Disp Refills cyclobenzaprine (FLEXERIL) 10 mg tablet 90 tablet 0 Sig: Take 1 tablet by mouth three times daily. Authorizing Provider: YOEL PADGETT oxyCODONE myristate (XTAMPZA ER) 13.5 mg CSpT 60 Each 0 Sig: Take 1 capsule by mouth every 12 hours for 30 days. Do not start before October 21, 2022. Authorizing Provider: YOEL PADGETT oxyCODONE-acetaminophen (PERCOCET) 5-325 mg tablet 90 tablet 0 Sig: Take 1 tablet by mouth three times daily as needed for pain for up to 30 days. Do not start before October 21, 2022. Authorizing Provider: YOEL PADGETT pregabalin (LYRICA) 100 mg capsule 90 capsule 0 Sig: Take 1 capsule by mouth three times daily for 30 days. Do not start before October 21, 2022. Authorizing Provider: YOEL PADGETT APRN.CNP Patient phones requesting refills as follows: Requested Prescriptions Pending Prescriptions Disp Refills cyclobenzaprine (FLEXERIL) 10 mg tablet 90 tablet 0 Sig: Take 1 tablet by mouth three times daily. oxyCODONE myristate (XTAMPZA ER) 13.5 mg CSpT 60 Each 0 Sig: Take 1 capsule by mouth every 12 hours for 30 days. oxyCODONE-acetaminophen (PERCOCET) 5-325 mg tablet 90 tablet 0 Sig: Take 1 tablet by mouth three times daily as needed for pain for up to 30 days. pregabalin (LYRICA) 100 mg capsule 90 capsule 0 Sig: Take 1 capsule by mouth three times daily for 30 days. Last UDS: No results found for: SUMM @FLOW([id number])@ No results found for: SUMM No results found for: SUMMAR Please review and advise. Rita Ayala RN documented in this encounter [facility] 10-05-2022 Miscellaneous Notes Summary: Health Maintenance Review Items addressed in this encounter: Health Maintenance Review Able to close encounter. Candace Ely MA October 05, 2022 6:43 AM 6:43 AM documented in this encounter [facility] 10-04-2022 Miscellaneous Notes Summary: Follow up Appt changed Items addressed in this encounter: Health Maintenance Review Follow up appt changed Able to close encounter. Candace Ely MA October 04, 2022 2:49 PM 2:49 PM documented in this encounter [facility] 09-20-2022 Miscellaneous Notes The following approved medication requests have been transmitted electronically. Requested Prescriptions Signed Prescriptions Disp Refills cyclobenzaprine (FLEXERIL) 10 mg tablet 90 tablet 0 Sig: Take 1 tablet by mouth three times daily. Authorizing Provider: YOJANA MADDEN meloxicam (MOBIC) 7.5 mg tablet 60 tablet 0 Sig: Take 1 tablet by mouth twice daily. With food. Authorizing Provider: YOJANA MADDEN oxyCODONE myristate (XTAMPZA ER) 13.5 mg CSpT 60 Each 0 Sig: Take 1 capsule by mouth every 12 hours for 30 days. Do not start before September 21, 2022. Authorizing Provider: YOJANA MADDEN oxyCODONE-acetaminophen (PERCOCET) 5-325 mg tablet 90 tablet 0 Sig: Take 1 tablet by mouth three times daily as needed for pain for up to 30 days. Do not start before September 21, 2022. Authorizing Provider: YOJANA MADDEN pregabalin (LYRICA) 100 mg capsule 90 capsule 0 Sig: Take 1 capsule by mouth three times daily for 30 days. Do not start before September 21, 2022. Authorizing Provider: YOJANA MADDEN APRN.ADMINISTRATIVE CLERK Patient phones requesting refills as follows: Requested Prescriptions Pending Prescriptions Disp Refills cyclobenzaprine (FLEXERIL) 10 mg tablet 90 tablet 0 Sig: Take 1 tablet by mouth three times daily. meloxicam (MOBIC) 7.5 mg tablet 60 tablet 0 Sig: Take 1 tablet by mouth twice daily. With food. oxyCODONE myristate (XTAMPZA ER) 13.5 mg CSpT 60 Each 0 Sig: Take 1 capsule by mouth every 12 hours for 30 days. oxyCODONE-acetaminophen (PERCOCET) 5-325 mg tablet 90 tablet 0 Sig: Take 1 tablet by mouth three times daily as needed for pain for up to 30 days. pregabalin (LYRICA) 100 mg capsule 90 capsule 0 Sig: Take 1 capsule by mouth three times daily for 30 days. Last UDS: No results found for: SUMM @FLOW([id number])@ No results found for: SUMM No results found for: SUMMAR Please review and advise. Rita Ayala RN documented in this encounter [facility] 09-05-2022 Note HNO ID: [id number] Author: Mahamed Perez RDMS Service: ? Author Type: Real Estate Rep Type: Progress Notes Filed: 09/05/2022 2:14 PM Note Text: Radiology Service Progress Note PATIENT NAME: Estela Kenney DATE OF SERVICE: September 05, 2022 TIME: 2:14 PM PATIENT IDENTITY VERIFICATION COMPLETED USING TWO (2) IDENTIFIERS: Name and Date of confirmed by patient verbally. FALL SCREENING: Has the patient had 2 falls in the last year or 1 fall with injury or currently using an Ambulatory Assistive Device (Walker, Cane, Wheelchair, Crutches, etc.)? No PATIENT GENDER DATA: Female. status: : No status: NO. PATIENT RELEVANT IMPLANT DATA REVIEWED: Not Applicable RADIOLOGY DEPARTMENT: Ultrasound PERIPHERAL IV DATA: Not applicable SIGNED BY: Mahamed Perez RDMS RVT September 05, 2022 2:14 PM [facility] 09-05-2022 History of Presen t illness Narrative Radiology Service Progress Note PATIENT NAME: Estela Kenney DATE OF SERVICE: September 05, 2022 TIME: 2:14 PM PATIENT IDENTITY VERIFICATION COMPLETED USING TWO (2) IDENTIFIERS: Name and Date of confirmed by patient verbally. FALL SCREENING: Has the patient had 2 falls in the last year or 1 fall with injury or currently using an Ambulatory Assistive Device (Walker, Cane, Wheelchair, Crutches, etc.)? No PATIENT GENDER DATA: Female. status: : No status: NO. PATIENT RELEVANT IMPLANT DATA REVIEWED: Not Applicable RADIOLOGY DEPARTMENT: Ultrasound PERIPHERAL IV DATA: Not applicable SIGNED BY: Mahamed Perez RDMS RVPatricio September 05, 2022 2:14 PM documented in this encounter [facility] 09-01-2022 Miscellaneous Notes I sent an e-mail regarding the status of the C-9 for left L3-S1 SNRB. Graciela September 01, 2022 11:00 AM documented in this encounter [facility] 08-22-2022 Miscellaneous Notes Xtampnegrito sharp approved through [facility] Approved 08/22/22-08/23/23 I indexed approval letter Keri Aguiar MA August 22, 2022 5:18 PM documented in this encounter [facility] 08-22-2022 Miscellaneous Notes Xtampza er pa sent to [facility] through [employer] with 2 ov notes,soapp,uds, and contract. Keri Aguiar MA August 22, 2022 3:50 PM documented in this encounter [facility] 08-15-2022 Note HNO ID: [id number] Author: Yojana Madden APRN.ADMINISTRATIVE CLERK Service: ? Author Type: Clinical Nurse Specialist Type: Progress Notes Filed: 08/15/2022 3:37 PM Note Text: SUBJECTIVE: Estela Kenney presents to [facility] for a follow-up appointment for back pain [facility] Last seen by me on 05/17/22 with following plan of care: Continue Flexeril PRN Continue Xtampza and percocet These medications helps patient perform ADL, interact with family and friends.No misuse or aberrant behaviors detected. OAARS reviewed and consistent UDS reviewed and consistent Sumbit C9 and order UDS Continue lyrica 100mg TID Continue Mobic Followup in 3 months in office Last procedure:02/16/22 left L3-S1 SNRT BLK 75% relief Pain level:05/15 Denies any ED visits or hospitalizations since last office visit Reports pain worse with everything Reports pain better ice, heating pad, and medications. Describes pain in lower back as constant ache that radiates to buttock, hip and legs. Greater on left States has numbness/tingling in legs. Greater on left States she fell off a ladder States blood sugars 120-140's REVIEW OF SYSTEMS: GENERAL: positive 33# intentional weight loss, denies malaise or fevers. HEENT: Negative for frequent or significant headaches. RESPIRATORY: Negative for cough, wheezing or shortness of breath. CARDIOVASCULAR: Negative for chest pain, leg swelling or palpitations. GI: Negative for abdominal discomfort, blood in stools or black stools or change in bowel habits. Takes miralax every other day for BM : denies issues Past Medical History: PAST MEDICAL HISTORY Diagnosis Date Anxiety COPD (chronic obstructive pulmonary disease) (HCC) Depression Diabetes (HCC) GERD (gastroesophageal reflux disease) Glaucoma Hypertension Joint pain Kidney stone LBP (low back pain) Neck pain Obesity Restless leg syndrome Shingles Smoking Past Surgical History: PAST SURGICAL HISTORY Procedure Laterality Date ANESTH, SECTION APPENDECTOMY as child APPENDECTOMY HX DELIVERY ONLY 02/06/1980 , low transverse CHOLECYSTECTOMY 02/05/1999 Cholecystectomy laparoscopic ESOPHAGOGASTRODUODENOSCOPY TRANSORAL DIAGNOSTIC 05/12/2015 EGD HYSTERECTOMY HX LITHOTRIPSY / 1 SIDE NECK SURGERY HX OPEN REPAIR OF ROTATOR CUFF ACUTE 2008, 2012 Rotator cuff repair, right X2 ORTHOPEDICS SURGERY HX PAST SURGICAL HISTORY OF 02/06/2012 lumbar fusion L5-S1 PAST SURGICAL HISTORY OF 02/05/2013 lumbar pain injections. REVISE MEDIAN N/CARPAL TUNNEL SURG and trigger finger SPINE SURGERY HX TOOTH EXTRACTION TOTAL ABDOMINAL HYSTERECT W/WO RMVL TUBE OVARY 02/05/2003 Hysterectomy, CURTIS BSO Family History: FAMILY HISTORY Problem Relation Age of Onset Heart Mother Stroke Mother Diabetes Mother Heart Father 55 of heart attack other (agent orange) Father Tuberculosis Father Heart Sister 53 of heart attack Heart Sister 52 of heart attack Diabetes Sister Obesity Sister Diabetes Sister other (htn) Sister other (stomach issues) Sister Diabetes Brother other (back issues) Brother other (htn) Brother Social History: Social History Tobacco Use Smoking status: Former Packs/day: 1.00 Years: 30.00 Total pack years: 30.00 Types: Cigarettes Smokeless tobacco: Never Substance Use Topics Alcohol use: No Drug use: No OBJECTIVE: BP 148/71 Pulse 78 Resp 19 Ht 5' 0 (1.52m) Wt 159 lb (72.1kg) SpO2 97% BMI 31.05 kg/(m2). PHYSICAL EXAMINATION: General appearance: Well appearing, in no acute distress, alert. Psych: Mood and affect appropriate. Skin: Skin color, texture, turgor normal, no rashes or lesions. Pulm: no conversational shortness of breath or cough GI: Abdomen soft and non-tender. Musculoskeletal: Minimal difficulty with ascend and descend from sitting position. Positive tenderness to palpation in the lumbar paraspinal muscles and gluteal without spasms. Deferred toe and heel raise Deferred knee bend due to balance. Lumbar range of motion with guarded stiff movements throughout Strength is 4/5 BLE positive straight leg raise from sitting position bilaterally.Negative Fabere sign bilaterally ASSESSMENT: claim # [id number] DOI: 03/09/2008 Allowed diagnosis: S43.401A, S33.5XXA, S40.011A, S50.11XA, S30.0XA, S46.011A, M54.17, S43.431A, M25.811, M51.27, M75.41, M19.077, M48.061 (S33.5XXS) Lumbar sprain, sequela (primary encounter diagnosis) (M48.061) Spinal stenosis, lumbar region, without neurogenic claudication (M54.42, M54.41, G89.29) Chronic bilateral low back pain with bilateral sciatica (Z79.899) High risk medication use PLAN: Continue Flexeril PRN Continue Xtampza and percocet for btp.These medications helps patient perform ADL, interact with family and friends.No misuse or aberrant behaviors detected. OAARS reviewed and consistent UDS re (more content not included)... [facility] 08-15-2022 Instructions Yojana Madden APRN.ADMINISTRATIVE CLERK - 08/15/2022 3:26 PM EDT Continue Flexeril PRN Continue Xtampza and percocet for btp.These medications helps patient perform ADL, interact with family and friends.No misuse or aberrant behaviors detected. OAARS reviewed and consistent UDS reviewed and consistent Sumbit C9 and order UDS Continue lyrica 100mg TID Continue Mobic C9 for Left L3-S1 SNRT BLK. Lasta done 02/16/22 with 75% relief Followup in 3 months documented in this encounter [facility] 08-15-2022 History of Presen t illness Narrative SUBJECTIVE: Estela Bailey Pablito presents to [facility] for a follow-up appointment for back pain [facility] Last seen by me on 05/17/22 with following plan of care: Continue Flexeril PRN Continue Xtampza and percocet These medications helps patient perform ADL, interact with family and friends.No misuse or aberrant behaviors detected. OAARS reviewed and consistent UDS reviewed and consistent Sumbit C9 and order UDS Continue lyrica 100mg TID Continue Mobic Followup in 3 months in office Last procedure:02/16/22 left L3-S1 SNRT BLK 75% relief Pain level:05/15 Denies any ED visits or hospitalizations since last office visit Reports pain worse with everything Reports pain better ice, heating pad, and medications. Describes pain in lower back as constant ache that radiates to buttock, hip and legs. Greater on left States has numbness/tingling in legs. Greater on left States she fell off a ladder States blood sugars 120-140's REVIEW OF SYSTEMS: GENERAL: positive 33# intentional weight loss, denies malaise or fevers. HEENT: Negative for frequent or significant headaches. RESPIRATORY: Negative for cough, wheezing or shortness of breath. CARDIOVASCULAR: Negative for chest pain, leg swelling or palpitations. GI: Negative for abdominal discomfort, blood in stools or black stools or change in bowel habits. Takes miralax every other day for BM : denies issues Past Medical History: PAST MEDICAL HISTORY Diagnosis Date Anxiety COPD (chronic obstructive pulmonary disease) (HCC) Depression Diabetes (HCC) GERD (gastroesophageal reflux disease) Glaucoma Hypertension Joint pain Kidney stone LBP (low back pain) Neck pain Obesity Restless leg syndrome Shingles Smoking Past Surgical History: PAST SURGICAL HISTORY Procedure Laterality Date ANESTH, SECTION APPENDECTOMY as child APPENDECTOMY HX DELIVERY ONLY 02/06/1980 , low transverse CHOLECYSTECTOMY 02/05/1999 Cholecystectomy laparoscopic ESOPHAGOGASTRODUODENOSCOPY TRANSORAL DIAGNOSTIC 05/12/2015 EGD HYSTERECTOMY HX LITHOTRIPSY / 1 SIDE NECK SURGERY HX OPEN REPAIR OF ROTATOR CUFF ACUTE 2008, 2012 Rotator cuff repair, right X2 ORTHOPEDICS SURGERY HX PAST SURGICAL HISTORY OF 02/06/2012 lumbar fusion L5-S1 PAST SURGICAL HISTORY OF 02/05/2013 lumbar pain injections. REVISE MEDIAN N/CARPAL TUNNEL SURG and trigger finger SPINE SURGERY HX TOOTH EXTRACTION TOTAL ABDOMINAL HYSTERECT W/WO RMVL TUBE OVARY 02/05/2003 Hysterectomy, CURTIS BSO Family History: FAMILY HISTORY Problem Relation Age of Onset Heart Mother Stroke Mother Diabetes Mother Heart Father 55 of heart attack other (agent orange) Father Tuberculosis Father Heart Sister 53 of heart attack Heart Sister 52 of heart attack Diabetes Sister Obesity Sister Diabetes Sister other (htn) Sister other (stomach issues) Sister Diabetes Brother other (back issues) Brother other (htn) Brother Social History: Social History Tobacco Use Smoking status: Former Packs/day: 1.00 Years: 30.00 Total pack years: 30.00 Types: Cigarettes Smokeless tobacco: Never Substance Use Topics Alcohol use: No Drug use: No OBJECTIVE: BP 148/71 Pulse 78 Resp 19 Ht 5' 0 (1.52m) Wt 159 lb (72.1kg) SpO2 97% BMI 31.05 kg/(m^2). PHYSICAL EXAMINATION: General appearance: Well appearing, in no acute distress, alert. Psych: Mood and affect appropriate. Skin: Skin color, texture, turgor normal, no rashes or lesions. Pulm: no conversational shortness of breath or cough GI: Abdomen soft and non-tender. Musculoskeletal: Minimal difficulty with ascend and descend from sitting position. Positive tenderness to palpation in the lumbar paraspinal muscles and gluteal without spasms. Deferred toe and heel raise Deferred knee bend due to balance. Lumbar range of motion with guarded stiff movements throughout Strength is 4/5 BLE positive straight leg raise from sitting position bilaterally.Negative Fabere sign bilaterally ASSESSMENT: claim # [id number] DOI: 03/09/2008 Allowed diagnosis: S43.401A, S33.5XXA, S40.011A, S50.11XA, S30.0XA, S46.011A, M54.17, S43.431A, M25.811, M51.27, M75.41, M19.077, M48.061 (S33.5XXS) Lumbar sprain, sequela (primary encounter diagnosis) (M48.061) Spinal stenosis, lumbar region, without neurogenic claudication (M54.42, M54.41, G89.29) Chronic bilateral low back pain with bilateral sciatica (Z79.899) High risk medication use PLAN: Continue Flexeril PRN Continue Xtampza and percocet for btp.These medications helps patient perform ADL, interact with family and friends.No misuse or aberrant behaviors detected. OAARS reviewed and consistent UDS reviewed and consistent Sumbit C9 and order UDS Continue lyrica 100mg TID Continue Mobic C9 for Left L3-S1 SNRT BLK. Lasta done 02/16/22 with 75% relief Followup in 3 months The above plan and management options were discussed at length with the patient. The patient is in agreement with the above and verbalized understanding. Yojana Madden APRN.CNS August 15, 2022 documented in this encounter [facility] 05-17-2022 Note HNO ID: [id number] Author: Yojana Madden APRN.ADMINISTRATIVE CLERK Service: ? Author Type: Clinical Nurse Specialist Type: Progress Notes Filed: 05/17/2022 2:41 PM Note Text: SUBJECTIVE: Estela Kenney presents to [facility] for a follow-up appointment for back pain [facility] Last seen by tori dumont 02/15/22 with following plan of care: Continue Flexeril PRN Continue Xtampza and percocet These medications helps patient perform ADL, interact with family and friends.No misuse or aberrant behaviors detected. OAARS reviewed and consistent UDS reviewed and consistent Sign Pain contract Continue lyrica 100mg TID Continue Mobic Encouraged to keep appt for injection on 02/16/22 Discussed briefly about lumbar facet dx block as precusor to RFA since had blood sugar issue this past injection Followup in 3 months in office Last procedure 02/16/22 Left L3-S1 SNRT BLK Pain level:3-410 States had 75% relief from injection States the walk from parking deck increased her pain Denies any ED visits or hospitalizations since last office visit Reports pain worse with everything Reports pain better ice/heating pad, and medications. Describes pain in lower back as constant ache that radiates to buttock, hip and legs. Greater on left States has numbness/tingling in left leg greater than right leg Denies falls States blood sugars 90--120's States her HGB A1C dropped from 7.9 to 7.1 REVIEW OF SYSTEMS: GENERAL: Positive intentional weight loss, denies malaise or fevers. HEENT: Negative for frequent or significant headaches. RESPIRATORY: Negative for cough, wheezing or shortness of breath. CARDIOVASCULAR: Negative for chest pain, leg swelling or palpitations. GI: Negative for abdominal discomfort, blood in stools or black stools or change in bowel habits. Take miralax to have BM every other day Gu:denies issues Past Medical History: PAST MEDICAL HISTORY Diagnosis Date Anxiety COPD (chronic obstructive pulmonary disease) (HCC) Depression Diabetes (HCC) GERD (gastroesophageal reflux disease) Glaucoma Hypertension Joint pain Kidney stone LBP (low back pain) Neck pain Obesity Restless leg syndrome Shingles Smoking Past Surgical History: PAST SURGICAL HISTORY Procedure Laterality Date ANESTH, SECTION APPENDECTOMY as child APPENDECTOMY HX DELIVERY ONLY 02/06/1980 , low transverse CHOLECYSTECTOMY 02/05/1999 Cholecystectomy laparoscopic ESOPHAGOGASTRODUODENOSCOPY TRANSORAL DIAGNOSTIC 05/12/2015 EGD HYSTERECTOMY HX LITHOTRIPSY / 1 SIDE NECK SURGERY HX OPEN REPAIR OF ROTATOR CUFF ACUTE 2008, 2012 Rotator cuff repair, right X2 ORTHOPEDICS SURGERY HX PAST SURGICAL HISTORY OF 02/06/2012 lumbar fusion L5-S1 PAST SURGICAL HISTORY OF 02/05/2013 lumbar pain injections. REVISE MEDIAN N/CARPAL TUNNEL SURG and trigger finger SPINE SURGERY HX TOOTH EXTRACTION TOTAL ABDOMINAL HYSTERECT W/WO RMVL TUBE OVARY 02/05/2003 Hysterectomy, CURTIS BSO Family History: FAMILY HISTORY Problem Relation Age of Onset Heart Mother Stroke Mother Diabetes Mother Heart Father 55 of heart attack other (agent orange) Father Tuberculosis Father Heart Sister 53 of heart attack Heart Sister 52 of heart attack Diabetes Sister Obesity Sister Diabetes Sister other (htn) Sister other (stomach issues) Sister Diabetes Brother other (back issues) Brother other (htn) Brother Social History: Social History Tobacco Use Smoking status: Former Packs/day: 1.00 Years: 30.00 Pack years: 30.00 Types: Cigarettes Smokeless tobacco: Never Substance Use Topics Alcohol use: No Drug use: No OBJECTIVE: BP 138/68 Pulse 101 Resp 19 Ht 5' 1.2 (1.55m) Wt 167 lb (75.8kg) SpO2 95% BMI 31.37 kg/(m2). PHYSICAL EXAMINATION: General appearance: Well appearing, in no acute distress, alert. Accompanied by daughter Psych: Mood and affect appropriate. Skin: [place], warm, and dry Pulm: no conversational shortness of breath or cough GI: Abdomen soft and non-tender. Musculoskeletal: Positive tenderness to palpation in the lumbar paraspinal muscles and gluteal without spasms. Deferred toe and heel raise Deferred knee bend due to balance. Lumbar range of motion with guarded stiff movements throughout Strength is 4/5 BLE Straight leg raise is positive bilaterally, Negative Fabere sign bilaterally ASSESSMENT: claim # [id number] DOI: 03/09/2008 Allowed diagnosis: S43.401A, S33.5XXA, S40.011A, S50.11XA, S30.0XA, S46.011A, M54.17, S43.431A, M25.811, M51.27, M75.41, M19.077, M48.061 (M48.061) Spinal stenosis, lumbar region, without neurogenic claudication (M54.42, M54.41, G89.29) Chronic bilateral low back pain with bilateral sciatica (M51.27) Lumbago-sciatica due to displacement of lumbar intervertebral disc (S33.5XXS) Lumbar sprain, sequela (Z79.899) High risk medication use (more content not included)... [facility] 05-17-2022 Instructions Yojana Madden APRN.CNS - 05/17/2022 2:31 PM EDT Continue Flexeril PRN Continue Xtampza and percocet These medications helps patient perform ADL, interact with family and friends.No misuse or aberrant behaviors detected. OAARS reviewed and consistent UDS reviewed and consistent Sumbit C9 and order UDS Continue lyrica 100mg TID Continue Mobic Followup in 3 months in office documented in this encounter [facility] 05-17-2022 History of Presen t illness Narrative SUBJECTIVE: Estela Kenney presents to [facility] for a follow-up appointment for back pain [facility] Last seen by tori dumont 02/15/22 with following plan of care: Continue Flexeril PRN Continue Xtampza and percocet These medications helps patient perform ADL, interact with family and friends.No misuse or aberrant behaviors detected. OAARS reviewed and consistent UDS reviewed and consistent Sign Pain contract Continue lyrica 100mg TID Continue Mobic Encouraged to keep appt for injection on 02/16/22 Discussed briefly about lumbar facet dx block as precusor to RFA since had blood sugar issue this past injection Followup in 3 months in office Last procedure 02/16/22 Left L3-S1 SNRT BLK Pain level:3-4/10 States had 75% relief from injection States the walk from parking deck increased her pain Denies any ED visits or hospitalizations since last office visit Reports pain worse with everything Reports pain better ice/heating pad, and medications. Describes pain in lower back as constant ache that radiates to buttock, hip and legs. Greater on left States has numbness/tingling in left leg greater than right leg Denies falls States blood sugars 90--120's States her HGB A1C dropped from 7.9 to 7.1 REVIEW OF SYSTEMS: GENERAL: Positive intentional weight loss, denies malaise or fevers. HEENT: Negative for frequent or significant headaches. RESPIRATORY: Negative for cough, wheezing or shortness of breath. CARDIOVASCULAR: Negative for chest pain, leg swelling or palpitations. GI: Negative for abdominal discomfort, blood in stools or black stools or change in bowel habits. Take miralax to have BM every other day Gu:denies issues Past Medical History: PAST MEDICAL HISTORY Diagnosis Date Anxiety COPD (chronic obstructive pulmonary disease) (HCC) Depression Diabetes (HCC) GERD (gastroesophageal reflux disease) Glaucoma Hypertension Joint pain Kidney stone LBP (low back pain) Neck pain Obesity Restless leg syndrome Shingles Smoking Past Surgical History: PAST SURGICAL HISTORY Procedure Laterality Date ANESTH, SECTION APPENDECTOMY as child APPENDECTOMY HX DELIVERY ONLY 02/06/1980 , low transverse CHOLECYSTECTOMY 02/05/1999 Cholecystectomy laparoscopic ESOPHAGOGASTRODUODENOSCOPY TRANSORAL DIAGNOSTIC 05/12/2015 EGD HYSTERECTOMY HX LITHOTRIPSY / 1 SIDE NECK SURGERY HX OPEN REPAIR OF ROTATOR CUFF ACUTE 2008, 2012 Rotator cuff repair, right X2 ORTHOPEDICS SURGERY HX PAST SURGICAL HISTORY OF 02/06/2012 lumbar fusion L5-S1 PAST SURGICAL HISTORY OF 02/05/2013 lumbar pain injections. REVISE MEDIAN N/CARPAL TUNNEL SURG and trigger finger SPINE SURGERY HX TOOTH EXTRACTION TOTAL ABDOMINAL HYSTERECT W/WO RMVL TUBE OVARY 02/05/2003 Hysterectomy, CURTIS BSO Family History: FAMILY HISTORY Problem Relation Age of Onset Heart Mother Stroke Mother Diabetes Mother Heart Father 55 of heart attack other (agent orange) Father Tuberculosis Father Heart Sister 53 of heart attack Heart Sister 52 of heart attack Diabetes Sister Obesity Sister Diabetes Sister other (htn) Sister other (stomach issues) Sister Diabetes Brother other (back issues) Brother other (htn) Brother Social History: Social History Tobacco Use Smoking status: Former Packs/day: 1.00 Years: 30.00 Pack years: 30.00 Types: Cigarettes Smokeless tobacco: Never Substance Use Topics Alcohol use: No Drug use: No OBJECTIVE: BP 138/68 Pulse 101 Resp 19 Ht 5' 1.2 (1.55m) Wt 167 lb (75.8kg) SpO2 95% BMI 31.37 kg/(m^2). PHYSICAL EXAMINATION: General appearance: Well appearing, in no acute distress, alert. Accompanied by daughter Psych: Mood and affect appropriate. Skin: [place], warm, and dry Pulm: no conversational shortness of breath or cough GI: Abdomen soft and non-tender. Musculoskeletal: Positive tenderness to palpation in the lumbar paraspinal muscles and gluteal without spasms. Deferred toe and heel raise Deferred knee bend due to balance. Lumbar range of motion with guarded stiff movements throughout Strength is 4/5 BLE Straight leg raise is positive bilaterally, Negative Fabere sign bilaterally ASSESSMENT: claim # [id number] DOI: 03/09/2008 Allowed diagnosis: S43.401A, S33.5XXA, S40.011A, S50.11XA, S30.0XA, S46.011A, M54.17, S43.431A, M25.811, M51.27, M75.41, M19.077, M48.061 (M48.061) Spinal stenosis, lumbar region, without neurogenic claudication (M54.42, M54.41, G89.29) Chronic bilateral low back pain with bilateral sciatica (M51.27) Lumbago-sciatica due to displacement of lumbar intervertebral disc (S33.5XXS) Lumbar sprain, sequela (Z79.899) High risk medication use PLAN: Continue Flexeril PRN Continue Xtampza and percocet These medications helps patient perform ADL, interact with family and friends.No misuse or aberrant behaviors detected. OAARS reviewed and consistent UDS reviewed and consistent Sumbit C9 and order UDS Continue lyrica 100mg TID Continue Mobic Followup in 3 months in office The above plan and management options were discussed at length with the patient. The patient is in agreement with the above and verbalized understanding. Yojana Madden APRN.CNS May 17, 2022 documented in this encounter [facility] 04-23-2022 Miscellaneous Notes The following approved medication requests have been transmitted electronically. Requested Prescriptions Signed Prescriptions Disp Refills oxyCODONE myristate (XTAMPZA ER) 13.5 mg CSpT 60 Each 0 Sig: Take 13.5 mg by mouth every 12 hours for 30 days. Authorizing Provider: YOJANA MADDEN oxyCODONE-acetaminophen (PERCOCET) 5-325 mg tablet 90 tablet 0 Sig: Take 1 tablet by mouth three times daily as needed for pain for up to 30 days. Do not start before April 25, 2022. Authorizing Provider: YOJANA MADDEN pregabalin (LYRICA) 100 mg capsule 90 capsule 0 Sig: Take 1 capsule by mouth three times daily for 30 days. Do not start before April 25, 2022. Authorizing Provider: YOJANA MADDEN APRN.ADMINISTRATIVE CLERK Patient phones requesting refills as follows: Requested Prescriptions Pending Prescriptions Disp Refills oxyCODONE myristate (XTAMPZA ER) 13.5 mg CSpT 60 Each 0 Sig: Take 13.5 mg by mouth every 12 hours for 30 days. oxyCODONE-acetaminophen (PERCOCET) 5-325 mg tablet 90 tablet 0 Sig: Take 1 tablet by mouth three times daily as needed for pain for up to 30 days. pregabalin (LYRICA) 100 mg capsule 90 capsule 0 Sig: Take 1 capsule by mouth three times daily for 30 days. Last UDS: No results found for: SUMM @FLOW([id number])@ No results found for: SUMM No results found for: SUMMAR Please review and advise. Rita Ayala RN documented in this encounter [facility] 03-23-2022 Miscellaneous Notes The following approved medication requests have been transmitted electronically. Requested Prescriptions Signed Prescriptions Disp Refills oxyCODONE myristate (XTAMPZA ER) 13.5 mg CSpT 60 Each 0 Sig: Take 13.5 mg by mouth every 12 hours for 30 days. Authorizing Provider: YOJANA MADDEN oxyCODONE-acetaminophen (PERCOCET) 5-325 mg tablet 90 tablet 0 Sig: Take 1 tablet by mouth three times daily as needed for pain for up to 30 days. Do not start before March 26, 2022. Authorizing Provider: YOJANA MADDEN pregabalin (LYRICA) 100 mg capsule 90 capsule 0 Sig: Take 1 capsule by mouth three times daily for 30 days. Do not start before March 26, 2022. Authorizing Provider: YOJANA MADDEN APRN.ADMINISTRATIVE CLERK Patient phones requesting refills as follows: Requested Prescriptions Pending Prescriptions Disp Refills oxyCODONE myristate (XTAMPZA ER) 13.5 mg CSpT 60 Each 0 Sig: Take 13.5 mg by mouth every 12 hours for 30 days. oxyCODONE-acetaminophen (PERCOCET) 5-325 mg tablet 90 tablet 0 Sig: Take 1 tablet by mouth three times daily as needed for pain for up to 30 days. pregabalin (LYRICA) 100 mg capsule 90 capsule 0 Sig: Take 1 capsule by mouth three times daily for 30 days. Last UDS: No results found for: SUMM @FLOW([id number])@ No results found for: SUMM No results found for: SUMMAR Please review and advise. Elizabeth Ray RN documented in this encounter [facility] 02-15-2022 Note HNO ID: [id number] Author: Yojana Madden APRN.ADMINISTRATIVE CLERK Service: ? Author Type: Clinical Nurse Specialist Type: Progress Notes Filed: 02/15/2022 3:34 PM Note Text: SUBJECTIVE: Estela Kenney presents to [facility] for a follow-up appointment for back pain [facility] Last seen by me on 11/15/21 Plan of care form 11/15/21 included; lyrica, mobic, flexeril, xtampza, percocet, cymbalta from PCP, UDS Pain level: 4-5/10 States walking from parking lot was a lot to do. Denies any ED visits or hospitalizations since last office visit Reports pain worse with everything Reports pain better ice/heating pad, and medications. Describes pain in lower back as constant ache that radiates to buttock States radiating to hips and leg States has numbness/tingling in left leg greater than right leg States fell at home States blood sugars 90--130's REVIEW OF SYSTEMS: GENERAL: No weight loss, malaise or fevers. HEENT: Negative for frequent or significant headaches. RESPIRATORY: Negative for cough, wheezing or shortness of breath. CARDIOVASCULAR: Negative for chest pain, leg swelling or palpitations. GI: Negative for abdominal discomfort, blood in stools or black stools or change in bowel habits. :denies issues Past Medical History: PAST MEDICAL HISTORY Diagnosis Date Anxiety COPD (chronic obstructive pulmonary disease) (HCC) Depression Diabetes (HCC) GERD (gastroesophageal reflux disease) Glaucoma Hypertension Joint pain Kidney stone LBP (low back pain) Neck pain Obesity Restless leg syndrome Shingles Smoking Past Surgical History: PAST SURGICAL HISTORY Procedure Laterality Date ANESTH, SECTION APPENDECTOMY as child APPENDECTOMY HX DELIVERY ONLY 02/06/1980 , low transverse CHOLECYSTECTOMY 02/05/1999 Cholecystectomy laparoscopic ESOPHAGOGASTRODUODENOSCOPY TRANSORAL DIAGNOSTIC 05/12/2015 EGD HYSTERECTOMY HX LITHOTRIPSY / 1 SIDE NECK SURGERY HX OPEN REPAIR OF ROTATOR CUFF ACUTE 2008, 2012 Rotator cuff repair, right X2 ORTHOPEDICS SURGERY HX PAST SURGICAL HISTORY OF 02/06/2012 lumbar fusion L5-S1 PAST SURGICAL HISTORY OF 02/05/2013 lumbar pain injections. REVISE MEDIAN N/CARPAL TUNNEL SURG and trigger finger SPINE SURGERY HX TOOTH EXTRACTION TOTAL ABDOMINAL HYSTERECT W/WO RMVL TUBE OVARY 02/05/2003 Hysterectomy, CURTIS BSO Family History: FAMILY HISTORY Problem Relation Age of Onset Heart Mother Stroke Mother Diabetes Mother Heart Father 55 of heart attack other (agent orange) Father Tuberculosis Father Heart Sister 53 of heart attack Heart Sister 52 of heart attack Diabetes Sister Obesity Sister Diabetes Sister other (htn) Sister other (stomach issues) Sister Diabetes Brother other (back issues) Brother other (htn) Brother Social History: Social History Tobacco Use Smoking status: Former Packs/day: 1.00 Years: 30.00 Pack years: 30.00 Types: Cigarettes Smokeless tobacco: Never Substance Use Topics Alcohol use: No Drug use: No OBJECTIVE: There were no vitals taken for this visit. PHYSICAL EXAMINATION: General appearance: Well appearing, in no acute distress, alert. Psych: Mood and affect appropriate. Skin: Skin color, texture, turgor normal, no rashes or lesions.red spot above left eyebrow Pulm: no conversational shortness of breath GI: Abdomen soft and non-tender. Musculoskeletal: Positive tenderness to palpation in the lumbar paraspinal muscles and gluteal without spasms. Deferred toe and heel raise Deferred knee bend due to balance. Lumbar range of motion with guarded stiff movements throughout Strength is 4/5 BLE Straight leg raise is positive bilaterally, Negative Fabere sign bilaterally ASSESSMENT: claim # [id number] DOI: 03/09/2008 Allowed diagnosis: S43.401A, S33.5XXA, S40.011A, S50.11XA, S30.0XA, S46.011A, M54.17, S43.431A, M25.811, M51.27, M75.41, M19.077, M48.061 Visit dx Lumbago-sciatica due to displacement of lumbar intervertebral disc Spinal stenosis, lumbar region, without neurogenic claudication Lumbar sprain, sequela High risk medication use (primary encounter diagnosis) PLAN: Continue Flexeril PRN Continue Xtampza and percocet These medications helps patient perform ADL, interact with family and friends.No misuse or aberrant behaviors detected. OAARS reviewed and consistent UDS reviewed and consistent Sign Pain contract Continue lyrica 100mg TID Continue Mobic Encouraged to keep appt for injection on 02/16/22 Discussed briefly about lumbar facet dx block as precusor to RFA since had blood sugar issue this past injection Followup in 3 months in office The above plan and management options were discussed at length with the patient. The patient is in agreement with the above and verbalized understanding. Yojana Madden APRN.SAVANNA February 15, 2022 [facility] 02-15-2022 Instructions Yojana Madden APRN.ADMINISTRATIVE CLERK - 02/15/2022 3:04 PM EST Continue Flexeril PRN Continue Xtampza and percocet These medications helps patient perform ADL, interact with family and friends.No misuse or aberrant behaviors detected. OAARS reviewed and consistent UDS reviewed and consistent Sign Pain contract Continue lyrica 100mg TID Continue Mobic Encouraged to keep appt for injection on 02/16/22 Discussed briefly about lumbar facet dx block as precusor to RFA since had blood sugar issue this past injection Followup in 3 months in office documented in this encounter [facility] 02-15-2022 History of Presen t illness Narrative SUBJECTIVE: Estela Kenney presents to [facility] for a follow-up appointment for back pain [facility] Last seen by me on 11/15/21 Plan of care form 11/15/21 included; lyrica, mobic, flexeril, xtampza, percocet, cymbalta from PCP, UDS Pain level: 4-5/10 States walking from parking lot was a lot to do. Denies any ED visits or hospitalizations since last office visit Reports pain worse with everything Reports pain better ice/heating pad, and medications. Describes pain in lower back as constant ache that radiates to buttock States radiating to hips and leg States has numbness/tingling in left leg greater than right leg States fell at home States blood sugars 90--130's REVIEW OF SYSTEMS: GENERAL: No weight loss, malaise or fevers. HEENT: Negative for frequent or significant headaches. RESPIRATORY: Negative for cough, wheezing or shortness of breath. CARDIOVASCULAR: Negative for chest pain, leg swelling or palpitations. GI: Negative for abdominal discomfort, blood in stools or black stools or change in bowel habits. :denies issues Past Medical History: PAST MEDICAL HISTORY Diagnosis Date Anxiety COPD (chronic obstructive pulmonary disease) (HCC) Depression Diabetes (HCC) GERD (gastroesophageal reflux disease) Glaucoma Hypertension Joint pain Kidney stone LBP (low back pain) Neck pain Obesity Restless leg syndrome Shingles Smoking Past Surgical History: PAST SURGICAL HISTORY Procedure Laterality Date ANESTH, SECTION APPENDECTOMY as child APPENDECTOMY HX DELIVERY ONLY 02/06/1980 , low transverse CHOLECYSTECTOMY 02/05/1999 Cholecystectomy laparoscopic ESOPHAGOGASTRODUODENOSCOPY TRANSORAL DIAGNOSTIC 05/12/2015 EGD HYSTERECTOMY HX LITHOTRIPSY / 1 SIDE NECK SURGERY HX OPEN REPAIR OF ROTATOR CUFF ACUTE 2008, 2012 Rotator cuff repair, right X2 ORTHOPEDICS SURGERY HX PAST SURGICAL HISTORY OF 02/06/2012 lumbar fusion L5-S1 PAST SURGICAL HISTORY OF 02/05/2013 lumbar pain injections. REVISE MEDIAN N/CARPAL TUNNEL SURG and trigger finger SPINE SURGERY HX TOOTH EXTRACTION TOTAL ABDOMINAL HYSTERECT W/WO RMVL TUBE OVARY 02/05/2003 Hysterectomy, CURTIS BSO Family History: FAMILY HISTORY Problem Relation Age of Onset Heart Mother Stroke Mother Diabetes Mother Heart Father 55 of heart attack other (agent orange) Father Tuberculosis Father Heart Sister 53 of heart attack Heart Sister 52 of heart attack Diabetes Sister Obesity Sister Diabetes Sister other (htn) Sister other (stomach issues) Sister Diabetes Brother other (back issues) Brother other (htn) Brother Social History: Social History Tobacco Use Smoking status: Former Packs/day: 1.00 Years: 30.00 Pack years: 30.00 Types: Cigarettes Smokeless tobacco: Never Substance Use Topics Alcohol use: No Drug use: No OBJECTIVE: There were no vitals taken for this visit. PHYSICAL EXAMINATION: General appearance: Well appearing, in no acute distress, alert. Psych: Mood and affect appropriate. Skin: Skin color, texture, turgor normal, no rashes or lesions.red spot above left eyebrow Pulm: no conversational shortness of breath GI: Abdomen soft and non-tender. Musculoskeletal: Positive tenderness to palpation in the lumbar paraspinal muscles and gluteal without spasms. Deferred toe and heel raise Deferred knee bend due to balance. Lumbar range of motion with guarded stiff movements throughout Strength is 4/5 BLE Straight leg raise is positive bilaterally, Negative Fabere sign bilaterally ASSESSMENT: claim # [id number] DOI: 03/09/2008 Allowed diagnosis: S43.401A, S33.5XXA, S40.011A, S50.11XA, S30.0XA, S46.011A, M54.17, S43.431A, M25.811, M51.27, M75.41, M19.077, M48.061 Visit dx Lumbago-sciatica due to displacement of lumbar intervertebral disc Spinal stenosis, lumbar region, without neurogenic claudication Lumbar sprain, sequela High risk medication use (primary encounter diagnosis) PLAN: Continue Flexeril PRN Continue Xtampza and percocet These medications helps patient perform ADL, interact with family and friends.No misuse or aberrant behaviors detected. OAARS reviewed and consistent UDS reviewed and consistent Sign Pain contract Continue lyrica 100mg TID Continue Mobic Encouraged to keep appt for injection on 02/16/22 Discussed briefly about lumbar facet dx block as precusor to RFA since had blood sugar issue this past injection Followup in 3 months in office The above plan and management options were discussed at length with the patient. The patient is in agreement with the above and verbalized understanding. Yojana Madden APRN.CNS February 15, 2022 documented in this encounter [facility] 01-16-2022 Miscellaneous Notes The following approved medication requests have been transmitted electronically. Requested Prescriptions Signed Prescriptions Disp Refills oxyCODONE myristate (XTAMPZA ER) 13.5 mg CSpT 60 Each 0 Sig: Take 13.5 mg by mouth every 12 hours for 30 days. Do not start before January 18, 2022. Authorizing Provider: YOJANA MADDEN oxyCODONE-acetaminophen (PERCOCET) 5-325 mg tablet 90 tablet 0 Sig: Take 1 tablet by mouth three times daily as needed for pain for up to 30 days. Do not start before January 25, 2022. Authorizing Provider: YOJANA MADDEN pregabalin (LYRICA) 100 mg capsule 90 capsule 0 Sig: Take 1 capsule by mouth three times daily for 30 days. Do not start before January 25, 2022. Authorizing Provider: YOJANA MADDEN APRN.CNS Patient phones requesting refills as follows: Requested Prescriptions Pending Prescriptions Disp Refills oxyCODONE myristate (XTAMPZA ER) 13.5 mg CSpT 60 Each 0 Sig: Take 13.5 mg by mouth every 12 hours for 30 days. oxyCODONE-acetaminophen (PERCOCET) 5-325 mg tablet 90 tablet 0 Sig: Take 1 tablet by mouth three times daily as needed for pain for up to 30 days. pregabalin (LYRICA) 100 mg capsule 90 capsule 0 Sig: Take 1 capsule by mouth three times daily for 30 days. Please review and advise. Rita Ayala RN documented in this encounter [facility] 12-19-2021 Miscellaneous Notes The following approved medication requests have been transmitted electronically. Requested Prescriptions Signed Prescriptions Disp Refills oxyCODONE myristate (XTAMPZA ER) 13.5 mg CSpT 60 Each 0 Sig: Take 13.5 mg by mouth every 12 hours for 30 days. Authorizing Provider: YOJANA MADDEN oxyCODONE-acetaminophen (PERCOCET) 5-325 mg tablet 90 tablet 0 Sig: Take 1 tablet by mouth three times daily as needed for pain for up to 30 days. Do not start before December 26, 2021. Authorizing Provider: YOJANA MADDEN pregabalin (LYRICA) 100 mg capsule 90 capsule 0 Sig: Take 1 capsule by mouth three times daily for 30 days. Do not start before December 26, 2021. Authorizing Provider: YOJANA MADDEN cyclobenzaprine (FLEXERIL) 10 mg tablet 90 tablet 0 Sig: Take 1 tablet by mouth three times daily. Authorizing Provider: YOJANA MADDEN APRN.ADMINISTRATIVE CLERK Patient phones requesting refills as follows: Requested Prescriptions Pending Prescriptions Disp Refills oxyCODONE myristate (XTAMPZA ER) 13.5 mg CSpT 60 Each 0 Sig: Take 13.5 mg by mouth every 12 hours for 30 days. oxyCODONE-acetaminophen (PERCOCET) 5-325 mg tablet 90 tablet 0 Sig: Take 1 tablet by mouth three times daily as needed for pain for up to 30 days. pregabalin (LYRICA) 100 mg capsule 90 capsule 0 Sig: Take 1 capsule by mouth three times daily for 30 days. cyclobenzaprine (FLEXERIL) 10 mg tablet 90 tablet 0 Sig: Take 1 tablet by mouth three times daily. Please review and advise. Mahamed Nguyen RN documented in this encounter [facility] 12-12-2021 Miscellaneous Notes I left a message to reschedule her procedure. Graciela December 12, 2021 3:58 PM documented in this encounter [facility] 12-12-2021 Miscellaneous Notes I spoke with Tory at [facility] regarding changing the SNRB from Right sided to the left side. She gave a verbal authorization to change the sides. She will fax that to me once it has been processed. Graciela Dhaliwal December 12, 2021 2:01 PM documented in this encounter [facility] 12-12-2021 Miscellaneous Notes Pt notified of the message below. Elizabeth Ray RN December 12, 2021 12:56 PM NO CHANGE. SHE WILL HAVE TO ADJUST HER INSULIN AFTER THE INJECTION. TYPICALLY I ALLOT 2 WEEKS IN BETWEEN INJECTIONS FOR DIABETIC PATIENTS. Summary: careline call Telephone call from pt to careline : pt states that after her last injection (right lumbar SNRB 11-03-21), her FBS went to 560 day of procedure and 390 day after procedure. She is scheduled for another steroidal nerve bloock on 12-15-21; she has been referred to an nutrition coordinator with scheduled appt on 01-05-22. Please advise if change in injection POC. Thank you. Kristyn Edwards RN documented in this encounter [facility] 11-15-[address] Vieira, I received approval for right sided SNRB L3-S1. Please build a case for that to be scheduled Dec 15 @ 1:30. Graciela Paz November 15, 2021 11:17 AM documented in this encounter [facility] 10-24-2021 Miscellaneous Notes The following approved medication requests have been transmitted electronically. Requested Prescriptions Signed Prescriptions Disp Refills meloxicam (MOBIC) 7.5 mg tablet 60 tablet 0 Sig: Take 1 tablet by mouth twice daily. With food. Authorizing Provider: YOJANA MADDEN APRN.ADMINISTRATIVE CLERK Patient phones requesting refills as follows: Requested Prescriptions Pending Prescriptions Disp Refills meloxicam (MOBIC) 7.5 mg tablet 60 tablet 0 Sig: Take 1 tablet by mouth twice daily. With food. Please review and advise. Mahamed Nguyen RN documented in this encounter [facility] 10-19-2021 Miscellaneous Notes The following approved medication requests have been transmitted electronically. Requested Prescriptions Signed Prescriptions Disp Refills cyclobenzaprine (FLEXERIL) 10 mg tablet 90 tablet 0 Sig: Take 1 tablet by mouth three times daily. Authorizing Provider: YOJANA MADDEN pregabalin (LYRICA) 100 mg capsule 90 capsule 0 Sig: Take 1 capsule by mouth three times daily for 30 days. Do not start before October 26, 2021. Authorizing Provider: YOJANA MADDEN oxyCODONE-acetaminophen (PERCOCET) 5-325 mg tablet 90 tablet 0 Sig: Take 1 tablet by mouth three times daily as needed for pain for up to 30 days. Do not start before October 27, 2021. Authorizing Provider: YOJANA MADDEN oxyCODONE myristate (XTAMPZA ER) 13.5 mg CSpT 60 Each 0 Sig: Take 13.5 mg by mouth every 12 hours for 30 days. Do not start before October 20, 2021. Authorizing Provider: YOJANA MADDEN APRN.ADMINISTRATIVE CLERK Patient phones requesting refills as follows: Requested Prescriptions Pending Prescriptions Disp Refills cyclobenzaprine (FLEXERIL) 10 mg tablet 90 tablet 0 Sig: Take 1 tablet by mouth three times daily. pregabalin (LYRICA) 100 mg capsule 90 capsule 0 Sig: Take 1 capsule by mouth three times daily for 30 days. oxyCODONE-acetaminophen (PERCOCET) 5-325 mg tablet 90 tablet 0 Sig: Take 1 tablet by mouth three times daily as needed for pain for up to 30 days. oxyCODONE myristate (XTAMPZA ER) 13.5 mg CSpT 60 Each 0 Sig: Take 13.5 mg by mouth every 12 hours for 30 days. Please review and advise. Rita Ayala RN documented in this encounter [facility] 09-19-2021 Miscellaneous Notes The following approved medication requests have been transmitted electronically. Requested Prescriptions Signed Prescriptions Disp Refills meloxicam (MOBIC) 7.5 mg tablet 60 tablet 0 Sig: Take 1 tablet by mouth twice daily. With food. Authorizing Provider: YOJANA MADDEN APRN.CNS Patient phones requesting refills as follows: Requested Prescriptions Pending Prescriptions Disp Refills meloxicam (MOBIC) 7.5 mg tablet 60 tablet 0 Sig: Take 1 tablet by mouth twice daily. With food. Please review and advise. Mahamed Nguyen RN documented in this encounter [facility] 09-19-2021 Miscellaneous Notes The following approved medication requests have been transmitted electronically. Requested Prescriptions Signed Prescriptions Disp Refills pregabalin (LYRICA) 100 mg capsule 90 capsule 0 Sig: Take 1 capsule by mouth three times daily for 30 days. Do not start before September 26, 2021. Authorizing Provider: YOJANA MADDEN oxyCODONE-acetaminophen (PERCOCET) 5-325 mg tablet 90 tablet 0 Sig: Take 1 tablet by mouth three times daily as needed for pain for up to 30 days. Do not start before September 27, 2021. Authorizing Provider: YOJANA MADDEN oxyCODONE myristate (XTAMPZA ER) 13.5 mg CSpT 60 Each 0 Sig: Take 13.5 mg by mouth every 12 hours for 30 days. Do not start before September 20, 2021. Authorizing Provider: YOJANA MADDEN cyclobenzaprine (FLEXERIL) 10 mg tablet 90 tablet 0 Sig: Take 1 tablet by mouth three times daily. Authorizing Provider: YOJANA MADDEN APRN.ADMINISTRATIVE CLERK Patient phones requesting refills as follows: Requested Prescriptions Pending Prescriptions Disp Refills pregabalin (LYRICA) 100 mg capsule 90 capsule 0 Sig: Take 1 capsule by mouth three times daily for 30 days. oxyCODONE-acetaminophen (PERCOCET) 5-325 mg tablet 90 tablet 0 Sig: Take 1 tablet by mouth three times daily as needed. oxyCODONE myristate (XTAMPZA ER) 13.5 mg CSpT 60 Each 0 Sig: Take 13.5 mg by mouth every 12 hours for 30 days. cyclobenzaprine (FLEXERIL) 10 mg tablet 90 tablet 0 Sig: Take 1 tablet by mouth three times daily. Please review and advise. Karena Guajardo RN documented in this encounter [facility] 08-15-2021 Instructions Yojana Madden APRN.ADMINISTRATIVE CLERK - 08/15/2021 3:35 PM EDT Continue Flexeril PRN Continue Xtampza and percocet These medications helps patient perform ADL, interact with family and friends.No misuse or aberrant behaviors detected. OAARS reviewed and consistent UDS reviewed and consistent Continue lyrica 100mg TID Encouraged to follow instructions of Dr. Pike. Continue Mobic Continue Cymbalta from PCP Submit C9 for right Lumbar L3-S1 SNRT BLK last done with good results 02/24/21 Followup in 3 months in office documented in this encounter [facility] 08-15-2021 History of Presen t illness Narrative Patient was last seen by Dr. Vieira on 05/16/2021 for back pain. [facility] Last procedure: 02/24/2021 Right SNRT BLK 01/20/21 Left SNRT BLK Plan of care: 1) The [facility] report has been reviewed and is consistent with the patient s medical history and medication intake. 2) Continue Flexeril PRN 3) Continue Xtampza and percocet 4) Continue lyrica 100mg TID 5) Encouraged to follow instructions of Dr. Pike. 6) Continue Mobic 7) Continue Cymbalta from PCP 8) Order UDS. 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 Pain level:4/10 Denies any ED visits or hospitalizations since last office visit Reports pain worse with everything and hot humid weather Reports pain better ice/heating pad, and medications. Describes pain in lower back as constant ache that radiates to buttock States radiating to hips States has numbness/tingling in left leg greater than right leg Denies falls Denies any issues with bowels or bladder States has some nausea Denies vomtiing States has some dizziness at times Denies any headaches States blood sugars 90--130's Physical assessment: Alert and oriented x3 Skin pale pink, warm, and dry. No conversational shortness of breath appreciated Wearing face mask. .Mood pleasant and cooperative Some difficulty with ascending and descending from sitting position. Positive tenderness to palpation in the lumbar region without spasms. Deferred toe and heel raise Deferred knee bend due to balance. Lumbar range of motion with guarded stiff movements throughout Strength is 4/5 BLE Straight leg raise is positive bilaterally, Negative Fabere sign bilaterally claim # [id number] DOI: 03/09/2008 Allowed diagnosis: S43.401A, S33.5XXA, S40.011A, S50.11XA, S30.0XA, S46.011A, M54.17, S43.431A, M25.811, M51.27, M75.41, M19.077, M48.061 documented in this encounter [facility] 07-26-2021 Miscellaneous Notes Patient phones requesting refills as follows: Pending Prescriptions Disp Refills OXYCODONE-ACETAMINOPHEN 5 MG-325 MG TABLET 90 tablet 0 Sig: Take 1 tablet by mouth three times daily as needed. SINCERE Class: C-II MIKI: No PREGABALIN 200 MG CAPSULE 90 capsule 0 Sig: Take 1 capsule by mouth three times daily for 30 days. SINCERE Class: C-V MIKI: No Please review and advise. Rita Ayala RN documented in this encounter [facility] documented as of this encounter (statuses as of 05/18/2022) [facility] History of Past illness Narrative* Problem Noted Date Diagnosed Date Resolved Date Tremors of nervous system 07/28/2020 Gastroesophageal reflux disease 05/12/2015 05/12/2015 Dysphagia 05/12/2015 05/12/2015 Smoking 04/14/2014 05/17/2022 documented as of this encounter (statuses as of 08/16/2022) [facility] History of Past illness Narrative* Problem Noted Date Diagnosed Date Resolved Date Tremors of nervous system 07/28/2020 Gastroesophageal reflux disease 05/12/2015 05/12/2015 Dysphagia 05/12/2015 05/12/2015 Smoking 04/14/2014 05/17/2022 documented as of this encounter (statuses as of 08/17/2022) [facility] History of Past illness Narrative* Problem Noted Date Diagnosed Date Resolved Date Tremors of nervous system 07/28/2020 Gastroesophageal reflux disease 05/12/2015 05/12/2015 Dysphagia 05/12/2015 05/12/2015 Smoking 04/14/2014 05/17/2022 documented as of this encounter (statuses as of 08/22/2022) [address]23-2021 History of Past illness Narrative* Problem Noted Date Diagnosed Date Resolved Date Tremors of nervous system 07/28/2020 Gastroesophageal reflux disease 05/12/2015 05/12/2015 Dysphagia 05/12/2015 05/12/2015 Smoking 04/14/2014 05/17/2022 documented as of this encounter (statuses as of 08/23/2022) [address]23-2021 History of Past illness Narrative* Problem Noted Date Diagnosed Date Resolved Date Tremors of nervous system 07/28/2020 Gastroesophageal reflux disease 05/12/2015 05/12/2015 Dysphagia 05/12/2015 05/12/2015 Smoking 04/14/2014 05/17/2022 documented as of this encounter (statuses as of 08/23/2022) [address]23-2021 History of Past illness Narrative* Problem Noted Date Diagnosed Date Resolved Date Tremors of nervous system 07/28/2020 Gastroesophageal reflux disease 05/12/2015 05/12/2015 Dysphagia 05/12/2015 05/12/2015 Smoking 04/14/2014 05/17/2022 documented as of this encounter (statuses as of 09/01/2022) [address]23-2021 History of Past illness Narrative* Problem Noted Date Diagnosed Date Resolved Date Tremors of nervous system 07/28/2020 Gastroesophageal reflux disease 05/12/2015 05/12/2015 Dysphagia 05/12/2015 05/12/2015 Smoking 04/14/2014 05/17/2022 documented as of this encounter (statuses as of 09/21/2022) [address]23-2021 History of Past illness Narrative* Problem Noted Date Diagnosed Date Resolved Date Tremors of nervous system 07/28/2020 Gastroesophageal reflux disease 05/12/2015 05/12/2015 Dysphagia 05/12/2015 05/12/2015 Smoking 04/14/2014 05/17/2022 documented as of this encounter (statuses as of 10/04/2022) [address]23-2021 History of Past illness Narrative* Problem Noted Date Diagnosed Date Resolved Date Tremors of nervous system 07/28/2020 Gastroesophageal reflux disease 05/12/2015 05/12/2015 Dysphagia 05/12/2015 05/12/2015 Smoking 04/14/2014 05/17/2022 documented as of this encounter (statuses as of 10/05/2022) [facility] Past [facility] Narrative* Problem Noted Date Diagnosed Date Resolved Date Tremors of nervous system 07/28/2020 Gastroesophageal reflux disease 05/12/2015 05/12/2015 Dysphagia 05/12/2015 05/12/2015 Smoking 04/14/2014 05/17/2022 documented as of this encounter (statuses as of 10/20/2022) [facility] of Past illness Narrative* Problem Noted Date Diagnosed Date Resolved Date Tremors of nervous system 07/28/2020 Gastroesophageal reflux disease 05/12/2015 05/12/2015 Dysphagia 05/12/2015 05/12/2015 Smoking 04/14/2014 05/17/2022 documented as of this encounter (statuses as of 11/11/2022) [facility] of [facility] Narrative* Problem Noted Date Diagnosed Date Resolved Date Tremors of nervous system 07/28/2020 Gastroesophageal reflux disease 05/12/2015 05/12/2015 Dysphagia 05/12/2015 05/12/2015 Smoking 04/14/2014 05/17/2022 documented as of this encounter (statuses as of 11/11/2022) [facility] of Past [facility] Narrative* Problem Noted Date Diagnosed Date Resolved Date Tremors of nervous system 07/28/2020 Gastroesophageal reflux disease 05/12/2015 05/12/2015 Dysphagia 05/12/2015 05/12/2015 Smoking 04/14/2014 05/17/2022 documented as of this encounter (statuses as of 12/10/2022) [facility] Past [facility] Narrative* Problem Noted Date Diagnosed Date Resolved Date Tremors of nervous system 07/28/2020 Gastroesophageal reflux disease 05/12/2015 05/12/2015 Dysphagia 05/12/2015 05/12/2015 Smoking 04/14/2014 05/17/2022 documented as of this encounter (statuses as of 12/18/2022) [facility] Narrative* Problem Noted Date Diagnosed Date Resolved Date Tremors of nervous system 07/28/2020 Gastroesophageal reflux disease 05/12/2015 05/12/2015 Dysphagia 05/12/2015 05/12/2015 Smoking 04/14/2014 05/17/2022 documented as of this encounter (statuses as of 01/15/2023) [facility] History of Past illness Narrative* Problem Noted Date Resolved Date Gastroesophageal reflux disease 05/12/2015 05/12/2015 Dysphagia 05/12/2015 05/12/2015 documented as of this encounter (statuses as of 07/27/2021) [facility] of Past [facility] Narrative* Problem Noted Date Resolved Date Gastroesophageal reflux disease 05/12/2015 05/12/2015 Dysphagia 05/12/2015 05/12/2015 documented as of this encounter (statuses as of 08/15/2021) [facility] of [facility] Narrative* Problem Noted Date Resolved Date Gastroesophageal reflux disease 05/12/2015 05/12/2015 Dysphagia 05/12/2015 05/12/2015 documented as of this encounter (statuses as of 08/15/2021) [facility] of Past [facility] Narrative* Problem Noted Date Resolved Date Gastroesophageal reflux disease 05/12/2015 05/12/2015 Dysphagia 05/12/2015 05/12/2015 documented as of this encounter (statuses as of 08/21/2021) [facility] of Past [facility] Narrative* Problem Noted Date Resolved Date Gastroesophageal reflux disease 05/12/2015 05/12/2015 Dysphagia 05/12/2015 05/12/2015 documented as of this encounter (statuses as of 09/19/2021) [facility] of [facility] Narrative* Problem Noted Date Resolved Date Gastroesophageal reflux disease 05/12/2015 05/12/2015 Dysphagia 05/12/2015 05/12/2015 documented as of this encounter (statuses as of 09/19/2021) [facility] of [facility] Narrative* Problem Noted Date Resolved Date Gastroesophageal reflux disease 05/12/2015 05/12/2015 Dysphagia 05/12/2015 05/12/2015 documented as of this encounter (statuses as of 10/19/2021) [address]06-2016 History of Past illness Narrative* Problem Noted Date Resolved Date Gastroesophageal reflux disease 05/12/2015 05/12/2015 Dysphagia 05/12/2015 05/12/2015 documented as of this encounter (statuses as of 10/24/2021) [address]06-2016 History of Past illness Narrative* Problem Noted Date Resolved Date Gastroesophageal reflux disease 05/12/2015 05/12/2015 Dysphagia 05/12/2015 05/12/2015 documented as of this encounter (statuses as of 11/03/2021) [address]06-2016 History of Past illness Narrative* Problem Noted Date Resolved Date Gastroesophageal reflux disease 05/12/2015 05/12/2015 Dysphagia 05/12/2015 05/12/2015 documented as of this encounter (statuses as of 11/15/2021) [address]06-2016 History of Past illness Narrative* Problem Noted Date Resolved Date Gastroesophageal reflux disease 05/12/2015 05/12/2015 Dysphagia 05/12/2015 05/12/2015 documented as of this encounter (statuses as of 12/12/2021) [address]06-2016 History of Past illness Narrative* Problem Noted Date Resolved Date Gastroesophageal reflux disease 05/12/2015 05/12/2015 Dysphagia 05/12/2015 05/12/2015 documented as of this encounter (statuses as of 12/19/2021) [address]06-2016 History of Past illness Narrative* Problem Noted Date Resolved Date Gastroesophageal reflux disease 05/12/2015 05/12/2015 Dysphagia 05/12/2015 05/12/2015 documented as of this encounter (statuses as of 01/16/2022) [address]06-2016 History of Past illness Narrative* Problem Noted Date Resolved Date Gastroesophageal reflux disease 05/12/2015 05/12/2015 Dysphagia 05/12/2015 05/12/2015 documented as of this encounter (statuses as of 02/15/2022) [address]06-2016 History of Past illness Narrative* Problem Noted Date Resolved Date Gastroesophageal reflux disease 05/12/2015 05/12/2015 Dysphagia 05/12/2015 05/12/2015 documented as of this encounter (statuses as of 03/23/2022) [facility]arrative* Problem Noted Date Resolved Date Gastroesophageal reflux disease 05/12/2015 05/12/2015 Dysphagia 05/12/2015 05/12/2015 documented as of this encounter (statuses as of 04/23/2022) [facility] note* Diagnosis Chronic bilateral low back pain with bilateral sciatica- Primary [facility] [place] [facility] Diagnosis Sprain of right shoulder, unspecified shoulder sprain type, sequela- Primary Lumbar sprain, sequela Contusion of right scapula, sequela Contusion of right forearm, sequela Strain of tendon of right rotator cuff, sequela Lumbosacral neuritis Thoracic or lumbosacral neuritis or radiculitis, unspecified Superior glenoid labrum lesion of right shoulder, sequela Enlargement of sternoclavicular joint, right 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 Chronic bilateral low back pain with bilateral sciatica Impingement syndrome of right shoulder Other affections of shoulder region, not elsewhere classified Spinal stenosis, lumbar region, without neurogenic claudication [facility] Diagnosis Chronic bilateral low back pain with bilateral sciatica Spinal stenosis, lumbar region, without neurogenic claudication documented in this encounter [facility] note* Diagnosis Chronic bilateral low back pain with bilateral sciatica Spinal stenosis, lumbar region, without neurogenic claudication Lumbar radiculopathy Thoracic or lumbosacral neuritis or radiculitis, unspecified [facility] [place] [facility] Diagnosis Radiculopathy, lumbar region- Primary Thoracic or lumbosacral neuritis or radiculitis, unspecified Radiculopathy, lumbar region Thoracic or lumbosacral neuritis or radiculitis, unspecified [facility] [place] [facility]* Diagnosis Spinal stenosis, lumbar region, without neurogenic claudication Chronic bilateral low back pain with bilateral sciatica Radiculopathy, lumbar region Thoracic or lumbosacral neuritis or radiculitis, unspecified [facility] [place] [facility]* Diagnosis Spinal stenosis, lumbar region, without neurogenic claudication Chronic bilateral low back pain with bilateral sciatica Radiculopathy, lumbar region Thoracic or lumbosacral neuritis or radiculitis, unspecified [facility] High risk medication use- Primary Encounter for long-term (current) use of other medications 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 Spinal stenosis, lumbar region, without neurogenic claudication Lumbar sprain, sequela Chronic bilateral low back pain with bilateral sciatica Radiculopathy, lumbar region Thoracic or lumbosacral neuritis or radiculitis, unspecified [facility] [place] [facility] Diagnosis Spinal stenosis, lumbar region, without neurogenic claudication Chronic bilateral low back pain with bilateral sciatica [facility] [place] [facility] Diagnosis Spinal stenosis, lumbar region, without neurogenic claudication Chronic bilateral low back pain with bilateral sciatica [facility] [place] [facility] Diagnosis Spinal stenosis, lumbar region, without neurogenic claudication Chronic bilateral low back pain with bilateral sciatica 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 Lumbar sprain, sequela High risk medication use Encounter for long-term (current) use of other medications [facility] [place] [facility]* Diagnosis Lumbar sprain, sequela- Primary Spinal stenosis, lumbar region, without neurogenic claudication Chronic bilateral low back pain with bilateral sciatica High risk medication use Encounter for long-term (current) use of other medications [facility] [place] [facility] Diagnosis Spinal stenosis, lumbar region, without neurogenic claudication Chronic bilateral low back pain with bilateral sciatica [facility] Diagnosis Spinal stenosis, lumbar region, without neurogenic claudication Chronic bilateral low back pain with bilateral sciatica [facility] [place] [facility] Diagnosis Lumbar sprain, sequela- Primary Strain of tendon of right rotator cuff, sequela Spinal stenosis, lumbar region, without neurogenic claudication Chronic bilateral low back pain with bilateral sciatica Type 2 diabetes mellitus without complication, with long-term current use of insulin (HCC) [facility] [place] [facility] Diagnosis Spinal stenosis, lumbar region, without neurogenic claudication [facility] Diagnosis Spinal stenosis, lumbar region, without neurogenic claudication documented in this encounter [facility] Summary Purpose Family History No Family History Records FoundNo Family History Records FoundNo Family History Records FoundNo Family History Records FoundNo Family History Records Found Advance Directives No Advanced Directives Records FoundDocuments on File Type Date Recorded 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 Expl 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 Advance Directive(s) 05/12/2015 11:59 AM Advance Directive(s) 04/30/2015 10:47 AM Additional Source Comments INFORMATION SOURCE (unrecogn ized section and content) DATE CREATED AUTHOR AUTHOR'S ORGANIZ ATION 10/08/2020 [facility] DATE CREATED AUTHOR AUTHOR'S ORGANIZ ATION 05/17/2021 [facility] [place] DATE CREATED AUTHOR AUTHOR'S ORGANIZ ATION 09/07/2022 [facility] DATE CREATED AUTHOR AUTHOR'S ORGANIZ ATION 01/20/2023 [facility] Source Comments (unrecognize d section and content) In the event this informatio n is protected by the Federal Confidentiality of Alcohol and Drug Abuse Patient Records regulations: The Federal rules restrict any use of the information to criminally investigate or prosecute any alcohol or drug abuse patient.[facility] the event this information is protected by the Federal Confidentiality of Alcohol and Drug Abuse Patient Records regulations: The Federal rules restrict any use of the information to criminally investigate or prosecute any alcohol or drug abuse patient.[facility] HospitalIn the event this information is protected by the Federal Confidentiality of Alcohol and Drug Abuse Patient Records regulations: The Federal rules restrict any use of the information to criminally investigate or prosecute any alcohol or drug abuse patient.[facility] Hospital[facility] the event this information is protected by the Federal Confidentiality of Alcohol and Drug Abuse Patient Records regulations: The Federal rules restrict any use of the information to criminally investigate or prosecute any alcohol or drug abuse patient.[facility] HospitalIn the event this information is protected by the Federal Confidentiality of Alcohol and Drug Abuse Patient Records regulations: The Federal rules restrict any use of the information to criminally investigate or prosecute any alcohol or drug abuse patient.[facility] HospitalIn the event this information is protected by the Federal Confidentiality of Alcohol and Drug Abuse Patient Records regulations: The Federal rules restrict any use of the information to criminally investigate or prosecute any alcohol or drug abuse patient.[facility] HospitalIn the event this information is protected by the Federal Confidentiality of Alcohol and Drug Abuse Patient Records regulations: The Federal rules restrict any use of the information to criminally investigate or prosecute any alcohol or drug abuse patient.[facility] HospitalIn the event this information is protected by the Federal Confidentiality of Alcohol and Drug Abuse Patient Records regulations: The Federal rules restrict any use of the information to criminally investigate or prosecute any alcohol or drug abuse patient.[facility] HospitalIn the event this information is protected by the Federal Confidentiality of Alcohol and Drug Abuse Patient Records regulations: The Federal rules restrict any use of the information to criminally investigate or prosecute any alcohol or drug abuse patient.[facility] HospitalIn the event this information is protected by the Federal Confidentiality of Alcohol and Drug Abuse Patient Records regulations: The Federal rules restrict any use of the information to criminally investigate or prosecute any alcohol or drug abuse patient.[facility] HospitalIn the event this information is protected by the Federal Confidentiality of Alcohol and Drug Abuse Patient Records regulations: The Federal rules restrict any use of the information to criminally investigate or prosecute any alcohol or drug abuse patient.[facility] HospitalIn the event this information is protected by the Federal Confidentiality of Alcohol and Drug Abuse Patient Records regulations: The Federal rules restrict any use of the information to criminally investigate or prosecute any alcohol or drug abuse patient.[facility] HospitalIn the event this information is protected by the Federal Confidentiality of Alcohol and Drug Abuse Patient Records regulations: The Federal rules restrict any use of the information to criminally investigate or prosecute any alcohol or drug abuse patient.[facility] HospitalIn the event this information is protected by the Federal Confidentiality of Alcohol and Drug Abuse Patient Records regulations: The Federal rules restrict any use of the information to criminally investigate or prosecute any alcohol or drug abuse patient.[facility] HospitalIn the event this information is protected by the Federal Confidentiality of Alcohol and Drug Abuse Patient Records regulations: The Federal rules restrict any use of the information to criminally investigate or prosecute any alcohol or drug abuse patient.[facility] HospitalIn the event this information is protected by the Federal Confidentiality of Alcohol and Drug Abuse Patient Records regulations: The Federal rules restrict any use of the information to criminally investigate or prosecute any alcohol or drug abuse patient.[facility] HospitalIn the event this information is protected by the Federal Confidentiality of Alcohol and Drug Abuse Patient Records regulations: The Federal rules restrict any use of the information to criminally investigate or prosecute any alcohol or drug abuse patient.[facility] HospitalIn the event this information is protected by the Federal Confidentiality of Alcohol and Drug Abuse Patient Records regulations: The Federal rules restrict any use of the information to criminally investigate or prosecute any alcohol or drug abuse patient.[facility] HospitalIn the event this information is protected by the Federal Confidentiality of Alcohol and Drug Abuse Patient Records regulations: The Federal rules restrict any use of the information to criminally investigate or prosecute any alcohol or drug abuse patient.[facility] HospitalIn the event this information is protected by the Federal Confidentiality of Alcohol and Drug Abuse Patient Records regulations: The Federal rules restrict any use of the information to criminally investigate or prosecute any alcohol or drug abuse patient.[facility] HospitalIn the event this information is protected by the Federal Confidentiality of Alcohol and Drug Abuse Patient Records regulations: The Federal rules restrict any use of the information to criminally investigate or prosecute any alcohol or drug abuse patient.[facility] HospitalIn the event this information is protected by the Federal Confidentiality of Alcohol and Drug Abuse Patient Records regulations: The Federal rules restrict any use of the information to criminally investigate or prosecute any alcohol or drug abuse patient.[facility] HospitalIn the event this information is protected by the Federal Confidentiality of Alcohol and Drug Abuse Patient Records regulations: The Federal rules restrict any use of the information to criminally investigate or prosecute any alcohol or drug abuse patient.[facility] HospitalIn the event this information is protected by the Federal Confidentiality of Alcohol and Drug Abuse Patient Records regulations: The Federal rules restrict any use of the information to criminally investigate or prosecute any alcohol or drug abuse patient.[facility] HospitalIn the event this information is protected by the Federal Confidentiality of Alcohol and Drug Abuse Patient Records regulations: The Federal rules restrict any use of the information to criminally investigate or prosecute any alcohol or drug abuse patient.[facility] HospitalIn the event this information is protected by the Federal Confidentiality of Alcohol and Drug Abuse Patient Records regulations: The Federal rules restrict any use of the information to criminally investigate or prosecute any alcohol or drug abuse patient.[facility] the event this information is protected by the Federal Confidentiality of Alcohol and Drug Abuse Patient Records regulations: The Federal rules restrict any use of the information to criminally investigate or prosecute any alcohol or drug abuse patient.[facility] HospitalIn the event this information is protected by the Federal Confidentiality of Alcohol and Drug Abuse Patient Records regulations: The Federal rules restrict any use of the information to criminally investigate or prosecute any alcohol or drug abuse patient.[facility] HospitalIn the event this information is protected by the Federal Confidentiality of Alcohol and Drug Abuse Patient Records regulations: The Federal rules restrict any use of the information to criminally investigate or prosecute any alcohol or drug abuse patient.[facility] HospitalIn the event this information is protected by the Federal Confidentiality of Alcohol and Drug Abuse Patient Records regulations: The Federal rules restrict any use of the information to criminally investigate or prosecute any alcohol or drug abuse patient.[facility] HospitalIn the event this information is protected by the Federal Confidentiality of Alcohol and Drug Abuse Patient Records regulations: The Federal rules restrict any use of the information to criminally investigate or prosecute any alcohol or drug abuse patient.[facility] HospitalIn the event this information is protected by the Federal Confidentiality of Alcohol and Drug Abuse Patient Records regulations: The Federal rules restrict any use of the information to criminally investigate or prosecute any alcohol or drug abuse patient.[facility] HospitalIn the event this information is protected by the Federal Confidentiality of Alcohol and Drug Abuse Patient Records regulations: The Federal rules restrict any use of the information to criminally investigate or prosecute any alcohol or drug abuse patient.[facility] HospitalIn the event this information is protected by the Federal Confidentiality of Alcohol and Drug Abuse Patient Records regulations: The Federal rules restrict any use of the information to criminally investigate or prosecute any alcohol or drug abuse patient.[facility] HospitalIn the event this information is protected by the Federal Confidentiality of Alcohol and Drug Abuse Patient Records regulations: The Federal rules restrict any use of the information to criminally investigate or prosecute any alcohol or drug abuse patient.[facility] Reason for Visit (unrecogniz ed section and content) Specialty Diagnoses / Procedures Referred By Scarlett moses Referred To Contact PAIN MANAGEMENT Diagnoses Unspecified sprain of right shoulder joint, initial encounter S43.401A, S33.5XXA, S40.011A, S50.11XA, S30.0XA, S46.011A, M54.17, S43.431A, M25.811, M51.27, M75.41, M19.077, M48.061 Procedures EST PATIENT VISIT LEVEL 1 Yojana Madden APRN.ADMINISTRATIVE CLERK [address] [address] [facility] [address] [place] [address] Referral ID Status Reason Start Date Expiration Date Visits Re quested Visits Authorized [id number] Closed 05/17/2022 08/15/2022 1 1 Specialty Diagnoses / Procedures Referred By Scarlett moses Referred To Contact Internal Medicine / PAIN MANAGEMENT Diagnoses 3 Month Follow Up Procedures REFERRAL TO [facility] FINANCIAL COUNSELOR EST PATIENT Self Yojana Madden, [employer] MECHANIC.ADMINISTRATIVE CLERK [address] [place] [address] Referral ID Status Reason Start Date Expiration Date V isits Requested Visits Authorized [id number] Closed Financial Clearance Not Required 02/15/2022 05/14/2022 1 1 Reason Onset Date Comments Refill Request 07/26/2021 Reason Onset Date Comments Refill Request 09/16/2021 Reason Onset Date Comments Refill Request 09/19/2021 Reason Onset Date Comments Refill Request 10/19/2021 Reason Onset Date Comments Refill Request 10/24/2021 Reason Comments Orders Reason Comments Regarding Procedure Reason Comments Patient Update Reason Comments Bwc (Worker's Comp) Reason Comments Returning Patient's Call Reason Onset Date Comments Refill Request 12/19/2021 Reason Onset Date Comments Refill Request 01/16/2022 Reason Onset Date Comments Refill Request 03/22/2022 Reason Onset Date Comments Refill Request 04/21/2022 Specialty Diagnoses / Procedures Referred By Contac t Referred To Contact Internal Medicine / PAIN MANAGEMENT Diagnoses 3 month follow up Procedures EST PATIENT Yojana Madden, [employer] MECHANIC.ADMINISTRATIVE CLERK [address] [place] [address] Yojana Madden, [employer] MECHANIC.ADMINISTRATIVE CLERK [address] [place] [address] Referral ID Status Reason Start Date Expiration Date Visits Requested Visits Authorized [id number] Pending Review Patient Cleared - Admin/Chair man/Directo r advise to proceed 05/17/2022 08/15/2022 1 1 Reason Comments med pa Reason Comments xtampza approval Reason Comments C-9 Status Reason Onset Date Comments Refill Request 09/20/2022 Reason Onset Date Comments Refill Request 10/18/2022 Specialty Diagnoses / Procedures Referred By Contac t Referred To Contact PAIN MANAGEMENT Diagnoses Unspecified sprain of right shoulder joint, initial encounter S43.401A, S33.5XXA, S40.011A, S50.11XA, S30.0XA, S46.011A, M54.17, S43.431A, M25.811, M51.27, M75.41, M19.077, M48.061 Procedures REFERRAL TO [facility] FINANCIAL COUNSEL[facility] UDS [id number], [id number], [id number], [id number] Yojana Madden, [employer] G[employer] MECHANIC.ADMINISTRATIVE CLERK [address] [place] [address] [facility] [address] [place] [address] Referral ID Status Reason Start Date Expiration Date Visits Re quested Visits Authorized [id number] Closed 08/16/2022 11/14/2022 1 1 Reason Comments Radiology US Reason Onset Date Comments Refill Request 12/16/2022 Reason Onset Date Comments Refill Request 01/14/2023 Care Teams (unrecognized sec tion and content) Cotton Agent Relationship Specialty Start Date End Date Janusz Elaine CNP [address] [place] [address] PCP - General Internal Medicine 03/28/21 Cotton Agent Relationship Specialty Start Date End Date Janusz Elaine CNP [address] [place] [address] PCP - General Internal Medicine 03/28/21 Cotton Agent Relationship Specialty Start Date End Date Janusz Elaine CNP [address] [place] [address] PCP - General Internal Medicine 03/28/21 Cotton Agent Relationship Specialty Start Date End Date Janusz Elaine CNP [address] [place] [address] PCP - General Internal Medicine 03/28/21 Cotton Agent Relationship Specialty Start Date End Date Janusz Elaine CNP [address] [place] [address] PCP - General Internal Medicine 03/28/21 Cotton Agent Relationship Specialty Start Date End Date Janusz Elaine, LEGAL COORDINATOR [address] [facility] [place] [place] [address] PCP - General Internal Medicine 03/28/21 Cotton Agent Relationship Specialty Start Date End Date Janusz Elaine, LEGAL COORDINATOR [address] [place] [address] PCP - General Internal Medicine 03/28/21 Cotton Agent Relationship Specialty Start Date End Date Janusz Elaine, LEGAL COORDINATOR [address] [place] [address] PCP - General Internal Medicine 03/28/21 Cotton Agent Relationship Specialty Start Date End Date Mahamed Jauregui NP [address] [place] [address] PCP - General Family Medicine 12/02/21 Cotton Agent Relationship Specialty Start Date End Date Mahamed Jauregui NP [address] [place] [address] PCP - General Family Medicine 12/02/21 Cotton Agent Relationship Specialty Start Date End Date Mahamed Jauregui NP [address] [place] [address] PCP - General Family Medicine 12/02/21 Cotton Agent Relationship Specialty Start Date End Date Mahmaed Jauregui NP [address] [place] [address] PCP - General Family Medicine 12/02/21 Cotton Agent Relationship Specialty Start Date End Date Mahamed Jauregui NP [address] [place] [address] PCP - General Family Medicine 12/02/21 Cotton Agent Relationship Specialty Start Date End Date Mahamed Jauregui NP [address] [place] [address] PCP - General Family Medicine 12/02/21 Cotton Agent Relationship Specialty Start Date End Date Mahamed Jauregui NP [address] [place] [address] PCP - General Family Medicine 12/02/21 Cotton Agent Relationship Specialty Start Date End Date Mahamed Jauregui NP [address] [place] [address] PCP - General Family Medicine 12/02/21 Cotton Agent Relationship Specialty Start Date End Date Mahamed Jauregui NP [address] [place] [address] PCP - General Family Medicine 12/02/21 Cotton Agent Relationship Specialty Start Date End Date Mahamed Jauregui NP [address] [place] [address] PCP - General Family Medicine 12/02/21 Cotton Agent Relationship Specialty Start Date End Date Mahamed Jauregui NP [address] [place] [address] PCP - General Family Medicine 12/02/21 Cotton Agent Relationship Specialty Start Date End Date Mahamed Jauregui NP PCP - General Family Medicine 12/02/21 Cotton Agent Relationship Specialty Start Date End Date Mahamed Jauregui NP PCP - General Family Medicine 12/02/21 Cotton Agent Relationship Specialty Start Date End Date Mahamed Jauregui NP PCP - General Family Medicine 12/02/21 Cotton Agent Relationship Specialty Start Date End Date Mahamed Jauregui NP PCP - General Family Medicine 12/02/21 Cotton Agent Relationship Specialty Start Date End Date Mahamed Jauregui NP PCP - General Family Medicine 12/02/21 Cotton Agent Relationship Specialty Start Date End Date Mahamed Jauregui NP PCP - General Family Medicine 12/02/21 Cotton Agent Relationship Specialty Start Date End Date Mahamed Jauregui NP PCP - General Family Medicine 12/02/21 Cotton Agent Relationship Specialty Start Date End Date Mahamed Jauregui NP PCP - General Family Medicine 12/02/21 Cotton Agent Relationship Specialty Start Date End Date Mahamed Jauregui NP PCP - General Family Medicine 12/02/21 FOR RECORDS PERTAINING TO PATIENTS WHO ARE OR HAVE BEEN ENROLLED IN A CHEMICAL DEPENDENCY/SUBSTANCEABUSE PROGRAM, SOME INFORMATION MAY BE OMITTED. This clinical summary was aggregated from multiple sources. Caution should be exercised in using it in the provision of clinical care. This summary normalizes information from multiple sources, and as a consequence, information in this document may materially change the coding, format and clinical context of patient data. In addition, data may be omitted in some cases. CLINICAL DECISIONS SHOULD BE BASED ON THE PRIMARY CLINICAL RECORDS. [facility]. provides no warranty or guarantee of the accuracy or completeness of information in this document.
[2023-02-02 10:00] LABS: Absolute Lymphocyte Count 2.85 X10^3/uL (0.83-4.51); Absolute Neutrophil Count 2.5 X10^3/uL (2.0-7.7); Basophil# 0.04 X10^3/uL; Basophil% 0.6 % (0-1); Eosinophil# 0.26 X10^3/uL; Eosinophils% 4.2 % (0-5); Hematocrit 39.6 % (37-47); Hemoglobin 12.7 g/dL (12.0-15.0); Lymphocyte # 2.85 X10^3/ul (0.83-4.51); Lymphocyte % 46.3 % (19-41); Mean Corp Hgb Conc 32.1 g/dL (32-36); Mean Corpuscular Hgb 28.7 pg (27.0-32.0); Mean Corpuscular Volume 89.6 fL (81-99); Monocyte# 0.47 X10^3/uL; Monocyte% 7.6 % (0-10); NRBC Flagged by Analyzer 0 % (0-5); Neutrophil # 2.53 X10^3/uL (2.7-7.7); Neutrophil % 41.1 % (47-70); Platelet Count 194 K/mm3 (150-450); RBC Distribution Width CV 16.7 % (11.6-14.6); RBC Distribution Width SD 53.8 fl (35.1-43.9); Red Blood Count 4.42 M/mm3 (4.2-5.4); White Blood Count 6.2 K/mm3 (4.4-11.0)
[2023-02-02 10:30] LABS: Vitamin D,25 Hydroxy 58.5 ng/mL
[2023-02-02 10:51] LABS: Microalbumin,Random Urine 40.5 mg/L (NO RANGE EST.)
[2023-02-02 11:02] LABS: ALB/GLOB Ratio 0.9 RATIO (0.9-2.4); AST(SGOT) 37 U/L (15-37); Alanine Aminotransfer ALT/SGPT 37 U/L (13-56); Albumin, Serum 3.8 g/dL (3.2-5.0); Alkaline Phosphatase 35 U/L (45-117); Anion Gap 10 (5-15); BUN 13 mg/dL (7-18); BUN/Creat Ratio 8.6 RATIO (10-20); Calcium,Total 10.7 mg/dL (8.5-10.1); Chloride 97 mmol/L (98-107); Creatinine, Serum 1.52 mg/dL (0.55-1.02); EST Glomerular Filtration Rate 37 mL/min (>60); Est Glom Filt Rate - Afr Amer 44 mL/min (>60); Globulin 4.3 g/dL (2.2-4.2); Glucose 117 mg/dL (74-106); Potassium 4.3 mmol/L (3.5-5.1); Protein, Total 8.1 g/dL (6.4-8.2); Sodium Level 133 mmol/L (136-145); Thyroid Stim Hormone (TSH) 3.71 uIU/mL (0.358-3.74)
== END | disposition home or self-care (01) ==
LOC: LAB 09:19
PROVIDERS: Referring Provider Nurse Practitioner Family; Visit Provider Nurse Practitioner Family
DX: I10 Essential (primary) hypertension (principal); E11.65 Type 2 diabetes mellitus with hyperglycemia; E83.52 Hypercalcemia
CPT/HCPCS: 36415; 80053; 82043; 82306; 84443; 85025

== ENCOUNTER → 2023-02-12 | Outpatient (CLI) | payer MEDICARE, SELFPAY ==
[2023-02-12 15:49] LABS: Amphetamine Urine VISTA NEGATIVE (<1000 ng/mL); Barbiturate Urine VISTA NEGATIVE (< 200 ng/mL); Benzodiazepine Urine VISTA NEGATIVE (< 200 ng/mL); Cocaine Urine VISTA NEGATIVE (< 300 ng/mL); Ecstacy Urine VISTA NEGATIVE (< 500 ng/mL); Methadone Urine VISTA NEGATIVE (< 300 ng/mL); PCP Urine VISTA NEGATIVE (< 25 ng/mL); THC Urine VISTA NEGATIVE (< 50 ng/mL); Vista UDS pH Range 6
== END | disposition home or self-care (01) ==
PROVIDERS: Referring Provider Anesthesiology Pain Medicine; Visit Provider Anesthesiology Pain Medicine
DX: Z79.899 Other long term (current) drug therapy (principal); Z79.891 Long term (current) use of opiate analgesic
CPT/HCPCS: 80307

== ENCOUNTER 2023-02-16 14:06 | Emergency (ER) | payer MEDICARE, SELFPAY ==
[2023-02-16 14:07] VITALS: BP 173/68; PULSE 82; RESP 16; TEMP 35.6; O2SAT 98; BMI 32.0
--- NOTE | 2023-02-16 14:15 | EDS_ITS ---
HPI History of Present Illness Chief Complaint: Head Injury Informant: patient Onset/Context/Timing Onset: Days (3) Mechanism/Context: Fall Quality of Pain: Aching Location: Left parietal area, left elbow, and left knee Worsened by: Nothing Relieved by: Nothing Associated Symptoms Associated Symptoms: Positive for Parasthesias; Negative for Weakness, Loss of function, Inability to ambulate, Loss of consciousness or Amnesia Narrative Narrative: Patient presents with head injury after a fall 3 days ago. Patient tripped over her oxygen tubing and landed on her left side. Patient complains of pain over her left parietal area, left elbow, and left knee. Patient denies any head injury or loss of consciousness. Patient states nothing makes her pain better and nothing makes it worse. Patient describes her pain as aching. Patient states that she just started developing some paresthesias in her left hand and left forearm. Patient denies any weakness. Patient denies any nausea or vomiting. Patient denies any visual changes. Tetanus Immunization: <[address] 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 GFR 30-59 Vitamin D deficiency Home Medications multivitamin with folic acid 400 mcg tablet 1 tab PO DAILY supplement 06/13/13 [History Last Taken 01/31/21] pravastatin 80 mg tablet 80 mg PO QHS cholesterol 06/13/13 [History Last Taken 01/31/21] dexlansoprazole 60 mg capsule,biphase delayed release 60 mg PO QHS acid reflux 10/30/19 [History Last Taken 01/31/21] losartan 25 mg tablet 25 mg PO DAILY blood pressure 04/20/20 [History Last Taken 01/31/21] polyethylene glycol 3350 17 gram oral powder packet (Miralax) 17 g PO .3xweek constipation 04/20/20 [History Last Taken Unknown] aspirin 81 mg tablet,delayed release (Adult Low Dose Aspirin) 81 mg PO DAILY heart health 05/06/20 [History Last Taken 01/31/21] famotidine 20 mg tablet 20 mg PO BID reflux 05/06/20 [History Last Taken 01/31/21] oxycodone-acetaminophen 5 mg-325 mg tablet (Percocet) 1 tab PO TID PRN Pain Or Fever 05/06/20 [History Last Taken 01/31/21] pregabalin 100 mg capsule 100 mg PO TID neuropathy 05/06/20 [History Last Taken 01/31/21] sennosides 15 mg tablet 15 mg PO BID PRN Constipation 01/31/21 [History Last Taken Unknown] vitamin B complex 1 cap PO DAILY supplement 01/31/21 [History Last Taken 01/31/21] ascorbate calcium (vitamin C) 500 mg tablet 500 mg PO DAILY 07/26/21 [History Last Taken Unknown] cholecalciferol (vitamin D3) 50 mcg (2,000 unit) capsule 50 mcg PO DAILY 07/26/21 [History Last Taken Unknown] meloxicam 7.5 mg tablet ea PO 07/26/21 [History Last Taken Unknown] oxycodone myristate 13.5 mg capsule sprinkle extend release 12hr(DON'T CRUSH) (Xtampza ER) 13.5 mg PO BID 07/26/21 [History Last Taken Unknown] zinc sulfate 25 mg zinc (110 mg) tablet 25 mg PO DAILY 07/26/21 [History Last Taken Unknown] metformin 1,000 mg tablet 1,000 mg PO BID diabetes #180 tabs 05/30/22 [Rx Last Taken Unknown] Lantus U-100 Insulin 100 unit/mL subcutaneous solution (insulin glargine) 45 unit (0.45 mL) subcut QHS diabetes #10 mL 07/04/22 [Rx Last Taken Unknown] glimepiride 4 mg tablet 4 mg PO DAILY #90 tabs 11/20/22 [Rx Last Taken Unknown] Prolia 60 mg/mL subcutaneous syringe (denosumab) 60 mg subcut [id number] #1 mL 12/04/22 [Rx Last Taken Unknown] insulin lispro 100 unit/mL subcutaneous pen (Humalog KwikPen (U-100) Insulin) 8 unit (0.08 mL) subcut TID #15 mL 12/04/22 [Rx Last Taken Unknown] Allergy/AdvReac Type Severity Reaction Status Date / Time bee venom protein (honey bee) Allergy Severe edema Verified 02/16/23 14:09 Family History Mother Arthritis Diabetes Heart disease Hypertension High cholesterol Sister Asthma Arthritis Diabetes Grandmother Colon cancer Aunt Lupus Daughter Seizures Sister Diabetes Surgical History History of History of cholecystectomy History of discectomy History of fusion of cervical spine History of hysterectomy history right shoulder surgery Social History household members: spouse Smoking Status: Former smoker how long ago did patient quit smokin year ago alcohol intake: never substance use type: does not use caffeine: Yes Type: carbonated beverages Number of servings: 1 ROS ROS ED Constitutional Constitutional ED: Denies chills or fever(s) Eyes Eyes: Denies blurry vision or change in vision ENT ENT ED: Reports rhinorrhea and sore throat Cardiovascular Cardiovascular: Denies chest pain or palpitations Respiratory/Chest Respiratory/Chest: Denies cough or dyspnea Gastrointestinal Gastrointestinal: Denies nausea or vomiting Genitourinary Genitourinary ED: Reports difficulty urinating; Denies dysuria or hematuria Musculoskeletal Musculoskeletal: Reports back pain; Denies neck pain Integumentary Denies abscess or rash Neurologic Neurologic: Reports headache(s); Denies weakness Allergic/Immunologic Allergic/Immunologic ED: Denies mouth swelling or urticaria EXAM Physical Exam Const Vital Signs: 02/16/23 14:07 02/16/23 14:28 Temperature 96.0 F L Temperature Source Temporal Pulse Rate 82 Respiratory Rate 16 Respiratory Effort Normal Respiratory Pattern Normal Blood Pressure 173/68 H Blood Pressure Mean 103 Pulse Ox 98 Oxygen Delivery Method Room Air Room Air Positive well nourished, well developed and obese General Appearance ED: well developed and NAD Nutritional Appearance: obese HEENT HEENT Narrative: There is mild tenderness over the left parietal area. There is no edema or ecchymosis. There is no hematoma noted. There is no bony crepitance or step- off noted. There are no lacerations noted. tenderness Eyes PERRL and EOMs intact bilaterally Neck full ROM General: Negative for tenderness Resp normal respiratory effort and clear to auscultation bilaterally Cardio regular rhythm Rate: regular rate GI non-tender and non-distended Palpation: soft Extremity Extremity Narrative: There is tenderness and a superficial abrasion over the posterior aspect of the left elbow. There is no deformity noted. Range of motion was slightly limited in all motions of the left elbow secondary to pain. There is also mild tenderness over the anterior aspect of the left knee. There is a superficial abrasion over the anterior lateral aspect of the left knee. There is no joint effusion. There is good range of motion. There is no laxity appreciated. Strength is 5/5 bilaterally in the upper and lower extremities. There are no sensory deficits noted. General Extremety ED: Negative for edema General Extremity: Negative for edema Neuro oriented x3, CN's II-XII intact bilaterally, moves all extremities, no focal motor deficits and no sensory deficits noted Concepcion Coma Scale: document GCS findings Spontaneous Obeys Commands Oriented 15 Sensorium / Orientation: alert Motor Exam: strength 5/5 throughout Psych mental status grossly normal and thought process normal Skin Skin Narrative: There are superficial abrasions over the posterior aspect of the left elbow and anterolateral aspect of the left knee. There is no bleeding noted. There are no foreign bodies noted. MDM MDM MDM Narrative Medical decision making narrative: Differential diagnosis includes intracranial bleeding, skull fracture, left elbow fracture, left elbow contusion, left knee fracture, and left knee contusion. CT scan of the brain will be obtained to assess for intracranial bleeding and cranial fracture. X-rays of the left elbow will be obtained to assess for left elbow fracture. X-rays of the left knee will be obtained to assess for occult patella fracture. Radiography Diagnostic Testing: Clinical Impression(s) from Imaging Studies Brain CT 02/16/23 14:23 IMPRESSION: Normal unenhanced CT scan of the brain. Electronically Signed: Zafar Sue MD at 14:50 EST , Knee X-Ray 02/16/23 14:23 IMPRESSION: Normal x-ray examination of the knee. Electronically Signed: Zafar Sue MD at 15:10 EST , Elbow X-Ray 02/16/23 14:41 IMPRESSION: Normal x-ray examination of the elbow. Electronically Signed: Zafar Sue MD at 15:10 EST , CT scan of the brain was obtained. There is no acute intracranial abnormality. This was interpreted by the radiologist and was also independently reviewed by myself. X-rays of the left knee were obtained. There are 4 views. On my independent interpretation, there is no acute fracture or dislocation noted. There is no soft tissue swelling noted. Radiologist also interpreted the x-rays and agrees. X-rays of the left elbow were obtained. There are 3 views. On my independent interpretation, there is no acute fracture or dislocation noted. There is no joint effusion. There is no fat pad sign noted. Radiologist also interpreted the x-rays and agrees. Treatment and Re-Evaluation Narrative: Patient was advised of her findings. Patient was given head injury instructions. Patient was instructed to use ice to her elbow and knee. Patient was instructed to take Tylenol or ibuprofen as needed for pain. Patient was instructed to follow-up with her primary care physician in 5 to 7 days. Patient understood and was agreeable with the plan. All questions were answered. Discharge Plan Triage Chief Complaint: Head Injury ED Provider: Stef Cagle Dx/Rx/DC Orders Clinical Impression: Closed head injury, Contusion of left elbow, initial encounter, Contusion of left knee, initial encounter Instructions: ED Contusion, Elbow, ED Head Injury (Adult) Prescriptions: No Action oxycodone-acetaminophen [Percocet] 5-325 mg tablet 1 tab PO TID PRN (Reason: Pain Or Fever) pregabalin 100 mg capsule 100 mg PO TID Patient Comments: TAKE 1 CAPSULE BY MOUTH TWICE DAILY aspirin [Adult Low Dose Aspirin] 81 mg tablet,delayed release (DR/EC) 81 mg PO DAILY losartan 25 mg tablet 25 mg PO DAILY Hold Instructions: Hold for 1 week with repeat BMP in 1 week until kidney function returns to normal. Follow-up PCP polyethylene glycol 3350 [Miralax] 17 gram powder in packet 17 g PO .3xweek famotidine 20 mg tablet 20 mg PO BID meloxicam 7.5 mg tablet PO Patient Comments: TAKE 1 TABLET BY MOUTH TWICE A DAY Xtampza ER 13.5 mg cap,sprinkl,ER12hr(DONT CRUSH) 13.5 mg PO BID Rx Instructions: must administer with a meal/food ascorbate calcium (vitamin C) 500 mg tablet 500 mg PO DAILY cholecalciferol (vitamin D3) 50 mcg (2,000 unit) capsule 50 mcg PO DAILY zinc sulfate 25 mg zinc (110 mg) tablet 25 mg PO DAILY insulin glargine [Lantus U-100 Insulin] 100 unit/mL solution 45 unit SC QHS Qty: 10 0RF Prolia 60 mg/mL syringe 60 mg subcut [id number] Qty: 1 1RF insulin lispro [Humalog KwikPen Insulin] 100 unit/mL insulin pen 8 unit subcut TID MDD 32 units Qty: 15 6RF Rx Instructions: plus sliding scale pravastatin 80 MG tablet 80 mg PO QHS multivitamin with folic acid 1 TABLET tablet 1 tab PO DAILY dexlansoprazole 60 mg capsule,biphase delayed releas 60 mg PO QHS sennosides 15 mg Tablet 15 mg PO BID PRN (Reason: Constipation) vitamin B complex Capsule 1 cap PO DAILY metformin 1,000 mg tablet 1,000 mg PO BID Qty: 180 1RF glimepiride 4 mg tablet 4 mg PO DAILY Qty: 90 3RF Primary [facility] - 5-7 Days Disposition Disposition: Home, Self Care
--- NOTE | 2023-02-16 14:23 | RAD_ITS ---
STUDY: X-RAY - LEFT KNEE REASON FOR EXAM: Female, 62 years old. Injury/Pain TECHNIQUE: 4 view(s) of the knee. COMPARISON: None. FINDINGS: Normal visualized distal femur. Normal visualized proximal tibia and fibula. Normal proximal tibiofibular articulation. Normal medial femorotibial compartment. Normal lateral femorotibial compartment. Normal patellofemoral articulation. The soft tissue structures are unremarkable. RAD/Knee 4 or More Views IMPRESSION: Normal x-ray examination of the knee. Electronically Signed: Zafar Sue MD at 15:10 EST ,
--- NOTE | 2023-02-16 14:23 | CT_ITS ---
STUDY: CT BRAIN WITHOUT CONTRAST REASON FOR EXAM: Female, 62 years old. Posterior head injury due to a fall. RADIATION DOSAGE (If Supplied By Facility): CTDIvol = ( 44.99 ) mGy, DLP = ( 745.49 ) mGycm TECHNIQUE: Transaxial CT imaging of the brain was performed without administration of intravenous contrast material. Individualized dose optimization techniques were used for this CT. COMPARISON: Comparison is made with prior study September 03, 2020. FINDINGS: Normal soft tissue structures. There is hyperostosis frontalis internus. Normal size ventricles and extra-axial spaces for the patient''s age. Normal white matter tracts of the cerebral hemispheres. Normal basal ganglia and thalami. Normal brainstem. Normal cerebellum. There is no intracranial hemorrhage. There are no findings of an acute ischemic infarction. Atherosclerotic calcification of the cavernous portions of the internal carotid arteries bilaterally. Normal visualized paranasal sinuses. CT/Brain/Head without Contrast IMPRESSION: Normal unenhanced CT scan of the brain. Electronically Signed: Zafar Sue MD at 14:50 EST ,
--- NOTE | 2023-02-16 14:41 | RAD_ITS ---
STUDY: X-RAY - LEFT ELBOW REASON FOR EXAM: Female, 62 years old. Injury/Pain TECHNIQUE: 3 view(s) of the elbow. COMPARISON: None. FINDINGS: Normal visualized humerus, radius and ulna. Normal radiocapitellar and ulnotrochlear articulations. The soft tissue structures are unremarkable. RAD/Elbow min 3 Views IMPRESSION: Normal x-ray examination of the elbow. Electronically Signed: Zafar Sue MD at 15:10 EST ,
== END 2023-02-16 15:49 | disposition home or self-care (01) ==
PROVIDERS: Emergency Provider Emergency Medicine; Visit Provider Emergency Medicine
DX: S09.90XA Unspecified injury of head, initial encounter (principal); E11.9 Type 2 diabetes mellitus without complications; S50.02XA Contusion of left elbow, initial encounter; S80.02XA Contusion of left knee, initial encounter; E66.9 Obesity, unspecified; W19.XXXA Unspecified fall, initial encounter; Z87.891 Personal history of nicotine dependence
CPT/HCPCS: 70450; 73080; 73564; 99282

== ENCOUNTER → 2023-02-28 | Outpatient (CLI) | payer OTHER, SELFPAY ==
--- NOTE | 2023-02-28 13:42 | RAD_ITS ---
STUDY: X-RAY - LUMBAR SPINE REASON FOR EXAM: Female, 62 years old. DEGENERATIVE DISC DISEASE TECHNIQUE: 4 view(s) of the lumbar spine were obtained. COMPARISON: None FINDINGS: There is straightening of the normal lumbar lordosis. There is a levoscoliosis of the lumbar spine. There is a normal alignment of the vertebrae in the lateral view. There is been previous pedicle screw fusion surgery at L3 L4 L5 and S1. Hardware is intact and free of complication. Synthetic disks have been placed at L3-4 and L4-5 also free of complication. There is multilevel endplate spondylosis of the lumbar vertebrae. There is multi-level degenerative disc disease with multi-level disc space narrowing. There is no demonstrated fracture. There is atherosclerotic calcification of the abdominal aorta without a demonstrated aneurysm. RAD/L/S Spine Min 4 Views IMPRESSION: Multilevel degenerative and postsurgical changes, no acute findings Electronically Signed: Neptali Jauregui MD at 16:54 EST ,
== END | disposition home or self-care (01) ==
PROVIDERS: Referring Provider Clinical Nurse Specialist Adult Health; Visit Provider Clinical Nurse Specialist Adult Health
DX: M51.36 Other intervertebral disc degeneration, lumbar region (principal)
CPT/HCPCS: 72110

== ENCOUNTER 2023-05-20 12:39 | Emergency (ER) | payer MEDICARE, SELFPAY ==
[2023-05-20 12:40] VITALS: BP 138/57; PULSE 63; RESP 16; TEMP 36.6; O2SAT 95
--- NOTE | 2023-05-20 12:50 | RAD_ITS ---
STUDY: X-RAY CHEST REASON FOR EXAM: Female, 62 years old. chest pain TECHNIQUE: Single AP portable view of the chest. COMPARISON: 05/03/2021 FINDINGS: Status post anterior cervical discectomy and fusion lower cervical spine. The lungs are clear and expanded. There is no demonstrated pleural abnormality. Normal size heart. Normal mediastinum and nathalie. Normal visualized pulmonary arteries. Normal visualized aortic arch and descending thoracic aorta. Normal visualized thoracic spine. Normal visualized ribs, clavicles, and shoulders. There is no demonstrated abnormality of the visualized soft tissue structures of the upper abdomen. RAD/Chest 1 View (Portable) IMPRESSION: No active disease. Electronically Signed: Pablo Dumont MD at 13:53 EDT ,
--- NOTE | 2023-05-20 12:50 | EKG12_ITS ---
Test Reason : CP/SOB Blood Pressure : / mmHG Vent. Rate : 071 BPM Atrial Rate : 071 BPM P-R Int : 194 ms QRS Dur : 116 ms QT Int : 392 ms P-R-T Axes : -22 -45 -07 degrees QTc Int : 425 ms Normal sinus rhythm Left anterior fascicular block Minimal voltage criteria for LVH, may be normal variant ( [place] product ) Abnormal ECG Confirmed by ALLYSON DEUTSCH, LETTY ([id number]), social media editor MENDY BOYD ([id number]) on 05/22/2023 8:14:40 AM Referred By: Confirmed By:LETTY VALADEZ MD
[2023-05-20 13:05] LABS: Absolute Lymphocyte Count 1.49 X10^3/uL (0.83-4.51); Absolute Neutrophil Count 3.5 X10^3/uL (2.0-7.7); Basophil# 0.04 X10^3/uL; Basophil% 0.7 % (0-1); Eosinophil# 0.17 X10^3/uL; Hematocrit 36.4 % (37-47); Hemoglobin 11.5 g/dL (12.0-15.0); Lymphocyte # 1.49 X10^3/ul (0.83-4.51); Lymphocyte % 26.6 % (19-41); Mean Corp Hgb Conc 31.6 g/dL (32-36); Mean Corpuscular Hgb 29.3 pg (27.0-32.0); Mean Corpuscular Volume 92.9 fL (81-99); Mean Platelet Vol. 9.3 fl (6.2-12.0); Monocyte# 0.39 X10^3/uL; NRBC Flagged by Analyzer 0 % (0-5); Neutrophil # 3.49 X10^3/uL (2.7-7.7); Neutrophil % 62.3 % (47-70); Platelet Count 163 K/mm3 (150-450); RBC Distribution Width CV 15.1 % (11.6-14.6); RBC Distribution Width SD 51.8 fl (35.1-43.9); Red Blood Count 3.92 M/mm3 (4.2-5.4); White Blood Count 5.6 K/mm3 (4.4-11.0)
[2023-05-20 13:08] VITALS: O2SAT 93
[2023-05-20 13:23] LABS: Anion Gap 10 (5-15); BUN 28 mg/dL (7-18); BUN/Creat Ratio 15.1 RATIO (10-20); Calcium,Total 9.9 mg/dL (8.5-10.1); Chloride 97 mmol/L (98-107); Creatinine, Serum 1.85 mg/dL (0.55-1.02); EST Glomerular Filtration Rate 29 mL/min (>60); Est Glom Filt Rate - Afr Amer 35 mL/min (>60); Glucose 131 mg/dL (74-106); Potassium 5.3 mmol/L (3.5-5.1); Sodium Level 129 mmol/L (136-145); Troponin-I HS 5 pg/mL (3.0-54.0)
[2023-05-20 13:26] LABS: BNP,B-Type NATRIURETIC PEPTIDE 110.4 pg/mL (0-100)
[2023-05-20 13:33] VITALS: BP 140/59; PULSE 65; RESP 15; TEMP 36.6; O2SAT 95
[2023-05-20 13:34] VITALS: BMI 32.8
[2023-05-20 13:57] LABS: Mucous, Urine 0 SEEN /hpf (<or=2+); Red Blood Cells-Urine 0 SEEN /hpf (0-5); Squamous Epithelial Cells - UA 0 SEEN /hpf (5-10)
[2023-05-20 14:33] LABS: Color, Urine Yellow (Yellow); Glucose, Dipstick Normal (Normal); Ketone-Dipstick Negative (Negative); Leukocyte Esterase-Dipstick 500 /ul (Negative); Nitrite-Dipstick Positive (Negative); Occult Blood-Urine Negative /ul (Negative); Protein-Dipstick Negative (Negative); Urine Clarity Clear (Clear); Urine Urobilinogen 1 mg/dl (Normal)
[2023-05-20 14:39] LABS: Urine Bilirubin Dipstick 1 mg/dL (Negative)
[2023-05-20 14:40] VITALS: BP 140/59; PULSE 72; RESP 16; O2SAT 99
[2023-05-20] MEDS: Mag Hydrox/Al Hydrox/Simeth 30 ML UDC PO (14:40)
[2023-05-20 14:45] LABS: Bacteria 1+ /hpf (None Seen); White Blood Cells 5-10 SEEN /hpf (0-5)
--- NOTE | 2023-05-20 14:46 | EX.ED.DYSGE1 ---
HPI History of Present Illness Chief Complaint: Chest Pain Narrative Narrative: 62-year-old female presenting with multiple complaints. Patient initially states that she had some atypical chest pain which is retrosternal and burning and she relates to her acid reflux she has had this in the past. She states she takes Dexilant at home. She also takes Pepcid p.o. twice daily for acid reflux. Patient has tried omeprazole and Protonix in the past without relief. Of note she does take meloxicam daily. She also takes 81 mg of aspirin daily. Patient states that a couple of weeks ago she had what she thought was a flu bug. She had bodyaches, fevers, chills recovered. She still has a cough which is not productive anymore but initially was. Patient states that she has felt weak for the last couple of days and having difficulty getting out of bed. Last night she urinated on herself. She states she could not walk yesterday but today she can. She does admit to dysuria and frequency. She is concerned she might have a UTI. [facility] Medical History Abnormal EKG Acute kidney injury REINALDO (acute kidney injury) Arthritis Atypical chest pain Chronic back pain COPD (chronic obstructive pulmonary disease) Depression with anxiety Diabetes mellitus type 2 in obese Essential hypertension Fracture of right wrist GERD (gastroesophageal reflux disease) History of back problems Hypercalcemia Hyperparathyroidism Left anterior fascicular block (LAFB) Leukocytosis Nephrolithiasis Obesity (BMI 30.0-34.9) Occasional tremors Osteoporosis Pneumonia Type 2 diabetes with stage 3 chronic kidney disease GFR 30-59 Vitamin D deficiency Home Medications multivitamin with folic acid 400 mcg tablet 1 tab PO DAILY supplement 06/13/13 [History Last Taken 01/31/21] pravastatin 80 mg tablet 80 mg PO QHS cholesterol 06/13/13 [History Last Taken 01/31/21] dexlansoprazole 60 mg capsule,biphase delayed release 60 mg PO QHS acid reflux 10/30/19 [History Last Taken 01/31/21] aspirin 81 mg tablet,delayed release (Adult Low Dose Aspirin) 81 mg PO DAILY heart health 05/06/20 [History Last Taken 01/31/21] famotidine 20 mg tablet 20 mg PO BID reflux 05/06/20 [History Last Taken 01/31/21] oxycodone-acetaminophen 5 mg-325 mg tablet (Percocet) 1 tab PO TID PRN Pain Or Fever 05/06/20 [History Last Taken 01/31/21] pregabalin 100 mg capsule 100 mg PO TID neuropathy 05/06/20 [History Last Taken 01/31/21] sennosides 15 mg tablet 15 mg PO BID PRN Constipation 01/31/21 [History Last Taken Unknown] vitamin B complex 1 cap PO DAILY supplement 01/31/21 [History Last Taken 01/31/21] ascorbate calcium (vitamin C) 500 mg tablet 500 mg PO DAILY 07/26/21 [History Last Taken Unknown] cholecalciferol (vitamin D3) 50 mcg (2,000 unit) capsule 50 mcg PO DAILY 07/26/21 [History Last Taken Unknown] oxycodone myristate 13.5 mg capsule sprinkle extend release 12hr(DON'T CRUSH) (Xtampza ER) 13.5 mg PO BID 07/26/21 [History Last Taken Unknown] zinc sulfate 25 mg zinc (110 mg) tablet 25 mg PO DAILY 07/26/21 [History Last Taken Unknown] metformin 1,000 mg tablet 1,000 mg PO BID diabetes #180 tabs 05/30/22 [Rx Last Taken Unknown] Prolia 60 mg/mL subcutaneous syringe (denosumab) 60 mg subcut [id number] #1 mL 12/04/22 [Rx Last Taken Unknown] insulin lispro 100 unit/mL subcutaneous pen (Humalog KwikPen (U-100) Insulin) 8 unit (0.08 mL) subcut TID #15 mL 12/04/22 [Rx Last Taken Unknown] Lantus Solostar U-100 Insulin 100 unit/mL (3 mL) subcutaneous pen (insulin glargine) 45 unit (0.45 mL) subcut QAM #15 mL 04/13/23 [Rx Last Taken Unknown] insulin syringe-needle U-100 0.5 mL 31 gauge x 5/16 (BD Insulin Syringe Ultra-Fine) #100 ea 04/13/23 [Rx Last Taken Unknown] losartan 50 mg tablet 50 mg PO BID 05/07/23 [History Last Taken Unknown] magnesium 250 mg tablet 250 mg PO DAILY Leg cramps 05/07/23 [History Last Taken Unknown] meloxicam 7.5 mg tablet 7.5 mg PO BID 05/07/23 [History Last Taken Unknown] cephalexin 500 mg capsule 500 mg PO Q12 #14 CAPSULES 05/20/23 [Rx Last Taken Unknown] sucralfate 100 mg/mL oral suspension (Carafate) 10 ml PO BID PRN epigastric pain #500 mL 05/20/23 [Rx Last Taken Unknown] Allergy/AdvReac Type Severity Reaction Status Date / Time bee venom protein (honey bee) Allergy Severe edema Verified 05/20/23 12:39 Family History Mother Arthritis Diabetes Heart disease Hypertension High cholesterol Sister Asthma Arthritis Diabetes Grandmother Colon cancer Aunt Lupus Daughter Seizures Sister Diabetes Surgical History History of History of cholecystectomy History of discectomy History of fusion of cervical spine History of hysterectomy history right shoulder surgery Social History household members: spouse Smoking Status: Former smoker how long ago did patient quit smokin year ago alcohol intake: never substance use type: does not use caffeine: Yes Type: carbonated beverages Number of servings: 1 ROS ROS ED Constitutional Constitutional ED: Denies chills, fever(s) or sweats Eyes Eyes: Denies blurry vision or change in vision ENT ENT ED: Denies ear pain or sore throat Cardiovascular Cardiovascular: Reports chest pain; Denies palpitations or racing heartbeat Respiratory/Chest Respiratory/Chest: Reports cough; Denies dyspnea or sputum Gastrointestinal Gastrointestinal: Reports other Details: Dyspepsia, GERD ; Denies abdominal pain, constipation, diarrhea, nausea or vomiting Genitourinary Genitourinary ED: Reports dysuria; Denies hematuria or urinary frequency Musculoskeletal Musculoskeletal: Denies arthralgias, myalgias or neck pain Integumentary Denies abscess, Abrasions or rash Neurologic Neurologic: Denies headache(s), paresthesias or weakness Psychiatric Psychiatric: Denies anxiety, depression, suicidal ideation or suicidal thoughts Endocrine Endocrinology: Denies polydipsia or polyuria EXAM Physical Exam Const Vital Signs: 05/20/23 12:40 05/20/23 13:08 05/20/23 13:33 Temperature 97.8 F 97.8 F Temperature Source Temporal Oral Pulse Rate 63 65 Respiratory Rate 16 15 Respiratory Effort Respiratory Pattern Blood Pressure 138/57 H 140/59 H Blood Pressure Mean 84 86 Pulse Ox 95 93 95 Oxygen Delivery Method Room Air Room Air 05/20/23 13:35 05/20/23 14:40 05/20/23 16:00 Temperature Temperature Source Pulse Rate 72 66 Respiratory Rate 16 17 Respiratory Effort Normal Non-Labored Respiratory Pattern Normal Blood Pressure 140/59 H 145/56 H Blood Pressure Mean 86 85 Pulse Ox 99 93 Oxygen Delivery Method Room Air Room Air 05/20/23 16:38 Temperature 97.9 F Temperature Source Pulse Rate 66 Respiratory Rate 17 Respiratory Effort Respiratory Pattern Blood Pressure 145/56 H Blood Pressure Mean 85 Pulse Ox 93 Oxygen Delivery Method Positive well nourished General Appearance ED: NAD; Negative for pallor HEENT Reports moist mucous membranes HEENT Narrative: Oropharynx pink and moist. No posterior oropharyngeal erythema or edema. No exudates. Eyes PERRL and EOMs intact bilaterally General Eye ED: Negative for pale conjunctiva or scleral icterus Neck no lymphadenopathy and supple Chest Wall inspection of chest normal Resp normal respiratory effort and clear to auscultation bilaterally Auscultation: Negative for rales, rhonchi or wheezes Cardio regular rate and regular rhythm GI normal to inspection, nondistended, normoactive bowel sounds, non-tender and non-distended Palpation: soft Extremity normal to inspection General Extremety ED: Negative for edema or tenderness General Extremity: Negative for edema Neuro oriented x3 and CN's II-XII intact bilaterally Sensorium / Orientation: alert Motor Exam: strength 5/5 throughout Psych mental status grossly normal Skin no rashes or lesions noted General Skin Exam: Negative for jaundice or pallor MDM MDM MDM Narrative Medical decision making narrative: Patient presenting with chest pain which is retrosternal and she believes associated with GERD. Differential includes ACS, CHF, pneumonia, costochondritis, acid reflux. Patient also complaining of dysuria and concern for UTI. CBC was obtained to assess white blood cell count, hemoglobin, platelets. BMP to assess renal function, electrolytes, glucose. High-sensitivity troponin EKG to assess for ischemia/dysrhythmia. BNP to assess for CHF. Urinalysis to assess for UTI. CBC and BMP unremarkable. High-sensitivity troponin is 5. EKG on my interpretation shows a sinus rhythm with a ventricular rate of 71 bpm without sign of ischemic change or ectopy. Chest x-ray on my interpretation shows no acute process. Radiologist interprets this and agrees. Urinalysis today is consistent with infection with 500 leukocyte esterase, positive nitrites, 5-10 WBCs with 1+ bacteria no contamination. Since patient is symptomatic she was given a gram of Rocephin here. Urine culture was sent. Keflex will be provided for antibiotics at home. Patient also concerned that her symptoms were due to GERD so she was given a GI cocktail which did help. She requested referral for follow-up and was given Dr. Kasper. Patient will be discharged home in stable condition. Cardiac workup is negative. Recommend follow-up with her PCP for both. Return precautions were discussed. Impression: 1. Chest pain 2. UTI 3. GERD Lab Data Attestation: I reviewed the patient's lab results. Labs: Laboratory Results - last 24 hr 05/20/23 05/20/23 12:58 13:55 WBC 5.6 RBC 3.92 L Hgb 11.5 L Hct 36.4 L MCV 92.9 MCH 29.3 MCHC 31.6 L RDW Std Deviation 51.8 H RDW Coeff of Autumn 15.1 H Plt Count 163 MPV 9.3 Immature Gran % (Auto) 0.400 Neut % (Auto) 62.3 Lymph % (Auto) 26.6 Butts % (Auto) 7.0 Eos % (Auto) 3.0 Baso % (Auto) 0.7 Absolute Neuts (auto) 3.5 Absolute Lymphs (auto) 1.49 Nucleated RBC % 0 Sodium 129 L Potassium 5.3 H Chloride 97 L Carbon Dioxide 22.0 Anion Gap 10 BUN 28 H Creatinine 1.85 H Est GFR (MDRD) Af Amer 35 L Est GFR (MDRD) Non-Af 29 L BUN/Creatinine Ratio 15.1 Glucose 131 H Calcium 9.9 Troponin I High Sens 5 B-Natriuretic Peptide 110.4 H Urine Color Yellow Urine Clarity Clear Urine pH 7.0 Ur Specific [place] 1.010 Urine Protein Negative Urine Glucose (UA) Normal Urine Ketones Negative Urine Occult Blood Negative Urine Nitrite Positive H Urine Bilirubin 1 H Urine Urobilinogen 1 H Ur Leukocyte Esterase 500 H Urine RBC 0 SEEN Urine WBC 5-10 SEEN Ur Squamous Epith Cells 0 SEEN Urine Bacteria 1+ Urine Mucus 0 SEEN Radiography Diagnostic Testing: Clinical Impression(s) from Imaging Studies Chest X-Ray 05/20/23 12:50 IMPRESSION: No active disease. Electronically Signed: Pablo Dumont MD at 13:53 EDT , Discharge Plan Triage Chief Complaint: Chest Pain ED Provider: Pedro Pablo Barrientos Dx/Rx/DC Orders Instructions: ED Chest Pain, Noncardiac, ED UTIs Women Prescriptions: New cephalexin 500 mg capsule 500 mg PO Q12 Qty: 14 0RF sucralfate [Carafate] 100 mg/mL suspension 10 ml PO BID PRN (Reason: epigastric pain) Qty: 500 0RF No Action oxycodone-acetaminophen [Percocet] 5-325 mg tablet 1 tab PO TID PRN (Reason: Pain Or Fever) pregabalin 100 mg capsule 100 mg PO TID Patient Comments: TAKE 1 CAPSULE BY MOUTH TWICE DAILY aspirin [Adult Low Dose Aspirin] 81 mg tablet,delayed release (DR/EC) 81 mg PO DAILY famotidine 20 mg tablet 20 mg PO BID Xtampza ER 13.5 mg cap,sprinkl,ER12hr(DONT CRUSH) 13.5 mg PO BID Rx Instructions: must administer with a meal/food ascorbate calcium (vitamin C) 500 mg tablet 500 mg PO DAILY cholecalciferol (vitamin D3) 50 mcg (2,000 unit) capsule 50 mcg PO DAILY zinc sulfate 25 mg zinc (110 mg) tablet 25 mg PO DAILY meloxicam 7.5 mg tablet 7.5 mg PO BID Patient Comments: TAKE 1 TABLET BY MOUTH TWICE A DAY Prolia 60 mg/mL syringe 60 mg subcut [id number] Qty: 1 1RF insulin lispro [Humalog KwikPen Insulin] 100 unit/mL insulin pen 8 unit subcut TID MDD 32 units Qty: 15 6RF Rx Instructions: plus sliding scale losartan 50 mg tablet 50 mg PO BID magnesium 250 mg tablet 250 mg PO DAILY pravastatin 80 MG tablet 80 mg PO QHS multivitamin with folic acid 1 TABLET tablet 1 tab PO DAILY dexlansoprazole 60 mg capsule,biphase delayed releas 60 mg PO QHS sennosides 15 mg Tablet 15 mg PO BID PRN (Reason: Constipation) vitamin B complex Capsule 1 cap PO DAILY metformin 1,000 mg tablet 1,000 mg PO BID Qty: 180 1RF (DME) insulin syringe-needle U-100 [BD Insulin Syringe Ultra-Fine] 0.5 mL 31 gauge x 5/16 syringe See Rx Instructions .Route Qty: 100 0RF Rx Instructions: daily insulin glargine [Lantus Solostar U-100 Insulin] 100 unit/mL (3 mL) insulin pen 45 unit subcut QAM Qty: 15 6RF [facility] Referrals: Casey Kasper DO [Med Staff - Active Staff] - 3-5 Days [facility] [Primary Care Provider] - Disposition Disposition: Home, Self Care Discharge Date/Time: 05/20/23 16:42
[2023-05-20] MEDS: Ceftriaxone 1 GM/50 ML BAG IV (15:23)
[2023-05-20 16:00] VITALS: BP 145/56; PULSE 66; RESP 17; O2SAT 93
[2023-05-20 16:38] VITALS: BP 145/56; PULSE 66; RESP 17; TEMP 36.6; O2SAT 93
== END 2023-05-20 16:42 | disposition home or self-care (01) ==
PROVIDERS: Emergency Provider Student in an Organized Health Care Education/Training Program; Visit Provider Student in an Organized Health Care Education/Training Program
DX: R07.9 Chest pain, unspecified (principal); J44.9 Chronic obstructive pulmonary disease, unspecified; E11.22 Type 2 diabetes mellitus with diabetic chronic kidney disease; N18.30 Chronic kidney disease, stage 3 unspecified; N39.0 Urinary tract infection, site not specified; K21.9 Gastro-esophageal reflux disease without esophagitis; Z87.891 Personal history of nicotine dependence
CPT/HCPCS: 71045; 80048; 81001; 83880; 84484; 85025; 93005; 96365; 99285; A4216

== ENCOUNTER → 2023-06-29 | Outpatient (CLI) | payer MEDICARE, SELFPAY ==
[2023-06-29 12:46] LABS: Basophil# 0.06 X10^3/uL; Eosinophil# 0.24 X10^3/uL; Eosinophils% 3.9 % (0-5); Hematocrit 39.9 % (37-47); Hemoglobin 13.2 g/dL (12.0-15.0); Mean Corp Hgb Conc 33.1 g/dL (32-36); Mean Corpuscular Volume 90.7 fL (81-99); Mean Platelet Vol. 9.7 fl (6.2-12.0); Monocyte% 9.7 % (0-10); NRBC Flagged by Analyzer 0 % (0-5); Neutrophil # 2.99 X10^3/uL (2.7-7.7); Neutrophil % 48.1 % (47-70); Platelet Count 170 K/mm3 (150-450); RBC Distribution Width CV 14.6 % (11.6-14.6); RBC Distribution Width SD 48.6 fl (35.1-43.9); White Blood Count 6.2 K/mm3 (4.4-11.0)
[2023-06-29 13:24] LABS: Microalbumin,Random Urine < 5.0 mg/L (NO RANGE EST.)
[2023-06-29 13:30] LABS: ALB/GLOB Ratio 1.1 RATIO (0.9-2.4); AST(SGOT) 46 U/L (15-37); Alanine Aminotransfer ALT/SGPT 66 U/L (13-56); Alkaline Phosphatase 28 U/L (45-117); Anion Gap 8 (5-15); BUN 17 mg/dL (7-18); BUN/Creat Ratio 12.8 RATIO (10-20); Calcium,Total 10.9 mg/dL (8.5-10.1); Chloride 91 mmol/L (98-107); Creatinine, Serum 1.33 mg/dL (0.55-1.02); EST Glomerular Filtration Rate 43 mL/min (>60); Est Glom Filt Rate - Afr Amer 52 mL/min (>60); Globulin 3.8 g/dL (2.2-4.2); Glucose 109 mg/dL (74-106); Potassium 5.2 mmol/L (3.5-5.1); Protein, Total 7.8 g/dL (6.4-8.2); Sodium Level 122 mmol/L (136-145); Thyroid Stim Hormone (TSH) 2.34 uIU/mL (0.358-3.74)
== END | disposition home or self-care (01) ==
PROVIDERS: PCP Nurse Practitioner Family; Referring Provider Nurse Practitioner Family; Visit Provider Nurse Practitioner Family
DX: E11.65 Type 2 diabetes mellitus with hyperglycemia (principal); I10 Essential (primary) hypertension
CPT/HCPCS: 36415; 80053; 82043; 82570; 84443; 85025

== ENCOUNTER 2023-07-13 06:53 | Day surgery (SDC) | payer MEDICARE, SELFPAY ==
[2023-07-13] VITALS (7 sets, daily range): BP systolic 73–143; BP diastolic 40–78; PULSE 66–71; RESP 16–18; TEMP 36.1–36.6; O2SAT 91–98; BMI 31.3
[2023-07-13] MEDS: Lactated Ringers 1,000 ML 15 ML IV (07:23)
--- NOTE | 2023-07-13 07:48 | HP.PCM_ITS ---
HPI - General General Date of Service: 07/13/23 HPI Narrative JACOBY COOK, is a 62 F who presents for an EGD. Patient states she was doing well on the omeprazole and Carafate until this morning she complains of left upper quadrant and epigastric and some burning up her esophagus. Patient states she may have had a heavier meal last night. office visit 06/06/23 [facility] HPI: 62-year-old female presents due to reflux and EGD. Patient has been on medication for years. Patient has previously been on Dexilant for about 10 years off for about the last month currently on omeprazole and Carafate 4 times daily started mid last month. Patient states she previously was also on namebrand Nexium prior to the Dexilant. Patient states her symptoms are burning up the esophagus which have improved since starting on the Carafate. Patient a colonoscopy in 2019. COUNT INCLUDES THE [facility] Medical History (Updated 07/11/23 @ 11:54 by Irma Becker) Wears dentures Wears glasses Post-menopausal History of steroid therapy Insulin dependent diabetes mellitus Diabetes Gout Back pain Gastric reflux Former smoker Shortness of breath on exertion Leg cramps History of echocardiogram History of stress test Cardiology follow-up encounter Vitamin D deficiency Type 2 diabetes with stage 3 chronic kidney disease GFR 30-59 Osteoporosis Hypercalcemia Hyperparathyroidism Acute kidney injury Pneumonia Leukocytosis Occasional tremors Abnormal EKG Left anterior fascicular block (LAFB) Essential hypertension Depression with anxiety Fracture of right wrist Arthritis History of back problems Obesity (BMI 30.0-34.9) REINALDO (acute kidney injury) Nephrolithiasis COPD (chronic obstructive pulmonary disease) GERD (gastroesophageal reflux disease) Chronic back pain Atypical chest pain Diabetes mellitus type 2 in obese Home Medications ?Medication ?Instructions ?Recorded ?Last Taken ?Type multivitamin with folic acid 400 1 tab PO DAILY supplement 06/13/13 07/12/23 History mcg tablet pravastatin 80 mg tablet 80 mg PO QHS cholesterol 06/13/13 07/12/23 History aspirin 81 mg tablet,delayed 81 mg PO DAILY heart health 05/06/20 07/11/23 History release (Adult Low Dose Aspirin) oxycodone-acetaminophen 5 mg-325 1 tab PO TID PRN Pain Or Fever 05/06/20 07/13/23 06:15 History mg tablet (Percocet) pregabalin 100 mg capsule 100 mg PO TID neuropathy 05/06/20 07/13/23 06:15 History sennosides 15 mg tablet 15 mg PO BID PRN Constipation 01/31/21 07/12/23 History vitamin B complex 1 cap PO DAILY supplement 01/31/21 07/12/23 History ascorbate calcium (vitamin C) 500 500 mg PO DAILY 07/26/21 07/12/23 History mg tablet cholecalciferol (vitamin D3) 50 50 mcg PO DAILY 07/26/21 07/12/23 History mcg (2,000 unit) capsule oxycodone myristate 13.5 mg 13.5 mg PO BID 07/26/21 07/13/23 06:15 History capsule sprinkle extend release 12hr(DON'T CRUSH) (Xtampza ER) zinc sulfate 25 mg zinc (110 mg) 50 mg PO DAILY 07/26/21 07/12/23 History tablet Prolia 60 mg/mL subcutaneous 60 mg subcut [id number] #1 mL 12/04/22 07/12/23 Rx syringe (denosumab) insulin syringe-needle U-100 0.5 #100 ea 04/13/23 Unknown Rx mL 31 gauge x 5/16 (BD Insulin Syringe Ultra-Fine) losartan 50 mg tablet 50 mg PO BID 05/07/23 07/13/23 06:15 History magnesium 250 mg tablet 400 mg PO BID Leg cramps 05/07/23 07/12/23 History meloxicam 7.5 mg tablet 7.5 mg PO BID 05/07/23 07/11/23 History cetirizine 10 mg capsule (All Day 10 mg PO DAILY PRN allergy symptoms 07/11/23 07/12/23 History Allergy (cetirizine)) cinnamon bark 500 mg capsule 1,000 mg PO DAILY 07/11/23 07/12/23 History (Cinnamon) docusate sodium 100 mg capsule 100 mg PO DAILY 07/11/23 07/12/23 History (Col-Rite) insulin glargine 100 unit/mL (3 35 unit subcut QAM 07/11/23 07/12/23 19:15 History mL) subcutaneous pen (Lantus 17 unit Solostar U-100 Insulin) metformin 500 mg tablet,extended 500 mg PO DAILY 07/11/23 07/12/23 History release 24 hr omeprazole 40 mg capsule,delayed 40 mg PO DAILY 07/11/23 07/12/23 History release oxybutynin chloride 10 mg 10 mg PO DAILY 07/11/23 07/12/23 History tablet,extended release 24 hr semaglutide 1 mg/dose (4 mg/3 mL) 1 mg subcut QWEEK 07/11/23 Unknown History subcutaneous pen injector (Ozempic) Allergy/AdvReac Type Severity Reaction Status Date / Time bee venom protein (honey bee) Allergy Severe edema Verified 07/13/23 07:13 Family History Mother Arthritis Diabetes Heart disease Hypertension High cholesterol Sister Asthma Arthritis Diabetes Grandmother Colon cancer Aunt Lupus Daughter Seizures Sister Diabetes Surgical History (Updated 07/11/23 @ 11:54 by Irma Becker) Hx of colonoscopy History of hysterectomy History of fusion of cervical spine History of discectomy history right shoulder surgery History of cholecystectomy History of Social History household members: spouse Smoking Status: Former smoker how long ago did patient quit smokin year ago alcohol intake: never substance use type: does not use caffeine: Yes Type: carbonated beverages Number of servings: 1 Past Medical/Surgical History Planned Operation Planned Operative Procedure(s): EGD S.O.S: No Previous Hospitalizations/Surgeries HX Hospitalizations: No HX of Surgeries: back 2003, shoulder x2, hysterectomy, appendectomy laser kidney stone 2019 cervical fusion 2019 lumbar fusion 2018 EGD/[facility]OPE 11/2019 Covid 12/27 Any Problems With Anesthesia: No You/Your Family Experience Fever (Hyperthermia) With Anes: No Cholinesterase deficiency: No Cardiovascular Hx Chest Pain within Last 2 months: No Hx of Irregular Heartbeat and/or Afib: No Hx Heart Attack: No Hx Congestive Heart Failure: No Hx Rheumatic Fever: No Hx Hypertension: Yes (CONTROLLED ON MED) Hx Internal Defibrillator: No Hx Pacemaker: No Hx Cardiac Catheterization: No Hx Cardiac Surgery/Stents/Etc.: No Hx Stress Test: Yes (2018) Hx Pain in Legs when Walking/Leg Cramps: Yes (occ leg pain d/t back) Respiratory Chronic Cough: No HX of Shortness of Breath: Yes (sob with 2 flights of stairs) Hoarseness: No Hx Chronic Obstructive Pulmonary Disease (COPD): No Hx Asthma: Yes (mild/prn inhaler) Hx Emphysema: No Hx Sleep Apnea: No CPAP: No BIPAP: No Hx Respiratory Tract Infection/Cold (presently): No Do You Snore Loudly (louder than talking or can be heard): No Do You Often Feel Tired/ Fatigued/ Sleepy Dring Daytime?: No Has Anyone Observed You Stop Breathing During Sleep?: No Result (for STOP score): Negative Hx Smoking: Yes (quit 2019) Smoking Status: Former smoker Gastrointestinal Controlled With Meds: Yes Hx Gastrointestinal Disorders: Yes (IBS) Hx Gastrointestinal Bleed: No Hx Ulcer: No Hx Hiatal Hernia: No Difficulty Chewing/Swallowing: No Special diet followed at home: Yes (ada) Hx Unplanned Weight Loss of 20#: No HX Unplanned Weight Gain of 20#: No Neurological Hx Seizures: No HX Syncope/Blackout Spells/Unconsciousness: No Hx Transient Ischemic Attacks (TIA): No Hx Multiple Sclerosis: No Hx Parkinson's Disease: No Hx Head/Neck Injury: Yes (cervical fusion 2019. limited rom) Hx Headaches: No Hx Back Injury/Pain: Yes (lumbar fusion 2019/chronic pain) Recent Onset of Speech Difficulty: No Restless Legs: No Does patient have nerve stimulator: No Blood Disorder Hx Leukemia: No Bleeding Tendencies: Yes (bruises easily) Hx Deep Vein Thrombosis: No Hx High Cholesterol: Yes (on med) Hx Hepatitis: No Hx Cirrhosis: No Hx Anemia: No Hx Blood Disorders: No Reproduction Is Patient Lactating: No Hx Hysterectomy: Yes Hx Tubal Ligation: No Are You Post Menopause: Yes Genitourinary Hx Renal Disease: No (kidney stones) Hx Dialysis: No Musculoskeletal Hx Arthritis: Yes (all over) Hx Rheumatoid Arthritis: No Hx Gout: No Recent Onset of an Orthopedic Problem: No Endocrine Hx Diabetes: Yes (.) Insulin: Yes (.) Thyroid Disease: No Hx Steroid Therapy: No Psycho/Social Hx Substance Use: No Hx Alcohol Use: No Hx Anxiety: No Hx Depression: Yes (on med) Mental Illness: No Hx Dementia: No Miscellaneous Hx Cancer: No Recent Exposure to Contagious Disease: No Hx of C-Diff: No Any Loose Teeth: No (dentures) Allergies bee venom protein (honey bee) Allergy (Severe, Verified 07/13/23 07:13) edema mouth , eyes Maternal: Family History Mother Arthritis Diabetes Heart disease Hypertension High cholesterol Sister Asthma Arthritis Diabetes Grandmother Colon cancer Aunt Lupus Daughter Seizures Sister Diabetes Diabetes and Hypertension Paternal: Family History Mother Arthritis Diabetes Heart disease Hypertension High cholesterol Sister Asthma Arthritis Diabetes Grandmother Colon cancer Aunt Lupus Daughter Seizures Sister Diabetes Diabetes, Heart Disease and Hypertension Discharge Is Pt Admitted From a Penitentiary, or a [facility]ci: No After D/C, Where Do you Plan to Go: Return Home From the PAT History Number of Risk Factors: 4 Vital Signs Vital Signs Vital Signs: 07/13/23 07:17 07/13/23 07:19 Temperature 97.9 F Temperature Source Temporal Pulse Rate 69 Respiratory Rate 18 Respiratory Pattern Normal Blood Pressure 143/67 H Blood Pressure Mean 92 Blood Pressure Source Monitor Blood Pressure Position Semi-Fowlers Blood Pressure Location Right Arm Pulse Ox 98 Oxygen Delivery Method Room Air Weight Weight: 160 lb 6.4 oz Body Mass Index (BMI) 31.3 Physical Exam Const alert, oriented x3 and no apparent distress HEENT normocephalic and head/scalp atraumatic Resp normal respiratory effort Cardio regular rate GI soft to palpation; Negative for non-distended Palpation: tender epigastric, LUQ and other (Mild no peritoneal signs); Negative for guarding Extremity no clubbing, cyanosis or edema Skin no rashes or lesions noted Neuro CN's II-XII intact bilaterally Psych mental status grossly normal Assessment & Plan Assessment/Plan (1) GERD (gastroesophageal reflux disease): QUALIFIERS: Esophagitis presence: esophagitis presence not specified Qualified Code(s): K21.9 - Gastro-esophageal reflux disease without esophagitis Surgery Risks - Colonoscopy I discussed with the patient the risks of the procedure: Yes Risks Include but are not Limited To: Plan to do an EGD Risks include but are not limited to: Bleeding, perforation requiring further surgery
[2023-07-13 08:15] LABS: Bedside Glucose 117 mg/dL (74-106)
--- NOTE | 2023-07-13 08:23 | OP.EGD_ITS ---
Patient Name: Estela Kenney Procedure Date: 07/13/2023 7:51 AM Date of : 1960 Age: 62 Procedure: Upper GI endoscopy Indications: Heartburn Providers: Joyce Barboza MD Medicines: Monitored Anesthesia Care Patient Profile: This is a 62 year old female. Complications: No immediate complications. Procedure: Pre-Anesthesia Assessment: - Prior to the procedure, a History and Physical was performed, and patient medications and allergies were reviewed. The patient's tolerance of previous anesthesia was also reviewed. The risks and benefits of the procedure and the sedation options and risks were discussed with the patient. All questions were answered, and informed consent was obtained. Prior Anticoagulants: The patient has taken no anticoagulant or antiplatelet agents. ASA Grade Assessment: Per anesthesia. After reviewing the risks and benefits, the patient was deemed in satisfactory condition to undergo the procedure. After obtaining informed consent, the endoscope was passed under direct vision. Throughout the procedure, the patient's blood pressure, pulse, and oxygen saturations were monitored continuously. The Endoscope was introduced through the mouth, and advanced to the gastric cardia. The upper GI endoscopy was accomplished without difficulty. The patient tolerated the procedure well. Scope In: 8:10:43 AM Scope Out: 8:11:28 AM Total Procedure Duration Time 0 hours 0 minutes 45 seconds Findings: Food was found in the middle third of the esophagus and in the lower third of the esophagus. A medium amount of food (residue) was found in the gastric body. Procedure was aborted due to risk of aspiration with the solid and liquid food in the stomach and some in the esophagus. Impression: - Food in the middle third of the esophagus and in the lower third of the esophagus. - A medium amount of food (residue) in the stomach. - No specimens collected. Recommendation: - Discharge patient to home. - Resume previous diet. - Continue present medications. - Repeat upper endoscopy at appointment to be scheduled Due to food in the stomach. Patient will need to be on clears only today before. Procedure Code(s): --- Professional --- 88182, Esophagoscopy, flexible, transoral; diagnostic, including collection of specimen(s) by brushing or washing, when performed (separate procedure) Diagnosis Code(s): --- Professional --- T18.128A, Food in esophagus causing other injury, initial encounter R12, Heartburn CPT copyright 2021 [employer]. All rights reserved. The codes documented in this report are preliminary and upon help desk internship review may be revised to meet current compliance requirements. MD Joyce Castillo MD 07/13/2023 8:22:29 AM This report has been signed electronically. Number of Addenda: 0 Note Initiated On: 07/13/2023 7:51 AM
--- NOTE | 2023-07-13 08:24 | OP.CCLET_ITS ---
07/13/2023 [facility] [place], [employer] Re : Upper GI endoscopy procedure for Estela Jauregui This procedure was performed on Thursday, July 13, 2023. My impressions and recommendations are as follows: Impressions : - Food in the middle third of the esophagus and in the lower third of the esophagus. - A medium amount of food (residue) in the stomach. - No specimens collected. Recommendations : - Discharge patient to home. - Resume previous diet. - Continue present medications. - Repeat upper endoscopy at appointment to be scheduled Due to food in the stomach. Patient will need to be on clears only today before. My findings are described in the full procedure note, which is enclosed. If I can be of further assistance, please feel free to contact me at Doctor phone number(s): , Work: . Sincerely, MD Joyce Castillo MD 07/13/2023 8:22:29 AM This report has been signed electronically.
[2023-07-13] MEDS: Pantoprazole Sodium 40 MG in 0.9% Normal Saline (100mL MB+) 100 ML 330 MG IV (08:25)
== END 2023-07-13 09:03 | disposition home or self-care (01) ==
LOC: EN 06:53 → AC 06:54
PROVIDERS: PCP Nurse Practitioner Family; Referring Provider Surgery; Visit Provider Surgery
PROC: 0DJ08ZZ Inspection of Upper Intestinal Tract, Via Natural or Artificial Opening Endoscopic (ICD-10-PCS; CPT 43235; principal; 2023-07-13 07:55)
DX: K21.9 Gastro-esophageal reflux disease without esophagitis (principal); J44.9 Chronic obstructive pulmonary disease, unspecified; Z79.4 Long term (current) use of insulin; E11.22 Type 2 diabetes mellitus with diabetic chronic kidney disease; N18.30 Chronic kidney disease, stage 3 unspecified; Z79.82 Long term (current) use of aspirin; Z87.891 Personal history of nicotine dependence; I12.9 Hypertensive chronic kidney disease with stage 1 through stage 4 chronic kidney disease, or unspecified chronic kidney disease; Z79.899 Other long term (current) drug therapy; Z79.84 Long term (current) use of oral hypoglycemic drugs; E78.00 Pure hypercholesterolemia, unspecified; T18.128A Food in esophagus causing other injury, initial encounter; Z53.09 Procedure and treatment not carried out because of other contraindication; X58.XXXA Exposure to other specified factors, initial encounter
CPT/HCPCS: 43235; 82962; J7120; J2405

== ENCOUNTER 2023-09-04 06:07 | Day surgery (SDC) | payer MEDICARE, SELFPAY ==
[2023-09-04] VITALS (8 sets, daily range): BP systolic 82–134; BP diastolic 39–71; PULSE 64–73; RESP 14–18; TEMP 36.3–36.9; O2SAT 92–96; BMI 30.1
[2023-09-04] MEDS: Lactated Ringers 1,000 ML 15 ML IV (06:48)
[2023-09-04] MEDS: Ipratropium/Albuterol Sulfate 3 ML AMPUL.NEB INHALATION (07:00)
--- NOTE | 2023-09-04 07:08 | HP.PCM_ITS ---
HPI - General General Date of Service: 09/04/23 HPI Laine COOK, is a 62 F who presents for an EGD as her previous EGD on 07/13/2023 was aborted due to retained food likely due to patient's diabetic medication. Patient did not complete the Carafate and currently on omeprazole states her left upper quadrant pain is much better. Currently denies any abdominal pain on exam. 07/13/23 HPI Laine COOK, is a 62 F who presents for an EGD. Patient states she was doing well on the omeprazole and Carafate until this morning she complains of left upper quadrant and epigastric and some burning up her esophagus. Patient states she may have had a heavier meal last night. office visit 06/06/23 HPI HPI: 62-year-old female presents due to reflux and EGD. Patient has been on medication for years. Patient has previously been on Dexilant for about 10 years off for about the last month currently on omeprazole and Carafate 4 times daily started mid last month. Patient states she previously was also on namebrand Nexium prior to the Dexilant. Patient states her symptoms are burning up the esophagus which have improved since starting on the Carafate. Patient a colonoscopy in 2019. 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 GFR 30-59 Osteoporosis Hypercalcemia Hyperparathyroidism Pneumonia Leukocytosis Occasional tremors Abnormal EKG Left anterior fascicular block (LAFB) Essential hypertension Depression with anxiety Fracture of right wrist Arthritis History of back problems Obesity (BMI 30.0-34.9) REINALDO (acute kidney injury) Nephrolithiasis COPD (chronic obstructive pulmonary disease) GERD (gastroesophageal reflux disease) Atypical chest pain Diabetes mellitus type 2 in obese Home Medications ?Medication ?Instructions ?Recorded ?Last Taken ?Type multivitamin with folic acid 400 1 tab PO DAILY supplement 06/13/13 07/12/23 History mcg tablet pravastatin 80 mg tablet 80 mg PO QHS cholesterol 06/13/13 09/03/23 History aspirin 81 mg tablet,delayed 81 mg PO DAILY heart health 05/06/20 08/31/23 History release (Adult Low Dose Aspirin) oxycodone-acetaminophen 5 mg-325 1 tab PO TID PRN Pain Or Fever 05/06/20 07/13/23 06:15 History mg tablet (Percocet) pregabalin 100 mg capsule 100 mg PO TID neuropathy 05/06/20 09/03/23 History sennosides 15 mg tablet 15 mg PO BID PRN Constipation 01/31/21 07/12/23 History vitamin B complex 1 cap PO DAILY supplement 01/31/21 07/12/23 History ascorbate calcium (vitamin C) 500 500 mg PO DAILY 07/26/21 07/12/23 History mg tablet cholecalciferol (vitamin D3) 50 50 mcg PO DAILY 07/26/21 07/12/23 History mcg (2,000 unit) capsule oxycodone myristate 13.5 mg 13.5 mg PO BID 07/26/21 07/13/23 06:15 History capsule sprinkle extend release 12hr(DON'T CRUSH) (Xtampza ER) zinc sulfate 25 mg zinc (110 mg) 50 mg PO DAILY 07/26/21 07/12/23 History tablet insulin syringe-needle U-100 0.5 #100 ea 04/13/23 Unknown Rx mL 31 gauge x 5/16 (BD Insulin Syringe Ultra-Fine) losartan 50 mg tablet 50 mg PO BID 05/07/23 09/04/23 History magnesium 250 mg tablet 400 mg PO BID Leg cramps 05/07/23 07/12/23 History meloxicam 7.5 mg tablet 7.5 mg PO BID 05/07/23 07/11/23 History cetirizine 10 mg capsule (All Day 10 mg PO DAILY PRN allergy symptoms 07/11/23 07/12/23 History Allergy (cetirizine)) cinnamon bark 500 mg capsule 1,000 mg PO DAILY 07/11/23 07/12/23 History (Cinnamon) docusate sodium 100 mg capsule 100 mg PO DAILY 07/11/23 07/12/23 History (Col-Rite) insulin glargine 100 unit/mL (3 37 unit subcut QHS 07/11/23 09/03/23 History mL) subcutaneous pen (Lantus Solostar U-100 Insulin) metformin 500 mg tablet,extended 500 mg PO DAILY 07/11/23 07/12/23 History release 24 hr omeprazole 40 mg capsule,delayed 40 mg PO DAILY 07/11/23 09/04/23 History release oxybutynin chloride 10 mg 10 mg PO DAILY 07/11/23 09/04/23 History tablet,extended release 24 hr semaglutide 1 mg/dose (4 mg/3 mL) 1 mg subcut WE 07/11/23 08/29/23 History subcutaneous pen injector (Ozempic) Prolia 60 mg/mL subcutaneous 60 mg subcut [id number] #1 mL 07/31/23 Unknown Rx syringe (denosumab) Allergy/AdvReac Type Severity Reaction Status Date / Time bee venom protein (honey bee) Allergy Severe edema Verified 09/04/23 06:37 Family History Mother Arthritis Diabetes Heart disease Hypertension High cholesterol Sister Asthma Arthritis Diabetes Grandmother Colon cancer Aunt Lupus Daughter Seizures Sister Diabetes Surgical History (Updated 07/11/23 @ 11:54 by Irma Becker) Hx of colonoscopy History of hysterectomy History of fusion of cervical spine History of discectomy history right shoulder surgery History of cholecystectomy History of Social History household members: spouse Smoking Status: Former smoker how long ago did patient quit smokin year ago alcohol intake: never substance use type: does not use caffeine: Yes Type: carbonated beverages Number of servings: 1 Past Medical/Surgical History Planned Operation Planned Operative Procedure(s): EGD S.O.S: No Previous Hospitalizations/Surgeries HX Hospitalizations: No HX of Surgeries: back 2003, shoulder x2, hysterectomy, appendectomy laser kidney stone 2019 cervical fusion 2019 lumbar fusion 2018 EGD/CSCOPE 11/2019 Covid 12/27 Any Problems With Anesthesia: No You/Your Family Experience Fever (Hyperthermia) With Anes: No Cholinesterase deficiency: No Cardiovascular Hx Chest Pain within Last 2 months: No Hx of Irregular Heartbeat and/or Afib: No Hx Heart Attack: No Hx Congestive Heart Failure: No Hx Rheumatic Fever: No Hx Hypertension: Yes (CONTROLLED ON MED) Hx Internal Defibrillator: No Hx Pacemaker: No Hx Cardiac Catheterization: No Hx Cardiac Surgery/Stents/Etc.: No Hx Stress Test: Yes (2018) Hx Pain in Legs when Walking/Leg Cramps: Yes (occ leg pain d/t back) Respiratory Chronic Cough: No HX of Shortness of Breath: Yes (sob with 2 flights of stairs) Hoarseness: No Hx Chronic Obstructive Pulmonary Disease (COPD): No Hx Asthma: Yes (mild/prn inhaler) Hx Emphysema: No Hx Sleep Apnea: No CPAP: No BIPAP: No Hx Respiratory Tract Infection/Cold (presently): No Do You Snore Loudly (louder than talking or can be heard): No Do You Often Feel Tired/ Fatigued/ Sleepy Dring Daytime?: No Has Anyone Observed You Stop Breathing During Sleep?: No Result (for STOP score): Negative Hx Smoking: Yes (quit 2019) Smoking Status: Former smoker Gastrointestinal Controlled With Meds: Yes Hx Gastrointestinal Disorders: Yes (IBS) Hx Gastrointestinal Bleed: No Hx Ulcer: No Hx Hiatal Hernia: No Difficulty Chewing/Swallowing: No Special diet followed at home: Yes (ada) Hx Unplanned Weight Loss of 20#: No HX Unplanned Weight Gain of 20#: No Neurological Hx Seizures: No HX Syncope/Blackout Spells/Unconsciousness: No Hx Transient Ischemic Attacks (TIA): No Hx Multiple Sclerosis: No Hx Parkinson's Disease: No Hx Head/Neck Injury: Yes (cervical fusion 2019. limited rom) Hx Headaches: No Hx Back Injury/Pain: Yes (lumbar fusion 2019/chronic pain) Recent Onset of Speech Difficulty: No Restless Legs: No Does patient have nerve stimulator: No Blood Disorder Hx Leukemia: No Bleeding Tendencies: Yes (bruises easily) Hx Deep Vein Thrombosis: No Hx High Cholesterol: Yes (on med) Hx Hepatitis: No Hx Cirrhosis: No Hx Anemia: No Hx Blood Disorders: No Reproduction : No Is Patient Lactating: No Hx Hysterectomy: Yes Hx Tubal Ligation: No Are You Post Menopause: Yes Genitourinary Hx Renal Disease: No (kidney stones) Hx Dialysis: No Musculoskeletal Hx Arthritis: Yes (all over) Hx Rheumatoid Arthritis: No Hx Gout: No Recent Onset of an Orthopedic Problem: No Endocrine Hx Diabetes: Yes (.) Insulin: Yes (.) Thyroid Disease: No Hx Steroid Therapy: No Psycho/Social Hx Substance Use: No Hx Alcohol Use: No Hx Anxiety: No Hx Depression: Yes (on med) Mental Illness: No Hx Dementia: No Miscellaneous Hx Cancer: No Recent Exposure to Contagious Disease: No Hx of C-Diff: No Any Loose Teeth: No (dentures) Allergies bee venom protein (honey bee) Allergy (Severe, Verified 09/04/23 06:37) edema mouth , eyes Maternal: Family History Mother Arthritis Diabetes Heart disease Hypertension High cholesterol Sister Asthma Arthritis Diabetes Grandmother Colon cancer Aunt Lupus Daughter Seizures Sister Diabetes Diabetes and Hypertension Paternal: Family History Mother Arthritis Diabetes Heart disease Hypertension High cholesterol Sister Asthma Arthritis Diabetes Grandmother Colon cancer Aunt Lupus Daughter Seizures Sister Diabetes Diabetes, Heart Disease and Hypertension Discharge Is Pt Admitted From a [facility], or a [facility]: No After D/C, Where Do you Plan to Go: Return Home From the PAT History Number of Risk Factors: 4 Vital Signs Vital Signs Vital Signs: 09/04/23 06:42 09/04/23 06:42 Temperature 97.4 F L Temperature Source Temporal Pulse Rate 73 Respiratory Rate 16 Respiratory Pattern Normal Blood Pressure 134/71 H Blood Pressure Mean 92 Blood Pressure Source Monitor Blood Pressure Position Semi-Fowlers Blood Pressure Location Right Arm Pulse Ox 95 Oxygen Delivery Method Room Air Weight Weight: 154 lb 5.177 oz Body Mass Index (BMI) 30.1 Physical Exam Const alert, oriented x3 and no apparent distress HEENT normocephalic and head/scalp atraumatic Resp normal respiratory effort Cardio regular rate GI soft to palpation and non-tender; Negative for non-distended Palpation: Negative for guarding Extremity no clubbing, cyanosis or edema Skin no rashes or lesions noted Neuro CN's II-XII intact bilaterally Psych mental status grossly normal Assessment & Plan Assessment/Plan (1) GERD (gastroesophageal reflux disease): QUALIFIERS: Esophagitis presence: esophagitis presence not specified Qualified Code(s): K21.9 - Gastro-esophageal reflux disease without esophagitis Surgery Risks - Colonoscopy I discussed with the patient the risks of the procedure: Yes Risks Include but are not Limited To: Plan for an EGD Risks include but are not limited to: Bleeding, perforation requiring further surgery
[2023-09-04 07:14] LABS: Bedside Glucose 102 mg/dL (74-106)
--- NOTE | 2023-09-04 07:17 | PRE.ANES_ITS ---
ASA Classification* ASA Classification ASA Classification: 3 Assessment & Plan Anesthesia* Anesthesia Assessment Anesthesia Assessment: Discussed sedation and/or anesthesia options, risks, benefits, and alternatives with patient/parents/legal guardian/POA. Questions invited. The patient/parents/legal guardian/POA seems to understand and agrees to proceed with anesthesia plan. Reviewed the physical assessment, medical history, allergy history and patient home medications list prior to surgery/procedure/anesthetic and documented any changes. Performed airway and anesthesia risk assessments. Anesthesia Type Anesthesia Type: MAC (see written pre anesthesia record for full assessment) Anesthesia Focused Assessment* Temperature: 97.4 F Pulse Rate: 73 Blood Pressure: 134/71 Respiratory Rate: 16 Pulse Ox: 95 Airway Assessment Mouth opens: >3 cm Mallampati Score: III Focused Labs Anesthesia Preop lab: CBC WBC 6.2 K/mm3 (4.4-11.0) 06/29/23 11:59 RBC 4.40 M/mm3 (4.2-5.4) 06/29/23 11:59 Hgb 13.2 g/dL (12.0-15.0) 06/29/23 11:59 Hct 39.9 % (37-47) 06/29/23 11:59 Plt Count 170 K/mm3 (150-450) 06/29/23 11:59 CHEMISTRY Potassium 5.2 mmol/L (3.5-5.1) H 06/29/23 11:59 Sodium 122 mmol/L (136-145) L 06/29/23 11:59 Magnesium 1.8 mg/dL (1.6-2.6) 06/01/22 08:53 Phosphorus 3.7 mg/dL (2.5-4.9) 10/12/20 13:00 BUN 17 mg/dL (7-18) 06/29/23 11:59 Creatinine 1.33 mg/dL (0.55-1.02) H 06/29/23 11:59 Glucose 109 mg/dL (74-106) H 06/29/23 11:59 POC Glucose 102 mg/dL (74-106) 09/04/23 06:30 TSH 2.34 uIU/mL (0.358-3.74) 06/29/23 11:59 COAG PT 13.4 SECONDS (11.7-14.9) 06/09/17 05:00 Pre-Assessment Diagnosis/Proposed Procedure Planned Operative Procedure(s): EGD Anesthesia History 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 When Was Last Pacemaker Check QUESTION #4 FULL TEXT: You/Your Family Experience fever (hyperthermia) with Anesthesia Last Oral Intake Last Oral intake: Last Oral Intake NPO since 19:00 09/04/23 06:42 Meds taken in AM with sips of Yes 09/04/23 06:42 water? Meds patient instructed to omeprazole, losartan, 09/04/23 06:42 take am of surgery oxybutynin PONV PONV - securities research analyst: PONV - securities research analyst Female Yes 08/30/23 13:40 HX of Motion Sickness Yes 08/30/23 13:40 HX of N/V After Surgery No 08/30/23 13:40 Non-Smoker Yes 08/30/23 13:40 Duration of Surgery greater No 08/30/23 13:40 than 60 minutes Number of Risk Factors 3 08/30/23 13:40 PONV Score Moderate Risk 08/30/23 13:40 Height & Weight Height & Weight: Anesthesia: Height & Weight Height 5 ft 09/04/23 06:42 Weight: 70 kg 09/04/23 06:42 Body Mass Index (BMI) 30.1 09/04/23 06:42 Respiratory Assessment Respiratory Assessment - securities research analyst: Respiratory Tract Infection Hx - securities research analyst Hx Respiratory Tract Infection No 09/04/23 07:10 STOP Sleep Apnea STOP Sleep Apnea - securities research analyst: STOP Sleep Apnea - securities research analyst Hx Hypertension Yes: CONTROLLED ON MED 09/04/23 07:10 Hx Sleep Apnea No 09/04/23 07:10 CPAP No 09/04/23 07:10 BIPAP No 09/04/23 07:10 Do you snore loudly (louder No 09/04/23 07:10 than talking or can be heard Do you often feel tired/ No 09/04/23 07:10 fatigued/ sleepy during daytime? Has anyone observed you stop No 09/04/23 07:10 breathing during sleep? STOP Results Negative 09/04/23 07:10 QUESTION #5 FULL TEXT : Do you snore loudly (louder than talking or can be heard through closed doors)? 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 Specify any problems Hx of Preganancy in last 3 No 08/30/23 13:40 Months Nurse Filling Out Transfusion DSCHRIBER 08/30/23 13:40 & Questions: Date: 08/30/23 08/30/23 13:40 Time: 13:42 08/30/23 13:40 Patient unable to answer at this time (ie. confused, unrespo /Reproduction History /Reproductive History - securities research analyst: /Reproductive Hx- securities research analyst Hx Now No 09/04/23 07:10 Gestational Age (in weeks): EDC: Hx Hx Para Hx Section SAB No 08/30/23 13:40 Active Medications Active Medications: Current Medications Generic Name Dose Route Start Last Admin Trade Name Freq PRN Reason Stop Dose Admin Lactated Ringer's 1,000 mls @ 15 mls/hr 09/04/23 06:30 09/04/23 06:48 IV 15 mls/hr .Q48H CANDACE Administration PFSH Medical History History of renal disease Easy bruising Excessive bleeding On home oxygen therapy Wears dentures Wears glasses Post-menopausal History of steroid therapy Insulin dependent diabetes mellitus Gout Back pain Gastric reflux Former smoker Shortness of breath on exertion Leg cramps History of echocardiogram History of stress test Cardiology follow-up encounter Vitamin D deficiency Type 2 diabetes with stage 3 chronic kidney disease GFR 30-59 Osteoporosis Hypercalcemia Hyperparathyroidism Pneumonia Leukocytosis Occasional tremors Abnormal EKG Left anterior fascicular block (LAFB) Essential hypertension Depression with anxiety Fracture of right wrist Arthritis History of back problems Obesity (BMI 30.0-34.9) REINALDO (acute kidney injury) Nephrolithiasis COPD (chronic obstructive pulmonary disease) GERD (gastroesophageal reflux disease) Atypical chest pain Diabetes mellitus type 2 in obese Home Medications ?Medication ?Instructions ?Recorded ?Last Taken ?Type multivitamin with folic acid 400 1 tab PO DAILY supplement 06/13/13 07/12/23 History mcg tablet pravastatin 80 mg tablet 80 mg PO QHS cholesterol 06/13/13 09/03/23 History aspirin 81 mg tablet,delayed 81 mg PO DAILY heart health 05/06/20 08/31/23 History release (Adult Low Dose Aspirin) oxycodone-acetaminophen 5 mg-325 1 tab PO TID PRN Pain Or Fever 05/06/20 07/13/23 06:15 History mg tablet (Percocet) pregabalin 100 mg capsule 100 mg PO TID neuropathy 05/06/20 09/03/23 History sennosides 15 mg tablet 15 mg PO BID PRN Constipation 01/31/21 07/12/23 History vitamin B complex 1 cap PO DAILY supplement 01/31/21 07/12/23 History ascorbate calcium (vitamin C) 500 500 mg PO DAILY 07/26/21 07/12/23 History mg tablet cholecalciferol (vitamin D3) 50 50 mcg PO DAILY 07/26/21 07/12/23 History mcg (2,000 unit) capsule oxycodone myristate 13.5 mg 13.5 mg PO BID 07/26/21 07/13/23 06:15 History capsule sprinkle extend release 12hr(DON'T CRUSH) (Xtampza ER) zinc sulfate 25 mg zinc (110 mg) 50 mg PO DAILY 07/26/21 07/12/23 History tablet insulin syringe-needle U-100 0.5 #100 ea 04/13/23 Unknown Rx mL 31 gauge x 5/16 (BD Insulin Syringe Ultra-Fine) losartan 50 mg tablet 50 mg PO BID 05/07/23 09/04/23 History magnesium 250 mg tablet 400 mg PO BID Leg cramps 05/07/23 07/12/23 History meloxicam 7.5 mg tablet 7.5 mg PO BID 05/07/23 07/11/23 History cetirizine 10 mg capsule (All Day 10 mg PO DAILY PRN allergy symptoms 07/11/23 07/12/23 History Allergy (cetirizine)) cinnamon bark 500 mg capsule 1,000 mg PO DAILY 07/11/23 07/12/23 History (Cinnamon) docusate sodium 100 mg capsule 100 mg PO DAILY 07/11/23 07/12/23 History (Col-Rite) insulin glargine 100 unit/mL (3 37 unit subcut QHS 07/11/23 09/03/23 History mL) subcutaneous pen (Lantus Solostar U-100 Insulin) metformin 500 mg tablet,extended 500 mg PO DAILY 07/11/23 07/12/23 History release 24 hr omeprazole 40 mg capsule,delayed 40 mg PO DAILY 07/11/23 09/04/23 History release oxybutynin chloride 10 mg 10 mg PO DAILY 07/11/23 09/04/23 History tablet,extended release 24 hr semaglutide 1 mg/dose (4 mg/3 mL) 1 mg subcut WE 07/11/23 08/29/23 History subcutaneous pen injector (Ozempic) Prolia 60 mg/mL subcutaneous 60 mg subcut [id number] #1 mL 07/31/23 Unknown Rx syringe (denosumab) Allergy/AdvReac Type Severity Reaction Status Date / Time bee venom protein (honey bee) Allergy Severe edema Verified 09/04/23 06:37 Family History Mother Arthritis Diabetes Heart disease Hypertension High cholesterol Sister Asthma Arthritis Diabetes Grandmother Colon cancer Aunt Lupus Daughter Seizures Sister Diabetes Surgical History Hx of colonoscopy History of hysterectomy History of fusion of cervical spine History of discectomy history right shoulder surgery History of cholecystectomy History of Social History household members: spouse Smoking Status: Former smoker how long ago did patient quit smokin year ago alcohol intake: never substance use type: does not use caffeine: Yes Type: carbonated beverages Number of servings: 1 Review of Systems (Anesthesia) ROS Narrative System reviewed and no additional complaints, except as documented.
--- NOTE | 2023-09-04 07:30 | IMM_PTH ---
PATIENT: JACOBY COOK LOC: EN U#:[id number] AGE/SX: 62/F ROOM: RE09/04/[address]: Dr. Joyce Barboza MD : 1960 BED: DIS: 09/04/2023 SPEC #: [id number] RECD: 09/04/23 12:53 STATUS: RHONDA REBlake #: [id number] MERLIN: 09/04/23 07:[address]: Joyce Barboza DEPT: IMMUNOHISTOCHEMISTRY RECD BY: Paulo Ceron ENTERED: 09/04/23 12:54 SP TYPE: IMMUNO OTHR DR: Angeles Jauregui, [facility], TITLE CURATOR-C Tissues: Gastric mucous membrane Procedures: H Pylori (initial) KI-67 (add) P53 (add) PHYSICIAN & INSTITUTION [place] [address] SPECIMEN INFORMATION: Tissue Source: Antrum biopsy Clinical Info: GERD Specimen Number: [id number] CPT code: 18131,24890h7 METHODOLOGY: Deparaffinized sections of prefer/formalin-fixed tissue or PAP/DQ stained slides are incubated with monoclonal/polyclonal antibodies/oligonucleotide probes. Localization is made via biotin free immunoperoxidase method. Appropriate controls are performed and reacted as expected. Results on target cell population are indicated in the following table: RESULTS: ANTIBODY / CLONE RESULT H Pylori (polyclonal) negative P53 (DO-7) negative Ki-67 (30-9) negative These tests were developed and their performance characteristics determined by [facility]. They may not have been cleared or approved by the [place]. Food and Drug Administration. The FDA has determined that such clearance or approval is not necessary. The above immunohistochemical/dualISH markers are ordered and reviewed by the Pathologist. INTERPRETATION: Gastric antrum, biopsy: Negative for Helicobacter pylori organisms. No evidence of dysplasia. LILYL/ 09/06/2023
--- NOTE | 2023-09-04 07:30 | EGD_PTH ---
PATIENT: JACOBY COOK LOC: EN U#:[id number] AGE/SX: 62/F ROOM: RE09/04/[address]: Dr. Joyce Barboza MD : 1960 BED: DIS: 09/04/2023 SPEC #: [id number] RECD: 09/04/23 11:11 STATUS: RHONDA DARIEL #: [id number] MERLIN: 09/04/23 07:[address]: Joyce Barboza DEPT: SURGICAL PATHOLOGY RECD BY: Mary Sal ENTERED: 09/04/23 13:05 SP TYPE: EGD BIOPSY OT DR: Angeles Jauregui, [facility], DRAPERY ESTIMATOR-C Tissues: Gastric mucous membrane Procedures: Special Stain Group I Surgery Specimen Level IV Alcian Blue/PAS (control) HEADER OPERATION: EGD with biopsy PRE-OP DIAGNOSIS: GERD TISSUE SUBMITTED: Antrum biopsy MICROSCOPIC DIAGNOSIS Gastric antrum, biopsy: Chronic gastritis. Focal intestinal metaplasia. No evidence of dysplasia. See comment. / 09/05/2023 COMMENT The results of immunohistochemistry for Helicobacter pylori will be reported separately ([id number]). Immunohistochemistry ([id number]) for P53 and Ki-67 will be performed and results will be reported separately. Alcian blue/PAS stain with matched control supports the above diagnosis. MICROSCOPIC DESCRIPTION Slides are reviewed. GROSS DESCRIPTION Received in fixative is one container labeled with the patient's name and designated Antrum biopsy. The specimen consists of two irregular fragments of light singh soft tissue that in aggregate measure 0.6 x 0.3 x 0.1 cm. The specimen is totally submitted in one cassette. / 09/04/2023 TC:3 CPT:26036,85482
--- NOTE | 2023-09-04 07:43 | OP.EGD_ITS ---
Patient Name: Estela Kenney Procedure Date: 09/04/2023 7:25 AM Date of : 1960 Age: 62 Procedure: Upper GI endoscopy Indications: Heartburn Providers: Joyce Barobza MD Medicines: Monitored Anesthesia Care Patient Profile: This is a 62 year old female. Complications: No immediate complications. Procedure: Pre-Anesthesia Assessment: - Prior to the procedure, a History and Physical was performed, and patient medications and allergies were reviewed. The patient's tolerance of previous anesthesia was also reviewed. The risks and benefits of the procedure and the sedation options and risks were discussed with the patient. All questions were answered, and informed consent was obtained. Prior Anticoagulants: The patient has taken no anticoagulant or antiplatelet agents except for aspirin. ASA Grade Assessment: Per anesthesia. After reviewing the risks and benefits, the patient was deemed in satisfactory condition to undergo the procedure. After obtaining informed consent, the endoscope was passed under direct vision. Throughout the procedure, the patient's blood pressure, pulse, and oxygen saturations were monitored continuously. The gastroscope was introduced through the mouth, and advanced to the second part of duodenum. The upper GI endoscopy was accomplished without difficulty. The patient tolerated the procedure well. Scope In: 7:31:20 AM Scope Out: 7:34:31 AM Total Procedure Duration Time 0 hours 3 minutes 11 seconds Findings: The Z-line was variable and was found 38 cm from the incisors. The examined duodenum was normal. Bilious fluid was found in the entire examined stomach. Diffuse moderate inflammation characterized by erythema was found in the gastric antrum. Biopsies were taken with a cold forceps for histology. Biopsies were taken with a cold forceps for Helicobacter pylori cultures. The cardia and gastric fundus were normal on retroflexion. Impression: - Z-line variable, 38 cm from the incisors. - Normal examined duodenum. - Bilious gastric fluid. - Gastritis. Biopsied. Recommendation: - Await pathology results. - Discharge patient to home. - Resume previous diet. - Continue present medications. - Use sucralfate tablets 1 gram PO QID for 2 weeks. Procedure Code(s): --- Professional --- 99790, Esophagogastroduodenoscopy, flexible, transoral; with biopsy, single or multiple Diagnosis Code(s): --- Professional --- K22.89, Other specified disease of esophagus K29.70, Gastritis, unspecified, without bleeding R12, Heartburn CPT copyright 2021 [employer]. All rights reserved. The codes documented in this report are preliminary and upon production statistical clerk review may be revised to meet current compliance requirements. MD Joyce Castillo MD 09/04/2023 7:42:38 AM This report has been signed electronically. Number of Addenda: 0 Note Initiated On: 09/04/2023 7:25 AM
--- NOTE | 2023-09-04 07:43 | OP.CCLET_ITS ---
09/04/2023 Angeles Jauregui [facility], [place] [facility] Re : Upper GI endoscopy procedure for Estela Jauregui This procedure was performed on Monday, September 04, 2023. My impressions and recommendations are as follows: Impressions : - Z-line variable, 38 cm from the incisors. - Normal examined duodenum. - Bilious gastric fluid. - Gastritis. Biopsied. Recommendations : - Await pathology results. - Discharge patient to home. - Resume previous diet. - Continue present medications. - Use sucralfate tablets 1 gram PO QID for 2 weeks. My findings are described in the full procedure note, which is enclosed. If I can be of further assistance, please feel free to contact me at Doctor phone number(s): , Work: . Sincerely, MD Joyce Castillo MD 09/04/2023 7:42:38 AM This report has been signed electronically.
--- NOTE | 2023-09-04 07:45 | PCM.POST.ANE ---
Anesthesia: Postop Eval I Current Vital Signs Temperature: 97.5 F Pulse Rate: 67 Blood Pressure: 88/56 Respiratory Rate: 14 Pulse Ox: 93 Oxygen Delivery Method: Room Air Assessment Airway patent: Yes Spontaneous unlabored respirations: Yes Mental status: Awake and Calm nausea: No Vomiting: No Anesthesia Complication: No Fluid Hydration Crystalloid volume administer (ml): 400 Total IV fluid infused: 400 Progress Note Anesthesia document: Postop Eval 1 completed: Yes
--- NOTE | 2023-09-04 08:29 | PCM.POSTANE2 ---
Anesthesia Postop Eval I Sum Postop Eval Completion status Anesthesia document: Postop Eval 1 completed: Yes Anesthesia Postop Eval I Summary Anesthesia Postop Eval I Summary: Anesthesia Postop Eval I: Assessment Summary Airway patent Yes 09/04/23 07:45 [email or web address] Spontaneous unlabored Yes 09/04/23 07:45 [email or web address] respirations Mental status Awake,Calm 09/04/23 07:45 [email or web address] nausea No 09/04/23 07:45 [email or web address] Vomiting No 09/04/23 07:45 [email or web address] Anesthesia Postop Eval I: Fluid Summary Crystalloid volume administer 400 09/04/23 07:45 [email or web address] (ml) Colloids volume administered ( ml) Blood Product volume administered (ml) Total IV fluid infused 400 09/04/23 07:45 [email or web address] Anesthesia Postop Eval I: Summary Notes Anesthesia Complication No 09/04/23 07:45 [email or web address] Anesthesia Complication Comment: Post-operative progress note Anesthesia: Postop Eval II Evaluation Mental status: Awake Pain Level: 0 nausea: No Vomiting: No
== END 2023-09-04 08:24 | disposition home or self-care (01) ==
LOC: EN 06:11 → AC 06:14
PROVIDERS: PCP Nurse Practitioner Family; Referring Provider Nurse Practitioner Family; Visit Provider Surgery
PROC: 0DJ08ZZ Inspection of Upper Intestinal Tract, Via Natural or Artificial Opening Endoscopic (ICD-10-PCS; CPT 43235; principal; 2023-09-04 07:25)
DX: K29.50 Unspecified chronic gastritis without bleeding (principal); J44.9 Chronic obstructive pulmonary disease, unspecified; Z79.4 Long term (current) use of insulin; E11.22 Type 2 diabetes mellitus with diabetic chronic kidney disease; N18.30 Chronic kidney disease, stage 3 unspecified; K21.9 Gastro-esophageal reflux disease without esophagitis; F41.9 Anxiety disorder, unspecified; I12.9 Hypertensive chronic kidney disease with stage 1 through stage 4 chronic kidney disease, or unspecified chronic kidney disease; F32.A Depression, unspecified; K31.89 Other diseases of stomach and duodenum; Z80.0 Family history of malignant neoplasm of digestive organs; Z79.82 Long term (current) use of aspirin; Z79.899 Other long term (current) drug therapy; Z87.891 Personal history of nicotine dependence
CPT/HCPCS: 43239; 82962; 88305; 88312; 88341; 88342; J7120; J2405

== ENCOUNTER → 2023-09-28 | Outpatient (CLI) | payer MEDICARE, SELFPAY ==
--- NOTE | 2023-09-28 13:18 | BI_ITS ---
MAMMOGRAPHY - BILATERAL SCREENING REASON FOR EXAM: Female, 62 years old. Routine annual screening examination. PERTINENT HISTORY: Grandmother with breast cancer. Remote right stereotactic breast biopsy. TECHNIQUE: Digital bilateral breast todd (3D mammographic acquisition) in the CC and MLO projections. 2-D mediolateral oblique (MLO) and craniocaudad (CC) views of both breasts were obtained. CAD: Full Field Digital Mammography with Computer Added Detection was performed. COMPARISON: Comparison is made with prior study May 09, 2022 and May 03, 2021. FINDINGS: Breast Composition: The breasts are almost entirely fatty. There are no dominant masses or suspicious calcifications. Stable bilateral fat containing axillary lymph nodes. A tissue clip marker is once again seen in the deep inferior central portion of the right breast. No other significant abnormalities are identified. There has been no significant change since the prior study. BI/SCRN MAMM (CAD)W/TODD BILAT IMPRESSION: Stable bilateral screening mammogram. Yearly follow-up mammogram recommended. (A) ASSESSMENT CATEGORY: BIRADS Category 2: Benign. A letter regarding these results will be sent to the patient by the facility within 30 days. Approximately 10% of breast cancers are not detected by mammography. A normal mammogram should not delay biopsy of a clinically suspicious abnormality. [id number] Electronically Signed: Zafar Sue MD at 13:54 EDT ,
== END | disposition home or self-care (01) ==
LOC: OPBI 13:17
PROVIDERS: PCP Nurse Practitioner Family; Referring Provider Nurse Practitioner Family; Visit Provider Nurse Practitioner Family
DX: Z12.31 Encounter for screening mammogram for malignant neoplasm of breast (principal)
CPT/HCPCS: 77063; 77067

== ENCOUNTER → 2023-12-11 | Outpatient (CLI) | payer MEDICARE, SELFPAY ==
[2023-12-11 17:14] LABS: Absolute Lymphocyte Count 2.32 X10^3/uL (0.83-4.51); Basophil# 0.04 X10^3/uL; Basophil% 0.6 % (0-1); Eosinophil# 0.31 X10^3/uL; Eosinophils% 4.4 % (0-5); Hemoglobin 14.2 g/dL (12.0-15.0); Lymphocyte # 2.32 X10^3/ul (0.83-4.51); Lymphocyte % 32.6 % (19-41); Mean Corp Hgb Conc 32.3 g/dL (32-36); Mean Corpuscular Hgb 31.3 pg (27.0-32.0); Mean Corpuscular Volume 97.1 fL (81-99); Mean Platelet Vol. 9.6 fl (6.2-12.0); Monocyte# 0.47 X10^3/uL; Monocyte% 6.6 % (0-10); NRBC Flagged by Analyzer 0 % (0-5); Neutrophil # 3.95 X10^3/uL (2.7-7.7); Neutrophil % 55.5 % (47-70); Platelet Count 154 K/mm3 (150-450); RBC Distribution Width CV 14.5 % (11.6-14.6); RBC Distribution Width SD 51.9 fl (35.1-43.9); Red Blood Count 4.53 M/mm3 (4.2-5.4); White Blood Count 7.1 K/mm3 (4.4-11.0)
[2023-12-11 17:29] LABS: Vitamin D,25 Hydroxy 51.2 ng/mL
[2023-12-11 17:34] LABS: ALB/GLOB Ratio 0.9 RATIO (0.9-2.4); AST(SGOT) 23 U/L (15-37); Alanine Aminotransfer ALT/SGPT 46 U/L (13-56); Albumin, Serum 3.7 g/dL (3.2-5.0); Alkaline Phosphatase 30 U/L (45-117); Anion Gap 6 (5-15); BUN 23 mg/dL (7-18); BUN/Creat Ratio 16.5 RATIO (10-20); Calcium,Total 11.3 mg/dL (8.5-10.1); Chloride 105 mmol/L (98-107); Creatinine, Serum 1.39 mg/dL (0.55-1.02); EST Glomerular Filtration Rate 40 mL/min (>60); Est Glom Filt Rate - Afr Amer 49 mL/min (>60); Globulin 4.3 g/dL (2.2-4.2); Glucose 140 mg/dL (74-106); Potassium 5.5 mmol/L (3.5-5.1); Sodium Level 137 mmol/L (136-145)
[2023-12-11 17:47] LABS: Microalbumin,Random Urine 62.5 mg/L (NO RANGE EST.)
--- OUTSIDE RECORDS SUMMARY | 2023-12-11 20:21 | XMS RPT_ITS | CCD ---
Author Organization [facility] Care Team Providers Care Jewelry Facer Name Role Phone Simran Elaine CNP Primary Care Provider Kit CHIEF OPERATOR REFORMER, [place] Primary Care Provider [phone] Kit CHIEF OPERATOR REFORMER, [place] Primary Care Provider [phone] Kit CHIEF OPERATOR REFORMER, [place] Primary Care Provider Kit CHIEF OPERATOR REFORMER, [place] Primary Care Provider LINA VIEIRA Attending Unavailable FREDIS, RHONDA Referring Unavailable KIT, ANGELES Primary Care Unavailable LINA VIEIRA Admitting Unavailable LINA VIEIRA Attending Unavailable KIT, ANGELES Primary Care Unavailable FREDIS, RHONDA Attending Unavailable KIT, ANGELES Primary Care Unavailable LINA VIEIRA Admitting Unavailable LINA VIEIRA Attending Unavailable SIMRAN ELAINE Primary Care Unavailable FREDIS, RHONDA Attending Unavailable FREDIS, RHONDA Referring Unavailable KIT, ANGELES Primary Care Unavailable FREDIS, RHONDA Attending Unavailable FREDIS, RHONDA Referring Unavailable KIT, ANGELES Primary Care Unavailable KIT, ANGELES Primary Care Unavailable KIT, ANGELES Primary Care Unavailable KIT, ANGELES Primary Care Unavailable Allergies Allergy Classification Reported Allergen(s) Allergy Type Date of Onset Reaction(s) Facility (20 sources) Bee Venom Protein (Honey Bee); Translations: [BEE VENOM PROTEIN (HONEY BEE)] Drug Allergy 03-21-2022 Other: See Comments [facility] Medications Completed/Discontinued Medications Medication Drug Class(es) Dates Sig (Normalized) Sig (Original) acetaminophen 325 mg / HYDROcodone bitartrate 7.5 mg oral tablet (1 source) Opioid Agonist End: 07-26-2021 take 1 tablet by mouth every six hours as needed HYDROcodone-Acetam inophen 7.5-325 mg per tablet Take 1 tablet by mouth every 6 hours as needed. 0 07/26/2021 Discontinued Comment on above: Take 1 tablet by liban th every 6 hours as needed. acetaminophen 325 mg / oxyCODONE hydrochloride 5 mg oral tablet (20 sources) Opioid Agonist Start: 08-22-2022 End: 01-18-2023 take 1 tablet by mouth three times daily as needed for pain oxyCODONE-acetamin ophen (PERCOCET) 5-325 mg tablet Indications: Spinal stenosis, lumbar region, without neurogenic claudication Take 1 tablet by mouth three times a day as needed for pain for up to 30 days. 90 tablet 0 01/18/2023 Active Start: 07-23-2022 End: 08-15-2022 take 1 tablet by mouth three times daily as needed for pain oxyCODONE-acetaminophen (PERCOCET) 5-325 mg tablet Indications: Chronic bilateral low back pain with bilateral sciatica Take 1 tablet by mouth three times daily as needed for pain for up to 30 days. Do not start before July 23, 2022. 90 tablet 0 07/23/2022 08/15/2022 Discontinued Start: 09-27-2021 End: 06-22-2022 take 1 tablet by mouth three times daily as needed for pain oxyCODONE-acetaminophen (PERCOCET) 5-325 mg tablet Indications: Chronic bilateral low back pain with bilateral sciatica Take 1 tablet by mouth three times daily as needed for pain for up to 30 days. Do not start before April 25, 2022. 90 tablet 0 04/25/2022 05/17/2022 Discontinued Start: 08-28-2021 End: 09-16-2021 take 1 tablet by mouth three times daily as needed oxyCODONE-acetaminophen (PERCOCET) 5-325 mg tablet Indications: Chronic bilateral low back pain with bilateral sciatica Take 1 tablet by mouth three times daily as needed. Do not start before August 28, 2021. 90 tablet 0 08/28/2021 09/16/2021 Discontinued Start: 08-28-2021 take 1 tablet by liban th three times daily as needed oxyCODONE-acetaminophen (PERCOCET) 5-325 mg tablet Indications: Chronic bilateral low back pain with bilateral sciatica Take 1 tablet by mouth three times daily as needed. Do not start before August 28, 2021. 90 tablet 0 08/28/2021 Active Start: 08-28-2021 take 1 tablet by liban th three times daily as needed oxyCODONE-acetaminophen (PERCOCET) 5-325 mg tablet Indications: Chronic bilateral low back pain with bilateral sciatica Take 1 tablet by mouth three times daily as needed. Do not start before August 28, 2021. 90 tablet 0 08/28/2021 Active Start: 07-29-2021 End: 08-15-2021 take 1 tablet by mouth three times daily as needed oxyCODONE-acetaminophen (PERCOCET) 5-325 mg tablet Indications: Chronic bilateral low back pain with bilateral sciatica Take 1 tablet by mouth three times daily as needed. Do not start before July 29, 2021. 90 tablet 0 07/29/2021 08/15/2021 Discontinued Start: 07-29-2021 take 1 tablet by liban th three times daily as needed oxyCODONE-acetaminophen (PERCOCET) 5-325 mg tablet Indications: Chronic bilateral low back pain with bilateral sciatica Take 1 tablet by mouth three times daily as needed. Do not start before July 29, 2021. 90 tablet 0 07/29/2021 Active Start: 06-29-2021 End: 07-26-2021 take 1 tablet by mouth every eight hours as needed oxyCODONE-acetaminophen (PERCOCET) 5-325 mg tablet Take 1 tablet by mouth three times daily as needed. 0 06/29/2021 07/26/2021 Discontinued End: 07-26-2021 oxyCODONE-acetaminophen 5-32 5 mg (PERCOCET) Take 1-2 tablets by mouth. 0 07/26/2021 Discontinued Comment on above: Take 1 tablet by liban th three times daily as needed. Do not start before July 29, 2021. Take 1-2 tablets by mouth. Take 1 tablet by liban th three times daily as needed. Take 1 tablet by liban th three times daily as needed. Do not start before August 28, 2021. Take 1 tablet by liban th three times daily as needed for pain for up to 30 days. Do not start before September 27, 2021. Take 1 tablet by liban th three times daily as needed for pain for up to 30 days. Do not start before October 27, 2021. Take 1 tablet by liban th three times daily as needed for pain for up to 30 days. Do not start before November 26, 2021. Take 1 tablet by liban th three times daily as needed for pain for up to 30 days. Do not start before December 26, 2021. Take 1 tablet by liban th three times daily as needed for pain for up to 30 days. Do not start before January 25, 2022. Take 1 tablet by liban th three times daily as needed for pain for up to 30 days. Do not start before February 24, 2022. Take 1 tablet by liban th three times daily as needed for pain for up to 30 days. Do not start before March 26, 2022. Take 1 tablet by liban th three times daily as needed for pain for up to 30 days. Do not start before April 25, 2022. Take 1 tablet by liban th three times daily as needed for pain for up to 30 days. Do not start before May 23, 2022. Take 1 tablet by liban th three times daily as needed for pain for up to 30 days. Do not start before August 22, 2022. Take 1 tablet by liban th three times daily as needed for pain for up to 30 days. Do not start before July 23, 2022. Take 1 tablet by liban th three times daily as needed for pain for up to 30 days. Do not start before September 21, 2022. Take 1 tablet by liban th three times daily as needed for pain for up to 30 days. Do not start before October 21, 2022. Take 1 tablet by liban th three times a day as needed for pain for up to 30 days. Do not start before November 19, 2022. Take 1 tablet by liban th three times a day as needed for pain for up to 30 days. Do not start before December 19, 2022. Take 1 tablet by liban th three times a day as needed for pain for up to 30 days. albuterol 0.21 mg/ml inhalation solution (20 sources) beta2-Adrenergic Agonist Albuter ol Sulfate 0.63 mg/3 mL nebulizer solution Use 1 Ampule via nebulizer every 6 hours as needed. 0 Active albuterol HFA (P ROVENTIL HFA, VENTOLIN HFA) 90 mcg/actuation inhaler Inhale 2 Puffs as instructed. 0 Active Comment on above: Use 1 Ampule via neb ulizer every 6 hours as needed. Inhale 2 Puffs as in structed. ascorbic acid 500 mg oral tablet (20 sources) Vitamin C Start: 021 ascorbic acid, vitamin C, (VITAMIN C) 500 mg tablet Take by mouth. 0 01/31/2021 Active Comment on above: Take by mouth. aspirin 81 mg delayed release oral tablet (20 sources) Platelet Aggregation Inhibitor, Nonsteroidal Anti-inflammatory Drug take 1 tablet by mouth once daily aspirin, enteric coated 81 mg EC tablet Take 81 mg by mouth once daily. 0 Active Comment on above: Take 81 mg by mouth once daily. Budesonide / formoterol (20 sources) Corticosteroid, beta2-Adrenergic Agonist Start: 015 take 2 puff(s) by inhalation twice daily budesonide-formoterol (SYMBICORT) 160-4.5 mcg/actuation inhaler Inhale 2 Puffs as instructed twice daily. 0 04/22/2014 Active Comment on above: Inhale 2 Puffs as in structed twice daily. cetirizine hydrochloride 10 mg oral capsule (20 sources) Histamine-1 Receptor Antagonist take 1 capsule by mouth once daily Cetirizine (ZYRTEC) 10 mg cap Take 10 mg by mouth once daily. 0 Active Comment on above: Take 10 mg by mouth once daily. cholecalciferol 0.025 mg oral capsule (20 sources) Vitamin D take 1 capsule by mouth once daily Cholecalciferol, Vitamin D3, 25 mcg (1,000 unit) cap Take 1,000 Units by mouth once daily. 0 Active Comment on above: Take 1,000 Units by mouth once daily. cyclobenzaprine hydrochloride 10 mg oral tablet (20 sources) Muscle Relaxant Start: 023 take 1 tablet by mouth three times daily cyclobenzaprine (FLEXERIL) 10 mg tablet Take 1 tablet by mouth three times a day. 90 tablet 0 12/17/2022 Active Start: 11-19-2022 take 1 tablet by liban th three times daily cyclobenzaprine (FLEXERIL) 10 mg tablet Take 1 tablet by mouth three times a day. 90 tablet 0 11/19/2022 Active Start: 11-19-2022 take 1 tablet by liban th three times daily cyclobenzaprine (FLEXERIL) 10 mg tablet Take 1 tablet by mouth three times a day. 90 tablet 0 11/19/2022 Active Start: 07-20-2022 End: 11-07-2022 take 1 tablet by mouth three times daily cyclobenzaprine (FLEXERIL) 10 mg tablet Take 1 tablet by mouth three times daily. 90 tablet 0 08/15/2022 09/20/2022 Discontinued Start: 11-15-2021 End: 05-17-2022 take 1 tablet by mouth three times daily cyclobenzaprine (FLEXERIL) 10 mg tablet Take 1 tablet by mouth three times daily. 90 tablet 0 05/17/2022 Active Start: 09-19-2021 End: 10-19-2021 take 1 tablet by mouth three times daily cyclobenzaprine (FLEXERIL) 10 mg tablet Take 1 tablet by mouth three times daily. 90 tablet 0 10/19/2021 Active Start: 08-15-2021 End: 09-16-2021 take 1 tablet by mouth three times daily cyclobenzaprine (FLEXERIL) 10 mg tablet Take 1 tablet by mouth three times daily. 90 tablet 0 08/15/2021 09/16/2021 Discontinued Comment on above: Take 1 tablet by liban th three times daily. Take 1 tablet by liban th three times a day. 1 ml denosumab 60 mg/ml prefilled syringe (20 sources) RANK Ligand Inhibitor Start: 2021 denosumab (PROLIA) 60 mg/mL Denosumab (Prolia) 60 mg/mL syringe Active 60 MG SC every 6 months July 27, 2021 12:00am 0 07/27/2021 Active Comment on above: Denosumab (Prolia) 6 0 mg/mL syringe Active 60 MG SC every 6 months July 27, 2021 12:00am dexlansoprazole (20 sources) Proton Pump Inhibitor DEXLANSOPRAZOLE (DEXILANT ORAL) Take by mouth. 0 Active Comment on above: Take by mouth. docusate sodium 100 mg oral capsule (20 sources) Start: 2020 docusate sodium (COLACE) 100 mg capsule Take by mouth. 0 05/06/2020 Active Comment on above: Take by mouth. DULoxetine 60 mg delayed release oral capsule (16 sources) Serotonin and Norepinephrine Reuptake Inhibitor Start: 2020 End: 2022 take 1 capsule by mouth once daily DULoxetine (CYMBALTA) 60 mg capsule Take 1 capsule by mouth once daily. 0 07/28/2020 02/15/2022 Discontinued Comment on above: Take 1 capsule by [facility] once daily. [id number] 0.3 ml EPINEPHrine 1 mg/ml auto-injector (20 sources) alpha-Adrenergic Agonist, beta-Adrenergic Agonist, Catecholamine Start: 2021 EPINEPHrine (EPIPEN) 0.3 mg/0.3 mL auto-injector inject 0.3 milliliters INTO MUSCLE OF OUTER THIGH ONCE WITH ONSET OF ALLERGIC REACTION 0 12/14/2021 Active Comment on above: inject 0.3 millilite rs INTO MUSCLE OF OUTER THIGH ONCE WITH ONSET OF ALLERGIC REACTION famotidine 20 mg oral tablet (20 sources) Histamine-2 Receptor Antagonist Start: 2021 take 1 tablet by mouth every twelve hours as needed famotidine (PEPCID) 20 mg tablet Take 20 mg by mouth twice daily as needed. 0 01/27/2022 Active Comment on above: Take 20 mg by mouth twice daily as needed. fluticasone propionate 0.05 mg/actuat metered dose nasal spray (20 sources) Corticosteroid take 1 spray(s) nasal route twice daily fluticasone (FLONASE) 50 mcg/actuation nasal spray fluticasone propionate 50 mcg/actuation nasal spray,suspension instill 1 spray into each nostril twice a day 0 Active Comment on above: fluticasone propiona te 50 mcg/actuation nasal spray,suspension instill 1 spray into each nostril twice a day FREESTYLE JUSTICE 2 SENSOR kit (20 sources) Start: 2021 FREESTYLE JUSTICE 2 SENSOR kit apply 1 SENSOR to back OF UPPER ARM REMOVE AND REPLACE every 14 d... (REFER TO PRESCRIPTION NOTES). 0 02/01/2022 Active Comment on above: apply 1 SENSOR to ba ck OF UPPER ARM REMOVE AND REPLACE every 14 d... (REFER TO PRESCRIPTION NOTES). gabapentin 100 mg oral capsule (1 source) Anti-epileptic Agent Start: 2015 End: 2022 gabapentin (NEURONTIN) 100 mg capsule glimepiride 4 mg oral tablet (20 sources) Sulfonylurea Start: 2021 take 1 tablet by mouth once daily glimepiride (AMARYL) 4 mg tablet Take 4 mg by mouth once daily. 0 01/02/2022 Active Comment on above: Take 4 mg by mouth o nce daily. HYDROcodone bitartrate 30 mg 24 hr extended release oral tablet, abuse-deterrent (4 sources) Opioid Agonist End: 2022 HYDROcodone bitartrate 30 mg TP24 Take 30 mg by mouth. 0 05/17/2022 Discontinued Comment on above: Take 30 mg by mouth. 3 ml insulin glargine 100 unt/ml pen injector (20 sources) Insulin Analog Start: 2020 insulin glargine (LANTUS SOLOSTAR U-100 INSULIN) 100 unit/mL (3 mL) Indications: Type 2 diabetes mellitus without complication, with long-term current use of insulin (HCC) Inject 40 Units subcutaneously daily at bedtime. 5 Pen 0 07/28/2020 Active Comment on above: Inject 40 Units subc utaneously daily at bedtime. 3 ml insulin lispro 100 unt/ml pen injector (1 source) Insulin Analog Start: 2022 inject 4 [IU] by subcutaneous injection once daily at dinner HUMALOG KWIKPEN INSULIN 100 unit/mL Inject 4 Units subcutaneously daily with dinner. 0 01/16/2023 Active Comment on above: Inject 4 Units subcu taneously daily with dinner. lansoprazole 30 mg delayed release oral capsule (20 sources) Proton Pump Inhibitor Start: 2015 lansoprazole (PREVACID) 30 mg capsule losartan potassium 50 mg oral tablet (20 sources) Angiotensin 2 Receptor Melissa Start: 2020 take 2 tablets by mouth once daily losartan (COZAAR) 50 mg tablet Indications: Essential hypertension Take 100 mg by mouth once daily. 0 07/28/2020 Active Start: 07-28-2020 take 0.5 tablet by m outh once daily losartan (COZAAR) 50 mg tablet Indications: Essential hypertension Take 0.5 tablets by mouth once daily. 0 07/28/2020 Active Comment on above: Take 0.5 tablets by mouth once daily. Take 100 mg by mouth once daily. meloxicam 7.5 mg oral tablet (20 sources) Nonsteroidal Anti-inflammatory Drug Start: take 1 tablet by mouth twice daily at mealtime meloxicam (MOBIC) 7.5 mg tablet Take 1 tablet by mouth two times a day. With food. 60 tablet 3 01/18/2023 Active Start: 07-28-2020 End: 12-07-2022 take 1 tablet by mouth twice daily at mealtime meloxicam (MOBIC) 7.5 mg tablet Take 1 tablet by mouth twice daily. With food. 60 tablet 0 08/15/2022 09/20/2022 Discontinued Comment on above: Take 1 tablet by liban th twice daily. With food. Take 1 tablet by liban th two times a day. With food. metFORMIN hydrochloride 1000 mg oral tablet (20 sources) Biguanide Start: 01-27-2022 End: 05-17-2022 take 1 tablet by mouth twice daily metFORMIN (GLUCOPHAGE) 1,000 mg tablet Take 1,000 mg by mouth twice daily. 0 01/27/2022 Active Start: 07-28-2020 End: 08-15-2021 take 2 tablets by mouth twice daily at mealtime metFORMIN (GLUCOPHAGE) 500 mg tablet Indications: Type 2 diabetes mellitus without complication, with long-term current use of insulin (HCC) Take by mouth twice daily with meals. 0 07/28/2020 08/15/2021 Discontinued (Discontinued by another Health Care Provider) Comment on above: Take by mouth twice daily with meals. metformin 1,000 mg t ablet take 1 tablet by mouth twice a day Take 1,000 mg by liban th twice daily. MULTIVIT &MINERALS/FERROUS FUM (MULTI VITAMIN ORAL) (20 sources) MULTIVIT &MINERALS/FERROUS FUM (MULTI VITAMIN ORAL) Take 1 tablet by mouth. 0 Active Comment on above: Take 1 tablet by liban th. multivitamin-ferrou s fumarate-folic acid (SPECTRAVITE ULTRA WOMEN) (20 sources) Start: 6 multivitamin-ferrous fumarate-folic acid (SPECTRAVITE ULTRA WOMEN) nystatin [id number] unt/ml topical cream (18 sources) Polyene Antifungal Start: 3 nystatin (MYCOSTATIN) cream 24 hr oxybutynin chloride 5 mg extended release oral tablet (20 sources) Cholinergic Muscarinic Antagonist Start: 2 take 1 tablet by mouth once daily oxybutynin XL (DITROPAN XL) 5 mg 24 hr tablet Take 5 mg by mouth once daily. 0 11/23/2021 Active Comment on above: Take 5 mg by mouth o nce daily. oxyCODONE 13.5 mg 12 hr extended release oral capsule, abuse-deterrent (20 sources) Opioid Agonist Start: End: take 1 capsule by mouth every twelve hours oxyCODONE myristate (XTAMPZA ER) 13.5 mg CSpT Indications: Spinal stenosis, lumbar region, without neurogenic claudication Take 1 capsule by mouth every 12 hours for 30 days. Do not start before January 19, 2023. 60 Each 0 01/19/2023 Active Start: 07-23-2022 End: 08-15-2022 oxyCODONE myristate (XTAMPZA ER) 13.5 mg CSpT Indications: Spinal stenosis, lumbar region, without neurogenic claudication Take 13.5 mg by mouth every 12 hours for 30 days. Do not start before July 23, 2022. 60 Each 0 07/23/2022 08/15/2022 Discontinued Start: 03-23-2022 End: 06-22-2022 take 13.5 mg by mouth every twelve hours oxyCODONE myristate (XTAMPZA ER) 13.5 mg CSpT Indications: Spinal stenosis, lumbar region, without neurogenic claudication Take 13.5 mg by mouth every 12 hours for 30 days. 60 Each 0 04/23/2022 05/17/2022 Discontinued Start: 08-21-2021 End: 03-19-2022 oxyCODONE myristate (XTAMPZA ER) 13.5 mg CSpT Indications: Spinal stenosis, lumbar region, without neurogenic claudication Take 13.5 mg by mouth every 12 hours for 30 days. Do not start before January 18, 2022. 60 Each 0 01/18/2022 02/15/2022 Discontinued End: 08-15-2021 oxyCODONE myristate (XTAMPZA ER) 13.5 mg CSpT Take 13.5 mg by mouth. 0 08/15/2021 Discontinued Comment on above: Take 13.5 mg by mout h. Take 13.5 mg by mout h every 12 hours for 30 days. Do not start before August 21, 2021. Take 13.5 mg by mout h every 12 hours for 30 days. Do not start before September 20, 2021. Take 13.5 mg by mout h every 12 hours for 30 days. Do not start before October 20, 2021. Take 13.5 mg by mout h every 12 hours for 30 days. Do not start before November 19, 2021. Take 13.5 mg by mout h every 12 hours for 30 days. Take 13.5 mg by mout h every 12 hours for 30 days. Do not start before January 18, 2022. Take 13.5 mg by mout h every 12 hours for 30 days. Do not start before February 17, 2022. Take 13.5 mg by mout h every 12 hours for 30 days. Do not start before May 23, 2022. Take 1 capsule by mo uth every 12 hours for 30 days. Do not start before August 22, 2022. Take 13.5 mg by mout h every 12 hours for 30 days. Do not start before July 23, 2022. Take 1 capsule by mo uth every 12 hours for 30 days. Do not start before September 21, 2022. Take 1 capsule by mo uth every 12 hours for 30 days. Do not start before October 21, 2022. Take 1 capsule by mo uth every 12 hours for 30 days. Do not start before November 19, 2022. Take 1 capsule by mo uth every 12 hours for 30 days. Do not start before December 19, 2022. Take 1 capsule by mo uth every 12 hours for 30 days. Do not start before January 19, 2023. OZEMPIC 0.25 mg or 0.5 mg (2 mg/3 mL) pen (1 source) Start: inject 0.5 mg by subcutaneous injection every week OZEMPIC 0.25 mg or 0.5 mg (2 mg/3 mL) pen INJECT 0.5 MG SUBCUTANEOUSLY ONCE WEEKLY 0 04/11/2023 Active Comment on above: INJECT 0.5 MG SUBCUT ANEOUSLY ONCE WEEKLY polyethylene glycol 3350 85947 mg powder for oral solution (20 sources) Osmotic Laxative polyethylene gl ycol 3350 17 gram/dose powder Take by mouth 3 times a WEEK. 0 Active Comment on above: Take by mouth 3 time s a WEEK. pravastatin sodium 80 mg oral tablet (20 sources) HMG-CoA Reductase Inhibitor Start: 014 pravastatin (PRAVACHOL) 80 mg tablet Take 80 mg by mouth. 0 06/13/2013 Active End: 08-15-2021 take 2 tablets by mouth once daily at bedtime pravastatin 40 mg tablet Take 80 mg by mouth daily at bedtime. 0 08/15/2021 Discontinued (Discontinued by another Health Care Provider) Comment on above: Take 80 mg by mouth daily at bedtime. Take 80 mg by mouth. pregabalin 100 mg oral capsule (20 sources) Start: 01-18-2023 take 1 capsule by mouth three times daily pregabalin (LYRICA) 100 mg capsule Indications: Spinal stenosis, lumbar region, without neurogenic claudication Take 1 capsule by mouth three times a day for 30 days. 90 capsule 0 01/18/2023 Active Start: 08-22-2022 End: 01-16-2023 take 1 capsule by mouth three times daily pregabalin (LYRICA) 100 mg capsule Indications: Spinal stenosis, lumbar region, without neurogenic claudication Take 1 capsule by mouth three times a day for 30 days. 90 capsule 0 12/17/2022 01/16/2023 Active Start: 07-23-2022 End: 08-15-2022 take 1 capsule by mouth three times daily pregabalin (LYRICA) 100 mg capsule Indications: Chronic bilateral low back pain with bilateral sciatica Take 1 capsule by mouth three times daily for 30 days. Do not start before July 23, 2022. 90 capsule 0 07/23/2022 08/15/2022 Discontinued Start: 12-26-2021 End: 06-22-2022 take 1 capsule by mouth three times daily pregabalin (LYRICA) 100 mg capsule Indications: Chronic bilateral low back pain with bilateral sciatica Take 1 capsule by mouth three times daily for 30 days. Do not start before April 25, 2022. 90 capsule 0 04/25/2022 05/17/2022 Discontinued Start: 07-29-2021 End: 12-19-2021 take 1 capsule by mouth three times daily pregabalin (LYRICA) 100 mg capsule Indications: Chronic bilateral low back pain with bilateral sciatica Take 1 capsule by mouth three times daily for 30 days. Do not start before November 16, 2021. 90 capsule 0 11/16/2021 12/19/2021 Discontinued Start: 07-28-2020 End: 07-26-2021 Pregabalin (LYRICA) 200 mg c apsule Take 100 mg by mouth twice daily. 0 07/28/2020 07/26/2021 Discontinued Comment on above: Take 1 capsule by mo uth three times daily for 30 days. Do not start before July 29, 2021. Take 100 mg by mouth twice daily. Take 1 capsule by mo uth three times daily for 30 days. Do not start before August 27, 2021. Take 1 capsule by mo uth three times daily for 30 days. Do not start before September 26, 2021. Take 1 capsule by mo uth three times daily for 30 days. Do not start before October 26, 2021. Take 1 capsule by mo uth three times daily for 30 days. Do not start before November 16, 2021. Take 1 capsule by mo uth three times daily for 30 days. Do not start before December 26, 2021. Take 1 capsule by mo uth three times daily for 30 days. Do not start before January 25, 2022. Take 1 capsule by mo uth three times daily for 30 days. Do not start before February 24, 2022. Take 1 capsule by mo uth three times daily for 30 days. Do not start before March 26, 2022. Take 1 capsule by mo uth three times daily for 30 days. Do not start before April 25, 2022. Take 1 capsule by mo uth three times daily for 30 days. Do not start before May 23, 2022. Take 1 capsule by mo uth three times daily for 30 days. Do not start before August 22, 2022. Take 1 capsule by mo uth three times daily for 30 days. Do not start before July 23, 2022. Take 1 capsule by mo uth three times daily for 30 days. Do not start before September 21, 2022. Take 1 capsule by mo uth three times daily for 30 days. Do not start before October 21, 2022. Take 1 capsule by mo uth three times a day for 30 days. Do not start before November 19, 2022. Take 1 capsule by mo uth three times a day for 30 days. 24 hr propranolol hydrochloride 80 mg extended release oral capsule (3 sources) beta-Adrenergic Melissa End: 2 take 1 capsule by mouth once daily propranolol ER (INDERAL LA) 80 mg 24 hr capsule Take 80 mg by mouth once daily. 0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 multivitamin-ferrous fumarate-folic acid (SPECTRAVITE ULTRA WOMEN) - oxybutynin XL (DITROPAN XL) 5 mg 24 hr tablet Take 5 mg by mouth once daily. - DROPLET PEN NEEDLE 32 gauge x 1/4 use 1 NEEDLE to inject MEDICATION subcutaneously once daily - pravastatin (PRAVACHOL) 80 mg tablet Take 80 mg by mouth. - VITAMIN B COMPLEX ORAL Take by mouth. - Zinc Sulfate 25 mg zinc (110 mg) tab Take by m (more content not included)... [facility] OPERATIVE NOon 11-16-2022 OPERATIVE NO HNO ID: [id number] Author: Lina Vieira DO Service: Pain Management Author Type: Physician Type: Operative Report Filed: 11/16/2022 11:53 AM Note Text: -------- Summary: Left L-SNRB at L3-S1 -------- PROCEDURE: LEFT lumbar selective nerve root block at L3-S1 DATE OF SERVICE: November 16, 2022 PREPROCEDURE DIAGNOSIS: S43.91XA , S33.5XXA , S40.011A , S50.11XA , S30.0XXA , S46.011A , M54.17 , S43.431A , M25.811 , M51.26, M75.41 , M19.011 , M48.06 POSTPROCEDURE DIAGNOSIS:same ALLERGIES: none ANESTHESIA: local with Xanax 1 mg PO COMPLICATIONS: none CONSENT: Risks of the procedure including but not limited to bleeding, infection, nerve damage, seizure, abscess formation, hematoma formation, headache, failure of the pain to improve and potential worsening of the pain, were explained in full to the patient who verbalized understanding and wishes to proceed with the injection at this time. Written informed consent was thereby obtained. BRIEF HISTORY: see charts. DESCRIPTION OF PROCEDURE: After written informed consent was obtained, the patient was taken to the operating room and placed in the prone position. The patient was prepped and draped in a sterile fashion with __chloraprep swabs____. The skin and subcutaneous tissues were infiltrated with ____3 ml 0.25% Marcaine using a 25 gauge 1 1/2 inch___ needle. A __22 gauge 3 ? inch spinal__ needle was advanced under fluoroscopic guidance in the oblique view into __the left L3__ neural foramen. After negative aspiration __1 ml 0.25% Marcaine mixed with 1 ml Celestone 6 mg was slowly injected. Pulse oximetry and heart rate monitor and maintained throughout procedure. A __22 gauge 3 ? inch spinal__ needle was advanced under fluoroscopic guidance in the oblique view into __the left L4__ neural foramen. After negative aspiration __1 ml 0.25% Marcaine mixed with 1 ml Celestone 6 mg was slowly injected. Pulse oximetry and heart rate monitor and maintained throughout procedure. A __22 gauge 3 ? inch spinal__ needle was advanced under fluoroscopic guidance in the oblique view into __the left L5__ neural foramen. After negative aspiration __1 ml 0.25% Marcaine mixed with 1 ml Celestone 6 mg was slowly injected. Pulse oximetry and heart rate monitor and maintained throughout procedure. A __22 gauge 3 ? inch spinal__ needle was advanced under fluoroscopic guidance in the oblique view into __the left S1__ neural foramen. After negative aspiration __1 ml 0.25% Marcaine mixed with 1 ml Celestone 6 mg was slowly injected. Pulse oximetry and heart rate monitor and maintained throughout procedure. The patient tolerated the procedure well, and all needles were removed intact. Hemostasis was maintained, and there were no paresthesias or complications. After a period of observation during which the patient's vital signs remained stable, the patient was discharged with supervision to home in good condition. [facility] 11-11-2022 DUNIA Telephone (KAM) -------- ESTELA KENNEY ([id number]) 1960 F Date Time Provider Department 11/11/22 LINA VIEIRA During your visit today, we recorded the following information about you: Allergies As of Date: 11/11/2022 Noted Allergy Reaction BEE VENOM PROTEIN (HONEY BEE) 03/21/2022 14 - Other: See Comments Date Reviewed: 11/07/2022 Reviewed by: Lyly Alaniz LPN - Fully Assessed Prescriptions as of 11/11/2022 - cyclobenzaprine (FLEXERIL) 10 mg tablet Take 1 tablet by mouth three times a day. - oxyCODONE-acetaminophen (PERCOCET) 5-325 mg tablet Take 1 tablet by mouth three times a day as needed for pain for up to 30 days. Do not start before November 19, 2022. - oxyCODONE myristate (XTAMPZA ER) 13.5 mg CSpT Take 1 capsule by mouth every 12 hours for 30 days. Do not start before November 19, 2022. - pregabalin (LYRICA) 100 mg capsule Take 1 capsule by mouth three times a day for 30 days. Do not start before November 19, 2022. - meloxicam (MOBIC) 7.5 mg tablet Take 1 tablet by mouth two times a day. With food. - nystatin (MYCOSTATIN) cream - Zinc Sulfate 25 mg zinc (110 mg) tab Take by mouth. - ascorbic acid, vitamin C, (VITAMIN C) 500 mg tablet Take by mouth. - cyanocobalamin, vitamin B-12, 5,000 mcg subl - denosumab (PROLIA) 60 mg/mL Denosumab (Prolia) 60 mg/mL syringe Active 60 MG SC every 6 months July 27, 2021 12:00am - docusate sodium (COLACE) 100 mg capsule Take by mouth. - EPINEPHrine (EPIPEN) 0.3 mg/0.3 mL auto-injector inject 0.3 milliliters INTO MUSCLE OF OUTER THIGH ONCE WITH ONSET OF ALLERGIC REACTION - famotidine (PEPCID) 20 mg tablet Take 20 mg by mouth twice daily as needed. - MyMedMatchSTYLE JUSTICE 2 SENSOR kit apply 1 SENSOR to back OF UPPER ARM REMOVE AND REPLACE every 14 d... (REFER TO PRESCRIPTION NOTES). - fluticasone (FLONASE) 50 mcg/actuation nasal spray fluticasone propionate 50 mcg/actuation nasal spray,suspension instill 1 spray into each nostril twice a day - glimepiride (AMARYL) 4 mg tablet Take 4 mg by mouth once daily. - lansoprazole (PREVACID) 30 mg capsule - metFORMIN (GLUCOPHAGE) 1,000 mg tablet Take 1,000 mg by mouth twice daily. - multivitamin-ferrous fumarate-folic acid (SPECTRAVITE ULTRA WOMEN) - oxybutynin XL (DITROPAN XL) 5 mg 24 hr tablet Take 5 mg by mouth once daily. - DROPLET PEN NEEDLE 32 gauge x 1/4 use 1 NEEDLE to inject MEDICATION subcutaneously once daily - pravastatin (PRAVACHOL) 80 mg tablet Take 80 mg by mouth. - VITAMIN B COMPLEX ORAL Take by mouth. - Zinc Sulfate 25 mg zinc (110 mg) tab Take by mouth. - Cetirizine (ZYRTEC) 10 mg cap Take 10 mg by mouth once daily. - losartan (COZAAR) 50 mg tablet Take 0.5 tablets by mouth once daily. - insulin glargine (LANTUS SOLOSTAR U-100 INSULIN) 100 unit/mL (3 mL) Inject 40 Units subcutaneously daily at bedtime. - DEXLANSOPRAZOLE (DEXILANT ORAL) Take by mouth. - albuterol HFA (PROVENTIL HFA, VENTOLIN HFA) 90 mcg/actuation inhaler Inhale 2 Puffs as instructed. - budesonide-formoterol (SYMBICORT) 160-4.5 mcg/actuation inhaler Inhale 2 Puffs as instructed twice daily. - Albuterol Sulfate 0.63 mg/3 mL nebulizer solution Use 1 Ampule via nebulizer every 6 hours as needed. - Cholecalciferol, Vitamin D3, 25 mcg (1,000 unit) cap Take 1,000 Units by mouth once daily. - aspirin, enteric coated 81 mg EC tablet Take 81 mg by mouth once daily. - MULTIVIT ANDMINERALS/FERROUS FUM (MULTI VITAMIN ORAL) Take 1 tablet by mouth. - polyethylene glycol 3350 17 gram/dose powder Take by mouth 3 times a WEEK. Problem List As Of Date 11/11/2022 Noted Resolved HTN (hypertension) [I10] 04/14/2014 Obesity [E66.9] 04/14/2014 Smoking [F17.200] 04/14/2014 05/17/2022 Chronic low back pain [M54.50, G89.29] 04/14/2014 GERD (gastroesophageal reflux disease) [K21.9] 04/14/2014 Thoracic or lumbosacral neuritis or radiculitis*04/16/2014 Right flank pain [R10.9] 04/29/2014 Glaucoma [H40.9] 05/07/2014 Emphysema of lung (HCC) [J43.9] 05/07/2014 Nephrolithiasis [N20.0] 05/08/2014 Gastroesophageal reflux disease [K21.9] 05/12/2015 05/12/2015 Dysphagia [R13.10] 05/12/2015 05/12/2015 Neck pain [M54.2] 07/02/2018 Type 2 diabetes mellitus without complication, *07/28/2020 Tremors of nervous system [R25.1] 07/28/2020 05/17/2022 Lumbago-sciatica due to displacement of lumbar *02/15/2022 Spinal stenosis, lumbar region, without neuroge*02/15/2022 Sprain of lumbar region [S33.5XXA] 02/15/2022 Abnormal electrocardiography [R94.31] 05/13/2021 Atypical chest pain [R07.89] 05/17/2022 Contusion of lower back and pelvis, initial enc*12/11/2017 Dehydration [E86.0] 05/17/2022 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 [facility] CNOVon 11-07-2022 CN Office Visit (KAM ) -------- ESTELA KENNEY ([id number]) 1960 F Date Time Provider Department 11/07/22 2:30 PM LINA VIEIRA During your visit today, we recorded the following information about you: Pulse Respiration Blood pressure Weight 85/minute 18/minute 113/62 73.9 kg Height 1.524 m Lina Vieira DO 11/11/2022 9:43 AM Signed DATE: November 07, 2022 claim # [id number] DOI: 03/09/2008 Allowed diagnosis: S43.401A, S33.5XXA, S40.011A, S50.11XA, S30.0XA, S46.011A, M54.17, S43.431A, M25.811, M51.27, M75.41, M19.077, M48.061 Chief Complaint: Lower back History of Present Illness: Estela Kenney is a 62 year old female being seen at [facility] for a evaluation and/or management of their chronic pain. The patient was last seen in the office on 08/15/2022 by Rhonda Madedn NP, and the plan of care was [...] , low transverse CHOLECYSTECTOMY 02/05/1999 Cholecystectomy laparoscopic ESOPHAGOGASTRODUODENOSCO PY TRANSORAL DIAGNOSTIC 05/12/2015 EGD HYSTERECTOMY HX LITHOTRIPSY [...] heart attack Heart Sister 50 of heart att (more content not included)... [facility] ESTELA KENNEY ([id number]) 1960 F Date Time Provider Department 10/05/22 ANT SMITH During your visit today, we recorded the following information about you: Candace Ely MA 10/05/2022 6:44 AM Signed Items addressed in this encounter: Health Maintenance Review Able to close encounter. Candace Ely MA October 05, 2022 6:43 AM 6:43 AM Allergies As of Date: 10/05/2022 Noted Allergy Reaction BEE VENOM PROTEIN (HONEY BEE) 03/21/2022 14 - Other: See Comments Date Reviewed: 08/15/2022 Reviewed by: Rhonda Madden APRN.DRILL OPERATOR PNEUMATIC - Fully Assessed Prescriptions as of 10/05/2022 - cyclobenzaprine (FLEXERIL) 10 mg tablet Take 1 tablet by mouth three times daily. - meloxicam (MOBIC) 7.5 mg tablet Take 1 tablet by mouth twice daily. With food. - oxyCODONE myristate (XTAMPZA ER) 13.5 mg CSpT Take 1 capsule by mouth every 12 hours for 30 days. Do not start before September 21, 2022. - oxyCODONE-acetaminophen (PERCOCET) 5-325 mg tablet Take 1 tablet by mouth three times daily as needed for pain for up to 30 days. Do not start before September 21, 2022. - pregabalin (LYRICA) 100 mg capsule Take 1 capsule by mouth three times daily for 30 days. Do not start before September 21, 2022. - nystatin (MYCOSTATIN) cream - Zinc Sulfate 25 mg zinc (110 mg) tab Take by mouth. - ascorbic acid, vitamin C, (VITAMIN C) 500 mg tablet Take by mouth. - cyanocobalamin, vitamin B-12, 5,000 mcg subl - denosumab (PROLIA) 60 mg/mL Denosumab (Prolia) 60 mg/mL syringe Active 60 MG SC every 6 months July 27, 2021 12:00am - docusate sodium (COLACE) 100 mg capsule Take by mouth. - EPINEPHrine (EPIPEN) 0.3 mg/0.3 mL auto-injector inject 0.3 milliliters INTO MUSCLE OF OUTER THIGH ONCE WITH ONSET OF ALLERGIC REACTION - famotidine (PEPCID) 20 mg tablet Take 20 mg by mouth twice daily as needed. - FREESTYLE JUSTICE 2 SENSOR kit apply 1 SENSOR to back OF UPPER ARM REMOVE AND REPLACE every 14 d... (REFER TO PRESCRIPTION NOTES). - fluticasone (FLONASE) 50 mcg/actuation nasal spray fluticasone propionate 50 mcg/actuation nasal spray,suspension instill 1 spray into each nostril twice a day - glimepiride (AMARYL) 4 mg tablet Take 4 mg by mouth once daily. - lansoprazole (PREVACID) 30 mg capsule - metFORMIN (GLUCOPHAGE) 1,000 mg tablet Take 1,000 mg by mouth twice daily. - multivitamin-ferrous fumarate-folic acid (SPECTRAVITE ULTRA WOMEN) - oxybutynin XL (DITROPAN XL) 5 mg 24 hr tablet Take 5 mg by mouth once daily. - DROPLET PEN NEEDLE 32 gauge x 1/4 use 1 NEEDLE to inject MEDICATION subcutaneously once daily - pravastatin (PRAVACHOL) 80 mg tablet Take 80 mg by mouth. - VITAMIN B COMPLEX ORAL Take by mouth. - Zinc Sulfate 25 mg zinc (110 mg) tab Take by mouth. - Cetirizine (ZYRTEC) 10 mg cap Take 10 mg by mouth once daily. - losartan (COZAAR) 50 mg tablet Take 0.5 tablets by mouth once daily. - insulin glargine (LANTUS SOLOSTAR U-100 INSULIN) 100 unit/mL (3 mL) Inject 40 Units subcutaneously daily at bedtime. - DEXLANSOPRAZOLE (DEXILANT ORAL) Take by mouth. - albuterol HFA (PROVENTIL HFA, VENTOLIN HFA) 90 mcg/actuation inhaler Inhale 2 Puffs as instructed. - budesonide-formoterol (SYMBICORT) 160-4.5 mcg/actuation inhaler Inhale 2 Puffs as instructed twice daily. - Albuterol Sulfate 0.63 mg/3 mL nebulizer solution Use 1 Ampule via nebulizer every 6 hours as needed. - Cholecalciferol, Vitamin D3, 25 mcg (1,000 unit) cap Take 1,000 Units by mouth once daily. - aspirin, enteric coated 81 mg EC tablet Take 81 mg by mouth once daily. - MULTIVIT ANDMINERALS/FERROUS FUM (MULTI VITAMIN ORAL) Take 1 tablet by mouth. - polyethylene glycol 3350 17 gram/dose powder Take by mouth 3 times a WEEK. Problem List As Of Date 10/05/2022 Noted Resolved HTN (hypertension) [I10] 04/14/2014 Obesity [E66.9] 04/14/2014 Smoking [F17.200] 04/14/2014 05/17/2022 Chronic low back pain [M54.50, G89.29] 04/14/2014 GERD (gastroesophageal reflux disease) [K21.9] 04/14/2014 Thoracic or lumbosacral neuritis or radiculitis*04/16/2014 Right flank pain [R10.9] 04/29/2014 Glaucoma [H40.9] 05/07/2014 Emphysema of lung (HCC) [J43.9] 05/07/2014 Nephrolithiasis [N20.0] 05/08/2014 Gastroesophageal reflux disease [K21.9] 05/12/2015 05/12/2015 Dysphagia [R13.10] 05/12/2015 05/12/2015 Neck pain [M54.2] 07/02/2018 Type 2 diabetes mellitus without complication, *07/28/2020 Tremors of nervous system [R25.1] 07/28/2020 05/17/2022 Lumbago-sciatica due to displacement of lumbar *02/15/2022 Spinal stenosis, lumbar region, without neuroge*02/15/2022 Sprain of lumbar region [S33.5XXA] 02/15/2022 Abnormal electrocardiography [R94.31] 05/13/2021 Atypical chest pain [R07.89] 05/17/2022 Contusion of lower back and pelvis, initial enc*12/11/2017 Dehydration [E86.0] 05/17/2022 Disorder of brain [G (more content not included)... [facility] D[facility] (KAM) -------- ESTELA KENNEY ([id number]) 1960 F Date Time Provider Department 10/04/22 ANT SMITH During your visit today, we recorded the following information about you: Candace Ely MA 10/04/2022 2:51 PM Signed Items addressed in this encounter: Health Maintenance Review Follow up appt changed Able to close encounter. Candace Ely MA October 04, 2022 2:49 PM 2:49 PM Allergies As of Date: 10/04/2022 Noted Allergy Reaction BEE VENOM PROTEIN (HONEY BEE) 03/21/2022 14 - Other: See Comments Date Reviewed: 08/15/2022 Reviewed by: Rhonda Madden APRN.DRILL OPERATOR PNEUMATIC - Fully Assessed Prescriptions as of 10/04/2022 - cyclobenzaprine (FLEXERIL) 10 mg tablet Take 1 tablet by mouth three times daily. - meloxicam (MOBIC) 7.5 mg tablet Take 1 tablet by mouth twice daily. With food. - oxyCODONE myristate (XTAMPZA ER) 13.5 mg CSpT Take 1 capsule by mouth every 12 hours for 30 days. Do not start before September 21, 2022. - oxyCODONE-acetaminophen (PERCOCET) 5-325 mg tablet Take 1 tablet by mouth three times daily as needed for pain for up to 30 days. Do not start before September 21, 2022. - pregabalin (LYRICA) 100 mg capsule Take 1 capsule by mouth three times daily for 30 days. Do not start before September 21, 2022. - nystatin (MYCOSTATIN) cream - Zinc Sulfate 25 mg zinc (110 mg) tab Take by mouth. - ascorbic acid, vitamin C, (VITAMIN C) 500 mg tablet Take by mouth. - cyanocobalamin, vitamin B-12, 5,000 mcg subl - denosumab (PROLIA) 60 mg/mL Denosumab (Prolia) 60 mg/mL syringe Active 60 MG SC every 6 months July 27, 2021 12:00am - docusate sodium (COLACE) 100 mg capsule Take by mouth. - EPINEPHrine (EPIPEN) 0.3 mg/0.3 mL auto-injector inject 0.3 milliliters INTO MUSCLE OF OUTER THIGH ONCE WITH ONSET OF ALLERGIC REACTION - famotidine (PEPCID) 20 mg tablet Take 20 mg by mouth twice daily as needed. - FREESTYLE JUSTICE 2 SENSOR kit apply 1 SENSOR to back OF UPPER ARM REMOVE AND REPLACE every 14 d... (REFER TO PRESCRIPTION NOTES). - fluticasone (FLONASE) 50 mcg/actuation nasal spray fluticasone propionate 50 mcg/actuation nasal spray,suspension instill 1 spray into each nostril twice a day - glimepiride (AMARYL) 4 mg tablet Take 4 mg by mouth once daily. - lansoprazole (PREVACID) 30 mg capsule - metFORMIN (GLUCOPHAGE) 1,000 mg tablet Take 1,000 mg by mouth twice daily. - multivitamin-ferrous fumarate-folic acid (SPECTRAVITE ULTRA WOMEN) - oxybutynin XL (DITROPAN XL) 5 mg 24 hr tablet Take 5 mg by mouth once daily. - DROPLET PEN NEEDLE 32 gauge x 1/4 use 1 NEEDLE to inject MEDICATION subcutaneously once daily - pravastatin (PRAVACHOL) 80 mg tablet Take 80 mg by mouth. - VITAMIN B COMPLEX ORAL Take by mouth. - Zinc Sulfate 25 mg zinc (110 mg) tab Take by mouth. - Cetirizine (ZYRTEC) 10 mg cap Take 10 mg by mouth once daily. - losartan (COZAAR) 50 mg tablet Take 0.5 tablets by mouth once daily. - insulin glargine (LANTUS SOLOSTAR U-100 INSULIN) 100 unit/mL (3 mL) Inject 40 Units subcutaneously daily at bedtime. - DEXLANSOPRAZOLE (DEXILANT ORAL) Take by mouth. - albuterol HFA (PROVENTIL HFA, VENTOLIN HFA) 90 mcg/actuation inhaler Inhale 2 Puffs as instructed. - budesonide-formoterol (SYMBICORT) 160-4.5 mcg/actuation inhaler Inhale 2 Puffs as instructed twice daily. - Albuterol Sulfate 0.63 mg/3 mL nebulizer solution Use 1 Ampule via nebulizer every 6 hours as needed. - Cholecalciferol, Vitamin D3, 25 mcg (1,000 unit) cap Take 1,000 Units by mouth once daily. - aspirin, enteric coated 81 mg EC tablet Take 81 mg by mouth once daily. - MULTIVIT ANDMINERALS/FERROUS FUM (MULTI VITAMIN ORAL) Take 1 tablet by mouth. - polyethylene glycol 3350 17 gram/dose powder Take by mouth 3 times a WEEK. Problem List As Of Date 10/04/2022 Noted Resolved HTN (hypertension) [I10] 04/14/2014 Obesity [E66.9] 04/14/2014 Smoking [F17.200] 04/14/2014 05/17/2022 Chronic low back pain [M54.50, G89.29] 04/14/2014 GERD (gastroesophageal reflux disease) [K21.9] 04/14/2014 Thoracic or lumbosacral neuritis or radiculitis*04/16/2014 Right flank pain [R10.9] 04/29/2014 Glaucoma [H40.9] 05/07/2014 Emphysema of lung (HCC) [J43.9] 05/07/2014 Nephrolithiasis [N20.0] 05/08/2014 Gastroesophageal reflux disease [K21.9] 05/12/2015 05/12/2015 Dysphagia [R13.10] 05/12/2015 05/12/2015 Neck pain [M54.2] 07/02/2018 Type 2 diabetes mellitus without complication, *07/28/2020 Tremors of nervous system [R25.1] 07/28/2020 05/17/2022 Lumbago-sciatica due to displacement of lumbar *02/15/2022 Spinal stenosis, lumbar region, without neuroge*02/15/2022 Sprain of lumbar region [S33.5XXA] 02/15/2022 Abnormal electrocardiography [R94.31] 05/13/2021 Atypical chest pain [R07.89] 05/17/2022 Contusion of lower back and pelvis, initial enc*12/11/2017 Dehydration [E86.0] 05/18/19 (more content not included)... [facility] US KIDNEY/BLADDERon 09-06-19 US KIDNEY/BLADDER * * *Final Report* * * DATE OF EXAM: Sep 05 2022 1:30PM U 1055 - US KIDNEY/BLADDER / PROCEDURE REASON: R33.8 * * * * Physician Interpretation * * * * EXAMINATION: ULTRASOUND KIDNEYS/BLADDER CLINICAL HISTORY: Urinary retention. TECHNIQUE: Sonography of the kidneys and urinary bladder was performed. Images were obtained and stored in a permanent archive. MQ: UR_1 COMPARISON: Ultrasound kidney on 11/16/2015 RESULT: Limitations: Body habitus and bowel gas. Right Kidney: -Renal length: 9.5 cm -Parenchyma: Normal parenchymal echogenicity. Normal parenchymal thickness. -Collecting system: No hydronephrosis. -Calculus: No echogenic, shadowing calculus. -Lesion: None. Left Kidney: -Renal length: 10.6 cm -Parenchyma: Normal parenchymal echogenicity. Normal parenchymal thickness. -Collecting system: No hydronephrosis. -Calculus: No echogenic, shadowing calculus. -Lesion: None. Bladder: Distended urinary bladder without mass lesion seen. Prevoid volume 151 cc and postvoid volume 0 cc. Others: Increased echogenicity of the liver. IMPRESSION: Unremarkable sonographic exam of the kidneys and bladder. Duct Layer Helper: PSCB Transcribe Date/Time: Sep 06 2022 5:41P Dictated by : TRINA CORONEL MD This examination was interpreted and the report reviewed and electronically signed by: TRINA CORONEL MD on Sep 06 2022 5:43PM EST [id number] Normal [facility] Fatou 09-01-2022 CNPN Telephone (STEPHANAIN) -------- ESTELA KENNEY ([id number]) 1960 F Date Time Provider Department 09/01/22 RHONDA MADDEN During your visit today, we recorded the following information about you: Graciela Dhaliwal 09/01/2022 11:00 AM Signed I sent an e-mail regarding the status of the C-9 for left L3-S1 SNRBRayne KinneyGraciela September 01, 2022 11:00 AM Allergies As of Date: 09/01/2022 Noted Allergy Reaction BEE VENOM PROTEIN (HONEY BEE) 03/21/2022 14 - Other: See Comments Date Reviewed: 08/15/2022 Reviewed by: Rhonda Madden APRN.DRILL OPERATOR PNEUMATIC - Fully Assessed Reason for Visit: C-9 Status [Other] Prescriptions as of 09/01/2022 - cyclobenzaprine (FLEXERIL) 10 mg tablet Take 1 tablet by mouth three times daily. - meloxicam (MOBIC) 7.5 mg tablet Take 1 tablet by mouth twice daily. With food. - oxyCODONE myristate (XTAMPZA ER) 13.5 mg CSpT Take 1 capsule by mouth every 12 hours for 30 days. Do not start before August 22, 2022. - oxyCODONE-acetaminophen (PERCOCET) 5-325 mg tablet Take 1 tablet by mouth three times daily as needed for pain for up to 30 days. Do not start before August 22, 2022. - pregabalin (LYRICA) 100 mg capsule Take 1 capsule by mouth three times daily for 30 days. Do not start before August 22, 2022. - nystatin (MYCOSTATIN) cream - Zinc Sulfate 25 mg zinc (110 mg) tab Take by mouth. - ascorbic acid, vitamin C, (VITAMIN C) 500 mg tablet Take by mouth. - cyanocobalamin, vitamin B-12, 5,000 mcg subl - denosumab (PROLIA) 60 mg/mL Denosumab (Prolia) 60 mg/mL syringe Active 60 MG SC every 6 months July 27, 2021 12:00am - docusate sodium (COLACE) 100 mg capsule Take by mouth. - EPINEPHrine (EPIPEN) 0.3 mg/0.3 mL auto-injector inject 0.3 milliliters INTO MUSCLE OF OUTER THIGH ONCE WITH ONSET OF ALLERGIC REACTION - famotidine (PEPCID) 20 mg tablet Take 20 mg by mouth twice daily as needed. - MyMed[employer] JUSTICE 2 SENSOR kit apply 1 SENSOR to back OF UPPER ARM REMOVE AND REPLACE every 14 d... (REFER TO PRESCRIPTION NOTES). - fluticasone (FLONASE) 50 mcg/actuation nasal spray fluticasone propionate 50 mcg/actuation nasal spray,suspension instill 1 spray into each nostril twice a day - glimepiride (AMARYL) 4 mg tablet Take 4 mg by mouth once daily. - lansoprazole (PREVACID) 30 mg capsule - metFORMIN (GLUCOPHAGE) 1,000 mg tablet Take 1,000 mg by mouth twice daily. - multivitamin-ferrous fumarate-folic acid (SPECTRAVITE ULTRA WOMEN) - oxybutynin XL (DITROPAN XL) 5 mg 24 hr tablet Take 5 mg by mouth once daily. - DROPLET PEN NEEDLE 32 gauge x 1/4 use 1 NEEDLE to inject MEDICATION subcutaneously once daily - pravastatin (PRAVACHOL) 80 mg tablet Take 80 mg by mouth. - VITAMIN B COMPLEX ORAL Take by mouth. - Zinc Sulfate 25 mg zinc (110 mg) tab Take by mouth. - Cetirizine (ZYRTEC) 10 mg cap Take 10 mg by mouth once daily. - losartan (COZAAR) 50 mg tablet Take 0.5 tablets by mouth once daily. - insulin glargine (LANTUS SOLOSTAR U-100 INSULIN) 100 unit/mL (3 mL) Inject 40 Units subcutaneously daily at bedtime. - DEXLANSOPRAZOLE (DEXILANT ORAL) Take by mouth. - albuterol HFA (PROVENTIL HFA, VENTOLIN HFA) 90 mcg/actuation inhaler Inhale 2 Puffs as instructed. - budesonide-formoterol (SYMBICORT) 160-4.5 mcg/actuation inhaler Inhale 2 Puffs as instructed twice daily. - Albuterol Sulfate 0.63 mg/3 mL nebulizer solution Use 1 Ampule via nebulizer every 6 hours as needed. - Cholecalciferol, Vitamin D3, 25 mcg (1,000 unit) cap Take 1,000 Units by mouth once daily. - aspirin, enteric coated 81 mg EC tablet Take 81 mg by mouth once daily. - MULTIVIT ANDMINERALS/FERROUS FUM (MULTI VITAMIN ORAL) Take 1 tablet by mouth. - polyethylene glycol 3350 17 gram/dose powder Take by mouth 3 times a WEEK. Problem List As Of Date 09/01/2022 Noted Resolved HTN (hypertension) [I10] 04/14/2014 Obesity [E66.9] 04/14/2014 Smoking [F17.200] 04/14/2014 05/17/2022 Chronic low back pain [M54.50, G89.29] 04/14/2014 GERD (gastroesophageal reflux disease) [K21.9] 04/14/2014 Thoracic or lumbosacral neuritis or radiculitis*04/16/2014 Right flank pain [R10.9] 04/29/2014 Glaucoma [H40.9] 05/07/2014 Emphysema of lung (HCC) [J43.9] 05/07/2014 Nephrolithiasis [N20.0] 05/08/2014 Gastroesophageal reflux disease [K21.9] 05/12/2015 05/12/2015 Dysphagia [R13.10] 05/12/2015 05/12/2015 Neck pain [M54.2] 07/02/2018 Type 2 diabetes mellitus without complication, *07/28/2020 Tremors of nervous system [R25.1] 07/28/2020 05/17/2022 Lumbago-sciatica due to displacement of lumbar *02/15/2022 Spinal stenosis, lumbar region, without neuroge*02/15/2022 Sprain of lumbar region [S33.5XXA] 02/15/2022 Abnormal electrocardiography [R94.31] 05/13/2021 Atypical chest pain [R07.89] 05/17/2022 Contusion of lower back and pelvis, initial enc*12/11/2017 Dehydration [E86.0] 05/17/2022 Disorder of brain [G93.9] more content not included)... [facility] Fatou 08-22-2022 CNPN Telephone ([facility]) -------- ESTELA KENNEY ([id number]) 1960 F Date Time Provider Department 08/22/22 RHONDA MADDEN [facility] During your visit today, we recorded the following information about you: Keri Aguiar MA 08/22/2022 3:50 PM Signed Xtampza er pa sent to [facility] through [employer] with 2 ov notes,reyes mathur, and contract. Keri Aguiar MA August 22, 2022 3:50 PM Allergies As of Date: 08/22/2022 Noted Allergy Reaction BEE VENOM PROTEIN (HONEY BEE) 03/21/2022 14 - Other: See Comments Date Reviewed: 08/15/2022 Reviewed by: Rhonda Madden APRN.DRILL OPERATOR PNEUMATIC - Fully Assessed Reason for Visit: med pa [Other] Prescriptions as of 08/22/2022 - cyclobenzaprine (FLEXERIL) 10 mg tablet Take 1 tablet by mouth three times daily. - meloxicam (MOBIC) 7.5 mg tablet Take 1 tablet by mouth twice daily. With food. - oxyCODONE myristate (XTAMPZA ER) 13.5 mg CSpT Take 1 capsule by mouth every 12 hours for 30 days. Do not start before August 22, 2022. - oxyCODONE-acetaminophen (PERCOCET) 5-325 mg tablet Take 1 tablet by mouth three times daily as needed for pain for up to 30 days. Do not start before August 22, 2022. - pregabalin (LYRICA) 100 mg capsule Take 1 capsule by mouth three times daily for 30 days. Do not start before August 22, 2022. - nystatin (MYCOSTATIN) cream - Zinc Sulfate 25 mg zinc (110 mg) tab Take by mouth. - ascorbic acid, vitamin C, (VITAMIN C) 500 mg tablet Take by mouth. - cyanocobalamin, vitamin B-12, 5,000 mcg subl - denosumab (PROLIA) 60 mg/mL Denosumab (Prolia) 60 mg/mL syringe Active 60 MG SC every 6 months July 27, 2021 12:00am - docusate sodium (COLACE) 100 mg capsule Take by mouth. - EPINEPHrine (EPIPEN) 0.3 mg/0.3 mL auto-injector inject 0.3 milliliters INTO MUSCLE OF OUTER THIGH ONCE WITH ONSET OF ALLERGIC REACTION - famotidine (PEPCID) 20 mg tablet Take 20 mg by mouth twice daily as needed. - FREESTYLE JUSTICE 2 SENSOR kit apply 1 SENSOR to back OF UPPER ARM REMOVE AND REPLACE every 14 d... (REFER TO PRESCRIPTION NOTES). - fluticasone (FLONASE) 50 mcg/actuation nasal spray fluticasone propionate 50 mcg/actuation nasal spray,suspension instill 1 spray into each nostril twice a day - glimepiride (AMARYL) 4 mg tablet Take 4 mg by mouth once daily. - lansoprazole (PREVACID) 30 mg capsule - metFORMIN (GLUCOPHAGE) 1,000 mg tablet Take 1,000 mg by mouth twice daily. - multivitamin-ferrous fumarate-folic acid (SPECTRAVITE ULTRA WOMEN) - oxybutynin XL (DITROPAN XL) 5 mg 24 hr tablet Take 5 mg by mouth once daily. - DROPLET PEN NEEDLE 32 gauge x 1/4 use 1 NEEDLE to inject MEDICATION subcutaneously once daily - pravastatin (PRAVACHOL) 80 mg tablet Take 80 mg by mouth. - VITAMIN B COMPLEX ORAL Take by mouth. - Zinc Sulfate 25 mg zinc (110 mg) tab Take by mouth. - Cetirizine (ZYRTEC) 10 mg cap Take 10 mg by mouth once daily. - losartan (COZAAR) 50 mg tablet Take 0.5 tablets by mouth once daily. - insulin glargine (LANTUS SOLOSTAR U-100 INSULIN) 100 unit/mL (3 mL) Inject 40 Units subcutaneously daily at bedtime. - DEXLANSOPRAZOLE (DEXILANT ORAL) Take by mouth. - albuterol HFA (PROVENTIL HFA, VENTOLIN HFA) 90 mcg/actuation inhaler Inhale 2 Puffs as instructed. - budesonide-formoterol (SYMBICORT) 160-4.5 mcg/actuation inhaler Inhale 2 Puffs as instructed twice daily. - Albuterol Sulfate 0.63 mg/3 mL nebulizer solution Use 1 Ampule via nebulizer every 6 hours as needed. - Cholecalciferol, Vitamin D3, 25 mcg (1,000 unit) cap Take 1,000 Units by mouth once daily. - aspirin, enteric coated 81 mg EC tablet Take 81 mg by mouth once daily. - MULTIVIT ANDMINERALS/FERROUS FUM (MULTI VITAMIN ORAL) Take 1 tablet by mouth. - polyethylene glycol 3350 17 gram/dose powder Take by mouth 3 times a WEEK. Problem List As Of Date 08/22/2022 Noted Resolved HTN (hypertension) [I10] 04/14/2014 Obesity [E66.9] 04/14/2014 Smoking [F17.200] 04/14/2014 05/17/2022 Chronic low back pain [M54.50, G89.29] 04/14/2014 GERD (gastroesophageal reflux disease) [K21.9] 04/14/2014 Thoracic or lumbosacral neuritis or radiculitis*04/16/2014 Right flank pain [R10.9] 04/29/2014 Glaucoma [H40.9] 05/07/2014 Emphysema of lung (HCC) [J43.9] 05/07/2014 Nephrolithiasis [N20.0] 05/08/2014 Gastroesophageal reflux disease [K21.9] 05/12/2015 05/12/2015 Dysphagia [R13.10] 05/12/2015 05/12/2015 Neck pain [M54.2] 07/02/2018 Type 2 diabetes mellitus without complication, *07/28/2020 Tremors of nervous system [R25.1] 07/28/2020 05/17/2022 Lumbago-sciatica due to displacement of lumbar *02/15/2022 Spinal stenosis, lumbar region, without neuroge*02/15/2022 Sprain of lumbar region [S33.5XXA] 02/15/2022 Abnormal electrocardiography [R94.31] 05/13/2021 Atypical chest pain [R07.89] 05/17/2022 Contusion of lower back and pelvis, initial enc*12/11/2017 Dehydration [E86.0] (more content not included)... [facility] CNPN Telephone ([facility]) -------- ESTELA KENNEY ([id number]) 1960 F Date Time Provider Department 08/22/22 RHONDA MADDEN [facility] During your visit today, we recorded the following information about you: Keri Aguiar MA 08/22/2022 5:18 PM Signed Xtampza er approved through [facility] Approved 08/22/22-08/23/23 I indexed approval letter Keri Aguiar MA August 22, 2022 5:18 PM Allergies As of Date: 08/22/2022 Noted Allergy Reaction BEE VENOM PROTEIN (HONEY BEE) 03/21/2022 14 - Other: See Comments Date Reviewed: 08/15/2022 Reviewed by: Rhonda Madden APRN.DRILL OPERATOR PNEUMATIC - Fully Assessed Reason for Visit: xtampza approval [Other] Prescriptions as of 08/22/2022 - cyclobenzaprine (FLEXERIL) 10 mg tablet Take 1 tablet by mouth three times daily. - meloxicam (MOBIC) 7.5 mg tablet Take 1 tablet by mouth twice daily. With food. - oxyCODONE myristate (XTAMPZA ER) 13.5 mg CSpT Take 1 capsule by mouth every 12 hours for 30 days. Do not start before August 22, 2022. - oxyCODONE-acetaminophen (PERCOCET) 5-325 mg tablet Take 1 tablet by mouth three times daily as needed for pain for up to 30 days. Do not start before August 22, 2022. - pregabalin (LYRICA) 100 mg capsule Take 1 capsule by mouth three times daily for 30 days. Do not start before August 22, 2022. - nystatin (MYCOSTATIN) cream - Zinc Sulfate 25 mg zinc (110 mg) tab Take by mouth. - ascorbic acid, vitamin C, (VITAMIN C) 500 mg tablet Take by mouth. - cyanocobalamin, vitamin B-12, 5,000 mcg subl - denosumab (PROLIA) 60 mg/mL Denosumab (Prolia) 60 mg/mL syringe Active 60 MG SC every 6 months July 27, 2021 12:00am - docusate sodium (COLACE) 100 mg capsule Take by mouth. - EPINEPHrine (EPIPEN) 0.3 mg/0.3 mL auto-injector inject 0.3 milliliters INTO MUSCLE OF OUTER THIGH ONCE WITH ONSET OF ALLERGIC REACTION - famotidine (PEPCID) 20 mg tablet Take 20 mg by mouth twice daily as needed. - FREESTYLE JUSTICE 2 SENSOR kit apply 1 SENSOR to back OF UPPER ARM REMOVE AND REPLACE every 14 d... (REFER TO PRESCRIPTION NOTES). - fluticasone (FLONASE) 50 mcg/actuation nasal spray fluticasone propionate 50 mcg/actuation nasal spray,suspension instill 1 spray into each nostril twice a day - glimepiride (AMARYL) 4 mg tablet Take 4 mg by mouth once daily. - lansoprazole (PREVACID) 30 mg capsule - metFORMIN (GLUCOPHAGE) 1,000 mg tablet Take 1,000 mg by mouth twice daily. - multivitamin-ferrous fumarate-folic acid (SPECTRAVITE ULTRA WOMEN) - oxybutynin XL (DITROPAN XL) 5 mg 24 hr tablet Take 5 mg by mouth once daily. - DROPLET PEN NEEDLE 32 gauge x 4 use 1 NEEDLE to inject MEDICATION subcutaneously once daily - pravastatin (PRAVACHOL) 80 mg tablet Take 80 mg by mouth. - VITAMIN B COMPLEX ORAL Take by mouth. - Zinc Sulfate 25 mg zinc (110 mg) tab Take by mouth. - Cetirizine (ZYRTEC) 10 mg cap Take 10 mg by mouth once daily. - losartan (COZAAR) 50 mg tablet Take 0.5 tablets by mouth once daily. - insulin glargine (LANTUS SOLOSTAR U-100 INSULIN) 100 unit/mL (3 mL) Inject 40 Units subcutaneously daily at bedtime. - DEXLANSOPRAZOLE (DEXILANT ORAL) Take by mouth. - albuterol HFA (PROVENTIL HFA, VENTOLIN HFA) 90 mcg/actuation inhaler Inhale 2 Puffs as instructed. - budesonide-formoterol (SYMBICORT) 160-4.5 mcg/actuation inhaler Inhale 2 Puffs as instructed twice daily. - Albuterol Sulfate 0.63 mg/3 mL nebulizer solution Use 1 Ampule via nebulizer every 6 hours as needed. - Cholecalciferol, Vitamin D3, 25 mcg (1,000 unit) cap Take 1,000 Units by mouth once daily. - aspirin, enteric coated 81 mg EC tablet Take 81 mg by mouth once daily. - MULTIVIT ANDMINERALS/FERROUS FUM (MULTI VITAMIN ORAL) Take 1 tablet by mouth. - polyethylene glycol 3350 17 gram/dose powder Take by mouth 3 times a WEEK. Problem List As Of Date 08/22/2022 Noted Resolved HTN (hypertension) [I10] 04/14/2014 Obesity [E66.9] 04/14/2014 Smoking [F17.200] 04/14/2014 05/17/2022 Chronic low back pain [M54.50, G89.29] 04/14/2014 GERD (gastroesophageal reflux disease) [K21.9] 04/14/2014 Thoracic or lumbosacral neuritis or radiculitis*04/16/2014 Right flank pain [R10.9] 04/29/2014 Glaucoma [H40.9] 05/07/2014 Emphysema of lung (HCC) [J43.9] 05/07/2014 Nephrolithiasis [N20.0] 05/08/2014 Gastroesophageal reflux disease [K21.9] 05/12/2015 05/12/2015 Dysphagia [R13.10] 05/12/2015 05/12/2015 Neck pain [M54.2] 07/02/2018 Type 2 diabetes mellitus without complication, *07/28/2020 Tremors of nervous system [R25.1] 07/28/2020 05/17/2022 Lumbago-sciatica due to displacement of lumbar *02/15/2022 Spinal stenosis, lumbar region, without neuroge*02/15/2022 Sprain of lumbar region [S33.5XXA] 02/15/2022 Abnormal electrocardiography [R94.31] 05/13/2021 Atypical chest pain [R07.89] 05/17/2022 Contusion of lower back and pelvis, initial enc*12/11/2017 Dehydration (more content not included)... [facility] -------- ESTELA KENNEY ([id number]) 1960 F Date Time Provider Department 08/15/22 3:00 PM RHONDA MADDEN During your visit today, we recorded the following information about you: Pulse Respiration Blood pressure Weight 78/minute 19/minute 148/71 72.1 kg Height 1.524 m Rhonda Madden APRN.DRILL OPERATOR PNEUMATIC 08/15/2022 3:37 PM Signed SUBJECTIVE: Estela Kenney presents to [facility] Pain Management Department for a follow-up appointment for back pain [facility] Last seen by me on 05/17/22 [...] , low transverse CHOLECYSTECTOMY 02/05/1999 Cholecystectomy laparoscopic ESOPHAGOGASTRODUODENOSCO PY TRANSORAL DIAGNOSTIC 05/12/2015 EGD HYSTERECTOMY HX LITHOTRIPSY [...] bilaterally.Negative Fabere sign bilaterally ASSESSMENT: claim # [id number] DOI: 03/09/2008 Allowed diagnosis: S43.401A, S33.5XXA, S40.011A, S50.11XA, S30.0XA, S46.011A, M54.17, S43.431A, M25.811, M51.27, M75.41, M19.077, M48.061 (S33.5XXS) Lumbar sprain, sequela (primary encounter diagnosis) (M48.061) Spinal stenosis, lumbar region, without neurogenic claudication (M54.42, M54.41, G89.29) Chronic bilateral low back pain with bilateral sciati (more content not included)... [facility] CNOVon 05-17-2022 CNOV Office Visit ([facility] ) -------- ESTELA KENNEY ([id number]) 1960 F Date Time Provider Department 05/17/22 2:15 PM RHONDA MADDEN During your visit today, we recorded the following information about you: Pulse Respiration Blood pressure Weight 101/minute 19/minute 138/68 75.8 kg Height 1.554 m Rhonda Madden APRN.DRILL OPERATOR PNEUMATIC 05/17/2022 2:41 PM Signed SUBJECTIVE: Estela Kenney presents to [facility] Department for a follow-up appointment for back pain [facility] Last seen by tori dumont 02/15/22 [...] , low transverse CHOLECYSTECTOMY 02/05/1999 Cholecystectomy laparoscopic ESOPHAGOGASTRODUODENOSCO PY TRANSORAL DIAGNOSTIC 05/12/2015 EGD HYSTERECTOMY HX LITHOTRIPSY [...] daughter Psych: Mood and affect appropriate. Skin: [place], warm, and dry Pulm: no conversational shortness [...] Negative Fabere sign bilaterally ASSESSMENT: claim # [id number] DOI: 03/09/2008 Allowed diagnosis: S43.401A, S33.5XXA, S40.011A, S50.11XA, S30.0XA, S46.011A, M54.17, S43.431A, M25.811, M51.27, M75.41, M19.077, M48.061 (M48.061) Spinal stenosis, lumbar region (more content not included)... [facility] BRIEF OP NOTon 02-16-2022 BRIEF OP NOT HNO ID: [id number] Author: Lina Vieira DO Service: Pain Management Author Type: Physician Type: Brief Op Note Filed: 02/16/2022 3:18 PM Note Text: -------- Summary: left lumbar selective nerve root block at L3-S1. -------- PROCEDURE: left lumbar selective nerve root block at _L3-S1. DATE OF SERVICE: February 16, 2022 PREPROCEDURE DIAGNOSIS: S43.91XA , S33.5XXA , S40.011A , S50.11XA , S30.0XXA , S46.011A , M54.17 , S43.431A , M25.811 , M51.26, M75.41 , M19.011 , M48.06 POSTPROCEDURE DIAGNOSIS:same ALLERGIES: none ANESTHESIA: local with xanax 2 mg PO COMPLICATIONS: none CONSENT: Risks of the procedure including but not limited to bleeding, infection, nerve damage, seizure, abscess formation, hematoma formation, headache, failure of the pain to improve and potential worsening of the pain, were explained in full to the patient who verbalized understanding and wishes to proceed with the injection at this time. Written informed consent was thereby obtained. BRIEF HISTORY: see charts. DESCRIPTION OF PROCEDURE: After written informed consent was obtained, the patient was taken to the operating room and placed in the prone position. The patient was prepped and draped in a sterile fashion with __chloraprep swabs____. The skin and subcutaneous tissues were infiltrated with ____3 ml 0.25% Marcaine using a 25 gauge 1 1/2 inch___ needle. A __22 gauge 3 ? inch spinal__ needle was advanced under fluoroscopic guidance in the oblique view into __the left L3__ neural foramen. After negative aspiration __1 ml 0.25% Marcaine mixed with 1 ml Celestone 6 mg was slowly injected. Pulse oximetry and heart rate monitor and maintained throughout procedure. A __22 gauge 3 ? inch spinal__ needle was advanced under fluoroscopic guidance in the oblique view into __the left L4__ neural foramen. After negative aspiration __1 ml 0.25% Marcaine mixed with 1 ml Celestone 6 mg was slowly injected. Pulse oximetry and heart rate monitor and maintained throughout procedure. A __22 gauge 3 ? inch spinal__ needle was advanced under fluoroscopic guidance in the oblique view into __the left L5__ neural foramen. After negative aspiration __1 ml 0.25% Marcaine mixed with 1 ml Celestone 6 mg was slowly injected. Pulse oximetry and heart rate monitor and maintained throughout procedure. A __22 gauge 3 ? inch spinal__ needle was advanced under fluoroscopic guidance in the oblique view into __the left S1__ neural foramen. After negative aspiration __1 ml 0.25% Marcaine mixed with 1 ml Celestone 6 mg was slowly injected. Pulse oximetry and heart rate monitor and maintained throughout procedure. The patient tolerated the procedure well, and all needles were removed intact. Hemostasis was maintained, and there were no paresthesias or complications. After a period of observation during which the patient's vital signs remained stable, the patient was discharged with supervision to home in good condition. [facility] NURSING PROGon 02-16-2022 NURSING PROG HNO ID: [id number] Author: Jackie Mahan RN Service: Pain Management Author Type: Registered Nurse Type: Nursing Progress Note Filed: 02/16/2022 4:02 PM Note Text: Post procedure pt very sedated and awakens to tactile stimulation. Pt taken to recovery room for extended monitoring. Pt vitals remained stable with bp running 90s-100/40-50s. Pts BS 194 on fingerstick. Pt will awaken to daughters voice and states she has plenty of help at home to assist in bringing pt inside and caring for her. Dr Vieira is aware and pt was discharged home via wheelchair with daughter. Jackie Mahan RN [facility] NURSING PROG HNO ID: [id number] Author: Kristyn Edwards RN Service: ? Author Type: Registered Nurse Type: Nursing Progress Note Filed: 02/16/2022 2:44 PM Note Text: -------- Summary: preinjection update/assessment -------- 1420 Pt states that she is to have left sided injection today; chart review done with Dr. Vieira and per [facility] left side injection is indicated on revised/updated extension. 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 Pt states that FBS @ 1355 was 189 and per tar leveler preprocedure instruction took 10 units lantus insulin preprocedure. Pt has not held metformin last night or this AM. Pt states that she has held baby ASA x5 days and is not on any other bloodthinners. Kristyn Edwards RN [facility] XR FLUOROSCOPYon 02-16-2022 XR FLUOROSCOPY * * *Final Report* * * DATE OF EXAM: Feb 16 2022 3:17PM RHX [id number] - XR FLUOROSCOPY / PROCEDURE REASON: LUMBAR RADICULOPATHY * * * * Physician Interpretation * * * * XR FLUOROSCOPY Ordering Physician: LINA VIEIRA FLUOROSCOPY AND RADIOGRAPHS UTILIZED IN PAIN MANAGEMENT Clinical Statement: Lumbar radiculopathy FINDINGS: 37.1 second fluoroscopy time utilized. A total of 5 images were obtained during pain management procedure IMPRESSION: Documentation of fluoroscopy and radiographs utilized in pain management. Please see clinician's report for complete details. Duct Layer Helper: KEITH Transcribe Date/Time: Feb 16 2022 3:45P Dictated by : DANO FERGUSON MD This examination was interpreted and the report reviewed and electronically signed by: DANO FERGUSON MD on Feb 16 2022 3:45PM EST [id number] [facility] CNOVon 02-15-2022 CNSUKHWINDER Office Visit ([facility] ) -------- ESTELA KENNEY ([id number]) 1960 F Date Time Provider Department 02/15/22 2:30 PM RHONDA MADDEN During your visit today, we recorded the following information about you: Pulse Blood pressure 105/minute 131/80 Rhonda Madden APRN.DRILL OPERATOR PNEUMATIC 02/15/2022 3:34 PM Signed SUBJECTIVE: Estela Kenney presents to [facility] Department for a follow-up appointment for back pain [facility] Last seen by me on 11/15/21 [...] , low transverse CHOLECYSTECTOMY 02/05/1999 Cholecystectomy laparoscopic ESOPHAGOGASTRODUODENOSCO PY TRANSORAL DIAGNOSTIC 05/12/2015 EGD HYSTERECTOMY HX LITHOTRIPSY [...] Negative Fabere sign bilaterally ASSESSMENT: claim # [id number] DOI: 03/09/2008 Allowed diagnosis: S43.401A, S33.5XXA, S40.011A, [...] injection Followup in 3 months in office T (more content not included)... [facility] FLUOROSCOPY IN OR/PAIN MGTon 02-24-2021 FLUOROSCOPY IN OR/PAIN MGT FLUOROSCOPY IN OR/PAIN MGT Ordering Physician: Lina Vieira DO FLUOROSCOPY Clinical Statement: Disk displacement Comparison: None FINDINGS: Eight spot fluoroscopic images were saved demonstrating needle placement at multiple levels of the right lumbar spine. A total of 72 seconds fluoroscopy time was utilized. Please see the ordering clinician's report for full details. IMPRESSION: Documentation of fluoroscopy. This report was electronically signed by Suma King MD 02/24/2021 10:12 AM Reported By: SUMA KING M.D. Signed By: SUMA KING M.D. [facility] [place] FLUOROSCOPY IN OR/PAIN MGTon 01-20-2021 FLUOROSCOPY IN OR/PAIN MGT FLUOROSCOPY FOR NEEDLE GUIDANCE: Clinical Statement: Back pain FINDINGS: 49.2 seconds of fluoroscopy time was utilized by Dr. Vieira. 2 fluoroscopic spot images were acquired of the lumbar spine. Additional information can be found in Dr. Vieira' report. IMPRESSION: Fluoroscopy provided to Dr. Vieira. This report was electronically signed by Adrianna Barnes MD 01/20/2021 1:53 PM Reported By: ADRIANNA BARNES M.D. Signed By: ADRIANNA BARNES M.D. [facility] [place] FLUOROSCOPY IN OR/PAIN MGTon 11-04-2020 FLUOROSCOPY IN OR/PAIN MGT FLUOROSCOPY IN OR/PAIN MGT Ordering Physician: Lina Vieira DO 11/04/2020 7:33 AM FLUOROSCOPY AND RADIOGRAPHS UTILIZED IN PAIN MANAGEMENT Clinical Statement: Radiculopathy lumbar region FINDINGS: 12 second fluoroscopy time utilized. A total of 2 radiographs were obtained demonstrating needle placement at the lumbosacral junction region. Postoperative changes are noted. IMPRESSION: Documentation of fluoroscopy and radiographs utilized in pain management. Please see clinician's report for complete details. This report was electronically signed by Dano Ferguson MD 11/05/2020 11:16 AM Reported By: DANO FERGUSON M.D. Signed By: DANO FERGUSON M.D. [facility] FLUOROSCOPY IN OR/PAIN MGTon 10-13-2020 FLUOROSCOPY IN OR/PAIN MGT FLUOROSCOPY IN OR/PAIN MGT Ordering Physician: Lina Vieira DO 10/13/2020 7:43 AM FLUOROSCOPY IN OR/PAIN MANAGEMENT Clinical Statement: Lumbar region radiculopathy Comparison: None FINDINGS: Fluoroscopy was provided to Dr. Vieira who performed the procedure. 2 fluoroscopic images of the lumbar spine show a needle directed posteriorly at the L5-S1 level. 9.9 seconds of fluoroscopic time was utilized during the procedure. IMPRESSION: Report generated to document fluoroscopic time utilized in pain management. This report was electronically signed by Vinnie Carrizales MD 10/13/2020 10:47 AM Reported By: VINNIE CARRIZALES M.D. Signed By: VINNIE CARRIZALES M.D. Normal [facility] Urine Cultureon 10-07-2020 Bacteria identified Cx Nom (U) Specimen Desc: URINE Sp. Request/Comment: PRESRV Culture Result <10,000 CFU/ml Three or more organisms, no one type predominant, suggesting contamination during collection. Recollect if clinically indicated. Report Status 10/07/2020 FINAL [facility] VL VENOUS UNILATERAL LOWER E XT FOR DVTon 07-22-2018 VL VENOUS UNILATERAL LOWER EXT FOR DVT ORIGINAL VL VENOUS UNILATERAL LOWER EXT FOR DVT LATERALITY: Left CLINICAL STATEMENT: left leg pain and tenderness COMPARISON: None available TECHNIQUE: Duplex venous ultrasonography including color and spectral flow Doppler imaging was performed of the lower extremity, focusing on the deep venous system. FINDINGS: The common femoral, femoral, popliteal, gastrocnemius, posterior tibial, peroneal, and saphenous veins demonstrate wide patency, expected augmentation, and normal spectral waveforms. IMPRESSION: No evidence of deep venous thrombosis. I have personally reviewed the images of this examination and agree with the resident's findings and interpretation. Interpreted By: Juliet Deluca MD Preliminary Report By: Todd Sky DO Electronically Signed By: Juliet Deluca MD Dictated Date: 07/22/2018 4:53:16 PM Prelim Date: 07/22/2018 4:54:07 PM Sign Date: 07/22/2018 5:07:25 PM Normal [place] [facility] ([place]) .GFRon 07-10-2018 GFR 86 ml/min/1.73sqm Normal [facility] ([place]) Comment on above: Result Comment: GFR Population mean for , Non- Americans Ages 20-29 = 116 mL/min/1.73 sq.m. Ages 30-39 = 107 mL/min/1.73 sq.m. Ages 40-49 = 99 mL/min/1.73 sq.m. Ages 50-59 = 93 mL/min/1.73 sq.m. Ages 60-69 = 85 mL/min/1.73 sq.m. Ages 70+ = 75 mL/min/1.73 sq.m. Chronic Kidney Disease: Less than 60 mL/min/1.73 square meters End Stage Renal Disease: Less than 15 mL/min/1.73 square meters Performed By: #### C RE, GFR #### [address] [address] GFR Non- 71 ml/min/1.73sqm Normal [facility] ([place]) Comment on above: Result Comment: GFR Population mean for , Non- Americans Ages 20-29 = 116 mL/min/1.73 sq.m. Ages 30-39 = 107 mL/min/1.73 sq.m. Ages 40-49 = 99 mL/min/1.73 sq.m. Ages 50-59 = 93 mL/min/1.73 sq.m. Ages 60-69 = 85 mL/min/1.73 sq.m. Ages 70+ = 75 mL/min/1.73 sq.m. Chronic Kidney Disease: Less than 60 mL/min/1.73 square meters End Stage Renal Disease: Less than 15 mL/min/1.73 square meters Performed By: #### C RE, GFR #### [address] [address] CREon 07-10-2018 Creatinine [Mass/Vol] 0.82 mg/dL Normal 0.55-1.02 [facility] ([place]) Comment on above: Performed By: #### C RE, GFR #### [address] [address] Vital Signs Date Time Vital Sign Value Performing Clinician Britt cloud 05-20-2023 12:05-0400 Body temperature 96.1 [degF] Heaven GUEVARA Work Phone: [facility] 05-20-2023 12:05-0400 Body weight 75.7 kg Krislyn Aberegg PA Work Phone: [facility] 05-20-2023 12:05-0400 Diastolic blood pressure 50 mm[Hg] Krislyn Aberegg PA Work Phone: [facility] 05-20-2023 12:05-0400 Heart rate 70 /min Krislyn Aberegg PA Work Phone: [facility] 05-20-2023 12:05-0400 Respiratory rate 20 /min Krislyn Aberegg PA Work Phone: [facility] 05-20-2023 12:05-0400 SaO2% (BldA) [Mass fraction] 95 % Krislyn Aberegg PA Work Phone: [facility] 05-20-2023 12:05-0400 Systolic blood pressure 148 mm[Hg] Krislyn Aberegg PA Work Phone: [facility] 11-07-2022 14:40-0400 Body height 152.4 cm Lina Vieira DO Work Phone: [facility] 11-07-2022 14:40-0400 Body weight 73.94 kg Lina Vieira DO Work Phone: [facility] 11-07-2022 14:40-0400 Diastolic blood pressure 62 mm[Hg] Lina Vieira DO Work Phone: [facility] 11-07-2022 14:40-0400 Heart rate 85 /min Lina Vieira DO Work Phone: [facility] 11-07-2022 14:40-0400 Respiratory rate 18 /min Lina Vieira DO Work Phone: [facility] 11-07-2022 14:40-0400 SaO2% (BldA) [Mass fraction] 98 % Lina Vieira DO Work Phone: [facility] 11-07-2022 14:40-0400 Systolic blood pressure 113 mm[Hg] Lina Vieira DO Work Phone: [facility] 08-15-2022 14:51-0400 Body height 152.4 cm Rhonda Fredis MATERIAL ASSEMBLER.DRILL OPERATOR PNEUMATIC Work Phone: [facility] 08-15-2022 14:51-0400 Body weight 72.12 kg Rhonda [place] MATERIAL ASSEMBLER.DRILL OPERATOR PNEUMATIC Work Phone: [facility] 08-15-2022 14:51-0400 Diastolic blood pressure 71 mm[Hg] Rhonda [place] MATERIAL ASSEMBLER.DRILL OPERATOR PNEUMATIC Work Phone: [facility] 08-15-2022 14:51-0400 Heart rate 78 /min Rhonda Fredis MATERIAL ASSEMBLER.DRILL OPERATOR PNEUMATIC Work Phone: [facility] 08-15-2022 14:51-0400 Respiratory rate 19 /min Rhonda [place] MATERIAL ASSEMBLER.DRILL OPERATOR PNEUMATIC Work Phone: [facility] 08-15-2022 14:51-0400 SaO2% (BldA) [Mass fraction] 97 % Rhonda [place] MATERIAL ASSEMBLER.DRILL OPERATOR PNEUMATIC Work Phone: [facility] 08-15-2022 14:51-0400 Systolic blood pressure 148 mm[Hg] Rhonda Fredis MATERIAL ASSEMBLER.DRILL OPERATOR PNEUMATIC Work Phone: [facility] 05-17-2022 14:23-0400 Body height 155.4 cm Rhonda [place] MATERIAL ASSEMBLER.DRILL OPERATOR PNEUMATIC Work Phone: [facility] 05-17-2022 14:23-0400 Body weight 75.75 kg Rhonda [place] MATERIAL ASSEMBLER.DRILL OPERATOR PNEUMATIC Work Phone: [facility] 05-17-2022 14:23-0400 Diastolic blood pressure 68 mm[Hg] Rhonda [place] MATERIAL ASSEMBLER.DRILL OPERATOR PNEUMATIC Work Phone: [facility] 05-17-2022 14:23-0400 Heart rate 101 /min Rhonda Fredis MATERIAL ASSEMBLER.DRILL OPERATOR PNEUMATIC Work Phone: [facility] 05-17-2022 14:23-0400 Respiratory rate 19 /min Rhonda Fredis MATERIAL ASSEMBLER.DRILL OPERATOR PNEUMATIC Work Phone: [facility] 05-17-2022 14:23-0400 SaO2% (BldA) [Mass fraction] 95 % Rhonda Fredis MATERIAL ASSEMBLER.DRILL OPERATOR PNEUMATIC Work Phone: [facility] 05-17-2022 14:23-0400 Systolic blood pressure 138 mm[Hg] Rhonda Fredis MATERIAL ASSEMBLER.DRILL OPERATOR PNEUMATIC Work Phone: [facility] 02-15-2022 14:19-0500 Diastolic blood pressure 80 mm[Hg] Rhonda [place] MATERIAL ASSEMBLER.DRILL OPERATOR PNEUMATIC Work Phone: [facility] 02-15-2022 14:19-0500 Heart rate 105 /min Rhonda [place] MATERIAL ASSEMBLER.DRILL OPERATOR PNEUMATIC Work Phone: [facility] 02-15-2022 14:19-0500 SaO2% (BldA) [Mass fraction] 98 % [facility] [place] MATERIAL ASSEMBLER.DRILL OPERATOR PNEUMATIC Work Phone: [facility] 02-15-2022 14:19-0500 Systolic blood pressure 131 mm[Hg] Rhonda Fredis MATERIAL ASSEMBLER.DRILL OPERATOR PNEUMATIC Work Phone: [facility] 08-15-2021 15:13-0400 Body height 152.4 cm Rhonda Fredis MATERIAL ASSEMBLER.DRILL OPERATOR PNEUMATIC Work Phone: [facility] 08-15-2021 15:13-0400 Body weight 79.83 kg Rhonda [place] MATERIAL ASSEMBLER.DRILL OPERATOR PNEUMATIC Work Phone: [facility] 08-15-2021 15:13-0400 Diastolic blood pressure 79 mm[Hg] Rhonda Fredis MATERIAL ASSEMBLER.DRILL OPERATOR PNEUMATIC Work Phone: [facility] 08-15-2021 15:13-0400 Heart rate 79 /min Rhonda Fredis MATERIAL ASSEMBLER.DRILL OPERATOR PNEUMATIC Work Phone: [facility] 08-15-2021 15:13-0400 Respiratory rate 19 /min Rhonda Fredis MATERIAL ASSEMBLER.DRILL OPERATOR PNEUMATIC Work Phone: [facility] 08-15-2021 15:13-0400 SaO2% (BldA) [Mass fraction] 98 % Rhonda Madden MATERIAL ASSEMBLER.DRILL OPERATOR PNEUMATIC Work Phone: [facility] 08-15-2021 15:13-0400 Systolic blood pressure 168 mm[Hg] Rhonda Madden MATERIAL ASSEMBLER.DRILL OPERATOR PNEUMATIC Work Phone: [facility] Encounters Encounter Date Encounter Type Care Provider Facility Start: 05-20-2023 End: 05-20-2023 [facility] Facility:[facility] Start: 05-20-2023 End: 05-20-2023 Patient encounter procedure Heaven Crabtree PA Work Phone: [facility] Comment on above: Dysuria (Primary Dx) ; Chest pain, unspecified type Start: 02-16-2023 End: 02-16-2023 [facility] Facility:[facility] Start: 01-14-2023 Refill Lina Vee DO Work Phone: [facility] Comment on above: Refill Request Start: 12-16-2022 Refill Lina Vee DO Work Phone: [facility] Comment on above: Refill Request Start: 11-16-2022 End: 11-16-2022 ambulatory LINA VIEIRA Facility:[id number] Start: 11-11-2022 Telephone encounter Lina Vieira DO Work Phone: [facility] Start: 11-07-2022 End: 11-08-2022 ambulatory LINA VIEIRA Facility:[id number] Start: 11-07-2022 End: 11-07-2022 Patient encounter procedure Lina Vieira DO Work Phone: [facility] Comment on above: Lumbar sprain, seque la (Primary Dx); Strain of tendon of right rotator cuff, sequela; Spinal stenosis, lumbar region, without neurogenic claudication; Chronic bilateral low back pain with bilateral sciatica; Type 2 diabetes mellitus without complication, with long-term current use of insulin ([facility]) Start: 10-18-2022 Refill Rhonda Madden MATERIAL ASSEMBLER.DRILL OPERATOR PNEUMATIC Work Phone: [facility] Comment on above: Refill Request Start: 10-05-2022 Telephone encounter Ant Sharon rco MATERIAL ASSEMBLER.STOCK PREPARER Work Phone: [facility] Start: 10-04-2022 Telephone encounter Ant Sharon rco MATERIAL ASSEMBLER.STOCK PREPARER Work Phone: [facility] Start: 09-20-2022 Refill Rhonda [place] MATERIAL ASSEMBLER.DRILL OPERATOR PNEUMATIC Work Phone: [facility] Comment on above: Refill Request Start: 09-05-2022 End: 09-05-2022 ambulatory [facility] Facility:[facility] Start: 09-05-2022 End: 09-05-2022 Subsequent hospital visit by physician [facility] Work Phone: Radiology Start: 09-01-2022 Telephone encounter Rhonda Lynn eld MATERIAL ASSEMBLER.DRILL OPERATOR PNEUMATIC Work Phone: [facility] Comment on above: C-9 Status Start: 08-22-2022 Orders Only Rhonda [place] MATERIAL ASSEMBLER.DRILL OPERATOR PNEUMATIC Work Phone: [facility] Start: 08-22-2022 [facility] encounter [facility] Start: 08-22-2022 Telephone encounter Rhonda Lynn eld MATERIAL ASSEMBLER.DRILL OPERATOR PNEUMATIC Work Phone: Pain [facility] Comment on above: med pa xtampza approval Start: 08-16-2022 Patient encounter procedure [facility] Start: 08-15-2022 End: 08-16-2022 ambulatory [facility] Facility:[id number] Start: 08-15-2022 End: 08-15-2022 Office outpatient visit 25 minutes Rhonda Fredis MATERIAL ASSEMBLER.DRILL OPERATOR PNEUMATIC Work Phone: [facility] Comment on above: Lumbar sprain, seque la (Primary Dx); Spinal stenosis, lumbar region, without neurogenic claudication; Chronic bilateral low back pain with bilateral sciatica; High risk medication use Start: 05-17-2022 End: 05-18-2022 ambulatory [facility] Facility:[id number] Start: 05-17-2022 End: 05-17-2022 Office outpatient visit 25 minutes Rhonda Fredis MATERIAL ASSEMBLER.DRILL OPERATOR PNEUMATIC Work Phone: [facility] Comment on above: Spinal stenosis, lum bar region, without neurogenic claudication; Chronic bilateral low back pain with bilateral sciatica; Lumbago-sciatica due to displacement of lumbar intervertebral disc; Lumbar sprain, sequela; High risk medication use Start: 04-21-2022 Refill Rhonda [place] MATERIAL ASSEMBLER.DRILL OPERATOR PNEUMATIC Work Phone: [facility] Comment on above: Refill Request Start: 03-22-2022 Refill Rhonda Fredis MATERIAL ASSEMBLER.DRILL OPERATOR PNEUMATIC Work Phone: [facility] Comment on above: Refill Request Start: 02-16-2022 End: 02-16-2022 ambulatory LINA VIEIRA Facility:[id number] Start: 02-15-2022 End: 02-16-2022 ambulatory RHONDA MADDEN Facility:[id number] Start: 02-15-2022 End: 02-15-2022 Office outpatient visit 25 minutes Rhonda [place] MATERIAL ASSEMBLER.DRILL OPERATOR PNEUMATIC Work Phone: [facility] Comment on above: High risk medication use (Primary Dx); Lumbago-sciatica due to displacement of lumbar intervertebral disc; Spinal stenosis, lumbar region, without neurogenic claudication; Lumbar sprain, sequela; Chronic bilateral low back pain with bilateral sciatica Start: 01-16-2022 Refill Rhonda Fredis MATERIAL ASSEMBLER.DRILL OPERATOR PNEUMATIC Work Phone: [facility] Comment on above: Refill Request Start: 12-19-2021 Refill Rhonda [place] MATERIAL ASSEMBLER.DRILL OPERATOR PNEUMATIC Work Phone: [facility] Comment on above: Refill Request Start: 12-12-2021 Telephone encounter Lina Vieira DO Work Phone: [facility] Comment on above: Bwc (Worker's Comp) Returning Patient's Call Start: 12-09-2021 Telephone encounter Lina Vieira DO Work Phone: [facility] Comment on above: Patient Update Start: 11-15-2021 Telephone encounter Lina Vieira DO Work Phone: [facility] Comment on above: Regarding Procedure Start: 09-29-2022 Telephone encounter Lina Vieira DO Work Phone: [facility] Comment on above: Orders Start: 10-24-2021 Refill Rhonda Madden MATERIAL ASSEMBLER.DRILL OPERATOR PNEUMATIC Work Phone: [facility] Comment on above: Refill Request Start: 10-19-2021 Refill Rhonda Madden MATERIAL ASSEMBLER.DRILL OPERATOR PNEUMATIC Work Phone: [facility] Comment on above: Refill Request Start: 09-19-2021 Refill Rhonda Madden MATERIAL ASSEMBLER.DRILL OPERATOR PNEUMATIC Work Phone: [facility] Comment on above: Refill Request Start: 09-16-2021 Refill Rhonda Madden MATERIAL ASSEMBLER.DRILL OPERATOR PNEUMATIC Work Phone: [facility] Comment on above: Refill Request Start: 08-21-2021 Orders Only Rhonda Madden MATERIAL ASSEMBLER.DRILL OPERATOR PNEUMATIC Work Phone: [facility] Start: 08-15-2021 End: 08-15-2021 Office outpatient visit 25 minutes Rhonda Madden MATERIAL ASSEMBLER.DRILL OPERATOR PNEUMATIC Work Phone: [facility] Comment on above: Sprain of right shou lder, unspecified shoulder sprain type, sequela (Primary Dx); Lumbar sprain, sequela; Contusion of right scapula, sequela; Contusion of right forearm, sequela; Strain of tendon of right rotator cuff, sequela; Lumbosacral neuritis; Superior glenoid labrum lesion of right shoulder, sequela; Enlargement of sternoclavicular joint, right; Lumbago-sciatica due to displacement of lumbar intervertebral disc; Chronic bilateral low back pain with bilateral sciatica; Impingement syndrome of right shoulder; Spinal stenosis, lumbar region, without neurogenic claudication Start: 08-15-2021 Chart abstracting Rhonda pollard APRN.DRILL OPERATOR PNEUMATIC Work Phone: [facility] Start: 07-26-2021 Refill Roquemerrill Tovar Saima pereira DO Work Phone: [facility] Comment on above: Refill Request Procedures Date Procedure Procedure Detail Performing Clinician Start: 05-20-2023 Urnls dip stick/tabl et rgnt auto w/o microscopy Heaven GUEVARA Work Phone: Start: 09-05-2022 Us retroperitoneal r eal time w/image complete [facility] Provider Plan of Treatment Date Care Activity Detail Author Start: 03-24-2032 Urine microalbumin profile DTaP,Tdap,Td Vaccine (3 - Td or Tdap) [facility] Start: 11-08-2023 BP Controlled (<130/80) BP Controlle d (<130/80) [facility] Start: 10-07-2023 Influenza vaccination Influenz a Vaccine (Season Ended) [facility] Start: 02-05-2023 Behavioral Health Screening Behavioral Health Screening [facility] Start: 10-06-2022 Covid-19 Vaccine () Covid-19 Vaccine () [facility] Start: 10-06-2022 Influenza vaccination [facility] Start: 08-15-2022 End: 10-15-2022 TOXASSURE FLEX 23, URINE TOXASSURE FLEX 23, URINE Lab Routine High risk medication use Expected: 08/15/2022, Expires: 10/15/2022 [facility] Work Phone: Comment on above: Expected: 08/15/2022 , Expires: 10/15/2022 Start: 05-17-2022 End: 07-17-2022 TOXASSURE FLEX 23, URINE TOXASSURE FLEX 23, URINE Lab Routine High risk medication use Expected: 05/17/2022, Expires: 07/17/2022 [facility] Work Phone: Comment on above: Expected: 05/17/2022 , Expires: 07/17/2022 Start: 02-05-2022 DEPRESSION ASSESSMENT DEPRESSION ASS ESSMENT [facility] Start: 10-06-2021 Influenza vaccination INFLUENZA (#1) [facility] Start: 07-28-2021 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 [employer] GILES DISEASE VISIT ANNUAL PCP TEAM CHRONIC DISEASE VISIT [facility] Start: 03-24-2021 COVID-19 VACCINE (4 - Booster for Pfizer series) COVID-19 VACCINE (4 - Booster for Pfizer series) [facility] Start: 02-05-2021 DEPRESSION ASSESSMENT DEPRESSION ASS ESSMENT [facility] Start: 06-19-2019 Hemoglobin A1c measurement HbA1C [facility] Start: 06-19-2019 Hemoglobin A1c/Hemoglobin.total in Blood HBA1C [facility] Start: 2018 Hepatitis B Vaccine (1 of 3 - Risk 3-dose series) Hepatitis B Vaccine (1 of 3 - Risk 3-dose series) [facility] Start: 2018 RSV Vaccine (1 - 1-d ose 60+ series) RSV Vaccine (1 - 1-dose 60+ series) [facility] Start: 2008 SHINGRIX VACCINE (1 of 2) SHINGRIX VACCINE (1 of 2) [facility] Start: 10-10-2003 COLOGUARD (FIT-DNA) COLOGUARD (FIT-D NA) [facility] Start: 10-10-2003 Colonoscopy COLONOSCOPY [facility] Start: 10-10-2003 COLORECTAL CANCER SCREENING COLORECTAL CANCER SCREENING [facility] Start: 10-10-[address] COLONOGRAPHY [facility] Start: 10-10-2003 FECAL OCCULT BLOOD FECAL OCCULT BLOO D [facility] Start: 10-10-2003 Screening for malign ant neoplasm of colon [facility] Start: 10-10-2003 SIGMOIDOSCOPY SIGMOIDOSCOPY [facility] Start: 1998 Mammography [facility] Start: 1998 Screening for malign ant neoplasm of breast Mammogram Screening [facility] Start: 1988 HPV TESTING HPV TESTING [facility] Start: 1988 Screening for malign ant neoplasm of cervix HPV Testing [facility] Start: 1988 Zoledronic acid therapy ALPHA- 1 ANTITRYPSIN DEFICIENCY SCREENING [facility] Start: 10-10-1979 PAP TESTING PAP TESTING [facility] Start: 10-10-1979 Screening for malign ant neoplasm of cervix Pap Testing [facility] Start: 1977 Urine microalbumin profile [facility] Start: 1976 BP CONTROLLED (<130/80) BP CONTROLLE D (<130/80) [facility] Start: 1976 Hepatitis B surface antibody level LDL CHOLESTEROL [facility] Start: 1976 HEPATITIS C SCREENING HEPATITIS C [facility] Start: 1976 Hepatitis C screening Hepatitis C [place] Start: 1976 HIV SCREENING HIV SCREENING [facility] Start: 1976 HIV screening HIV Screening [facility] Start: 1976 SPIROMETRY SPIROMETRY [facility] Start: 1970 Adult depression screening assessment DEPRESSION SCREENING [facility] Start: 1968 3 comp foot exam completed DIABETIC FOOT EXAM [facility] Start: 1968 Diabetic foot examination Diabetic Foot Exam [facility] Start: 1968 Glaucoma screening Dilated Retinal E xam [facility] Start: 1968 Hepatitis B screening URINE ALBUMIN:CREATININE RATIO [facility] Start: 1968 Hepatitis C antibody , confirmatory test DILATED RETINAL EXAM [facility] Start: 1964 PNEUMOCOCCAL (1 - PCV) PNEUMOCOCCAL (1 - PCV) [facility] Start: 1964 Pneumococcal vaccination Pneum ococcal Vaccine (1 - PCV) [facility] Dstr nrolytc agnt parverteb fct addl crvcl/thora DSTR NROLYTC AGNT PARVERTEB FCT ADDL CRVCL/THORA Procedures Routine Lumbosacral neuritis Ordered: 08/15/2021 [facility] Work Phone: Comment on above: Ordered: 08/15/2021 Njx dx/ther agt pvrt facet jt crv/thrc 1 level NJX DX/THER AGT PVRT FACET JT CRV/THRC 1 LEVEL Procedures Routine Lumbosacral neuritis Ordered: 08/15/2021 [facility] Work Phone: Comment on above: Ordered: 08/15/2021 Njx dx/ther agt pvrt facet jt lmbr/sac 3+ level NJX DX/THER AGT PVRT FACET JT LMBR/SAC 3+ LEVEL Procedures Routine Lumbosacral neuritis Ordered: 08/15/2021 [facility] Work Phone: Comment on above: [facility] Immunizations Immunization Date Immunization Notes Care Provider Zaria jaime 11-23-2021 influenza virus vacc ine, unspecified formulation Rhonda Madden MATERIAL ASSEMBLER.DRILL OPERATOR PNEUMATIC Work Phone: [facility] 06-28-2020 COVID-19 original vaccine, age 12+ yr, monovalent (PFIZER-BIONTECH - PURPLE TOP) Rhonda Madden MATERIAL ASSEMBLER.DRILL OPERATOR PNEUMATIC Work Phone: [facility] 05-31-2020 COVID-19 original vaccine, age 12+ yr, monovalent (PFIZER-BIONTECH - PURPLE TOP) Rhonda Johnsfield MATERIAL ASSEMBLER.DRILL OPERATOR PNEUMATIC Work Phone: [facility] 05-13-2020 COVID-19 vaccine, ag e 12+ yr (PFIZER-BIONTECH - PURPLE TOP) Lina Vieira DO Work Phone: [facility] 04-22-2020 COVID-19 vaccine, ag e 12+ yr (PFIZER-BIONTECH - PURPLE TOP) Lina Vieira DO Work Phone: [facility] Payers Date Payer Category Payer Medicare [id number] 2018 Unknown ANTHLISA BLUE [facility] AND BLUE [facility] ANTHEM MEDIBLUE O [id number] 2018-Present [phone] [address] [place] [address] O [id number] 2008 Unknown [id number] 2008 Unknown [id number] 2008 Unknown [id number] Social History Date Type Detail Facility Start: 07-28-2020 End: 05-17-2022 Tobacco smoking status NHIS Ex-smoker [facility] History of tobacco use Cigarette Smoker [facility] Start: 07-28-2020 End: 08-15-2022 Cigarettes smoked current (pack per day) - Reported 1 [facility] Start: 07-28-2020 End: 05-17-2022 Tobacco use and exposure Smokeless tobacco non-user [facility] Start: 07-28-2020 End: 05-20-2023 Alcohol intake Current non-drinker of alcohol (finding) [facility] Start: 1960 Sex Assigned At Female [facility] Start: 08-05-2021 End: 12-23-2021 Exposure to SARS-CoV-2 (event) Not sure [facility] History of tobacco use Current smoker [facility] Start: 08-15-2022 End: 05-20-2023 Tobacco use panel [facility] National Score (1-10 0), lower number is lower risk 62 [facility] Start: 04-13-2021 Gender identity Identifies as female gender (finding) [facility] Start: 04-13-2021 Sexual orientation Heterosexual (bull kelly) [facility] Medical Equipment Procedure Code Equipment Code Equipment Origin al Text Equipment Identifier Dates [id number] - [id number] Start: 05-13-2014 Comment on above: Description: STENT URET 4.7FR 28CM DBL P GTL use 1 NEEDLE to inject MEDICATION subcutaneously once daily Start: 01-24-2022 Comment on above: use 1 NEEDLE to inject MEDICATION subcut aneously once daily Clinical Notes 05-12-2015 to 05-20-2023 Heaven Crabtree PA - 05/20/2023 12:24 PM EDTPatient Lina Corbin DO - 11/07/2022 2:30 PM EDTTelephone Encounter - Yoel Padgett APRN.STOCK PREPARER - 10/19/2022 8:08 PM EDT Note Date & Type Note Facility 05-20-2023 Note HNO ID: [id number] Author: HEAVEN CRABTREE PA Service: ? Author Type: Physician Kitchen Steward/Stewardess Type: Progress Notes Filed: 05/20/2023 12:28 Note Text: This note was created using [employer]. Subjective Estela Kenney is a 62 year old female. HPI 62-year-old female presents for UTI symptoms, chest pain, shortness of breath. Patient states that she started getting UTI symptoms 2 days ago. She has burning with urination, frequency and urgency. She states that on Sunday she was unable to walk due to feeling so fatigued and weak. She has had sepsis due to UTI in the past. She had a temp of 99.5 ?F last night. She states she feels a little bit better today, but still has some dysuria. She did take Azo which helped. She denies any abdominal pain or back pain. She states she overall just feels unwell. Patient also reports she has had a cough for few weeks. She states that she has some shortness of breath associated with the cough. Patient also reporting left-sided chest pain for the past week or so. She states that it comes and goes. She states that she is having the chest pain currently. She does have a history of COPD. She has been doing breathing treatments at home. PAST MEDICAL HISTORY Diagnosis Date Anxiety COPD [...] RMVL TUBE OVARY 02/05/2003 Hysterectomy, CURTIS BSO ALLERGIES Bee Venom Protein (Honey Bee) MEDICATIONS OZEMPIC 0.25 mg or 0.5 mg (2 mg/3 mL) pen INJECT 0.5 MG SUBCUTANEOUSLY ONCE WEEKLY oxyCODONE-acetaminophen (PERCOCET) 5-325 mg tablet Take 1 tablet by mouth three times a day as needed for pain for up to 30 days. oxyCODONE myristate (XTAMPZA ER) 13.5 mg CSpT Take 1 capsule by mouth every 12 hours for 30 days. Do not start before January 19, 2023. pregabalin (LYRICA) 100 mg capsule Take 1 capsule by mouth three times a day for 30 days. meloxicam (MOBIC) 7.5 mg tablet Take 1 tablet by mouth two times a day. With food. nystatin (MYCOSTATIN) cream Zinc Sulfate 25 mg [...] THIGH ONCE WITH ONSET OF ALLERGIC REACTION FREESTYLE JUSTICE 2 SENSOR kit apply 1 SENSOR to back OF UPPER ARM REMOVE AND REPLACE every 14 d... (REFER TO PRESCRIPTION NOTES). glimepiride (AMARYL) 4 mg tablet Take 4 mg by mouth once daily. lansoprazole (PREVACID) 30 mg capsule metFORMIN (GLUCOPHAGE) 1,000 mg tablet Take 1,000 mg by mouth twice daily. multivitamin-ferrous fumarate-folic acid (SPECTRAVITE ULTRA WOMEN) oxybutynin XL (DITROPAN XL) 5 mg 24 hr tablet Take 5 mg by mouth once daily. DROPLET PEN NEEDLE 32 gauge x 1/4 use 1 NEEDLE to inject MEDICATION subcutaneously once daily pravastatin (PRAVACHOL) 80 mg tablet Take 80 mg by mouth. VITAMIN B COMPLEX ORAL Take by mouth. Cetirizine (ZYRTEC) 10 mg cap Take 10 mg by mouth once daily. losartan (COZAAR) 50 mg tablet Take 100 mg by mouth once daily. insulin glargine (LANTUS SOLOSTAR U-100 INSULIN) 100 unit/mL (3 mL) Inject 40 Units subcutaneously daily at bedtime. DEXLANSOPRAZOLE (DEXILANT ORAL) Take by mouth. albuterol HFA (PROVENTIL HFA, VENTOLIN HFA) 90 mcg/actuation inhaler Inhale 2 Puffs as instructed. Albuterol Sulfate 0.63 mg/3 mL nebulizer solution Use 1 Ampule via nebulizer every 6 hours as needed. Cholecalciferol, Vitamin D3, 25 mcg (1,000 unit) cap Take 1,000 Units by mouth once daily. aspirin, enteric coated 81 mg EC tablet Take 81 mg by mouth once daily. MULTIVIT ANDMINERALS/FERROUS FUM (MULTI VITAMIN ORAL) Take 1 tablet by mouth. polyethylene glycol 3350 17 gram/dose powder Take by mouth 3 times a WEEK. HUMALOG KWIKPEN INSULIN 100 unit/mL Inject 4 Units subcutane (more content not included)... [facility] 05-20-2023 History of Presen t illness Narrative This note was created using AppEnsureter. Subjective Estela Kenney is a 62 year old female. HPI 62-year-old female presents for UTI symptoms, chest pain, shortness of breath. Patient states that she started getting UTI symptoms 2 days ago. She has burning with urination, frequency and urgency. She states that on Sunday she was unable to walk due to feeling so fatigued and weak. She has had sepsis due to UTI in the past. She had a temp of 99.5 F last night. She states she feels a little bit better today, but still has some dysuria. She did take Azo which helped. She denies any abdominal pain or back pain. She states she overall just feels unwell. Patient also reports she has had a cough for few weeks. She states that she has some shortness of breath associated with the cough. Patient also reporting left-sided chest pain for the past week or so. She states that it comes and goes. She states that she is having the chest pain currently. She does have a history of COPD. She has been doing breathing treatments at home. PAST MEDICAL HISTORY Diagnosis Date Anxiety COPD [...] RMVL TUBE OVARY 02/05/2003 Hysterectomy, CURTIS BSO ALLERGIES Bee Venom Protein (Honey Bee) MEDICATIONS OZEMPIC 0.25 mg or 0.5 mg (2 mg/3 mL) pen INJECT 0.5 MG SUBCUTANEOUSLY ONCE WEEKLY oxyCODONE-acetaminophen (PERCOCET) 5-325 mg tablet Take 1 tablet by mouth three times a day as needed for pain for up to 30 days. oxyCODONE myristate (XTAMPZA ER) 13.5 mg CSpT Take 1 capsule by mouth every 12 hours for 30 days. Do not start before January 19, 2023. pregabalin (LYRICA) 100 mg capsule Take 1 capsule by mouth three times a day for 30 days. meloxicam (MOBIC) 7.5 mg tablet Take 1 tablet by mouth two times a day. With food. nystatin (MYCOSTATIN) cream Zinc Sulfate 25 mg [...] THIGH ONCE WITH ONSET OF ALLERGIC REACTION FREESTYLE JUSTICE 2 SENSOR kit apply 1 SENSOR to back OF UPPER ARM REMOVE AND REPLACE every 14 d... (REFER TO PRESCRIPTION NOTES). glimepiride (AMARYL) 4 mg tablet Take 4 mg by mouth once daily. lansoprazole (PREVACID) 30 mg capsule metFORMIN (GLUCOPHAGE) 1,000 mg tablet Take 1,000 mg by mouth twice daily. multivitamin-ferrous fumarate-folic acid (SPECTRAVITE ULTRA WOMEN) oxybutynin XL (DITROPAN XL) 5 mg 24 hr tablet Take 5 mg by mouth once daily. DROPLET PEN NEEDLE 32 gauge x 1/4 use 1 NEEDLE to inject MEDICATION subcutaneously once daily pravastatin (PRAVACHOL) 80 mg tablet Take 80 mg by mouth. VITAMIN B COMPLEX ORAL Take by mouth. Cetirizine (ZYRTEC) 10 mg cap Take 10 mg by mouth once daily. losartan (COZAAR) 50 mg tablet Take 100 mg by mouth once daily. insulin glargine (LANTUS SOLOSTAR U-100 INSULIN) 100 unit/mL (3 mL) Inject 40 Units subcutaneously daily at bedtime. DEXLANSOPRAZOLE (DEXILANT ORAL) Take by mouth. albuterol HFA (PROVENTIL HFA, VENTOLIN HFA) 90 mcg/actuation inhaler Inhale 2 Puffs as instructed. Albuterol Sulfate 0.63 mg/3 mL nebulizer solution [...] Take by mouth 3 times a WEEK. HUMALOG KWIKPEN INSULIN 100 unit/mL Inject 4 Units subcutaneously daily with dinner. (Patient not taking: Reported on 05/20/2023) cyclobenzaprine (FLEXERIL) 10 mg tablet Take 1 tablet by mouth three times a day. (Patient not taking: Reported on 02/16/2023) famotidine (PEPCID) 20 mg tablet Take 20 mg by mouth twice daily as needed. (Patient not taking: Reported on 05/20/2023) fluticasone (FLONASE) 50 mcg/actuation nasal spray fluticasone propionate 50 mcg/actuation nasal spray,suspension instill 1 spray into each nostril twice a day Zinc Sulfate 25 mg zinc (110 mg) tab Take by mouth. budesonide-formoterol (SYMBICORT) 160-4.5 mcg/actuation inhaler Inhale 2 Puffs as instructed twice daily. (Patient not taking: Reported on 05/20/2023) FAMILY HISTORY Problem Relation Age of Onset [...] Topics Alcohol use: No Drug use: No Review of Systems Constitutional: Positive for fatigue and fever. Negative for chills. HENT: Negative for congestion, ear pain and sore throat. Respiratory: Positive for cough, chest tightness and shortness of breath. Cardiovascular: Positive for chest pain. Gastrointestinal: Negative for abdominal pain, diarrhea and vomiting. Genitourinary: Positive for dysuria, frequency and urgency. Neurological: Positive for weakness. Objective BP 148/50 Pulse 70 Temp (!) 35.6 C (96.1 F) Resp 20 Wt 75.7 kg (166 lb 14.2 oz) SpO2 95% BMI 32.59 kg/m Physical Exam Vitals and nursing note reviewed. Constitutional: General: She is not in acute distress. Appearance: Normal appearance. She is not toxic-appearing. HENT: Nose: Nose normal. Mouth/Throat: Mouth: Mucous membranes are moist. Eyes: Conjunctiva/sclera: Conjunctivae normal. Cardiovascular: Rate and Rhythm: Normal rate and regular rhythm. Pulmonary: Effort: Pulmonary effort is normal. Breath sounds: Wheezing present. No rhonchi or rales. Abdominal: General: Abdomen is flat. Palpations: Abdomen is soft. Tenderness: There is no abdominal tenderness. Neurological: Mental Status: She is alert. Assessment and Plan ASSESSMENT/PLAN: 1. Dysuria - ICD9: 788.1, ICD10: R30.0 (primary diagnosis) acute - UA positive for jackie esterase and nitrates - Patient education for prevention given - UA DIP, URINE (POC) - No antibiotic, patient sent to ER. 2. Chest pain, unspecified type - ICD9: 786.50, ICD10: R07.9 -Patient reports left-sided chest pain. Discussed limitations of express care, unable to rule out ACS or other acute cardiopulmonary process at this time. No XR available today either. -Recommended evaluation in the emergency room for chest pain and shortness of breath. -UA did reveal UTI. However, patient going to ER, so will defer treatment to them. Diagnosis and treatment plan were discussed and questions were answered to the patient's satisfaction. Pt acknowledged understanding of concepts and follow up plan. Specific signs and symptoms that would indicate the need for higher level of care were discussed in detail warranting prompt ER evaluation. ISMAEL Hess documented in this encounter [facility] 02-16-2023 Note HNO ID: [id number] Author: NITHYA ZUNIGA APRN.DUNIA Service: ? Author Type: Nurse Practitioner Type: Progress Notes Filed: 02/16/2023 14:00 Note Text: Patient came in with complaints of a fall on Sunday. Upon assessing did uncover patient did hit her head on the bedside table. Patient says she has had a dull headache ever since. Says it has not gone away. At this time patient is being referred to the emergency room for full evaluation due to headache and head injury. Patient's will take her. [facility] 11-07-2022 Note HNO ID: [id number] Author: Lina Vieira DO Service: ? Author Type: Physician Type: Progress Notes Filed: 11/11/2022 9:43 AM Note Text: Summary: Pain Management follow-up DATE: November 07, 2022 claim # [id number] DOI: 03/09/2008 Allowed diagnosis: S43.401A, S33.5XXA, S40.011A, S50.11XA, S30.0XA, S46.011A, M54.17, S43.431A, M25.811, M51.27, M75.41, M19.077, M48.061 Chief Complaint: Lower back ___ History of Present Illness: Estela Kenney is a 62 year old female being seen at [facility] for a evaluation and/or management of their chronic pain. The patient was last seen in the office on 08/15/2022 by Rhonda Madden NP, and the plan of care [...] (htn) Sister other (more content not included)... [facility] 11-07-2022 Instructions Lina Vieira DO - 11/07/2022 [...] transfer of care to Dr. Gold in [place], [place] documented in this encounter [facility] 11-07-2022 History of Presen t illness Narrative Summary: Pain Management follow-up DATE: November 07, 2022 claim # [id number] DOI: 03/09/2008 Allowed diagnosis: S43.401A, S33.5XXA, S40.011A, S50.11XA, S30.0XA, S46.011A, M54.17, S43.431A, M25.811, M51.27, M75.41, M19.077, M48.061 Chief Complaint: Lower back ___ History of Present Illness: Estela Kenney is a 62 year old female being seen at [facility] for a evaluation and/or management of their chronic pain. The patient was last seen in the office on 08/15/2022 by Rhonda Madden NP, and the plan of care [...] mg by mouth twice daily as needed. [employer] JUSTICE 2 SENSOR kit apply 1 SENSOR [...] daily. DROPLET PEN NEEDLE 32 gauge x 1/4 use 1 NEEDLE to inject MEDICATION subcutaneously [...] for this encounter was entered by Vijaya Matthews, medical records technician for Dr. Lina Vieira on November 07, [...] November 07, 2022. documented in this encounter [facility] 10-19-2022 Miscellaneous Notes The following approved [...] Last UDS: No results found for: [facility] @FLOW([id number])@ No results found for: SUMM No results found for: SUMMAR Please review and advise. Rita Ayala RN documented in this encounter [facility] 10-05-2022 Miscellaneous Notes Summary: Health Maintenance Review Items addressed in this encounter: Health Maintenance Review Able to close encounter. Candace Ely MA October 05, 2022 6:43 AM 6:43 AM documented in this encounter [facility] 10-04-2022 Miscellaneous Notes Summary: Follow up Appt changed Items addressed in this encounter: Health Maintenance Review Follow up appt changed Able to close encounter. Candace Ely MA October 04, 2022 2:49 PM 2:49 PM documented in this encounter [facility] 09-20-2022 Miscellaneous Notes The following approved medication requests have been transmitted electronically. Requested Prescriptions Signed Prescriptions Disp Refills cyclobenzaprine (FLEXERIL) 10 mg tablet 90 tablet 0 Sig: Take 1 tablet by mouth three times daily. Authorizing Provider: RHONDA MADDEN meloxicam (MOBIC) 7.5 mg tablet 60 tablet 0 Sig: Take 1 tablet by mouth twice daily. With food. Authorizing Provider: RHONDA MADDEN oxyCODONE myristate (XTAMPZA ER) 13.5 mg CSpT 60 Each 0 Sig: Take 1 capsule by mouth every 12 hours for 30 days. Do not start before September 21, 2022. Authorizing Provider: RHONDA MADDEN oxyCODONE-acetaminophen (PERCOCET) 5-325 mg tablet 90 tablet 0 Sig: Take 1 tablet by mouth three times daily as needed for pain for up to 30 days. Do not start before September 21, 2022. Authorizing Provider: RHONDA MADDEN pregabalin (LYRICA) 100 mg capsule 90 capsule 0 Sig: Take 1 capsule by mouth three times daily for 30 days. Do not start before September 21, 2022. Authorizing Provider: RHONDA MADDEN APRN.DRILL OPERATOR PNEUMATIC Patient phones requesting refills as follows: Requested [...] Last UDS: No results found for: [facility] @FLOW([id number])@ No results found for: SUMM No results found for: SUMMAR Please review and advise. Rita Ayala RN documented in this encounter [facility] 09-05-2022 Note HNO ID: [id number] Author: Angeles Perez RDMS Service: ? Author Type: Substation Design Draftsperson Type: Progress Notes Filed: 09/05/2022 2:14 PM [...] PERIPHERAL IV DATA: Not applicable SIGNED BY: Angeles Perez RDMS RVT September 05, 2022 2:14 PM [facility] 09-05-2022 History of Presen t illness [...] PERIPHERAL IV DATA: Not applicable SIGNED BY: Angeles Perez RDMS RVT September 05, 2022 2:14 PM documented in this encounter [facility] 09-01-2022 Miscellaneous Notes I sent an e-mail regarding the status of the C-9 for left L3-S1 SNRB. Graciela September 01, 2022 11:00 AM documented in this encounter [facility] 08-22-2022 Miscellaneous Notes Xtampza er approved through [facility] Approved 08/22/22-08/23/23 I indexed approval letter Keri Aguiar MA August 22, 2022 5:18 PM documented in this encounter [facility] 08-22-2022 Miscellaneous Notes Xtampza er pa sent to [facility] through [facility] with 2 ov notes,soapp,uds, and contract. Keri Aguiar MA August 22, 2022 3:50 PM documented in this encounter [facility] 08-15-2022 Note HNO ID: [id number] Author: Rhonda Madden APRN.DRILL OPERATOR PNEUMATIC Service: ? Author Type: Clinical Nurse Specialist Type: Progress Notes Filed: 08/15/2022 3:37 PM Note Text: SUBJECTIVE: Estela Kenney presents to [facility] for a follow-up appointment for back pain [facility] Last seen by me on 05/17/22 [...] left L3-S1 SNRT BLK 75% relief Pain level:10 Denies any ED visits or hospitalizations since [...] bilaterally.Negative Fabere sign bilaterally ASSESSMENT: claim # [id number] DOI: 03/09/2008 Allowed diagnosis: S43.401A, S33.5XXA, S40.011A, [...] consistent UDS re (more content not included)... [facility] 08-15-2022 Instructions Rhonda Madden APRN.DRILL OPERATOR PNEUMATIC - 08/15/2022 3:26 PM EDT Continue Flexeril [...] in 3 months documented in this encounter [facility] 08-15-2022 History of Presen t illness Narrative SUBJECTIVE: Estela Kenney presents to [facility] for a follow-up appointment for back pain [facility] Last seen by me on 05/17/22 [...] left L3-S1 SNRT BLK 75% relief Pain level:410 Denies any ED visits or hospitalizations since [...] bilaterally.Negative Fabere sign bilaterally ASSESSMENT: claim # [id number] DOI: 03/09/2008 Allowed diagnosis: S43.401A, S33.5XXA, S40.011A, [...] agreement with the above and verbalized understanding. Rhonda Madden APRN.CNS August 15, 2022 documented in this encounter [facility] 05-17-2022 Note HNO ID: [id number] Author: Rhonda Madden APRN.CNS Service: ? Author Type: Clinical Nurse Specialist Type: Progress Notes Filed: 05/17/2022 2:41 PM Note Text: SUBJECTIVE: Estela Kenney presents to [facility] for a follow-up appointment for back pain [facility] Last seen by tori dumont 02/15/22 [...] daughter Psych: Mood and affect appropriate. Skin: [place], warm, and dry Pulm: no conversational shortness [...] Negative Fabere sign bilaterally ASSESSMENT: claim # [id number] DOI: 03/09/2008 Allowed diagnosis: S43.401A, S33.5XXA, S40.011A, S50.11XA, S30.0XA, S46.011A, M54.17, S43.431A, M25.811, M51.27, M75.41, M19.077, M48.061 (M48.061) Spinal stenosis, lumbar region, without neurogenic claudication (M54.42, M54.41, G89.29) Chronic bilateral low back pain with bilateral sciatica (M51.27) Lumbago-sciatica due to displacement of lumbar intervertebral disc (S33.5XXS) Lumbar sprain, sequela (Z79.899) High risk medication use (more content not included)... [facility] 05-17-2022 Instructions Rhonda Madden APRN.DRILL OPERATOR PNEUMATIC - 05/17/2022 2:31 PM EDT Continue Flexeril PRN Continue Xtampza and percocet These medications helps patient perform ADL, interact with family and friends.No misuse or aberrant behaviors detected. OAARS reviewed and consistent UDS reviewed and consistent [facility] C9 and order UDS Continue lyrica 100mg TID Continue Mobic Followup in 3 months in office documented in this encounter [facility] 05-17-2022 History of Presen t illness Narrative SUBJECTIVE: Estela Kenney presents to [facility] for a follow-up appointment for back pain [facility] Last seen by tori dumont 02/15/22 [...] daughter Psych: Mood and affect appropriate. Skin: [place], warm, and dry Pulm: no conversational shortness [...] Negative Fabere sign bilaterally ASSESSMENT: claim # [id number] DOI: 03/09/2008 Allowed diagnosis: S43.401A, S33.5XXA, S40.011A, [...] agreement with the above and verbalized understanding. Rhonda Madden APRN.CNS May 17, 2022 documented in this encounter [facility] 04-23-2022 Miscellaneous Notes The following approved medication requests have been transmitted electronically. Requested Prescriptions Signed Prescriptions Disp Refills oxyCODONE myristate (XTAMPZA ER) 13.5 mg CSpT 60 Each 0 Sig: Take 13.5 mg by mouth every 12 hours for 30 days. Authorizing Provider: RHONDA MADDEN oxyCODONE-acetaminophen (PERCOCET) 5-325 mg tablet 90 tablet 0 Sig: Take 1 tablet by mouth three times daily as needed for pain for up to 30 days. Do not start before April 25, 2022. Authorizing Provider: RHONDA MADDEN pregabalin (LYRICA) 100 mg capsule 90 capsule 0 Sig: Take 1 capsule by mouth three times daily for 30 days. Do not start before April 25, 2022. Authorizing Provider: RHONDA MADDEN APRN.CNS Patient phones requesting refills as [...] Last UDS: No results found for: [facility] @FLOW([id number])@ No results found for: [facility]M No results found for: SUMMAR Please review and advise. Rita Ayala RN documented in this encounter [facility] 03-23-2022 Miscellaneous Notes The following approved medication requests have been transmitted electronically. Requested Prescriptions Signed Prescriptions Disp Refills oxyCODONE myristate (XTAMPZA ER) 13.5 mg CSpT 60 Each 0 Sig: Take 13.5 mg by mouth every 12 hours for 30 days. Authorizing Provider: RHONDA MADDEN oxyCODONE-acetaminophen (PERCOCET) 5-325 mg tablet 90 tablet 0 Sig: Take 1 tablet by mouth three times daily as needed for pain for up to 30 days. Do not start before March 26, 2022. Authorizing Provider: RHONDA MADDEN pregabalin (LYRICA) 100 mg capsule 90 capsule 0 Sig: Take 1 capsule by mouth three times daily for 30 days. Do not start before March 26, 2022. Authorizing Provider: RHONDA MADDEN APRN.DRILL OPERATOR PNEUMATIC Patient phones requesting refills as follows: Requested [...] Last UDS: No results found for: [facility] @FLOW([id number])@ No results found for: SUMM No results found for: SUMMAR Please review and advise. Elizabeth Ray RN documented in this encounter [facility] 02-15-2022 Note HNO ID: [id number] Author: Rhonda Madden APRN.DRILL OPERATOR PNEUMATIC Service: ? Author Type: Clinical Nurse Specialist Type: Progress Notes Filed: 02/15/2022 3:34 PM Note Text: SUBJECTIVE: Estela Kenney presents to [facility] for a follow-up appointment for back pain [facility] Last seen by me on 11/15/21 [...] Negative Fabere sign bilaterally ASSESSMENT: claim # [id number] DOI: 03/09/2008 Allowed diagnosis: S43.401A, S33.5XXA, S40.011A, [...] agreement with the above and verbalized understanding. Rhonda Madden APRN.CNS February 15, 2022 [facility] 02-15-2022 Instructions Rhonda Madden APRN.CNS - 02/15/2022 3:04 PM EST Continue Flexeril [...] months in office documented in this encounter [facility] 02-15-2022 History of Presen t illness Narrative SUBJECTIVE: Estela M Pablito presents to [facility] for a follow-up appointment for back pain [facility] Last seen by me on 11/15/21 [...] Negative Fabere sign bilaterally ASSESSMENT: claim # [id number] DOI: 03/09/2008 Allowed diagnosis: S43.401A, S33.5XXA, S40.011A, [...] agreement with the above and verbalized understanding. Rhonda Madden APRN.CNS February 15, 2022 documented in this encounter [facility] 01-16-2022 Miscellaneous Notes The following approved medication requests have been transmitted electronically. Requested Prescriptions Signed Prescriptions Disp Refills oxyCODONE myristate (XTAMPZA ER) 13.5 mg CSpT 60 Each 0 Sig: Take 13.5 mg by mouth every 12 hours for 30 days. Do not start before January 18, 2022. Authorizing Provider: RHONDA MADDEN oxyCODONE-acetaminophen (PERCOCET) 5-325 mg tablet 90 tablet 0 Sig: Take 1 tablet by mouth three times daily as needed for pain for up to 30 days. Do not start before January 25, 2022. Authorizing Provider: RHONDA MADDEN pregabalin (LYRICA) 100 mg capsule 90 capsule 0 Sig: Take 1 capsule by mouth three times daily for 30 days. Do not start before January 25, 2022. Authorizing Provider: RHONDA MADDEN APRN.DRILL OPERATOR PNEUMATIC Patient phones requesting refills as follows: Requested [...] Rita Ayala RN documented in this encounter [facility] 12-19-2021 Miscellaneous Notes The following approved medication requests have been transmitted electronically. Requested Prescriptions Signed Prescriptions Disp Refills oxyCODONE myristate (XTAMPZA ER) 13.5 mg CSpT 60 Each 0 Sig: Take 13.5 mg by mouth every 12 hours for 30 days. Authorizing Provider: RHONDA MADDEN oxyCODONE-acetaminophen (PERCOCET) 5-325 mg tablet 90 tablet 0 Sig: Take 1 tablet by mouth three times daily as needed for pain for up to 30 days. Do not start before December 26, 2021. Authorizing Provider: RHONDA MADDEN pregabalin (LYRICA) 100 mg capsule 90 capsule 0 Sig: Take 1 capsule by mouth three times daily for 30 days. Do not start before December 26, 2021. Authorizing Provider: RHONDA MADDEN cyclobenzaprine (FLEXERIL) 10 mg tablet 90 tablet 0 Sig: Take 1 tablet by mouth three times daily. Authorizing Provider: RHONDA MADDEN APRN.DRILL OPERATOR PNEUMATIC Patient phones requesting refills as follows: Requested [...] three times daily. Please review and advise. Angeles Nguyen RN documented in this encounter [facility] 12-12-2021 Miscellaneous Notes I left a message to reschedule her procedure. Graciela December 12, 2021 3:58 PM documented in this encounter [facility] 12-12-2021 Miscellaneous Notes I spoke with Tory at [facility] regarding changing the SNRB from Right sided to the left side. She gave a verbal authorization to change the sides. She will fax that to me once it has been processed. Graciela Dhaliwal December 12, 2021 2:01 PM documented in this encounter [facility] 12-12-2021 Miscellaneous Notes Pt notified of [...] 12-15-21; she has been referred to an tar leveler with scheduled appt on 01-05-22. Please advise if change in injection POC. Thank you. Kristyn Edwards RN documented in this encounter [facility] 11-15-[address] Genaro I received approval for right sided SNRB L3-S1. Please build a case for that to be scheduled Dec 15 @ 1:30. Thanks, Graciela November 15, 2021 11:17 AM documented in this encounter [facility] 10-24-2021 Miscellaneous Notes The following approved medication requests have been transmitted electronically. Requested Prescriptions Signed Prescriptions Disp Refills meloxicam (MOBIC) 7.5 mg tablet 60 tablet 0 Sig: Take 1 tablet by mouth twice daily. With food. Authorizing Provider: RHONDA MADDEN APRN.DRILL OPERATOR PNEUMATIC Patient phones requesting refills as follows: Requested Prescriptions Pending Prescriptions Disp Refills meloxicam (MOBIC) 7.5 mg tablet 60 tablet 0 Sig: Take 1 tablet by mouth twice daily. With food. Please review and advise. Angeles Nguyen RN documented in this encounter [facility] 10-19-2021 Miscellaneous Notes The following approved medication requests have been transmitted electronically. Requested Prescriptions Signed Prescriptions Disp Refills cyclobenzaprine (FLEXERIL) 10 mg tablet 90 tablet 0 Sig: Take 1 tablet by mouth three times daily. Authorizing Provider: RHONDA MADDEN pregabalin (LYRICA) 100 mg capsule 90 capsule 0 Sig: Take 1 capsule by mouth three times daily for 30 days. Do not start before October 26, 2021. Authorizing Provider: RHONDA MADDEN oxyCODONE-acetaminophen (PERCOCET) 5-325 mg tablet 90 tablet 0 Sig: Take 1 tablet by mouth three times daily as needed for pain for up to 30 days. Do not start before October 27, 2021. Authorizing Provider: RHONDA MADDEN oxyCODONE myristate (XTAMPZA ER) 13.5 mg CSpT 60 Each 0 Sig: Take 13.5 mg by mouth every 12 hours for 30 days. Do not start before October 20, 2021. Authorizing Provider: RHONDA MADDEN APRN.CNS Patient phones requesting refills as [...] Rita Ayala RN documented in this encounter [facility] 09-19-2021 Miscellaneous Notes The following approved medication requests have been transmitted electronically. Requested Prescriptions Signed Prescriptions Disp Refills meloxicam (MOBIC) 7.5 mg tablet 60 tablet 0 Sig: Take 1 tablet by mouth twice daily. With food. Authorizing Provider: RHONDA MADDEN APRN.[facility]RI[facility] OPERATOR [facility]UMAT[facility] Patient phones requesting refills as follows: Requested Prescriptions Pending Prescriptions Disp Refills meloxicam (MOBIC) 7.5 mg tablet 60 tablet 0 Sig: Take 1 tablet by mouth twice daily. With food. Please review and advise. Angeles Nguyen RN documented in this encounter [facility] 09-19-2021 Miscellaneous Notes The following approved medication requests have been transmitted electronically. Requested Prescriptions Signed Prescriptions Disp Refills pregabalin (LYRICA) 100 mg capsule 90 capsule 0 Sig: Take 1 capsule by mouth three times daily for 30 days. Do not start before September 26, 2021. Authorizing Provider: RHONDA MADDEN oxyCODONE-acetaminophen (PERCOCET) 5-325 mg tablet 90 tablet 0 Sig: Take 1 tablet by mouth three times daily as needed for pain for up to 30 days. Do not start before September 27, 2021. Authorizing Provider: RHONDA MADDEN oxyCODONE myristate (XTAMPZA ER) 13.5 mg CSpT 60 Each 0 Sig: Take 13.5 mg by mouth every 12 hours for 30 days. Do not start before September 20, 2021. Authorizing Provider: RHONDA MADDEN cyclobenzaprine (FLEXERIL) 10 mg tablet 90 tablet 0 Sig: Take 1 tablet by mouth three times daily. Authorizing Provider: RHONDA MADDEN APRN.DRILL OPERATOR PNEUMATIC Patient phones requesting refills as follows: Requested [...] Karena Guajardo RN documented in this encounter [facility] 08-15-2021 Instructions Rhonda Madden APRN.CNS - 08/15/2021 3:35 PM EDT Continue Flexeril [...] months in office documented in this encounter [facility] 08-15-2021 History of Presen t illness Narrative Patient was last seen by Dr. Vieira on 05/16/2021 for back pain. [facility] Last procedure: 02/24/2021 Right SNRT BLK [...] UDS. 9) Followup in 3 months with [facility]. Pain level:4/10 Denies any ED visits or [...] bilaterally, Negative Fabere sign bilaterally claim # [id number] DOI: 03/09/2008 Allowed diagnosis: S43.401A, S33.5XXA, S40.011A, S50.11XA, S30.0XA, S46.011A, M54.17, S43.431A, M25.811, M51.27, M75.41, M19.077, M48.061 documented in this encounter [facility] 07-26-2021 Miscellaneous Notes Patient phones requesting [...] Rita Ayala RN documented in this encounter [facility] 07-28-2020 History of Past i llness Narrative Problem Noted Date Resolved Date Tremors of nervous system 07/28/20202022 Gastroesophageal reflux disease 05/12/2015 05/12/2015 Dysphagia 05/12/2015 05/12/2015 Smoking 04/14/2014 05/17/2022 documented as of this encounter (statuses as of 05/18/2022) [facility] History of Past illness Narrative* Problem Noted Date Diagnosed Date Resolved Date Tremors of nervous system 07/28/2020 Gastroesophageal reflux disease 05/12/2015 05/12/2015 Dysphagia 05/12/2015 05/12/2015 Smoking 04/14/2014 05/17/2022 documented as of this encounter (statuses as of 08/16/2022) [facility] History of Past illness Narrative* Problem Noted Date Diagnosed Date Resolved Date Tremors of nervous system 07/28/2020 Gastroesophageal reflux disease 05/12/2015 05/12/2015 Dysphagia 05/12/2015 05/12/2015 Smoking 04/14/2014 05/17/2022 documented as of this encounter (statuses as of 08/17/2022) [facility] History of Past illness Narrative* Problem Noted Date Diagnosed Date Resolved Date Tremors of nervous system 07/28/2020 Gastroesophageal reflux disease 05/12/2015 05/12/2015 Dysphagia 05/12/2015 05/12/2015 Smoking 04/14/2014 05/17/2022 documented as of this encounter (statuses as of 08/22/2022) [facility] History of Past illness Narrative* Problem Noted Date Diagnosed Date Resolved Date Tremors of nervous system 07/28/2020 Gastroesophageal reflux disease 05/12/2015 05/12/2015 Dysphagia 05/12/2015 05/12/2015 Smoking 04/14/2014 05/17/2022 documented as of this encounter (statuses as of 08/23/2022) [address]23-2021 History of Past illness Narrative* Problem Noted Date Diagnosed Date Resolved Date Tremors of nervous system 07/28/2020 Gastroesophageal reflux disease 05/12/2015 05/12/2015 Dysphagia 05/12/2015 05/12/2015 Smoking 04/14/2014 05/17/2022 documented as of this encounter (statuses as of 08/23/2022) [address]23-2021 History of Past illness Narrative* Problem Noted Date Diagnosed Date Resolved Date Tremors of nervous system 07/28/2020 Gastroesophageal reflux disease 05/12/2015 05/12/2015 Dysphagia 05/12/2015 05/12/2015 Smoking 04/14/2014 05/17/2022 documented as of this encounter (statuses as of 09/01/2022) [address]23-2021 History of Past illness Narrative* Problem Noted Date Diagnosed Date Resolved Date Tremors of nervous system 07/28/2020 Gastroesophageal reflux disease 05/12/2015 05/12/2015 Dysphagia 05/12/2015 05/12/2015 Smoking 04/14/2014 05/17/2022 documented as of this encounter (statuses as of 09/21/2022) [address]23-2021 History of Past illness Narrative* Problem Noted Date Diagnosed Date Resolved Date Tremors of nervous system 07/28/2020 Gastroesophageal reflux disease 05/12/2015 05/12/2015 Dysphagia 05/12/2015 05/12/2015 Smoking 04/14/2014 05/17/2022 documented as of this encounter (statuses as of 10/04/2022) [address]23-2021 History of Past illness Narrative* Problem Noted Date Diagnosed Date Resolved Date Tremors of nervous system 07/28/2020 Gastroesophageal reflux disease 05/12/2015 05/12/2015 Dysphagia 05/12/2015 05/12/2015 Smoking 04/14/2014 05/17/2022 documented as of this encounter (statuses as of 10/05/2022) [address]23-2021 History of Past illness Narrative* Problem Noted Date Diagnosed Date Resolved Date Tremors of nervous system 07/28/2020 Gastroesophageal reflux disease 05/12/2015 05/12/2015 Dysphagia 05/12/2015 05/12/2015 Smoking 04/14/2014 05/17/2022 documented as of this encounter (statuses as of 10/20/2022) [address]23-2021 History of Past illness Narrative* Problem Noted Date Diagnosed Date Resolved Date Tremors of nervous system 07/28/2020 Gastroesophageal reflux disease 05/12/2015 05/12/2015 Dysphagia 05/12/2015 05/12/2015 Smoking 04/14/2014 05/17/2022 documented as of this encounter (statuses as of 11/11/2022) [facility] History of Past illness Narrative* Problem Noted Date Diagnosed Date Resolved Date Tremors of nervous system 07/28/2020 Gastroesophageal reflux disease 05/12/2015 05/12/2015 Dysphagia 05/12/2015 05/12/2015 Smoking 04/14/2014 05/17/2022 documented as of this encounter (statuses as of 11/11/2022) [address]23-2021 History of Past illness Narrative* Problem Noted Date Diagnosed Date Resolved Date Tremors of nervous system 07/28/2020 Gastroesophageal reflux disease 05/12/2015 05/12/2015 Dysphagia 05/12/2015 05/12/2015 Smoking 04/14/2014 05/17/2022 documented as of this encounter (statuses as of 12/10/2022) [address]23-2021 History of Past illness Narrative* Problem Noted Date Diagnosed Date Resolved Date Tremors of nervous system 07/28/2020 Gastroesophageal reflux disease 05/12/2015 05/12/2015 Dysphagia 05/12/2015 05/12/2015 Smoking 04/14/2014 05/17/2022 documented as of this encounter (statuses as of 12/18/2022) [address]23-2021 History of Past illness Narrative* Problem Noted Date Diagnosed Date Resolved Date Tremors of nervous system 07/28/2020 Gastroesophageal reflux disease 05/12/2015 05/12/2015 Dysphagia 05/12/2015 05/12/2015 Smoking 04/14/2014 05/17/2022 documented as of this encounter (statuses as of 01/15/2023) [facility] History of Past illness Narrative* Problem Noted Date Diagnosed Date Resolved Date Tremors of nervous system 07/28/2020 Gastroesophageal reflux disease 05/12/2015 05/12/2015 Dysphagia 05/12/2015 05/12/2015 Smoking 04/14/2014 05/17/2022 documented as of this encounter (statuses as of 05/20/2023) [facility] History of Past illness Narrative* Problem Noted Date Resolved Date Gastroesophageal reflux disease 05/12/2015 05/12/2015 Dysphagia 05/12/2015 05/12/2015 documented as of this encounter (statuses as of 07/27/2021) [facility] History of Past illness Narrative* Problem Noted Date Resolved Date Gastroesophageal reflux disease 05/12/2015 05/12/2015 Dysphagia 05/12/2015 05/12/2015 documented as of this encounter (statuses as of 08/15/2021) [facility] History of Past illness Narrative* Problem Noted Date Resolved Date Gastroesophageal reflux disease 05/12/2015 05/12/2015 Dysphagia 05/12/2015 05/12/2015 documented as of this encounter (statuses as of 08/15/2021) [facility] History of Past illness Narrative* Problem Noted Date Resolved Date Gastroesophageal reflux disease 05/12/2015 05/12/2015 Dysphagia 05/12/2015 05/12/2015 documented as of this encounter (statuses as of 08/21/2021) [facility] History of Past illness Narrative* Problem Noted Date Resolved Date Gastroesophageal reflux disease 05/12/2015 05/12/2015 Dysphagia 05/12/2015 05/12/2015 documented as of this encounter (statuses as of 09/19/2021) [facility] History of Past illness Narrative* Problem Noted Date Resolved Date Gastroesophageal reflux disease 05/12/2015 05/12/2015 Dysphagia 05/12/2015 05/12/2015 documented as of this encounter (statuses as of 09/19/2021) [facility] History of Past illness Narrative* Problem Noted Date Resolved Date Gastroesophageal reflux disease 05/12/2015 05/12/2015 Dysphagia 05/12/2015 05/12/2015 documented as of this encounter (statuses as of 10/19/2021) [address]06-2016 History of Past illness Narrative* Problem Noted Date Resolved Date Gastroesophageal reflux disease 05/12/2015 05/12/2015 Dysphagia 05/12/2015 05/12/2015 documented as of this encounter (statuses as of 10/24/2021) [address]06-2016 History of Past illness Narrative* Problem Noted Date Resolved Date Gastroesophageal reflux disease 05/12/2015 05/12/2015 Dysphagia 05/12/2015 05/12/2015 documented as of this encounter (statuses as of 11/03/2021) [address]06-2016 History of Past illness Narrative* Problem Noted Date Resolved Date Gastroesophageal reflux disease 05/12/2015 05/12/2015 Dysphagia 05/12/2015 05/12/2015 documented as of this encounter (statuses as of 11/15/2021) [address]06-2016 History of Past illness Narrative* Problem Noted Date Resolved Date Gastroesophageal reflux disease 05/12/2015 05/12/2015 Dysphagia 05/12/2015 05/12/2015 documented as of this encounter (statuses as of 12/12/2021) [address]06-2016 History of Past illness Narrative* Problem Noted Date Resolved Date Gastroesophageal reflux disease 05/12/2015 05/12/2015 Dysphagia 05/12/2015 05/12/2015 documented as of this encounter (statuses as of 12/19/2021) [address]06-2016 History of Past illness Narrative* Problem Noted Date Resolved Date Gastroesophageal reflux disease 05/12/2015 05/12/2015 Dysphagia 05/12/2015 05/12/2015 documented as of this encounter (statuses as of 01/16/2022) [address]06-2016 History of Past illness Narrative* Problem Noted Date Resolved Date Gastroesophageal reflux disease 05/12/2015 05/12/2015 Dysphagia 05/12/2015 05/12/2015 documented as of this encounter (statuses as of 02/15/2022) [address]-2016 History of Past illness Narrative* Problem Noted Date Resolved Date Gastroesophageal reflux disease 05/12/2015 05/12/2015 Dysphagia 05/12/2015 05/12/2015 documented as of this encounter (statuses as of 03/23/2022) [facility] History of Past illness Narrative* Problem Noted Date Resolved Date Gastroesophageal reflux disease 05/12/2015 05/12/2015 Dysphagia 05/12/2015 05/12/2015 documented as of this encounter (statuses as of 04/23/2022) [facility] note* Diagnosis Chronic bilateral low back pain with bilateral sciatica- Primary documented in this encounter [facility] note* Diagnosis Sprain of right shoulder, unspecified [...] without neurogenic claudication documented in this encounter [facility] note* Diagnosis Chronic bilateral low back pain with bilateral sciatica Spinal stenosis, lumbar region, without neurogenic claudication documented in this encounter [facility] note* Diagnosis Chronic bilateral low back pain with bilateral sciatica Spinal stenosis, lumbar region, without neurogenic claudication Lumbar radiculopathy Thoracic or lumbosacral neuritis or radiculitis, unspecified documented in this encounter [facility] note* Diagnosis Radiculopathy, lumbar region- Primary Thoracic or lumbosacral neuritis or radiculitis, unspecified Radiculopathy, lumbar region Thoracic or lumbosacral neuritis or radiculitis, unspecified documented in this encounter [facility] note* Diagnosis Spinal stenosis, lumbar region, without neurogenic claudication Chronic bilateral low back pain with bilateral sciatica Radiculopathy, lumbar region Thoracic or lumbosacral neuritis or radiculitis, unspecified documented in this encounter [facility] note* Diagnosis Spinal stenosis, lumbar region, without neurogenic claudication Chronic bilateral low back pain with bilateral sciatica Radiculopathy, lumbar region Thoracic or lumbosacral neuritis or radiculitis, unspecified [facility] Diagnosis High risk medication use- Primary Encounter for long-term (current) use of other medications 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 Spinal stenosis, lumbar region, without neurogenic claudication Lumbar sprain, sequela Chronic bilateral low back pain with bilateral sciatica Radiculopathy, lumbar region Thoracic or lumbosacral neuritis or radiculitis, unspecified [facility] Diagnosis Spinal stenosis, lumbar region, without neurogenic claudication Chronic bilateral low back pain with bilateral sciatica [facility] Diagnosis Spinal stenosis, lumbar region, without neurogenic claudication Chronic bilateral low back pain with bilateral sciatica [facility] Diagnosis Spinal stenosis, lumbar region, without neurogenic claudication Chronic bilateral low back pain with bilateral sciatica 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 Lumbar sprain, sequela High risk medication use Encounter for long-term (current) use of other medications [facility] Diagnosis Lumbar sprain, sequela- Primary Spinal stenosis, lumbar region, without neurogenic claudication Chronic bilateral low back pain with bilateral sciatica High risk medication use Encounter for long-term (current) use of other medications [facility] Diagnosis Spinal stenosis, lumbar region, without neurogenic claudication Chronic bilateral low back pain with bilateral sciatica [facility] Diagnosis Spinal stenosis, lumbar region, without neurogenic claudication Chronic bilateral low back pain with bilateral sciatica [facility] Diagnosis Lumbar sprain, sequela- Primary Strain of tendon of right rotator cuff, sequela Spinal stenosis, lumbar region, without neurogenic claudication Chronic bilateral low back pain with bilateral sciatica Type 2 diabetes mellitus without complication, with long-term current use of insulin (HCC) [facility] Diagnosis Spinal stenosis, lumbar region, without neurogenic claudication [facility] Diagnosis Spinal stenosis, lumbar region, without neurogenic claudication [facility] Diagnosis Dysuria- Primary Chest pain, unspecified type documented in this encounter [facility] Summary Purpose Family History No Family History Records FoundNo Family History Records FoundNo Family History Records FoundNo Family History Records FoundNo Family History Records Found Advance Directives No Advanced Directives Records FoundDocuments on File Type Date 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 Advance Directive(s) 05/12/2015 11:59 AM Advance Directive(s) 04/30/2015 10:47 AM Additional Source Comments INFORMATION SOURCE (unrecogn ized section and content) DATE CREATED AUTHOR 10/04/2018 [facility] ([place]) DATE CREATED AUTHOR AUTHOR'S ORGANIZ ATION 10/08/2020 [facility] DATE CREATED AUTHOR AUTHOR'S ORGANIZ ATION 05/17/2021 [facility] [place] DATE CREATED AUTHOR AUTHOR'S ORGANIZ ATION 01/20/2023 [facility] DATE CREATED AUTHOR AUTHOR'S ORGANIZ ATION 05/20/2023 [facility] Source Comments (unrecognize d section and content) In the event this informatio n is protected by the Federal Confidentiality of Alcohol and Drug Abuse Patient Records regulations: The Federal rules restrict any use of the information to criminally investigate or prosecute any alcohol or drug abuse patient.[facility] the event this information is protected by the Federal Confidentiality of Alcohol and Drug Abuse Patient Records regulations: The Federal rules restrict any use of the information to criminally investigate or prosecute any alcohol or drug abuse patient.[facility] the event this information is protected by the Federal Confidentiality of Alcohol and Drug Abuse Patient Records regulations: The Federal rules restrict any use of the information to criminally investigate or prosecute any alcohol or drug abuse patient.[facility] the event this information is protected by the Federal Confidentiality of Alcohol and Drug Abuse Patient Records regulations: The Federal rules restrict any use of the information to criminally investigate or prosecute any alcohol or drug abuse patient.[facility] the event this information is protected by the Federal Confidentiality of Alcohol and Drug Abuse Patient Records regulations: The Federal rules restrict any use of the information to criminally investigate or prosecute any alcohol or drug abuse patient.[facility] the event this information is protected by the Federal Confidentiality of Alcohol and Drug Abuse Patient Records regulations: The Federal rules restrict any use of the information to criminally investigate or prosecute any alcohol or drug abuse patient.[facility] the event this information is protected by the Federal Confidentiality of Alcohol and Drug Abuse Patient Records regulations: The Federal rules restrict any use of the information to criminally investigate or prosecute any alcohol or drug abuse patient.[facility] the event this information is protected by the Federal Confidentiality of Alcohol and Drug Abuse Patient Records regulations: The Federal rules restrict any use of the information to criminally investigate or prosecute any alcohol or drug abuse patient.[facility] the event this information is protected by the Federal Confidentiality of Alcohol and Drug Abuse Patient Records regulations: The Federal rules restrict any use of the information to criminally investigate or prosecute any alcohol or drug abuse patient.[facility] the event this information is protected by the Federal Confidentiality of Alcohol and Drug Abuse Patient Records regulations: The Federal rules restrict any use of the information to criminally investigate or prosecute any alcohol or drug abuse patient.[facility] the event this information is protected by the Federal Confidentiality of Alcohol and Drug Abuse Patient Records regulations: The Federal rules restrict any use of the information to criminally investigate or prosecute any alcohol or drug abuse patient.[facility] the event this information is protected by the Federal Confidentiality of Alcohol and Drug Abuse Patient Records regulations: The Federal rules restrict any use of the information to criminally investigate or prosecute any alcohol or drug abuse patient.[facility] the event this information is protected by the Federal Confidentiality of Alcohol and Drug Abuse Patient Records regulations: The Federal rules restrict any use of the information to criminally investigate or prosecute any alcohol or drug abuse patient.[facility] the event this information is protected by the Federal Confidentiality of Alcohol and Drug Abuse Patient Records regulations: The Federal rules restrict any use of the information to criminally investigate or prosecute any alcohol or drug abuse patient.[facility] the event this information is protected by the Federal Confidentiality of Alcohol and Drug Abuse Patient Records regulations: The Federal rules restrict any use of the information to criminally investigate or prosecute any alcohol or drug abuse patient.[facility] the event this information is protected by the Federal Confidentiality of Alcohol and Drug Abuse Patient Records regulations: The Federal rules restrict any use of the information to criminally investigate or prosecute any alcohol or drug abuse patient.[facility] the event this information is protected by the Federal Confidentiality of Alcohol and Drug Abuse Patient Records regulations: The Federal rules restrict any use of the information to criminally investigate or prosecute any alcohol or drug abuse patient.[facility] the event this information is protected by the Federal Confidentiality of Alcohol and Drug Abuse Patient Records regulations: The Federal rules restrict any use of the information to criminally investigate or prosecute any alcohol or drug abuse patient.[facility] the event this information is protected by the Federal Confidentiality of Alcohol and Drug Abuse Patient Records regulations: The Federal rules restrict any use of the information to criminally investigate or prosecute any alcohol or drug abuse patient.[facility] the event this information is protected by the Federal Confidentiality of Alcohol and Drug Abuse Patient Records regulations: The Federal rules restrict any use of the information to criminally investigate or prosecute any alcohol or drug abuse patient.[facility] the event this information is protected by the Federal Confidentiality of Alcohol and Drug Abuse Patient Records regulations: The Federal rules restrict any use of the information to criminally investigate or prosecute any alcohol or drug abuse patient.[facility] the event this information is protected by the Federal Confidentiality of Alcohol and Drug Abuse Patient Records regulations: The Federal rules restrict any use of the information to criminally investigate or prosecute any alcohol or drug abuse patient.[facility] the event this information is protected by the Federal Confidentiality of Alcohol and Drug Abuse Patient Records regulations: The Federal rules restrict any use of the information to criminally investigate or prosecute any alcohol or drug abuse patient.[facility] HospitalIn the event this information is protected by the Federal Confidentiality of Alcohol and Drug Abuse Patient Records regulations: The Federal rules restrict any use of the information to criminally investigate or prosecute any alcohol or drug abuse patient.[facility] HospitalIn the event this information is protected by the Federal Confidentiality of Alcohol and Drug Abuse Patient Records regulations: The Federal rules restrict any use of the information to criminally investigate or prosecute any alcohol or drug abuse patient.[facility] HospitalIn the event this information is protected by the Federal Confidentiality of Alcohol and Drug Abuse Patient Records regulations: The Federal rules restrict any use of the information to criminally investigate or prosecute any alcohol or drug abuse patient.[facility] HospitalIn the event this information is protected by the Federal Confidentiality of Alcohol and Drug Abuse Patient Records regulations: The Federal rules restrict any use of the information to criminally investigate or prosecute any alcohol or drug abuse patient.[facility] HospitalIn the event this information is protected by the Federal Confidentiality of Alcohol and Drug Abuse Patient Records regulations: The Federal rules restrict any use of the information to criminally investigate or prosecute any alcohol or drug abuse patient.[facility] HospitalIn the event this information is protected by the Federal Confidentiality of Alcohol and Drug Abuse Patient Records regulations: The Federal rules restrict any use of the information to criminally investigate or prosecute any alcohol or drug abuse patient.[facility] HospitalIn the event this information is protected by the Federal Confidentiality of Alcohol and Drug Abuse Patient Records regulations: The Federal rules restrict any use of the information to criminally investigate or prosecute any alcohol or drug abuse patient.[facility] HospitalIn the event this information is protected by the Federal Confidentiality of Alcohol and Drug Abuse Patient Records regulations: The Federal rules restrict any use of the information to criminally investigate or prosecute any alcohol or drug abuse patient.[facility] HospitalIn the event this information is protected by the Federal Confidentiality of Alcohol and Drug Abuse Patient Records regulations: The Federal rules restrict any use of the information to criminally investigate or prosecute any alcohol or drug abuse patient.[facility] HospitalIn the event this information is protected by the Federal Confidentiality of Alcohol and Drug Abuse Patient Records regulations: The Federal rules restrict any use of the information to criminally investigate or prosecute any alcohol or drug abuse patient.[facility] HospitalIn the event this information is protected by the Federal Confidentiality of Alcohol and Drug Abuse Patient Records regulations: The Federal rules restrict any use of the information to criminally investigate or prosecute any alcohol or drug abuse patient.[facility] HospitalIn the event this information is protected by the Federal Confidentiality of Alcohol and Drug Abuse Patient Records regulations: The Federal rules restrict any use of the information to criminally investigate or prosecute any alcohol or drug abuse patient.[facility] HospitalIn the event this information is protected by the Federal Confidentiality of Alcohol and Drug Abuse Patient Records regulations: The Federal rules restrict any use of the information to criminally investigate or prosecute any alcohol or drug abuse patient.[facility] Reason for Visit (unrecogniz ed section and content) Reason Comments Back Pain Specialty Diagnoses / Procedures Referred By Scarlett t Referred To Contact PAIN MANAGEMENT Diagnoses Unspecified sprain of right shoulder joint, initial encounter S43.401A, S33.5XXA, S40.011A, S50.11XA, S30.0XA, S46.011A, M54.17, S43.431A, M25.811, M51.27, M75.41, M19.077, M48.061 Procedures EST PATIENT VISIT LEVEL 1 Rhonda Madden, MATERIAL ASSEM[place] [address] [place] [address] Referral ID Status Reason Start Date Expiration Date Visits Re quested Visits Authorized [id number] Closed 05/17/2022 08/15/2022 1 1 Specialty Diagnoses / Procedures Referred By Contac t Referred To Contact Internal Medicine / PAIN MANAGEMENT Diagnoses 3 Month Follow Up Procedures REFERRAL TO [facility] FINANCIAL COUNSELOR EST PATIENT Self Rhonda Madden, MATERIAL ASSEMBLER.[facility] [address] [place] [id number] Referral ID Status Reason Start Date Expiration Date V isits Requested Visits Authorized [id number] Closed Financial Clearance Not Required 02/15/2022 05/14/2022 [...] 3 month follow up Procedures EST PATIENT Rhonda Madden, [place] [address] Rhonda Madden, MATERIAL ASSEMBLER[place] [address] Referral ID Status Reason Start Date Expiration Date Visits Requested Visits Authorized [id number] Pending Review Patient Cleared - Admin/Chair man/Directo r advise to proceed 05/17/2022 08/15/2022 1 1 Reason Comments med pa Reason Comments xtampza approval Reason Comments C-9 Status Reason Onset Date Comments Refill Request 09/20/2022 Reason Onset Date Comments Refill Request 10/18/2022 Specialty Diagnoses / Procedures Referred By Conteliu t Referred To Contact PAIN MANAGEMENT Diagnoses Unspecified sprain of right shoulder joint, initial encounter S43.401A, S33.5XXA, S40.011A, S50.11XA, S30.0XA, S46.011A, M54.17, S43.431A, M25.811, M51.27, M75.41, M19.077, M48.061 Procedures REFERRAL TO [facility] FINANCIAL COUNSELOR UDS [id number], 28502, [id number], [id number] Rhonda Madden APRN.[facility] [address] [place] [address] Pain [facility] [address] [place] [address] Referral ID Status Reason Start Date Expiration Date Visits Re quested Visits Authorized [id number] Closed 08/16/2022 11/14/2022 1 1 Reason Comments Radiology US Reason Onset Date Comments Refill Request 12/16/2022 Reason Onset Date Comments Refill Request 01/14/2023 Reason Comments Urinary Problem Possible uti, burnin g, frequency, incontinence x 5 daysCough, chest pain/burning, sob x 1 month Care Teams (unrecognized sec tion and content) Jewelry Facer Relationship Specialty Start Date End Date Simran Elaine CNP [address] [place] [address] PCP - General Internal Medicine 03/28/21 Jewelry Facer Relationship Specialty Start Date End Date Simran Elaine CNP [address] [place] [address] PCP - General Internal Medicine 03/28/21 Jewelry Facer Relationship Specialty Start Date End Date Simran Elaine, DUNIA [address] [place] [address] PCP - General Internal Medicine 03/28/21 Jewelry Facer Relationship Specialty Start Date End Date Simran Elaine CNP [address] [place] [address] PCP - General Internal Medicine 03/28/21 Jewelry Facer Relationship Specialty Start Date End Date Simran Elaine CNP [address] [place] [address] PCP - General Internal Medicine 03/28/21 Jewelry Facer Relationship Specialty Start Date End Date Simran Elaine CNP [address] [place] [address] PCP - General Internal Medicine 03/28/21 Jewelry Facer Relationship Specialty Start Date End Date Simran Elaine CNP [address] [place] [address] PCP - General Internal Medicine 03/28/21 Jewelry Facer Relationship Specialty Start Date End Date Simran Elaine CNP [address] [place] [address] PCP - General Internal Medicine 03/28/21 Jewelry Facer Relationship Specialty Start Date End Date Simran Elaine CNP [address] [place] [address] PCP - General Internal Medicine 03/28/21 Jewelry Facer Relationship Specialty Start Date End Date Angeles Jauregui NP [address] [place] [address] PCP - General Family Medicine 12/02/21 Jewelry Facer Relationship Specialty Start Date End Date Angeles Jauregui NP [address] [place] [address] PCP - General Family Medicine 12/02/21 Jewelry Facer Relationship Specialty Start Date End Date Angeles Jauregui NP [address] [place] [address] PCP - General Family Medicine 12/02/21 Jewelry Facer Relationship Specialty Start Date End Date Angeles Jauregui NP [address] [place] [address] PCP - General Family Medicine 12/02/21 Jewelry Facer Relationship Specialty Start Date End Date Angeles Jauregui NP [address] [place] [address] PCP - General Family Medicine 12/02/21 Jewelry Facer Relationship Specialty Start Date End Date Angeles Jauregui NP [address] [place] [address] PCP - General Family Medicine 12/02/21 Jewelry Facer Relationship Specialty Start Date End Date Angeles Jauregui NP [address] [place] [address] PCP - General Family Medicine 12/02/21 Jewelry Facer Relationship Specialty Start Date End Date Angeles Jauregui NP [address] [place] [address] PCP - General Family Medicine 12/02/21 Jewelry Facer Relationship Specialty Start Date End Date Angeles Jauregui NP [facility] [place] [address] PCP - General Family Medicine 12/02/21 Jewelry Facer Relationship Specialty Start Date End Date Angeles Jauregui NP [address] [place] [address], [place] [address] PCP - General Family Medicine 12/02/21 Jewelry Facer Relationship Specialty Start Date End Date Angeles Jauregui NP [address] [place] [address], [place] [address] PCP - General Family Medicine 12/02/21 Jewelry Facer Relationship Specialty Start Date End Date Angeles Jauregui NP PCP - General Family Medicine 12/02/21 Jewelry Facer Relationship Specialty Start Date End Date Angeles Jauregui NP PCP - General Family Medicine 12/02/21 Jewelry Facer Relationship Specialty Start Date End Date Angeles Jauregui NP PCP - General Family Medicine 12/02/21 Jewelry Facer Relationship Specialty Start Date End Date Angeles Jauregui NP PCP - General Family Medicine 12/02/21 Jewelry Facer Relationship Specialty Start Date End Date Angeles Jauregui NP PCP - General Family Medicine 12/02/21 Jewelry Facer Relationship Specialty Start Date End Date Angeles Jauregui NP PCP - General Family Medicine 12/02/21 Jewelry Facer Relationship Specialty Start Date End Date Angeles Jauregui NP PCP - General Family Medicine 12/02/21 Jewelry Facer Relationship Specialty Start Date End Date Angeles Jauregui NP PCP - General Family Medicine 12/02/21 Jewelry Facer Relationship Specialty Start Date End Date Angeles Jauregui NP PCP - General Family Medicine 12/02/21 Jewelry Facer Relationship Specialty Start Date End Date Angeles Jauregui NP PCP - General Family Medicine [...] BE BASED ON THE PRIMARY CLINICAL RECORDS. [facility] [employer] [facility]. provides no warranty or guarantee of the accuracy or completeness of information in this document.
== END | disposition home or self-care (01) ==
LOC: VSLAB 16:40
PROVIDERS: PCP Nurse Practitioner Family; Visit Provider Nurse Practitioner Family
DX: E11.65 Type 2 diabetes mellitus with hyperglycemia (principal); I10 Essential (primary) hypertension; E55.9 Vitamin D deficiency, unspecified
CPT/HCPCS: 36415; 80053; 82043; 82306; 84443; 85025

== ENCOUNTER → 2024-03-28 | Outpatient (CLI) | payer MEDICARE, SELFPAY ==
--- NOTE | 2024-03-28 13:53 | US_ITS ---
PROCEDURE: KIDNEY AND BLADDER REASON FOR EXAM: Chronic kidney disease stage 3 TECHNIQUE: Ultrasound of the kidneys and bladder COMPARISON: Comparison is made with prior study dated September 04, 2020. FINDINGS: Normal renal sizes, parenchymal thicknesses, and echotextures. No hydronephrosis. No cysts or large solid renal masses. Grossly normal bladder contour. No large bladder wall mass visualized. RIGHT Kidney Size: 10 cm x 5.2 cm x 4.5 cm Volume: 235 mL Cortical Thickness (if discernible): 9 mm (>6mm is normal) LEFT Kidney Size: 11.2 cm x 5.2 cm x 5 cm Volume: 151 mL Cortical Thickness (if discernible): 10 mm (>6mm is normal) BLADDER: Prevoid volume: 267 mL Mild degree of bladder wall thickening measuring 5.6 mm. US/Kidney and Bladder IMPRESSION: NORMAL RENAL. Bladder wall thickening measuring 5.6 mm. Reading Location: [place] [address]
[2024-03-28 15:08] LABS: ALB/GLOB Ratio 0.8 RATIO (0.9-2.4); AST(SGOT) 27 U/L (15-37); Alanine Aminotransfer ALT/SGPT 46 U/L (13-56); Albumin, Serum 3.4 g/dL (3.2-5.0); Alkaline Phosphatase 38 U/L (45-117); Anion Gap 8 (5-15); BUN 15 mg/dL (7-18); Calcium,Total 10.5 mg/dL (8.5-10.1); Chloride 100 mmol/L (98-107); Cholesterol 175 mg/dL (200); Creatinine, Serum 1.25 mg/dL (0.55-1.02); EST Glomerular Filtration Rate 46 mL/min (>60); Est Glom Filt Rate - Afr Amer 55 mL/min (>60); Globulin 4.3 g/dL (2.2-4.2); Glucose 198 mg/dL (74-106); High Density Lipoprotein 86 mg/dL; Potassium 3.8 mmol/L (3.5-5.1); Protein, Total 7.7 g/dL (6.4-8.2); Sodium Level 134 mmol/L (136-145); Triglycerides 117 mg/dL; Very Low Density Lipoprotein 23 mg/dL (5-40)
[2024-03-28 15:18] LABS: Microalbumin,Random Urine 6.4 mg/L (NO RANGE EST.); Microalbumin:Creatinine Ratio 40.6 mg/g CRE (<30 mg/g CRE)
== END | disposition home or self-care (01) ==
LOC: US 13:29
PROVIDERS: PCP Nurse Practitioner Family; Referring Provider Internal Medicine Endocrinology, Diabetes & Metabolism; Visit Provider Internal Medicine Nephrology
DX: N18.32 Chronic kidney disease, stage 3b (principal)
CPT/HCPCS: 36415; 76770; 80053; 80061; 82043; 82570; 83970

== ENCOUNTER → 2024-04-01 | Outpatient (CLI) | payer MEDICARE, SELFPAY ==
[2024-04-01 20:42] LABS: Protein, Urine (Random) 16 mg/dL (<=12); Protein:Creat Ratio 118 mg/g CRE (0-200)
[2024-04-01 20:50] LABS: Albumin, Serum 3.9 g/dL (3.4-4.8); BUN 15 mg/dL (4-19); EST Glomerular Filtration Rate 61 (>60); Glucose 204 mg/dL (70-99); Phosphorus 3.4 mg/dL (2.7-4.5); Vitamin D,25 Hydroxy 57.5 ng/mL (30-100)
[2024-04-01 22:52] LABS: PTHIN 28 pg/mL (11-61)
[2024-04-02 03:32] LABS: Sodium Level 137 mmol/L (136-145)
[2024-04-02 03:33] LABS: Chloride 100 mmol/L (98-107)
[2024-04-05 18:07] LABS: Vitamin D 1,25-Dihydroxy 41.4 pg/mL (24.8-81.5)
== END | disposition home or self-care (01) ==
PROVIDERS: PCP Nurse Practitioner Family; Referring Provider Internal Medicine Nephrology; Visit Provider Internal Medicine Nephrology
DX: N18.32 Chronic kidney disease, stage 3b (principal); E83.52 Hypercalcemia
CPT/HCPCS: 36415; 80069; 82306; 82570; 82652; 83970; 84156

== ENCOUNTER → 2024-05-14 | Outpatient (CLI) | payer MEDICARE, SELFPAY ==
[2024-05-14 11:44] LABS: Basophil# 0.06 X10^3/uL; Basophil% 0.8 % (0-1); Eosinophil# 0.24 X10^3/uL; Eosinophils% 3.2 % (0-5); Hematocrit 44.2 % (37-47); Lymphocyte % 34.3 % (19-41); Mean Corp Hgb Conc 33.9 g/dL (32-36); Mean Corpuscular Hgb 32.9 pg (27.0-32.0); Mean Corpuscular Volume 96.9 fL (81-99); Mean Platelet Vol. 10.2 fl (6.2-12.0); Monocyte# 0.73 X10^3/uL; Monocyte% 9.6 % (0-10); NRBC Flagged by Analyzer 0 % (0-5); Neutrophil # 3.95 X10^3/uL (2.7-7.7); Platelet Count 196 K/mm3 (150-450); RBC Distribution Width CV 14.6 % (11.6-14.6); RBC Distribution Width SD 52.6 fl (35.1-43.9); Red Blood Count 4.56 M/mm3 (4.2-5.4); White Blood Count 7.6 K/mm3 (4.4-11.0)
[2024-05-14 14:46] LABS: ALB/GLOB Ratio 1.1 RATIO (0.9-2.4); AST(SGOT) 29 U/L (<=31); Alanine Aminotransfer ALT/SGPT 30 U/L (<=34); Albumin, Serum 4.2 g/dL (3.4-4.8); Alkaline Phosphatase 36 U/L (35-104); Anion Gap 17 (5-15); BUN 15 mg/dL (4-19); BUN/Creat Ratio 14.1 RATIO (10-20); Calcium,Total 11.3 mg/dL (7.6-11.0); Carbon Dioxide 22.2 mmol/L (21.0-32.0); Chloride 99 mmol/L (98-108); Creatinine, Serum 1.07 mg/dL (0.70-1.20); EST Glomerular Filtration Rate 58 (>60); Glucose 209 mg/dL (70-99); Lipase 56 U/L (13-75); Protein, Total 8.2 g/dL (5.9-8.4); Sodium Level 139 mmol/L (133-145); Total Bilirubin 0.55 mg/dL (0.00-1.30)
== END | disposition home or self-care (01) ==
LOC: VSLAB 09:06
PROVIDERS: PCP Nurse Practitioner Family; Visit Provider Nurse Practitioner Family
DX: R10.9 Unspecified abdominal pain (principal)
CPT/HCPCS: 36415; 80053; 83690; 85025

== ENCOUNTER → 2024-05-22 | Outpatient (CLI) | payer MEDICARE, SELFPAY ==
--- NOTE | 2024-05-22 14:28 | RAD_ITS ---
PROCEDURE: ABD INC DECUB AND/OR ERECT 05/22/2024 REASON FOR EXAM: UNSPECIFIED ABDOMINAL PAIN TECHNIQUE: Single view abdomen. COMPARISON: CT scan on 02/23/2018. FINDINGS: Moderate amount of fecal residue in the large bowels. Metallic clips are noted in the right upper quadrant. Normal visualized lung bases. There is an unremarkable bowel gas pattern. There is no demonstrated free abdominal air. Normal visualized liver. Normal visualized spleen. Suspected bilateral tiny renal stones with the largest measuring 3 mm. The soft tissue structures of the pelvis are unremarkable. Moderate diffuse spondylosis. Unremarkable spinal fusion metallic hardware. RAD/Abd Inc Decub and/or Erect IMPRESSION: Moderate amount of fecal residue in the large bowels. Reading [facility]
== END | disposition home or self-care (01) ==
LOC: RAD 14:18
PROVIDERS: PCP Nurse Practitioner Family
DX: R10.9 Unspecified abdominal pain (principal)
CPT/HCPCS: 74019

== ENCOUNTER → 2024-07-29 | Outpatient (CLI) | payer MEDICARE, SELFPAY ==
[2024-07-29 16:47] LABS: Absolute Lymphocyte Count 1.53 X10^3/uL (0.83-4.51); Absolute Neutrophil Count 1.9 X10^3/uL (2.0-7.7); Basophil# 0.02 X10^3/uL; Basophil% 0.5 % (0-1); Eosinophil# 0.09 X10^3/uL; Eosinophils% 2.3 % (0-5); Hematocrit 39.5 % (37-47); Hemoglobin 13.4 g/dL (12.0-15.0); Lymphocyte # 1.53 X10^3/ul (0.83-4.51); Lymphocyte % 39.1 % (19-41); Mean Corp Hgb Conc 33.9 g/dL (32-36); Mean Corpuscular Hgb 32.3 pg (27.0-32.0); Mean Corpuscular Volume 95.2 fL (81-99); Mean Platelet Vol. 10.6 fl (6.2-12.0); Monocyte# 0.36 X10^3/uL; Monocyte% 9.2 % (0-10); NRBC Flagged by Analyzer 0 % (0-5); Neutrophil % 48.6 % (47-70); Platelet Count 131 K/mm3 (150-450); RBC Distribution Width CV 13.9 % (11.6-14.6); RBC Distribution Width SD 46.6 fl (35.1-43.9); Red Blood Count 4.15 M/mm3 (4.2-5.4); White Blood Count 3.9 K/mm3 (4.4-11.0)
[2024-07-29 17:23] LABS: ALB/GLOB Ratio 1.1 RATIO (0.9-2.4); AST(SGOT) 56 U/L (<=31); Alanine Aminotransfer ALT/SGPT 39 U/L (<=34); Albumin, Serum 3.8 g/dL (3.4-4.8); Alkaline Phosphatase 34 U/L (35-104); Anion Gap 15 (5-15); BUN 12 mg/dL (4-19); BUN/Creat Ratio 11.5 RATIO (10-20); Carbon Dioxide 24.7 mmol/L (21.0-32.0); Chloride 99 mmol/L (98-108); Creatinine, Serum 1.01 mg/dL (0.70-1.20); EST Glomerular Filtration Rate 62 (>60); Globulin 3.4 g/dL (2.2-4.2); Glucose 203 mg/dL (70-99); Potassium 4.2 mmol/L (3.3-5.1); Protein, Total 7.2 g/dL (5.9-8.4); Sodium Level 139 mmol/L (133-145); Total Bilirubin 0.24 mg/dL (0.00-1.30)
[2024-07-29 17:24] LABS: Vitamin D,25 Hydroxy 59.4 ng/mL (30-100)
== END | disposition home or self-care (01) ==
LOC: VSLAB 11:24
PROVIDERS: PCP Nurse Practitioner Family; Visit Provider Nurse Practitioner Family
DX: E11.65 Type 2 diabetes mellitus with hyperglycemia (principal); I10 Essential (primary) hypertension; E55.9 Vitamin D deficiency, unspecified
CPT/HCPCS: 36415; 80053; 82306; 84443; 85025

== ENCOUNTER → 2024-08-04 | Outpatient (CLI) | payer MEDICARE, SELFPAY ==
[2024-08-04 16:05] LABS: Absolute Lymphocyte Count 1.32 X10^3/uL (0.83-4.51); Basophil# 0.02 X10^3/uL; Basophil% 0.5 % (0-1); Eosinophil# 0.11 X10^3/uL; Eosinophils% 2.8 % (0-5); Hematocrit 38.7 % (37-47); Hemoglobin 13.2 g/dL (12.0-15.0); Lymphocyte # 1.32 X10^3/ul (0.83-4.51); Lymphocyte % 33.8 % (19-41); Mean Corp Hgb Conc 34.1 g/dL (32-36); Mean Corpuscular Hgb 32.1 pg (27.0-32.0); Mean Corpuscular Volume 94.2 fL (81-99); Mean Platelet Vol. 10.7 fl (6.2-12.0); Monocyte# 0.42 X10^3/uL; Monocyte% 10.7 % (0-10); NRBC Flagged by Analyzer 0 % (0-5); Neutrophil # 2.03 X10^3/uL (2.7-7.7); Neutrophil % 51.9 % (47-70); Platelet Count 132 K/mm3 (150-450); RBC Distribution Width CV 14.5 % (11.6-14.6); RBC Distribution Width SD 49.1 fl (35.1-43.9); Red Blood Count 4.11 M/mm3 (4.2-5.4); White Blood Count 3.9 K/mm3 (4.4-11.0)
[2024-08-04 16:41] LABS: Microalbumin,Random Urine < 12.0 mg/L (NO RANGE EST.)
[2024-08-04 16:53] LABS: Iron 86 ug/dL (50-170); Iron Binding Capacity,Total 286 ug/dL (250-450); Iron Binding Capacity,Unsat 200 ug/dL (228-428)
[2024-08-04 17:05] LABS: Ferritin 112 ng/mL (22-378); Free T3 3.2 pg/mL (2.18-3.98)
--- OUTSIDE RECORDS SUMMARY | 2024-08-05 00:04 | XMS RPT_ITS | CCD ---
Author Organization [facility] Care Team Providers Care E Business Manager Name Role Phone [facility], [place] Mati Primary Care Pro vider Dr. Flex Youngblood Emergency Provider Dr. Sienna Winchester Admit Provider Dr. Sienna Winchester Attending Provider Dr. Sienna Winchester Other Provider Dr. Todd Parker Attending Provider Unavailable Dr. Todd Parker Other Provider Unavailable Dr. Dilshad Huffman Attending Provider Dr. Dilshad Huffman Other Provider Simran Elaine CNP Primary Care Provider [facility], [place] [facility] Primary Care Pro vider [facility], Enrico Thorne Referring Provid er Dr. Chino Peace Attending Provider Simran Elaine CNP Primary Care Provider Simran Elaine CNP Primary Care Provider Kit [employer] LABORATORY TECHNICIAN, [place] Primary Care Provider Kit BLOOD BANK LABORATORY TECHNICIAN, [place] Primary Care Provider [facility], [place] [facility] Primary Care Pro vider [facility], [place] Referring Provid er Dr. Chino Peace Attending Provider [facility], [place] Primary Care Pro vider [facility], [place] Referring Provid er Dr. Chino Peace Attending Provider [facility], [place] Primary Care Pro vider [facility], [facility] Referring Provid er Dr. Chino Peace Attending Provider Kit BLOOD BANK LABORATORY TECHNICIAN, [place] Primary Care Provider Kit BLOOD BANK LABORATORY TECHNICIAN, [place] Primary Care Provider LINA LAM Attending Unavailable FREDIS, RHONDA Referring Unavailable KIT, ANGELES Primary Care Unavailable ISHA, JAMESETTA H Admitting Unavailable ISHA, JAMESETTA H Attending Unavailable KIT, ANGELES Primary Care Unavailable FREDIS, RHONDA Attending Unavailable KIT, ANGELES Primary Care Unavailable ISHA, JAMESETTA H Admitting Unavailable ISHA, JAMESETTA H Attending Unavailable SIMRAN ELAINE Primary Care Unavailable FREDIS, RHONDA Attending Unavailable FREDIS, RHONDA Referring Unavailable KIT, ANGELES Primary Care Unavailable FREDIS, RHONDA Attending Unavailable FREDIS, RHONDA Referring Unavailable KIT, ANGELES Primary Care Unavailable [facility], [facility] Primary Care Pro vider [facility], [place] [facility] Referring Provid er Dr. Chino Peace Attending Provider [facility], [facility] Primary Care Pro vider [facility], [facility] Referring Provid er Dr. Chino Peace Attending Provider Kit BLOOD BANK LABORATORY TECHNICIAN-C, [place] Primary Care Provider Kit BLOOD BANK LABORATORY TECHNICIAN-C, [place] Referring Provider Dr. Josh Mijares MD Attending Provider Dr. Chino Peace MD Attending Provider Amy DEUTSCH, Dr. Nolasco Attending Provider Dr. Chino Peace MD Referring Provider Amy DEUTSCH, Dr. Nolasco Referring Provider Kit BLOOD BANK LABORATORY TECHNICIAN, [place] Primary Care Provider KIT, ANGELES Primary Care Unavailable KIT, ANGELES Primary Care Unavailable Kit BLOOD BANK LABORATORY TECHNICIAN-C, [place] Primary Care Provider Kit BLOOD BANK LABORATORY TECHNICIAN-C, [place] Referring Provider Dyllan DEUTSCH, Dr. Moreno Attending Provider Dr. Josh Mijares MD Referring Provider Kit BLOOD BANK LABORATORY TECHNICIAN-C, [place] Attending Provider Kit BLOOD BANK LABORATORY TECHNICIAN-C, [facility] Primary Care Provider Kit BLOOD BANK LABORATORY TECHNICIAN-C, [place] Referring Provider Dr. Chino Peace MD Attending Provider Beam BLOOD BANK LABORATORY TECHNICIAN-C, [place] Attending Provider Beam BLOOD BANK LABORATORY TECHNICIAN-C, [place] Referring Provider Kit BLOOD BANK LABORATORY TECHNICIAN-C, [facility] Primary Care Provider Kit VS, [place] Referring Unavailabl e Kit VSC, [facility] Primary Care Unavailabl e Josh Mijares Attending Unavailable [facility], [facility] Primary Care Unavailabl e Hannah Penn Attending Unavailable [facility], [facility] Primary Care Unavailabl e Kit [facility], [place] Referring Unavailabl Joyce Tyson Attending Unavailable Joyce Barboza Consulting Unavailable [facility], [facility] Primary Care Unavailabl e Kit VSC, [facility] Referring Unavailabl e Josh Mijares Attending Unavailable Kit [facility], [facility] Primary Care Unavailabl e Kit VSC, [place] Referring Unavailabl e Josh Mijares Attending Unavailable Kit [facility], [facility] Primary Care Unavailabl e Kit VSC, [place] Referring Unavailabl e Chino Peace Attending Unavailable Kit VS, [facility] Primary Care Unavailabl e Kit VSC, [place] Referring Unavailabl e Chino Peace Attending Unavailable Kit VS, [place] Referring Unavailabl e Chino Peace Attending Unavailable [facility], [facility] Primary Care Unavailabl e SisJosh skelton Referring Unavailable Josh Mijares Attending Unavailable [facility], [facility] Primary Care Unavailabl e Kit VSC, [place] Attending Unavailabl e Kit VSC, [facility] Primary Care Unavailabl e Kit VSC, [facility] Referring Unavailabl e Amy, Constance Referring Unavailable Kit [facility], [place] Primary Care Unavailabl e Amy, Armandoyaprakas Attending Unavailable Kit VSC, [place] Attending Unavailabl e Kit VSC, [place] Primary Care Unavailabl e Kit VSC, [place] Primary Care Unavailabl e Beam VSC, [place] Referring Unavailable Beam VSC, [place] Attending Unavailable Kit VSC, [place] Attending Unavailabl e Kit VSC, [place] Primary Care Unavailabl e Kit VSC, [place] Primary Care Unavailabl e Kit VS, [place] Referring Unavailabl e Robotham, Joyce Attending Unavailable Kit VSC, [place] Attending Unavailabl e Kit VSC, [place] Primary Care Unavailabl e Amy, Jayaprakas Attending Unavailable [facility], [facility] Primary Care Unavailabl e Kobi, Chino Referring Unavailable Allergies Allergy Classification Reported Allergen(s) Allergy Type Date of Onset Reaction(s) Facility (20 sources) bee venom protein (honey bee); Translations: [BEE VENOM PROTEIN (HONEY BEE)] Allergy to substance 3 Other: See Comments [facility] Comment on above: mouth , eyes (1 source) bee venom protein (honey bee) Drug allergy (disorder) 5 [facility] Repository Medications Current Medications Medication Drug Class(es) Dates [...] for up to 30 days. 90 tablet 01/18/2023 Active Start: 07-23-2022 End: 08-15-2022 take [...] 2021. 90 tablet 0 07/29/2021 Active Start: 05-06-2020 End: 07-26-2021 Oxycodone-Acetaminophen (Per cocet) 5-325 mg tablet Active 1 {tbl} PO THREE TIMES A DAY as needed for Pain Or Fever 0 May 06, 2020 3:12pm Start: 04-20-2020 End: 05-06-2020 Oxycodone-Acetaminophen (Per cocet) 5-325 mg tablet Discontinued 1 {tbl} PO Q4H as needed for Pain Or Fever 0 April 20, 2020 8:50am May 06, 2020 3:15pm Start: 10-30-2019 End: 04-20-2020 Oxycodone-Acetaminophen (Per cocet) 5-325 mg tablet Discontinued 1 {tbl} PO THREE TIMES A DAY as needed for Pain Or Fever 0 October 30, 2019 12:00am April 20, 2020 8:54am End: 07-26-2021 oxyCODONE-acetaminophen 5-32 5 mg (PERCOCET) [...] for pain for up to 30 days. Acyclovir (1 source) Herpesvirus Nucleoside Analog DNA Polymerase Inhibitor, Herpes Simplex Virus Nucleoside Analog DNA Polymerase Inhibitor, Herpes Zoster Virus Nucleoside Analog DNA Polymerase Inhibitor ACYCLOVIR ORAL Take by mouth. Active [id number] 200 actuat albuterol 0.09 mg/actuat metered dose inhaler (20 sources) beta2-Adrenergic Agonist Start: 09-28-2023 Albuterol Sulfate 90 mcg/actuation HFA aerosol inhaler Active INHALATION September 28, 2023 12:00am Start: 06-08-2017 End: 05-06-2020 Albuterol Sulfate 18 GM HFA aerosol inhaler Discontinued 2 NMA INHALATION EVERY 4 HOURS NEEDED as needed for cough/shortness of breath June 08, 2017 12:00am May 06, 2020 3:14pm Start: 06-08-2017 End: 05-06-2020 take 1 puff(s) by inhalation every four hours as needed Albuterol Sulfate Discontinued 2 PUFF INHALATION EVERY 4 HOURS NEEDED June 08, 2017 12:00am May 06, 2020 3:14pm Albuterol Sulfat e 0.63 mg/3 mL nebulizer solution Use 1 Ampule via nebulizer every 6 hours as needed. Active albuterol HFA (P ROVENTIL HFA, VENTOLIN HFA) 90 mcg/actuation inhaler Inhale 2 Puffs as instructed. Active Comment on above: Use 1 Ampule via neb ulizer every 6 hours as needed. Inhale 2 Puffs as in structed. amLODIPine 5 mg oral tablet (20 sources) Dihydropyridine Calcium Channel Melissa Start: take 1 tablet by mouth once daily Amlodipine 5 mg tablet Active 5 mg PO daily April 10, 2024 1:00am Start: 02-02-2021 End: 01-02-2022 Amlodipine 10 mg Tablet Disc ontinued 5 mg PO DAILY February 02, 2021 1:00am January 02, 2022 11:54am Hold for SBP less than 130 mmHg Discontinue when losartan is resumed. Start: 02-02-2021 End: 01-02-2022 Amlodipine Discontinued 5 MG PO DAILY February 02, 2021 1:00am January 02, 2022 11:54am Hold for SBP less than 130 mmHg Discontinue when losartan is resumed. aspirin 81 mg delayed release oral tablet (20 sources) Platelet Aggregation Inhibitor, Nonsteroidal Anti-inflammatory Drug Start: 05-06-2020 Aspirin (Adult Lo w Dose Aspirin) 81 mg tablet,delayed release (DR/EC) Active 81 mg PO DAILY May 06, 2020 12:00am heart health Start: 01-16-2014 End: 04-20-2020 take 1 tablet by mouth at dinner Aspirin 81 MG tablet,chewable Discontinued 81 mg PO WITH DINNER January 16, 2014 1:00am April 20, 2020 8:53am health maintenance Comment on above: Take 81 mg by mouth once daily. Budesonide / formoterol (20 sources) Corticosteroid, beta2-Adrenergic Agonist Start: 04-23-19 15 take 2 puff(s) by inhalation twice daily budesonide-formote rol (SYMBICORT) 160-4.5 mcg/actuation inhaler Inhale 2 Puffs as instructed twice daily. 0 04/22/2014 Active Comment on above: Inhale 2 Puffs as in structed twice daily. calcium ascorbate 500 mg oral tablet (16 sources) Start: 07-27-19 take 1 tablet by mouth once daily Ascorbate Calcium (Vitamin C) 500 mg tablet Active 500 mg PO DAILY July 26, 2021 12:00am cetirizine hydrochloride 10 mg oral capsule (20 sources) Histamine-1 Receptor Antagonist Start: 07-11-19 take 1 capsule by mouth once daily as needed Cetirizine (All Day Allergy (Cetirizine)) 10 mg capsule Active 10 mg PO DAILY as needed for allergy symptoms July 11, 2023 12:00am Start: 04-20-2020 take 10 mg by mouth once daily Cetirizine Active 10 MG PO DAILY April 20, 2020 8:47am Comment on above: Take 10 mg by mouth once daily. cholecalciferol 0.05 mg oral capsule (20 sources) Vitamin D Start: 07-27-19 take 1 capsule by mouth once daily Cholecalciferol (Vitamin D3) 50 mcg (2,000 unit) capsule Active 50 ug PO DAILY July 26, 2021 12:00am Start: 01-31-2021 take 1 tablet by [facility] once daily Cholecalciferol (Vitamin D3) (Vitamin D3) 125 mcg (5,000 unit) Tablet Active 125 MCG PO DAILY January 31, 2021 7:59pm Start: 01-16-2014 End: 04-20-2020 take 1 tablet by mouth once daily Cholecalciferol (Vitamin D3) 1,000 UNIT tablet Discontinued 1000 U PO DAILY January 16, 2014 1:00am April 20, 2020 8:53am replacement take 1 capsule by [facility] once daily Cholecalciferol, Vitamin D3, 25 mcg (1,000 unit) cap Take 1,000 Units by mouth once daily. Active Comment on above: Take 1,000 Units by mouth once daily. cinnamon bark 500 mg oral capsule (4 sources) Start: 07-11-19 take 1 capsule by mouth once daily Cinnamon Bark (Cinnamon) 500 mg capsule Active 1000 mg PO DAILY July 11, 2023 12:00am cyclobenzaprine hydrochloride 10 mg oral tablet (20 sources) Muscle Relaxant Start: 12-18-19 23 take 1 tablet by mouth three times daily cyclobenzaprine (FLEXERIL) 10 mg tablet Take 1 tablet by mouth three times a day. 90 tablet 12/17/2022 Active Start: 11-19-2022 take 1 tablet [...] daily. 90 tablet 0 08/15/2021 09/16/2021 Discontinued Start: 05-06-2020 End: 09-06-2020 Cyclobenzaprine 10 mg tablet Discontinued 10 NMA PO THREE TIMES A DAY May 06, 2020 12:00am September 06, 2020 1:12pm Start: 05-06-2020 End: 09-06-2020 Cyclobenzaprine Discontinued 10 EACH PO THREE TIMES A DAY May 06, 2020 12:00am September 06, 2020 1:12pm Comment on above: Take 1 tablet by liban th three times daily. Take 1 tablet by liban th three times a day. docusate sodium 100 mg oral capsule (20 sources) Start: 05-07-19 take 1 capsule by mouth once daily Docusate Sodium (Col-Rite) 100 mg capsule Active 100 mg PO DAILY July 11, 2023 12:00am Comment on above: Take by mouth. [id number] 0.3 ml EPINEPHrine 1 mg/ml auto-injector (20 sources) alpha-Adrenergic Agonist, beta-Adrenergic Agonist, Catecholamine Start: 12-15-19 EPINEPHrine (EPIPEN) 0.3 mg/0.3 mL auto-injector inject 0.3 milliliters INTO MUSCLE OF OUTER THIGH ONCE WITH ONSET OF ALLERGIC REACTION 12/14/2021 Active Comment on above: inject 0.3 millilite rs INTO MUSCLE OF OUTER THIGH ONCE WITH ONSET OF ALLERGIC REACTION fluticasone propionate 0.05 mg/actuat metered dose nasal spray (20 sources) Corticosteroid take 1 spray(s) nasal route twice daily fluticasone (FLONASE) 50 mcg/actuation nasal spray fluticasone propionate 50 mcg/actuation nasal spray,suspension instill 1 spray into each nostril twice a day Active Comment on above: fluticasone propiona te 50 mcg/actuation nasal spray,suspension instill 1 spray into each nostril twice a day FREESTYLE JUSTICE 2 SENSOR kit (20 sources) Start: 02-02-20 FREESTYLE JUSTICE 2 SENSOR kit apply 1 SENSOR to back OF UPPER ARM REMOVE AND REPLACE every 14 d... (REFER TO PRESCRIPTION NOTES). 02/01/2022 Active Start: 02-01-2022 FREESTYLE LIBR E 2 SENSOR kit apply 1 SENSOR to back OF UPPER ARM REMOVE AND REPLACE every 14 d... (REFER TO PRESCRIPTION NOTES). 0 02/01/2022 Active Comment on above: apply 1 SENSOR to ba ck OF UPPER ARM REMOVE AND REPLACE every 14 d... (REFER TO PRESCRIPTION NOTES). Furosemide (1 source) Loop Diuretic furosemide (LASI X ORAL) Take by mouth. 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 insulin Start: 04-10-2024 Insulin Glargi ne (Lantus Solostar U-100 Insulin) 100 unit/mL (3 mL) insulin pen Active 45 U SC AT BEDTIME April 10, 2024 12:28pm Start: 07-11-2023 End: 04-10-2024 Insulin Glargine (Lantus Annie ostar U-100 Insulin) 100 unit/mL (3 mL) insulin pen Discontinued 37 U SC AT BEDTIME July 11, 2023 12:00am April 10, 2024 12:29pm Start: 04-13-2023 End: 07-11-2023 Insulin Glargine (Lantus Annie ostar U-100 Insulin) 100 unit/mL (3 mL) insulin pen Discontinued 45 U SC EVERY MORNING 20 07April 13, 2023 1:00am July 11, 2023 11:45am Start: 07-04-2022 End: 04-13-2023 Insulin Glargine (Lantus U-1 00 Insulin) 100 unit/mL solution Discontinued 45 U SC AT BEDTIME 13.5 1 April 11, 2023 5:59pm April 13, 2023 4:35pm diabetes Start: 07-28-2020 insulin glargi ne (LANTUS SOLOSTAR U-100 INSULIN) 100 unit/mL (3 mL) Indications: Type 2 diabetes mellitus without complication, with long-term current use of insulin (HCC) Inject 40 Units subcutaneously daily at bedtime. 5 Pen 07/28/2020 Active Start: 05-06-2020 End: 02-02-2021 Insulin Glargine (Lantus U-1 00 Insulin) 100 unit/mL solution Discontinued 40 U SC AT BEDTIME May 06, 2020 3:14pm February 02, 2021 11:52am diabetes Start: 04-20-2020 End: 05-06-2020 Insulin Glargine (Lantus U-1 00 Insulin) 100 unit/mL solution Discontinued 30 U SC AT BEDTIME April 20, 2020 8:49am May 06, 2020 3:15pm Start: 10-30-2019 End: 04-20-2020 Insulin Glargine (Lantus U-1 00 Insulin) 100 unit/mL solution Discontinued 20 U SC AT BEDTIME October 30, 2019 12:00am April 20, 2020 8:54am Comment on above: Inject 40 Units subcutaneously daily at bedtime. 3 ml insulin lispro 100 unt/ml pen injector (11 sources) Insulin Analog Start: inject 4 [IU] by subcutaneous injection once daily at dinner HUMALOG KWIKPEN INSULIN 100 unit/mL Inject 4 Units subcutaneously daily with dinner. 01/16/2023 Active Start: 12-04-2022 End: 07-11-2023 Insulin Lispro (Humalog Kwik pen Insulin) 100 unit/mL insulin pen Discontinued 8 U SC THREE TIMES A DAY 15 December 04, 2022 12:00am July 11, 2023 11:44am plus sliding scale Comment on above: Inject 4 Units subcu taneously daily with dinner. levoFLOXacin 500 mg oral tablet (3 sources) Quinolone Antimicrobial Start: 02-03-20 take 500 mg by mouth once daily Levofloxacin Active 500 MG PO DAILY February 02, 2021 11:53am Magnesium (5 sources) Start: 05-07-19 Magnesium 250 mg tablet Active 400 mg PO TWICE A DAY May 07, 2023 12:00am Leg cramps Start: 05-07-2023 Magnesium 250 mg tablet Active 400 mg PO TWICE A DAY May 07, 2023 12:00am Start: 05-07-2023 take 250 mg by mouth once heladio y Magnesium Active 250 MG PO DAILY May 07, 2023 12:00am 24 hr metFORMIN hydrochloride 500 mg extended release oral tablet (20 sources) Biguanide Start: 07-11-2023 take 1 tablet by mouth once daily Metformin 500 mg tablet extended release 24 hr Active 500 mg PO DAILY July 11, 2023 12:00am Start: 07-28-2020 End: 08-15-2021 take 2 tablets by mouth twice daily at mealtime metFORMIN (GLUCOPHAGE) 500 mg tablet Indications: Type 2 diabetes mellitus without complication, with long-term current use of insulin (HCC) Take by mouth twice daily with meals. 0 07/28/2020 08/15/2021 Discontinued (Discontinued by another Health Care Provider) Start: 11-10-2019 End: 07-11-2023 take 1 tablet by mouth twice daily Metformin 1,000 mg tablet Discontinued 1000 mg PO TWICE A DAY 180 May 30, 2022 7:39am July 11, 2023 11:37am diabetes Start: 06-09-2017 End: 11-10-2019 Metformin 1,000 MG tablet Discontinued 500 mg PO TWICE A DAY 30 June 09, 2017 11:11am November 10, 2019 10:58am diabetes Start: 06-09-2017 End: 11-10-2019 take 500 mg by mouth twice daily Metformin Discontinued 500 MG PO TWICE A DAY June 09, 2017 11:11am November 10, 2019 10:58am Start: 09-17-2015 End: 06-09-2017 Metformin 1,000 MG tablet Discontinued 500 mg PO DAILY September 17, 2015 12:00am June 09, 2017 11:11am diabetes Start: 09-17-2015 End: 06-09-2017 take 500 mg by mouth once daily Metformin Discontinued 500 MG PO DAILY September 17, 2015 12:00am June 09, 2017 11:11am Comment on above: Take by mouth twice daily with meals. metformin 1,000 mg t ablet take 1 tablet by mouth twice a day Take 1,000 mg by liban th twice daily. MULTIVIT &MINERALS/FERROUS FUM (MULTI VITAMIN ORAL) (20 sources) MULTIVIT &MINERA LS/FERROUS FUM (MULTI VITAMIN ORAL) Take 1 tablet by mouth. Active MULTIVIT &MINERA LS/FERROUS FUM (MULTI VITAMIN ORAL) Take 1 tablet by mouth. 0 Active Comment on above: Take 1 tablet by liban th. Multivitamin With Folic Acid (14 sources) Start: 06-13-2013 take 1 tablet by mouth once daily Multivitamin With Folic Acid Active 1 TABLET PO DAILY June 13, 2013 10:05pm Start: 06-13-2013 take 1 tablet by liban th once daily Multivitamin With Folic Acid Active 1 TABLET PO DAILY June 12, 2013 11:00pm Start: 06-13-2013 take 1 tablet by liban th once daily Multivitamin With Folic Acid Active 1 TABLET PO DAILY June 13, 2013 12:00am Multivitamin With Folic Acid 1 TABLET tablet (4 sources) Start: 06-13-2013 take 1 tablet by mouth once daily Multivitamin With Folic Acid 1 TABLET tablet Active 1 {tbl} PO DAILY June 13, 2013 12:00am supplement Start: 06-13-2013 take 1 tablet by liban th once daily Multivitamin With Folic Acid 1 TABLET tablet Active 1 {tbl} PO DAILY June 13, 2013 12:00am multivitamin-ferrous fumarate-folic acid (SPECTRAVITE ULTRA WOMEN) (20 sources) Start: 06-10-2015 multivitamin-f errous fumarate-folic acid (SPECTRAVITE ULTRA WOMEN) 06/10/2015 Active Start: 06-10-2015 multivitamin-f errous fumarate-folic acid (SPECTRAVITE ULTRA WOMEN) nystatin [id number] unt/ml topical cream (19 sources) Polyene Antifungal Start: 04-25-2022 nystatin (MYCOSTATIN) cream 04/25/2022 Active omeprazole 40 mg delayed release oral capsule (5 sources) Proton Pump Inhibitor Start: 07-11-2023 take 1 capsule by mouth once daily Omeprazole 40 mg capsule,delayed release(DR/EC) Active 40 mg PO DAILY July 11, 2023 12:00am 24 hr oxybutynin chloride 10 mg extended release oral tablet (20 sources) Cholinergic Muscarinic Antagonist Start: 07-11-2023 take 1 tablet by mouth once daily Oxybutynin Chloride 10 mg tablet extended release 24hr Active 10 mg PO DAILY July 11, 2023 12:00am Start: 11-23-2021 take 1 tablet by liban th once daily oxybutynin XL (DITROPAN XL) 5 mg 24 hr tablet Take 5 mg by mouth once daily. 11/23/2021 Active Start: 07-26-2021 Oxybutynin Chl oride Active EACH PO July 26, 2021 12:00am Comment on above: Take 5 mg by mouth o nce daily. oxyCODONE 13.5 mg 12 hr extended release oral capsule, abuse-deterrent (20 sources) Opioid Agonist Start: 08-22-2022 End: 01-18-2023 take 1 capsule by mouth every twelve hours oxyCODONE myristate (XTAMPZA ER) 13.5 mg CSpT Indications: Spinal stenosis, lumbar region, without neurogenic claudication Take 1 capsule by mouth every 12 hours for 30 days. Do not start before January 19, 2023. 60 Each 01/19/2023 Active Start: 07-23-2022 End: 08-15-2022 oxyCODONE [...] 2022. 60 Each 0 01/18/2022 02/15/2022 Discontinued Start: 10-30-2019 End: 08-15-2021 take 1 capsule by mouth twice daily at mealtime Oxycodone Myristate (Xtampza Er) 13.5 mg cap,sprinkl,ER12hr(DONT CRUSH) Active 13.5 mg PO TWICE A DAY 0 July 26, 2021 12:00am must administer with a meal/food End: 08-15-2021 oxyCODONE myristate (XTAMPZA ER) 13.5 [...] or 0.5 mg (2 mg/3 mL) pen (2 sources) Start: 04-11-2023 OZEMPIC 0.25 mg or 0.5 mg (2 mg/3 mL) pen 0.25 mg. 04/11/2023 Active Start: 04-11-2023 inject 0.5 mg by sub cutaneous injection every week OZEMPIC 0.25 mg or 0.5 mg (2 mg/3 mL) pen INJECT 0.5 MG SUBCUTANEOUSLY ONCE WEEKLY 0 04/11/2023 Active Comment on above: INJECT 0.5 MG SUBCUT ANEOUSLY ONCE WEEKLY pravastatin sodium 80 mg oral tablet (20 sources) HMG-CoA Reductase Inhibitor Start: 06-14-19 take 1 tablet by mouth at bedtime Pravastatin 80 MG tablet Active 80 mg PO AT BEDTIME June 13, 2013 12:00am cholesterol End: 08-15-2021 take 2 tablets by mouth once daily at bedtime pravastatin 40 mg tablet Take 80 mg by mouth daily at bedtime. 0 08/15/2021 Discontinued (Discontinued by another Health Care Provider) Comment on above: Take 80 mg by mouth daily at bedtime. Take 80 mg by mouth. pregabalin 100 mg oral capsule (20 sources) Start: 07-28-2020 End: 07-26-2021 Pregabalin (LYRICA) 200 mg capsule Take 100 mg by mouth twice daily. 0 07/28/2020 07/26/2021 Discontinued Start: 05-06-2020 End: 01-16-2023 take 1 capsule by mouth three times daily Pregabalin 100 mg capsule Active 100 mg PO THREE TIMES A DAY May 06, 2020 12:00am neuropathy Start: 10-30-2019 End: 05-06-2020 take 1 capsule by mouth twice daily Pregabalin (Lyrica) 200 mg capsule Discontinued 200 mg PO TWICE A DAY October 30, 2019 12:00am May 06, 2020 3:11pm Comment on above: Take 1 capsule by [...] 19, 2022. Take 1 capsule by mo ut three times a day for 30 days. Semaglutide (4 sources) Start: 07-11-2023 Semaglutide (Ozempic) 1 mg/dose (4 mg/3 mL) pen injector Active 1 mg SC WE July 11, 2023 12:00am Semaglutide (Ozempic) 2 mg/dose (8 mg/3 mL) pen injector (4 sources) Start: 04-10-2024 Semaglutide (Ozempic) 2 mg/dose (8 mg/3 mL) pen injector Active 2 mg SC EVERY WEEK April 10, 2024 1:00am tiZANidine 4 mg oral tablet (20 sources) Central alpha-2 Adrenergic Agonist Start: 02-02-2021 take 2 mg by mouth every eight hours Tizanidine Active 2 MG PO Q8H 0 February 02, 2021 11:52am Start: 01-31-2021 End: 02-02-2021 take 1 tablet by mouth every eight hours as needed Tizanidine 4 mg Tablet Discontinued 4 mg PO Q8H as needed for . January 31, 2021 1:00am February 02, 2021 11:52am Start: 06-13-2013 End: 10-30-2019 take 1 tablet by mouth three times daily as needed for muscle spasms Tizanidine 4 MG tablet Discontinued 4 mg PO THREE TIMES A DAY as needed for Spasms June 13, 2013 12:00am October 30, 2019 9:40am traZODone hydrochloride 50 mg oral tablet (4 sources) Serotonin Reuptake Inhibitor Start: 09-28-2023 take 1 tablet by mouth at bedtime Trazodone 50 mg tablet Active 50 mg PO AT BEDTIME September 28, 2023 12:00am Vitamin B Complex (14 sources) Start: 01-31-2021 take 1 capsule by mouth once daily Vitamin B Complex Active 1 CAP PO DAILY January 31, 2021 7:59pm Start: 01-31-2021 take 1 capsule by mo uth once daily Vitamin B Complex Active 1 CAP PO DAILY January 31, 2021 12:00am Start: 01-31-2021 take 1 capsule by mo uth once daily Vitamin B Complex Active 1 CAP PO DAILY January 31, 2021 1:00am Vitamin B Complex Capsule (4 sources) Start: 01-31-2021 Vitamin B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 supervisor (current) use of insulin; Translations: [assisted (current) use of insulin] Onset: 01-25-2024 Episodic Other gastrointestinal disorders (1 source) Dysphagia; Translations: [Dysphagia, unspecified] Onset: 05-12-2015 Resolved: 05-12-2015 05-12-2015 Episodic Other nervous system disorders (19 sources) Tremor; Translations: [Tremor, unspecified] Onset: 07-28-2020 Resolved: 05-17-2022 07-28-2020 Episodic Other non-traumatic joint disorders (18 sources) Disorder of joint of shoulder region; Translations: [Other specified joint disorders, right shoulder] Onset: 12-11-2017 Episodic Other non-traumatic joint disorders (2 sources) Arthropathy of right shoulder; Translations: [Other specified joint disorders, right shoulder] Onset: 12-11-2017 05-17-2022 Episodic Unclassified (6 sources) Contusion of left elbow, initial encounter 02-16-2023 Unclassified (1 source) Smoker; Translations: [Smoking] Onset: 04-14-2014 Resolved: 05-17-2022 05-17-2022 Results Test Name Value Interpretation Reference Range Facility CBC W/Diff, Automatedon 07-08 Absolute Lymph 1.32 X10 3/uL Normal 0.83-4.51 [facility] Comment on above: Performed By: #### L 502.0500, L503.6030, L501.9520, L506.0400, L503.6550, L501.25318, L100.0100 #### [facility] [address] [place], [address] Absolute Neut 2.0 X10 3/uL Normal 2.0-7.7 [facility] Comment on above: Performed By: #### L 502.0500, L503.6030, L501.9520, L506.0400, L503.6550, L501.41793, L100.0100 #### [facility] [address] [place], [address] Basophils/100 WBC (Bld) 0.5 % Normal 0-1 [facility] Comment on above: Performed By: #### L 502.0500, L503.6030, L501.9520, L506.0400, L503.6550, L501.29998, L100.0100 #### [facility] [address] [place], [address] Eosinophils/100 WBC (Bld) 2.8 % Normal 0-5 [facility] Comment on above: Performed By: #### L 502.0500, L503.6030, L501.9520, L506.0400, L503.6550, L501.63690, L100.0100 #### [facility] [address] [place], [address] Erythrocyte distribution width (RBC) [Ratio] 14.5 % Normal 11.6-14.6 [facility] Comment on above: Performed By: #### L 502.0500, L503.6030, L501.9520, L506.0400, L503.6550, L501.21020, L100.0100 #### [facility] [address] [place], [address] Hematocrit (Bld) [Volume fraction] 38.7 % Normal 37-47 [facility] Comment on above: Performed By: #### L 502.0500, L503.6030, L501.9520, L506.0400, L503.6550, L501.12111, L100.0100 #### [facility] [address] [place], [address] Hemoglobin (Bld) [Mass/Vol] 13.2 g/dL Normal 12.0-15.0 [facility] Comment on above: Performed By: #### L 502.0500, L503.6030, L501.9520, L506.0400, L503.6550, L501.31465, L100.0100 #### [facility] [address] [place], [address] IG% 0.300 Normal 0.0-0.9 [facility] Comment on above: Result Comment: IG% - Immature Granulocytes (promyelocytes, myelocytes and metamyelocytes) > 1% indicates that a LEFT SHIFT is Present. Performed By: #### L 502.0500, L503.6030, L501.9520, L506.0400, L503.6550, L501.09965, L100.0100 #### [facility] [address] [place], [address] Lymphocytes/100 WBC (Bld) 33.8 % Normal 19-41 [facility] Comment on above: Performed By: #### L 502.0500, L503.6030, L501.9520, L506.0400, L503.6550, L501.27696, L100.0100 #### [facility] [address] [place], [address] MCH (RBC) [Entitic mass] 32.1 pg High 27.0-32.0 [facility] Comment on above: Performed By: #### L 502.0500, L503.6030, L501.9520, L506.0400, L503.6550, L501.42731, L100.0100 #### [facility] [address] [place], [address] MCHC (RBC) [Mass/Vol] 34.1 g/dL Normal 32-36 [facility] Comment on above: Performed By: #### L 502.0500, L503.6030, L501.9520, L506.0400, L503.6550, L501.12384, L100.0100 #### [facility] [address] [place], [address] MCV (RBC) [Entitic vol] 94.2 fL Normal 81-99 [facility] Comment on above: Performed By: #### L 502.0500, L503.6030, L501.9520, L506.0400, L503.6550, L501.63806, L100.0100 #### [facility] [address] [place], [address] Monocytes/100 WBC (Bld) 10.7 % High 0-10 [facility] Comment on above: Performed By: #### L 502.0500, L503.6030, L501.9520, L506.0400, L503.6550, L501.45718, L100.0100 #### [facility] [address] [place], [address] Neutrophils/100 WBC (Bld) 51.9 % Normal 47-70 [facility] Comment on above: Performed By: #### L 502.0500, L503.6030, L501.9520, L506.0400, L503.6550, L501.81554, L100.0100 #### [facility] [address] [place], [address] Nucleated RBC (Bld) [#/Vol] 0 10*3/uL Normal 0-5 [facility] Comment on above: Performed By: #### L 502.0500, L503.6030, L501.9520, L506.0400, L503.6550, L501.00220, L100.0100 #### [facility] [address] [place], [address] Platelet mean volume (Bld) [Entitic vol] 10.7 fL Normal 6.2-12.0 [facility] Comment on above: Performed By: #### L 502.0500, L503.6030, L501.9520, L506.0400, L503.6550, L501.00421, L100.0100 #### [facility] [address] [place], [address] Platelets (Bld) [#/Vol] 132 10*3/uL Low 150-450 [facility] Comment on above: Performed By: #### L 502.0500, L503.6030, L501.9520, L506.0400, L503.6550, L501.24998, L100.0100 #### [facility] [address] [place], [address] RBC (Bld) [#/Vol] 4.11 10*6/uL Low 4.2-5.4 [facility] Comment on above: Performed By: #### L 502.0500, L503.6030, L501.9520, L506.0400, L503.6550, L501.61786, L100.0100 #### [facility] [address] [place], [address] RDW SD 49.1 fl High 35.1-43.9 [facility] Comment on above: Performed By: #### L 502.0500, L503.6030, L501.9520, L506.0400, L503.6550, L501.97947, L100.0100 #### [facility] [address] [place], [address] WBC (Bld) [#/Vol] 3.9 10*3/uL Low 4.4-11.0 [facility] Comment on above: Performed By: #### L 502.0500, L503.6030, L501.9520, L506.0400, L503.6550, L501.37231, L100.0100 #### [facility] [address] [place], [address] Ferritinon 08-04-2024 Ferritin [Mass/Vol] 112 ng/mL Normal 22-378 [facility] Comment on above: Performed By: #### L 502.0500, L503.6030, L501.9520, L506.0400, L503.6550, L501.57813, L100.0100 #### [facility] [address] [place], [address] Free T3on 08-04-2024 Free T3 [Mass/Vol] 3.2 pg/mL Normal 2.18-3.98 [facility] Comment on above: Performed By: #### L 502.0500, L503.6030, L501.9520, L506.0400, L503.6550, L501.95597, L100.0100 #### [facility] [address] [place], [address] Iron+Iron Binding Capacityon 08-04-2024 Iron [Mass/Vol] 86 ug/dL Normal 50-170 [facility] Comment on above: Performed By: #### L 502.0500, L503.6030, L501.9520, L506.0400, L503.6550, L501.65021, L100.0100 #### [facility] [address] [place], [place], [id number] IRON SATURATION 30.0 Normal 13-59 [facility] Comment on above: Performed By: #### L 502.0500, L503.6030, L501.9520, L506.0400, L503.6550, L501.66009, L100.0100 #### [facility] [address] [place], [address] TIBC 286 ug/dL Normal 250-450 [facility] Comment on above: Performed By: #### L 502.0500, L503.6030, L501.9520, L506.0400, L503.6550, L501.49973, L100.0100 #### [facility] [address] [place], [address] UIBC 200 ug/dL Low 228-428 [facility] Comment on above: Performed By: #### L 502.0500, L503.6030, L501.9520, L506.0400, L503.6550, L501.53295, L100.0100 #### [facility] [address] [place], [address] Microalbumin,Random Urineon 08-04-2024 MICROALBUMIN,UR < 12.0 Normal NO RANGE EST. [facility] Comment on above: Performed By: #### L 502.0500, L503.6030, L501.9520, L506.0400, L503.6550, L501.95047, L100.0100 #### [facility] [address] [place], [address] T4 Free Directon 08-04-2024 T4 FREE DIRECT 1.40 ng/dL Normal 0.76-1.46 [facility] Comment on above: Performed By: #### L 502.0500, L503.6030, L501.9520, L506.0400, L503.6550, L501.16694, L100.0100 ####[facility] [address] [place], [address] Thyroid Stim Hormone (TSH)on 08-04-2024 TSH 2.600 uIU/mL Normal 0.300-4.[address] [facility] Comment on above: Performed By: #### L 502.0500, L503.6030, L501.9520, L506.0400, L503.6550, L501.09117, L100.0100 #### [facility] [address] [place], [address] Absolute lymphocyte countOrd ered By: [facility] Angeles Pantoja on 07-29-2024 Lymphocytes Auto (Unsp spec) [#/Vol] 1.53 10*3/uL 0.83-4.51 [facility] Absolute neutrophil countOrd ered By: [facility] Angeles Pantoja on 07-29-2024 Neutrophils (Bld) [#/Vol] 1.9 10*3/uL Low 2.0-7.7 [facility] Anion gap in Serum or Plasma Ordered By: [facility] Angeles Pantoja on 07-29-2024 Anion gap [Moles/Vol] 15 mmol/L 5-15 [facility] Automated lymphocyte count a s percentage of total leukocytesOrdered By: [facility] Angeles Pantoja on 07-29-2024 Lymphocytes/100 WBC Auto (Unsp spec) 39.1 % - [facility] BUN/creatinine ratioOrdered By: [facility] on 07-29-2024 Urea nitrogen/Creatinine [Mass ratio] 11.5 mg/mg 10-20 [facility] Basophil percentageOrdered B y: [facility] Angeles Pantoja on 07-29-2024 Basophils/100 WBC (Bld) 0.5 % 0-1 [facility] Bilirubin, totalOrdered By: [facility] Angeles Pantoja on 07-29-2024 Bilirubin [Mass/Vol] 0.24 mg/dL 0.00-1.30 [facility] CBC W/Diff, Automatedon 07-07 Absolute Lymph 1.53 X10 3/uL Normal 0.83-4.51 [facility] Comment on above: Performed By: #### L 501.9520, L100.0100, L500.4050, L506.1001 ####[facility] [address] [place], [address] Absolute Neut 1.9 X10 3/uL Low 2.0-7.7 [facility] Comment on above: Performed By: #### L 501.9520, L100.0100, L500.4050, L506.1001 ####[facility] [address] [place], [address] Basophils/100 WBC (Bld) 0.5 % Normal 0-1 [facility] Comment on above: Performed By: #### L 501.9520, L100.0100, L500.4050, L506.1001 ####[facility] [address] [place], [address] Eosinophils/100 WBC (Bld) 2.3 % Normal 0-5 [facility] Comment on above: Performed By: #### L 501.9520, L100.0100, L500.4050, L506.1001 ####[facility] [address] [place], [address] Erythrocyte distribution width (RBC) [Ratio] 13.9 % Normal 11.6-14.6 [facility] Comment on above: Performed By: #### L 501.9520, L100.0100, L500.4050, L506.1001 ####[facility] [address] [place], [address] Hematocrit (Bld) [Volume fraction] 39.5 % Normal 37-47 [facility] Comment on above: Performed By: #### L 501.9520, L100.0100, L500.4050, L506.1001 ####[facility] [address] [place], [address] Hemoglobin (Bld) [Mass/Vol] 13.4 g/dL Normal 12.0-15.0 [facility] Comment on above: Performed By: #### L 501.9520, L100.0100, L500.4050, L506.1001 ####[facility] [address] [place], [address] IG% 0.300 Normal 0.0-0.9 [facility] Comment on above: Result Comment: IG% - Immature Granulocytes (promyelocytes, myelocytes and metamyelocytes) > 1% indicates that a LEFT SHIFT is Present. Performed By: #### L 501.9520, L100.0100, L500.4050, L506.1001 ####[facility] [address] [place], [address] Lymphocytes/100 WBC (Bld) 39.1 % Normal 19-41 [facility] Comment on above: Performed By: #### L 501.9520, L100.0100, L500.4050, L506.1001 ####[facility] [address] [place], [address] MCH (RBC) [Entitic mass] 32.3 pg High 27.0-32.0 [facility] Comment on above: Performed By: #### L 501.9520, L100.0100, L500.4050, L506.1001 ####[facility] [address] [place], [address] MCHC (RBC) [Mass/Vol] 33.9 g/dL Normal 32-36 [facility] Comment on above: Performed By: #### L 501.9520, L100.0100, L500.4050, L506.1001 ####[facility] [address] [place], [address] MCV (RBC) [Entitic vol] 95.2 fL Normal 81-99 [facility] Comment on above: Performed By: #### L 501.9520, L100.0100, L500.4050, L506.1001 ####[facility] [address] [place], [address] Monocytes/100 WBC (Bld) 9.2 % Normal 0-10 [facility] Comment on above: Performed By: #### L 501.9520, L100.0100, L500.4050, L506.1001 ####[facility] [address] [place], [address] Neutrophils/100 WBC (Bld) 48.6 % Normal 47-70 [facility] Comment on above: Performed By: #### L 501.9520, L100.0100, L500.4050, L506.1001 ####[facility] [address] [place], [address] Nucleated RBC (Bld) [#/Vol] 0 10*3/uL Normal 0-5 [facility] Comment on above: Performed By: #### L 501.9520, L100.0100, L500.4050, L506.1001 ####[facility] [address] [place], [address] Platelet mean volume (Bld) [Entitic vol] 10.6 fL Normal 6.2-12.0 [facility] Comment on above: Performed By: #### L 501.9520, L100.0100, L500.4050, L506.1001 ####[facility] [address] [place], [address] Platelets (Bld) [#/Vol] 131 10*3/uL Low 150-450 [facility] Comment on above: Performed By: #### L 501.9520, L100.0100, L500.4050, L506.1001 ####[facility] [address] [place], [address] RBC (Bld) [#/Vol] 4.15 10*6/uL Low 4.2-5.4 [facility] Comment on above: Performed By: #### L 501.9520, L100.0100, L500.4050, L506.1001 ####[facility] [address] [place], [address] RDW SD 46.6 fl High 35.1-43.9 [facility] Comment on above: Performed By: #### L 501.9520, L100.0100, L500.4050, L506.1001 ####[facility] [address] [place], [address] WBC (Bld) [#/Vol] 3.9 10*3/uL Low 4.4-11.0 [facility] Comment on above: Performed By: #### L 501.9520, L100.0100, L500.4050, L506.1001 ####[facility] [address] [place], [address] Carbon dioxide, total [Moles /volume] in Central venous bloodOrdered By: [facility] Angeles Pantoja on 07-29-2024 CO2 [Moles/Vol] 24.7 mmol/L 21.0-32.0 [facility] Chloride assayOrdered By: [facility] Angeles Pantoja on 07-29-2024 Chloride [Moles/Vol] 99 mmol/L 98-108 [facility] Comprehensive Metabolic Prof ilon 07-29-2024 Albumin [Mass/Vol] 3.8 g/dL Normal 3.4-4.8 [facility] Comment on above: Performed By: #### L 501.9520, L100.0100, L500.4050, L506.1001 ####[facility] [address] [place], [address] Albumin/Globulin [Mass ratio] 1.1 {ratio} Normal 0.9-2.4 [facility] Comment on above: Performed By: #### L 501.9520, L100.0100, L500.4050, L506.1001 ####[facility] [address] [place], [address] ALK PHOS 34 U/L Low 35-104 [facility] Comment on above: Performed By: #### L 501.9520, L100.0100, L500.4050, L506.1001 ####[facility] [address] [place], [address] ALT [Catalytic activity/Vol] 39 U/L High <=34 [facility] Comment on above: Performed By: #### L 501.9520, L100.0100, L500.4050, L506.1001 ####[facility] [address] [place], [address] AST [Catalytic activity/Vol] 56 U/L High <=31 [facility] Comment on above: Performed By: #### L 501.9520, L100.0100, L500.4050, L506.1001 ####[facility] [address] [place], [address] Bilirubin [Mass/Vol] 0.24 mg/dL Normal 0.00-1.30 [facility] Comment on above: Performed By: #### L 501.9520, L100.0100, L500.4050, L506.1001 ####[facility] [address] [place], [address] BUN/CRE 11.5 RATIO Normal 10-20 [facility] Comment on above: Performed By: #### L 501.9520, L100.0100, L500.4050, L506.1001 ####[facility] [address] [place], [address] Calcium [Mass/Vol] 11.0 mg/dL Normal 7.6-11.0 [facility] Comment on above: Performed By: #### L 501.9520, L100.0100, L500.4050, L506.1001 ####[facility] [address] [place], [address] Chloride [Moles/Vol] 99 mmol/L Normal 98-108 [facility] Comment on above: Performed By: #### L 501.9520, L100.0100, L500.4050, L506.1001 ####[facility] [address] [place], [address] CO2 [Moles/Vol] 24.7 mmol/L Normal 21.0-32.0 [facility] Comment on above: Performed By: #### L 501.9520, L100.0100, L500.4050, L506.1001 ####[facility] [address] [place], [address] Creatinine [Mass/Vol] 1.01 mg/dL Normal 0.70-1.20 [facility] Comment on above: Performed By: #### L 501.9520, L100.0100, L500.4050, L506.1001 ####[facility] [address] [place], [address] GAP 15 Normal 5-15 [facility] Comment on above: Performed By: #### L 501.9520, L100.0100, L500.4050, L506.1001 ####[facility] [address] [place], [address] GFR/1.73 sq M.predicted among non-blacks MDRD (S/P/Bld) [Vol rate/Area] 62 mL/min/{1.73_m2} Normal >60 [facility] Comment on above: Result Comment: mL/m in/1.73m2 CKD-EPI Creatinine Equation (2020) Performed By: #### L 501.9520, L100.0100, L500.4050, L506.1001 ####[facility] [address] [place], [address] Globulin (S) [Mass/Vol] 3.4 g/dL Normal 2.2-4.2 [facility] Comment on above: Performed By: #### L 501.9520, L100.0100, L500.4050, L506.1001 ####[facility] [address] [place], [address] Glucose [Mass/Vol] 203 mg/dL High 70-99 [facility] Comment on above: Performed By: #### L 501.9520, L100.0100, L500.4050, L506.1001 ####[facility] [address] [place], [address] Potassium [Moles/Vol] 4.2 mmol/L Normal 3.3-5.1 [facility] Comment on above: Performed By: #### L 501.9520, L100.0100, L500.4050, L506.1001 ####[facility] [address] [place], [address] Sodium [Moles/Vol] 139 mmol/L Normal 133-145 [facility] Comment on above: Performed By: #### L 501.9520, L100.0100, L500.4050, L506.1001 ####[facility] [address] [place], [address] T PROT 7.2 g/dL Normal 5.9-8.4 [facility] Comment on above: Performed By: #### L 501.9520, L100.0100, L500.4050, L506.1001 ####[facility] [address] [place], [address] Urea nitrogen [Mass/Vol] 12 mg/dL Normal 4-19 [facility] Comment on above: Performed By: #### L 501.9520, L100.0100, L500.4050, L506.1001 ####[facility] [address] [place], [address] Eosinophil percentageOrdered By: [facility] Angeles Pantoja on 07-29-2024 Eosinophils/100 WBC (Bld) 2.3 % 0-5 [facility] Erythrocyte distribution wid th ratioOrdered By: [facility] Angeles Pantoja on 07-29-2024 Erythrocyte distribution width (RBC) [Ratio] 13.9 % 11.6-14.6 [facility] Erythrocyte distribution wid th standard deviationOrdered By: [facility] Angeles Pantoja on 07-29-2024 Erythrocyte distribution width (RBC) [Ratio] 46.6 fl High 35.1-43.9 [facility] Glomerular filtration rate ( GFR) estimation/1.73 sq m using serum, plasma, or whole bOrdered By: [facility] Angeles Pantoja on 07-29-2024 GFR/1.73 sq M.predicted among non-blacks MDRD (S/P/Bld) [Vol rate/Area] 62 mL/min/{1.73_m2} >60 [facility] Comment on above: mL/min/1.73m2 CKD-EP I Creatinine Equation (2020) Hematocrit Auto (Bld) [Volum e fraction]Ordered By: [facility] Angeles Pantoja on 07-29-2024 Hematocrit (Bld) [Volume fraction] 39.5 % 37-47 [facility] Hemoglobin measurementOrdere d By: [facility] Angeles Pantoja on 07-29-2024 Hemoglobin (Bld) [Mass/Vol] 13.4 g/dL 12.0-15.0 [facility] Immature granulocytes/100 WB C Auto (Bld)Ordered By: [facility] Angeles Pantoja on 07-29-2024 Immature granulocytes/100 WBC (Bld) 0.300 % 0.0-0.9 [facility] Comment on above: IG% - Immature Granu locytes (promyelocytes, myelocytes and metamyelocytes) > 1% indicates that a LEFT SHIFT is Present. Laboratory - Chemistry and C hemistry - challengeOrdered By: [facility] Angeles Pantoja on 07-29-2024 AST [Catalytic activity/Vol] 56 U/L High <32 [facility] MCV (mean corpuscular volume ) determinationOrdered By: [facility] Angeles Pantoja on 07-29-2024 MCV (RBC) [Entitic vol] 95.2 fL 81-99 [facility] Mean corpuscular hemoglobin (MCH) determinationOrdered By: [facility] Angeles Pantoja on 07-29-2024 MCH (RBC) [Entitic mass] 32.3 pg High 27.0-32.0 [facility] Mean corpuscular hemoglobin concentration (MCHC) determinationOrdered By: [facility] Angeles Pantoja on 07-29-2024 MCHC (RBC) [Mass/Vol] 33.9 g/dL 32-36 [facility] Mean platelet volume determi nationOrdered By: [facility] Angelesfarideh Pantoja on 07-29-2024 Platelet mean volume (Bld) [Entitic vol] 10.6 fL 6.2-12.0 [facility] Monocyte percentageOrdered B y: [facility] Angeles Pantoja on 07-29-2024 Monocytes/100 WBC (Bld) 9.2 % 0-10 [facility] Neutrophil percentageOrdered By: [facility] Angeles Pantoja on 07-29-2024 Neutrophils/100 WBC (Bld) 48.6 % 47-70 [facility] Nucleated red blood cell per centageOrdered By: [facility] Angeles Pantoja on 07-29-2024 Nucleated RBC/100 WBC (Bld) [Ratio] 0 % 0-5 [facility] Platelet countOrdered By: [facility] Angeles Pantoja on 07-29-2024 Platelets (Bld) [#/Vol] 131 10*3/uL Low 150-450 [facility] Potassium measurement (mass/ volume)Ordered By: [facility] Angeles Pantoja on 07-29-2024 Potassium (Unsp spec) [Mass/Vol] 4.2 mmol/L 3.3-5.1 [facility] RBC Auto (Bld) [#/Vol]Ordere d By: [facility] Angeles Pantoja on 07-29-2024 RBC (Bld) [#/Vol] 4.15 10*6/uL Low 4.2-5.4 [facility] Serum creatinine measurement (mass/volume)Ordered By: [facility] Angeles Pantoja on 07-29-2024 Creatinine [Mass/Vol] 1.01 mg/dL 0.70-1.20 [facility] Serum globulin measurementOr dered By: [facility] [facility] Angeles Pantoja on 07-29-2024 Globulin (S) [Mass/Vol] 3.4 g/dL 2.2-4.2 [facility] Serum glucose measurement (m ass/volume)Ordered By: [facility] Angeles Pantoja on 07-29-2024 Glucose [Mass/Vol] 203 mg/dL High 70-99 [facility] Serum or plasma alanine clifton otransferase (ALT) measurementOrdered By: [facility] Angeles Pantoja on 07-29-2024 ALT [Catalytic activity/Vol] 39 U/L High <35 [facility] Serum or plasma albumin jesus urement (mass/volume)Ordered By: [facility] Angeles Pantoja on 07-29-2024 Albumin [Mass/Vol] 3.8 g/dL 3.4-4.8 [facility] Serum or plasma albumin/glob ulin mass ratioOrdered By: [facility] Angeles Pantoja on 07-29-2024 Albumin/Globulin [Mass ratio] 1.1 {ratio} 0.9-2.4 [facility] Serum or plasma alkaline riri sphatase measurementOrdered By: [facility] Angeles Pantoja on 07-29-2024 ALP [Catalytic activity/Vol] 34 U/L Low 35-104 [facility] Serum or plasma calcium jesus urement (mass/volume)Ordered By: [facility] Angeles Pantoja on 07-29-2024 Calcium [Mass/Vol] 11.0 mg/dL 7.6-11.0 [facility] Serum or plasma urea nitroge n measurement (mass/volume)Ordered By: [facility] Angeles Pantoja on 07-29-2024 Urea nitrogen [Mass/Vol] 12 mg/dL 4-19 [facility] Sodium levelOrdered By: [facility] Angeles Pantoja on 07-29-2024 Sodium [Moles/Vol] 139 mmol/L 133-145 [facility] TSH DL <= 0.005 mIU/L QnOrde red By: [facility] Angeles Pantoja on 07-29-2024 TSH Qn 4.460 uIU/mL High 0.300-4.[address] [facility] Thyroid Stim Hormone (TSH)on 07-29-2024 TSH 4.460 uIU/mL High 0.300-4.[address] [facility] Comment on above: Performed By: #### L 501.9520, L100.0100, L500.4050, L506.1001 ####[facility] [address] [place], [place], [id number] Total proteinOrdered By: [facility] Angeles Pantoja on 07-29-2024 Protein [Mass/Vol] 7.2 g/dL 5.9-8.4 [facility] Vitamin D,25 Hydroxyon 07-29 Vitamin D 25-OH 59.4 ng/mL Normal 30-100 [facility] Comment on above: Result Comment: Sumaya min D Status Deficiency: <20 ng/mL (50nmol/L) Insufficiency: 20-30 ng/mL (50-75 nmol/L) Sufficiency: 30-100 ng/mL (75-250 nmol/L) Toxicity: >100 ng/mL (>250 nmol/L) Performed By: #### L 501.9520, L100.0100, L500.4050, L506.1001 ####[facility] [address] [place], [address] White blood cell (WBC) count Ordered By: [facility] Angeles aPntoja on 07-29-2024 WBC (Bld) [#/Vol] 3.9 10*3/uL Low 4.4-11.0 [facility] Abd Inc Decub and/or Erecton 05-22-2024 [employer] Decub and/or Erect [facility] [address] [place] [address] [employer] Decub and/or Erect MR#: [id number] Acct: [id number] Name: ESTELA KENNEY Rep #: [id number] : 1960 F 63 From: Morris addison MD PCP: Angeles Pantoja [facility], BLOOD BANK LABORATORY TECHNICIAN-C Status: REG CLI Study: Abd Inc Decub and/or Erect Date of Exam: 05/22 Exam# [id number] Ordering Dr: Emmett Mathias [facility] BLOOD BANK LABORATORY TECHNICIAN- C PROCEDURE: ABD INC DECUB AND/OR ERECT 05/22/2024 REASON FOR EXAM: UNSPECIFIED ABDOMINAL PAIN TECHNIQUE: Single view abdomen. COMPARISON: CT scan on 02/23/2018. FINDINGS: Moderate amount of fecal residue in the large bowels. Metallic clips are noted in the right upper quadrant. Normal visualized lung bases. There is an unremarkable bowel gas pattern. There is no demonstrated free abdominal air. Normal visualized liver. Normal visualized spleen. Suspected bilateral tiny renal stones with the largest measuring 3 mm. The soft tissue structures of the pelvis are unremarkable. Moderate diffuse spondylosis. Unremarkable spinal fusion metallic hardware. RAD/Abd Inc Decub and/or Erect IMPRESSION: Moderate amount of fecal residue in the large bowels. Reading Location: [place] [address] CC: [facility] BLOOD BANK LABORATORY TECHNICIAN-C Angeles Pantoja; Emmett [facility] BLOOD BANK LABORATORY TECHNICIAN-Jack Beam Evening Or Night Nurse Supervisor: Signed Normal [facility] Absolute lymphocyte countOrd ered By: [facility] Angeles Pantoja on 05-14-2024 Lymphocytes Auto (Unsp spec) [#/Vol] 2.60 10*3/uL 0.83-4.51 [facility] Absolute neutrophil countOrd ered By: [facility] Angeles Pantoja on 05-14-2024 Neutrophils (Bld) [#/Vol] 4.0 10*3/uL 2.0-7.7 [facility] Anion gap in Serum or Plasma Ordered By: [facility] Angeles Pantoja on 05-14-2024 Anion gap [Moles/Vol] 17 mmol/L High 5-15 [facility] Automated lymphocyte count a s percentage of total leukocytesOrdered By: [facility] Angeles Pantoja on 05-14-2024 Lymphocytes/100 WBC Auto (Unsp spec) 34.3 % 19-41 [facility] BUN/creatinine ratioOrdered By: [facility] Angeles Pantoja on 05-14-2024 Urea nitrogen/Creatinine [Mass ratio] 14.1 mg/mg 10-20 [facility] Basophil percentageOrdered B y: [facility] Angeles Pantoja on 05-14-2024 Basophils/100 WBC (Bld) 0.8 % 0-1 [facility] Bilirubin, totalOrdered By: [facility] Angeles Pantoja on 05-14-2024 Bilirubin [Mass/Vol] 0.55 mg/dL 0.00-1.30 [facility] CBC W/Diff, Automatedon Absolute Lymph 2.60 X10 3/uL Normal 0.83-4.51 [facility] Comment on above: Performed By: #### L 500.4050, L501.2450, L100.0100 ####[facility] [address] [place], [address] Absolute Neut 4.0 X10 3/uL Normal 2.0-7.7 [facility] Comment on above: Performed By: #### L 500.4050, L501.2450, L100.0100 ####[facility] [address] [place], [address] Basophils/100 WBC (Bld) 0.8 % Normal 0-1 [facility] Comment on above: Performed By: #### L 500.4050, L501.2450, L100.0100 ####[facility] [address] [place], [address] Eosinophils/100 WBC (Bld) 3.2 % Normal 0-5 [facility] Comment on above: Performed By: #### L 500.4050, L501.2450, L100.0100 ####[facility] [address] [place], [address] Erythrocyte distribution width (RBC) [Ratio] 14.6 % Normal 11.6-14.6 [facility] Comment on above: Performed By: #### L 500.4050, L501.2450, L100.0100 ####[facility] [address] [place], [address] Hematocrit (Bld) [Volume fraction] 44.2 % Normal 37-47 [facility] Comment on above: Performed By: #### L 500.4050, L501.2450, L100.0100 ####[facility] [address] [place], [address] Hemoglobin (Bld) [Mass/Vol] 15.0 g/dL Normal 12.0-15.0 [facility] Comment on above: Performed By: #### L 500.4050, L501.2450, L100.0100 ####[facility] [address] [place], [address] IG% 0.100 Normal 0.0-0.9 [facility] Comment on above: Result Comment: IG% - Immature Granulocytes (promyelocytes, myelocytes and metamyelocytes) > 1% indicates that a LEFT SHIFT is Present. Performed By: #### L 500.4050, L501.2450, L100.0100 ####[facility] [address] [place], [address] Lymphocytes/100 WBC (Bld) 34.3 % Normal 19-41 [facility] Comment on above: Performed By: #### L 500.4050, L501.2450, L100.0100 ####[facility] [address] [place], [address] MCH (RBC) [Entitic mass] 32.9 pg High 27.0-32.0 [facility] Comment on above: Performed By: #### L 500.4050, L501.2450, L100.0100 ####[facility] [address] [place], [address] MCHC (RBC) [Mass/Vol] 33.9 g/dL Normal 32-36 [facility] Comment on above: Performed By: #### L 500.4050, L501.2450, L100.0100 ####[facility] [address] [place], [address] MCV (RBC) [Entitic vol] 96.9 fL Normal 81-99 [facility] Comment on above: Performed By: #### L 500.4050, L501.2450, L100.0100 ####[facility] [address] [place], [address] Monocytes/100 WBC (Bld) 9.6 % Normal 0-10 [facility] Comment on above: Performed By: #### L 500.4050, L501.2450, L100.0100 ####[facility] [address] [place], [address] Neutrophils/100 WBC (Bld) 52.0 % Normal 47-70 [facility] Comment on above: Performed By: #### L 500.4050, L501.2450, L100.0100 ####[facility] [address] [place], [address] Nucleated RBC (Bld) [#/Vol] 0 10*3/uL Normal 0-5 [facility] Comment on above: Performed By: #### L 500.4050, L501.2450, L100.0100 ####[facility] [address] [place], [address] Platelet mean volume (Bld) [Entitic vol] 10.2 fL Normal 6.2-12.0 [facility] Comment on above: Performed By: #### L 500.4050, L501.2450, L100.0100 ####[facility] [address] [place], [address] Platelets (Bld) [#/Vol] 196 10*3/uL Normal 150-450 [facility] Comment on above: Performed By: #### L 500.4050, L501.2450, L100.0100 ####[facility] [address] [place], [address] RBC (Bld) [#/Vol] 4.56 10*6/uL Normal 4.2-5.4 [facility] Comment on above: Performed By: #### L 500.4050, L501.2450, L100.0100 ####[facility] [address] [place], [address] RDW SD 52.6 fl High 35.1-43.9 [facility] Comment on above: Performed By: #### L 500.4050, L501.2450, L100.0100 ####[facility] [address] [place], [address] WBC (Bld) [#/Vol] 7.6 10*3/uL Normal 4.4-11.0 [facility] Comment on above: Performed By: #### L 500.4050, L501.2450, L100.0100 ####[facility] [address] [place], [address] Carbon dioxide, total [Moles /volume] in Central venous bloodOrdered By: [facility] Angeles Pantoja on 05-14-2024 CO2 [Moles/Vol] 22.2 mmol/L 21.0-32.0 [facility] Chloride assayOrdered By: [facility] Angeles Pantoja on 05-14-2024 Chloride [Moles/Vol] 99 mmol/L 98-108 [facility] Comprehensive Metabolic Prof ilon 05-14-2024 Albumin [Mass/Vol] 4.2 g/dL Normal 3.4-4.8 [facility] Comment on above: Performed By: #### L 500.4050, L501.2450, L100.0100 ####[facility] [address] [place], [address] Albumin/Globulin [Mass ratio] 1.1 {ratio} Normal 0.9-2.4 [facility] Comment on above: Performed By: #### L 500.4050, L501.2450, L100.0100 ####[facility] [address] [place], [address] ALK PHOS 36 U/L Normal 35-104 [facility] Comment on above: Performed By: #### L 500.4050, L501.2450, L100.0100 ####[facility] [address] [place], [address] ALT [Catalytic activity/Vol] 30 U/L Normal <=34 [facility] Comment on above: Performed By: #### L 500.4050, L501.2450, L100.0100 ####[facility] [address] [place], [address] AST [Catalytic activity/Vol] 29 U/L Normal <=31 [facility] Comment on above: Performed By: #### L 500.4050, L501.2450, L100.0100 ####[facility] [address] [place], [address] Bilirubin [Mass/Vol] 0.55 mg/dL Normal 0.00-1.30 [facility] Comment on above: Performed By: #### L 500.4050, L501.2450, L100.0100 ####[facility] [address] [place], [address] BUN/CRE 14.1 RATIO Normal 10-20 [facility] Comment on above: Performed By: #### L 500.4050, L501.2450, L100.0100 ####[facility] [address] [place], [address] Calcium [Mass/Vol] 11.3 mg/dL High 7.6-11.0 [facility] Comment on above: Performed By: #### L 500.4050, L501.2450, L100.0100 ####[facility] [address] [place], [address] Chloride [Moles/Vol] 99 mmol/L Normal 98-108 [facility] Comment on above: Performed By: #### L 500.4050, L501.2450, L100.0100 ####[facility] [address] [place], [address] CO2 [Moles/Vol] 22.2 mmol/L Normal 21.0-32.0 [facility] Comment on above: Performed By: #### L 500.4050, L501.2450, L100.0100 ####[facility] [address] [place], [address] Creatinine [Mass/Vol] 1.07 mg/dL Normal 0.70-1.20 [facility] Comment on above: Performed By: #### L 500.4050, L501.2450, L100.0100 ####[facility] [address] [place], [address] GAP 17 High 5-15 [facility] Comment on above: Performed By: #### L 500.4050, L501.2450, L100.0100 ####[facility] [address] [place], [address] GFR/1.73 sq M.predicted among non-blacks MDRD (S/P/Bld) [Vol rate/Area] 58 mL/min/{1.73_m2} Low >60 [facility] Comment on above: Result Comment: mL/m in/1.73m2 CKD-EPI Creatinine Equation (2020) Performed By: #### L 500.4050, L501.2450, L100.0100 ####[facility] [address] [place], [address] Globulin (S) [Mass/Vol] 4.0 g/dL Normal 2.2-4.2 [facility] Comment on above: Performed By: #### L 500.4050, L501.2450, L100.0100 ####[facility] [address] [place], [address] Glucose [Mass/Vol] 209 mg/dL High 70-99 [facility] Comment on above: Performed By: #### L 500.4050, L501.2450, L100.0100 ####[facility] [address] [place], [address] Potassium [Moles/Vol] 4.0 mmol/L Normal 3.3-5.1 [facility] Comment on above: Performed By: #### L 500.4050, L501.2450, L100.0100 ####[facility] [address] [place], [address] Sodium [Moles/Vol] 139 mmol/L Normal 133-145 [facility] Comment on above: Performed By: #### L 500.4050, L501.2450, L100.0100 ####[facility] [address] [place], [address] T PROT 8.2 g/dL Normal 5.9-8.4 [facility] Comment on above: Performed By: #### L 500.4050, L501.2450, L100.0100 ####[facility] [address] [place], [address] Urea nitrogen [Mass/Vol] 15 mg/dL Normal 4-19 [facility] Comment on above: Performed By: #### L 500.4050, L501.2450, L100.0100 ####[facility] [address] [place], [address] Eosinophil percentageOrdered By: [facility] Angeles Pantoja on 05-14-2024 Eosinophils/100 WBC (Bld) 3.2 % 0-5 [facility] Erythrocyte distribution wid th (RBC) [Ratio]Ordered By: [facility] Angeles Pantoja on 05-14-2024 Erythrocyte distribution width (RBC) [Entitic vol] 52.6 fL High 35.1-43.9 [facility] Erythrocyte distribution wid th ratioOrdered By: [facility] Angeles Pantoja on 05-14-2024 Erythrocyte distribution width (RBC) [Ratio] 14.6 % 11.6-14.6 [facility] Erythrocyte distribution wid th standard deviationOrdered By: [facility] Angeles Pantoja on 05-14-2024 Erythrocyte distribution width (RBC) [Ratio] 52.6 fl High 35.1-43.9 [facility] GFR/1.73 sq M.predicted adan g non-blacks MDRD (S/P/Bld) [Vol rate/Area]Ordered By: [facility] Angeles Pantoja on 05-14-2024 Estimated GFR (MDRD) Non-Af Amer 58 Low >60 [facility] Comment on above: mL/min/1.73m2 CKD-EP I Creatinine Equation (2020) Glomerular filtration rate ( GFR) estimation/1.73 sq m using serum, plasma, or whole bOrdered By: [facility] Angeles Pantoja on 05-14-2024 GFR/1.73 sq M.predicted among non-blacks MDRD (S/P/Bld) [Vol rate/Area] 58 mL/min/{1.73_m2} Low >60 [facility] Comment on above: mL/min/1.73m2 CKD-EP I Creatinine Equation (2020) Hematocrit Auto (Bld) [Volum e fraction]Ordered By: [facility] Angeles Pantoja on 05-14-2024 Hematocrit (Bld) [Volume fraction] 44.2 % 37-47 [facility] Hemoglobin measurementOrdere d By: [facility] Angeles Pantoja on 05-14-2024 Hemoglobin (Bld) [Mass/Vol] 15.0 g/dL 12.0-15.0 [facility] Immature granulocytes/100 WB C Auto (Bld)Ordered By: [facility] Angeles Pantoja on 05-14-2024 Immature granulocytes/100 WBC (Bld) 0.100 % 0.0-0.9 [facility] Comment on above: IG% - Immature Granu locytes (promyelocytes, myelocytes and metamyelocytes) > 1% indicates that a LEFT SHIFT is Present. Laboratory - Chemistry and C hemistry - challengeOrdered By: [facility] Angeles Pantoja on 05-14-2024 AST [Catalytic activity/Vol] 29 U/L <32 [facility] Lipaseon 05-14-2024 Lipase [Catalytic activity/Vol] 56 U/L Normal 13-75 [facility] Comment on above: Result Comment: Lia goff note: LIPASE revised reference range effective 22. New Lipase methodology. Expected to produce lower values than the previous assay method. NEW Reference Range: 13 - 75 U/L Performed By: #### L 500.4050, L501.2450, L100.0100 ####[facility] [address] [place], [address] Lipase measurementOrdered By : [facility] Angeles Pantoja on 05-14-2024 Lipase [Catalytic activity/Vol] 56 U/L 13-75 [facility] Comment on above: Please note:LIPASE r evised reference range effective 22. New Lipase methodology. Expected to produce lower values than the previous assay method. NEW Reference Range: 13 - 75 U/L Lymphocytes Auto (Unsp spec) [#/Vol]Ordered By: [facility] Angeles Pantoja on 05-14-2024 Lymphocytes (Bld) [#/Vol] 2.60 10*3/uL 0.83-4.51 [facility] Lymphocytes/100 WBC Auto (Un sp spec)Ordered By: [facility] Angeles Pantoja on 05-14-2024 Lymphocytes/100 WBC (Bld) 34.3 % 19-41 [facility] MCV (mean corpuscular volume ) determinationOrdered By: [facility] Angeles Pantoja on 05-14-2024 MCV (RBC) [Entitic vol] 96.9 fL 81-99 [facility] Mean corpuscular hemoglobin (MCH) determinationOrdered By: [facility] Pantoja on 05-14-2024 MCH (RBC) [Entitic mass] 32.9 pg High 27.0-32.0 [facility] Mean corpuscular hemoglobin concentration (MCHC) determinationOrdered By: [facility] Angeles Pantoja on 05-14-2024 MCHC (RBC) [Mass/Vol] 33.9 g/dL 32-36 [facility] Mean platelet volume determi nationOrdered By: [facility] Angeles Pantoja on 05-14-2024 Platelet mean volume (Bld) [Entitic vol] 10.2 fL 6.2-12.0 [facility] Monocyte percentageOrdered B y: [facility] Angeles Pantoja on 05-14-2024 Monocytes/100 WBC (Bld) 9.6 % 0-10 [facility] Neutrophil percentageOrdered By: [facility] Angeles Pantoja on 05-14-2024 Neutrophils/100 WBC (Bld) 52.0 % 47-70 [facility] Nucleated red blood cell per centageOrdered By: [facility] Angeles Pantoja on 05-14-2024 Nucleated RBC/100 WBC (Bld) [Ratio] 0 % 0-5 [facility] Platelet countOrdered By: [facility] Angeles Pantoja on 05-14-2024 Platelets (Bld) [#/Vol] 196 10*3/uL 150-450 [facility] Potassium (Unsp spec) [Mass/ Vol]Ordered By: [facility] Angeles Pantoja on 05-14-2024 Potassium [Moles/Vol] 4.0 mmol/L 3.3-5.1 [facility] Potassium measurement (mass/ volume)Ordered By: [facility] Angeles Pantoja on 05-14-2024 Potassium (Unsp spec) [Mass/Vol] 4.0 mmol/L 3.3-5.1 [facility] RBC Auto (Bld) [#/Vol]Ordere d By: [facility] Angeles Pantoja on 05-14-2024 RBC (Bld) [#/Vol] 4.56 10*6/uL 4.2-5.4 [facility] Serum creatinine measurement (mass/volume)Ordered By: [facility] Angeles Pantoja on 05-14-2024 Creatinine [Mass/Vol] 1.07 mg/dL 0.70-1.20 [facility] Serum globulin measurementOr dered By: [facility] Angeles Pantoja on 05-14-2024 Globulin (S) [Mass/Vol] 4.0 g/dL 2.2-4.2 [facility] Serum glucose measurement (m ass/volume)Ordered By: [facility] Angeles Pantoja on 05-14-2024 Glucose [Mass/Vol] 209 mg/dL High 70-99 [facility] Serum or plasma alanine clifton otransferase (ALT) measurementOrdered By: [facility] Angeles Pantoja on 05-14-2024 ALT [Catalytic activity/Vol] 30 U/L <35 [facility] Serum or plasma albumin jesus urement (mass/volume)Ordered By: [facility] Angeles Pantoja on 05-14-2024 Albumin [Mass/Vol] 4.2 g/dL 3.4-4.8 [facility] Serum or plasma albumin/glob ulin mass ratioOrdered By: [facility] Angeles Pantoja on 05-14-2024 Albumin/Globulin [Mass ratio] 1.1 {ratio} 0.9-2.4 [facility] Serum or plasma alkaline riri sphatase measurementOrdered By: [facility] Angeles Kit on 05-14-2024 ALP [Catalytic activity/Vol] 36 U/L 35-104 [facility] Serum or plasma calcium jesus urement (mass/volume)Ordered By: [facility] Angeles Kit on 05-14-2024 Calcium [Mass/Vol] 11.3 mg/dL High 7.6-11.0 [facility] Serum or plasma urea nitroge n measurement (mass/volume)Ordered By: [facility] on 05-14-2024 Urea nitrogen [Mass/Vol] 15 mg/dL 4-19 [facility] Sodium levelOrdered By: [facility] on 05-14-2024 Sodium [Moles/Vol] 139 mmol/L 133-145 [facility] Total proteinOrdered By: [facility] Angeles Kit on 05-14-2024 Protein [Mass/Vol] 8.2 g/dL 5.9-8.4 [facility] White blood cell (WBC) count Ordered By: [facility] Angeles Kit on 05-14-2024 WBC (Bld) [#/Vol] 7.6 10*3/uL 4.4-11.0 [facility] CNOVon 05-12-2024 CNOV Office Visit (UCTR ) ----- ESTELA KENNEY ([id number]) 1960 F Date Time Provider Department 05/12/24 8:30 AM DAKOTAH ROMO [facility] During your visit today, we recorded the following information about you: Temperature Pulse Respiration Blood pressure 97 degrees 88/minute 16/minute 144/82 Weight 75.1 kg Dakotah Romo, [employer].MEDICAL RECORD ASSISTANT 05/12/2024 9:01 AM Signed Subjective HPI Nontoxic-appearing 63-year-old female presents urgent care chief complaint nausea abdominal pain. Duration of symptom 1 month. Associated symptoms listed above. Presents today for evaluation. OTC medications MiraLAX. This did not help. No fevers. No blood in the stool. Past medical history prescription medications allergies reviewed. .Patient presents with: Constipation: nausea, stomach issues x 1 month PAST MEDICAL HISTORY Diagnosis Date Anxiety COPD (chronic obstructive pulmonary disease) (HCC) Depression Diabetes (HCC) GERD (gastroesophageal reflux disease) Glaucoma Hypertension Joint pain Kidney stone LBP (low back pain) Neck pain Obesity Restless leg syndrome Shingles Smoking PAST SURGICAL HISTORY Procedure Laterality Date ANESTH, SECTION APPENDECTOMY as child APPENDECTOMY HX DELIVERY ONLY 02/06/1980 , low transverse CHOLECYSTECTOMY 02/05/1999 Cholecystectomy laparoscopic ESOPHAGOGASTRODUODENOSCOP Y TRANSORAL DIAGNOSTIC 05/12/2015 EGD HYSTERECTOMY HX LITHOTRIPSY [...] ALLERGIES Bee Venom Protein (Honey Bee) MEDICATIONS omeprazole (PRILOSEC) 40 mg capsule Take 40 mg by mouth once daily. amLODIPine (NORVASC) 5 mg tablet Take by mouth once daily. furosemide (LASIX ORAL) Take by mouth. ACYCLOVIR ORAL Take by mouth. OZEMPIC 0.25 mg or 0.5 mg (2 mg/3 mL) pen 0.25 mg. oxyCODONE-acetaminophen (PERCOCET) 5-325 mg tablet Take 1 [...] three times a day for 30 days. nystatin (MYCOSTATIN) cream Zinc Sulfate 25 mg [...] Take 10 mg by mouth once daily. insulin glargine (LANTUS SOLOSTAR U-100 INSULIN) 100 unit/mL (3 mL) Inject 40 Units subcutaneously daily at bedtime. albuterol HFA (PROVENTIL HFA, VENTOLIN HFA) 90 [...] Take by mouth 3 times a WEEK. zolpidem (AMBIEN) 10 mg Take by mouth at bedtime as needed. HUMALOG KWIKPEN INSULIN 100 unit/mL Inject 4 Units subcutaneously daily with dinner. (Patient not taking: Reported on 05/20/2023) meloxicam (MOBIC) 7.5 mg tablet Take 1 tablet by mouth two times a day. With food. (Patient not taking: Reported on 05/12/2024) cyclobenzaprine (FLEXERIL) 10 mg tablet Take 1 tablet by mouth three times a day. (Mallory (more content not included)... Normal [facility] Plastic Surgery Visit Report on 04-10-2024 Plastic Surgery Visit Report [facility] Plastic Reconstructive Surgery [address], [address] [place] [address] OFFICE VISIT Date of Service: 04/10/24 MR#: [id number] Acct: [id number] Name: ESTELA KENNEY Rep #: [id number] : 1960 Provider: Dr. Josh Mijares MD Age/Sex: 63/F Location: [facility] [place] Status: Signed with Addenda ADDENDUM by Laila Barnes on 04/10/24 at 1009 Assessment and Plan (No Qualifiers) Assessment and Plan (1) Neuroma of hand: Status: Acute CGM Procedure CGM Procedure Informed Consent Signed: Yes Insertion: Kenalog 10 [id number] lot [id number] exp [id number] bupivicaine 0.25% [facility] [id number] lot [id number] exp apr 04 04/10/24 1105 Date Josh Mijares MD cc: * Signed Intake Vital Signs 01/10/24 13:26 03/03/24 10:45 04/10/24 09:39 Height 5 ft 5 ft 5 ft BP 135/82 H Blood Pressure Location Rt brachial Position Sitting Respiration 18 Pulse 85 Temp 97.7 F L Temp Source Temporal Pulse Oximetry (%) 93 Oxygen Delivery Method room air Intake Visit Reasons: 3 M F/U Chief Complaint: follow up injection on right thumb Is patient in pain?: No Allergies bee venom protein (honey bee) Allergy (Severe, Verified 04/10/24 09:39) edema Medications ???Medication ???Instructions ???Recorded ???Confirmed ???Type multivitamin with folic acid 400 1 tab PO DAILY supplement 06/13/13 01/25/24 History mcg tablet pravastatin 80 mg tablet 80 mg PO QHS cholesterol 06/13/13 01/25/24 History aspirin 81 mg tablet,delayed 81 mg PO DAILY heart health 01/25/24 History release (Adult Low Dose Aspirin) oxycodone-acetaminophen 5 mg-325 1 tab PO TID PRN Pain Or Fever 02/2501/25/24 History mg tablet (Percocet) pregabalin 100 mg capsule 100 mg PO TID neuropathy 05/06/20 01/25/24 History vitamin B complex 1 cap PO DAILY supplement 01/31/21 01/25/24 History ascorbate calcium (vitamin C) 500 500 mg PO DAILY 07/26/21 01/25/24 History mg tablet cholecalciferol (vitamin D3) 50 50 mcg PO DAILY 07/26/21 01/25/24 History mcg (2,000 unit) capsule oxycodone myristate 13.5 mg 13.5 mg PO BID 07/26/21 01/25/24 H istory capsule sprinkle extend release 12hr(DON'T CRUSH) (Xtampza ER) zinc sulfate 25 mg zinc (110 mg) 50 mg PO DAILY 07/26/21 01/25/24 H istory tablet insulin syringe-needle U-100 0.5 #100 ea 04/13/23 01/25/24 Rx mL 31 gauge x 5/16 (BD Insulin Syringe Ultra-Fine) magnesium 250 mg tablet 400 mg PO BID Leg cramps 05/07/23 01/25/24 History cetirizine 10 mg capsule (All Day 10 mg PO DAILY PRN allergy sympto ms 07/11/23 01/25/24 History Allergy (cetirizine)) cinnamon bark 500 mg capsule 1,000 mg PO DAILY 07/11/23 4 History (Cinnamon) docusate sodium 100 mg capsule 100 mg PO DAILY 07/11/23 01/25/24 History (Col-Rite) insulin glargine 100 unit/mL (3 37 unit subcut QHS 07/11/23 History mL) subcutaneous pen (Lantus Solostar U-100 Insulin) metformin 500 mg tablet,extended 500 mg PO DAILY 07/11/23 01/25/24 History release 24 hr omeprazole 40 mg capsule,delayed 40 mg PO DAILY 07/11/23 01/25/24 H istory release oxybutynin chloride 10 mg 10 mg PO DAILY 07/11/23 01/25/24 H istory tablet,extended release 24 hr semaglutide 1 mg/dose (4 mg/3 mL) 1 mg subcut WE 07/11/23 01/25/24 History subcutaneous pen injector (Ozempic) Prolia 60 mg/mL subcutaneous 60 mg subcut [id number] #1 mL 01/25/24 Rx syringe (denosumab) albuterol sulfate 90 mcg/actuation inhalation 09/28/23 01/25/24 His tory aerosol inhaler trazodone 50 mg tablet 50 mg PO QHS 09/28/23 01/25/24 His tory zolpidem 10 mg tablet 10 mg PO QHS PRN 01/10/24 01/25/24 History amlodipine 5 mg tablet 5 mg PO QDAY 04/10/24 04/10/24 His tory pen needle, diabetic 32 gauge x #100 ea 04/10/24 04/10/24 History 1/4 (BD Ultra-Fine Micro Pen Needle) semaglutide 2 mg/dose (8 mg/3 mL) 2 mg subcut QWEEK 04/10/24 History subcutaneous pen injector (Ozempic) Have you fallen in the past year?: No Nurse's Note: pt here for follow up on injections in thumb, pt states feels real good. Would like Dr. Mijares to prescribe another type of cream for spot on right forearm. Pharmacy unable to get cream Subjective Details: Estela Kenney is a 62-year-old female with past medical history of diabetes (well-controlled with A1c 5.9, type II) as well as history of right hand carpal tunnel and trigger finger release who presents today with a painful small mass of the proximal and radial portion of the thenar eminence. She reports it has been there for about 6 months, and she was referred to me by the [facility] dermatology group (Dr. Snow) for eval (more content not included)... Normal [facility] L3410.9998on 04-06-2024 [facility] COM[facility] Normal . [facility] Comment on above: Order Comment: [id number] 0PTH RELATED PEP EDTA PLASMA FZ Result Comment: Test Ordered: [id number] PTHrP (PTH-Related Peptide) PTHrP (PTH-Related Peptide) <2.0 pmol/L Reference Range: . This test was developed and its performance characteristics determined by [facility]. It has not been cleared or approved by the Food and Drug Administration. Reference Range: All Ages: <2.0 The PTHrP assay should not be used to exclude cancer or screen tumor patients for humoral hypercalcemia of malignancy (HHM). The results should always be assessed in conjunction with the patient's medical history, clinical examination, and other findings. If test results are clinically discordant, please contact the laboratory. Performed at: [facility] [address] [place] [id number] Hide Shaker: Gilmer Leal MD, Phone: [phone] Performed at: [address] [id number] Hide Shaker: Alvarado Carrillo PhD, Phone: [phone] Performed By: #### P SSI #### [facility] [address] [place], [address] Vitamin D 1,25-Dihydroxyon 0 04-05-2024 VIT D 1,25 DIHY 41.4 pg/mL Normal 24.8-81.5 [facility] Comment on above: Result Comment: Perf ormed at: [facility] [id number] Hide Shaker: Meche Moselye MD, Phone: [phone] Performed By: #### P SSI #### [facility] [address], [place], [id number] Renal Profileon 04-02-2024 Chloride [Moles/Vol] 100 mmol/L Normal 98-107 [facility] Comment on above: Performed By: #### P SSI #### [facility] [address] [place], [address] CO2 [Moles/Vol] 20.0 mmol/L Low 21.0-32.0 [facility] Comment on above: Performed By: #### P SSI #### [facility] [address] [place], [address] Calcium [Mass/Vol] 11.0 mg/dL Normal 7.6-11.0 [facility] Comment on above: Performed By: #### P SSI #### [facility] [address] [place], [address] Potassium [Moles/Vol] 4.0 mmol/L Normal 3.5-5.1 [facility] Comment on above: Performed By: #### P SSI #### [facility] [address] [place], [address] Sodium [Moles/Vol] 137 mmol/L Normal 136-145 [facility] Comment on above: Performed By: #### P SSI #### [facility] [address] [place], [address] 1,25-dihydroxyvitamin D3 [Ma ss/Vol]Ordered By: Constance Reyes on 04-01-2024 Vitamin D 1,25-Dihydroxy 41.4 pg/mL 24.8-81.5 [facility] Comment on above: Performed at: [address] [id number] Director: Meche Moseley MD, Phone: [phone] BUN/creatinine ratioOrdered By: Constance Reyes on 04-01-2024 Urea nitrogen/Creatinine [Mass ratio] 15.0 mg/mg 10-20 [facility] Creatinine Unsp time (U) [Ma ss/Vol]Ordered By: Constance Reyes on 04-01-2024 Creatinine (U) [Mass/Vol] 136.00 mg/dL NO RANGE EST. [facility] Creatinine [Moles/Vol]Ordere d By: Constance Reyes on 04-01-2024 Creatinine [Mass/Vol] 1.0 mg/dL 0.6-1.0 [facility] GFR/1.73 sq M.predicted adan g non-blacks MDRD (S/P/Bld) [Vol rate/Area]Ordered By: Constance Reyes on 04-01-2024 Estimated GFR (MDRD) Non-Af Amer [address] >60 [facility] Comment on above: mL/min/1.73m2 CKD-EP I Creatinine Equation (2020) Intact parathyroid hormone ( iPTH) measurementOrdered By: Constance Reyes on 04-01-2024 Parathyroid Hormone (Intact) 28 pg/mL 11-61 [facility] L506.1001on 04-01-2024 Vitamin D 25-OH 57.5 ng/mL Normal 30-100 [facility] Comment on above: Result Comment: Sumaya min D Status Deficiency: <20 ng/mL (50nmol/L) Insufficiency: 20-30 ng/mL (50-75 nmol/L) Sufficiency: 30-100 ng/mL (75-250 nmol/L) Toxicity: >100 ng/mL (>250 nmol/L) Performed By: #### P SSI #### [facility] [address] [place], [address] No Panel InformationOrdered By: Constance Reyes on 04-01-2024 Vitamin D 25-Hydroxy 57.5 ng/mL 30-100 [facility] Comment on above: Vitamin D StatusDefi ciency: <20 ng/mL (50nmol/L)Insufficiency: 20-30 ng/mL (50-75 nmol/L)Sufficiency: 30-100 ng/mL (75-250 nmol/L)Toxicity: >100 ng/mL (>250 nmol/L) Office Visit Reporton 2024 Office Visit Report [facility] [address] [place] [address] OFFICE VISIT Date of Service: 04/01/24 MR#: [id number] Acct: [id number] Patient: ESTELA KENNEY Rep #: [id number] : 1960 Provider: Tori Silva Age/Sex: 63/F Location: [facility] [place] Status: Signed Intake Vital Signs 01/25/24 13:01 03/03/24 10:45 Height 5 ft 5 ft Weight: 167 lb BMI 32.5 BP 127/73 H Blood Pressure Location Lt brachial Position Sitting Pulse 86 Pulse Source Monitor Pulse Oximetry (%) 95 Oxygen Delivery Method room air Intake Visit Reasons: Prolia B B Chief Complaint: Diabetes, Osteoporosis Allergies bee venom protein (honey bee) Allergy (Severe, Verified 01/25/24 13:00) edema Have you fallen in the past year?: No Office Procedures Injections Procedure performed by: Ayla Rivero Lot number: [id number] Security Flex Utility Officer: AM[employer] date: 08/04/26 Dose of injection: 1mL Site of injection: Sub-Q Medication Given: Yes Is this a patient provided medication?: No Office Meds Prolia 60 mg/mL subcutaneous syringe Performing Provider: Chino Peace MD Performing Location: [facility] Administered by: Ayla Rivero on 04/01/24 14:29 Dose Route Admin Location Dispensed Lot Number Expiration Date ND Man ufacturer 60 mg subcut Rt arm 1 mL [id number] 08/04/26 94889-963-26 [employer] Assessment and Plan Assessment and Plan (1) Osteoporosis: Status: Chronic Qualifiers: Osteoporosis type: age-related Presence of current pathological fracture: without current pathological fracture Qualified Code(s): M81.0 - Age-related osteoporosis without current pathological fracture Orders: Orders Prolia Injection Today M81.0 - Age-related osteoporosis without current pathological fracture Clinical Quality Measures Falls Risk Screening/Assistive Devices Have you fallen in the past year?: No 04/01/24 1444 Date Chino Peace MD Cosigner Signature: Date (if applicable) CC: Normal [facility] PTHINon 04-01-2024 PTH 28 pg/mL Normal 11-61 [facility] Comment on above: Performed By: #### P SSI #### [facility] [address] [place], [address] Potassium measurementOrdered By: Constance Reyes on 04-01-2024 Potassium [Moles/Vol] 4.0 mmol/L 3.5-5.1 [facility] Protein+Creatinine Ratio,Uri neon 04-01-2024 PROT:CRE RATIO 118 mg/g CRE Normal 0-200 [facility] Comment on above: Performed By: #### P SSI #### [facility] [address] [place], [address] Protein (U) [Mass/Vol] 16 mg/dL Normal <=12 [facility] Comment on above: Performed By: #### P SSI #### [facility] [address] [place], [address] UR CREAT 136.00 mg/dL Normal NO RANGE EST. [facility] Comment on above: Performed By: #### P SSI #### [facility] [address] [place], [address] Protein/Creatinine (U) [Mass ratio]Ordered By: Constance Reyes on 04-01-2024 Urine Protein/Creatinine Ratio 118 mg/g CRE 0-200 [facility] Serum glucose measurement (m ass/volume)Ordered By: Constance Reyes on 04-01-2024 Glucose [Mass/Vol] 204 mg/dL High 70-99 [facility] Serum or plasma albumin jesus urement (mass/volume)Ordered By: Constance Reyes on 04-01-2024 Albumin [Mass/Vol] 3.9 g/dL 3.4-4.8 [facility] Serum or plasma calcium jesus urement (mass/volume)Ordered By: Constance Reyes on 04-01-2024 Calcium [Mass/Vol] 11.0 mg/dL 7.6-11.0 [facility] Serum or plasma carbon dioxi de measurement (moles/volume)Ordered By: Constance Reyes on 04-01-2024 CO2 [Moles/Vol] 20.0 mmol/L Low 21.0-32.0 [facility] Serum or plasma chloride ceasar surement (moles/volume)Ordered By: Constance Reyes on 04-01-2024 Chloride [Moles/Vol] 100 mmol/L 98-107 [facility] Serum or plasma urea nitroge n measurement (mass/volume)Ordered By: Constance Reyes on 04-01-2024 Urea nitrogen [Mass/Vol] 15 mg/dL 4-19 [facility] Serum phosphorus measurement Ordered By: Constance Reyes on 04-01-2024 Phosphorus Level 3.4 mg/dL 2.7-4.5 [facility] Sodium levelOrdered By: Sathya Reyes on 04-01-2024 Sodium [Moles/Vol] 137 mmol/L 136-145 [facility] Urine protein measurement (m ass/volume)Ordered By: Constance Reyes on 04-01-2024 Protein (U) [Mass/Vol] 16 mg/dL <=12 [facility] Albumin to globulin ratioOrd ered By: Chino Peace on 03-28-2024 Albumin/Globulin [Mass ratio] 0.8 {ratio} Low 0.9-2.4 [facility] Bilirubin, totalOrdered By: Chino Peace on 03-28-2024 Bilirubin [Mass/Vol] 0.40 mg/dL 0.20-1.00 [facility] Comment on above: For patients on eltr ombopag therapy, use of Dimension [place] TBIL is not recommended. Blood urea nitrogen (BUN)/cr eatinine ratioOrdered By: Chino Peace on 03-28-2024 Urea nitrogen/Creatinine [Mass ratio] 12.0 mg/mg 10-20 [facility] Carbon dioxide measurementOr dered By: Chino Peace on 03-28-2024 CO2 [Moles/Vol] 26.0 mmol/L 21.0-32.0 [facility] Chloride measurementOrdered By: Chino Peace on 03-28-2024 Chloride [Moles/Vol] 100 mmol/L 98-107 [facility] Comprehensive Metabolic Prof ilon 03-28-2024 Albumin [Mass/Vol] 3.4 g/dL Normal 3.2-5.0 [facility] Comment on above: Performed By: #### L 509.1000, L500.4050, L500.4100 ####[facility] [address] [place], [address] Albumin/Globulin [Mass ratio] 0.8 {ratio} Low 0.9-2.4 [facility] Comment on above: Performed By: #### L 509.1000, L500.4050, L500.4100 ####[facility] [address] [place], [address] ALK P 38 U/L Low 45-117 [facility] Comment on above: Performed By: #### L 509.1000, L500.4050, L500.4100 ####[facility] [address] [place], [address] ALT [Catalytic activity/Vol] 46 U/L Normal 13-56 [facility] Comment on above: Performed By: #### L 509.1000, L500.4050, L500.4100 ####[facility] [address] [place], [address] AST [Catalytic activity/Vol] 27 U/L Normal 15-37 [facility] Comment on above: Performed By: #### L 509.1000, L500.4050, L500.4100 ####[facility] [address] [place], [address] Bilirubin [Mass/Vol] 0.40 mg/dL Normal 0.20-1.00 [facility] Comment on above: Result Comment: For patients on eltrombopag therapy, use of Dimension [place] TBIL is not recommended. Performed By: #### L 509.1000, L500.4050, L500.4100 ####[facility] [address] [place], [address] BUN/CRE 12.0 RATIO Normal 10-20 [facility] Comment on above: Performed By: #### L 509.1000, L500.4050, L500.4100 ####[facility] [address] [place], [address] CA,Total 10.5 mg/dL High 8.5-10.1 [facility] Comment on above: Performed By: #### L 509.1000, L500.4050, L500.4100 ####[facility] [address] [place], [address] Chloride [Moles/Vol] 100 mmol/L Normal 98-107 [facility] Comment on above: Performed By: #### L 509.1000, L500.4050, L500.4100 ####[facility] [address] [place], [address] CO2 [Moles/Vol] 26.0 mmol/L Normal 21.0-32.0 [facility] Comment on above: Performed By: #### L 509.1000, L500.4050, L500.4100 ####[facility] [address] [place], [address] Creatinine [Mass/Vol] 1.25 mg/dL High 0.55-1.02 [facility] Comment on above: Result Comment: The validity of the calculated GFR GFRAA in patients over 70 years has not been determined. Clinical correlation is essential. Performed By: #### L 509.1000, L500.4050, L500.4100 ####[facility] [address] [place], [address] EST GFR - AA 55 mL/min Low >60 [facility] Comment on above: Result Comment: Afri can Iranian GFR Calc Performed By: #### L 509.1000, L500.4050, L500.4100 ####[facility] [address] [place], [address] GAP 8 Normal 5-15 [facility] Comment on above: Performed By: #### L 509.1000, L500.4050, L500.4100 ####[facility] [address] [place], [address] GFR/1.73 sq M.predicted among non-blacks MDRD (S/P/Bld) [Vol rate/Area] 46 mL/min/{1.73_m2} Low >60 [facility] Comment on above: Result Comment: Non- GFR Calc Performed By: #### L 509.1000, L500.4050, L500.4100 ####[facility] [address] [place], [address] Globulin (S) [Mass/Vol] 4.3 g/dL High 2.2-4.2 [facility] Comment on above: Performed By: #### L 509.1000, L500.4050, L500.4100 ####[facility] [address] [place], [address] Glucose [Mass/Vol] 198 mg/dL High 74-106 [facility] Comment on above: Result Comment: Fast ing Glucose result greater than or equal to 126 mg/dL suggests DIABETES MELLITUS per A.D.A. criteria. Performed By: #### L 509.1000, L500.4050, L500.4100 ####[facility] [address] [place], [address] Potassium [Moles/Vol] 3.8 mmol/L Normal 3.5-5.1 [facility] Comment on above: Performed By: #### L 509.1000, L500.4050, L500.4100 ####[facility] [address] [place], [address] Sodium [Moles/Vol] 134 mmol/L Low 136-145 [facility] Comment on above: Performed By: #### L 509.1000, L500.4050, L500.4100 ####[facility] [address] [place], [address] T PROT 7.7 g/dL Normal 6.4-8.2 [facility] Comment on above: Performed By: #### L 509.1000, L500.4050, L500.4100 ####[facility] [address] [place], [address] Urea nitrogen [Mass/Vol] 15 mg/dL Normal 7-18 [facility] Comment on above: Performed By: #### L 509.1000, L500.4050, L500.4100 ####[facility] [address] [place], [address] Estimated glomerular filtrat ion rate (GFR) AmericanOrdered By: Chino Peace on 03-28-2024 Estimated GFR (MDRD) Amer 55 mL/min Low >60 [facility] Comment on above: GFR Calc Glomerular filtration rate ( GFR) estimationOrdered By: Chino Peace on 03-28-2024 Estimated GFR (MDRD) Non-Af Amer 46 mL/min Low >60 [facility] Comment on above: Non- GFR Calc Glucose measurementOrdered B y: Chino Peace on 03-28-2024 Glucose [Mass/Vol] 198 mg/dL High 74-106 [facility] Comment on above: Fasting Glucose resu lt greater than or equal to 126 mg/dL suggests DIABETES MELLITUS per A.D.A. criteria. High density lipoprotein (HD L) measurementOrdered By: Chino Peace on 03-28-2024 Cholesterol in HDL [Mass/Vol] 86 mg/dL >40 [facility] Comment on above: The drugs N-Acetylcy steine and Metamizole may falsely depress this assay. Reference Range HDL <40 mg/dL Low HDL Cholesterol HDL >or= 60 mg/dL High HDL Cholesterol Intact parathyroid hormone ( iPTH) measurementOrdered By: Chino Peace on 03-28-2024 Parathyroid Hormone (Intact) 62.0 pg/mL 18.4-80.1 [facility] Kidney and Bladderon 025 Kidney and Bladder [facility] [address] [place] [address] Kidney and Bladder MR#: [id number] Acct: [id number] Name: ESTELA KENNEY Rep #: [id number] : 1960 F 63 From: Zafar cadena MD PCP: MIKE Damian, BLOOD BANK LABORATORY TECHNICIAN-C Status: REG CLI Study: Kidney and Bladder Date of Exam: 03/28/24 Exam# [id number] Ordering Dr: Constance Reyes MD PROCEDURE: KIDNEY AND BLADDER REASON FOR EXAM: Chronic kidney disease stage 3 TECHNIQUE: Ultrasound of the kidneys and bladder COMPARISON: Comparison is made with prior study dated September 04, 2020. FINDINGS: Normal renal sizes, parenchymal thicknesses, and echotextures. No hydronephrosis. No cysts or large solid renal masses. Grossly normal bladder contour. No large bladder wall mass visualized. RIGHT Kidney Size: 10 cm x 5.2 cm x 4.5 cm Volume: 235 mL Cortical Thickness (if discernible): 9 mm (>6mm is normal) LEFT Kidney Size: 11.2 cm x 5.2 cm x 5 cm Volume: 151 mL Cortical Thickness (if discernible): 10 mm (>6mm is normal) BLADDER: Prevoid volume: 267 mL Mild degree of bladder wall thickening measuring 5.6 mm. US/Kidney and Bladder IMPRESSION: NORMAL RENAL. Bladder wall thickening measuring 5.6 mm. Reading Location: [facility] CC: [facility] BLOOD BANK LABORATORY TECHNICIAN-C Angeles Pantoja; Dr. Constance Reyes MD Evening Or Night Nurse Supervisor: Signed Normal [facility] - Chemistry and C hemistry - challengeOrdered By: Chino Peace on 03-28-2024 AST [Catalytic activity/Vol] 27 U/L 15-37 [facility] Lipid Profileon 03-28-2024 Cholesterol [Mass/Vol] 175 mg/dL Normal 200 [facility] Comment on above: Result Comment: <200 mg/dL Desirable 200-240 mg/dL Borderline >240 mg/dL High Risk Performed By: #### P SSI #### [facility] [address] [place], [address] Cholesterol in HDL [Mass/Vol] 86 mg/dL Normal [facility] Comment on above: Result Comment: The drugs N-Acetylcysteine and Metamizole may falsely depress this assay. Reference Range HDL <40 mg/dL Low HDL Cholesterol HDL >or= 60 mg/dL High HDL Cholesterol Performed By: #### P SSI #### [facility] [address] [place], [address] Cholesterol in LDL [Mass/Vol] 66 mg/dL Normal 0-130 [facility] Comment on above: Performed By: #### P SSI #### [facility] [address] [place], [address] Cholesterol in VLDL [Mass/Vol] 23 mg/dL Normal 5-40 [facility] Comment on above: Performed By: #### P SSI #### [facility] [address] [place], [address] Triglyceride [Mass/Vol] 117 mg/dL Normal [facility] Comment on above: Result Comment: The drugs N-Acetylcysteine and Metamizole may falsely depress this assay. Serum Triglycerides Reference Interval Normal <150 mg/dL Borderline high 150 - 199 mg/dL High 200 - 499 mg/dL Very High > or = 500 mg/dL Performed By: #### P SSI #### [facility] [address] [place], [address] Low density lipoprotein (LDL ) cholesterol measurementOrdered By: Chino Peace on 03-28-2024 Cholesterol in LDL [Mass/Vol] 66 mg/dL 0-130 [facility] Microalb:Creat Ratio,Random URon 02-21-2025 Creatinine [Mass/Vol] 15.80 mg/dL Normal NO RAN GE EST. [facility] Comment on above: Performed By: #### P SSI #### [facility] [address] [place], [place], [address] MALB:CRE 40.6 mg/g CRE High <30 mg/g CRE [facility] Comment on above: Performed By: #### P SSI #### [facility] [address] [place], [place], [address] MICROALBUMIN,UR 6.4 mg/L Normal NO RANGE EST. [facility] Comment on above: Performed By: #### P SSI #### [facility] [address] [place], [place], [address] PTHINon 03-28-2024 PTH 62.0 pg/mL Normal 18.4-80.1 [facility] Comment on above: Performed By: #### L 509.1000, L500.4050, L500.4100 ####[facility] [id number] [place], [place], [id number] Potassium measurementOrdered By: Chino Peace on 03-28-2024 Potassium [Moles/Vol] 3.8 mmol/L 3.5-5.1 [facility] Random urine microalbumin me asurementOrdered By: Chino Peace on 03-28-2024 Urine Random Microalbumin 6.4 mg/L NO RANGE EST. [facility] Serum anion gap measurementO rdered By: Chino Peace on 03-28-2024 Anion gap [Moles/Vol] 8 mmol/L 5-15 [facility] Serum globulin measurementOr dered By: Chino Peace on 03-28-2024 Globulin (S) [Mass/Vol] 4.3 g/dL High 2.2-4.2 [facility] Serum or plasma alanine clifton otransferase (ALT) measurementOrdered By: Chino Peace on 03-28-2024 ALT [Catalytic activity/Vol] 46 U/L 13-56 [facility] Serum or plasma albumin jesus urement (mass/volume)Ordered By: Chino Peace on 03-28-2024 Albumin [Mass/Vol] 3.4 g/dL 3.2-5.0 [facility] Serum or plasma alkaline riri sphatase measurementOrdered By: Chino Peace on 03-28-2024 ALP [Catalytic activity/Vol] 38 U/L Low 45-117 [facility] Serum or plasma calcium jesus urement (mass/volume)Ordered By: Chino Peace on 03-28-2024 Calcium [Mass/Vol] 10.5 mg/dL High 8.5-10.1 [facility] Serum or plasma cholesterol measurement (mass/volume)Ordered By: Chino Peace on 03-28-2024 Cholesterol [Mass/Vol] 175 mg/dL <200 [facility] Comment on above: <200 mg/dL Desirable 200-240 mg/dL Borderline >240 mg/dL High Risk Serum or plasma creatinine m easurement (mass/volume)Ordered By: Chino Peace on 03-28-2024 Creatinine [Mass/Vol] 1.25 mg/dL High 0.55-1.02 [facility] Comment on above: The validity of the calculated GFR & GFRAA in patients over 70 years has not been determined. Clinical correlation is essential. Serum or plasma urea nitroge n measurement (mass/volume)Ordered By: Chino Peace on 03-28-2024 Urea nitrogen [Mass/Vol] 15 mg/dL 7-18 [facility] Sodium levelOrdered By: Chino Peace on 03-28-2024 Sodium [Moles/Vol] 134 mmol/L Low 136-145 [facility] Total proteinOrdered By: Nii Peace on 03-28-2024 Protein [Mass/Vol] 7.7 g/dL 6.4-8.2 [facility] Triglycerides measurementOrd ered By: Chino Peace on 03-28-2024 Triglyceride [Mass/Vol] 117 mg/dL <199 [facility] Comment on above: The drugs N-Acetylcy steine and Metamizole may falsely depress this assay.Serum Triglycerides Reference Interval Normal <150 mg/dL Borderline high 150 - 199 mg/dL High 200 - 499 mg/dL Very High > or = 500 mg/dL Urine albumin/creatinine rat io for detection of microalbuminuriaOrdered By: Chino Peace on 03-28-2024 Urine Microalbumin/Creatinine Ratio 40.6 mg/g CRE High <30 [facility] Urine creatinine measurement (mass/volume)Ordered By: Chino Peace on 03-28-2024 Creatinine (U) [Mass/Vol] 15.80 mg/dL NO RANGE EST. [facility] Very low density lipoprotein (VLDL) cholesterol measurementOrdered By: Chino Peace on 03-28-2024 VLDL Cholesterol 23 mg/dL 5-40 [facility] Endocrinology Visit Reporton 01-25-2024 Endocrinology Visit Report [facility] [address] [place] [address] OFFICE VISIT Date of Service: 01/25/24 MR#: [id number] Acct: [id number] Name: ESTELA KENNEY Rep #: [id number] : 1960 Provider: Tori Silva Age/Sex: 63/F Location: [facility] [place] Status: Signed Intake Vital Signs 07/13/23 07:19 01/10/24 13:26 01/25/24 13:01 Height 5 ft 5 ft 5 ft Weight: 167 lb BMI 32.5 BP 127/73 H Blood Pressure Location Lt brachial Position Sitting Pulse 86 Pulse Source Monitor Pulse Oximetry (%) 95 Oxygen Delivery Method room air Intake Visit Reasons: 8 M FU Chief Complaint: Diabetes, Osteoporosis [employer] Required: No Accompanied by: Self Is patient in pain?: No Allergies bee venom protein (honey bee) Allergy (Severe, Verified 01/25/24 13:00) edema Medications ???Medication ???Instructions ???Recorded ???Confirmed ???Type multivitamin with folic acid 400 1 tab PO DAILY supplement 06/13/13 01/25/24 History mcg tablet pravastatin 80 mg tablet 80 mg PO QHS cholesterol 06/13/13 01/25/24 History aspirin 81 mg tablet,delayed 81 mg PO DAILY heart health 05/06/20 01/25/24 History release (Adult Low Dose Aspirin) oxycodone-acetaminophen 5 mg-325 1 tab PO TID PRN Pain Or Fever 05/06/20 01/25/24 History mg tablet (Percocet) pregabalin 100 mg capsule 100 mg PO TID neuropathy 05/06/20 01/25/24 History vitamin B complex 1 cap PO DAILY supplement 01/31/21 01/25/24 History ascorbate calcium (vitamin C) 500 500 mg PO DAILY 07/26/21 01/25/24 History mg tablet cholecalciferol (vitamin D3) 50 50 mcg PO DAILY 07/26/21 01/25/24 History mcg (2,000 unit) capsule oxycodone myristate 13.5 mg 13.5 mg PO BID 07/26/21 01/25/24 History capsule sprinkle extend release 12hr(DON'T CRUSH) (Xtampza ER) zinc sulfate 25 mg zinc (110 mg) 50 mg PO DAILY 07/26/21 01/25/24 History tablet insulin syringe-needle U-100 0.5 #100 ea 04/13/23 01/25/24 Rx mL 31 gauge x 5/16 (BD Insulin Syringe Ultra-Fine) magnesium 250 mg tablet 400 mg PO BID Leg cramps 05/07/23 01/25/24 History meloxicam 7.5 mg tablet 7.5 mg PO BID 05/07/23 01/25/24 History cetirizine 10 mg capsule (All Day 10 mg PO DAILY PRN allergy symptoms 07/11/23 01/25/24 History Allergy (cetirizine)) cinnamon bark 500 mg capsule 1,000 mg PO DAILY 07/11/23 01/25/24 History (Cinnamon) docusate sodium 100 mg capsule 100 mg PO DAILY 07/11/23 01/25/24 History (Col-Rite) insulin glargine 100 unit/mL (3 37 unit subcut QHS 07/11/23 01/25/24 History mL) subcutaneous pen (Lantus Solostar U-100 Insulin) metformin 500 mg tablet,extended 500 mg PO DAILY 07/11/23 01/25/24 History release 24 hr omeprazole 40 mg capsule,delayed 40 mg PO DAILY 07/11/23 01/25/24 History release oxybutynin chloride 10 mg 10 mg PO DAILY 07/11/23 01/25/24 History tablet,extended release 24 hr semaglutide 1 mg/dose (4 mg/3 mL) 1 mg subcut WE 07/11/23 01/25/24 History subcutaneous pen injector (Ozempic) Prolia 60 mg/mL subcutaneous 60 mg subcut [id number] #1 mL 09/12/23 01/25/24 Rx syringe (denosumab) albuterol sulfate 90 mcg/actuation inhalation 09/28/23 01/25/24 History aerosol inhaler trazodone 50 mg tablet 50 mg PO QHS 09/28/23 01/25/24 History zolpidem 10 mg tablet 10 mg PO QHS PRN 01/10/24 01/25/24 History losartan 50 mg tablet 50 mg PO QDAY 01/25/24 01/25/24 History Have you fallen in the past year?: No PFSH Medical History Right hand pain Trigger finger of right hand History of renal disease Easy bruising Excessive bleeding On home oxygen therapy Wears dentures Wears glasses Post-menopausal History of steroid therapy Insulin dependent diabetes mellitus Gout Back pain Gastric reflux Former smoker Shortness of breath on exertion Leg cramps History of echocardiogram History of stress test Cardiology follow-up encounter Vitamin D deficiency Type 2 diabetes with stage 3 chronic kidney disease GFR 30-59 Osteoporosis Hypercalcemia Hyperparathyroidism Pneumonia Leukocytosis Occasional tremors Abnormal EKG Left anterior fascicular block (LAFB) Essential hypertension Depression with anxiety Fracture of right wrist Arthritis History of back problems Obesity (BMI 30.0-34.9) REINALDO (acute kidney injury) Nephrolithiasis COPD (chronic obstructive pulmonary disease) GERD (gastroesophageal reflux disease) Atypical chest pain Diabetes mellitus type 2 in obese Surgical History History of carpal tunnel surgery of right wrist Hx of colonoscopy History of hysterectomy History of fusion of cervical spine History of discectomy history right shoulder surgery (more content not included)... Normal [facility] Plastic Surgery Visit Report on 01-10-2024 Plastic Surgery Visit Report [facility] [address], [address] [place], [place] [id number] OFFICE VISIT Date of Service: 01/10/24 MR#: [id number] Acct: [id number] Name: ESTELA KENNEY Rep #: [id number] : 1960 Provider: Dr. Josh Mijares MD Age/Sex: 63/F Location: [facility] Status: Signed Intake Vital Signs 09/28/23 09:24 01/10/24 13:26 Height 5 ft 5 ft Weight: 160 lb 8 oz 161 lb BMI 31.3 31.4 BP 115/67 127/76 H Blood Pressure Location Rt brachial Rt brachial Position Sitting Respiration 16 16 Pulse 78 Pulse Source Monitor Temp 99.2 F H 97.8 F Temp Source Temporal Oral Pulse Oximetry (%) 98 96 Oxygen Delivery Method room air room air Intake Visit Reasons: REEVALUATION NEUROMA SURG Chief Complaint: right hand neuroma Is patient in pain?: Yes (right hand/wrist ) Pain scale (1-10): 2 Allergies bee venom protein (honey bee) Allergy (Severe, Verified 01/10/24 13:23) edema Medications ???Medication ???Instructions ???Recorded ???Confirmed ???Type multivitamin with folic acid 400 1 tab PO DAILY supplement 06/13/13 01/10/24 History mcg tablet pravastatin 80 mg tablet 80 mg PO QHS cholesterol 06/13/13 01/10/24 History aspirin 81 mg tablet,delayed 81 mg PO DAILY heart health 05/06/20 01/10/24 History release (Adult Low Dose Aspirin) oxycodone-acetaminophen 5 mg-325 1 tab PO TID PRN Pain Or Fever 05/06/20 01/10/24 History mg tablet (Percocet) pregabalin 100 mg capsule 100 mg PO TID neuropathy 05/06/20 01/10/24 History vitamin B complex 1 cap PO DAILY supplement 01/31/21 01/10/24 History ascorbate calcium (vitamin C) 500 500 mg PO DAILY 07/26/21 01/10/24 History mg tablet cholecalciferol (vitamin D3) 50 50 mcg PO DAILY 07/26/21 01/10/24 History mcg (2,000 unit) capsule oxycodone myristate 13.5 mg 13.5 mg PO BID 07/26/21 01/10/24 History capsule sprinkle extend release 12hr(DON'T CRUSH) (Xtampza ER) zinc sulfate 25 mg zinc (110 mg) 50 mg PO DAILY 07/26/21 01/10/24 History tablet insulin syringe-needle U-100 0.5 #100 ea 04/13/23 09/28/23 Rx mL 31 gauge x 5/16 (BD Insulin Syringe Ultra-Fine) losartan 50 mg tablet 50 mg PO BID 05/07/23 01/10/24 History magnesium 250 mg tablet 400 mg PO BID Leg cramps 05/07/23 01/10/24 History meloxicam 7.5 mg tablet 7.5 mg PO BID 05/07/23 01/10/24 History cetirizine 10 mg capsule (All Day 10 mg PO DAILY PRN allergy symptoms 07/11/23 01/10/24 History Allergy (cetirizine)) cinnamon bark 500 mg capsule 1,000 mg PO DAILY 07/11/23 01/10/24 History (Cinnamon) docusate sodium 100 mg capsule 100 mg PO DAILY 07/11/23 01/10/24 History (Col-Rite) insulin glargine 100 unit/mL (3 37 unit subcut QHS 07/11/23 01/10/24 History mL) subcutaneous pen (Lantus Solostar U-100 Insulin) metformin 500 mg tablet,extended 500 mg PO DAILY 07/11/23 01/10/24 History release 24 hr omeprazole 40 mg capsule,delayed 40 mg PO DAILY 07/11/23 01/10/24 History release oxybutynin chloride 10 mg 10 mg PO DAILY 07/11/23 01/10/24 History tablet,extended release 24 hr semaglutide 1 mg/dose (4 mg/3 mL) 1 mg subcut WE 07/11/23 01/10/24 History subcutaneous pen injector (Ozempic) Prolia 60 mg/mL subcutaneous 60 mg subcut [id number] #1 mL 09/12/23 01/10/24 Rx syringe (denosumab) albuterol sulfate 90 mcg/actuation inhalation 09/28/23 01/10/24 History aerosol inhaler trazodone 50 mg tablet 50 mg PO QHS 09/28/23 01/10/24 History zolpidem 10 mg tablet 10 mg PO QHS PRN 01/10/24 01/10/24 History Have you fallen in the past year?: No Nurse's Note: reevaluation neuroma right hand [facility] Medical History Right hand pain Trigger finger of right hand History of renal disease Easy bruising Excessive bleeding On home oxygen therapy Wears dentures Wears glasses Post-menopausal History of steroid therapy Insulin dependent diabetes mellitus Gout Back pain Gastric reflux Former smoker Shortness of breath on exertion Leg cramps History of echocardiogram History of stress test Cardiology follow-up encounter Vitamin D deficiency 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 Normal [facility] CBC W/Diff, Automatedon 11-0 5-2023 Absolute Lymph 2.32 X10 3/uL Normal 0.83-4.51 [facility] Comment on above: Performed By: #### L 501.080 #### [facility] [address] [place], [address] Absolute Neut 4.0 X10 3/uL Normal 2.0-7.7 [facility] Comment on above: Performed By: #### L 501.080 #### [facility] [address] [place], [address] Basophils/100 WBC (Bld) 0.6 % Normal 0-1 [facility] Comment on above: Performed By: #### L [id number] #### [facility] [address] [place], [address] Eosinophils/100 WBC (Bld) 4.4 % Normal 0-5 [facility] Comment on above: Performed By: #### L [id number] #### [facility] [address] [place], [address] Erythrocyte distribution width (RBC) [Ratio] 14.5 % Normal 11.6-14.6 [facility] Comment on above: Performed By: #### L [id number] #### [facility] [address] [place], [address] Hematocrit (Bld) [Volume fraction] 44.0 % Normal 37-47 [facility] Comment on above: Performed By: #### L 501.080 #### [facility] [address] [place], [address] Hemoglobin (Bld) [Mass/Vol] 14.2 g/dL Normal 12.0-15.0 [facility] Comment on above: Performed By: #### L 501.080 #### [facility] [address] [place], [address] IG% 0.300 Normal 0.0-0.9 [facility] Comment on above: Result Comment: IG% - Immature Granulocytes (promyelocytes, myelocytes and metamyelocytes) > 1% indicates that a LEFT SHIFT is Present. Performed By: #### L 501.080 #### [facility] [address] [place], [address] Lymphocytes/100 WBC (Bld) 32.6 % Normal 19-41 [facility] Comment on above: Performed By: #### L 501.080 #### [facility] [address] [place], [address] MCH (RBC) [Entitic mass] 31.3 pg Normal 27.0-32.0 [facility] Comment on above: Performed By: #### L [id number] #### [facility] [address] [place], [address] MCHC (RBC) [Mass/Vol] 32.3 g/dL Normal 32-36 [facility] Comment on above: Performed By: #### L [id number] #### [facility] [address] [place], [address] MCV (RBC) [Entitic vol] 97.1 fL Normal 81-99 [facility] Comment on above: Performed By: #### L [id number] #### [facility] [address] [place], [address] Monocytes/100 WBC (Bld) 6.6 % Normal 0-10 [facility] Comment on above: Performed By: #### L [id number] #### [facility] [address] [place], [address] Neutrophils/100 WBC (Bld) 55.5 % Normal 47-70 [facility] Comment on above: Performed By: #### L 501.080 #### [facility] [address] [place], [address] Nucleated RBC (Bld) [#/Vol] 0 10*3/uL Normal 0-5 [facility] Comment on above: Performed By: #### L 501.080 #### [facility] [address] [place], [address] Platelet mean volume (Bld) [Entitic vol] 9.6 fL Normal 6.2-12.0 [facility] Comment on above: Performed By: #### L [id number] #### [facility] [address] [place], [address] Platelets (Bld) [#/Vol] 154 10*3/uL Normal 150-450 [facility] Comment on above: Performed By: #### L [id number] #### [facility] [address] [place], [address] RBC (Bld) [#/Vol] 4.53 10*6/uL Normal 4.2-5.4 [facility] Comment on above: Performed By: #### L [id number] #### [facility] [address] [place], [address] RDW SD 51.9 fl High 35.1-43.9 [facility] Comment on above: Performed By: #### L 501.080 #### [facility] [address] [place], [address] WBC (Bld) [#/Vol] 7.1 10*3/uL Normal 4.4-11.0 [facility] Comment on above: Performed By: #### L 501.080 #### [facility] [address] [place], [address] Comprehensive Metabolic Prof ilon 12-11-2023 Albumin [Mass/Vol] 3.7 g/dL Normal 3.2-5.0 [facility] Comment on above: Performed By: #### L 501.080 #### [facility] [address] [place], [address] Albumin/Globulin [Mass ratio] 0.9 {ratio} Normal 0.9-2.4 [facility] Comment on above: Performed By: #### L 501.080 #### [facility] [address] [place], [address] ALK P 30 U/L Low 45-117 [facility] Comment on above: Performed By: #### L 501.080 #### [facility] [address] [place], [address] ALT [Catalytic activity/Vol] 46 U/L Normal 13-56 [facility] Comment on above: Performed By: #### L 501.080 #### [facility] [address] [place], [address] AST [Catalytic activity/Vol] 23 U/L Normal 15-37 [facility] Comment on above: Performed By: #### L 501.080 #### [facility] [address] [place], [address] Bilirubin [Mass/Vol] 0.40 mg/dL Normal 0.20-1.00 [facility] Comment on above: Result Comment: For patients on eltrombopag therapy, use of Dimension [place] TBIL is not recommended. Performed By: #### L 501.080 #### [facility] [address] [place], [address] BUN/CRE 16.5 RATIO Normal 10-20 [facility] Comment on above: Performed By: #### L 501.080 #### [facility] [address] [place], [address] CA,Total 11.3 mg/dL High 8.5-10.1 [facility] Comment on above: Performed By: #### L 501.080 #### [facility] [address] [place], [address] Chloride [Moles/Vol] 105 mmol/L Normal 98-107 [facility] Comment on above: Performed By: #### L 501.080 #### [facility] [address] [place], [address] CO2 [Moles/Vol] 26.0 mmol/L Normal 21.0-32.0 [facility] Comment on above: Performed By: #### L 501.080 #### [facility] [address] [place], [address] Creatinine [Mass/Vol] 1.39 mg/dL High 0.55-1.02 [facility] Comment on above: Result Comment: The validity of the calculated GFR GFRAA in patients over 70 years has not been determined. Clinical correlation is essential. Performed By: #### L 501.080 #### [facility] [address] [place], [address] EST GFR - AA 49 mL/min Low >60 [facility] Comment on above: Result Comment: Afri can Iranian GFR Calc Performed By: #### L 501.080 #### [facility] [address] [place], [address] GAP 6 Normal 5-15 [facility] Comment on above: Performed By: #### L 501.080 #### [facility] [address] [place], [address] GFR/1.73 sq M.predicted among non-blacks MDRD (S/P/Bld) [Vol rate/Area] 40 mL/min/{1.73_m2} Low >60 [facility] Comment on above: Result Comment: Non- GFR Calc Performed By: #### L 501.080 #### [facility] [address] [place], [address] Globulin (S) [Mass/Vol] 4.3 g/dL High 2.2-4.2 [facility] Comment on above: Performed By: #### L 501.080 #### [facility] [address] [place], [address] Glucose [Mass/Vol] 140 mg/dL High 74-106 [facility] Comment on above: Result Comment: Fast ing Glucose result greater than or equal to 126 mg/dL suggests DIABETES MELLITUS per A.D.A. criteria. Performed By: #### L 501.080 #### [facility] [address] [place], [address] Potassium [Moles/Vol] 5.5 mmol/L High 3.5-5.1 [facility] Comment on above: Performed By: #### L 501.080 #### [facility] [address] [place], [address] Sodium [Moles/Vol] 137 mmol/L Normal 136-145 [facility] Comment on above: Performed By: #### L 501.080 #### [facility] [address] [place], [address] T PROT 8.0 g/dL Normal 6.4-8.2 [facility] Comment on above: Performed By: #### L 501.080 #### [facility] [address] [place], [place], [address] Urea nitrogen [Mass/Vol] 23 mg/dL High 7-18 [facility] Comment on above: Performed By: #### L 501.080 #### [facility] [address] [place], [address] Microalbumin,Random Urineon 12-11-2023 MICROALBUMIN,UR 62.5 mg/L Normal NO RANGE EST. [facility] Comment on above: Performed By: #### L 501.080 #### [facility] [address] [place], [address] Thyroid Stim Hormone (TSH)on 12-11-2023 TSH 1.310 uIU/mL Normal 0.358-3.[address] [facility] Comment on above: Performed By: #### L 501.080 #### [facility] [address] [place], [address] Vitamin D,25 Hydroxyon 12-10 Vitamin D 25-OH 51.2 ng/mL Normal [facility] Comment on above: Result Comment: Sumaya min D 25(OH) Status Range Deficiency <20 ng/mL (50nmol/L) Insufficiency 20 - 30 ng/mL (50 - 75 nmol/L) Sufficiency 30 - 100 ng/mL (75 - 250 nmol/L) Toxicity >100 ng/mL (>250 nmol/L) Performed By: #### L 501.080 #### [facility] [address] [place], [address] Plastic Surgery Visit Report on 09-28-2023 Plastic Surgery Visit Report [facility] Surgery [address], [address] [place], [place] [address] OFFICE VISIT Date of Service: 09/28/23 MR#: [id number] Acct: [id number] Name: ESTELA KENNEY Rep #: [id number] : 1960 Provider: Dr. Josh Mijares MD Age/Sex: 62/F Location: [facility] [place] Status: Signed Intake Vital Signs 09/04/23 06:42 09/28/23 09:24 Height 5 ft 5 ft Weight: 160 lb 8 oz BMI 31.3 BP 115/67 Blood Pressure Location Rt brachial Respiration 16 Temp 99.2 F H Temp Source Temporal Pulse Oximetry (%) 98 Oxygen Delivery Method room air Intake Visit Reasons: Rt hand neoplasm Chief Complaint: right hand neuroma Is patient in pain?: Yes (3/10 hand and back) Allergies bee venom protein (honey bee) Allergy (Severe, Verified 09/04/23 06:37) edema Medications ???Medication ???Instructions ???Recorded ???Confirmed ???Type multivitamin with folic acid 400 1 tab PO DAILY supplement 06/13/13 09/28/23 History mcg tablet pravastatin 80 mg tablet 80 mg PO QHS cholesterol 06/13/13 09/28/23 History aspirin 81 mg tablet,delayed 81 mg PO DAILY heart health 05/06/20 09/28/23 History release (Adult Low Dose Aspirin) oxycodone-acetaminophen 5 mg-325 1 tab PO TID PRN Pain Or Fever 05/06/20 09/28/23 History mg tablet (Percocet) pregabalin 100 mg capsule 100 mg PO TID neuropathy 05/06/20 09/28/23 History sennosides 15 mg tablet 15 mg PO BID PRN Constipation 01/31/21 09/28/23 History vitamin B complex 1 cap PO DAILY supplement 01/31/21 09/28/23 History ascorbate calcium (vitamin C) 500 500 mg PO DAILY 07/26/21 09/28/23 History mg tablet cholecalciferol (vitamin D3) 50 50 mcg PO DAILY 07/26/21 09/28/23 History mcg (2,000 unit) capsule oxycodone myristate 13.5 mg 13.5 mg PO BID 07/26/21 09/28/23 History capsule sprinkle extend release 12hr(DON'T CRUSH) (Xtampza ER) zinc sulfate 25 mg zinc (110 mg) 50 mg PO DAILY 07/26/21 09/28/23 History tablet insulin syringe-needle U-100 0.5 #100 ea 04/13/23 09/28/23 Rx mL 31 gauge x 5/16 (BD Insulin Syringe Ultra-Fine) losartan 50 mg tablet 50 mg PO BID 05/07/23 09/28/23 History magnesium 250 mg tablet 400 mg PO BID Leg cramps 05/07/23 09/28/23 History meloxicam 7.5 mg tablet 7.5 mg PO BID 05/07/23 09/28/23 History cetirizine 10 mg capsule (All Day 10 mg PO DAILY PRN allergy symptoms 07/11/23 09/28/23 History Allergy (cetirizine)) cinnamon bark 500 mg capsule 1,000 mg PO DAILY 07/11/23 09/28/23 History (Cinnamon) docusate sodium 100 mg capsule 100 mg PO DAILY 07/11/23 09/28/23 History (Col-Rite) insulin glargine 100 unit/mL (3 37 unit subcut QHS 07/11/23 09/28/23 History mL) subcutaneous pen (Lantus Solostar U-100 Insulin) metformin 500 mg tablet,extended 500 mg PO DAILY 07/11/23 09/28/23 History release 24 hr omeprazole 40 mg capsule,delayed 40 mg PO DAILY 07/11/23 09/28/23 History release oxybutynin chloride 10 mg 10 mg PO DAILY 07/11/23 09/28/23 History tablet,extended release 24 hr semaglutide 1 mg/dose (4 mg/3 mL) 1 mg subcut WE 07/11/23 09/28/23 History subcutaneous pen injector (Ozempic) sucralfate 1 gram tablet 1 g PO 4X/DAY #56 tabs 09/04/23 09/28/23 Rx Prolia 60 mg/mL subcutaneous 60 mg subcut [id number] #1 mL 09/12/23 09/28/23 Rx syringe (denosumab) albuterol sulfate 90 mcg/actuation inhalation 09/28/23 09/28/23 History aerosol inhaler mupirocin 2 % topical ointment 1 applic topical BID 14 days #15 09/28/23 09/28/23 Rx grams trazodone 50 mg tablet 50 mg PO QHS 09/28/23 09/28/23 History Have you fallen in the past year?: No Nurse's Note: pt here for eval of right wrist PFSH Medical History Right hand pain Trigger finger of right hand History of renal disease Easy bruising Excessive bleeding On home oxygen therapy Wears dentures Wears glasses Post-menopausal History of steroid therapy Insulin dependent diabetes mellitus Gout Back pain Gastric reflux Former smoker Shortness of breath on exertion Leg cramps History of echocardiogram History of stress test Cardiology follow-up encounter Vitamin D deficiency Type 2 diabetes with stage 3 chronic kidney disease GFR 30-59 Osteoporosis Hypercalcemia Hyperparathyroidism Pneumonia Leukocytosis Occasional tremors Abnormal EKG Left anterior fascicular block (LAFB) Essential hypertension Depression with anxiety Fracture of right wrist Arthritis History of back problems Obesity (BMI 30.0-34.9) REINALDO (acute kidney injury) Nephrolithiasis COPD (chronic obstructive pulmonary disease) GERD (gastroesophageal reflux disease) Atypical chest pain Diabetes mellitus type 2 in obese Surgical History ... Normal [facility] SCRN MAMM (CAD)W/TODD BILATo n 09-28-2023 SCRN MAMM (CAD)W/TODD BILAT [facility] Imaging Services [address] [place] [id number] SCRN MAMM (CAD)W/TODD BILAT MR#: [id number] Acct: [id number] Name: ESTELA KENNEY Rep #: [id number] : 1960 F 62 From: Zafar cadena MD PCP: Angeles Pantoja Jack, BLOOD BANK LABORATORY TECHNICIAN-C Status: REG CLI Study: SCRN MAMM (CAD)W/TODD BILAT Date of Exam: 09/06 04/28 Exam# [id number] Ordering Dr: Angeles Pantoja BLOOD BANK LABORATORY TECHNICIAN-C [id number] MAMMOGRAPHY - BILATERAL SCREENING REASON FOR EXAM: Female, 62 years old. Routine annual screening examination. PERTINENT HISTORY: Grandmother with breast cancer. Remote right stereotactic breast biopsy. TECHNIQUE: Digital bilateral breast todd (3D mammographic acquisition) in the CC and MLO projections. 2-D mediolateral oblique (MLO) and craniocaudad (CC) views of both breasts were obtained. CAD: Full Field Digital Mammography with Computer Added Detection was performed. COMPARISON: Comparison is made with prior study May 09, 2022 and May 03, 2021. FINDINGS: Breast Composition: The breasts are almost entirely fatty. There are no dominant masses or suspicious calcifications. Stable bilateral fat containing axillary lymph nodes. A tissue clip marker is once again seen in the deep inferior central portion of the right breast. No other significant abnormalities are identified. There has been no significant change since the prior study. BI/SCRN MAMM (CAD)W/TODD BILAT IMPRESSION: Stable bilateral screening mammogram. Yearly follow-up mammogram recommended. (A) ASSESSMENT CATEGORY: BIRADS Category 2: Benign. A letter regarding these results will be sent to the patient by the facility within 30 days. Approximately 10% of breast cancers are not detected by mammography. A normal mammogram should not delay biopsy of a clinically suspicious abnormality. [id number] Electronically Signed: Zafar Sue MD at 13:54 EDT , CC: [facility] JOSE Pantoja Evening Or Night Nurse Supervisor: Signed Normal [facility] Office Visit Reporton 2023 Office Visit Report [facility] [place] [address] OFFICE VISIT Date of Service: 09/27/23 MR#: [id number] Acct: [id number] Patient: ESTELA KENNEY Tori Rep #: [id number] : 1960 Provider: Tori Silva Age/Sex: 62/F Location: [facility] [place] Status: Signed Intake Vital Signs 09/04/23 06:42 Height 5 ft Intake Visit Reasons: Prolia - Pharmacy Chief Complaint: EGD- GERD Allergies bee venom protein (honey bee) Allergy (Severe, Verified 09/04/23 06:37) edema Office Procedures Injections Procedure performed by: Ayla Rivero Lot number: [id number] Security Flex Utility Officer: AMGEN date: 01/04/26 Dose of injection: 1mL Site of injection: Sub-Q Medication Given: Yes Is this a patient provided medication?: Yes Additional Details: Obtained consent for injection. Injected the patient with 1mL of Prolia. The patient tolerated the injection well without any noted complication. Patient should call our office if redness develops, pain worsens or if they have any concerns. Office Meds Prolia 60 mg/mL subcutaneous syringe Performing Provider: Chino Peace MD Performing Location: [facility] Administered by: Ayla Rivero on 09/27/23 15:05 Dose Route Admin Location Dispensed Lot Number Expiration Date [facility] ufacturer 60 mg subcut Lt arm 1 mL [id number] 01/04/26 [id number] AMGEN Assessment and Plan Assessment and Plan (1) Osteoporosis: Status: Chronic Qualifiers: Osteoporosis type: age-related Presence of current pathological fracture: without current pathological fracture Qualified Code(s): M81.0 - Age-related osteoporosis without current pathological fracture Orders: Orders Prolia Injection Today M81.0 - Age-related osteoporosis without current pathological fracture 09/27/23 1513 Date Chino Peace MD Cosigner Signature: Date (if applicable) CC: Normal [facility] Bedside Glucoseon 09-04-2023 FINGERSTICK GLU 102 mg/dL Normal 74-106 [facility] Comment on above: Result Comment: RAGHAV HOYOS OF PATIENT CARE PER NURSING PROTOCOL Performed By: #### L 501.080 #### [facility] [address] [facility] [place], [address] EGD Reporton 09-04-2023 EGD Report [facility] Medical Records Department [address] [place] [address] EGD Report MR#: [id number] Acct: [id number] Name: ESTELA KENNEY Rep #: [id number] : 1960 62 From: Joyce Barboza MD PCP: Angeles Pantoja Jack, BLOOD BANK LABORATORY TECHNICIAN-C Status:REG SDC Patient Name: Estela Kenney Procedure Date: 09/04/2023 7:25 AM Date of : 1960 Age: 62 Procedure: Upper GI endoscopy Indications: Heartburn Providers: Joyce Barboza MD Medicines: Monitored Anesthesia Care Patient Profile: This is a 62 year old female. Complications: No immediate complications. Procedure: Pre-Anesthesia Assessment: - Prior to the procedure, a History and Physical was performed, and patient medications and allergies were reviewed. The patient's tolerance of previous anesthesia was also reviewed. The risks and benefits of the procedure and the sedation options and risks were discussed with the patient. All questions were answered, and informed consent was obtained. Prior Anticoagulants: The patient has taken no anticoagulant or antiplatelet agents except for aspirin. ASA Grade Assessment: Per anesthesia. After reviewing the risks and benefits, the patient was deemed in satisfactory condition to undergo the procedure. After obtaining informed consent, the endoscope was passed under direct vision. Throughout the procedure, the patient's blood pressure, pulse, and oxygen saturations were monitored continuously. The gastroscope was introduced through the mouth, and advanced to the second part of duodenum. The upper GI endoscopy was accomplished without difficulty. The patient tolerated the procedure well. Scope In: 7:31:20 AM Scope Out: 7:34:31 AM Total Procedure Duration Time 0 hours 3 minutes 11 seconds Findings: The Z-line was variable and was found 38 cm from the incisors. The examined duodenum was normal. Bilious fluid was found in the entire examined stomach. Diffuse moderate inflammation characterized by erythema was found in the gastric antrum. Biopsies were taken with a cold forceps for histology. Biopsies were taken with a cold forceps for Helicobacter pylori cultures. The cardia and gastric fundus were normal on retroflexion. Impression: - Z-line variable, 38 cm from the incisors. - Normal examined duodenum. - Bilious gastric fluid. - Gastritis. Biopsied. Recommendation: - Await pathology results. - Discharge patient to home. - Resume previous diet. - Continue present medications. - Use sucralfate tablets 1 gram PO QID for 2 weeks. Procedure Code(s): --- Professional --- 72708, Esophagogastroduodenoscop y, flexible, transoral; with biopsy, single or multiple Diagnosis Code(s): --- Professional --- K22.89, Other specified disease of esophagus K29.70, Gastritis, unspecified, without bleeding R12, Heartburn CPT copyright 2021 [employer]. All rights reserved. The codes documented in this report are preliminary and upon binder chainstitch review may be revised to meet current compliance requirements. MD Joyce Castillo MD 09/04/2023 7:42:38 AM This report has been signed electronically. Number of Addenda: 0 Note Initiated On: 09/04/2023 7:25 AM 09/04/23741 Date Joyce Barboza MD Cosigner Signature: Date (if indicated) CC: [facility] BLOOD BANK LABORATORY TECHNICIAN-C Angeles Pantoja; Dr. Joyce Barboza MD Date Dictated: 09/04/23724 Date Transcribed: Evening Or Night Nurse Supervisor: TR Signed [facility] H Pylori (initial)on 024 H Pylori (initial) ----- Patient Age/Sex Location Account Attending Physician ESTELA KENNEY Tori 62/F EN [id number] Dr. Joyce Barboza MD Specimen: [id number] Received: 09/04/23 Status: RHONDA Seymour Num: [id number] Spec Type: IMMUNO Subm Dr: Dr. Joyce Barboza MD PHYSICIAN INSTITUTION [place] [address] SPECIMEN INFORMATION: Tissue Source: Antrum biopsy Clinical Info: GERD Specimen Number: [id number] CPT code: 85997,38550e8 METHODOLOGY: Deparaffinized sections of prefer/formalin-fixed tissue or PAP/DQ stained slides are incubated with monoclonal/polyclonal antibodies/oligonucleotid e probes. Localization is made via biotin free immunoperoxidase method. Appropriate controls are performed and reacted as expected. Results on target cell population are indicated in the following table: RESULTS: ANTIBODY / CLONE RESULT H Pylori (polyclonal) negative P53 (DO-7) negative Ki-67 (30-9) negative These tests were developed and their performance characteristics determined by [facility]. They may not have been cleared or approved by the U.S. Food and Drug Administration. The FDA has determined that such clearance or approval is not necessary. The above immunohistochemical/dualI SH markers are ordered and reviewed by the Pathologist. INTERPRETATION: Gastric antrum, biopsy: Negative for Helicobacter pylori organisms. No evidence of dysplasia. AM/mr 09/06/2023 Signed (signature on file) Dr. Zak Rodriguez, 09/06/[address] [facility] Comment on above: Performed By: #### L 501.080 #### [facility] [address] [facility] [place], [address] MR/POSTOP.MARIUSZ 09-04-2023 MR/POSTOP.[facility] Medical Records Department [address] [place] [address] Anesthesia Postop Eval I 09/04/2345 MR#: [id number] Acct: [id number] Name: ESTELA KENNEY Rep #: [id number] : 1960 62 From: Vinnie Zhang PCP: MIKE Damian, BLOOD BANK LABORATORY TECHNICIAN-C Status:REG SDC Y Race: C Location: [place] [address] Anesthesia: Postop Eval I Current Vital Signs Temperature: 97.5 F Pulse Rate: 67 Blood Pressure: 88/56 Respiratory Rate: 14 Pulse Ox: 93 Oxygen Delivery Method: Room Air Assessment Airway patent: Yes Spontaneous unlabored respirations: Yes Mental status: Awake and Calm nausea: No Vomiting: No Anesthesia Complication: No Fluid Hydration Crystalloid volume administer (ml): 400 Total IV fluid infused: 400 Progress Note Anesthesia document: Postop Eval 1 completed: Yes 09/04/23744 Date Vinnie Chairez Signature: Date CC: Signed Normal [facility] MR/[id number] 09-04-2023 MR/POSTOPAN2 [facility] Medical Records Department [address] [place] [address] Anesthesia Postop Eval II 09/04/23828 MR#: [id number] Acct: [id number] Name: ESTELA KENNEY Rep #: [id number] : 1960 62 From: Stef Hill MD PCP: MIKE Damian, BLOOD BANK LABORATORY TECHNICIAN-C Status:DEP [facility] [place] Y Race: C Location: EN Anesthesia Postop Eval I Sum Postop Eval Completion status Anesthesia document: Postop Eval 1 completed: Yes Anesthesia Postop Eval I Summary Anesthesia Postop Eval I Summary: Anesthesia Postop Eval I: Assessment Summary Airway patent Yes 09/04/23 07:45 [email or web address] Spontaneous unlabored Yes 09/04/23 07:45 [email or web address] respirations Mental status Awake,Calm 09/04/23 07:45 [email or web address] nausea No 09/04/23 07:45 [email or web address] Vomiting No 09/04/23 07:45 [email or web address] Anesthesia Postop Eval I: Fluid Summary Crystalloid volume administer 400 09/04/23 07:45 [email or web address] (ml) Colloids volume administered ( ml) Blood Product volume administered (ml) Total IV fluid infused 400 09/04/23 07:45 [email or web address] Anesthesia Postop Eval I: Summary Notes Anesthesia Complication No 09/04/23 07:45 [email or web address] Anesthesia Complication Comment: Post-operative progress note Anesthesia: Postop Eval II Evaluation Mental status: Awake Pain Level: 0 nausea: No Vomiting: No 09/04/23828 Stef Hill MD Cosigner Signature: Date CC: Signed Normal [facility] Special Stain Group Ion 08-07 Special Stain Group I ------- Patient Age/Sex Location Account Attending Physician ESTELA KENNEY 62/F EN [id number] Dr. Joyce Barboza MD Specimen: [id number] Received: 09/04/23 Status: RHONDA Seymour Num: [id number] Spec Type: EGD BIOPSY Subm Dr: Dr. Joyce Barboza MD HEADER OPERATION: EGD with biopsy PRE-OP DIAGNOSIS: GERD TISSUE SUBMITTED: Antrum biopsy MICROSCOPIC DIAGNOSIS Gastric antrum, biopsy: Chronic gastritis. Focal intestinal metaplasia. No evidence of dysplasia. See comment. / 09/05/2023 COMMENT The results of immunohistochemistry for Helicobacter pylori will be reported separately ([id number]). Immunohistochemistry ([id number]) for P53 and Ki-67 will be performed and results will be reported separately. Alcian blue/PAS stain with matched control supports the above diagnosis. MICROSCOPIC DESCRIPTION Slides are reviewed. GROSS DESCRIPTION Received in fixative is one container labeled with the patient's name and designated Antrum biopsy. The specimen consists of two irregular fragments of light singh soft tissue that in aggregate measure 0.6 x 0.3 x 0.1 cm. The specimen is totally submitted in one cassette. / 09/04/2023 TC:3 [facility]:[id number] Patient Age/Sex Location Account Attending Physician ESTELA KENNEY 62/F EN [id number] Dr. Joyce Barboza MD Signed (signature on file) Dr. Zak Rodriguez, DO 09/06/[address] [facility] Comment on above: Performed By: #### P SSI #### [facility] [place] [place], [id number] Absolute lymphocyte countOrd ered By: Pedro Pablo Barrientos on 05-20-2023 Lymphocytes Auto (Unsp spec) [#/Vol] 1.49 10*3/uL 0.83-4.51 [facility] Automated lymphocyte count a s percentage of total leukocytesOrdered By: Pedro Pablo Barrientos on 05-20-2023 Lymphocytes/100 WBC Auto (Unsp spec) 26.6 % 19-41 [facility] Basophil percentageOrdered B y: Pedro Pablo Barrientos on 05-20-2023 Basophil percentage 5-10 SEEN /hpf 0-5 [facility] Basophils/100 WBC (Bld) 0.7 % 0-1 [facility] Chloride [Moles/Vol] 97 mmol/L 98-107 [facility] Eosinophils/100 WBC (Bld) 3.0 % 0-5 [facility] Glucose [Mass/Vol] 131 mg/dL 74-106 [facility] Comment on above: Fasting Glucose resu lt greater than or equal to 126 mg/dL suggests DIABETES MELLITUS per A.D.A. criteria. Hemoglobin (Bld) [Mass/Vol] 11.5 g/dL 12.0-15.0 [facility] Monocytes/100 WBC (Bld) 7.0 % 0-10 [facility] Neutrophils (Bld) [#/Vol] 3.5 10*3/uL 2.0-7.7 [facility] Neutrophils/100 WBC (Bld) 62.3 % 47-70 [facility] Potassium [Moles/Vol] 5.3 mmol/L 3.5-5.1 [facility] Sodium [Moles/Vol] 129 mmol/L 136-145 [facility] WBC (Bld) [#/Vol] 5.6 10*3/uL 4.4-11.0 [facility] Bilirubin Test strip Ql (U)O rdered By: Pedro Pablo Barrientos on 05-20-2023 Bilirubin Ql (U) 1 mg/dL Negative [facility] Comment on above: COLOR OF URINE MAY A FFECT DIPSTICK RESULTS. CNOVon 05-20-2023 CNOV Office Visit (UCWSTR ) ----- ESTELA KENNEY ([id number]) 1960 F Date Time Provider Department 05/20/23 11:45 AM [facility] During your visit today, we recorded the following information about you: Temperature Pulse Respiration Blood pressure 96.1 degrees 70/minute 20/minute 148/50 Weight 75.7 kg Heaven Heredia PA 05/20/2023 12:28 PM Signed This note was created using [employer]. Subjective Estela Kenney is a 62 year [...] , low transverse CHOLECYSTECTOMY 02/05/1999 Cholecystectomy laparoscopic ESOPHAGOGASTRODUODENOSCOP Y TRANSORAL DIAGNOSTIC 05/12/2015 EGD HYSTERECTOMY HX LITHOTRIPSY [...] once d (more content not included)... Normal [facility] Determination of erythrocyte mean corpuscular volume (MCV)Ordered By: Pedro Pablo Barrientos on 05-20-2023 MCV (RBC) [Entitic vol] 92.9 fL 81-99 [facility] Erythrocyte distribution wid th ratioOrdered By: Pedro Pablo Barrientos on 05-20-2023 Erythrocyte distribution width (RBC) [Ratio] 15.1 % 11.6-14.6 [facility] Erythrocyte distribution wid th standard deviationOrdered By: Pedro Pablo Barrientos on 05-20-2023 Erythrocyte distribution width (RBC) [Entitic vol] 51.8 fL 35.1-43.9 [facility] Hematocrit Auto (Bld) [Volum e fraction]Ordered By: Pedro Pablo Barrientos on 05-20-2023 Hematocrit (Bld) [Volume fraction] 36.4 % 37-47 [facility] Immature granulocytes/100 WB C Auto (Bld)Ordered By: Pedro Pablo Barrientos on 05-20-2023 Immature granulocytes/100 WBC (Bld) 0.400 % 0.0-0.9 [facility] Comment on above: IG% - Immature Granu locytes (promyelocytes, myelocytes and metamyelocytes) > 1% indicates that a LEFT SHIFT is Present. Ketones Test strip Ql (U)Ord ered By: Pedro Pablo Barrientos on 05-20-2023 Ketones Ql (U) Negative Negative [facility] - Chemistry and C hemistry - challengeOrdered By: Pedro Pablo Barrientos on 05-20-2023 CO2 [Moles/Vol] 22.0 mmol/L 21.0-32.0 [facility] Natriuretic peptide B (Bld) [Mass/Vol] 110.4 pg/mL 0-100 [facility] Urea nitrogen/Creatinine [Mass ratio] 15.1 mg/mg 10-20 [facility] - Hematology and Cell countsOrdered By: Pedro Pablo Barrientos on 05-20-2023 MCH (RBC) [Entitic mass] 29.3 pg 27.0-32.0 [facility] MCHC (RBC) [Mass/Vol] 31.6 g/dL 32-36 [facility] Nucleated RBC/100 WBC (Bld) [Ratio] 0 % 0-5 [facility] Platelet mean volume (Bld) [Entitic vol] 9.3 fL 6.2-12.0 [facility] Platelets (Bld) [#/Vol] 163 10*3/uL 150-450 [facility] Mucus LM Ql (Urine sed)Order ed By: Pedro Pablo Barrientos on 05-20-2023 Mucus Ql (Urine sed) 0 SEEN /hpf [facility] Nitrite Test strip Ql (U)Ord ered By: Pedro Pablo Barrientos on 05-20-2023 Nitrite Ql (U) Positive Negative [facility] No Panel InformationOrdered By: Pedro Pablo Barrientos on 05-20-2023 Urine RBC 0 SEEN /hpf 0-5 [facility] Estimated GFR (MDRD) Amer 35 mL/min >60 [facility] Comment on above: GFR Calc Estimated GFR (MDRD) Non-Af Amer 29 mL/min >60 [facility] Comment on above: Non- GFR Calc Troponin I High Sensitivity 5 pg/mL 3.0-54.0 [facility] Comment on above: Please Note: New Pia t Units and Gender Specific Reference Ranges. For more information see Policy Stat Procedure [place] High Sensitivity Troponin (TNIH) and attachments. Protein Test strip Ql (U)Ord ered By: Pedro Pablo Barrientos on 05-20-2023 Protein Ql (U) Negative Negative [facility] RBC Auto (Bld) [#/Vol]Ordere d By: Pedro Pablo Barrientos on 05-20-2023 RBC (Bld) [#/Vol] 3.92 10*6/uL 4.2-5.4 [facility] Serum or plasma calcium jesus urement (mass/volume)Ordered By: Pedro Pablo Barrientos on 05-20-2023 Calcium [Mass/Vol] 9.9 mg/dL 8.5-10.1 [facility] Serum or plasma creatinine m easurement (mass/volume)Ordered By: Pedro Pablo Barrientos on 05-20-2023 Creatinine [Mass/Vol] 1.85 mg/dL 0.55-1.02 [facility] Comment on above: The validity of the calculated GFR & GFRAA in patients over 70 years has not been determined. Clinical correlation is essential. Serum or plasma urea nitroge n measurement (mass/volume)Ordered By: Pedro Pablo Barrientos on 05-20-2023 Urea nitrogen [Mass/Vol] 28 mg/dL 7-18 [facility] Squamous epithelial cells de tection in urine sediment by light microscopyOrdered By: Pedro Pablo Barrientos on 05-20-2023 Epithelial cells.squamous LM Ql (Urine sed) 0 SEEN /hpf 5-10 [facility] Thin prep Papanicolaou smear with manual screeningOrdered By: Pedro Pablo Barrientos on 05-20-2023 Thin prep Papanicolaou smear with manual screening 10 5-15 [facility] UA DIP, URINE (POC)on 2023 BILIRUBIN UA (POCT) Negative Negative [facility] CLARITY UA (POCT) Cloudy [facility] COLOR UA (POCT) [place] [facility] GLUCOSE UA (POCT) Negative Negative mg/dL [facility] Hemoglobin Ql (U) Negative Negative [facility] KETONE UA (POCT) Negative Negative mg/dL [facility] LEUKOCYTES UA (POCT) Small Abnormal Negative [facility] NITRITE UA (POCT) Positive Abnormal Negative [facility] PH UA (POCT) 5.5 4.5 - 8.0 [facility] Protein Ql (U) Negative Negative mg/dL [facility] SPECIFIC GRAVITY UA (POCT) <=1.005 Abnormal 1.005 - 1.030 [facility] UROBILINOGEN UA (POCT) 0.2 E.U./dL Ronit l E.U./dL [facility] Urine blood detectionOrdered By: Pedro Pablo Barrientos on 05-20-2023 RBC Ql (U) Negative Negative [facility] Urine clarityOrdered By: Best Barrientos on 05-20-2023 Clarity (U) Clear Clear [facility] Urine color determinationOrd ered By: Pedro Pablo Barrientos on 05-20-2023 Color (U) Yellow Yellow [facility] Urine glucose detectionOrder ed By: Pedro Pablo Barrientos on 05-20-2023 Glucose Ql (U) Normal mg/dl Normal [facility] Urine leukocyte esterase det ection by dipstickOrdered By: Pedro Pablo Barrientos on 05-20-2023 Leukocyte esterase Test strip Ql (U) 500 /ul Negative [facility] Urine pHOrdered By: Pedro Pablo archer on 05-20-2023 pH (U) 7.0 [pH] 5.0 - 8.0 [facility] Urine sediment bacteria coun t by microscopy (number/high power field)Ordered By: Pedro Pablo Barrientos on 05-20-2023 Bacteria LM.HPF (Urine sed) [#/Area] 1 /[HPF] None Seen [facility] Urine specific gravity measu rementOrdered By: Pedro Pablo Barrientos on 05-20-2023 Specific gravity (U) [Rel density] 1.010 1.002-1.[address] [facility] Urine urobilinogen measureme ntOrdered By: Pedro Pablo Barrientos on 05-20-2023 Urobilinogen Ql (U) 1 mg/dl Normal [facility] - Drug toxicology Ordered By: Dakotah Gold on 02-12-2023 Amphetamines Ql (U) Negative <1000 ng/mL [facility] Benzodiazepines Ql (U) Negative < 200 ng/mL [facility] Cannabinoids Screen Ql (U) Negative < 50 ng/mL [facility] Cocaine Ql (U) Negative < 300 ng/mL [facility] Opiates Ql (U) Positive < 300 ng/mL [facility] No Panel InformationOrdered By: Dakotah Gold on 02-12-2023 MDMA (Ecstasy) Screen Negative < 500 ng/mL [facility] [facility] Urine Barbiturates Screen Negative < 200 ng/mL [facility] Urine Drug Screen Comment [facility] Comment on above: CONFIRMATORY TESTING FOR ALL POSITIVE URINE DRUG SCREENRESULTS WILL ONLY BE SENT OUT UPON PHYSICIAN ORDER. VISTA Urine Drug Screen methods provide only preliminaryanalytical test results. A more specific alternate chemicalmethod must be used in order to obtain a confirmedanalytical result. Gas chromatography/mass spectrometery(GC/MS) is the preferred confirmatory method. Clinicalconsideration and professional judgement should be appliedto any drug of abuse test result, particularly whenpreliminary positive results are used. URINE TCA TESTING MUST BE ORDERED SEPARATELY. USE TESTMNEMONIC: [facility] Urine Methadone Screen Negative < 300 ng/mL [facility] Urine phencyclidine (PCP) de tectionOrdered By: Dakotah Gold on 02-12-2023 Phencyclidine Ql (U) Negative < 25 ng/mL [facility] Absolute lymphocyte countOrd ered By: Angeles Pantoja on 02-02-2023 Lymphocytes Auto (Unsp spec) [#/Vol] 2.85 10*3/uL 0.83-4.51 [facility] Basophil percentageOrdered B y: Angeles Pantoja on 02-02-2023 Basophils/100 WBC (Bld) 0.6 % 0-1 [facility] Bilirubin [Mass/Vol] 0.40 mg/dL 0.20-1.00 [facility] Comment on above: For patients on eltr ombopag therapy, use of Dimension [place] TBIL is not recommended. Chloride [Moles/Vol] 97 mmol/L 98-107 [facility] Eosinophils/100 WBC (Bld) 4.2 % 0-5 [facility] Glucose [Mass/Vol] 117 mg/dL 74-106 [facility] Comment on above: Fasting Glucose resu lt from 100 to 125 mg/dL suggests IMPAIRED HOMEOSTASIS per A.D.A. criteria. Neutrophils (Bld) [#/Vol] 2.5 10*3/uL 2.0-7.7 [facility] Neutrophils/100 WBC (Bld) 41.1 % 47-70 [facility] Potassium [Moles/Vol] 4.3 mmol/L 3.5-5.1 [facility] Protein [Mass/Vol] 8.1 g/dL 6.4-8.2 [facility] Sodium [Moles/Vol] 133 mmol/L 136-145 [facility] WBC (Bld) [#/Vol] 6.2 10*3/uL 4.4-11.0 [facility] Blood erythrocytes count (nu mber/volume)Ordered By: Angeles Pantoja on 02-02-2023 RBC (Bld) [#/Vol] 4.42 10*6/uL 4.2-5.4 [facility] Blood hemoglobin measurement (mass/volume)Ordered By: Angeles Pantoja on 02-02-2023 Hemoglobin (Bld) [Mass/Vol] 12.7 g/dL 12.0-15.0 [facility] Blood lymphocytes/100 leukoc ytesOrdered By: Angeles Pantoja on 02-02-2023 Lymphocytes/100 WBC (Bld) 46.3 % 19-41 [facility] Blood monocytes/100 leukocyt esOrdered By: Angeles Pantoja on 02-02-2023 Monocytes/100 WBC (Bld) 7.6 % 0-10 [facility] Blood platelet mean volumeOr dered By: Angeles Pantoja on 02-02-2023 Platelet mean volume (Bld) [Entitic vol] 10.0 fL 6.2-12.0 [facility] Determination of erythrocyte mean corpuscular volume (MCV)Ordered By: Angeles Pantoja on 02-02-2023 MCV (RBC) [Entitic vol] 89.6 fL 81-99 [facility] Hematocrit Auto (Bld) [Volum e fraction]Ordered By: Angeles Pantoja on 02-02-2023 Hematocrit (Bld) [Volume fraction] 39.6 % 37-47 [facility] Laboratory - Chemistry and C hemistry - challengeOrdered By: Angeles Pantoja on 02-02-2023 ALP [Catalytic activity/Vol] 35 U/L 45-117 [facility] ALT [Catalytic activity/Vol] 37 U/L 13-56 [facility] CO2 [Moles/Vol] 26.0 mmol/L 21.0-32.0 [facility] Globulin (S) [Mass/Vol] 4.3 g/dL 2.2-4.2 [facility] Urea nitrogen/Creatinine [Mass ratio] 8.6 mg/mg 10-20 [facility] Laboratory - Hematology and Cell countsOrdered By: Angeles Pantoja on 02-02-2023 Erythrocyte distribution width (RBC) [Entitic vol] 53.8 fL 35.1-43.9 [facility] Erythrocyte distribution width (RBC) [Ratio] 16.7 % 11.6-14.6 [facility] Immature granulocytes/100 WBC (Bld) 0.200 % 0.0-0.9 [facility] Comment on above: IG% - Immature Granu locytes (promyelocytes, myelocytes and metamyelocytes) > 1% indicates that a LEFT SHIFT is Present. MCH (RBC) [Entitic mass] 28.7 pg 27.0-32.0 [facility] Nucleated RBC/100 WBC (Bld) [Ratio] 0 % 0-5 [facility] MCHC Auto (RBC) [Mass/Vol]Or dered By: Angeles Pantoja on 02-02-2023 MCHC (RBC) [Mass/Vol] 32.1 g/dL 32-36 [facility] No Panel InformationOrdered By: Angeles Pantoja on 02-02-2023 Estimated GFR (MDRD) Amer 44 mL/min >60 [facility] Comment on above: GFR Calc Estimated GFR (MDRD) Non-Af Amer 37 mL/min >60 [facility] Comment on above: Non- GFR Calc Thyroid Stimulating Hormone (TSH) 3.71 uIU/mL 0.358-3.74 [facility] Vitamin D 25-Hydroxy 58.5 ng/mL [facility] Comment on above: Vitamin D 25(OH) Sta tus Range Deficiency <20 ng/mL (50nmol/L) Insufficiency 20 - 30 ng/mL (50 - 75 nmol/L) Sufficiency 30 - 100 ng/mL (75 - 250 nmol/L) Toxicity >100 ng/mL (>250 nmol/L) Platelets bldOrdered By: Suly Pantoja on 02-02-2023 Platelets (Bld) [#/Vol] 194 10*3/uL 150-450 [facility] Serum or plasma albumin jesus urement (mass/volume)Ordered By: Angeles Pantoja on 02-02-2023 Albumin [Mass/Vol] 3.8 g/dL 3.2-5.0 [facility] Serum or plasma albumin/glob ulin mass ratioOrdered By: Angeles Pantoja on 02-02-2023 Albumin/Globulin [Mass ratio] 0.9 {ratio} 0.9-2.4 [facility] Serum or plasma calcium jesus urement (mass/volume)Ordered By: Angeles Pantoja on 02-02-2023 Calcium [Mass/Vol] 10.7 mg/dL 8.5-10.1 [facility] Serum or plasma creatinine m easurement (mass/volume)Ordered By: Angeles Pantoja on 02-02-2023 Creatinine [Mass/Vol] 1.52 mg/dL 0.55-1.02 [facility] Comment on above: The validity of the calculated GFR & GFRAA in patients over 70 years has not been determined. Clinical correlation is essential. Serum or plasma urea nitroge n measurement (mass/volume)Ordered By: Angeles Pantoja on 02-02-2023 Urea nitrogen [Mass/Vol] 13 mg/dL 7-18 [facility] Thin prep Papanicolaou smear with manual screeningOrdered By: Angeles Pantoja on 02-02-2023 Thin prep Papanicolaou smear with manual screening 37 U/L 15-37 [facility] Thin prep Papanicolaou smear with manual screening 10 5-15 [facility] Thin prep Papanicolaou smear with manual screening 40.5 mg/L NO RANGE EST. [facility] Fatou 01-18-2023 CNPN Telephone ([facility]) ----- ESTELA KENNEY ([id number]) 1960 F Date Time Provider Department 01/18/23 YOEL PADGETT [facility] During your visit today, we [...] Comments Date Reviewed: 11/16/2022 Reviewed by: Jackie Mahan, RN - Fully Assessed Reason for Visit: pa submitted for percocet to [facility] [Other] Prescriptions as of 01/18/2023 - [...] brain [G93.9] 05/17/2022 (more content not included)... [facility] Fatou 01-16-2023 DUNIAN Telephone (KAM) ----- ESTELA KENNEY ([id number]) 1960 F Date Time Provider Department 01/16/23 [...] was last seen on 11/07/[address] Lam and she noted that C-9 send to transfer to Dr Gold. I LM with Dr Gold's office to confirm appointment. Waiting on his office to call back. Please advise on Refills Rita Ayala RN January 16, 2023 9:45 AM Rita Ayala RN 01/16/2023 10:31 AM Signed [place] PM called the office back and confirmed that pt does have an appointment on 02/12/33 at 1:30 pm. Rita Ayala RN January 16, 2023 10:31 AM Yoel Padgett APRN.[facility] 01/18/2023 12:09 PM Signed The following approved [...] day. With food. Authorizing Provider: YOEL PADGETT APRN.MEDICAL RECORD ASSISTANT Allergies As of Date: 01/16/2023 Noted Allergy Reaction BEE VENOM PROTEIN (HONEY BEE) 03/21/2022 14 - Other: See Comments Date Reviewed: 11/16/2022 Reviewed by: Jackie Mahan, RN - Fully Assessed Reason for Visit: Medication Problem [65] Cmt: Not seeing Dr Gold until February Visit Diagnosis:Spinal stenosis, lumbar region, without neurogenic claudication [M48.061] Order(s):oxyCODONE-acetam inophen (PERCOCET) 5-325 mg tabletTake 1 tablet by [...] Take by m (more content not included)... Normal [facility] Laboratory - Hematology and Cell countson 12-04-2022 HbA1c (Bld) [Mass fraction] 8.9 % 4.2-6.3 [facility] OPERATIVE NOon 11-16-2022 OPERATIVE NO HNO ID: [id number] Author: Lina Lam DO Service: Pain Management Author Type: Physician Type: Operative Report Filed: 11/16/2022 11:53 AM Note Text: ----- Summary: Left L-SNRB at L3-S1 ----- PROCEDURE: LEFT lumbar selective nerve root block [...] with supervision to home in good condition. [facility] 11-11-2022 DEON Telephone ([facility]) ----- ESTELA KENNEY ([id number]) 1960 F Date Time Provider Department 11/11/22 LINA LAM During your visit today, we recorded the [...] Fall [W19.XXXA] 05/17/2022 Herniation of intervertebral disc [[id number]] 12/11/2017 Hypercalcemia [E83.52] 0 (more content not included)... [facility] CNOVon 11-07-2022 NEO Office Visit (KAM ) ----- ESTELA KENNEY ([id number]) 1960 F Date Time Provider Department 11/07/22 2:30 PM LINA LAM During your visit today, we recorded the following information about you: Pulse Respiration Blood pressure Weight 85/minute 18/minute 113/62 73.9 kg Height 1.524 m Lina Lam, DO 11/11/2022 9:43 AM Signed DATE: November 07, 2022 claim # [id number] DOI: 03/09/2008 Allowed diagnosis: S43.401A, S33.5XXA, S40.011A, S50.11XA, S30.0XA, S46.011A, M54.17, S43.431A, M25.811, M51.27, M75.41, M19.077, M48.061 Chief Complaint: Lower back History of Present Illness: Estela Kenney is a 62 year old female being seen at [facility] for a evaluation and/or management of their chronic pain. The patient was last seen in the office on 08/15/2022 by Rhonda Mcneal NP, and the plan of care was [...] , low transverse CHOLECYSTECTOMY 02/05/1999 Cholecystectomy laparoscopic ESOPHAGOGASTRODUODENOSCOP Y TRANSORAL DIAGNOSTIC 05/12/2015 EGD HYSTERECTOMY HX LITHOTRIPSY [...] of heart att (more content not included)... [facility] 10-05-2022 DUNIAN Telephone ([facility]) ----- ESTELA KENNEY ([id number]) 1960 F Date Time Provider Department 10/05/22 [...] Comments Date Reviewed: 08/15/2022 Reviewed by: Rhonda Mcneal APRN.MANGANESE BREAKER - Fully Assessed Prescriptions as of 10/05/2022 [...] of brain [G (more content not included)... [facility] 10-04-2022 DUNIAN Telephone ([facility]) ----- ESTELA KENNEY ([id number]) 1960 F Date Time Provider Department 10/04/22 [...] Comments Date Reviewed: 08/15/2022 Reviewed by: Rhonda Mcneal APRN.MANGANESE BREAKER - Fully Assessed Prescriptions as of 10/04/2022 [...] [E86.0] 05/18/19 (more content not included)... Normal [facility] US KIDNEY/BLADDERon 09-06-19 [facility] CNPNon 09-01-2022 CNPN Telephone ([facility]) ----- ESTELA KENNEY ([id number]) 1960 F Date Time Provider Department 09/01/22 RHONDA MCNEAL During your visit today, we recorded the following information about you: Graciela Dhaliwal 09/01/2022 11:00 AM Signed I sent an e-mail regarding the status of the C-9 for left L3-S1 SNRB. Graciela September 01, 2022 11:00 AM Allergies As of Date: 09/01/2022 Noted Allergy Reaction BEE VENOM PROTEIN (HONEY BEE) 03/21/2022 14 - Other: See Comments Date Reviewed: 08/15/2022 Reviewed by: Rhonda Mcneal APRN.MANGANESE BREAKER - Fully Assessed Reason for Visit: C-9 [...] of brain [G93.9] more content not included)... Normal [facility] CNPNon 08-22-2022 CNPN Telephone ([facility]) ----- ESTELA KENNEY ([id number]) 1960 F Date Time Provider Department 08/22/22 RHONDA MCNEAL [facility] During your visit today, we recorded the following information about you: Keri Aguiar MA 08/22/2022 3:50 PM Signed Xtampza er pa sent to [facility] through [employer] with 2 ov notes,soapp,uds, and contract. Keri Aguiar MA August 22, 2022 3:50 PM Allergies As of Date: 08/22/2022 Noted Allergy Reaction BEE VENOM PROTEIN (HONEY BEE) 03/21/2022 14 - Other: See Comments Date Reviewed: 08/15/2022 Reviewed by: Rhonda Mcneal APRN.MANGANESE BREAKER - Fully Assessed Reason for Visit: med [...] back and pelvis, initial enc*12/11/2017 Dehydration [E86.0] 04/ (more content not included)... Normal [facility] CNPN Telephone ([facility]) ----- ESTELA KENNEY ([id number]) 1960 F Date Time Provider Department 08/22/22 RHONDA MCNEAL [facility] During your visit today, we recorded the following information about you: Keri Aguiar MA 08/22/2022 5:18 PM Signed Xtampza er approved through [facility] Approved 08/22/22-08/23/23 I indexed approval letter Keri Aguiar MA August 22, 2022 5:18 PM Allergies As of Date: 08/22/2022 Noted Allergy Reaction BEE VENOM PROTEIN (HONEY BEE) 03/21/2022 14 - Other: See Comments Date Reviewed: 08/15/2022 Reviewed by: Rhonda Mcneal APRN.MANGANESE BREAKER - Fully Assessed Reason for Visit: xtampza [...] initial enc*12/11/2017 Dehydration (more content not included)... Normal [facility] CNOVon 08-15-2022 CNOV Office Visit (KAM ) ----- ESTELA KENNEY ([id number]) 1960 F Date Time Provider Department 08/15/22 3:00 PM RHONDA MCNEAL During your visit today, we recorded the following information about you: Pulse Respiration Blood pressure Weight 78/minute 19/minute 148/71 72.1 kg Height 1.524 m Rhonda Mcneal APRN.MANGANESE BREAKER 08/15/2022 3:37 PM Signed SUBJECTIVE: Estela Kenney presents to [facility] Department for a follow-up appointment for back pain [facility] Last seen by me on [...] , low transverse CHOLECYSTECTOMY 02/05/1999 Cholecystectomy laparoscopic ESOPHAGOGASTRODUODENOSCOP Y TRANSORAL DIAGNOSTIC 05/12/2015 EGD HYSTERECTOMY HX LITHOTRIPSY [...] bilaterally.Negative Fabere sign bilaterally ASSESSMENT: claim # [id number] DOI: 03/09/2008 Allowed diagnosis: S43.401A, S33.5XXA, S40.011A, S50.11XA, S30.0XA, S46.011A, M54.17, S43.431A, M25.811, M51.27, M75.41, M19.077, M48.061 (S33.5XXS) Lumbar sprain, sequela (primary encounter diagnosis) (M48.061) Spinal stenosis, lumbar region, without neurogenic claudication (M54.42, M54.41, G89.29) Chronic bilateral low back pain with bilateral sciati (more content not included)... Normal [facility] Basophil percentageOrdered B y: Dr. Peace on 07-14-2022 Bilirubin [Mass/Vol] 0.40 mg/dL 0.20-1.00 [facility] Comment on above: For patients on eltr ombopag therapy, use of Dimension [place] TBIL is not recommended. Chloride [Moles/Vol] 110 mmol/L 98-107 [facility] Glucose [Mass/Vol] 112 mg/dL 74-106 [facility] Comment on above: Fasting Glucose resu lt from 100 to 125 mg/dL suggests IMPAIRED HOMEOSTASIS per A.D.A. criteria. Potassium [Moles/Vol] 5.0 mmol/L 3.5-5.1 [facility] Protein [Mass/Vol] 7.7 g/dL 6.4-8.2 [facility] Sodium [Moles/Vol] 138 mmol/L 136-145 [facility] Laboratory - Chemistry and C hemistry - challengeOrdered By: Dr. Peace on 07-14-2022 ALP [Catalytic activity/Vol] 34 U/L 45-117 [facility] ALT [Catalytic activity/Vol] 28 U/L 13-56 [facility] CO2 [Moles/Vol] 21.0 mmol/L 21.0-32.0 [facility] Globulin (S) [Mass/Vol] 4.1 g/dL 2.2-4.2 [facility] Urea nitrogen/Creatinine [Mass ratio] 17.5 mg/mg 10-20 [facility] No Panel InformationOrdered By: Dr. Pecae on 07-14-2022 Estimated GFR (MDRD) Amer 50 mL/min >60 [facility] Comment on above: GFR Calc Estimated GFR (MDRD) Non-Af Amer 41 mL/min >60 [facility] Comment on above: Non- GFR Calc Parathyroid Hormone (Intact) 22.4 pg/mL 18.4-80.1 [facility] Vitamin D 25-Hydroxy 66.8 ng/mL [facility] Comment on above: Vitamin D 25(OH) Sta tus Range Deficiency <20 ng/mL (50nmol/L) Insufficiency 20 - 30 ng/mL (50 - 75 nmol/L) Sufficiency 30 - 100 ng/mL (75 - 250 nmol/L) Toxicity >100 ng/mL (>250 nmol/L) Serum or plasma albumin jesus urement (mass/volume)Ordered By: Dr. Peace on 07-14-2022 Albumin [Mass/Vol] 3.6 g/dL 3.2-5.0 [facility] Serum or plasma albumin/glob ulin mass ratioOrdered By: Dr. Peace on 07-14-2022 Albumin/Globulin [Mass ratio] 0.9 {ratio} 0.9-2.4 [facility] Serum or plasma calcium jesus urement (mass/volume)Ordered By: Dr. Peace on 07-14-2022 Calcium [Mass/Vol] 11.0 mg/dL 8.5-10.1 [facility] Serum or plasma creatinine m easurement (mass/volume)Ordered By: Dr. Peace on 07-14-2022 Creatinine [Mass/Vol] 1.37 mg/dL 0.55-1.02 [facility] Comment on above: The validity of the calculated GFR & GFRAA in patients over 70 years has not been determined. Clinical correlation is essential. Serum or plasma urea nitroge n measurement (mass/volume)Ordered By: Dr. Peace on 07-14-2022 Urea nitrogen [Mass/Vol] 24 mg/dL 7-18 [facility] Thin prep Papanicolaou smear with manual screeningOrdered By: Dr. Peace on 07-14-2022 Thin prep Papanicolaou smear with manual screening 32 U/L 15 [facility] Thin prep Papanicolaou smear with manual screening 7 5-15 [facility] Whole blood hemoglobin A1c/t otal hemoglobin ratio (mass fraction)Ordered By: Dr. Peace on 06-30-2022 HbA1c (Bld) [Mass fraction] 7.2 % 3.8-5.6 [facility] Comment on above: Normal < 5.7 % Predi abetic 5.7 - 6.4 % Diabetic >or= 6.5 % Please note range changes. Basophil percentageOrdered B y: ENRICO VÁZQUEZ on 06-01-2022 Bilirubin [Mass/Vol] 0.40 mg/dL 0.20-1.00 [facility] Comment on above: For patients on eltr ombopag therapy, use of Dimension [place] TBIL is not recommended. Chloride [Moles/Vol] 108 mmol/L 98-107 [facility] Cholesterol [Mass/Vol] 152 mg/dL <200 [facility] Comment on above: <200 mg/dL Desirable 200-240 mg/dL Borderline >240 mg/dL High Risk Glucose [Mass/Vol] 135 mg/dL 74-106 [facility] Comment on above: Fasting Glucose resu lt greater than or equal to 126 mg/dL suggests DIABETES MELLITUS per A.D.A. criteria. Potassium [Moles/Vol] 5.2 mmol/L 3.5-5.1 [facility] Protein [Mass/Vol] 8.1 g/dL 6.4-8.2 [facility] Sodium [Moles/Vol] 138 mmol/L 136-145 [facility] Triglyceride [Mass/Vol] 321 mg/dL <199 [facility] Comment on above: The drugs N-Acetylcy steine and Metamizole may falsely depress this assay.Serum Triglycerides Reference Interval Normal <150 mg/dL Borderline high 150 - 199 mg/dL High 200 - 499 mg/dL Very High > or = 500 mg/dL WBC (Bld) [#/Vol] 5.5 10*3/uL 4.4-11.0 [facility] Blood erythrocytes count (nu mber/volume)Ordered By: [facility] on 06-01-2022 RBC (Bld) [#/Vol] 4.07 10*6/uL 4.2-5.4 [facility] Blood hemoglobin measurement (mass/volume)Ordered By: [facility] on 06-01-2022 Hemoglobin (Bld) [Mass/Vol] 11.6 g/dL 12.0-15.0 [facility] Blood platelet mean volumeOr dered By: [facility] on 06-01-2022 Platelet mean volume (Bld) [Entitic vol] 10.5 fL 6.2-12.0 [facility] Determination of erythrocyte mean corpuscular volume (MCV)Ordered By: [facility] on 06-01-2022 MCV (RBC) [Entitic vol] 90.7 fL 81-99 [facility] Hematocrit Auto (Bld) [Volum e fraction]Ordered By: [facility] on 06-01-2022 Hematocrit (Bld) [Volume fraction] 36.9 % 37-47 [facility] Laboratory - Chemistry and C hemistry - challengeOrdered By: [facility] on 06-01-2022 ALP [Catalytic activity/Vol] 27 U/L 45-117 [facility] ALT [Catalytic activity/Vol] 37 U/L 13-56 [facility] CO2 [Moles/Vol] 26.0 mmol/L 21.0-32.0 [facility] Globulin (S) [Mass/Vol] 4.6 g/dL 2.2-4.2 [facility] Magnesium [Mass/Vol] 1.8 mg/dL 1.6-2.6 [facility] Urea nitrogen/Creatinine [Mass ratio] 14.0 mg/mg 10-20 [facility] Laboratory - Hematology and Cell countsOrdered By: [facility] on 06-01-2022 Erythrocyte distribution width (RBC) [Entitic vol] 51.1 fL 35.1-43.9 [facility] Erythrocyte distribution width (RBC) [Ratio] 15.5 % 11.6-14.6 [facility] MCH (RBC) [Entitic mass] 28.5 pg 27.0-32.0 [facility] MCHC Auto (RBC) [Mass/Vol]Or dered By: ENRICO VÁZQUEZ on 06-01-2022 MCHC (RBC) [Mass/Vol] 31.4 g/dL 32-36 [facility] No Panel InformationOrdered By: ENRICO VÁZQUEZ on 06-01-2022 Estimated GFR (MDRD) Amer 50 mL/min >60 [facility] Comment on above: GFR Calc Estimated GFR (MDRD) Non-Af Amer 42 mL/min >60 [facility] Comment on above: Non- GFR Calc Thyroid Stimulating Hormone (TSH) 3.33 uIU/mL 0.358-3.74 [facility] Vitamin D 25-Hydroxy 68.8 ng/mL [facility] Comment on above: Vitamin D 25(OH) Sta tus Range Deficiency <20 ng/mL (50nmol/L) Insufficiency 20 - 30 ng/mL (50 - 75 nmol/L) Sufficiency 30 - 100 ng/mL (75 - 250 nmol/L) Toxicity >100 ng/mL (>250 nmol/L) Platelets bldOrdered By: VISHAL PATEL on 06-01-2022 Platelets (Bld) [#/Vol] 164 10*3/uL 150-450 [facility] Serum or plasma albumin jesus urement (mass/volume)Ordered By: ENRICO VÁZQUEZ on 06-01-2022 Albumin [Mass/Vol] 3.5 g/dL 3.2-5.0 [facility] Serum or plasma albumin/glob ulin mass ratioOrdered By: ENRICO KARLSRUHE on 06-01-2022 Albumin/Globulin [Mass ratio] 0.8 {ratio} 0.9-2.4 [facility] Serum or plasma calcium jesus urement (mass/volume)Ordered By: ENRICO VÁZQUEZ on 06-01-2022 Calcium [Mass/Vol] 11.3 mg/dL 8.5-10.1 [facility] Serum or plasma cholesterol in HDL measurement (mass/volume)Ordered By: ENRICO VÁZQUEZ on 06-01-2022 Cholesterol in HDL [Mass/Vol] 38 mg/dL >40 [facility] Comment on above: The drugs N-Acetylcy steine and Metamizole may falsely depress this assay. Reference Range HDL <40 mg/dL Low HDL Cholesterol HDL >or= 60 mg/dL High HDL Cholesterol Serum or plasma cholesterol in VLDL measurement (mass/volume)Ordered By: [facility] on 06-01-2022 Cholesterol in VLDL [Mass/Vol] 64 mg/dL 5-40 [facility] Serum or plasma creatinine m easurement (mass/volume)Ordered By: [facility] on 06-01-2022 Creatinine [Mass/Vol] 1.36 mg/dL 0.55-1.02 [facility] Comment on above: The validity of the calculated GFR & GFRAA in patients over 70 years has not been determined. Clinical correlation is essential. Serum or plasma low density lipoprotein (LDL) cholesterol measurement (mass/volume)Ordered By: [facility] on 06-01-2022 Cholesterol in LDL [Mass/Vol] 50 mg/dL 0-130 [facility] Serum or plasma urea nitroge n measurement (mass/volume)Ordered By: [facility] on 06-01-2022 Urea nitrogen [Mass/Vol] 19 mg/dL 7-18 [facility] Thin prep Papanicolaou smear with manual screeningOrdered By: [facility] on 06-01-2022 Thin prep Papanicolaou smear with manual screening 39 U/L 15-37 [facility] Thin prep Papanicolaou smear with manual screening 4 5-15 [facility] CNOVon 05-17-2022 NEO Office Visit (KAM ) ----- ESTELA KENNEY ([id number]) 1960 F Date Time Provider Department 05/17/22 2:15 PM RHONDA MCNEAL During your visit today, we recorded the following information about you: Pulse Respiration Blood pressure Weight 101/minute 19/minute 138/68 75.8 kg Height 1.554 m Rhonda Mcneal, [employer]AT [employer].MANGANESE BREAKER 05/17/2022 2:41 PM Signed SUBJECTIVE: Estela Kenney presents to [facility] Pain Management Department for a follow-up appointment for back pain [facility] Last seen by tori dumont [...] , low transverse CHOLECYSTECTOMY 02/05/1999 Cholecystectomy laparoscopic ESOPHAGOGASTRODUODENOSCOP Y TRANSORAL DIAGNOSTIC 05/12/2015 EGD HYSTERECTOMY HX LITHOTRIPSY [...] daughter Psych: Mood and affect appropriate. Skin: [place], warm, and dry Pulm: no conversational shortness [...] Negative Fabere sign bilaterally ASSESSMENT: claim # [id number] DOI: 03/09/2008 Allowed diagnosis: S43.401A, S33.5XXA, S40.011A, S50.11XA, S30.0XA, S46.011A, M54.17, S43.431A, M25.811, M51.27, M75.41, M19.077, M48.061 (M48.061) Spinal stenosis, lumbar region (more content not included)... Normal [facility] Laboratory - Hematology and Cell countson 03-21-2022 HbA1c (Bld) [Mass fraction] 7.1 % 4.2-6.3 [facility] BRIEF OP NOTon 02-16-2022 BRIEF OP NOT HNO ID: [id number] Author: Lina Lam DO Service: Pain Management Author Type: Physician Type: Brief Op Note Filed: 02/16/2022 3:18 PM Note Text: ----- Summary: left lumbar selective nerve root block at L3-S1. ----- PROCEDURE: left lumbar selective nerve root block [...] with supervision to home in good condition. [facility] NURSING PROGon 02-16-2022 NURSING PROG HNO ID: [id number] Author: Jackie Mahan RN Service: Pain Management [...] pt inside and caring for her. Dr Lam is aware and pt was discharged home via wheelchair with daughter. Jackie Mahan RN [facility] NURSING PROG HNO ID: [id number] Author: Kristyn Edwards RN Service: ? Author Type: Registered Nurse Type: Nursing Progress Note Filed: 02/16/2022 2:44 PM Note Text: ----- Summary: preinjection update/assessment ----- 1420 Pt states that she is to have left sided injection today; chart review done with Dr. Lam and per [facility] left side injection is indicated on revised/updated extension. 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 Pt states that FBS @ 1355 was 189 and per inventory accountant preprocedure instruction took 10 units lantus insulin preprocedure. Pt has not held metformin last night or this AM. Pt states that she has held baby ASA x5 days and is not on any other bloodthinners. Kristyn Edwards RN [facility] XR FLUOROSCOPYon 02-16-2022 XR FLUOROSCOPY * * *Final Report* * * DATE OF EXAM: Feb 16 2022 3:17PM RHX [id number] - XR FLUOROSCOPY / PROCEDURE REASON: LUMBAR RADICULOPATHY * * * * Physician Interpretation * * * * XR FLUOROSCOPY Ordering Physician: LINA LAM FLUOROSCOPY AND RADIOGRAPHS UTILIZED IN PAIN MANAGEMENT Clinical Statement: Lumbar radiculopathy FINDINGS: 37.1 second fluoroscopy time utilized. A total of 5 images were obtained during pain management procedure IMPRESSION: Documentation of fluoroscopy and radiographs utilized in pain management. Please see clinician's report for complete details. Evening Or Night Nurse Supervisor: PSCB Transcribe Date/Time: Feb 16 2022 3:45P Dictated by : DANO DU MD This examination was interpreted and the report reviewed and electronically signed by: DANO DU MD on Feb 16 2022 3:45PM EST [id number] [facility] CNOVon 02-15-2022 CNOV Office Visit (KAM ) ----- ESTELA KENNEY ([id number]) 1960 F Date Time Provider Department 02/15/22 2:30 PM RHONDA MCNEAL During your visit today, we recorded the following information about you: Pulse Blood pressure 105/minute 131/80 Rhonda Mcneal APRN.MANGANESE BREAKER 02/15/2022 3:34 PM Signed SUBJECTIVE: Estela Kenney presents to [facility] Pain Management Department for a follow-up appointment for back pain [facility] Last seen by me on [...] , low transverse CHOLECYSTECTOMY 02/05/1999 Cholecystectomy laparoscopic ESOPHAGOGASTRODUODENOSCOP Y TRANSORAL DIAGNOSTIC 05/12/2015 EGD HYSTERECTOMY HX LITHOTRIPSY [...] Negative Fabere sign bilaterally ASSESSMENT: claim # [id number] DOI: 03/09/2008 Allowed diagnosis: S43.401A, S33.5XXA, S40.011A, [...] office T (more content not included)... Normal [facility] Albumin Elph [Mass/Vol]on Albumin [Mass/Vol] Not Reportable [facility] Work Phone: Basophil percentageon 2021 Bilirubin [Mass/Vol] 0.50 mg/dL 0.20-1.00 [facility] Work Phone: Comment on above: For patients on eltr ombopag therapy, use of Dimension [place] TBIL is not recommended. Chloride [Moles/Vol] 105 mmol/L 98-107 [facility] Work Phone: Cholesterol [Mass/Vol] 136 mg/dL <200 [facility] Work Phone: Comment on above: <200 mg/dL Desirable 200-240 mg/dL Borderline >240 mg/dL High Risk Glucose [Mass/Vol] 143 mg/dL 74-106 [facility] Work Phone: Comment on above: Fasting Glucose resu lt greater than or equal to 126 mg/dL suggests DIABETES MELLITUS per A.D.A. criteria. Potassium [Moles/Vol] 5.0 mmol/L 3.5-5.1 [facility] Work Phone: Protein [Mass/Vol] 7.6 g/dL 6.4-8.2 [facility] Work Phone: Sodium [Moles/Vol] 136 mmol/L 136-145 [facility] Work Phone: Triglyceride [Mass/Vol] 219 mg/dL <199 [facility] Work Phone: Comment on above: The drugs N-Acetylcy steine and Metamizole may falsely depress this assay.Serum Triglycerides Reference Interval Normal <150 mg/dL Borderline high 150 - 199 mg/dL High 200 - 499 mg/dL Very High > or = 500 mg/dL Interpretation of serum or p lasma protein pattern by immunofixation (narrative resulton 01-02-2022 Protein Fractions Immunofixation Orlin [Interp] Not Reportable [facility] Work Phone: Laboratory - Chemistry and C hemistry - challengeon 01-02-2022 ALP [Catalytic activity/Vol] 30 U/L 45-117 [facility] Work Phone: ALT [Catalytic activity/Vol] 48 U/L 13-56 [facility] Work Phone: CO2 [Moles/Vol] 20.0 mmol/L 21.0-32.0 [facility] Work Phone: Globulin (S) [Mass/Vol] 4.0 g/dL 2.2-4.2 [facility] Work Phone: Urea nitrogen/Creatinine [Mass ratio] 18.7 mg/mg 10-20 [facility] Work Phone: Laboratory - Hematology and Cell countson 01-02-2022 HbA1c (Bld) [Mass fraction] 8.0 % 4.2-6.3 [facility] Work Phone: No Panel Informationon 01-02 Estimated GFR (MDRD) Amer 39 mL/min >60 [facility] Work Phone: Comment on above: GFR Calc Estimated GFR (MDRD) Non-Af Amer 32 mL/min >60 [facility] Work Phone: Comment on above: Non- GFR Calc Miscellaneous Test See comment [facility] Work Phone: Comment on above: TEST RESULT LIMITSPT HrP (PTH-Related Peptide) < 2.0 pmol/LThis test was developed and its performance characteristicsdetermined by [employer]. It has not been cleared or approvedby the Food and Drug Administration.Reference Range:All Ages: <2.0The PTHrP assay should not be used to exclude cancer orscreen tumor patients for humoral hypercalcemia ofmalignancy (HHM). The results should always be assessed inconjunction with the patient's medical history, clinicalexamination, and other findings. If test results areclinically discordant, please contact the laboratory. [facility] ORIGINAL REPORT ON FILE IN LAB CONTAINS ADDITIONAL TEST SITE INFORMATION. Parathyroid Hormone (Intact) 42.9 pg/mL 18.4-80.1 [facility] Work Phone: Urine Microalbumin/Creatinine Ratio 18.9 mg/g CRE <30 [facility] Work Phone: Vitamin D 25-Hydroxy 42.3 ng/mL [facility] Work Phone: Comment on above: Vitamin D 25(OH) Sta tus Range Deficiency <20 ng/mL (50nmol/L) Insufficiency 20 - 30 ng/mL (50 - 75 nmol/L) Sufficiency 30 - 100 ng/mL (75 - 250 nmol/L) Toxicity >100 ng/mL (>250 nmol/L) Serum [id number] measu rement by electrophoresison 01-02-2022 Alpha 1 globulin Elph [Mass/Vol] Not Reportable [facility] Work Phone: Serum or plasma IgA measurem ent (mass/volume)on 01-02-2022 IgA [Mass/Vol] Not Reportable [facility] Work Phone: Serum or plasma IgG measurem ent (mass/volume)on 01-02-2022 IgG [Mass/Vol] Not Reportable [facility] Work Phone: Serum or plasma IgM measurem ent (mass/volume)on 01-02-2022 IgM [Mass/Vol] Not Reportable [facility] Work Phone: Serum or plasma albumin jesus urement (mass/volume)on 01-02-2022 Albumin [Mass/Vol] 3.6 g/dL 3.2-5.0 [facility] Work Phone: Serum or plasma albumin/glob ulin mass ratioon 01-02-2022 Albumin/Globulin [Mass ratio] 0.9 {ratio} 0.9-2.4 [facility] Work Phone: Serum or plasma beta globuli n measurement by electrophoresis (mass/volume)on 01-02-2022 Beta globulin Elph [Mass/Vol] Not Reportable [facility] Work Phone: Serum or plasma calcium jesus urement (mass/volume)on 01-02-2022 Calcium [Mass/Vol] 10.5 mg/dL 8.5-10.1 [facility] Work Phone: Serum or plasma cholesterol in HDL measurement (mass/volume)on 01-02-2022 Cholesterol in HDL [Mass/Vol] 42 mg/dL >40 [facility] Work Phone: Comment on above: The drugs N-Acetylcy steine and Metamizole may falsely depress this assay. Reference Range HDL <40 mg/dL Low HDL Cholesterol HDL >or= 60 mg/dL High HDL Cholesterol Serum or plasma cholesterol in VLDL measurement (mass/volume)on 01-02-2022 Cholesterol in VLDL [Mass/Vol] 44 mg/dL 5-40 [facility] Work Phone: Serum or plasma creatinine m easurement (mass/volume)on 01-02-2022 Creatinine [Mass/Vol] 1.71 mg/dL 0.55-1.02 [facility] Work Phone: Comment on above: The validity of the calculated GFR & GFRAA in patients over 70 years has not been determined. Clinical correlation is essential. Serum or plasma gamma globul in measurement by electrophoresis (mass/volume)on 01-02-2022 Gamma globulin Elph [Mass/Vol] Not Reportable [facility] Work Phone: Serum or plasma low density lipoprotein (LDL) cholesterol measurement (mass/volume)on 01-02-2022 Cholesterol in LDL [Mass/Vol] 50 mg/dL 0-130 [facility] Work Phone: Serum or plasma urea nitroge n measurement (mass/volume)on 01-02-2022 Urea nitrogen [Mass/Vol] 32 mg/dL 7-18 [facility] Work Phone: Thin prep Papanicolaou smear with manual screeningon 01-02-2022 Thin prep Papanicolaou smear with manual screening 50 U/L 15-37 [facility] Work Phone: Thin prep Papanicolaou smear with manual screening 11 5-15 [facility] Work Phone: Thin prep Papanicolaou smear with manual screening 35.4 mg/L NO RANGE EST. [facility] Work Phone: Thin prep Papanicolaou smear with manual screening Not Reportable [facility] Work Phone: Total protein bloodon 2021 Protein [Mass/Vol] See comment [facility] Work Phone: Comment on above: TEST RESULT LIMITSIF E and PE, SerumImmunoglobulin G, Qn, Serum 1111 mg/dL [id number] A, Qn, Serum 250 mg/dL 87-352Immunoglobulin M, Qn, Serum 244 High mg/dL 26-217Protein, Total 7.3 g/dL 6.0-8.5Albumin 3.7 g/dL 2.9-4.7Wrlxg-3-Lesfegfc 0.3 g/dL 0.0-0.9Iillm-2-Nisufxtb 1.0 g/dL 0.4-1.0Beta Globulin 1.1 g/dL 0.7-1.3Gamma Globulin 1.2 g/dL 0.4-1.8M-Neymar Not Observed g/dL Not ObservedGlobulin, Total 3.6 g/dL 2.2-3.9A/G Ratio 1.1 0.7-1.7Immunofixation Result, Serum No monoclonality detected.Please note: Protein electrophoresis scan will follow via computer, mail, or preflight inspector delivery. TESTING PERFORMED AT [facility]. ORIGINAL REPORT ON FILE IN LAB CONTAINS ADDITIONAL TEST SITE INFORMATION. Urine creatinine measurement (mass/volume)on 01-02-2022 Creatinine (U) [Mass/Vol] 187.00 mg/dL NO RANGE EST. [facility] Work Phone: Basophil percentageon 2021 Chloride [Moles/Vol] 105 mmol/L 98-[address] [facility] Work Phone: Glucose [Mass/Vol] 223 mg/dL 74-106 [place] [facility] Work Phone: Comment on above: Glucose result great er than or equal to 200 mg/dLsuggests DIABETES MELLITUS per A.D.A. criteria. Potassium [Moles/Vol] 5.0 mmol/L 3.5-5.1 [facility] Work Phone: Sodium [Moles/Vol] 137 mmol/L 136-145 [facility] Work Phone: Laboratory - Chemistry and C hemistry - challengeon 07-26-2021 CO2 [Moles/Vol] 23.0 mmol/L 21.0-32.0 [facility] Work Phone: Urea nitrogen/Creatinine [Mass ratio] 17.6 mg/mg 10-20 [facility] Work Phone: No Panel Informationon 07-26 Estimated GFR (MDRD) Amer 56 mL/min >60 [facility] Work Phone: Comment on above: GFR Calc Estimated GFR (MDRD) Non-Af Amer 46 mL/min >60 [facility] Work Phone: Comment on above: Non- GFR Calc Parathyroid Hormone (Intact) 14.3 pg/mL 18.4-80.1 [facility] Work Phone: Vitamin D 25-Hydroxy 36.2 ng/mL [facility] Work Phone: Comment on above: Vitamin D 25(OH) Sta tus Range Deficiency <20 ng/mL (50nmol/L) Insufficiency 20 - 30 ng/mL (50 - 75 nmol/L) Sufficiency 30 - 100 ng/mL (75 - 250 nmol/L) Toxicity >100 ng/mL (>250 nmol/L) Serum or plasma calcium jesus urement (mass/volume)on 07-26-2021 Calcium [Mass/Vol] 11.9 mg/dL 8.5-10.1 [facility] Work Phone: Serum or plasma creatinine m easurement (mass/volume)on 07-26-2021 Creatinine [Mass/Vol] 1.25 mg/dL 0.55-1.02 [facility] Work Phone: Comment on above: The validity of the calculated GFR & GFRAA in patients over 70 years has not been determined. Clinical correlation is essential. Serum or plasma urea nitroge n measurement (mass/volume)on 07-26-2021 Urea nitrogen [Mass/Vol] 22 mg/dL 7-18 [facility] Work Phone: [phone] Thin prep Papanicolaou smear with manual screeningon 07-26-2021 Thin prep Papanicolaou smear with manual screening 9 5-15 [facility] Work Phone: Absolute lymphocyte counton 04-10-2021 Lymphocytes Auto (Unsp spec) [#/Vol] 4.07 10*3/uL 0.83-4.51 [facility] Work Phone: Basophil percentageon 2021 Basophils/100 WBC (Bld) 0.8 % 0-1 [facility] Work Phone: Eosinophils/100 WBC (Bld) 5.0 % 0-5 [facility] Work Phone: [phone] Neutrophils (Bld) [#/Vol] 3.2 10*3/uL 2.0-7.7 [facility] Work Phone: [phone] Neutrophils/100 WBC (Bld) 38.1 % 47-70 [facility] Work Phone: [phone] WBC (Bld) [#/Vol] 8.4 10*3/uL 4.4-11.0 [facility] Work Phone: Blood erythrocytes count (nu mber/volume)on 04-10-2021 RBC (Bld) [#/Vol] 4.09 10*6/uL 4.2-5.4 [facility] Work Phone: [phone] Blood hemoglobin measurement (mass/volume)on 04-10-2021 Hemoglobin (Bld) [Mass/Vol] 13.7 g/dL 12.0-15.0 [facility] Work Phone: [phone] Blood lymphocytes/100 leukoc yteson 04-10-2021 Lymphocytes/100 WBC (Bld) 48.2 % 19-41 [facility] Work Phone: Blood monocytes/100 leukocyt eson 04-10-2021 Monocytes/100 WBC (Bld) 7.5 % 0-10 [facility] Work Phone: Blood platelet mean volumeon 04-10-2021 Platelet mean volume (Bld) [Entitic vol] 10.5 fL 6.2-12.0 [facility] Work Phone: Determination of erythrocyte mean corpuscular volume (MCV)on 04-10-2021 MCV (RBC) [Entitic vol] 101.2 fL 81-99 [facility] Work Phone: Hematocrit Auto (Bld) [Volum e fraction]on 04-10-2021 Hematocrit (Bld) [Volume fraction] 41.4 % 37-47 [facility] Work Phone: Laboratory - Chemistry and C hemistry - challengeon 04-10-2021 Natriuretic peptide B (Bld) [Mass/Vol] 24.6 pg/mL 0-100 [facility] Work Phone: Laboratory - Hematology and Cell countson 04-10-2021 Erythrocyte distribution width (RBC) [Entitic vol] 51.7 fL 35.1-43.9 [facility] Work Phone: Erythrocyte distribution width (RBC) [Ratio] 14.1 % 11.6-14.6 [facility] Work Phone: Immature granulocytes/100 WBC (Bld) 0.400 % 0.0-0.9 [facility] Work Phone: Comment on above: IG% - Immature Granu locytes (promyelocytes, myelocytes and metamyelocytes) > 1% indicates that a LEFT SHIFT is Present. MCH (RBC) [Entitic mass] 33.5 pg 27.0-32.0 [facility] Work Phone: Nucleated RBC/100 WBC (Bld) [Ratio] 0 % 0-5 [facility] Work Phone: MCHC Auto (RBC) [Mass/Vol]on 04-10-2021 MCHC (RBC) [Mass/Vol] 33.1 g/dL 32-36 [facility] Work Phone: Platelets bldon 04-10-2021 Platelets (Bld) [#/Vol] 222 10*3/uL 150-450 [facility] Work Phone: No Panel Informationon 03-18 Miscellaneous Test See comment [facility] Work Phone: Comment on above: TEST RESULT LIMITSCr eatinine, 24 Hour UrineCreatinine, Urine 72.2 mg/dL Not EstabCreatinine, Ur 24hr 830 mg/24 hr 800-1800 ____ TESTING PERFORMED AT [facility]. ORIGINAL REPORT ON FILE IN LAB CONTAINS ADDITIONAL TEST SITE INFORMATION. Basophil percentageon 2021 Bilirubin [Mass/Vol] 0.30 mg/dL 0.20-1.00 [facility] Work Phone: Comment on above: For patients on eltr ombopag therapy, use of Dimension [place] TBIL is not recommended. Chloride [Moles/Vol] 104 mmol/L 98-107 [facility] Work Phone: Glucose [Mass/Vol] 185 mg/dL 74-106 [facility] Work Phone: Comment on above: Fasting Glucose resu lt greater than or equal to 126 mg/dL suggests DIABETES MELLITUS per A.D.A. criteria. Potassium [Moles/Vol] 4.9 mmol/L 3.5-5.1 [facility] Work Phone: Protein [Mass/Vol] 7.7 g/dL 6.4-8.2 [facility] Work Phone: Sodium [Moles/Vol] 138 mmol/L 136-145 [facility] Work Phone: Laboratory - Chemistry and C hemistry - challengeon 03-16-2021 ALP [Catalytic activity/Vol] 39 U/L 45-117 [facility] Work Phone: ALT [Catalytic activity/Vol] 39 U/L 13-56 [facility] Work Phone: CO2 [Moles/Vol] 26.0 mmol/L 21.0-32.0 [facility] Work Phone: Globulin (S) [Mass/Vol] 4.2 g/dL 2.2-4.2 [facility] Work Phone: Urea nitrogen/Creatinine [Mass ratio] 18.6 mg/mg 10-20 [facility] Work Phone: No Panel Informationon 03-16 Estimated GFR (MDRD) Amer 71 mL/min >60 [facility] Work Phone: Comment on above: GFR Calc Estimated GFR (MDRD) Non-Af Amer 58 mL/min >60 [facility] Work Phone: Comment on above: Non- GFR Calc Ionized Calcium 6.2 mg/dL [facility] Work Phone: Comment on above: Performed at: - [address] [id number] Director: Alvarado Carrillo PhD, Phone: [phone] Parathyroid Hormone (Intact) 30.3 pg/mL 18.4-80.1 [facility] Work Phone: Vitamin D 25-Hydroxy 27.4 ng/mL [facility] Work Phone: Comment on above: Vitamin D 25(OH) Sta tus Range Deficiency <20 ng/mL (50nmol/L) Insufficiency 20 - 30 ng/mL (50 - 75 nmol/L) Sufficiency 30 - 100 ng/mL (75 - 250 nmol/L) Toxicity >100 ng/mL (>250 nmol/L) Serum or plasma albumin jesus urement (mass/volume)on 03-16-2021 Albumin [Mass/Vol] 3.5 g/dL 3.2-5.0 [facility] Work Phone: Serum or plasma albumin/glob ulin mass ratioon 03-16-2021 Albumin/Globulin [Mass ratio] 0.8 {ratio} 0.9-2.4 [facility] Work Phone: Serum or plasma calcium jesus urement (mass/volume)on 03-16-2021 Calcium [Mass/Vol] 11.0 mg/dL 8.5-10.1 [facility] Work Phone: Serum or plasma creatinine m easurement (mass/volume)on 03-16-2021 Creatinine [Mass/Vol] 1.02 mg/dL 0.55-1.02 [facility] Work Phone: Comment on above: The validity of the calculated GFR & GFRAA in patients over 70 years has not been determined. Clinical correlation is essential. Serum or plasma urea nitroge n measurement (mass/volume)on 03-16-2021 Urea nitrogen [Mass/Vol] 19 mg/dL 7-18 [facility] Work Phone: Thin prep Papanicolaou smear with manual screeningon 03-16-2021 Thin prep Papanicolaou smear with manual screening 32 U/L 15-37 [facility] Work Phone: Thin prep Papanicolaou smear with manual screening 8 5-15 [facility] Work Phone: Absolute lymphocyte counton 02-28-2021 Lymphocytes Auto (Unsp spec) [#/Vol] 4.67 10*3/uL 0.83-4.51 [facility] Work Phone: Basophil percentageon 2021 Basophils/100 WBC (Bld) 0.5 % 0-1 [facility] Work Phone: Chloride [Moles/Vol] 103 mmol/L 98-107 [facility] Work Phone: Eosinophils/100 WBC (Bld) 1.6 % 0-5 [facility] Work Phone: Glucose [Mass/Vol] 139 mg/dL 74-106 [facility] Work Phone: Comment on above: Fasting Glucose resu lt greater than or equal to 126 mg/dL suggests DIABETES MELLITUS per A.D.A. criteria. Neutrophils (Bld) [#/Vol] 6.2 10*3/uL 2.0-7.7 [facility] Work Phone: Neutrophils/100 WBC (Bld) 49.3 % 47-70 [facility] Work Phone: Potassium [Moles/Vol] 4.7 mmol/L 3.5-5.1 [facility] Work Phone: Sodium [Moles/Vol] 137 mmol/L 136-145 [facility] Work Phone: WBC (Bld) [#/Vol] 12.5 10*3/uL 4.4-11.0 [facility] Work Phone: Blood erythrocytes count (nu mber/volume)on 02-28-2021 RBC (Bld) [#/Vol] 4.54 10*6/uL 4.2-5.4 [facility] Work Phone: Blood hemoglobin measurement (mass/volume)on 02-28-2021 Hemoglobin (Bld) [Mass/Vol] 15.1 g/dL 12.0-15.0 [facility] Work Phone: Blood lymphocytes/100 leukoc yteson 02-28-2021 Lymphocytes/100 WBC (Bld) 37.3 % 19-41 [facility] Work Phone: Blood monocytes/100 leukocyt eson 02-28-2021 Monocytes/100 WBC (Bld) 10.1 % 0-10 [facility] Work Phone: Blood platelet mean volumeon 02-28-2021 Platelet mean volume (Bld) [Entitic vol] 10.0 fL 6.2-12.0 [facility] Work Phone: Determination of erythrocyte mean corpuscular volume (MCV)on 02-28-2021 MCV (RBC) [Entitic vol] 99.6 fL 81-99 [facility] Work Phone: Hematocrit Auto (Bld) [Volum e fraction]on 02-28-2021 Hematocrit (Bld) [Volume fraction] 45.2 % 37-47 [facility] Work Phone: Laboratory - Chemistry and C hemistry - challengeon 02-28-2021 CO2 [Moles/Vol] 24.0 mmol/L 21.0-32.0 [facility] Work Phone: Urea nitrogen/Creatinine [Mass ratio] 25.8 mg/mg 10-20 [facility] Work Phone: Laboratory - Hematology and Cell countson 02-28-2021 Erythrocyte distribution width (RBC) [Entitic vol] 51.3 fL 35.1-43.9 [facility] Work Phone: Erythrocyte distribution width (RBC) [Ratio] 14.2 % 11.6-14.6 [facility] Work Phone: Immature granulocytes/100 WBC (Bld) 1.200 % 0.0-0.9 [facility] Work Phone: Comment on above: IG% - Immature Granu locytes (promyelocytes, myelocytes and metamyelocytes) > 1% indicates that a LEFT SHIFT is Present. MCH (RBC) [Entitic mass] 33.3 pg 27.0-32.0 [facility] Work Phone: Nucleated RBC/100 WBC (Bld) [Ratio] 0.2 % 0-5 [facility] Work Phone: MCHC Auto (RBC) [Mass/Vol]on 02-28-2021 MCHC (RBC) [Mass/Vol] 33.4 g/dL 32-36 [facility]: No Panel Informationon 02-28 Estimated GFR (MDRD) Amer 59 mL/min >60 [facility] Work Phone: Comment on above: GFR Calc Estimated GFR (MDRD) Non-Af Amer 48 mL/min >60 [facility] Work Phone: Comment on above: Non- GFR Calc Platelets bldon 02-28-2021 Platelets (Bld) [#/Vol] 251 10*3/uL 150-450 [facility] Work Phone: Serum or plasma calcium jesus urement (mass/volume)on 02-28-2021 Calcium [Mass/Vol] 11.2 mg/dL 8.5-10.1 [facility] Work Phone: Serum or plasma creatinine m easurement (mass/volume)on 02-28-2021 Creatinine [Mass/Vol] 1.20 mg/dL 0.55-1.02 [facility] Work Phone: Comment on above: The validity of the calculated GFR & GFRAA in patients over 70 years has not been determined. Clinical correlation is essential. Serum or plasma urea nitroge n measurement (mass/volume)on 02-28-2021 Urea nitrogen [Mass/Vol] 31 mg/dL 7-18 [facility] Work Phone: Thin prep Papanicolaou smear with manual screeningon 02-28-2021 Thin prep Papanicolaou smear with manual screening 10 5-15 [facility] Work Phone: FLUOROSCOPY IN OR/PAIN MGTon 02-24-2021 FLUOROSCOPY IN OR/PAIN MGT FLUOROSCOPY IN OR/PAIN MGT Ordering Physician: Lina Lam, DO FLUOROSCOPY Clinical Statement: Disk displacement Comparison: None FINDINGS: Eight spot fluoroscopic images were saved demonstrating needle placement at multiple levels of the right lumbar spine. A total of 72 seconds fluoroscopy time was utilized. Please see the ordering clinician's report for full details. IMPRESSION: Documentation of fluoroscopy. This report was electronically signed by Suma Og MD 02/24/2021 10:12 AM Reported By: SUMA OG M.D. Signed By: SUMA OG M.D. Normal [facility] Glucose Glucometer (BldC) [M ass/Vol]on 02-02-2021 Glucose [Mass/Vol] 153 mg/dL 70-110 [facility] Work Phone: Comment on above: MANAGEMENT OF PATIEN T CARE PER NURSING PROTOCOL Absolute lymphocyte counton 02-01-2021 Lymphocytes Auto (Unsp spec) [#/Vol] 2.68 10*3/uL 0.83-4.51 [facility] Work Phone: Basophil percentageon 2020 Bilirubin [Mass/Vol] 0.40 mg/dL 0.20-1.00 [facility] Work Phone: Comment on above: For patients on eltr ombopag therapy, use of Dimension [place] TBIL is not recommended. Chloride [Moles/Vol] 112 mmol/L 98-107 [facility] Work Phone: Eosinophils/100 WBC (Bld) 1.3 % 0-5 [facility] Work Phone: Glucose [Mass/Vol] 109 mg/dL 74-106 [facility] Work Phone: Comment on above: Fasting Glucose resu lt from 100 to 125 mg/dL suggests IMPAIRED HOMEOSTASIS per A.D.A. criteria.Please note revised GLUCOSE reference range effective 2017. Neutrophils (Bld) [#/Vol] 9.6 10*3/uL 2.0-7.7 [facility] Work Phone: Potassium [Moles/Vol] 5.3 mmol/L 3.5-5.1 [facility] Work Phone: Protein [Mass/Vol] 6.3 g/dL 6.4-8.2 [facility] Work Phone: Sodium [Moles/Vol] 137 mmol/L 136-145 [facility] Work Phone: WBC (Bld) [#/Vol] 13.2 10*3/uL 4.4-11.0 [facility] Work Phone: Blood erythrocytes count (nu mber/volume)on 02-01-2021 RBC (Bld) [#/Vol] 3.21 10*6/uL 4.2-5.4 [facility] Work Phone: Blood hemoglobin measurement (mass/volume)on 02-01-2021 Hemoglobin (Bld) [Mass/Vol] 10.9 g/dL 12.0-15.0 [facility] Work Phone: Blood lymphocytes/100 leukoc yteson 02-01-2021 Lymphocytes/100 WBC (Bld) 20.3 % 19-41 [facility] Work Phone: Blood monocytes/100 leukocyt eson 02-01-2021 Monocytes/100 WBC (Bld) 5.2 % 0-10 [facility] Work Phone: Blood platelet mean volumeon 02-01-2021 Platelet mean volume (Bld) [Entitic vol] 10.0 fL 6.2-12.0 [facility] Work Phone: Determination of erythrocyte mean corpuscular volume (MCV)on 02-01-2021 MCV (RBC) [Entitic vol] 105.9 fL 81-99 [facility] Work Phone: Hematocrit Auto (Bld) [Volum e fraction]on 02-01-2021 Hematocrit (Bld) [Volume fraction] 34.0 % 37-47 [facility] Work Phone: Laboratory - Chemistry and C hemistry - challengeon 02-01-2021 ALP [Catalytic activity/Vol] 29 U/L 45-117 [facility] Work Phone: ALT [Catalytic activity/Vol] 48 U/L 13-56 [facility] Work Phone: CO2 [Moles/Vol] 20.0 mmol/L 21.0-32.0 [facility] Work Phone: Globulin (S) [Mass/Vol] 4.3 g/dL 2.2-4.2 [facility] Work Phone: Urea nitrogen/Creatinine [Mass ratio] 25.2 mg/mg 10-20 [facility] Work Phone: Laboratory - Hematology and Cell countson 02-01-2021 Basophils/100 WBC (Unsp spec) 0.3 % 0-1 [facility] Work Phone: Erythrocyte distribution width (RBC) [Entitic vol] 58.2 fL 35.1-43.9 [facility] Work Phone: Erythrocyte distribution width (RBC) [Ratio] 14.8 % 11.6-14.6 [facility] Work Phone: Immature granulocytes/100 WBC (Bld) 0.500 % 0.0-0.9 [facility] Work Phone: Comment on above: IG% - Immature Granu locytes (promyelocytes, myelocytes and metamyelocytes) > 1% indicates that a LEFT SHIFT is Present. MCH (RBC) [Entitic mass] 34.0 pg 27.0-32.0 [facility] Work Phone: Neutrophils/100 WBC (Bld) 72.4 % 47-70 [facility] Work Phone: Nucleated RBC/100 WBC (Bld) [Ratio] 0 % 0-5 [facility] Work Phone: MCHC Auto (RBC) [Mass/Vol]on 02-01-2021 MCHC (RBC) [Mass/Vol] 32.1 g/dL 32-36 [facility] Work Phone: No Panel Informationon 02-01 Estimated Creatinine Clearance Calc 32.99 ml/min [facility] Work Phone: Estimated GFR (MDRD) Amer 55 mL/min >60 [facility] Work Phone: Comment on above: GFR Calc Estimated GFR (MDRD) Non-Af Amer 45 mL/min >60 [facility] Work Phone: Comment on above: Non- GFR Calc Platelets bldon 02-01-2021 Platelets (Bld) [#/Vol] 125 10*3/uL 150-450 [facility] Work Phone: Serum or plasma albumin jesus urement (mass/volume)on 02-01-2021 Albumin [Mass/Vol] 2.0 g/dL 3.2-5.0 [facility] Work Phone: Serum or plasma albumin/glob ulin mass ratioon 02-01-2021 Albumin/Globulin [Mass ratio] 0.5 {ratio} 0.9-2.4 [facility] Work Phone: Serum or plasma calcium jesus urement (mass/volume)on 02-01-2021 Calcium [Mass/Vol] 8.7 mg/dL 8.5-10.1 [facility] Work Phone: Serum or plasma creatinine m easurement (mass/volume)on 02-01-2021 Creatinine [Mass/Vol] 1.27 mg/dL 0.55-1.02 [facility] Work Phone: Comment on above: The validity of the calculated GFR & GFRAA in patients over 70 years has not been determined. Clinical correlation is essential. Serum or plasma urea nitroge n measurement (mass/volume)on 02-01-2021 Urea nitrogen [Mass/Vol] 32 mg/dL 7-18 [facility] Work Phone: Thin prep Papanicolaou smear with manual screeningon 02-01-2021 Thin prep Papanicolaou smear with manual screening 55 U/L 15-37 [facility] Work Phone: Thin prep Papanicolaou smear with manual screening 5 5-15 [facility] Work Phone: Basophil percentageon 2020 Basophil percentage 5-10 SEEN /hpf [facility] Work Phone: Bilirubin Test strip Ql (U)o n 01-31-2021 Bilirubin Ql (U) 1 mg/dL Negative [facility] Work Phone: Comment on above: COLOR OF URINE MAY A FFECT DIPSTICK RESULTS. Hyaline casts LM.LPF (Urine sed) [#/Area]on 01-31-2021 Hyaline casts (Urine sed) [#/Area] 0 /[LPF] [facility] Work Phone: Ketones Test strip Ql (U)on 01-31-2021 Ketones Ql (U) 5 mg/dl Negative [facility] Work Phone: Mucus LM Ql (Urine sed)on Mucus Ql (Urine sed) 0 SEEN /hpf [facility] Work Phone: Nitrite Test strip Ql (U)on 01-31-2021 Nitrite Ql (U) Negative Negative [facility] Work Phone: No Panel Informationon 01-31 Respiratory Panel (PCR) [facility] Work Phone: Streptococcus pneumoniae Antigen (M [facility] Work Phone: Protein Test strip Ql (U)on 01-31-2021 Protein Ql (U) 30 mg/dl Negative [facility] Work Phone: Squamous epithelial cells de tection in urine sediment by light microscopyon 01-31-2021 Epithelial cells.squamous LM Ql (Urine sed) 0-5 SEEN /hpf [facility] Work Phone: Urine blood detectionon 01-06 RBC Ql (U) Negative Negative [facility] Work Phone: RBC Ql (U) 0 SEEN /hpf [facility] Work Phone: Urine clarityon 01-31-2021 Clarity (U) Clear Clear [facility] Work Phone: Urine color determinationon 01-31-2021 Color (U) Rosita Yellow [facility] Work Phone: Urine glucose detectionon Glucose Ql (U) Normal mg/dl Normal [facility] Work Phone: Urine leukocyte esterase det ection by dipstickon 01-31-2021 Leukocyte esterase Test strip Ql (U) 500 /ul Negative [facility] Work Phone: Urine pHon 01-31-2021 pH (U) 5.0 [pH] [facility] Work Phone: Urine sediment bacteria coun t by microscopy (number/high power field)on 01-31-2021 Bacteria LM.HPF (Urine sed) [#/Area] 0 /[HPF] None Seen [facility] Work Phone: Urine specific gravity measu rementon 01-31-2021 Specific gravity (U) [Rel density] 1.025 [facility] Work Phone: Urobilinogen Auto test strip Ql (U)on 01-31-2021 Urobilinogen Ql (U) Normal mg/dl Normal [facility] Work Phone: FLUOROSCOPY IN OR/PAIN MGTon 01-20-2021 FLUOROSCOPY IN OR/PAIN MGT FLUOROSCOPY FOR NEEDLE GUIDANCE: Clinical Statement: Back pain FINDINGS: 49.2 seconds of fluoroscopy time was utilized by Dr. Lam. 2 fluoroscopic spot images were acquired of the lumbar spine. Additional information can be found in Dr. Lam' report. IMPRESSION: Fluoroscopy provided to Dr. Lam. This report was electronically signed by Adrianna Barnes MD 01/20/2021 1:53 PM Reported By: ADRIANNA BARNES M.D. Signed By: ADRIANNA BARNES M.D. [facility] FLUOROSCOPY IN OR/PAIN MGTon 11-04-2020 FLUOROSCOPY IN OR/PAIN MGT FLUOROSCOPY IN OR/PAIN MGT Ordering Physician: Lina Lam DO 11/04/2020 7:33 AM FLUOROSCOPY AND RADIOGRAPHS [...] This report was electronically signed by Dano Du MD 11/05/2020 11:16 AM Reported By: DANO DU M.D. Signed By: DANO DU M.D. [facility] FLUOROSCOPY IN OR/PAIN MGTon 10-13-2020 FLUOROSCOPY IN OR/PAIN MGT FLUOROSCOPY IN OR/PAIN MGT Ordering Physician: Lina Lam DO 10/13/2020 7:43 AM FLUOROSCOPY IN OR/PAIN MANAGEMENT Clinical Statement: Lumbar region radiculopathy Comparison: None FINDINGS: Fluoroscopy was provided to Dr. Lam who performed the procedure. 2 fluoroscopic images of the lumbar spine show a needle directed posteriorly at the L5-S1 level. 9.9 seconds of fluoroscopic time was utilized during the procedure. IMPRESSION: Report generated to document fluoroscopic time utilized in pain management. This report was electronically signed by Vinnie Tam MD 10/13/2020 10:47 AM Reported By: VINNIE TAM M.D. Signed By: VINNIE TAM M.D. [facility] Urine Cultureon 10-07-2020 Bacteria identified Cx Nom (U) Specimen Desc: URINE Sp. Request/Comment: PRESRV Culture Result <10,000 CFU/ml Three or more organisms, no one type predominant, suggesting contamination during collection. Recollect if clinically indicated. Report Status 10/07/2020 FINAL Normal [facility] VL VENOUS UNILATERAL LOWER E [...] PM Sign Date: 07/22/2018 5:07:25 PM Normal [facility] [place] .GFRon 07-10-2018 GFR 86 ml/min/1.73sqm Normal [facility] [place] Comment on above: Result Comment: GFR Population [...] Performed By: #### C RE, GFR #### [address] [address] GFR Non- 71 ml/min/1.73sqm Normal [facility] [place] Comment on above: Result Comment: GFR Population [...] Performed By: #### C RE, GFR #### [address] [address] CREon 07-10-2018 Creatinine [Mass/Vol] 0.82 mg/dL Normal 0.55-1.02 [facility] ([place] Comment on above: Performed By: #### C RE, GFR #### [address] [address] Vital Signs Date Time Vital Sign Value Performing Clinician Britt cloud 05-12-2024 08:40-0400 Body mass index (BMI) [Ratio] 32.33 kg/m2 Dakotah Romo GOAT FARMER.MEDICAL RECORD ASSISTANT Work Phone: [facility] 05-12-2024 08:40-0400 Body temperature 97 [degF] Dakotah Mosquedakim GOAT FARMER.MEDICAL RECORD ASSISTANT Work Phone: [facility] 05-12-2024 08:40-0400 Body weight 75.1 kg Dakotah Romo GOAT FARMER.MEDICAL RECORD ASSISTANT Work Phone: [facility] 05-12-2024 08:40-0400 Diastolic blood pressure 82 mm[Hg] [facility] GOAT FARMER.MEDICAL RECORD ASSISTANT Work Phone: [facility] 05-12-2024 08:40-0400 Heart rate 88 /min Dakotah Romo GOAT FARMER.MEDICAL RECORD ASSISTANT Work Phone: [facility] 05-12-2024 08:40-0400 Respiratory rate 16 /min [facility] GOAT FARMER.MEDICAL RECORD ASSISTANT Work Phone: [facility] 05-12-2024 08:40-0400 SaO2% (BldA) [Mass fraction] 97 % Dakotah Mosquedakim GOAT FARMER.MEDICAL RECORD ASSISTANT Work Phone: [facility] 05-12-2024 08:40-0400 Systolic blood pressure 144 mm[Hg] [facility] GOAT FARMER.MEDICAL RECORD ASSISTANT Work Phone: [facility] 04-10-2024 09:39-0500 Body height 152.4 cm Angeles Pantoja NP-C Work Phone: [facility] 04-10-2024 09:39-0500 Body temperature 97.7 [degF] Angeles Pantoja BLOOD BANK LABORATORY TECHNICIAN-C Work Phone: [facility] 04-10-2024 09:39-0500 Diastolic blood pressure 82 mm[Hg] Angeles Pantoja BLOOD BANK LABORATORY TECHNICIAN-C Work Phone: [facility] 04-10-2024 09:39-0500 Heart rate 85 /min Angeles Pantoja BLOOD BANK LABORATORY TECHNICIAN-C Work Phone: 4(841)064-2020[address] [place] [address] 04-10-2024 09:39-0500 Respiratory rate 18 /min Angeles Pantoja BLOOD BANK LABORATORY TECHNICIAN-C Work Phone: 7(654)142-970605 [place] [address] 04-10-2024 09:39-0500 SaO2% (BldA) [Mass fraction] 93 % Angeles Pantoja BLOOD BANK LABORATORY TECHNICIAN-C Work Phone: 8(695)100-284405 [place] [address] 04-10-2024 09:39-0500 Systolic blood pressure 135 mm[Hg] Angeles Pantoja BLOOD BANK LABORATORY TECHNICIAN-C Work Phone: 3(186)513-956505 [place] [address] 01-25-2024 13:01-0500 Body mass index (BMI) [Ratio] 32.5 kg/m2 Angeles Pantoja BLOOD BANK LABORATORY TECHNICIAN-C Work Phone: 5(980)451-981705 [place] [address] 01-25-2024 13:01-0500 Body weight 75.74 kg Angeles Pantoja BLOOD BANK LABORATORY TECHNICIAN-C Work Phone: 3(533)585-760105 [place] [address] 01-25-2024 13:01-0500 Diastolic blood pressure 73 mm[Hg] Angeles Pantoja BLOOD BANK LABORATORY TECHNICIAN-C Work Phone: 2(405)244-831405 [place] [address] 01-25-2024 13:01-0500 Heart rate 86 /min Angeles Pantoja BLOOD BANK LABORATORY TECHNICIAN-C Work Phone: 1(441)502-930305 [place] [address] 01-25-2024 13:01-0500 SaO2% (BldA) [Mass fraction] 95 % Angeles Pantoja BLOOD BANK LABORATORY TECHNICIAN-C Work Phone: 0(044)452-375905 [place] [address] 01-25-2024 13:01-0500 Systolic blood pressure 127 mm[Hg] Angeles Pantoja BLOOD BANK LABORATORY TECHNICIAN-C Work Phone: 4(389)219-084705 [place] [address] 01-10-2024 13:26-0500 Body mass index (BMI) [Ratio] 31.4 kg/m2 Angeles Pantoja BLOOD BANK LABORATORY TECHNICIAN-C Work Phone: 9(809)799-139305 [place] [address] 01-10-2024 13:26-0500 Body temperature 97.8 [degF] Angeles Pantoja BLOOD BANK LABORATORY TECHNICIAN-C Work Phone: 8(179)123-081605 [place] [address] 01-10-2024 13:26-0500 Body weight 73.02 kg Angeles Pantoja BLOOD BANK LABORATORY TECHNICIAN-C Work Phone: 5(216)940-936171 [place] [address] 01-10-2024 13:26-0500 Diastolic blood pressure 76 mm[Hg] Angeles Pantoja BLOOD BANK LABORATORY TECHNICIAN-C Work Phone: 5(856)695-016905 [place] [address] 01-10-2024 13:26-0500 Heart rate 78 /min Angeles Pantoja BLOOD BANK LABORATORY TECHNICIAN-C Work Phone: 7(879)851-421305 [place] [address] 01-10-2024 13:26-0500 Respiratory rate 16 /min Angeles Pantoja BLOOD BANK LABORATORY TECHNICIAN-C Work Phone: 7(237)187-036905 [place] [address] 01-10-2024 13:26-0500 SaO2% (BldA) [Mass fraction] 96 % Angeles Pantoja BLOOD BANK LABORATORY TECHNICIAN-C Work Phone: 7(783)118-652705 [place] [address] 01-10-2024 13:26-0500 Systolic blood pressure 127 mm[Hg] Angeles Pantoja BLOOD BANK LABORATORY TECHNICIAN-C Work Phone: 9(850)532-062905 [place] [address] 05-20-2023 16:38-0400 Body temperature 97.9 [degF] [facility] Work Phone: 8(064)805-381905 [place] [address] 05-20-2023 16:38-0400 Diastolic blood pressure 56 mm[Hg] [facility] Work Phone: 7(124)657-865305 [place] [address] 05-20-2023 16:38-0400 Heart rate 66 /min [facility] Work Phone: 8(656)618-574605 [place] [address] 05-20-2023 16:38-0400 Respiratory rate 17 /min [facility] Work Phone: 2(057)989-068205 [place] [address] 05-20-2023 16:38-0400 SaO2% (BldA) [Mass fraction] 93 % [facility] Work Phone: 9(892)089-140805 [place] [address] 05-20-2023 16:38-0400 Systolic blood pressure 145 mm[Hg] [facility] Work Phone: 7(993)977-058505 [place] [address] 05-20-2023 13:34-0400 Body mass index (BMI) [Ratio] 32.8 kg/m2 [facility] Work Phone: 4(322)541-458405 [place] [address] 05-20-2023 13:34-0400 Body weight 75.7 kg [facility] Work Phone: [facility] 05-20-2023 12:40-0400 Body height 152.4 cm [facility] Work Phone: [facility] 05-20-2023 12:05-0400 Body temperature 96.1 [degF] Krislyn Aberegg PA Work Phone: [facility] 05-20-2023 12:05-0400 Body weight 75.7 kg Krislyn Aberegg PA Work Phone: [facility] 05-20-2023 12:05-0400 Diastolic blood pressure 50 mm[Hg] Krislyn Aberegg PA Work Phone: [facility] 05-20-2023 12:05-0400 Heart rate 70 /min Krislyn Aberegg PA Work Phone: [facility] 05-20-2023 12:05-0400 Respiratory rate 20 /min Krislyn Aberegg PA Work Phone: [facility] 05-20-2023 12:05-0400 SaO2% (BldA) [Mass fraction] 95 % Krislyn Aberegg PA Work Phone: [facility] 05-20-2023 12:05-0400 Systolic blood pressure 148 mm[Hg] Krislyn Aberegg PA Work Phone: [facility] 05-07-2023 13:25-0400 Body mass index (BMI) [Ratio] 31.4 kg/m2 [facility] Work Phone: [facility] 05-07-2023 13:25-0400 Body temperature 98.6 [degF] [facility] Work Phone: [facility] 05-07-2023 13:25-0400 Body weight 73.02 kg [facility] Work Phone: [facility] 05-07-2023 13:25-0400 Diastolic blood pressure 84 mm[Hg] [facility] Work Phone: 0(656)600-296405 [place] [address] 05-07-2023 13:25-0400 Heart rate 71 /min [facility] Work Phone: 0(347)489-514105 [place] [address] 05-07-2023 13:25-0400 SaO2% (BldA) [Mass fraction] 97 % [facility] Work Phone: 3(186)637-127805 [place] [address] 05-07-2023 13:25-0400 Systolic blood pressure 142 mm[Hg] [facility] Work Phone: 9(171)082-164105 [place] [address] 02-16-2023 14:07-0500 Body height 152.[address] [facility] Work Phone: 0(712)072-067505 [place] [address] 02-16-2023 14:07-0500 Body mass index (BMI) [Ratio] 32 kg/m2 [facility] Work Phone: 9(627)037-862705 [place] [address] 02-16-2023 14:07-0500 Body temperature 96 [degF] [facility] Work Phone: 0(149)543-411105 [place] [address] 02-16-2023 14:07-0500 Body weight 74.38 kg [facility] Work Phone: 1(841)916-282205 [place] [address] 02-16-2023 14:07-0500 Diastolic blood pressure 68 mm[Hg] [facility] Work Phone: 1(217)632-911405 [place] [address] 02-16-2023 14:07-0500 Heart rate 82 /min [facility] Work Phone: 4(978)373-422605 [place] [address] 02-16-2023 14:07-0500 Respiratory rate 16 /min [facility] Work Phone: 7(805)135-802605 [place] [address] 02-16-2023 14:07-0500 SaO2% (BldA) [Mass fraction] 98 % [facility] Work Phone: 7(908)131-636005 [place] [address] 02-16-2023 14:07-0500 Systolic blood pressure 173 mm[Hg] [facility] Work Phone: 4(011)351-609705 [place] [address] 02-02-2023 09:54-0500 Body height 152.[address] [facility] Work Phone: 3(542)668-235105 [place] [address] 02-02-2023 09:54-0500 Body mass index (BMI) [Ratio] 32 kg/m2 [facility] Work Phone: 2(085)050-648505 [place] [address] 02-02-2023 09:54-0500 Body temperature 96.6 [degF] [facility] Work Phone: 7(223)314-412705 [place] [address] 02-02-2023 09:54-0500 Body weight 74.38 kg [facility] Work Phone: 1(588)046-819705 [place] [address] 02-02-2023 09:54-0500 Diastolic blood pressure 67 mm[Hg] [facility] Work Phone: 2(028)155-850505 [place] [address] 02-02-2023 09:54-0500 Heart rate 83 /min [facility] Work Phone: 5(446)488-137905 [place] [address] 02-02-2023 09:54-0500 Respiratory rate 16 /min [facility] Work Phone: 8(864)492-122205 [place] [address] 02-02-2023 09:54-0500 Systolic blood pressure 139 mm[Hg] [facility] Work Phone: 3(615)439-379705 [place] [address] 02-02-2023 08:55-0500 Body mass index (BMI) [Ratio] 32.1 kg/m2 [facility] Work Phone: 6(451)141-654505 [place] [address] 02-02-2023 08:55-0500 Body temperature 97.9 [degF] [facility] Work Phone: 3(284)347-868605 [place] [address] 02-02-2023 08:55-0500 Body weight 74.55 kg [facility] Work Phone: 3(299)518-286005 [place] [address] 02-02-2023 08:55-0500 Diastolic blood pressure 74 mm[Hg] [facility] Work Phone: 9(012)734-826605 [place] [address] 02-02-2023 08:55-0500 Heart rate 90 /min [facility] Work Phone: 5(044)205-475205 [place] [address] 02-02-2023 08:55-0500 Respiratory rate 16 /min [facility] Work Phone: 2(647)692-483405 [place] [address] 02-02-2023 08:55-0500 SaO2% (BldA) [Mass fraction] 90 % [facility] Work Phone: 7(529)861-817605 [place] [address] 02-02-2023 08:55-0500 Systolic blood pressure 129 mm[Hg] [facility] Work Phone: 6(842)730-690305 [place] [address] 12-04-2022 13:07-0400 Body mass index (BMI) [Ratio] 32.1 kg/m2 [facility] Work Phone: 1(631)116-895005 [place] [address] 12-04-2022 13:07-0400 Body temperature 98 [degF] [facility] Work Phone: 9(307)751-556105 [place] [address] 12-04-2022 13:07-0400 Body weight 74.5 kg [facility] Work Phone: 5(416)197-996505 [place] [address] 12-04-2022 13:07-0400 Diastolic blood pressure 76 mm[Hg] [facility] Work Phone: 2(146)439-772905 [place] [address] 12-04-2022 13:07-0400 Heart rate 96 /min [facility] Work Phone: 6(614)152-451305 [place] [address] 12-04-2022 13:07-0400 Respiratory rate 18 /min [facility] Work Phone: 7(573)909-078805 [place] [address] 12-04-2022 13:07-0400 SaO2% (BldA) [Mass fraction] 96 % [facility] Work Phone: 3(467)008-031605 [place] [address] 12-04-2022 13:07-0400 Systolic blood pressure 116 mm[Hg] [facility] Work Phone: 8(039)446-402505 [place] [address] 11-07-2022 14:40-0400 Body height 152.4 cm Lina Lam DO Work Phone: [facility] 11-07-2022 14:40-0400 Body weight 73.94 kg Lina Lam DO Work Phone: [facility] 11-07-2022 14:40-0400 Diastolic blood pressure 62 mm[Hg] Lina Lam DO Work Phone: [facility] 11-07-2022 14:40-0400 Heart rate 85 /min Lina Lam DO Work Phone: [facility] 11-07-2022 14:40-0400 Respiratory rate 18 /min Lina Lam DO Work Phone: [facility] 11-07-2022 14:40-0400 SaO2% (BldA) [Mass fraction] 98 % Lina Lam DO Work Phone: [facility] 11-07-2022 14:40-0400 Systolic blood pressure 113 mm[Hg] Lina Lam DO Work Phone: [facility] 08-15-2022 14:51-0400 Body height 152.4 cm Rhonda [place] GOAT FARMER.MANGANESE BREAKER Work Phone: [facility] 08-15-2022 14:51-0400 Body weight 72.12 kg Rhonda [place] GOAT FARMER.MANGANESE BREAKER Work Phone: [facility] 08-15-2022 14:51-0400 Diastolic blood pressure 71 mm[Hg] Rhonda [place] GOAT FARMER.MANGANESE BREAKER Work Phone: [facility] 08-15-2022 14:51-0400 Heart rate 78 /min Rhonda Fredis GOAT FARMER.MANGANESE BREAKER Work Phone: [facility] 08-15-2022 14:51-0400 Respiratory rate 19 /min Rhonda Fredis GOAT FARMER.MANGANESE BREAKER Work Phone: [facility] 08-15-2022 14:51-0400 SaO2% (BldA) [Mass fraction] 97 % Rhonda [place] GOAT FARMER.MANGANESE BREAKER Work Phone: [facility] 08-15-2022 14:51-0400 Systolic blood pressure 148 mm[Hg] Rhonda [place] GOAT FARMER.MANGANESE BREAKER Work Phone: [facility] 08-04-2022 13:29-0400 Body height 152.4 cm [facility] Work Phone: [facility] 08-04-2022 13:29-0400 Body mass index (BMI) [Ratio] 31 kg/m2 [facility] Work Phone: 0(340)335-124805 [place] [address] 08-04-2022 13:29-0400 Body temperature 97.1 [degF] [facility] Work Phone: 5(465)392-530405 [place] [address] 08-04-2022 13:29-0400 Body weight 72.12 kg [facility] Work Phone: 9(661)392-336405 [place] [address] 08-04-2022 13:29-0400 Diastolic blood pressure 56 mm[Hg] [facility] Work Phone: 5(989)872-928405 [place] [address] 08-04-2022 13:29-0400 Heart rate 84 /min [facility] Work Phone: 9(560)731-972305 [place] [address] 08-04-2022 13:29-0400 Respiratory rate 16 /min [facility] Work Phone: 3(831)473-088805 [place] [address] 08-04-2022 13:29-0400 SaO2% (BldA) [Mass fraction] 100 % [facility] Work Phone: 2(555)961-031205 [place] [address] 08-04-2022 13:29-0400 Systolic blood pressure 113 mm[Hg] [facility] Work Phone: 3(784)587-427405 [place] [address] 07-04-2022 14:02-0400 Body height 152.4 cm [facility] Work Phone: 9(429)700-055205 [place] [address] 07-04-2022 14:02-0400 Body mass index (BMI) [Ratio] 31.6 kg/m2 [facility] Work Phone: 3(583)935-843705 [place] [address] 07-04-2022 14:02-0400 Body temperature 98.2 [degF] [facility] Work Phone: 6(212)251-421705 [place] [address] 07-04-2022 14:02-0400 Body weight 73.59 kg [facility] Work Phone: 5(976)302-776305 [place] [address] 07-04-2022 14:02-0400 Diastolic blood pressure 77 mm[Hg] [facility] Work Phone: 4(914)231-185005 [place] [address] 07-04-2022 14:02-0400 Heart rate 96 /min [facility] Work Phone: [facility] 07-04-2022 14:02-0400 Respiratory rate 16 /min [facility] Work Phone: [facility] 07-04-2022 14:02-0400 SaO2% (BldA) [Mass fraction] 95 % [facility] Work Phone: [facility] 07-04-2022 14:02-0400 Systolic blood pressure 143 mm[Hg] [facility] Work Phone: [facility] 05-17-2022 14:23-0400 Body height 155.4 cm [facility] [place] GOAT FARMER.MANGANESE BREAKER Work Phone: [facility] 05-17-2022 14:23-0400 Body weight 75.75 kg [facility] [place] GOAT FARMER.MANGANESE BREAKER Work Phone: [facility] 05-17-2022 14:23-0400 Diastolic blood pressure 68 mm[Hg] Rhonda Fredis GOAT FARMER.MANGANESE BREAKER Work Phone: [facility] 05-17-2022 14:23-0400 Heart rate 101 /min Rhonda Fredis GOAT FARMER.MANGANESE BREAKER Work Phone: [facility] 05-17-2022 14:23-0400 Respiratory rate 19 /min [facility] GOAT FARMER.MANGANESE BREAKER Work Phone: [facility] 05-17-2022 14:23-0400 SaO2% (BldA) [Mass fraction] 95 % [facility] [place] GOAT FARMER.MANGANESE BREAKER Work Phone: [facility] 05-17-2022 14:23-0400 Systolic blood pressure 138 mm[Hg] Rhonda [place] GOAT FARMER.MANGANESE BREAKER Work Phone: [facility] 03-21-2022 14:31-0500 Body temperature 98.1 [degF] [facility] Work Phone: [facility] 03-21-2022 14:31-0500 Body weight 75.97 kg [facility] Work Phone: [facility] 03-21-2022 14:31-0500 Diastolic blood pressure 76 mm[Hg] [facility] Work Phone: [facility] 03-21-2022 14:31-0500 Heart rate 99 /min [facility] Work Phone: 1(664)213-228471 [place] [address] 03-21-2022 14:31-0500 Respiratory rate 16 /min [facility] Work Phone: 8(898)559-860871 [place] [address] 03-21-2022 14:31-0500 SaO2% (BldA) [Mass fraction] 96 % [facility] Work Phone: 7(517)559-984471 [place] [address] 03-21-2022 14:31-0500 Systolic blood pressure 133 mm[Hg] [facility] Work Phone: 0(656)954-029971 [place] [address] 02-15-2022 14:19-0500 Diastolic blood pressure 80 mm[Hg] Rhonda [place] GOAT FARMER.MANGANESE BREAKER Work Phone: [facility] 02-15-2022 14:19-0500 Heart rate 105 /min [facility] [place] GOAT FARMER.MANGANESE BREAKER Work Phone: [facility] 02-15-2022 14:19-0500 SaO2% (BldA) [Mass fraction] 98 % [facility] GOAT FARMER.MANGANESE BREAKER Work Phone: [facility] 02-15-2022 14:19-0500 Systolic blood pressure 131 mm[Hg] Rhonda Fredis GOAT FARMER.MANGANESE BREAKER Work Phone: [facility] 02-03-2022 13:09-0500 Diastolic blood pressure 57 mm[Hg] [facility] Work Phone: [facility] 02-03-2022 13:09-0500 Heart rate 114 /min [facility] Work Phone: [facility] 02-03-2022 13:09-0500 SaO2% (BldA) [Mass fraction] 95 % [facility] Work Phone: [facility] 02-03-2022 13:09-0500 Systolic blood pressure 109 mm[Hg] [facility] Work Phone: [facility] 01-02-2022 10:22-0500 Body height 152.4 cm [facility] Work Phone: [facility] Work Phone: 01-02-2022 10:22-0500 Body mass index (BMI) [Ratio] 31.8 kg/m2 [facility] Work Phone: [facility] Work Phone: 01-02-2022 10:22-0500 Body weight 73.93 kg [facility] Work Phone: [facility] Work Phone: 01-02-2022 10:22-0500 Diastolic blood pressure 72 mm[Hg] [facility] Work Phone: [facility] Work Phone: 01-02-2022 10:22-0500 Heart rate 92 /min [facility] Work Phone: [facility] Work Phone: 01-02-2022 10:22-0500 Systolic blood pressure 138 mm[Hg] [facility] Work Phone: [facility] Work Phone: 08-15-2021 15:13-0400 Body height 152.4 cm [facility] GOAT FARMER.MANGANESE BREAKER Work Phone: [facility] 08-15-2021 15:13-0400 Body weight 79.83 kg Rhonda [place] GOAT FARMER.MANGANESE BREAKER Work Phone: [facility] 08-15-2021 15:13-0400 Diastolic blood pressure 79 mm[Hg] Rhonda [place] GOAT FARMER.MANGANESE BREAKER Work Phone: [facility] 08-15-2021 15:13-0400 Heart rate 79 /min Rhonda [place] GOAT FARMER.MANGANESE BREAKER Work Phone: [facility] 08-15-2021 15:13-0400 Respiratory rate 19 /min [place] GO[place] FARMER.MANGANESE BREAKER Work Phone: [facility] 08-15-2021 15:13-0400 SaO2% (BldA) [Mass fraction] 98 % Rhondanasrin JohnsFredis GOAT FARMER.MANGANESE BREAKER Work Phone: [facility] 08-15-2021 15:13-0400 Systolic blood pressure 168 mm[Hg] [place] GOAT FARMER.MANGANESE BREAKER Work Phone: [facility] 07-26-2021 10:30-0400 Body height 152.4 cm [facility] Work Phone: [facility] Work Phone: 07-26-2021 10:30-0400 Body mass index (BMI) [Ratio] 34.4 kg/m2 [facility] Work Phone: [facility] Work Phone: 07-26-2021 10:30-0400 Body temperature 94.4 [degF] [facility] Work Phone: [facility] Work Phone: 07-26-2021 10:30-0400 Body weight 80 kg [facility] Work Phone: [facility] Work Phone: 07-26-2021 10:30-0400 Diastolic blood pressure 84 mm[Hg] [facility] Work Phone: [facility] Work Phone: 07-26-2021 10:30-0400 Heart rate 94 /min [facility] Work Phone: [facility] Work Phone: 07-26-2021 10:30-0400 Respiratory rate 18 /min [facility] Work Phone: [facility] Work Phone: 07-26-2021 10:30-0400 SaO2% (BldA) [Mass fraction] 96 % [facility] Work Phone: [facility] Work Phone: 07-26-2021 10:30-0400 Systolic blood pressure 140 mm[Hg] [facility] Work Phone: [facility] Work Phone: 02-02-2021 11:00-0500 Body temperature 99.1 [degF] [facility] Work Phone: [facility] Work Phone: 02-02-2021 11:00-0500 Diastolic blood pressure 73 mm[Hg] [facility] Work Phone: [facility] Work Phone: 02-02-2021 11:00-0500 Heart rate 69 /min [facility] Work Phone: [facility] Work Phone: 02-02-2021 11:00-0500 Respiratory rate 18 /min [facility] Work Phone: [facility] Work Phone: 02-02-2021 11:00-0500 Systolic blood pressure 165 mm[Hg] [facility] Work Phone: [facility] Work Phone: 02-02-2021 07:00-0500 SaO2% (BldA) [Mass fraction] 95 % [facility] Work Phone: [facility] Work Phone: 02-02-2021 05:00-0500 Body weight 84.6 kg [facility] Work Phone: [facility] Work Phone: 02-01-2021 13:46-0500 Body height 152.4 cm [facility] Work Phone: [facility] Work Phone: 01-31-2021 20:26-0500 Body mass index (BMI) [Ratio] 36.1 kg/m2 [facility] Work Phone: [facility] Work Phone: Encounters Encounter Date Encounter Type Care Provider Facility Start: 08-04-2024 ambulatory Angeles Alvares in [facility] Facility:[facility] Start: 07-29-2024 End: 07-29-2024 ambulatory Angeles Pantoja BLOOD BANK LABORATORY TECHNICIAN-C Work Phone: -[facility]atory [facility] Start: 07-29-2024 End: 07-29-2024 Patient encounter procedure [facility] Angeles Kit BLOOD BANK LABORATORY TECHNICIAN-C -Laboratory [facility] Start: 07-29-2024 End: 07-29-2024 ambulatory Angeles Pantoja [facility] Facility:[facility] Start: 05-22-2024 End: 05-22-2024 ambulatory Angeles Pantoja BLOOD BANK LABORATORY TECHNICIAN-C Work Phone: [facility] Work Phone: Start: 05-22-2024 End: 05-22-2024 Patient encounter procedure Emmett Mathias BLOOD BANK LABORATORY TECHNICIAN-C -Radiology, [facility] Work Phone: Start: 05-22-2024 End: 05-22-2024 ambulatory Angeles Pantoja [facility] Facility:[facility] Start: 05-14-2024 End: 05-14-2024 ambulatory Angeles Pantoja BLOOD BANK LABORATORY TECHNICIAN-C Work Phone: [facility] Work Phone: Start: 05-14-2024 End: 05-14-2024 Patient encounter procedure [facility] Angeles Kit ELIZONDO-C -Laboratory, [facility] Start: 05-14-2024 End: 05-14-2024 ambulatory Angeles Pantoja [facility] Facility:[facility] Start: 05-12-2024 End: 05-12-2024 ambulatory ANGELES PANTOJA Facility:[facility] Start: 05-12-2024 End: 05-12-2024 Office outpatient visit 15 minutes Dakotah Romo APRN.CNP Work Phone: [facility] Comment on above: Abdominal pain, unsp ecified abdominal location (Primary Dx) Start: 04-10-2024 End: 04-10-[address] Josh Mijares MD -[facility] Work Phone: Start: 04-10-2024 End: 04-10-2024 ambulatory Josh Mijares Facility:[facility] Start: 04-01-2024 End: 04-01-[address] Chino Peace MD -[facility] Work Phone: Start: 04-01-2024 End: 04-01-2024 ambulatory Angeles Kit BLOOD BANK LABORATORY TECHNICIAN-C Work Phone: [facility] Work Phone: Start: 04-01-2024 End: 04-01-2024 ambulatory Constance Amy Facility:[facility] Start: 03-28-2024 End: 03-28-[address] Constance Reyes MD -Ultrasound, [facility] Work Phone: Start: 03-28-2024 End: 03-28-2024 ambulatory Constance Reyes Facility:[facility] Start: 02-14-2024 ambulatory Angeles Frankl in [facility] Facility:[facility] Start: 01-25-2024 End: 01-25-[address] Chino Peace MD -[facility] Work Phone: Start: 01-25-2024 End: 01-25-2024 ambulatory Angelesfarideh Pantoja [facility] Facility:[facility] Start: 01-10-2024 End: 01-10-[address] oJsh Mijares MD -[facility] Work Phone: Start: 01-10-2024 End: 01-10-2024 ambulatory Angeles Kit [facility] Facility:[facility] Start: 12-11-2023 End: 12-11-2023 ambulatory Angeles Kit [facility] Facility:[facility] Start: 09-28-2023 End: 09-28-2023 ambulatory Angeles Kit [facility] Facility:[facility] Start: 09-27-2023 End: 09-28-2023 ambulatory Angeles Kit [facility] Facility:[facility] Start: 09-04-2023 ambulatory Angeles Frankl in [facility] Facility:[facility] Start: 09-04-2023 End: 09-04-2023 ambulatory Angeles Kit [facility] Facility:[facility] Start: 05-20-2023 End: 05-20-2023 Emergency department patient visit [facility] Work Phone: [facility] Work Phone: Start: 05-20-2023 End: 05-20-2023 ambulatory [facility] Facility:[facility] Start: 05-20-2023 End: 05-20-2023 Patient encounter procedure Heaven GUEVARA Work Phone: [facility] Comment on above: Dysuria (Primary Dx) ; Chest pain, unspecified type Start: 05-07-2023 End: 05-07-2023 Patient encounter procedure [facility] Work Phone: [facility] Work Phone: Start: 02-28-2023 End: 02-28-2023 Patient encounter procedure [facility] Work Phone: [facility]-Radiology, [facility] Work Phone: Start: 02-16-2023 End: 02-16-2023 Emergency department patient visit [facility] Work Phone: [facility] Work Phone: Start: 02-12-2023 End: 02-12-2023 [address] [facility] Work Phone: [facility] Work Phone: Start: 02-12-2023 End: 02-12-2023 Patient encounter procedure [facility] Work Phone: [facility]-Laboratory Work Phone: Start: 02-02-2023 End: 02-02-2023 ambulatory [facility] Work Phone: [facility] Work Phone: Start: 02-02-2023 End: 02-02-2023 Patient encounter procedure [facility] Work Phone: [facility]Medical Out Work Phone: Start: 01-14-2023 Refill Lina Vee DO Work Phone: Pain Management Comment on above: Refill Request Start: 12-16-2022 Refill Lina Vee DO Work Phone: Pain Management Comment on above: Refill Request Start: 12-04-2022 End: 12-04-2022 Patient encounter procedure [facility] Work Phone: [facility] Work Phone: Start: 11-16-2022 End: 11-16-2022 ambulatory LINA LAM Facility:[id number] Start: 11-11-2022 Telephone encounter Lina Lam DO Work Phone: Pain Management Start: 11-07-2022 End: 11-08-2022 ambulatory LINA LAM Facility:[id number] Start: 11-07-2022 End: 11-07-2022 Patient encounter procedure Lina Lam DO Work Phone: Pain Management Comment on above: Lumbar sprain, seque la (Primary Dx); Strain of tendon of right rotator cuff, sequela; Spinal stenosis, lumbar region, without neurogenic claudication; Chronic bilateral low back pain with bilateral sciatica; Type 2 diabetes mellitus without complication, with long-term current use of insulin (HCC) Start: 10-18-2022 Refill Rhonda Mcneal GOAT FARMER.MANGANESE BREAKER Work Phone: Pain Management Comment on above: Refill Request Start: 10-05-2022 Telephone encounter Ant huertas GOAT FARMER.MEDICAL RECORD ASSISTANT Work Phone: Pain Management Start: 10-04-2022 Telephone encounter Ant huertas GOAT FARMER.MEDICAL RECORD ASSISTANT Work Phone: Pain Management Start: 09-20-2022 Refill Rhonda [place] GOAT FARMER.MANGANESE BREAKER Work Phone: Pain Management Comment on above: Refill Request Start: 09-05-2022 End: 09-05-2022 Subsequent hospital visit by physician [facility] Work Phone: Radiology Start: 09-01-2022 Telephone encounter Rhonda richardson GOAT FARMER.MANGANESE BREAKER Work Phone: [facility] Comment on above: C-9 Status Start: 08-22-2022 Orders Only Rhonda Mcneal GOAT FARMER.MANGANESE BREAKER Work Phone: Pain Management Start: 08-22-2022 Patient encounter procedure [facility] Provider [facility] Department Start: 08-22-2022 Telephone encounter Rhonda richardson GOAT FARMER.MANGANESE BREAKER Work Phone: Pain [facility] Comment on above: med pa xtampza approval Start: 08-16-2022 Patient encounter procedure [facility] Provider [facility] Department Start: 08-15-2022 End: 08-16-2022 ambulatory RHONDA MCNEAL Facility:[id number] Start: 08-15-2022 End: 08-15-2022 Office outpatient visit 25 minutes Rhonda Mcneal GOAT FARMER.MANGANESE BREAKER Work Phone: Pain Management Comment on above: Lumbar sprain, seque la (Primary Dx); Spinal stenosis, lumbar region, without neurogenic claudication; Chronic bilateral low back pain with bilateral sciatica; High risk medication use Start: 08-04-2022 End: 08-04-2022 ambulatory [facility] Work Phone: [facility] Work Phone: Start: 08-04-2022 End: 08-04-2022 Patient encounter procedure [facility] Work Phone: [facility] Work Phone: Start: 07-14-2022 End: 07-14-2022 ambulatory [facility] Work Phone: [facility] Work Phone: Start: 07-14-2022 End: 07-14-2022 Patient encounter procedure [facility] Work Phone: [facility]Laboratory Start: 07-04-2022 End: 07-04-2022 Patient encounter procedure [facility] Work Phone: [facility] Endocr[facility]ology Start: 06-30-2022 End: 06-30-2022 ambulatory [facility] Work Phone: [facility] Work Phone: Start: 06-30-2022 End: 06-30-2022 Patient encounter procedure [facility] Work Phone: [facility]Laboratory Start: 06-01-2022 End: 06-01-2022 ambulatory [facility] Work Phone: [facility] Work Phone: Start: 06-01-2022 End: 06-01-2022 Patient encounter procedure [facility] Work Phone: [facility]Laboratory Start: 05-17-2022 End: 05-18-2022 ambulatory RHONDA FREDIS Facility:[id number] Start: 05-17-2022 End: 05-17-2022 Office outpatient visit 25 minutes Rhonda Fredis GOAT FARMER.MANGANESE BREAKER Work Phone: Pain Management Comment on above: Spinal stenosis, lum bar region, without neurogenic claudication; Chronic bilateral low back pain with bilateral sciatica; Lumbago-sciatica due to displacement of lumbar intervertebral disc; Lumbar sprain, sequela; High risk medication use Start: 05-09-2022 End: 05-09-2022 ambulatory [facility] Work Phone: [facility] Work Phone: Start: 05-09-2022 End: 05-09-2022 Patient encounter procedure [facility] Work Phone: [facility]-Outpatient Breast Imaging Start: 04-21-2022 Refill Rhonda [place] GOAT FARMER.MANGANESE BREAKER Work Phone: Pain Management Comment on above: Refill Request Start: 03-22-2022 Refill Rhonda Fredis GOAT FARMER.MANGANESE BREAKER Work Phone: Pain Management Comment on above: Refill Request Start: 03-21-2022 End: 03-21-2022 Patient encounter procedure [facility] Work Phone: [facility] Endocrinology Start: 02-16-2022 End: 02-16-2022 ambulatory LINA LAM Facility:[id number] Start: 02-15-2022 End: 02-16-2022 ambulatory RHONDA MCNEAL Facility:[id number] Start: 02-15-2022 End: 02-15-2022 Office outpatient visit 25 minutes Rhonda Mcneal GOAT FARMER.MANGANESE BREAKER Work Phone: Pain Management Comment on above: High risk medication use (Primary Dx); Lumbago-sciatica due to displacement of lumbar intervertebral disc; Spinal stenosis, lumbar region, without neurogenic claudication; Lumbar sprain, sequela; Chronic bilateral low back pain with bilateral sciatica Start: 02-03-2022 End: 02-03-2022 ambulatory [facility] Work Phone: [facility] Work Phone: Start: 02-03-2022 End: 02-03-2022 Patient encounter procedure [facility] Work Phone: [facility]-Medical Out Start: 01-16-2022 Refill Rhonda Mcneal GOAT FARMER.MANGANESE BREAKER Work Phone: Pain Management Comment on above: Refill Request Start: 01-02-2022 End: 01-02-2022 Patient encounter procedure [facility] Work Phone: [facility] Endocrinology Start: 12-19-2021 Refill Rhonda Mcneal GOAT FARMER.MANGANESE BREAKER Work Phone: Pain Management Comment on above: Refill Request Start: 12-12-2021 Telephone encounter Lina Lam DO Work Phone: [facility] Comment on above: Bwc (Worker's Comp) Returning Patient's Call Start: 12-09-2021 Telephone encounter Lina Lam DO Work Phone: Pain Management Comment on above: Patient Update Start: 11-15-2021 Telephone encounter Lina Lam DO Work Phone: [facility] Comment on above: Regarding Procedure Start: 11-03-2021 Telephone encounter Lina Lam DO Work Phone: Pain Management Comment on above: Orders Start: 10-24-2021 Refill Rhonda [place] GOAT FARMER.MANGANESE BREAKER Work Phone: Pain Management Comment on above: Refill Request Start: 10-19-2021 Refill Rhonda [place] GOAT FARMER.MANGANESE BREAKER Work Phone: Pain Management Comment on above: Refill Request Start: 09-19-2021 Refill Rhonda Fredis GOAT FARMER.MANGANESE BREAKER Work Phone: Pain Management Comment on above: Refill Request Start: 09-16-2021 Refill Rhonda Fredis GOAT FARMER.MANGANESE BREAKER Work Phone: Pain Management Comment on above: Refill Request Start: 08-21-2021 Orders Only Rhonda Mcneal GOAT FARMER.MANGANESE BREAKER Work Phone: Pain Management Start: 08-15-2021 End: 08-15-2021 Office outpatient visit 25 minutes Rhonda Fredis GOAT FARMER.MANGANESE BREAKER Work Phone: Pain Management Comment on above: [...] claudication Start: 08-15-2021 Chart abstracting Rhonda pollard GOAT FARMER.MANGANESE BREAKER Work Phone: [facility] Start: 07-26-2021 Refill Lina Vee DO Work Phone: Pain Management Comment on above: Refill Request Start: 07-26-2021 End: 07-26-2021 Patient encounter procedure [facility] Work Phone: [facility], [facility] Start: 07-26-2021 End: 07-26-2021 Patient encounter procedure [facility] Work Phone: [facility] Endocrinology Start: 05-03-2021 End: 05-03-2021 Patient encounter procedure [facility] Work Phone: [facility]Outpatient Breast Imaging Start: 04-10-2021 End: 04-10-2021 Patient encounter [facility] Start: 03-18-2021 End: 03-18-2021 Patient encounter procedure [facility] Start: 03-16-2021 End: 03-16-2021 Patient encounter procedure [facility] Start: 02-28-2021 End: 02-28-2021 Patient encounter procedure [facility] Start: 02-02-2021 Non-patient / Non-visit [facility] Work Phone: [facility] Start: 02-01-2021 Non-patient / Non-visit [facility] Work Phone: [facility] Start: 01-31-2021 Non-patient / Non-visit [facility] Work Phone: [facility] Start: 01-31-2021 End: 02-02-2021 Evaluation and management of inpatient [facility] Date Procedure Procedure Detail Performing Clinician Start: 07-29-2024 Vitamin D, 25-hydrox y measurement Angeles GARCIA Work Phone: Comment on above: Vitamin D StatusDefi ciency: <20 ng/mL (50nmol/L)Insufficiency: 20-30 ng/mL (50-75 nmol/L)Sufficiency: 30-100 ng/mL (75-250 nmol/L)Toxicity: >100 ng/mL (>250 nmol/L) Start: 05-22-2024 Plain X-ray abdomen Suly martinez Kit BLOOD BANK LABORATORY TECHNICIAN-C Work Phone: Start: 03-28-2024 Complete ultrasound of kidneys and bladder Angeles Kit BLOOD BANK LABORATORY TECHNICIAN-C Work Phone: Start: 05-20-2023 Plain chest X-ray [facility] Work Phone: Start: 05-20-2023 Urnls dip stick/tabl et rgnt auto w/o microscopy Heaven GUEVARA Work Phone: Start: 02-28-2023 X-ray of lumbosacral spine [facility] Work Phone: Start: 02-16-2023 Plain x-ray of elbow Vi [facility] Work Phone: Start: 02-16-2023 CT of head without contrast [facility] Work Phone: Start: 02-16-2023 Radiologic examinati on of knee [facility] Work Phone: Start: 09-05-2022 Us retroperitoneal r eal time w/image complete [facility] Provider Start: 05-09-2022 Screening mammography V [facility] Work Phone: Start: 05-03-2021 Plain chest X-ray [facility] Work Phone: Start: 05-03-2021 Screening mammography V [facility] Work Phone: Start: 01-31-2021 Plain chest X-ray [facility] Work Phone: Start: 01-31-2021 End: 01-31-2021 Legionella pneumophila antigen assay [facility] Work Phone: Start: 01-31-2021 Respiratory Panel (PCR) [facility] Work Phone: Start: 01-31-2021 Streptococcus pneumo niae Antigen (M [facility] Work Phone: Plan of Treatment Date Care Activity Detail Author Start: 03-24-2032 Urine microalbumin profile DTaP,Tdap,Td Vaccine (3 - Td or Tdap) [facility] Start: 02-06-2024 Advance Directive Discussion Advance Directive Discussion [facility] Start: 11-08-2023 BP Controlled (<130/80) BP Controlle d (<130/80) [facility] Start: 10-10-2023 Screening for osteoporosis Bone Density Screening [facility] Start: 10-07-2023 Covid-19 Vaccine () Covid-19 Vaccine () [facility] Start: 10-07-2023 Influenza vaccination Influenz a Vaccine (Season Ended) [facility] Start: 05-20-2023 [facility] Start: 05-20-2023 [facility] Start: 02-16-2023 [facility] Start: 02-05-2023 Behavioral Health Screening Behavioral Health Screening [facility] Start: 10-06-2022 Covid-19 Vaccine () Covid-19 Vaccine () [facility] Start: 10-06-2022 Influenza vaccination C [facility] Start: 08-15-2022 End: 10-15-2022 TOXASSURE FLEX 23, URINE TOXASSURE FLEX 23, URINE Lab Routine High risk medication use Expected: 08/15/2022, Expires: 10/15/2022 [facility] Work Phone: Comment on above: Expected: 08/15/2022 , Expires: 10/15/2022 Start: 05-17-2022 End: 07-17-2022 TOXASSURE FLEX 23, URINE TOXASSURE FLEX 23, URINE Lab Routine High risk medication use Expected: 05/17/2022, Expires: 07/17/2022 [facility] Work Phone: Comment on above: Expected: 05/17/2022 , Expires: 07/17/2022 Start: 02-05-2022 DEPRESSION ASSESSMENT DEPRESSION ASS ESSMENT [facility] Start: 10-06-2021 Influenza vaccination INFLUENZA (#1) [facility] Start: 07-28-2021 ANNUAL PCP TEAM BRICKLAYER'S ASSISTANT [place] DISEASE VISIT ANNUAL PCP TEAM CHRONIC DISEASE VISIT [facility] Start: 03-24-2021 COVID-19 VACCINE (4 - Booster for Pfizer series) COVID-19 VACCINE (4 - Booster for Pfizer series) [facility] Start: 02-05-2021 DEPRESSION ASSESSMENT DEPRESSION ASS ESSMENT [facility] Start: 06-19-2019 Hemoglobin A1c measurement HbA1C [facility] Start: 06-19-2019 Hemoglobin A1c/Hemoglobin.total in Blood HBA1C [facility] Start: 2018 Hepatitis B Vaccine (1 of 3 - Risk 3-dose series) Hepatitis B Vaccine (1 of 3 - Risk 3-dose series) [facility] Start: 2018 RSV Vaccine (1 - 1-d ose 60+ series) RSV Vaccine (1 - 1-dose 60+ series) [facility] Start: 2008 SHINGRIX VACCINE (1 of 2) SHINGRIX VACCINE (1 of 2) [facility] Start: 10-10-2003 COLOGUARD (FIT-DNA) COLOGUARD (FIT-D NA) [facility] Start: 10-10-2003 Colonoscopy COLONOSCOPY [facility] Start: 10-10-2003 COLORECTAL CANCER SCREENING COLORECTAL CANCER SCREENING [facility] Start: 10-10-[address] COLONOGRAPHY [facility] Start: 10-10-2003 FECAL OCCULT BLOOD FECAL OCCULT BLOO D [facility] Start: 10-10-2003 Screening for malign ant neoplasm of colon [facility] Start: 10-10-2003 SIGMOIDOSCOPY SIGMOIDOSCOPY [facility] Start: 1998 Mammography [facility] Start: 1998 Screening for malign ant neoplasm of breast Mammogram Screening [facility] Start: 1988 HPV TESTING HPV TESTING [facility] Start: 1988 Screening for malign ant neoplasm of cervix HPV Testing [facility] Start: 1988 Zoledronic acid therapy ALPHA- 1 ANTITRYPSIN DEFICIENCY SCREENING [facility] Start: 10-10-1979 PAP TESTING PAP TESTING [facility] Start: 10-10-1979 Screening for malign ant neoplasm of cervix Pap Testing [facility] Start: 1977 Urine microalbumin profile [facility] Start: 1976 Anxiety Screening Anxiety Screening [facility] Start: 1976 BP CONTROLLED (<130/80) BP CONTROLLE D (<130/80) [facility] Start: 1976 Depression Screening Depression Scre ening [facility] Start: 1976 Hepatitis B surface antibody level LDL CHOLESTEROL [facility] Start: 1976 [facility]PATITIS [facility] Start: 1976 Hepatitis C screening Hepatitis C [facility] Start: 1976 HIV SCREENING HIV SCREENING [facility] Start: 1976 HIV screening HIV Screening [facility] Start: 1976 SPIROMETRY SPIROMETRY [facility] Start: 1970 Adult depression screening assessment DEPRESSION SCREENING [facility] Start: 1968 3 comp foot exam completed DIABETIC FOOT EXAM [facility] Start: 1968 Diabetic foot examination Diabetic Foot Exam [facility] Start: 1968 Glaucoma screening Dilated Retinal E xam [facility] Start: 1968 Hepatitis B screening URINE ALBUMIN:CREATININE RATIO [facility] Start: 1968 Hepatitis C antibody , confirmatory test DILATED RETINAL EXAM [facility] Start: 1964 PNEUMOCOCCAL (1 - PCV) PNEUMOCOCCAL (1 - PCV) [facility] Start: 1964 Pneumococcal vaccination Pneum ococcal Vaccine (1 - PCV) [facility] Dstr nrolytc agnt parverteb fct addl crvcl/thora DSTR NROLYTC AGNT PARVERTEB FCT ADDL CRVCL/THORA Procedures Routine Lumbosacral neuritis Ordered: 08/15/2021 [facility] Work Phone: Comment on above: Ordered: 08/15/2021 MG Breast - bilatera l Screening [facility] Work Phone: Njx dx/ther agt pvrt facet jt crv/thrc 1 level NJX DX/THER AGT PVRT FACET JT CRV/THRC 1 LEVEL Procedures Routine Lumbosacral neuritis Ordered: 08/15/2021 [facility] Work Phone: Comment on above: Ordered: 08/15/2021 Njx dx/ther agt pvrt facet jt lmbr/sac 3+ level NJX DX/THER AGT PVRT FACET JT LMBR/SAC 3+ LEVEL Procedures Routine Lumbosacral neuritis Ordered: 08/15/2021 [facility] Work Phone: Comment on above: Ordered: 08/15/2021 Patient Education [facility] Work Phone: Patient referral [facility] Work Phone: Vitamin D, 25-hydrox y measurement [facility] Immunizations Immunization Date Immunization Notes Care Provider Zaria jaime 11-23-2021 influenza virus vaccine, unspecified formulation Rhonda 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 05-31-2020 Covid (Pfizer) [facility] Work Phone: [facility] 05-13-2020 COVID-19 vaccine, ag e 12+ yr (PFIZER-BIONTECH - PURPLE TOP) Lina Lam DO Work Phone: [facility] 04-22-2020 COVID-19 vaccine, ag e 12+ yr (PFIZER-BIONTECH - PURPLE TOP) Lina Lam DO Work Phone: [facility] 10-12-2019 tetanus toxoid, redu issac diphtheria toxoid, and acellular pertussis vaccine, adsorbed [facility] Work Phone: [facility] 11-21-2017 influenza, injectabl e, quadrivalent, preservative free [facility] Work Phone: [facility] 11-21-2017 influenza, seasonal, injectable [facility] Work Phone: [facility] Payers Date Payer Category Payer Self-pay [id number] 2018 Medicare (Managed Care) KYLE LOMBARDI HMO [id number] 2018 Unknown ANTHEM BLUE CROS S AND BLUE SHIELD ANTHEM MEDIBLUE HMO [id number] 2018-Present [phone] [address] [place] [address] [facility] [place] [id number] 2018 Medicare [id number] 2016 Medicaid [id number] 2015 Medicare [id number] 2008 Unknown [id number] 2008 Unknown [id number] 2008 Unknown [id number] Medicare ANTHEM MEDICARE SENIOR [place] [id number] Private Health Insurance [facility] [id number] Unknown [id number] Unknown [id number] Unknown [id number] Unknown OBC [facility] [id number] Unknown [id number]. 462 Unknown [id number] [id number]. 462 Unknown [id number] 2.840.1.406548.3.579.2. 462 Unknown [id number] 2.840.1.370798.3.579.2. 462 Unknown [id number] 2.840.1.881372.3.579.2. 462 Unknown [id number] 2.840.1.658465.3.579.2. 462 Unknown [id number] 2.840.1.294760.3.579.2. 462 Unknown [id number] 2.840.1.345645.3.579.2. 462 Unknown [id number] 2.840.1.312890.3.579.2. 462 Unknown [id number] 2.840.1.902179.3.579.2. 462 Unknown [id number] 2.840.1.160031.3.579.2. 462 Unknown [id number] 2.840.1.873881.3.579.2. 462 Unknown [id number] 2.840.1.298475.3.579.2. 462 Unknown [id number] 2.840.1.768278.3.579.2. 462 Unknown [id number] 2.840.1.665268.3.579.2. 462 Unknown [id number] 2.16.840.1.883467.3.579.2. 462 Unknown [id number]. 462 Social History Date Type Detail Facility Start: 01-31-2021 End: 05-20-2023 Tobacco smoking status SCIS Unknown if ever smoked [facility] Start: 06-21-2018 None [facility] Start: 10-12-2019 Spouse/ Signif icant Other [facility] Start: 11-10-2019 Non-smoker [facility] Start: 1960 Sex Assigned At Female C [facility] Start: 07-28-2020 End: 03-03-2024 Tobacco smoking status NHIS Ex-smoker [facility] History of tobacco use Cigarette Smoker C [facility] Start: 07-28-2020 End: 08-15-2022 Cigarettes smoked current (pack per day) - Reported 1 [facility] Start: 07-28-2020 End: 05-17-2022 Tobacco use and exposure Smokeless tobacco non-user [facility] Start: 07-28-2020 End: 05-12-2024 Alcohol intake Current non-drinker of alcohol (finding) [facility] Start: 08-05-2021 End: 12-23-2021 Exposure to SARS-CoV-2 (event) Not sure [facility] History of tobacco use Current smoker [facility] Start: 08-15-2022 End: 05-12-2024 Tobacco use panel [facility] National Score (1-10 0), lower number is lower risk 62 [facility] Start: 04-13-2021 Gender identity Identifies as female gender (finding) [facility] Start: 04-13-2021 Sexual orientation Heterosexual (fin ding) [facility] Start: 04-15-2024 End: 05-27-2024 Sex Female (finding) [facility] Medical Equipment Procedure Code Equipment Code Equipment Origin al Text Equipment Identifier Dates [id number] Im plant - [id number] Start: 05-13-2014 Comment on above: Description: STENT URET 4.7FR 28CM DBL P GTL use 1 NEEDLE to inject MEDICATION subcutaneously once daily Start: 01-24-2022 Comment on above: use 1 NEEDLE to inject MEDICATION subcut aneously once daily Insulin Syringe-Needle U-100 (Bd Insulin Syringe Ultra-Fine) 0.5 mL 31 gauge x 5/16 syringe Start: 04-13-2023 Insulin U-500 Syringe-Needle (Bd Insulin Syringe U-500) 1/2 mL 31 gauge x 15/64 syringe Start: 04-13-2023 End: 04-13-2023 Insulin Syringe-Needle U-100 (Bd Insulin Syringe Ultra-Fine) 0.5 mL 31 gauge x 5/16 syringe Start: 04-13-2023 Pen Needle, Diab etic (Bd Ultra-Fine Micro Pen Needle) 32 gauge x 1/4 needle Start: 04-10-2024 Insulin U-500 Syringe-Needle (Bd Insulin Syringe U-500) 1/2 mL 31 gauge x 15/64 syringe Start: 04-13-2023 End: 04-13-2023 Insulin Syringe-Needle U-100 (Bd Insulin Syringe Ultra-Fine) 0.5 mL 31 gauge x 5/16 syringe Start: 04-13-2023 Pen Needle, Diab etic (Bd Ultra-Fine Micro Pen Needle) 32 gauge x 1/4 needle Start: 04-10-2024 Insulin U-500 Syringe-Needle (Bd Insulin Syringe U-500) 1/2 mL 31 gauge x 15/64 syringe Start: 04-13-2023 End: 04-13-2023 Insulin Syringe-Needle U-100 (Bd Insulin Syringe Ultra-Fine) 0.5 mL 31 gauge x 5/16 syringe Start: 04-13-2023 Pen Needle, Diab etic (Bd Ultra-Fine Micro Pen Needle) 32 gauge x 1/4 needle Start: 04-10-2024 Insulin U-500 Syringe-Needle (Bd Insulin Syringe U-500) 1/2 mL 31 gauge x 15/64 syringe Start: 04-13-2023 End: 04-13-2023 Insulin Syringe-Needle U-100 (Bd Insulin Syringe Ultra-Fine) 0.5 mL 31 gauge x 5/16 syringe Start: 04-13-2023 Pen Needle, Diab etic (Bd Ultra-Fine Micro Pen Needle) 32 gauge x 1/4 needle Start: 04-10-2024 Insulin U-500 Syringe-Needle (Bd Insulin Syringe U-500) 1/2 mL 31 gauge x 15/64 syringe Start: 04-13-2023 End: 04-13-2023 Functional Status Date Assessment Result Facility 02-02-2021 Functional status Chair [facility] Work Phone: 08-19-2014 Are you deaf, or do you have serious difficulty hearing No 08/19/2014 11:22 AM OSITOT Lyudmila Gordon MA [facility] 08-19-2014 Are you blind, or do you have serious difficulty seeing, even when wearing glasses No 08/19/2014 11:22 AM EDT Lyudmila Gordon MA [facility] 08-19-2014 Do you have serious difficulty walking or climbing stairs No 08/19/2014 11:22 AM EDT Lyudmila Gordon MA [facility] 08-19-2014 Do you have difficul ty dressing or bathing No 08/19/2014 11:22 AM OSITOT Lyudmila Gordon MA [facility] 08-19-2014 Because of a physica l, mental, or emotional condition, do you have difficulty doing errands alone such as visiting a physician's office or shopping No 08/19/2014 11:22 AM OSITOT Lyudmila Gordon MA [facility] Mental Status Date Assessment Result Facility 05-20-2023 Cognitive function Awake;Alert;A ppropriate;Fol lows Commands [facility] Work Phone: 02-02-2023 Cognitive function Awake;Alert;A ppropriate;Fol lows Commands [facility] Work Phone: 08-04-2022 Cognitive function Awake;Alert;A ppropriate;Fol lows Commands [facility] Work Phone: 02-03-2022 Cognitive function Level Of Cons ciousness Awake;Alert;Appropriate;Fol lows Commands [facility] Work Phone: 02-02-2021 Cognitive function Cooperative;Anxious [facility] Work Phone: 08-19-2014 Because of a physica l, mental, or emotional condition, do you have serious difficulty concentrating, remembering, or making decisions No 08/19/2014 11:22 AM OSITOT Lyudmila Gordon MA [facility] Clinical Notes 05-12-2015 to 05-23-2024 Dakotah Romo APRN.[facility] - 05/12/2024 8:57 AM EDT Note Date & Type Note Facility 05-23-2024 Radiology Diagnostic study note [facility] [address] [place], [place] [address] [employer] Decub and/or Erect MR#: [id number] Acct: [id number] Name: ESTELA KENNEY Rep #: [id number] : 1960 F 63 From: Mike Flor MD PCP: Angeles Pantoja Jack, BLOOD BANK LABORATORY TECHNICIAN-C Status: REG CLI Study:[employer]d Inc Decub and/or Erect Date of Exam : 05/22/24 Exam# [id number] Ordering Dr: Slim Mathias [facility] BLOOD BANK LABORATORY TECHNICIAN-Jack PROCEDURE: ABD INC DECUB AND/OR ERECT 05/22/2024 REASON FOR EXAM: UNSPECIFIED ABDOMINAL PAIN TECHNIQUE: Single view abdomen. COMPARISON: CT scan on 02/23/2018. FINDINGS: Moderate amount of fecal residue in the large bowels. Metallic clips are noted in the right upper quadrant. Normal visualized lung bases. There is an unremarkable bowel gas pattern. There is no demonstrated free abdominal air. Normal visualized liver. Normal visualized spleen. Suspected bilateral tiny renal stones with the largest measuring 3 mm. The soft tissue structures of the pelvis are unremarkable. Moderate diffuse spondylosis. Unremarkable spinal fusion metallic hardware. RAD/[employer]d Inc Decub and/or Erect IMPRESSION: Moderate amount of fecal residue in the large bowels. [id number] CC: [facility] BLOOD BANK LABORATORY TECHNICIAN-C Angeles Pantoja; [place] [facility] BLOOD BANK LABORATORY TECHNICIAN-C Mey ~ Evening Or Night Nurse Supervisor: Signed [facility] 05-12-2024 Note HNO ID: [id number] Author: DAKOTAH ROMO APRN.MEDICAL RECORD ASSISTANT Service: ? Author Type: Nurse Practitioner Type: Progress Notes Filed: 05/12/2024 09:01 Note Text: Subjective HPI Nontoxic-appearing 63-year-old female presents urgent care chief complaint nausea abdominal pain. Duration of symptom 1 month. Associated symptoms listed above. Presents today for evaluation. OTC medications MiraLAX. This did not help. No fevers. No blood in the stool. Past medical history prescription medications allergies reviewed. .Patient presents with: Constipation: nausea, stomach issues x 1 month PAST MEDICAL HISTORY Diagnosis Date Anxiety COPD [...] ALLERGIES Bee Venom Protein (Honey Bee) MEDICATIONS omeprazole (PRILOSEC) 40 mg capsule Take 40 mg by mouth once daily. amLODIPine (NORVASC) 5 mg tablet Take by mouth once daily. furosemide (LASIX ORAL) Take by mouth. ACYCLOVIR ORAL Take by mouth. OZEMPIC 0.25 mg or 0.5 mg (2 mg/3 mL) pen 0.25 mg. oxyCODONE-acetaminophen (PERCOCET) 5-325 mg tablet Take 1 [...] three times a day for 30 days. nystatin (MYCOSTATIN) cream Zinc Sulfate 25 mg [...] Take 10 mg by mouth once daily. insulin glargine (LANTUS SOLOSTAR U-100 INSULIN) 100 unit/mL (3 mL) Inject 40 Units subcutaneously daily at bedtime. albuterol HFA (PROVENTIL HFA, VENTOLIN HFA) 90 [...] Take by mouth 3 times a WEEK. zolpidem (AMBIEN) 10 mg Take by mouth at bedtime as needed. HUMALOG KWIKPEN INSULIN 100 unit/mL Inject 4 Units subcutaneously daily with dinner. (Patient not taking: Reported on 05/20/2023) meloxicam (MOBIC) 7.5 mg tablet Take 1 tablet by mouth two times a day. With food. (Patient not taking: Reported on 05/12/2024) cyclobenzaprine (FLEXERIL) 10 mg tablet Take 1 tablet by mouth three times a day. (Patient not taking: Reported on 02/16/2023) famotidine (PEPCID) 20 mg tablet Take 20 mg by mouth twice daily as needed. (Patient not taking: Reported on 05/20/2023) fluticasone (FLONASE) 50 mcg/actuation nasal spray fluticasone propionate 50 mcg/actuation nasal spray,suspension instill 1 (more content not included)... [facility] 05-12-2024 History of Present illness Narrative Subjective HPI Nontoxic-appearing 63-year-old female presents urgent care chief complaint nausea abdominal pain. Duration of symptom 1 month. Associated symptoms listed above. Presents today for evaluation. OTC medications MiraLAX. This did not help. No fevers. No blood in the stool. Past medical history prescription medications allergies reviewed. .Patient presents with: Constipation: nausea, stomach issues x 1 month PAST MEDICAL HISTORY Diagnosis Date Anxiety COPD [...] ALLERGIES Bee Venom Protein (Honey Bee) MEDICATIONS omeprazole (PRILOSEC) 40 mg capsule Take 40 mg by mouth once daily. amLODIPine (NORVASC) 5 mg tablet Take by mouth once daily. furosemide (LASIX ORAL) Take by mouth. ACYCLOVIR ORAL Take by mouth. OZEMPIC 0.25 mg or 0.5 mg (2 mg/3 mL) pen 0.25 mg. oxyCODONE-acetaminophen (PERCOCET) 5-325 mg tablet Take 1 [...] three times a day for 30 days. nystatin (MYCOSTATIN) cream Zinc Sulfate 25 mg [...] Take 10 mg by mouth once daily. insulin glargine (LANTUS SOLOSTAR U-100 INSULIN) 100 unit/mL (3 mL) Inject 40 Units subcutaneously daily at bedtime. albuterol HFA (PROVENTIL HFA, VENTOLIN HFA) 90 [...] Take by mouth 3 times a WEEK. zolpidem (AMBIEN) 10 mg Take by mouth at bedtime as needed. HUMALOG KWIKPEN INSULIN 100 unit/mL Inject 4 Units subcutaneously daily with dinner. (Patient not taking: Reported on 05/20/2023) meloxicam (MOBIC) 7.5 mg tablet Take 1 tablet by mouth two times a day. With food. (Patient not taking: Reported on 05/12/2024) cyclobenzaprine (FLEXERIL) 10 mg tablet Take 1 [...] zinc (110 mg) tab Take by mouth. losartan (COZAAR) 50 mg tablet Take 100 mg by mouth once daily. (Patient not taking: Reported on 05/12/2024) DEXLANSOPRAZOLE (DEXILANT ORAL) Take by mouth. (Patient not taking: Reported on 05/12/2024) budesonide-formoterol (SYMBICORT) 160-4.5 mcg/actuation inhaler Inhale 2 [...] Social History Tobacco Use Smoking status: Former Current packs/day: 1.00 Average packs/day: 1 pack/day for 30.0 years (30.0 ttl pk-yrs) Types: Cigarettes Smokeless tobacco: Never Substance Use Topics Alcohol use: No Drug use: No BP 144/82 Pulse 88 Temp 36.1 C (97 F) Resp 16 Wt 75.1 kg (165 lb 9.1 oz) SpO2 97% BMI 32.33 kg/m Review of Systems Constitutional: Negative for chills, fever and malaise/fatigue. HENT: Negative for congestion, ear discharge, ear pain, sinus pain and sore throat. Eyes: Negative for blurred vision, pain, discharge and redness. Respiratory: Negative for cough, hemoptysis, sputum production, shortness of breath, wheezing and stridor. Cardiovascular: Negative for chest pain. Gastrointestinal: Positive for abdominal pain and nausea. Negative for diarrhea and vomiting. Musculoskeletal: Negative for myalgias. Skin: Negative for itching and rash. Neurological: Negative for dizziness and headaches. Objective Physical Exam Constitutional: General: She is not in acute distress. Appearance: She is not toxic-appearing. HENT: Head: Normocephalic. Nose: Nose normal. Eyes: Pupils: Pupils are equal, round, and reactive to light. Cardiovascular: Rate and Rhythm: Normal rate. Pulmonary: Effort: Pulmonary effort is normal. No respiratory distress. Abdominal: Tenderness: There is abdominal tenderness. There is no right CVA tenderness, left CVA tenderness, guarding or rebound. Musculoskeletal: Cervical back: Normal range of motion. Skin: General: Skin is warm and dry. Neurological: General: No focal deficit present. Mental Status: She is alert. ASSESSMENT/PLAN: 1. Abdominal pain, unspecified abdominal location - ICD9: 789.00, ICD10: R10.9 Diagnosed with abdominal pain. Patient was instructed to contact gastroenterology's office today. If unable to be seen by ict support and test engineers will be seen in the ED. Verbalized understand agrees with plan of care Dakotah Romo APRN.MEDICAL RECORD ASSISTANT documented in this encounter [facility] 04-10-2024 Evaluation note Diagnosis Onset Date Resolution Neuroma of hand acute April 9:15am [facility] Work Phone: 1(397) 211-795602-25-2025 Evaluation note* Diagnosis Onset Date Resolution Status Admit Date Osteoporosis chronic March 2:18pm Neuroma of hand acute April 9:15am [facility] Work Phone: 1(594) 972-681812-20-2024 Evaluation note* Diagnosis Onset Date Resolution Status Admit Date Diabetes mellitus type 2 in obese chronic January 24, 2 024 1:03pm Essential hypertension chronic cem2023 1:03pm Hypercalcemia chronic January 242023 1:03pm Obesity (BMI 30.0-34.9) chronic D ec2023 1:03pm Osteoporosis chronic January 1:03pm Type 2 diabetes with stage 3 chronic kidney disease GFR 30-59 chronic January 24, 2 024 1:03pm Osteoporosis chronic March 2:18pm Neuroma of hand acute April 9:15am [facility] Work Phone: 1(164) 557-633612-05-2024 Chief complaint+Reason for visit Narrative * Chief Complaint Admit Date REEVALUATION NEUROMA SURG January 10, 2024 1:03pm 8 M FU January 25, 2024 1:03pm CHRONIC KIDNEY DISEASE March 28 1:26pm Prolia B&B April 01, 2024 2:18pm 3 M F/U April 10, 2024 9:15 am Reason for Visit Admit Date Neuroma of hand January 10, 2024 1 :03pm Right hand pain January 10, 2024 1 :03pm Diabetes mellitus type 2 in obese Decemb er 2023 1:03pm Essential hypertension January 24 1:03pm Hypercalcemia January 25, 2024 1:03pm Obesity (BMI 30.0-34.9) January 24, 2 024 1:03pm Osteoporosis January 25, 2024 1:03pm Type 2 diabetes with stage 3 chronic kidney disease GFR 30-59 January 25, 2024 1:03pm Osteoporosis April 01, 2024 2:18pm Neuroma of hand April 10, 2024 9:[address] [facility] Work Phone: 1(460) 844-149212-05-2024 Evaluation note* Diagnosis Onset Date Resolution Status Admit Date Neuroma of hand acute January 10, 2024 1:03pm Right hand pain acute January 10, 2024 1:03pm Diabetes mellitus type 2 in obese chronic January 24, 2 024 1:03pm Essential hypertension chronic De cember 2023 1:03pm Hypercalcemia chronic January 242023 1:03pm Obesity (BMI 30.0-34.9) chronic D ecember 2023 1:03pm Osteoporosis chronic January 1:03pm Type 2 diabetes with stage 3 chronic kidney disease GFR 30-59 chronic January 24, 2 024 1:03pm Osteoporosis chronic March 2:18pm Neuroma of hand acute April 9:15am [facility] Work Phone: 1(539) 348-708107-30-2024 [facility] Medical Records Department [address] [place] [id number] History Physical Exam 09/04/23 0708 MR#: [id number] Acct: [id number] Name: ESTELA KENNEY Rep #: [id number] : 1960 62 From: Joyce Barboza MD PCP: MIKE Damian, BLOOD BANK LABORATORY TECHNICIAN-C Status:[facility] Location: [place] [address] HPI - General General Date of Service: 09/04/23 [facility] Laine KENNEY, is a 62 F who presents for an EGD as her previous EGD on 07/13/2023 was aborted due to retained food likely due to patient's diabetic medication. Patient did not complete the Carafate and currently on omeprazole states her left upper quadrant pain is much better. Currently denies any abdominal pain on exam. 07/13/23 HPI Laine KENNEY, is a 62 F who presents for an EGD. Patient states she was doing well on the omeprazole and Carafate until this morning she complains of left upper quadrant and epigastric and some burning up her esophagus. Patient states she may have had a heavier meal last night. office visit 06/06/23 HPI HPI: 62-year-old female presents due to reflux and EGD. Patient has been on medication for years. Patient has previously been on Dexilant for about 10 years off for about the last month currently on omeprazole and Carafate 4 times daily started mid last month. Patient states she previously was also on namebrand Nexium prior to the Dexilant. Patient states her symptoms are burning up the esophagus which have improved since starting on the Carafate. Patient a colonoscopy in 2019. [facility] Medical History (Updated 08/30/23 @ 13:47 by Connie Singer) History of renal disease Easy bruising Excessive bleeding On home oxygen therapy Wears dentures Wears glasses Post-menopausal History of steroid therapy Insulin dependent diabetes mellitus Gout Back pain Gastric reflux Former smoker Shortness of breath on exertion Leg cramps History of echocardiogram History of stress test Cardiology follow-up encounter Vitamin D deficiency Type 2 diabetes with stage 3 chronic kidney disease GFR 30-59 Osteoporosis Hypercalcemia Hyperparathyroidism Pneumonia Leukocytosis Occasional tremors Abnormal EKG Left anterior fascicular block (LAFB) Essential hypertension Depression with anxiety Fracture of right wrist Arthritis History of back problems Obesity (BMI 30.0-34.9) REINALDO (acute kidney injury) Nephrolithiasis COPD (chronic obstructive pulmonary disease) GERD (gastroesophageal reflux disease) Atypical chest pain Diabetes mellitus type 2 in obese Home Medications ???Medication ???Instructions ???Recorded ???Last Taken ???Type multivitamin with folic acid 400 1 tab PO DAILY supplement 06/13/13 07/12/23 History mcg tablet pravastatin 80 mg tablet 80 mg PO QHS cholesterol 06/13/13 09/03/23 History aspirin 81 mg tablet,delayed 81 mg PO DAILY heart health 05/06/20 08/31/23 History release (Adult Low Dose Aspirin) oxycodone-acetaminophen 5 mg-325 1 tab PO TID PRN Pain Or Fever 05/06/20 07/13/23 06:15 History mg tablet (Percocet) pregabalin 100 mg capsule 100 mg PO TID neuropathy 05/06/20 09/03/23 History sennosides 15 mg tablet 15 mg PO BID PRN Constipation 01/31/21 07/12/23 History vitamin B complex 1 cap PO DAILY supplement 01/31/21 07/12/23 History ascorbate calcium (vitamin C) 500 500 mg PO DAILY 07/26/21 07/12/23 History mg tablet cholecalciferol (vitamin D3) 50 50 mcg PO DAILY 06/21/22 06/06/24 History mcg (2,000 unit) capsule oxycodone myristate 13.5 mg 13.5 mg PO BID 07/26/21 07/13/23 06:15 History capsule sprinkle extend release 12hr(DON'T CRUSH) (Xtampza ER) zinc sulfate 25 mg zinc (110 mg) 50 mg PO DAILY 07/26/21 07/12/23 History tablet insulin syringe-needle U-100 0.5 #100 ea 04/13/23 Unknown Rx mL 31 gauge x 5/16 (BD Insulin Syringe Ultra-Fine) losartan 50 mg tablet 50 mg PO BID 05/07/23 09/04/23 History magnesium 250 mg tablet 400 mg PO BID Leg cramps 05/07/23 07/12/23 History meloxicam 7.5 mg tablet 7.5 mg PO BID 05/07/23 07/11/23 History cetirizine 10 mg capsule (All Day 10 mg PO DAILY PRN allergy symptoms 07/11/23 07/12/23 History Allergy (cetirizine)) cinnamon bark 500 mg capsule 1,000 mg PO DAILY 07/11/23 07/12/23 History (Cinnamon) docusate sodium 100 mg capsule 100 mg PO DAILY 07/11/23 07/12/23 History (Col-Rite) insulin glargine 100 unit/mL (3 37 unit subcut QHS 07/11/23 09/03/23 History mL) subcutaneous pen (Lantus Solostar U-100 Insulin) metformin 500 mg tablet,extended 500 mg PO DAILY 07/11/23 07/12/23 History release 24 hr omeprazole 40 mg capsule,delayed 40 mg PO DAILY 07/11/23 09/04/23 History release oxybutynin chloride 10 mg 10 mg PO DAILY 07/11/23 09/04/23 History tablet,extended release 24 hr semaglutide 1 mg/dose (4 mg/3 mL) 1 mg subcut WE 07/11/2308/28 (more content not included)...[facility]04-14-2024 NoteHNO ID: [id number] Author: HEAVEN HEREDIA PA Service: ? Author Type: Physician Bench Loom Weaver Type: Progress Notes Filed: 05/20/2023 12:28 Note Text: This note was created using NoteWriter. Subjective Estela Kenney is a 62 year [...] THIGH ONCE WITH ONSET OF ALLERGIC REACTION [employer] JUSTICE 2 SENSOR kit apply 1 SENSOR [...] Inject 4 Units subcutane (more content not included)...[facility]04-14-2024 History of Present illness Narrative* Heaven Heredia PA - 05/20/2023 12:24 PM EDT This note was created using HouseTabter. Subjective Estela Kenney is a 62 year [...] ER evaluation. ISMAEL Hess documented in this encounterPrem[facility]23 NoteHNO ID: [id number] Author: Lina Lam, DO Service: ? Author Type: Physician Type: Progress Notes Filed: 11/11/2022 9:43 AM Note Text: Summary: Pain Management follow-up DATE: November 07, 2022 claim # [id number] DOI: 03/09/2008 Allowed diagnosis: S43.401A, S33.5XXA, S40.011A, S50.11XA, S30.0XA, S46.011A, M54.17, S43.431A, M25.811, M51.27, M75.41, M19.077, M48.061 Chief Complaint: Lower back History of Present Illness: Estela Kenney is a 62 year old female being seen at [facility] for a evaluation and/or management of their chronic pain. The patient was last seen in the office on 08/15/2022 by Rhonda Mcneal NP, and the plan of care was [...] other (htn) Sister other (more content not included)...[facility]10-03-2023 Instructions * Patient Instructions* Lina Lam DO - 11/07/2022 2:38 PM EDT Continue [...] transfer of care to Dr. Gold in [place], [place] documented in this encounterPremier [facility]10-03-2023 History of Present illness Narrative* Lina Lam DO - 11/07/2022 2:30 PM EDTSummary: Pain Management follow-up DATE: November 07, 2022 claim # [id number] DOI: 03/09/2008 Allowed diagnosis: S43.401A, S33.5XXA, S40.011A, S50.11XA, S30.0XA, S46.011A, M54.17, S43.431A, M25.811, M51.27, M75.41, M19.077, M48.061 Chief Complaint: Lower back History of Present Illness: Estela Kenney is a 62 year old female being seen at [facility] for a evaluation and/or management of their chronic pain. The patient was last seen in the office on 08/15/2022 by Rhonda Mcneal NP, and the plan of care was [...] mg by mouth twice daily as needed. [employer] JUSTICE 2 SENSOR kit apply 1 SENSOR [...] acute distress, alert. No antalgic gait, no caneor walker noted Psych: Mood and affect appropriate. [...] straight leg raise from sitting position bilaterally.Negative Faberesign bilaterally ASSESSMENT: Lumbar sprain, sequela (primary encounter [...] encounter was entered by Vijaya Matthews, medical unit secretary for Dr. Lina Lam on November 07, 2022 I, Dr. Lina Lam, personally performed the services described in this documentation. All medical record entries made by the scribe were at my direction and in my presence. I have reviewed the chart and discharge instructions and agree that the record reflects my personal performance and is accurate and complete. Electronically Signed: Dr. Lam. November 07, 2022. documented in this encounterPremier Health [facility]09-14-2023 Miscellaneous Notes* Telephone Encounter - Yoel Padgett APRN.MEDICAL RECORD ASSISTANT - 10/19/2022 8:08 PM EDT The following approved medication requests have been [...] October 21, 2022. Authorizing Provider: YOEL PADGETT APRN.MEDICAL RECORD ASSISTANT * Telephone Encounter - Rita Ayala RN - 10/18/2022 1:41 PM EDT Patient phones requesting refills as follows: Requested [...] Last UDS: No results found for: SUMM @FLOW([id number])@ No results found for: SUMM No results found for: SUMMAR Please review and advise. Rita Ayala RN documented in this encounterPremier Health [facility] Center08-31-2023 Miscellaneous Notes* Telephone Encounter - Candace Ely MA - 10/05/2022 6:43 AM EDTSummary: Health Maintenance Review Items addressed in this encounter: Health Maintenance Review Able to close encounter. Candace Ely MA October 05, 2022 6:43 AM 6:43 AM documented in this encounterPremier Health [facility]08-30-2023 Miscellaneous Notes* Telephone Encounter - Candace Ely MA - 10/04/2022 2:48 PM EDTSummary: Follow up Appt changed Items addressed in this encounter: Health Maintenance Review Follow up appt changed Able to close encounter. Candace Ely MA October 04, 2022 2:49 PM 2:49 PM documented in this encounterPremier Health [facility]08-16-2023 Miscellaneous Notes* Telephone Encounter - Rhonda Mcneal APRN.CNS - 09/20/2022 4:49 PM EDT The following approved medication requests have been transmitted electronically. Requested Prescriptions Signed Prescriptions Disp Refills cyclobenzaprine (FLEXERIL) 10 mg tablet 90 tablet 0 Sig: Take 1 tablet by mouth three times daily. Authorizing Provider: RHONDA MCNEAL meloxicam (MOBIC) 7.5 mg tablet 60 tablet 0 Sig: Take 1 tablet by mouth twice daily. With food. Authorizing Provider: RHONDA MCNEAL oxyCODONE myristate (XTAMPZA ER) 13.5 mg CSpT 60 Each 0 Sig: Take 1 capsule by mouth every 12 hours for 30 days. Do not start before September 21, 2022. Authorizing Provider: RHONDA MCNEAL oxyCODONE-acetaminophen (PERCOCET) 5-325 mg tablet 90 tablet 0 Sig: Take 1 tablet by mouth three times daily as needed for pain for up to 30 days. Do not start before September 21, 2022. Authorizing Provider: RHONDA MCNEAL pregabalin (LYRICA) 100 mg capsule 90 capsule 0 Sig: Take 1 capsule by mouth three times daily for 30 days. Do not start before September 21, 2022. Authorizing Provider: RHONDA MCNEAL APRN.MANGANESE BREAKER * Telephone Encounter - Rita Ayala RN - 09/20/2022 2:05 PM EDT Patient phones requesting refills as follows: Requested [...] Last UDS: No results found for: SUMM @FLOW([id number])@ No results found for: SUMM No results found for: SUMMAR Please review and advise. Rita Ayala RN documented in this encounterPremier Health [facility]08-01-2023 History of Present illness Narrative* Angeles Perez RDMS - 09/05/2022 1:00 PM EDT Radiology Service Progress Note PATIENT NAME: Estela Kenney DATE OF SERVICE: September 05, 2022 TIME: 2:14 PM PATIENT IDENTITY VERIFICATION COMPLETED USING TWO (2) IDENTIFIERS: Name and Date of confirmedby patient verbally. FALL SCREENING: Has the patient [...] 05, 2022 2:14 PM documented in this encounterPremier Health [facility] Center07-28-2023 Miscellaneous Notes* Telephone Encounter - Graciela Dhaliwal - 09/01/2022 10:59 AM EDT I sent an e-mail regarding the status of the C-9 for left L3-S1 SNRB. Graciela September 01, 2022 11:00 AM documented in this encounterPremier Health [facility] Center07-18-2023 Miscellaneous Notes* Telephone Encounter - Keri Aguiar MA - 08/22/2022 5:17 PM EDT Xtampza er approved through [facility] Approved 08/22/22-08/23/23 I indexed approval letter Keri Aguiar MA August 22, 2022 5:18 PM documented in this encounterPremier Health [facility]07-18-2023 Miscellaneous Notes* Telephone Encounter - Keri Aguiar MA - 08/22/2022 3:49 PM EDT Xtampza er pa sent to [facility] through [a][employer] with 2 ov notes,soapp,uds, and contract. Keri Aguiar MA August 22, 2022 3:50 PM documented in this encounterPremier Health [facility]07-11-2023 NoteHNO ID: [id number] Author: Rhonda Mcneal APRN.MANGANESE BREAKER Service: ? Author Type: Clinical Nurse Specialist Type: Progress Notes Filed: 08/15/2022 3:37 PM Note Text: SUBJECTIVE: Estela M Pablito [facility] for a follow-up appointment for back pain [facility] Last seen by me on [...] bilaterally.Negative Fabere sign bilaterally ASSESSMENT: claim # [id number] DOI: 03/09/2008 Allowed diagnosis: S43.401A, S33.5XXA, S40.011A, [...] and consistent UDS re (more content not included)...[facility]07-11-2023 Instructions* Patient Instructions* Rhonda Mcneal APRN.CNS - 08/15/2022 3:26 PM EDT Continue Flexeril [...] Followup in 3 months documented in this encounterPremier Health [facility]07-11-2023 History of Present illness Narrative* Rhonda Mcneal APRN.CNS - 08/15/2022 3:00 PM EDT SUBJECTIVE: Estela Kenney [facility] for a follow-up appointment for back pain [facility] Last seen by me on 05/17/22 with following plan of care: Continue Flexeril PRN Continue Xtampza and percocet These medications helps patient perform ADL, interact with family andfriends.No misuse or aberrant behaviors detected. OAARS reviewed and consistent UDS reviewed and consistent Sumbit C9 and order UDS Continue lyrica 100mg TID Continue Mobic Followup in 3 months in office Last procedure:02/16/22 left L3-S1 SNRT BLK 75% relief Pain level:4/10 Denies any ED visits or [...] bilaterally.Negative Fabere sign bilaterally ASSESSMENT: claim # [id number] DOI: 03/09/2008 Allowed diagnosis: S43.401A, S33.5XXA, S40.011A, [...] with the above and verbalized understanding. Rhonda Mcneal APRN.CNS August 15, 2022 documented in this encounterPremier Health [facility]04-12-2023 NoteHNO ID: [id number] Author: Rhonda Mcneal APRN.CNS Service: ? Author Type: Clinical Nurse Specialist Type: Progress Notes Filed: 05/17/2022 2:41 PM Note Text: SUBJECTIVE: Estela Kenney [facility] for a follow-up appointment for back pain [facility] Last seen by tori dumont 02/15/22 with [...] procedure 02/16/22 Left L3-S1 SNRT BLK Pain level:3-05/15 States had 75% relief from injection States [...] daughter Psych: Mood and affect appropriate. Skin: [place], warm, and dry Pulm: no conversational shortness [...] Negative Fabere sign bilaterally ASSESSMENT: claim # [id number] DOI: 03/09/2008 Allowed diagnosis: S43.401A, S33.5XXA, S40.011A, S50.11XA, S30.0XA, S46.011A, M54.17, S43.431A, M25.811, M51.27, M75.41, M19.077, M48.061 (M48.061) Spinal stenosis, lumbar region, without neurogenic claudication (M54.42, M54.41, G89.29) Chronic bilateral low back pain with bilateral sciatica (M51.27) Lumbago-sciatica due to displacement of lumbar intervertebral disc (S33.5XXS) Lumbar sprain, sequela (Z79.899) High risk medication use (more content not included)...[facility]04-12-2023 Instructions* Patient Instructions* Rhonda Mcneal APRN.CNS - 05/17/2022 2:31 PM EDT Continue Flexeril PRN Continue Xtampza and percocet These medications helps patient perform ADL, interact with family andfriends.No misuse or aberrant behaviors detected. OAARS reviewed and consistent UDS reviewed and consistent Sumbit C9 and order UDS Continue lyrica 100mg TID Continue Mobic Followup in 3 months in office documented in this encounterPremier Health [facility]04-12-2023 History of Present illness Narrative* Rhonda Mcneal APRN.CNS - 05/17/2022 2:15 PM EDT SUBJECTIVE: Estela Tori Kenney [facility] for a follow-up appointment for back pain [facility] Last seen by tori dumont 02/15/22 with following plan of care: Continue Flexeril PRN Continue Xtampza and percocet These medications helps patient perform ADL, interact with family andfriends.No misuse or aberrant behaviors detected. OAARS reviewed [...] daughter Psych: Mood and affect appropriate. Skin: [place], warm, and dry Pulm: no conversational shortness of breath or cough GI: Abdomen soft and non-tender. Musculoskeletal: Positive tenderness to palpation in the lumbar paraspinal muscles and gluteal without spasms. Deferred toe and heel raise Deferred knee bend due to balance. Lumbar range of motion with guarded stiff movements throughout Strength is 4/5 BLE Straight leg raise is positive bilaterally, Negative Faberesign bilaterally ASSESSMENT: claim # [id number] DOI: 03/09/2008 Allowed diagnosis: S43.401A, S33.5XXA, S40.011A, [...] helps patient perform ADL, interact with family andfriends.No misuse or aberrant behaviors detected. OAARS reviewed and consistent UDS reviewed and consistent Sumbit C9 and order UDS Continue lyrica 100mg TID Continue Mobic Followup in 3 months in office The above plan and management options were discussed at length with the patient. The patient is in agreement with the above and verbalized understanding. Rhonda Mcneal APRN.CNS May 17, 2022 documented in this encounterPremier Health [facility]03-19-2023 Miscellaneous Notes* Telephone Encounter - Rhonda Mcneal APRN.CNS - 04/23/2022 11:09 AM EDT The following approved medication requests have been transmitted electronically. Requested Prescriptions Signed Prescriptions Disp Refills oxyCODONE myristate (XTAMPZA ER) 13.5 mg CSpT 60 Each 0 Sig: Take 13.5 mg by mouth every 12 hours for 30 days. Authorizing Provider: RHONDA MCNEAL oxyCODONE-acetaminophen (PERCOCET) 5-325 mg tablet 90 tablet 0 Sig: Take 1 tablet by mouth three times daily as needed for pain for up to 30 days. Do not start before April 25, 2022. Authorizing Provider: RHONDA MCNEAL pregabalin (LYRICA) 100 mg capsule 90 capsule 0 Sig: Take 1 capsule by mouth three times daily for 30 days. Do not start before April 25, 2022. Authorizing Provider: RHONDA MCNEAL APRN.CNS * Telephone Encounter - Rita Ayala RN - 04/21/2022 2:05 PM EDT Patient phones requesting refills as follows: Requested [...] Last UDS: No results found for: SUMM @FLOW([id number])@ No results found for: SUMM No results found for: SUMMAR Please review and advise. Rita Ayala RN documented in this encounterPremier Health [facility]02-16-2023 Miscellaneous Notes* Telephone Encounter - Rhonda Mcneal APRN.MANGANESE BREAKER - 03/23/2022 8:12 AM EST The following approved medication requests have been transmitted electronically. Requested Prescriptions Signed Prescriptions Disp Refills oxyCODONE myristate (XTAMPZA ER) 13.5 mg CSpT 60 Each 0 Sig: Take 13.5 mg by mouth every 12 hours for 30 days. Authorizing Provider: RHONDA MCNEAL oxyCODONE-acetaminophen (PERCOCET) 5-325 mg tablet 90 tablet 0 Sig: Take 1 tablet by mouth three times daily as needed for pain for up to 30 days. Do not start before March 26, 2022. Authorizing Provider: RHONDA MCNEAL pregabalin (LYRICA) 100 mg capsule 90 capsule 0 Sig: Take 1 capsule by mouth three times daily for 30 days. Do not start before March 26, 2022. Authorizing Provider: RHONDA MCNEAL APRN.MANGANESE BREAKER * Telephone Encounter - Elizabeth Ray RN - 03/23/2022 7:48 AM EST Patient phones requesting refills as follows: Requested [...] Last UDS: No results found for: SUMM @FLOW([id number])@ No results found for: SUMM No results found for: SUMMAR Please review and advise. Elizabeth Ray RN documented in this encounterPremier Health [facility] Center01-11-2023 NoteHNO ID: [id number] Author: Rhonda Mcneal APRN.MANGANESE BREAKER Service: ? Author Type: Clinical Nurse Specialist Type: Progress Notes Filed: 02/15/2022 3:34 PM Note Text: SUBJECTIVE: Estela Kenney [facility] for a follow-up appointment for back pain [facility] Last seen by me on [...] Negative Fabere sign bilaterally ASSESSMENT: claim # [id number] DOI: 03/09/2008 Allowed diagnosis: S43.401A, S33.5XXA, S40.011A, [...] with the above and verbalized understanding. Rhonda Mnceal APRN.SAVANNA February 15, 2022[facility]01[facility] Instructions* Patient Instructions* Rhonda Mcneal APRN.SAVANNA - 02/15/2022 3:04 PM EST Continue Flexeril PRN Continue Xtampza and percocet These medications helps patient perform ADL, interact with family andfriends.No misuse or aberrant behaviors detected. OAARS reviewed and consistent UDS reviewed and consistent Sign Pain contract Continue lyrica 100mg TID Continue Mobic Encouraged to keep appt for injection on 02/16/22 Discussed briefly about lumbar facet dx block as precusor to RFA since had blood sugar issue this past injection Followup in 3 months in office [facility] History of Present illness Narrative* Rhonda Mcneal APRN.CNS - 02/15/2022 2:30 PM EST SUBJECTIVE: Estela Kenney [facility] for a follow-up appointment for back pain [facility] Last seen by me on 11/15/21 Plan of care form 11/15/21 included; lyrica, mobic, flexeril, xtampza, percocet, cymbalta from PCP,UDS Pain level: 4-5/10 States walking from parking [...] Straight leg raise is positive bilaterally, Negative Faberesign bilaterally ASSESSMENT: claim # [id number] DOI: 03/09/2008 Allowed diagnosis: S43.401A, S33.5XXA, S40.011A, S50.11XA, S30.0XA, S46.011A, M54.17, S43.431A, M25.811, M51.27, M75.41, M19.077, M48.061 Visit dx Lumbago-sciatica due to displacement of lumbar intervertebral disc Spinal stenosis, lumbar region, without neurogenic claudication Lumbar sprain, sequela High risk medication use (primary encounter diagnosis) PLAN: Continue Flexeril PRN Continue Xtampza and percocet These medications helps patient perform ADL, interact with family andfriends.No misuse or aberrant behaviors detected. OAARS reviewed [...] with the above and verbalized understanding. Rhonda Mcneal APRN.CNS February 15, 2022 documented in this encounterPrem[facility]12-12-2022 Miscellaneous Notes* Telephone Encounter - Rhonda Mcneal APRN.CNS - 01/16/2022 11:20 AM EST The following approved medication requests have been transmitted electronically. Requested Prescriptions Signed Prescriptions Disp Refills oxyCODONE myristate (XTAMPZA ER) 13.5 mg CSpT 60 Each 0 Sig: Take 13.5 mg by mouth every 12 hours for 30 days. Do not start before January 18, 2022. Authorizing Provider: RHONDA MCNEAL oxyCODONE-acetaminophen (PERCOCET) 5-325 mg tablet 90 tablet 0 Sig: Take 1 tablet by mouth three times daily as needed for pain for up to 30 days. Do not start before January 25, 2022. Authorizing Provider: RHONDA MCNEAL pregabalin (LYRICA) 100 mg capsule 90 capsule 0 Sig: Take 1 capsule by mouth three times daily for 30 days. Do not start before January 25, 2022. Authorizing Provider: RHONDA MCNEAL APRN.CNS * Telephone Encounter - Rita Ayala RN - 01/16/2022 11:17 AM EST Patient phones requesting refills as follows: Requested [...] advise. Rita Ayala RN documented in this encounterPrem[facility]11-14-2022 Miscellaneous Notes* Telephone Encounter - Rhonda Mcneal APRN.MANGANESE BREAKER - 12/19/2021 12:40 PM EST The following approved medication requests have been transmitted electronically. Requested Prescriptions Signed Prescriptions Disp Refills oxyCODONE myristate (XTAMPZA ER) 13.5 mg CSpT 60 Each 0 Sig: Take 13.5 mg by mouth every 12 hours for 30 days. Authorizing Provider: RHONDA MCNEAL oxyCODONE-acetaminophen (PERCOCET) 5-325 mg tablet 90 tablet 0 Sig: Take 1 tablet by mouth three times daily as needed for pain for up to 30 days. Do not start before December 26, 2021. Authorizing Provider: RHONDA MCNEAL pregabalin (LYRICA) 100 mg capsule 90 capsule 0 Sig: Take 1 capsule by mouth three times daily for 30 days. Do not start before December 26, 2021. Authorizing Provider: RHONDA MCNEAL cyclobenzaprine (FLEXERIL) 10 mg tablet 90 tablet 0 Sig: Take 1 tablet by mouth three times daily. Authorizing Provider: RHONDA MCNEAL APRN.MANGANESE BREAKER * Telephone Encounter - Angeles Nguyen RN - 12/19/2021 11:37 AM EST Patient phones requesting refills as follows: Requested [...] advise. Angeles Nguyen RN documented in this [facility]11-07-2022 Miscellaneous Notes* Telephone Encounter - Graciela Dhaliwal - 12/12/2021 3:57 PM EST I left a message to reschedule her procedure. Graciela December 12, 2021 3:58 PM documented in this [facility]11-07-2022 Miscellaneous Notes* Telephone Encounter - Graciela Dhaliwal - 12/12/2021 1:59 PM EST I spoke with Tory at [facility] regarding changing the SNRB from Right sided to the left side. She gave a verbal authorization to change the sides. She will fax that to me once it has been processed. Graciela Dhaliwal December 12, 2021 2:01 PM documented in this [facility]11-07-2022 Miscellaneous Notes* Telephone Encounter - Elizabeth Ray RN - 12/12/2021 12:55 PM EST Pt notified of the message below. Elizabeth Ray RN December 12, 2021 12:56 PM * Telephone Encounter - Lina Lam DO - 12/12/2021 12:51 PM EST NO CHANGE. SHE WILL HAVE TO ADJUST HER INSULIN AFTER THE INJECTION. TYPICALLY I ALLOT 2 WEEKS IN BETWEEN INJECTIONS FOR DIABETIC PATIENTS. * Telephone Encounter - Kristyn Edwards RN - 12/09/2021 3:32 PM EDTSummary: careline call Telephone call from pt to careline : pt states that after her last injection (right lumbar SNRB 11-03-21), her FBS went to 560 day of procedure and 390 day after procedure. She is scheduled for another steroidal nerve bloock on 12-15-21; she has been referred to an inventory accountant with scheduled appt on 01-05-22. Please advise if change in injection POC. Thank you. Kristyn Edwards RN documented in this encounterPrem[facility]10-11-2022 Miscellaneous Notes* Telephone Encounter - Graciela Dhaliwal - 11/15/2021 11:[address] Lam, I received approval for right sided SNRB L3-S1. Please build a case for that to be scheduled Dec 15 @ 1:30. Graciela Paz November 15, 2021 11:17 AM documented in this encounterPrem[facility]09-19-2022 Miscellaneous Notes* Telephone Encounter - Rhonda Mcneal APRN.CNS - 10/24/2021 4:14 PM EDT The following approved medication requests have been transmitted electronically. Requested Prescriptions Signed Prescriptions Disp Refills meloxicam (MOBIC) 7.5 mg tablet 60 tablet 0 Sig: Take 1 tablet by mouth twice daily. With food. Authorizing Provider: RHONDA MCNEAL APRN.CNS * Telephone Encounter - Angeles Nguyen RN - 10/24/2021 3:18 PM EDT Patient phones requesting refills as follows: Requested Prescriptions Pending Prescriptions Disp Refills meloxicam (MOBIC) 7.5 mg tablet 60 tablet 0 Sig: Take 1 tablet by mouth twice daily. With food. Please review and advise. Angeles Nguyen RN documented in this encounterPrem[facility]09-14-2022 Miscellaneous Notes* Telephone Encounter - Rhonda Mcneal APRN.SAVANNA - 10/19/2021 1:37 PM EDT The following approved medication requests have been transmitted electronically. Requested Prescriptions Signed Prescriptions Disp Refills cyclobenzaprine (FLEXERIL) 10 mg tablet 90 tablet 0 Sig: Take 1 tablet by mouth three times daily. Authorizing Provider: RHONDA MCNEAL pregabalin (LYRICA) 100 mg capsule 90 capsule 0 Sig: Take 1 capsule by mouth three times daily for 30 days. Do not start before October 26, 2021. Authorizing Provider: RHONDA MCNEAL oxyCODONE-acetaminophen (PERCOCET) 5-325 mg tablet 90 tablet 0 Sig: Take 1 tablet by mouth three times daily as needed for pain for up to 30 days. Do not start before October 27, 2021. Authorizing Provider: RHONDA MCNEAL oxyCODONE myristate (XTAMPZA ER) 13.5 mg CSpT 60 Each 0 Sig: Take 13.5 mg by mouth every 12 hours for 30 days. Do not start before October 20, 2021. Authorizing Provider: RHONDA MCNEAL APRN.CNS * Telephone Encounter - Rita Ayala RN - 10/19/2021 12:44 PM EDT Patient phones requesting refills as follows: Requested [...] advise. Rita Ayala RN documented in this encounterPrem[facility]08-15-2022 Miscellaneous Notes* Telephone Encounter - Rhonda Mcneal APRN.SAVANNA - 09/19/2021 4:35 PM EDT The following approved medication requests have been transmitted electronically. Requested Prescriptions Signed Prescriptions Disp Refills meloxicam (MOBIC) 7.5 mg tablet 60 tablet 0 Sig: Take 1 tablet by mouth twice daily. With food. Authorizing Provider: RHONDA MCNEAL APRN.CNS * Telephone Encounter - Angeles Nguyen RN - 09/19/2021 4:11 PM EDT Patient phones requesting refills as follows: Requested Prescriptions Pending Prescriptions Disp Refills meloxicam (MOBIC) 7.5 mg tablet 60 tablet 0 Sig: Take 1 tablet by mouth twice daily. With food. Please review and advise. Angeles Nguyen RN documented in this encounterPrem[facility]08-15-2022 Miscellaneous Notes* Telephone Encounter - Rhonda Mcneal APRN.CNS - 09/19/2021 6:47 AM EDT The following approved medication requests have been transmitted electronically. Requested Prescriptions Signed Prescriptions Disp Refills pregabalin (LYRICA) 100 mg capsule 90 capsule 0 Sig: Take 1 capsule by mouth three times daily for 30 days. Do not start before September 26, 2021. Authorizing Provider: RHONDA MCNEAL oxyCODONE-acetaminophen (PERCOCET) 5-325 mg tablet 90 tablet 0 Sig: Take 1 tablet by mouth three times daily as needed for pain for up to 30 days. Do not start before September 27, 2021. Authorizing Provider: RHONDA MCNEAL oxyCODONE myristate (XTAMPZA ER) 13.5 mg CSpT 60 Each 0 Sig: Take 13.5 mg by mouth every 12 hours for 30 days. Do not start before September 20, 2021. Authorizing Provider: RHONDA MCNEAL cyclobenzaprine (FLEXERIL) 10 mg tablet 90 tablet 0 Sig: Take 1 tablet by mouth three times daily. Authorizing Provider: RHONDA MCNEAL APRN.MANGANESE BREAKER * Telephone Encounter - Karena Guajardo RN - 09/16/2021 1:57 PM EDT Patient phones requesting refills as follows: Requested [...] advise. Karena Guajardo RN documented in this encounterPrem[facility]07-11-2022 Instructions* Patient Instructions* Rhonda Mcneal APRN.MANGANESE BREAKER - 08/15/2021 3:35 PM EDT Continue Flexeril PRN Continue Xtampza and percocet These medications helps patient perform ADL, interact with family andfriends.No misuse or aberrant behaviors detected. OAARS reviewed and consistent UDS reviewed and consistent Continue lyrica 100mg TID Encouraged to follow instructions of Dr. Pike. Continue Mobic Continue Cymbalta from PCP Submit C9 for right Lumbar L3-S1 SNRT BLK last done with good results 02/24/21 Followup in 3 months in office documented in this encounterPrem[facility]07-11-2022 History of Present illness Narrative* Rhonda Mcneal APRN.MANGANESE BREAKER - 08/15/2021 7:06 AM EDT Patient was last seen by Dr. Lam on 05/16/2021 for back pain. [facility] Last procedure: 02/24/2021 Right SNRT [...] UDS. 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 Pain level:4/10 Denies any ED visits or [...] bilaterally, Negative Fabere sign bilaterally claim # [id number] DOI: 03/09/2008 Allowed diagnosis: S43.401A, S33.5XXA, S40.011A, S50.11XA, S30.0XA, S46.011A, M54.17, S43.431A, M25.811, M51.27, M75.41, M19.077, M48.061 documented in this encounterPrem[facility]06-21-2022 Miscellaneous Notes* Telephone Encounter - Rita Ayala RN - 07/26/2021 3:32 PM EDT Patient phones requesting refills as follows: Pending [...] advise. Rita Ayala RN documented in this encounterPrem[facility]06-23-2021 History of Past illness Narrative* Problem Noted Date Resolved Date Tremors of nervous system 07/28/20202022 Gastroesophageal reflux disease 05/12/2015 05/12/2015 Dysphagia 05/12/2015 05/12/2015 Smoking 04/14/2014 05/17/2022 documented as of this encounter (statuses as of 05/18/2022) [facility] of Past illness Narrative* Problem Noted Date Diagnosed Date Resolved Date Tremors of nervous system 07/28/2020 Gastroesophageal reflux disease 05/12/2015 05/12/2015 Dysphagia 05/12/2015 05/12/2015 Smoking 04/14/2014 05/17/2022 documented as of this encounter (statuses as of 08/16/2022) [facility] of Past illness Narrative* Problem Noted Date Diagnosed Date Resolved Date Tremors of nervous system 07/28/20203 Gastroesophageal reflux disease 05/12/2015 05/12/2015 Dysphagia 05/12/2015 05/12/2015 Smoking 04/14/2014 05/17/2022 documented as of this encounter (statuses as of 08/17/2022) [address]23-2021 History of Past illness Narrative* Problem Noted Date Diagnosed Date Resolved Date Tremors of nervous system 07/28/2020 Gastroesophageal reflux disease 05/12/2015 05/12/2015 Dysphagia 05/12/2015 05/12/2015 Smoking 04/14/2014 05/17/2022 documented as of this encounter (statuses as of 08/22/2022) [address]23-2021 History of Past illness Narrative* Problem Noted Date Diagnosed Date Resolved Date Tremors of nervous system 07/28/2020 Gastroesophageal reflux disease 05/12/2015 05/12/2015 Dysphagia 05/12/2015 05/12/2015 Smoking 04/14/2014 05/17/2022 documented as of this encounter (statuses as of 08/23/2022) [address]23-2021 History of Past illness Narrative* Problem Noted Date Diagnosed Date Resolved Date Tremors of nervous system 07/28/2020 Gastroesophageal reflux disease 05/12/2015 05/12/2015 Dysphagia 05/12/2015 05/12/2015 Smoking 04/14/2014 05/17/2022 documented as of this encounter (statuses as of 08/23/2022) [address]23-2021 History of Past illness Narrative* Problem Noted Date Diagnosed Date Resolved Date Tremors of nervous system 07/28/2020 Gastroesophageal reflux disease 05/12/2015 05/12/2015 Dysphagia 05/12/2015 05/12/2015 Smoking 04/14/2014 05/17/2022 documented as of this encounter (statuses as of 09/01/2022) [address]23-2021 History of Past illness Narrative* Problem Noted Date Diagnosed Date Resolved Date Tremors of nervous system 07/28/2020 Gastroesophageal reflux disease 05/12/2015 05/12/2015 Dysphagia 05/12/2015 05/12/2015 Smoking 04/14/2014 05/17/2022 documented as of this encounter (statuses as of 09/21/2022) [address]23-2021 History of Past illness Narrative* Problem Noted Date Diagnosed Date Resolved Date Tremors of nervous system 07/28/2020 Gastroesophageal reflux disease 05/12/2015 05/12/2015 Dysphagia 05/12/2015 05/12/2015 Smoking 04/14/2014 05/17/2022 documented as of this encounter (statuses as of 10/04/2022) [address]23-2021 History of Past illness Narrative* Problem Noted Date Diagnosed Date Resolved Date Tremors of nervous system 07/28/2020 Gastroesophageal reflux disease 05/12/2015 05/12/2015 Dysphagia 05/12/2015 05/12/2015 Smoking 04/14/2014 05/17/2022 documented as of this encounter (statuses as of 10/05/2022) [address]23-2021 History of Past illness Narrative* Problem Noted Date Diagnosed Date Resolved Date Tremors of nervous system 07/28/2020 Gastroesophageal reflux disease 05/12/2015 05/12/2015 Dysphagia 05/12/2015 05/12/2015 Smoking 04/14/2014 05/17/2022 documented as of this encounter (statuses as of 10/20/2022) [facility] Narrative* Problem Noted Date Diagnosed Date Resolved Date Tremors of nervous system 07/28/2020 Gastroesophageal reflux disease 05/12/2015 05/12/2015 Dysphagia 05/12/2015 05/12/2015 Smoking 04/14/2014 05/17/2022 documented as of this encounter (statuses as of 11/11/2022) [address]23-2021 History of Past illness Narrative* Problem Noted Date Diagnosed Date Resolved Date Tremors of nervous system 07/28/2020 Gastroesophageal reflux disease 05/12/2015 05/12/2015 Dysphagia 05/12/2015 05/12/2015 Smoking 04/14/2014 05/17/2022 documented as of this encounter (statuses as of 11/11/2022) [address]23-2021 History of Past illness Narrative* Problem Noted Date Diagnosed Date Resolved Date Tremors of nervous system 07/28/2020 Gastroesophageal reflux disease 05/12/2015 05/12/2015 Dysphagia 05/12/2015 05/12/2015 Smoking 04/14/2014 05/17/2022 documented as of this encounter (statuses as of 12/10/2022) [facility] Narrative* Problem Noted Date Diagnosed Date Resolved Date Tremors of nervous system 07/28/2020 Gastroesophageal reflux disease 05/12/2015 05/12/2015 Dysphagia 05/12/2015 05/12/2015 Smoking 04/14/2014 05/17/2022 documented as of this encounter (statuses as of 12/18/2022) [facility] Narrative* Problem Noted Date Diagnosed Date Resolved Date Tremors of nervous system 07/28/2020 Gastroesophageal reflux disease 05/12/2015 05/12/2015 Dysphagia 05/12/2015 05/12/2015 Smoking 04/14/2014 05/17/2022 documented as of this encounter (statuses as of 01/15/2023) [facility] Narrative* Problem Noted Date Diagnosed Date Resolved Date Tremors of nervous system 07/28/2020 Gastroesophageal reflux disease 05/12/2015 05/12/2015 Dysphagia 05/12/2015 05/12/2015 Smoking 04/14/2014 05/17/2022 documented as of this encounter (statuses as of 05/20/2023) [facility] Narrative* Problem Noted Date Resolved Date Gastroesophageal reflux disease 05/12/2015 05/12/2015 Dysphagia 05/12/2015 05/12/2015 documented as of this encounter (statuses as of 07/27/2021) [facility] Narrative* Problem Noted Date Resolved Date Gastroesophageal reflux disease 05/12/2015 05/12/2015 Dysphagia 05/12/2015 05/12/2015 documented as of this encounter (statuses as of 08/15/2021) [facility] Narrative* Problem Noted Date Resolved Date Gastroesophageal reflux disease 05/12/2015 05/12/2015 Dysphagia 05/12/2015 05/12/2015 documented as of this encounter (statuses as of 08/15/2021) [address]06-2016 History of Past illness Narrative* Problem Noted Date Resolved Date Gastroesophageal reflux disease 05/12/2015 05/12/2015 Dysphagia 05/12/2015 05/12/2015 documented as of this encounter (statuses as of 08/21/2021) [address]06-2016 History of Past illness Narrative* Problem Noted Date Resolved Date Gastroesophageal reflux disease 05/12/2015 05/12/2015 Dysphagia 05/12/2015 05/12/2015 documented as of this encounter (statuses as of 09/19/2021) [address]06-2016 History of Past illness Narrative* Problem Noted Date Resolved Date Gastroesophageal reflux disease 05/12/2015 05/12/2015 Dysphagia 05/12/2015 05/12/2015 documented as of this encounter (statuses as of 09/19/2021) [address]06-2016 History of Past illness Narrative* Problem Noted Date Resolved Date Gastroesophageal reflux disease 05/12/2015 05/12/2015 Dysphagia 05/12/2015 05/12/2015 documented as of this encounter (statuses as of 10/19/2021) [address]06-2016 History of Past illness Narrative* Problem Noted Date Resolved Date Gastroesophageal reflux disease 05/12/2015 05/12/2015 Dysphagia 05/12/2015 05/12/2015 documented as of this encounter (statuses as of 10/24/2021) [address]06-2016 History of Past illness Narrative* Problem Noted Date Resolved Date Gastroesophageal reflux disease 05/12/2015 05/12/2015 Dysphagia 05/12/2015 05/12/2015 documented as of this encounter (statuses as of 11/03/2021) [address]06-2016 History of Past illness Narrative* Problem Noted Date Resolved Date Gastroesophageal reflux disease 05/12/2015 05/12/2015 Dysphagia 05/12/2015 05/12/2015 documented as of this encounter (statuses as of 11/15/2021) [address]06-2016 History of Past illness Narrative* Problem Noted Date Resolved Date Gastroesophageal reflux disease 05/12/2015 05/12/2015 Dysphagia 05/12/2015 05/12/2015 documented as of this encounter (statuses as of 12/12/2021) [address]06-2016 History of Past illness Narrative* Problem Noted Date Resolved Date Gastroesophageal reflux disease 05/12/2015 05/12/2015 Dysphagia 05/12/2015 05/12/2015 documented as of this encounter (statuses as of 12/19/2021) [address]06-2016 History of Past illness Narrative* Problem Noted Date Resolved Date Gastroesophageal reflux disease 05/12/2015 05/12/2015 Dysphagia 05/12/2015 05/12/2015 documented as of this encounter (statuses as of 01/16/2022) [address]06-2016 History of Past illness Narrative* Problem Noted Date Resolved Date Gastroesophageal reflux disease 05/12/2015 05/12/2015 Dysphagia 05/12/2015 05/12/2015 documented as of this encounter (statuses as of 02/15/2022) [address]06-2016 History of Past illness Narrative* Problem Noted Date Resolved Date Gastroesophageal reflux disease 05/12/2015 05/12/2015 Dysphagia 05/12/2015 05/12/2015 documented as of this encounter (statuses as of 03/23/2022) [address]06-2016 History of Past illness Narrative* Problem Noted Date Resolved Date Gastroesophageal reflux disease 05/12/2015 05/12/2015 Dysphagia 05/12/2015 05/12/2015 documented as of this encounter (statuses as of 04/23/2022) [facility] [place] [facility]* Diagnosis Onset Date Resolution Status Acute dehydration resolved [facility] Work Phone: Evaluation note* Diagnosis Chronic bilateral low back pain with bilateral sciatica- Primary documented in this encounter [facility] [place] [facility]* Diagnosis Onset Date Resolution Status Hypercalcemia acute Hyperparathyroidism acute Osteoporosis acute Type 2 diabetes with stage 3 chronic kidney disease GFR 30-[address] [facility] Work Phone: Evaluation note* Diagnosis Sprain of right shoulder, unspecified [...] without neurogenic claudication [facility] [place] [facility]* Diagnosis Chronic bilateral low back pain with bilateral sciatica Spinal stenosis, lumbar region, without neurogenic claudication documented [facility] this [facility] [place] [facility]* Diagnosis Chronic bilateral low back pain with bilateral sciatica Spinal stenosis, lumbar region, without neurogenic claudication Lumbar radiculopathy Thoracic or lumbosacral neuritis or radiculitis, unspecified documented [facility] this [facility] [place] [facility]* Diagnosis Radiculopathy, lumbar region- Primary Thoracic or lumbosacral neuritis or radiculitis, unspecified Radiculopathy, lumbar region Thoracic or lumbosacral neuritis or radiculitis, unspecified documented [facility] this [facility] [place] [facility]* Diagnosis Spinal stenosis, lumbar region, without neurogenic claudication Chronic bilateral low back pain with bilateral sciatica Radiculopathy, lumbar region Thoracic or lumbosacral neuritis or radiculitis, unspecified documented in this encounter [facility] [place] [facility]* Diagnosis Spinal stenosis, lumbar region, without neurogenic claudication Chronic bilateral low back pain with bilateral sciatica Radiculopathy, lumbar region Thoracic or lumbosacral neuritis or radiculitis, unspecified documented in this encounter [facility] note* Diagnosis Onset Date Resolution Status Hypercalcemia acute Osteoporosis acute Vitamin D deficiency acute Obesity (BMI 30.0-34.9) chronic specialist natividad Type 2 diabetes with stage 3 chronic kidney disease GFR 30-59 [facility] Work Phone: Evaluation note* Diagnosis High risk medication use- Primary [...] with bilateral sciatica documented [facility] this encounter [facility]* Diagnosis Spinal stenosis, lumbar region, without neurogenic claudication Chronic bilateral low back pain with bilateral sciatica documented [facility] this encounter [facility]* Diagnosis Onset Date Resolution Status Hypercalcemia acute Osteoporosis acute Vitamin D deficiency acute Type 2 diabetes with stage 3 chronic kidney disease GFR 30-59 [facility] Work Phone: Evaluation note* Diagnosis Spinal stenosis, lumbar region, without neurogenic claudication Chronic bilateral low back pain with bilateral sciatica 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 Lumbar sprain, sequela High risk medication use Encounter for long-term (current) use of other medications [facility] Onset Date Resolution Status Hypercalcemia acute Osteoporosis acute Vitamin D deficiency acute Type 2 diabetes with stage 3 chronic kidney disease GFR 30-59 chronic Hyperparathyroidism acute Osteoporosis acute Essential hypertension chron ic Obesity (BMI 30.0-34.9) chronic specialist natividad Type 2 diabetes with stage 3 chronic kidney disease GFR 30-59 [facility] Work Phone: Evaluation note* Diagnosis Onset Date Resolution Status Hyperparathyroidism acute Osteoporosis acute Essential hypertension chron ic Obesity (BMI 30.0-34.9) chronic specialist natividad Type 2 diabetes with stage 3 chronic kidney disease GFR 30-59 [facility] Work Phone: Evaluation note* Diagnosis Lumbar sprain, sequela- Primary Spinal stenosis, lumbar region, without neurogenic claudication Chronic bilateral low back pain with bilateral sciatica High risk medication use Encounter for long-term (current) use of other medications [facility] Diagnosis Spinal stenosis, lumbar region, without neurogenic claudication Chronic bilateral low back pain with bilateral sciatica [facility] Diagnosis Spinal stenosis, lumbar region, without neurogenic claudication Chronic bilateral low back pain with bilateral sciatica [facility] Diagnosis Lumbar sprain, sequela- Primary Strain of tendon of right rotator cuff, sequela Spinal stenosis, lumbar region, without neurogenic claudication Chronic bilateral low back pain with bilateral sciatica Type 2 diabetes mellitus without complication, with long-term current use of insulin (HCC) [facility] [place] [facility]* Diagnosis Spinal stenosis, lumbar region, without neurogenic claudication documented in this encounter [facility] note* Diagnosis Spinal stenosis, lumbar region, without neurogenic claudication documented in this encounter [facility] note* Diagnosis Onset Date Resolution Status Essential hypertension chron ic Hypercalcemia chronic Obesity (BMI 30.0-34.9) chronic specialist natividad Osteoporosis chronic Type 2 diabetes with stage 3 chronic kidney disease GFR 30-59 chronic Essential hypertension chron ic Obesity (BMI 30.0-34.9) chronic specialist natividad Type 2 diabetes with stage 3 chronic kidney disease GFR 30-59 [facility] Work Phone: Evaluation note* Diagnosis Dysuria- Primary Chest pain, unspecified type documented in this encounter [facility] note* Diagnosis Onset Date Resolution Status Essential hypertension chron ic Obesity (BMI 30.0-34.9) chronic specialist natividad Type 2 diabetes with stage 3 chronic kidney disease GFR 30-59 chronic Essential hypertension chron ic Obesity (BMI 30.0-34.9) chronic specialist natividad Type 2 diabetes with stage 3 chronic kidney disease GFR 30-59 [facility] Work Phone: Evaluation note* Diagnosis Abdominal pain, unspecified abdominal location- Primary [facility] Work Phone: Reason for referral (narrative)No reason for referral information [facility]St[facility] Work Phone: Summary Purpose Family History No Family History Records Found Relationship Condition Age at Onset Recorded Date/T sofia mother Arthritis Unknown Diabetes mellitus Unknown Cardiac disease Unknown Hypertension Unknown High blood cholesterol Unknown sister Asthma Unknown Arthritis Unknown grandmother Malignant neoplasm of colon Unknown aunt Lupus Unknown daughter Seizure Unknown sister Diabetes mellitus Unknown Advance Directives No Advanced Directives Records Found Advance Directive Response Recorded Date/ Time Living Will No January 31 10:26pm Power of Healthcare Administration Intern No January 31, 2021 10:26pm Documents on File Type Date Recorded 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 Advance Directive(s) 05/12/2015 11:59 AM Advance Directive(s) 04/30/2015 10:47 AM Advance Directive Response Recorded Date/ Time Living Will No January 31, 2 021 9:26pm Power of Healthcare Administration Intern No January 31, 2021 9:26pm Advance Directive Response Recorded Date/ Time Living Will No February 16 2:28pm Power of Healthcare Administration Intern No February 16, 2023 2:28pm Advance Directive Response Recorded Date/ Time Living Will No May 20, 2023 1:35pm Power of Healthcare Administration Intern No May 19 1:35pm Advance Directive Response Recorded Date/ Time Living Will No July 11, 2023 1 1:55am Power of Healthcare Administration Intern No July 11, 2023 11:55am Living Will No August 30, 2023 1:40pm Power of Healthcare Administration Intern No August 29 1:40pm Advance Directive Response Recorded Date/ Time Living Will No July 11, 2023 1 1:55am Do you have a Healthcare Power of Healthcare Administration Intern? 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, NPP MAILED Reason for Visit Hypercalcemia Hyperparathyroidism Osteoporosis Type 2 diabetes with stage 3 chronic kidney disease GFR 30-59 Chief Complaint Diabetes Mellitus Ty pe 2 E ORDERS PROLIA Reason for Visit Hypercalcemia Osteoporosis Vitamin D deficiency Obesity (BMI 30.0-34.9) Type 2 diabetes with stage 3 chronic kidney disease GFR 30-59 Chief Complaint PROLIA 3 M FU SCREENING Reason for Visit Hypercalcemia Osteoporosis Vitamin D deficiency Type 2 diabetes with stage 3 chronic kidney disease GFR 30-59 Chief Complaint 3 M FU SCREENING Reason for Visit Hypercalcemia Osteoporosis Vitamin D deficiency Type 2 diabetes with stage 3 chronic kidney disease GFR 30-59 Chief Complaint 3 M FU SCREENING E ORDER 4 M FU INT LABS Reason for Visit Hypercalcemia Osteoporosis Vitamin D deficiency Type 2 diabetes with stage 3 chronic kidney disease GFR 30-59 Hyperparathyroidism Osteoporosis Essential hypertension Obesity (BMI 30.0-34.9) Type 2 diabetes with stage 3 chronic kidney disease GFR 30-59 Chief Complaint SCREENING E ORDER 4 M FU INT LABS Reason for Visit Hyperparathyroidism Osteoporosis Essential hypertension Obesity (BMI 30.0-34.9) Type 2 diabetes with stage 3 chronic kidney disease GFR 30-59 Chief Complaint SCREENING E ORDER 4 M FU INT LABS PROLIA Reason for Visit Hyperparathyroidism Osteoporosis Essential hypertension Obesity (BMI 30.0-34.9) Type 2 diabetes with stage 3 chronic kidney disease GFR 30-59 Chief Complaint 4 M FU 2 M FU PROLIA Reason for Visit Essential hypertensi on Hypercalcemia Obesity (BMI 30.0-34.9) Osteoporosis Type 2 diabetes with stage 3 chronic kidney disease GFR 30-59 Essential hypertension Obesity (BMI 30.0-34.9) Type 2 diabetes with stage 3 chronic kidney disease GFR 30-59 Chief Complaint 4 M FU 2 M FU PROLIA HEAD INJURY Reason for Visit Essential hypertensi on Hypercalcemia Obesity (BMI 30.0-34.9) Osteoporosis Type 2 diabetes with stage 3 chronic kidney disease GFR 30-59 Essential hypertension Obesity (BMI 30.0-34.9) Type 2 diabetes with stage 3 chronic kidney disease GFR 30-59 Chief Complaint 2 M FU PROLIA HEAD INJURY DEGENARATIVE DISC DISEASE 3 M FU CHEST PAIN Reason for Visit Essential hypertensi on Obesity (BMI 30.0-34.9) Type 2 diabetes with stage 3 chronic kidney disease GFR 30-59 Essential hypertension Obesity (BMI 30.0-34.9) Type 2 diabetes with stage 3 chronic kidney disease GFR 30-59 Chief Complaint Admit Date 8 M FU January 25, 2024 1:03pm CHRONIC KIDNEY DISEASE March 28 1:26pm Prolia B&B April 01, 2024 2:18pm 3 M F/U April 10, 2024 9:15 am Reason for Visit Admit Date Diabetes mellitus type 2 in obese Decemb er 2023 1:03pm Essential hypertension January 24 1:03pm Hypercalcemia January 25, 2024 1:03pm Obesity (BMI 30.0-34.9) January 24, 024 1:03pm Osteoporosis January 25, 2024 1:03pm Type 2 diabetes with stage 3 chronic kidney disease GFR 30-59 January 25, 2024 1:03pm Osteoporosis April 01, 2024 2:18pm Neuroma of hand April 10, 2024 9:15 am Chief Complaint Admit Date CHRONIC KIDNEY DISEASE March 28 1:26pm Prolia B&B April 01, 2024 2:18pm 3 M F/U April 10, 2024 9:15 am Unspecified abdominal pain May 22, 2 025 2:15pm Reason for Visit Admit Date Osteoporosis April 01, 2024 2:18pm Neuroma of hand April 10, 2024 9:15 am Chief Complaint Admit Date 3 M F/U April 10, 2024 9:15 am Unspecified abdominal pain May 22 025 2:15pm Reason for Visit Admit Date Neuroma of hand April 10, 2024 9:15 am Additional Source Comments INFORMATION SOURCE (unrecogn ized section and content) DATE CREATED AUTHOR 10/04/2018 [facility] ([place]) DATE CREATED AUTHOR AUTHOR'S ORGANIZ ATION 10/08/2020 [facility] DATE CREATED AUTHOR AUTHOR'S ORGANIZ ATION 05/17/2021 [facility] [place] DATE CREATED AUTHOR AUTHOR'S ORGANIZ ATION 01/20/2023 [facility] DATE CREATED AUTHOR AUTHOR'S ORGANIZ ATION 05/13/2024 [facility] DATE CREATED AUTHOR AUTHOR'S ORGANIZ ATION 08/04/[address] [facility] Goals (unrecognized section and content) Goals may be documented in a n alternate sectionGoals may be documented in an alternate sectionGoals may be documented in an alternate sectionGoals may be documented in an alternate sectionGoals may be documented in an alternate sectionGoals may be documented in an alternate sectionGoals may be documented in an alternate sectionGoals may be documented in an alternate sectionGoals may be documented in an alternate sectionGoals may be documented in an alternate sectionGoals may be documented in an alternate sectionGoals may be documented in an alternate sectionGoals may be documented in an alternate sectionGoals may be documented in an alternate sectionGoals may be documented in an alternate sectionGoals may be documented in an alternate sectionGoals may be documented in an alternate sectionGoals may be documented in an alternate section Source Comments (unrecognize d section and content) In the event this informatio n is protected by the Federal Confidentiality of Alcohol and Drug Abuse Patient Records regulations: The Federal rules restrict any use of the information to criminally investigate or prosecute any alcohol or drug abuse patient.[facility] Center[facility] the event this information is protected by the Federal Confidentiality of Alcohol and Drug Abuse Patient Records regulations: The Federal rules restrict any use of the information to criminally investigate or prosecute any alcohol or drug abuse patient.[facility] Center[facility] the event this information is protected by the Federal Confidentiality of Alcohol and Drug Abuse Patient Records regulations: The Federal rules restrict any use of the information to criminally investigate or prosecute any alcohol or drug abuse patient.[facility] CenterIn the event this information is protected by the Federal Confidentiality of Alcohol and Drug Abuse Patient Records regulations: The Federal rules restrict any use of the information to criminally investigate or prosecute any alcohol or drug abuse patient.[facility] CenterIn the event this information is protected by the Federal Confidentiality of Alcohol and Drug Abuse Patient Records regulations: The Federal rules restrict any use of the information to criminally investigate or prosecute any alcohol or drug abuse patient.[facility] CenterIn the event this information is protected by the Federal Confidentiality of Alcohol and Drug Abuse Patient Records regulations: The Federal rules restrict any use of the information to criminally investigate or prosecute any alcohol or drug abuse patient.[facility] CenterIn the event this information is protected by the Federal Confidentiality of Alcohol and Drug Abuse Patient Records regulations: The Federal rules restrict any use of the information to criminally investigate or prosecute any alcohol or drug abuse patient.[facility] CenterIn the event this information is protected by the Federal Confidentiality of Alcohol and Drug Abuse Patient Records regulations: The Federal rules restrict any use of the information to criminally investigate or prosecute any alcohol or drug abuse patient.[facility] CenterIn the event this information is protected by the Federal Confidentiality of Alcohol and Drug Abuse Patient Records regulations: The Federal rules restrict any use of the information to criminally investigate or prosecute any alcohol or drug abuse patient.[facility] CenterIn the event this information is protected by the Federal Confidentiality of Alcohol and Drug Abuse Patient Records regulations: The Federal rules restrict any use of the information to criminally investigate or prosecute any alcohol or drug abuse patient.[facility] CenterIn the event this information is protected by the Federal Confidentiality of Alcohol and Drug Abuse Patient Records regulations: The Federal rules restrict any use of the information to criminally investigate or prosecute any alcohol or drug abuse patient.[facility] CenterIn the event this information is protected by the Federal Confidentiality of Alcohol and Drug Abuse Patient Records regulations: The Federal rules restrict any use of the information to criminally investigate or prosecute any alcohol or drug abuse patient.[facility] CenterIn the event this information is protected by the Federal Confidentiality of Alcohol and Drug Abuse Patient Records regulations: The Federal rules restrict any use of the information to criminally investigate or prosecute any alcohol or drug abuse patient.[facility] CenterIn the event this information is protected by the Federal Confidentiality of Alcohol and Drug Abuse Patient Records regulations: The Federal rules restrict any use of the information to criminally investigate or prosecute any alcohol or drug abuse patient.[facility] CenterIn the event this information is protected by the Federal Confidentiality of Alcohol and Drug Abuse Patient Records regulations: The Federal rules restrict any use of the information to criminally investigate or prosecute any alcohol or drug abuse patient.[facility] CenterIn the event this information is protected by the Federal Confidentiality of Alcohol and Drug Abuse Patient Records regulations: The Federal rules restrict any use of the information to criminally investigate or prosecute any alcohol or drug abuse patient.[facility]In the event this information is protected by the Federal Confidentiality of Alcohol and Drug Abuse Patient Records regulations: The Federal rules restrict any use of the information to criminally investigate or prosecute any alcohol or drug abuse patient.[facility] CenterIn the event this information is protected by the Federal Confidentiality of Alcohol and Drug Abuse Patient Records regulations: The Federal rules restrict any use of the information to criminally investigate or prosecute any alcohol or drug abuse patient.[facility] CenterIn the event this information is protected by the Federal Confidentiality of Alcohol and Drug Abuse Patient Records regulations: The Federal rules restrict any use of the information to criminally investigate or prosecute any alcohol or drug abuse patient.[facility] CenterIn the event this information is protected by the Federal Confidentiality of Alcohol and Drug Abuse Patient Records regulations: The Federal rules restrict any use of the information to criminally investigate or prosecute any alcohol or drug abuse patient.[facility] CenterIn the event this information is protected by the Federal Confidentiality of Alcohol and Drug Abuse Patient Records regulations: The Federal rules restrict any use of the information to criminally investigate or prosecute any alcohol or drug abuse patient.[facility] CenterIn the event this information is protected by the Federal Confidentiality of Alcohol and Drug Abuse Patient Records regulations: The Federal rules restrict any use of the information to criminally investigate or prosecute any alcohol or drug abuse patient.[facility] CenterIn the event this information is protected by the Federal Confidentiality of Alcohol and Drug Abuse Patient Records regulations: The Federal rules restrict any use of the information to criminally investigate or prosecute any alcohol or drug abuse patient.[facility] CenterIn the event this information is protected by the Federal Confidentiality of Alcohol and Drug Abuse Patient Records regulations: The Federal rules restrict any use of the information to criminally investigate or prosecute any alcohol or drug abuse patient.[facility] CenterIn the event this information is protected by the Federal Confidentiality of Alcohol and Drug Abuse Patient Records regulations: The Federal rules restrict any use of the information to criminally investigate or prosecute any alcohol or drug abuse patient.[facility] CenterIn the event this information is protected by the Federal Confidentiality of Alcohol and Drug Abuse Patient Records regulations: The Federal rules restrict any use of the information to criminally investigate or prosecute any alcohol or drug abuse patient.[facility] CenterIn the event this information is protected by the Federal Confidentiality of Alcohol and Drug Abuse Patient Records regulations: The Federal rules restrict any use of the information to criminally investigate or prosecute any alcohol or drug abuse patient.[facility] CenterIn the event this information is protected by the Federal Confidentiality of Alcohol and Drug Abuse Patient Records regulations: The Federal rules restrict any use of the information to criminally investigate or prosecute any alcohol or drug abuse patient.[facility] CenterIn the event this information is protected by the Federal Confidentiality of Alcohol and Drug Abuse Patient Records regulations: The Federal rules restrict any use of the information to criminally investigate or prosecute any alcohol or drug abuse patient.[facility] CenterIn the event this information is protected by the Federal Confidentiality of Alcohol and Drug Abuse Patient Records regulations: The Federal rules restrict any use of the information to criminally investigate or prosecute any alcohol or drug abuse patient.[facility] CenterIn the event this information is protected by the Federal Confidentiality of Alcohol and Drug Abuse Patient Records regulations: The Federal rules restrict any use of the information to criminally investigate or prosecute any alcohol or drug abuse patient.[facility] CenterIn the event this information is protected by the Federal Confidentiality of Alcohol and Drug Abuse Patient Records regulations: The Federal rules restrict any use of the information to criminally investigate or prosecute any alcohol or drug abuse patient.[facility] CenterIn the event this information is protected by the Federal Confidentiality of Alcohol and Drug Abuse Patient Records regulations: The Federal rules restrict any use of the information to criminally investigate or prosecute any alcohol or drug abuse patient.[facility] CenterIn the event this information is protected by the Federal Confidentiality of Alcohol and Drug Abuse Patient Records regulations: The Federal rules restrict any use of the information to criminally investigate or prosecute any alcohol or drug abuse patient.[facility] CenterIn the event this information is protected by the Federal Confidentiality of Alcohol and Drug Abuse Patient Records regulations: The Federal rules restrict any use of the information to criminally investigate or prosecute any alcohol or drug abuse patient.[facility] CenterIn the event this information is protected by the Federal Confidentiality of Alcohol and Drug Abuse Patient Records regulations: The Federal rules restrict any use of the information to criminally investigate or prosecute any alcohol or drug abuse patient.[facility] CenterIn the event this information is protected by the Federal Confidentiality of Alcohol and Drug Abuse Patient Records regulations: The Federal rules restrict any use of the information to criminally investigate or prosecute any alcohol or drug abuse patient.[facility] Reason for Visit (unrecogniz ed section and content) Reason Comments Back Pain Specialty Diagnoses / Procedures Referred By Conteliu t Referred To Contact PAIN MANAGEMENT Diagnoses Unspecified sprain of right shoulder joint, initial encounter S43.401A, S33.5XXA, S40.011A, S50.11XA, S30.0XA, S46.011A, M54.17, S43.431A, M25.811, M51.27, M75.41, M19.077, M48.061 Procedures EST PATIENT VISIT LEVEL 1 Rhonda Mcneal APRN.[employer] [address] [place] [address] [place] [address] Referral ID Status Reason Start Date Expiration Date Visits Re quested Visits Authorized [id number] Closed 05/17/2022 08/15/2022 1 1 Specialty Diagnoses / Procedures Referred By Contac t Referred To Contact Internal Medicine / PAIN MANAGEMENT Diagnoses 3 Month Follow Up Procedures REFERRAL TO [facility]ANCIAL [facility]SEL[facility] EST PATIENT Self Rhonda Mcneal APRN.[employer] [address] [place] [address] Referral ID Status Reason Start Date Expiration Date V isits Requested Visits Authorized [id number] Closed Financial Clearance Not Required 02/15/2022 05/14/2022 [...] 04/21/2022 Specialty Diagnoses / Procedures Referred By Scarlett moses Referred To Contact Internal Medicine / PAIN MANAGEMENT Diagnoses 3 month follow up Procedures EST PATIENT Rhonda Mcneal, GOAT FARMER.[facility] [address] [place] [address] Rhonda Mcneal APRN.[facility] [address] [place] [address] Referral ID Status Reason Start Date Expiration Date Visits Requested Visits Authorized [id number] Pending Review Patient Cleared - Admin/Chair man/Directo r advise to proceed 05/17/2022 08/15/2022 1 1 Reason Comments med pa Reason Comments xtampza approval Reason Comments C-9 Status Reason Onset Date Comments Refill Request 09/20/2022 Reason Onset Date Comments Refill Request 10/18/2022 Specialty Diagnoses / Procedures Referred By Scarlett t Referred To Contact PAIN MANAGEMENT Diagnoses Unspecified sprain of right shoulder joint, initial encounter S43.401A, S33.5XXA, S40.011A, S50.11XA, S30.0XA, S46.011A, M54.17, S43.431A, M25.811, M51.27, M75.41, M19.077, M48.061 Procedures REFERRAL TO [facility] FINANCIAL COUNSEL[facility] UDS [id number], [id number], [id number], [id number] Rhonda Mcneal APRN.[employer] [address] [place] [address] [facility] [address] [place] [address] Referral ID Status Reason Start Date Expiration Date Visits Re quested Visits Authorized [id number] Closed 08/16/2022 11/14/2022 1 1 Reason Comments Radiology US Reason Onset Date Comments Refill Request 12/16/2022 Reason Onset Date Comments Refill Request 01/14/2023 Reason Comments Urinary Problem Possible uti, burnin g, frequency, incontinence x 5 daysCough, chest pain/burning, sob x 1 month Reason Comments Constipation nausea, stomach issu es x 1 month Care Teams (unrecognized sec tion and content) E Business Manager Relationship Specialty Start Date End Date Simran Elaine CNP [address] [place] [address] PCP - General Internal Medicine 03/28/21 E Business Manager Relationship Specialty Start Date End Date Simran Elaine CNP [address] [place] [address] PCP - General Internal Medicine 03/28/21 E Business Manager Relationship Specialty Start Date End Date Simran Elaine CNP [address] [place] [address] PCP - General Internal Medicine 03/28/21 E Business Manager Relationship Specialty Start Date End Date Simran Elaine CNP [address] [place] [address] PCP - General Internal Medicine 03/28/21 E Business Manager Relationship Specialty Start Date End Date Simran Elaine CNP [address] [place] [address] PCP - General Internal Medicine 03/28/21 E Business Manager Relationship Specialty Start Date End Date Simran Elaine, MEDICAL RECORD ASSISTANT [address] [facility] [address] PCP - General Internal Medicine 03/28/21 E Business Manager Relationship Specialty Start Date End Date Simran Elaine, MEDICAL RECORD ASSISTANT [address] [facility] [address] PCP - General Internal Medicine 03/28/21 E Business Manager Relationship Specialty Start Date End Date Simran Elaine, MEDICAL RECORD ASSISTANT [address] [facility] [place] [address] PCP - General Internal Medicine 03/28/21 E Business Manager Relationship Specialty Start Date End Date Simran Elaine, DUNIA [address] [facility] [place] [address] PCP - General Internal Medicine 03/28/21 E Business Manager Relationship Specialty Start Date End Date Angeles Pantoja NP [address] [facility] [place] [address] PCP - General Family Medicine 12/02/21 E Business Manager Relationship Specialty Start Date End Date Angeles Pantoja NP [address] [facility] [place] [address] PCP - General Family Medicine 12/02/21 E Business Manager Relationship Specialty Start Date End Date Angeles Pantoja NP [address] [facility] [place] [address] PCP - General Family Medicine 12/02/21 E Business Manager Relationship Specialty Start Date End Date Angeles Pantoja NP [address] [facility] [place] [address] PCP - General Family Medicine 12/02/21 E Business Manager Relationship Specialty Start Date End Date Angeles Pnatoja NP [address] [facility] [place] [address] PCP - General Family Medicine 12/02/21 E Business Manager Relationship Specialty Start Date End Date Angeles Pantoja NP [address] [place] [address] PCP - General Family Medicine 12/02/21 E Business Manager Relationship Specialty Start Date End Date Angeles Pantoja NP [address] [place] [address] PCP - General Family Medicine 12/02/21 Team Status: Active Member Role Status Dates Darlene Plascencia BLOOD BANK LABORATORY TECHNICIAN, BLOOD BANK LABORATORY TECHNICIAN-C Family Provider Active [facility] Primary Care Provider A ctive Team Status: Inactive Member Role Status Dates [facility] Primary Care Provider, Referring Provider Active Dr. Chino Peace MD Attending Provider Active Team Status: Inactive Member Role Status Dates [facility] Primary Care Provider A ctive Dr. Chino Peace MD Attending Provider, Referring Provi sandy Active Team Status: Inactive Member Role Status Dates [facility] Primary Care Provider A ctive Dr. Chino Peace MD Attending Provider Active E Business Manager Relationship Specialty Start Date End Date Anegles Pantoja NP [address] [place] [address] PCP - General Family Medicine 12/02/21 Team Status: Inactive Member Role Status [facility] Primary C are Provider, Attending Provider, Referring Provider Active Angeles Pantoja BLOOD BANK LABORATORY TECHNICIAN, BLOOD BANK LABORATORY TECHNICIAN-C Other Provider Active Team Status: Active Member Role Status [facility] Primary Care Provider A ctive Dr. Chino Peace MD Attending Provider Active E Business Manager Relationship Specialty Start Date End Date Angeles Pantoja NP [address] [place] [address] PCP - General Family Medicine 12/02/21 E Business Manager Relationship Specialty Start Date End Date Angeles Pantoja NP [address] [place] [address] PCP - General Family Medicine 12/02/21 E Business Manager Relationship Specialty Start Date End Date Angeles Pantoja NP [address] [place] [address] PCP - General Family Medicine 12/02/21 E Business Manager Relationship Specialty Start Date End Date Angeles Pantoja NP PCP - General Family Medicine 12/02/21 E Business Manager Relationship Specialty Start Date End Date Angeles Pantoja NP PCP - General Family Medicine 12/02/21 E Business Manager Relationship Specialty Start Date End Date Angeles Pantoja NP PCP - General Family Medicine 12/02/21 E Business Manager Relationship Specialty Start Date End Date Angeles Pantoja NP PCP - General Family Medicine 12/02/21 E Business Manager Relationship Specialty Start Date End Date Angeles Pantoja NP PCP - General Family Medicine 12/02/21 E Business Manager Relationship Specialty Start Date End Date Angeles Pantoja NP PCP - General Family Medicine 12/02/21 E Business Manager Relationship Specialty Start Date End Date Angeles Pantoja NP PCP - General Family Medicine 12/02/21 E Business Manager Relationship Specialty Start Date End Date Angeles Pantoja NP PCP - General Family Medicine 12/02/21 E Business Manager Relationship Specialty Start Date End Date Angeles Pantoja NP PCP - General Family Medicine 12/02/21 Team Status: Active Member Role Status Dates [facility] Primary Care Provider A ctive Angeles Pantoja BLOOD BANK LABORATORY TECHNICIAN, BLOOD BANK LABORATORY TECHNICIAN-C Attending Provider, Referrin g Provider Active Team Status: Inactive Member Role Status Dates [facility] Primary Care Provider A ctive Angeles Pantoja BLOOD BANK LABORATORY TECHNICIAN, BLOOD BANK LABORATORY TECHNICIAN-C Attending Provider, Referrin g Provider Active Team Status: Inactive Member Role Status Dates [facility] Primary Care Provider A ctive Dr. Dakotah Gold MD Attending Provider, Referring Provider Active Team Status: Inactive Member Role Status Dates [facility] Primary Care Provider A ctive Dr. Stef Cagle , Emergency Provider Active E Business Manager Relationship Specialty Start Date End Date Angeles Pantoja NP PCP - General Family Medicine 12/02/21 Team Status: Inactive Member Role Status Dates [facility] Primary Care Provider A ctive Dr. Stef Cagle DO Attending Provider, Emergency P yulissa Active Team Status: Inactive Member Role Status Dates [facility] Primary Care Provider A ctive NP. Rhonda Mcneal Attending Provider, Referring Provid er Active Team Status: Inactive Member Role Status Dates [facility] Primary Care Provider A ctive Dr. Pedro Pablo Barrientos DO Emergency Provider Active Team Status: Active Member Role Status Dates Angeles Pantoja VSC, BLOOD BANK LABORATORY TECHNICIAN-C Primary Care Provider Activ e Team Status: Inactive Member Role Status Dates Angeles Pantoja VSC, BLOOD BANK LABORATORY TECHNICIAN-C Primary Care Provider Activ e Start: January 10, 2024 End: January 10, 2024 Angeles Pantoja VSC, BLOOD BANK LABORATORY TECHNICIAN-C Referring Provider Active Start: January 10, 2024 End: January 10, 2024 Dr. Josh Mijares MD Attending Provider Active Start: January 10, 2024 End: January 10, 2024 Team Status: Inactive Member Role Status Dates Angeles Pantoja VSC, BLOOD BANK LABORATORY TECHNICIAN-C Primary Care Provider Activ e Start: January 25, 2024 End: January 25, 2024 Angeles Pantoja VSC, BLOOD BANK LABORATORY TECHNICIAN-C Referring Provider Active Start: January 25, 2024 End: January 25, 2024 Dr. Chino Peace MD Attending Provider Active Sta rt: January 25, 2024 End: January 25, 2024 Team Status: Inactive Member Role Status Dates Angelesfarideh MCKEON, BLOOD BANK LABORATORY TECHNICIAN-C Primary Care Provider Activ e Start: March 28, 2024 End: March 28, 2024 Dr. Constance Reyes MD Attending Provider Active Start: March 28, 2024 End: March 28, 2024 Dr. Chino Peace MD Referring Provider Active Sta rt: March 28, 2024 End: March 28, 2024 Team Status: Inactive Member Role Status Dates Angelesfarideh Pantoja VSC, BLOOD BANK LABORATORY TECHNICIAN-C Primary Care Provider Activ e Start: April 01, 2024 End: April 01, 2024 Angeles MCKEON, BLOOD BANK LABORATORY TECHNICIAN-C Referring Provider Active Start: April 01, 2024 End: April 01, 2024 Dr. Chino Peace MD Attending Provider Active Sta rt: April 01, 2024 End: April 01, 2024 Team Status: Inactive Member Role Status Dates Angelesfarideh MCKEON, BLOOD BANK LABORATORY TECHNICIAN-C Primary Care Provider Activ e Start: April 01, 2024 End: April 01, 2024 Dr. Constance Reyes MD Attending Provider Active Start: April 01, 2024 End: April 01, 2024 Dr. Constance Reyse MD Referring Provider Active Start: April 01, 2024 End: April 01, 2024 Team Status: Inactive Member Role Status Dates Angeles MELENDEZJack, BLOOD BANK LABORATORY TECHNICIAN-C Primary Care Provider Activ e Start: April 10, 2024 End: April 10, 2024 Angeles Kit ALJack, BLOOD BANK LABORATORY TECHNICIAN-C Referring Provider Active Start: April 10, 2024 End: April 10, 2024 Dr. Josh Mijares MD Attending Provider Active Start: April 10, 2024 End: April 10, 2024 E Business Manager Relationship Specialty Start Date End Date Angeles PantojaMIKHAIL PCP - General Family Medicine 12/02/21 Team Status: Inactive Member Role Status Dates Angeles Kit MELENDEZC, BLOOD BANK LABORATORY TECHNICIAN-C Primary Care Provider Activ e Start: April 10, 2024 End: April 10, 2024 Dr. Josh Mijares MD Attending Provider Active Start: April 10, 2024 End: April 10, 2024 Dr. Josh Mijares MD Referring Provider Active Start: April 10, 2024 End: April 10, 2024 Team Status: Inactive Member Role Status Dates Angeles Pantoja VSC, BLOOD BANK LABORATORY TECHNICIAN-C Primary Care Provider Activ e Start: May 14, 2024 End: May 14, 2024 Angeles Pantoja VSC, BLOOD BANK LABORATORY TECHNICIAN-C Attending Provider Active Start: May 14, 2024 End: May 14, 2024 Team Status: Inactive Member Role Status Dates Angeles Pantoja VSC, BLOOD BANK LABORATORY TECHNICIAN-C Primary Care Provider Activ e Start: May 22, 2024 End: May 22, 2024 Zebulucyn Beam VSC, BLOOD BANK LABORATORY TECHNICIAN-C Attending Provider Active Start: May 22, 2024 End: May 22, 2024 Zebulun Beam VSC, BLOOD BANK LABORATORY TECHNICIAN-C Referring Provider Active Start: May 22, 2024 End: May 22, 2024 Team Status: Active Member Role/Relationship Status Dates Angeles Kit VSC, BLOOD BANK LABORATORY TECHNICIAN-C Primary Care Provider Activ e Team Status: Inactive Member Role/Relationship Status Dates Angeles Kit VSC, BLOOD BANK LABORATORY TECHNICIAN-C Primary Care Provider Activ e Start: April 10, 2024 End: April 10, 2024 Dr. Josh Mijares MD Attending Provider Active Start: April 10, 2024 End: April 10, 2024 Dr. Josh Mijares MD Referring Provider Active Start: April 10, 2024 End: April 10, 2024 Team Status: Inactive Member Role/Relationship Status Dates Angeles Kit MELENDEZC, BLOOD BANK LABORATORY TECHNICIAN-C Primary Care Provider Activ e Start: May 14, 2024 End: May 14, 2024 Angeles Pantoja VSC, BLOOD BANK LABORATORY TECHNICIAN-C Attending Provider Active Start: May 14, 2024 End: May 14, 2024 Team Status: Inactive Member Role/Relationship Status Dates Angeles Kit VSC, BLOOD BANK LABORATORY TECHNICIAN-C Primary Care Provider Activ e Start: May 22, 2024 End: May 22, 2024 Zebulun Beam VSC, BLOOD BANK LABORATORY TECHNICIAN-C Attending Provider Active Start: May 22, 2024 End: May 22, 2024 Zebulun Beam VSC, BLOOD BANK LABORATORY TECHNICIAN-C Referring Provider Active Start: May 22, 2024 End: May 22, 2024 Team Status: Inactive Member Role/Relationship Status Dates Angeles Kit VSC, BLOOD BANK LABORATORY TECHNICIAN-C Primary Care Provider Activ e Start: July 29, 2024 End: July 29, 2024 Angeles Pantoja Jack, BLOOD BANK LABORATORY TECHNICIAN-C Attending Provider Active Start: July 29, 2024 End: July 29, 2024 FOR RECORDS PERTAINING TO PATIENTS WHO ARE [...] BE BASED ON THE PRIMARY CLINICAL RECORDS. [facility]. provides no warranty or guarantee of the accuracy or completeness of information in this document.
[2024-08-06 04:07] LABS: Thyroid Peroxidase AB < 9 IU/mL (0-34)
== END | disposition home or self-care (01) ==
LOC: VSLAB 14:39
PROVIDERS: PCP Nurse Practitioner Family; Visit Provider Nurse Practitioner Family
DX: E11.65 Type 2 diabetes mellitus with hyperglycemia (principal); E55.9 Vitamin D deficiency, unspecified; I10 Essential (primary) hypertension
CPT/HCPCS: 36415; 82043; 82728; 83540; 83550; 84439; 84443; 84481; 85025; 86376

== ENCOUNTER → 2024-10-17 | Outpatient (CLI) | payer MEDICARE, SELFPAY ==
--- NOTE | 2024-10-17 14:21 | CT_ITS ---
PROCEDURE: ABDOMEN/PELVIS WITH CONTRAST 10/17/2024 REASON FOR EXAM: INCISIONAL HERNIA Abdominal pain. TECHNIQUE: Procedure Code: [id number] Modality: CT Procedure: ABDOMEN/PELVIS WITH CONTRAST Coronal and Sagittal reconstruction series were provided. CONTRAST: Isovue 370 VOLUME: 100 mL One or more dose reduction techniques were used (e.g., Automated exposure control, adjustment of the mA and/or kV according to patient size, use of iterative reconstruction technique. RADIATION DOSE SUMMARY: Not provided. COMPARISON: None. FINDINGS: Lung bases: Negative. ABDOMEN Liver: Liver mildly shrunken and mildly nodular. Mild fatty infiltration of the liver. No focal mass. Biliary system: Negative. Negative for intrahepatic or extrahepatic ductal dilatation. Gallbladder: Removed. Spleen: Negative. Pancreas: Negative. Adrenals: Negative. Kidneys: Negative. Negative for kidney stones, cysts or masses. Bowel: Gastrointestinal tract adequately opacify with oral contrast. No focal lesions. Mild increased stool throughout the colon particularly the sigmoid colon and rectum with occasional diverticula. No active diverticulitis. Negative for small or large-bowel obstruction. Appendix: Negative. Vasculature: Moderate atherosclerotic vascular calcifications of the abdominal aorta and its branches. Peritoneum / Retroperitoneum: Negative. PELVIS Lymph nodes: Negative for inguinal or iliac adenopathy. Bladder: Negative Reproductive Organs: Hysterectomy. Bones and Soft Tissues: Lumbar spine fusion L3-S1. Age appropriate degenerative changes of the lumbar spine hips and pelvis. CT/Abdomen/Pelvis WITH Contrast IMPRESSION: Probable cirrhosis. Negative for acute intra-abdominal or pelvic pathology. Constipation. Reading Location: [id number]
--- NOTE | 2024-10-17 14:22 | CT_ITS ---
PROCEDURE: SOFT TISSUE NECK WITH CONTRAST 10/17/2024 REASON FOR EXAM: SWELLING,MASS AND LUMP NECK TECHNIQUE: Procedure Code: CTNEW Modality: CT Procedure: SOFT TISSUE NECK WITH CONTRAST CONTRAST: VOLUME: mL One or more dose reduction techniques were used (e.g., Automated exposure control, adjustment of the mA and/or kV according to patient size, use of iterative reconstruction technique). FINDINGS: A skin surface markers been placed over the area of interest along the lateral aspect of the left side of the neck. Deep to the skin surface marker, there is normal anatomy, including the inferior aspect of the superficial lobe of the left parotid gland, the left sternocleidomastoid muscle, and a nonspecific vessel. The parapharyngeal soft tissues appear symmetric and unremarkable. The visualized airway is patent. The major salivary glands appear symmetric and unremarkable. No cervical lymphadenopathy. The hyoid bone, thyroid cartilage, and cricoid cartilage appear intact. The epiglottis and aryepiglottic folds appear unremarkable. The vocal cords are symmetric. A 3.7 cm heterogeneous nodule is noted within the left lobe of the thyroid gland. Mild atherosclerotic calcifications. The visualized lung apices are clear. The visualized paranasal sinuses and mastoid air cells are clear. No acute osseous abnormality. No acute fracture. Anterior fusion of C5 through C7, with intervertebral disc spacers at C5-6 and C6-7. CT/Soft Tissue Neck WITH Contrast IMPRESSION: 1. No CT abnormality within the anatomy deep to the skin surface marker along the lateral aspect of the left side of the neck. 2. Heterogeneous 3.7 cm left thyroid lobe nodule. Recommend further evaluatio n with a thyroid ultrasound. Reading Location: [id number]
[2024-10-17 14:44] LABS: CREATININE FINGERSTICK < 1.0 mg/dL (0.55-1.02); EGFR FINGERSTICK > 60.0000 mL/min (>60)
== END | disposition home or self-care (01) ==
PROVIDERS: PCP Nurse Practitioner Family; Referring Provider Family Medicine; Visit Provider Family Medicine
DX: K43.2 Incisional hernia without obstruction or gangrene (principal); R22.1 Localized swelling, mass and lump, neck
CPT/HCPCS: 70491; 74177; Q9967

== ENCOUNTER → 2024-11-26 | Outpatient (CLI) | payer MEDICARE, SELFPAY ==
--- NOTE | 2024-11-26 13:57 | US_ITS ---
PROCEDURE: THYROID 11/26/2024 REASON FOR EXAM: NONTOXIC THYROID NODULE Thyroid nodule seen on prior CT scan dated October 17, 2024. TECHNIQUE: Procedure Code: USTHY Modality: US Procedure: THYROID COMPARISON: Prior CT scan dated October 17, 2024. FINDINGS: Right thyroid lobe size: 4.8 cm 1.5 cm 1.8 cm Left thyroid lobe size: 5 cm x 2.7 cm 2.2 cm Isthmus: 0.4 cm. There is a 1.3 cm 1 cm 0.6 cm hypoechoic solid nodule in the isthmus. Background parenchymal echotexture is homogeneous. Nodules: . Lobe: Right, Location: Lower pole, Size: 0.7 cm 0.8 cm x 0.4 cm, Stability: N/A Composition: Mixed cystic and solid (+1) Echogenicity: Hypoechoic (+2) Margin: Smooth (+0) Shape: Wider than tall (+0) Echogenic Foci: TI-RADS: 3 . Lobe: Right, Location: Lower, Size: 1 cm x 0.9 cm x 0.8 cm, Stability: N/A Composition: Mixed cystic and solid (+1) Echogenicity: Hyper to Isoechoic (+1) Margin: Smooth (+0) Shape: Wider than tall (+0) Echogenic Foci: None (+0) TI-RADS: 3 3.3 cm 2.6 cm 1.9 cm complex nodule in the upper pole of the left lobe of the thyroid. This is mostly solid in nature. Increased vascularity. TI-RADS category 4. Biopsy recommended. US/Thyroid IMPRESSION: Bilateral thyroid nodules. Dominant nodule in the left lobe as described measu ring 3.3 cm 2.6 cm 1.9 cm. Biopsy recommended. RECOMMENDATION: Based on most suspicious nodule. Nodule size = largest diameter Only evaluate nodule if =>5 mm. Growth > 20% in 2 dimensions = worsening. Follow up to 4 nodules. Recommend biopsy for no more than 2 nodules. Reading Location: [id number]
== END | disposition home or self-care (01) ==
LOC: US 13:53
PROVIDERS: PCP Nurse Practitioner Family; Referring Provider Family Medicine; Visit Provider Family Medicine
DX: E04.1 Nontoxic single thyroid nodule (principal)
CPT/HCPCS: 76536

== ENCOUNTER → 2024-12-04 | Outpatient (CLI) | payer MEDICARE, SELFPAY ==
--- NOTE | 2024-12-04 16:16 | RAD_ITS ---
PROCEDURE: RIGHT HAND MIN 3 VIEWS 12/04/2024 REASON FOR EXAM: RIGHT HAND PAIN TECHNIQUE: Procedure Code: DAVON Modality: DX Procedure: HAND MIN 3 VIEWS Laterality: Right COMPARISON: None. FINDINGS: No acute fracture or dislocation. Alignment is anatomic. Relatively well preserved joint spaces without erosion or significant arthrosis. Normal bone mineralization. Unremarkable soft tissues. RAD/Hand Min 3 Views IMPRESSION: No acute fracture, dislocation, or substantial arthrosis. Reading Location: [id number]
== END | disposition home or self-care (01) ==
PROVIDERS: PCP Nurse Practitioner Family; Referring Provider Surgery Plastic and Reconstructive Surgery; Visit Provider Surgery Plastic and Reconstructive Surgery
DX: M79.641 Pain in right hand (principal); D36.12 Benign neoplasm of peripheral nerves and autonomic nervous system, upper limb, including shoulder
CPT/HCPCS: 73130

== ENCOUNTER → 2024-12-10 | Outpatient (CLI) | payer MEDICARE, SELFPAY ==
--- NOTE | 2024-12-10 15:31 | US_ITS ---
PROCEDURE: US/Ext Non Vasc Limited/Soft Tiss
== END | disposition home or self-care (01) ==
LOC: US 15:28
PROVIDERS: PCP Nurse Practitioner Family; Referring Provider Surgery Plastic and Reconstructive Surgery; Visit Provider Surgery Plastic and Reconstructive Surgery
DX: D36.12 Benign neoplasm of peripheral nerves and autonomic nervous system, upper limb, including shoulder (principal)
CPT/HCPCS: 76882

== ENCOUNTER → 2024-12-25 | Outpatient (CLI) | payer MEDICARE, SELFPAY ==
--- NOTE | 2024-12-25 10:30 | CYSPIN_PTH ---
PATIENT: JACOBY COOK LOC: [facility] U#:[id number] AGE/SX: 64/F ROOM: RE12/25/[address]: Dr. Mason Aleman MD : 1960 BED: DIS: 12/25/2024 SPEC #: [id number] RECD: 12/25/24 11:35 STATUS: RHONDA REBlake #: [id number] MERLIN: 12/25/24 10:[address]: Mason Aleman DEPT: CYTOLOGY RECD BY: Paulo Ceron ENTERED: 12/25/24 14:17 SP TYPE: CYSPIN FL OTHR DR: Angeles Jauregui, [facility], TIRE AND TUBE REPAIRER-C Tissues: A - Thyroid gland, NOS Procedures: Pap Stain (control) Special Stain Group II Diff Quik Stain (control) Cytospin Fluid Cytology Other HEADER OPERATION: Fine needle aspiration of left superior thyroid nodule PRE-OP DIAGNOSIS: Left superior thyroid nodule TISSUE SUBMITTED: A- Left superior thyroid DIAGNOSIS CYTOLOGY A; Left superior thyroid, nodule, FNA (cytospin, smear x4): - Benign (TBS II). CYTOLOGY STUDY Slides are reviewed. CYTOLOGY GROSS A. Received is 30.5 ml of pink-cloudy cytolyt with particles and 4 smears labeled with the patient's name and and designated per the requisition as Left superior thyroid. Submitted for cytology and cytospin. Mr 12/25/2024 CPT:16841
== END | disposition home or self-care (01) ==
PROVIDERS: PCP Nurse Practitioner Family; Referring Provider Surgery; Visit Provider Surgery
DX: E04.1 Nontoxic single thyroid nodule (principal)
CPT/HCPCS: 88108; 88161; 88313

== ENCOUNTER → 2024-12-30 | Outpatient (CLI) | payer MEDICARE, SELFPAY ==
[2024-12-30 17:08] LABS: Hematocrit 38.6 % (37-47); Hemoglobin 13.3 g/dL (12.0-15.0); Immature Granulocytes Count 0.010 X10^3/uL (0.0-0.0); Mean Corp Hgb Conc 34.5 g/dL (32-36); Mean Corpuscular Volume 91.0 fL (81-99); Mean Platelet Vol. 10.1 fl (6.2-12.0); NRBC Flagged by Analyzer 0 % (0-5); Platelet Count 134 K/mm3 (150-450); RBC Distribution Width CV 13.9 % (11.6-14.6); RBC Distribution Width SD 46.5 fl (35.1-43.9); Red Blood Count 4.24 M/mm3 (4.2-5.4); White Blood Count 4.1 K/mm3 (4.4-11.0)
[2024-12-30 17:33] LABS: Microalbumin,Random Urine < 12.0 mg/L (<20 mg/L)
[2024-12-30 17:52] LABS: AST(SGOT) 37 U/L (<=31); Alanine Aminotransfer ALT/SGPT 31 U/L (<=34); Albumin, Serum 4.1 g/dL (3.4-4.8); Alkaline Phosphatase 40 U/L (35-104); Anion Gap 14 (5-15); BUN 17 mg/dL (4-19); BUN/Creat Ratio 14.0 RATIO (10-20); Calcium,Total 10.0 mg/dL (7.6-11.0); Carbon Dioxide 23.9 mmol/L (21.0-32.0); Chloride 98 mmol/L (98-108); Globulin 3.3 g/dL (2.2-4.2); Glucose 135 mg/dL (70-99); Potassium 3.8 mmol/L (3.3-5.1); Vitamin D,25 Hydroxy 68.4 ng/mL (30-100)
== END | disposition home or self-care (01) ==
LOC: VSLAB 13:41
PROVIDERS: PCP Nurse Practitioner Family; Referring Provider Nurse Practitioner Family; Visit Provider Nurse Practitioner Family
DX: I12.9 Hypertensive chronic kidney disease with stage 1 through stage 4 chronic kidney disease, or unspecified chronic kidney disease (principal); E11.65 Type 2 diabetes mellitus with hyperglycemia; E11.22 Type 2 diabetes mellitus with diabetic chronic kidney disease; N18.30 Chronic kidney disease, stage 3 unspecified; E55.9 Vitamin D deficiency, unspecified
CPT/HCPCS: 36415; 80053; 82043; 82306; 84443; 85025

== ENCOUNTER → 2025-01-26 | Outpatient (CLI) | payer MEDICARE, SELFPAY ==
--- NOTE | 2025-01-26 07:38 | US_ITS ---
PROCEDURE: ABD LIMITED W/ ELASTOGRAPHY 01/26/2025 REASON FOR EXAM: FATTY LIVER DISEASE COMPARISON: No relevant prior. TECHNIQUE: Procedure Code: [id number] Modality: US Procedure: ABD LIMITED W/ ELASTOGRAPHY FINDINGS: LIVER: Size: Unremarkable Length: 16.5 cm Echotexture: Hyper echogenic Contour: Normal Lesions: None identified Blood flow: Hepatopetal. Elastography: EQI Med: 17.9 kPa EQI Med [place]: 2.43 m/s GALLBLADDER: Surgically absent. COMMON BILE DUCT: Normal 0.95 cm. PANCREAS: Normal KIDNEYS: The right kidney measures 10.0 x 4.1 x 3.7 cm. Right renal cortex measures 1.3 cm in thickness. Renal echotexture is preserved. No hydronephrosis. US/ABD Limited w/ Elastography IMPRESSION: Elastography evaluation indicates F3 to F4, severe to advanced scarring of the liver. Steatosis. Status post cholecystectomy. Reference Values: SRU <1.37 m/s (5.7kPa): No to mild fibrosis 1.37 m/s - 2.2 m/s: Moderate to severe fibrosis >2.2 m/s (15kPa): Significant fibrosis / cirrhosis METAVIR Score F2 or higher: 1.34 m/s (5.7kPa) F3 or higher: 1.55 m/s (7.3kPa) F4: 1.80 m/s (10kPa) Reading Location: [place] [address]
== END | disposition home or self-care (01) ==
LOC: US 07:35
PROVIDERS: PCP Nurse Practitioner Family
DX: K76.0 Fatty (change of) liver, not elsewhere classified (principal)
CPT/HCPCS: 76705; 76981